=== PATIENT | male | born 1980 | race Two or more races ===

== ENCOUNTER 2024-09-15 16:24 | Emergency (ER) | payer MEDICAID, SELFPAY ==
--- NOTE | 2024-09-15 16:30 | EKG_ITS ---
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
--- NOTE | 2024-09-15 16:31 | XR_ITS ---
Examination: PA lateral chest 2 views Technique: Upright PA lateral chest 2 views Exam date and time: September 15, 2024 1738 hrs. Comparison August 25, 2024 Indications: Chest pain today Findings: Normal heart size No pneumonia or pulmonary edema Old right-sided rib fractures, old right clavicle fracture Impression: No pneumonia or pulmonary edema
--- NOTE | 2024-09-15 16:31 | PD.EDRME ---
Rapid Medical Screening Exam RME Arrival date/time: 09/15/24 16:24 43-year-old male presents the emergency department complaint of chest pain
[2024-09-15 16:36] VITALS: BP 108/77; PULSE 95; RESP 18; TEMP 36.9; O2SAT 100; BMI 26.9
[2024-09-15 16:38] VITALS: PULSE 88; RESP 16; O2SAT 98
[2024-09-15 17:36] LABS: Basophils # (Auto) 0.1 Thou/mm3 (0.0-0.2); Basophils % (Auto) 2 % (0-2.5); Eosinophils # (Auto) 0.2 Thou/mm3 (0.0-0.5); Eosinophils % (Auto) 4 % (0-10); Hematocrit 27.3 % (41.0-53.0); Hemoglobin 8.9 g/dL (13.5-16.0); Immature Granulocytes % (Auto) 0 % (0-0); Immature Granulocytes Auto 0.01 Thou/mm3 (0.00-0.00); Lymphocytes # (Auto) 1.2 Thou/mm3 (1.0-4.8); Lymphocytes % (Auto) 21 % (10-50); Mean Corpuscular HGB Conc 32.6 g/dl (31.0-37.0); Mean Corpuscular Hemoglobin 26.1 pg (25.0-35.0); Mean Corpuscular Volume 80 fL (80-100); Monocytes # (Auto) 0.4 Thou/mm3 (0.0-0.8); Monocytes % (Auto) 8 % (0-12); Neutrophils # (Auto) 3.6 Thou/mm3 (1.8-7.7); Neutrophils % (Auto) 65 % (37-80); Nucleated Red Blood Cell % 0 /100 WBC (0); RDW Standard Deviation 66.5 fL (35.1-43.9); Red Blood Count 3.41 Miln/mm3 (4.50-5.90); White Blood Count 5.5 Thou/mm3 (3.8-10.6)
[2024-09-15 17:50] LABS: INR 1.2 (0.9-1.3); Partial Thromboplastin Time 30.8 Seconds (22.0-36.0); Prothrombin Time 13.3 Seconds (9.0-12.2)
[2024-09-15 18:03] LABS: B-Type Natriuretic Peptide 71 pg/mL (0-100)
[2024-09-15 18:08] LABS: Platelet Count 31 Thou/mm3 (140-440)
[2024-09-15 18:11] LABS: Slide Review Platelets confirmed
[2024-09-15 18:18] LABS: Alanine Aminotransferase 22 U/L (10-49); Albumin, Serum 4.2 gm/dL (3.5-5.0); Albumin/Globulin Ratio 1.2 (1.2-2.2); Alkaline Phosphatase 222 U/L (46-116); Anion Gap 7 (7-16); Aspartate Amino Transferase 89 U/L (0-34); BUN/Creatinine Ratio 8 Ratio (12-20); Bilirubin,Total 1.1 mg/dL (0.3-1.2); Blood Urea Nitrogen < 5 mg/dL (9-23); Calcium 8.4 mg/dL (8.3-10.6); Calcium (Corrected) 8.4 mg/dL (8.5-10.1); Carbon Dioxide 28.8 mMol/L (20.0-31.0); Chloride 104 mMol/L (98-107); Creatinine (Component) 0.6 mg/dL (0.6-1.3); Estimated Creatinine Clearance 145.2 mL/min (>60); Globulin 3.6 gm/dL (2.3-3.5); Glucose 110 mg/dL (74-106); Lipase 43 U/L (12-53); Magnesium 1.8 mg/dL (1.6-2.6); Osmolality,Calculated 277 (275-295); Potassium 3.6 mMol/L (3.4-5.1); Sodium 140 mMol/L (136-145); Total Protein 7.8 gm/dL (5.7-8.2); Troponin I < 0.020 ng/mL (0.0-0.045); eGFR > 60 See Note
[2024-09-15 18:23] LABS: Alcohol, Blood Medical 455.4 mg/dL (0-10.0)
[2024-09-15 22:31] VITALS: BP 120/77; PULSE 81; RESP 16; O2SAT 94
--- NOTE | 2024-09-15 22:43 | EDNOTE_ITS ---
ED Chest Pain RME/HPI General Chief Complaint: Chest Pain Stated Complaint: CHEST PAIN Time Seen by Provider: 09/15/24 22:32 Source: patient and EMS Arrival date/time: 09/15/24 16:24 Mode of arrival: EMS Limitations: no limitations RME / HPI RME / HPI narrative: 09/15/24 16:24 43-year-old male presents the emergency department complaint of chest pain Dr. Van?s Main ED Evaluation: 43-year-old male well known to this facility for recurrent alcohol and continued alcohol use, cirrhosis, esophageal varices (grade 3), GI bleeding, portal hypertension, cirrhosis, hypertensive portal gastropathy, chronic alcohol use disorder, multiple hospital admissions for alcohol intoxication who presents to the emergency department via ambulance with left sided chest pain of which he had for approximately two years. He does admit to heavy alcohol consumption today. Denies nausea or vomiting. He denies melena or blood in stool. Related Data Home Medications ?Medication ?Instructions ?Recorded ?Confirmed cyclobenzaprine 5 mg tablet 5 mg PO 3XD 05/25/24 05/25/24 Previous Rx's ?Medication ?Instructions ?Recorded midodrine 5 mg tablet 5 mg PO TID #90 tabs 05/26/24 ferrous sulfate 325 mg (65 mg 325 mg PO QOD #60 tabs 08/11/24 iron) tablet,delayed release folic acid 1 mg tablet 5 mg (5 x 1 mg) PO QDAY 90 days 08/11/24 #450 tabs pantoprazole 40 mg tablet,delayed 40 mg PO QDAY #60 tabs 08/11/24 release thiamine mononitrate (vit B1) 100 100 mg PO QDAY 90 days #90 tabs 08/11/24 mg tablet chlordiazepoxide HCl 25 mg capsule 25 mg PO TID PRN alcohol 08/26/24 withdrawal #30 caps Allergies Allergy/AdvReac Type Severity Reaction Status Date / Time No Known Allergies Allergy Verified 08/25/24 18:01 Review of Systems Review of Systems Systems Reviewed: All systems reviewed, normal except as documented Past Medical History Past Medical History NEUROLOGIC: Negative Neurological Disorders or Seizures CARDIAC: Positive Cardiac Disorders, Myocardial Infarction, Angina and Hypertension; Negative Cardiac Arrhythmia, Atrial Fibrillation, Heart Murmur, Coronary Artery Disease, Atherosclerotic Heart Disease, Peripheral Vascular Disease, Hypercholesterolemia, Aneurysm, Congestive Heart Failure, Congenital Heart Disease, Rheumatic Fever, Cardiomyopathy, Edema, Pericarditis, Cellulitis, Deep Vein Thrombosis, Hypotension or Varicose Veins RESPIRATORY: Negative Chronic Obstructive Pulmonary Disease (COPD) or Asthma GASTROINTESTINAL: Positive Hepatitis, Gastrointestinal Bleed, Esophageal Varices and Gastroesophageal Reflux Disease; Negative Gastrointestinal Disorders, Cirrhosis, Pancreatitis, Celiac Disease, Gall Bladder Disease, Bettencourt's Esophagus, Colitis, Ulcerative Colitis, Diverticulitis, Diverticulosis, Ulcer, Irritable Bowel, Crohn's Disease, Obstructive Bowel, Hiatal Hernia, Hemorrhoids or Obesity GENITOURINARY: Negative Genitourinary Disorders or Renal Disease MUSCULOSKELETAL: Negative Musculoskeletal Disorders ENT: Negative Cataracts, Glaucoma, Blind, Retinal Detachment, Macular Degeneration, Ear Infection, Deafness or Eye Prosthesis ENDOCRINE: Negative Endocrine Disorders, Diabetes Mellitus Type 1, Diabetes Mellitus Type 2, Hypoglycemia, [place]'s Syndrome, Ada's Disease, Hyperthyroidism, Hypothyroidism, Parathyroid Disease, Pituitary Disease, Systemic Lupus Erythematosus, Syndrome of Inappropriate Antidiuretic Hormone (SIADH), Adrenal Disease or Graves' Disease HEMATOLOGIC: Positive Anemia; Negative Blood Disorders or Sickle Cell Disease PSYCHO/SOCIAL: Positive Recreational Drug Use, Depression and Anxiety OTHER HISTORY: Positive Hospitalization, Falls and Chicken Pox; Negative Autoimmune Disease, Down Syndrome, Developmental Delay, Blood Transfusions, Blood Transfusion Reaction, Anesthesia Reactions, Organ Transplant, MRSA, VRSA, Clostridium Difficile or Cancer Family History FAMILY HISTORY: Negative Family Psychiatric Problems, Family Respiratory Disorders, Family Cardiac Disorders, Family Gastrointestinal Problems, Family Cancer, Family Surgery or Family Anesthesia Reaction Surgical History SURGICAL: Negative Cardiac Surgery, Pacemaker, Endocrine Surgery, Ear Surgery, Abdominal Surgery, Nephrectomy, Joint Replacement, Neurologic Surgery, Vasectomy or Organ Transplant Social History SMOKING STATUS: Never smoker SECOND HAND EXPOSURE: No SUBSTANCE USE: methamphetamine ED Exam Narrative Physical exam: GENERAL APPEARANCE: AxOx4, generally well-appearing, no acute distress. Patient has a strong alcohol smell in breath with slurred speech. HEENT: NC, AT. MMM. EOMI, clear conjunctiva, oropharynx clear. NECK: Supple without lymphadenopathy. No stiffness or restricted ROM. HEART: Normal rate and regular rhythm, normal S1/S1, no m/r/g LUNGS: CTAB, moving air well. No crackles or wheezes are heard. ABDOMEN: Soft, nontender, nondistended with good bowel sounds heard. BACK: No midline C/T/L spine pain or deformity, No CVAT, no obvious deformity. EXTREMITIES: Without cyanosis, clubbing or edema. MUSCULOSKELETAL: FROM of all major joints, no chest tenderness NEUROLOGICAL: Grossly nonfocal. Alert and oriented, moving all 4 extremities. CN not formally tested but appear grossly intact. Observed to ambulate with normal gait. Skin: Warm and dry without any rash. General Limitations: Present no limitations Course Quality Measures none Orders Category Date Time Status EKG (ED ONLY) *Do not use* NOW Care 09/15/24 16:30 Completed EKG (ED Only) Stat Exams 09/15/24 16:30 Draft XR chest 2V Stat Exams 09/15/24 16:31 Completed Alcohol, Blood Medical Stat Lab 09/15/24 17:20 Completed B-Type Natriuretic Peptide Stat Lab 09/15/24 17:20 Completed CBC Stat Lab 09/15/24 17:20 Completed Comprehensive Metabolic Panel Stat Lab 09/15/24 17:20 Completed Hemoglobin and Hematocrit Stat Lab 09/15/24 23:08 Completed Lipase Stat Lab 09/15/24 17:20 Completed Magnesium Stat Lab 09/15/24 17:20 Completed Partial Thromboplastin Time Stat Lab 09/15/24 17:20 Completed Prothrombin Time with INR Stat Lab 09/15/24 17:20 Completed Troponin I Stat Lab 09/15/24 17:20 Completed Vital Signs Vital signs: Vital Signs Temperature 98.5 F 09/15/24 16:36 Pulse Rate 95 09/15/24 16:36 Respiratory Rate 18 09/15/24 16:36 Blood Pressure 108/77 09/15/24 16:36 Pulse Oximetry (%) 100 09/15/24 16:36 Oxygen Delivery Method Room Air 09/15/24 16:36 Procedures -ED Procedure Comment Manual EKG Reading, 09/15/24 1630 hours: Interpreted by me, NSR at a rate of 97, normal intervals, borderline left axis deviation, no acute ST or T wave changes. Chest Pain MDM Narrative MDM Narrative:: Mr. Wells is well-known to me in the emergency department several visits for alcohol intoxication. He he has severe alcohol dependence, quite advanced cirrhosis with portal hypertension and esophageal varices. He he has chronic chest pain of which he has frequent visits for in the emergency department while he is also intoxicated. He is actively intoxicated here in the emergency department. Labs otherwise are consistent with his chronic cirrhosis, with pancytopenia without acute changes. He has anemia with a hemoglobin of 8.9 which is chronic and repeat hemoglobin is 8.1 which is stable. He denies recent bloody emesis, melena or blood in stool. I have counseled him at length of the dangers of continued alcohol consumption and the benefits of cessation. He expresses no interest in stopping alcohol and plans to have another drink upon discharge. Scribe Attestation: I, Catracho Tanner, am scribing for and in the presence of Dr. Van. Provider Notation: Although this document has been carefully reviewed, there may still be some phonetic and other typographical errors. These errors are purely grammatical due to imperfections in the software program and should not be construed in any way to compromise the substance of the patient's medical care during this visit. Patient data External records reviewed:: [facility] previous records (multiple hospital admissions for alcohol intoxication 08/11/24) and EMS form Clinical information provided by:: patient and EMS Social determinants that could affect healthcare access:: alcohol use Patient has the following chronic illnesses:: esophageal varices (grade 3), portal hypertension, cirrhosis, hypertensive port al gastropathy, chronic alcohol use disorder, multiple hospital admissions for alcohol intoxication How is presenting disease/condition affected by chronic disease/condition?: exacerbated by Evaluation data The following diagnostics were reviewed and interpreted by me:: lab results, radiology exam(s) and EKG tracing(s) Lab and/or radiology exams considered but not ordered:: None Interpretation Summary: I personally reviewed the radiology data and agree with the radiologist's interpretation. Examination: PA lateral chest 2 views Technique: Upright PA lateral chest 2 views Exam date and time: September 15, 2024 1738 hrs. Comparison August 25, 2024 Indications: Chest pain today Findings: Normal heart size No pneumonia or pulmonary edema Old right-sided rib fractures, old right clavicle fracture Impression: No pneumonia or pulmonary edema Dictated By: Zach Masters MD Medications / Prescriptions Medications or Prescriptions considered but not ordered:: None Medication administrations:: As above, if any Consultations Consultation(s) initiated? (list below): No Diagnosis Most likely diagnosis given after review of the tests above:: Chest pain, Alcohol abuse, Alcoholism, chronic, Alcohol intoxication Admission Indicated Admission indicated?: not indicated Admission Request Was there a request for admission?: No Disposition Plan Disposition Plan: Discharge Discharge Attestation Discharge Attestation: The patient and all family members were given an opportunity to ask questions and understood the discharge instructions. Discharge instructions specifically effects, indications for sooner follow up or return to the emergency department, and the expected course of current diagnosis. Patient condition: Stable Discharge Plan Plan Patient Disposition: HOME (Self Care) Prescriptions/Referrals Prescriptions/Med Rec: No Action cyclobenzaprine 5 mg tablet 5 mg PO 3XD Patient Comments: TAKE 1 TABLET BY MOUTH NEEDED FOR MUSCLE PAIN 3 TIMES DAILY 10 DAYS midodrine 5 mg tablet 5 mg PO TID Qty: 90 0RF Rx Instructions: do not give last dose of day after 6PM or within 4 hrs of bedtime thiamine mononitrate (vit B1) 100 mg Tablet 100 mg PO QDAY 90 Days Qty: 90 0RF folic acid 1 mg Tablet 5 mg PO QDAY 90 Days Qty: 450 0RF ferrous sulfate 325 mg (65 mg iron) Tablet,Delayed Release (Dr/Ec) 325 mg PO QOD Qty: 60 0RF pantoprazole 40 mg tablet,delayed release (DR/EC) 40 mg PO QDAY Qty: 60 0RF chlordiazepoxide HCl 25 mg capsule 25 mg PO TID PRN (Reason: alcohol withdrawal) Qty: 30 0RF Referrals: No Primary/Family,Physician [Primary Care Provider] - In 1 week Problem List Clinical Impression: Chest pain, Alcohol abuse, Alcoholism, chronic, Alcohol intoxication Patient/Caregiver Discharge Instructions Education Materials: ED Alcohol Intoxication, ED Alcohol Abuse Additional Instructions: Wandy de beber alcohol. Puede realizar un seguimiento con wyatt m?dico de atenci?n primaria y/o con el departamento de lizette mental del condado si se siente pre parado para la rehabilitaci?n de alcohol o drogas. Puede regresar al departamento de emergencias de santiago pronto fausto los s?ntomas empeoren o si nota alg?n problema nuevo que le preocupe. Print Language: Bangladeshi Stand Alone Forms: Kallie Award Info., Patient Portal Info Letter
[2024-09-15 23:37] LABS: Hematocrit 24.5 % (41.0-53.0); Hemoglobin 8.1 g/dL (13.5-16.0)
[2024-09-16 00:26] VITALS: BP 120/77; PULSE 84; RESP 19; O2SAT 96
== END 2024-09-16 00:29 | disposition home or self-care (01) ==
PROVIDERS: Nurse Practitioner Primary Care; Emergency Provider Emergency Medicine
DX: F10.229 Alcohol dependence with intoxication, unspecified (principal); Y90.8 Blood alcohol level of 240 mg/100 ml or more; R07.89 Other chest pain; I25.2 Old myocardial infarction; I10 Essential (primary) hypertension
CPT/HCPCS: 36415; 71046; 80053; 80307; 80320; 81001; 83690; 83735; 83880; 84484; 85014; 85018; 85025; 85610; 85730; 93005; 99283; G0480

== ENCOUNTER 2024-09-19 16:13 | Emergency (ER) | payer MEDICAID, SELFPAY ==
[2024-09-19] VITALS (9 sets, daily range): BP systolic 90–101; BP diastolic 56–69; PULSE 60–74; RESP 15–19; TEMP 36.8; O2SAT 92–98; BMI 24.2
--- NOTE | 2024-09-19 16:57 | EKG_ITS ---
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
--- NOTE | 2024-09-19 17:51 | XR_ITS ---
Examination: AP chest single view Technique: AP portable upright chest single view Exam date and time: September 19, 2024 at 1816 hrs. Indications: Onset chest pain today Findings: Minimal prominence left ventricle No pneumonia or pulmonary edema Again noted old right-sided rib fractures and old right clavicle fracture Impression: No active disease
--- NOTE | 2024-09-19 17:56 | PD.EDCHEST ---
ED Chest Pain RME/HPI General Chief Complaint: Chest Pain Stated Complaint: CHEST PAIN Time Seen by Provider: 09/19/24 17:22 Arrival date/time: 09/19/24 16:13 This is a 43-year-old male who is well known to this facility for recurrent alcohol and continued alcohol use, cirrhosis, esophageal varices (grade 3), GI bleeding, portal hypertension, cirrhosis, hypertensive portal gastropathy, chronic alcohol use disorder, multiple hospital admissions for alcohol intoxication who presents to the emergency department via ambulance with left sided chest pain of which he had for approximately two years. He does admit to heavy alcohol consumption today, he reports his last drink was about 230 today in the afternoon. Denies nausea or vomiting. He denies melena or blood in stool. Patient complains of chest pain that started prior to arrival. Related Data Home Medications ?Medication ?Instructions ?Recorded ?Confirmed cyclobenzaprine 5 mg tablet 5 mg PO 3XD 05/25/24 05/25/24 Previous Rx's ?Medication ?Instructions ?Recorded midodrine 5 mg tablet 5 mg PO TID #90 tabs 05/26/24 ferrous sulfate 325 mg (65 mg 325 mg PO QOD #60 tabs 08/11/24 iron) tablet,delayed release folic acid 1 mg tablet 5 mg (5 x 1 mg) PO QDAY 90 days 08/11/24 #450 tabs pantoprazole 40 mg tablet,delayed 40 mg PO QDAY #60 tabs 08/11/24 release thiamine mononitrate (vit B1) 100 100 mg PO QDAY 90 days #90 tabs 08/11/24 mg tablet chlordiazepoxide HCl 25 mg capsule 25 mg PO TID PRN alcohol 08/26/24 withdrawal #30 caps Allergies Allergy/AdvReac Type Severity Reaction Status Date / Time No Known Allergies Allergy Verified 08/25/24 18:01 Review of Systems Review of Systems Systems Reviewed: All systems reviewed, normal except as documented Past Medical History Past Medical History NEUROLOGIC: Negative Neurological Disorders or Seizures CARDIAC: Positive Cardiac Disorders, Myocardial Infarction, Angina and Hypertension; Negative Cardiac Arrhythmia, Atrial Fibrillation, Heart Murmur, Coronary Artery Disease, Atherosclerotic Heart Disease, Peripheral Vascular Disease, Hypercholesterolemia, Aneurysm, Congestive Heart Failure, Congenital Heart Disease, Rheumatic Fever, Cardiomyopathy, Edema, Pericarditis, Cellulitis, Deep Vein Thrombosis, Hypotension or Varicose Veins RESPIRATORY: Negative Chronic Obstructive Pulmonary Disease (COPD) or Asthma GASTROINTESTINAL: Positive Hepatitis, Gastrointestinal Bleed, Esophageal Varices and Gastroesophageal Reflux Disease; Negative Gastrointestinal Disorders, Cirrhosis, Pancreatitis, Celiac Disease, Gall Bladder Disease, Bettencourt's Esophagus, Colitis, Ulcerative Colitis, Diverticulitis, Diverticulosis, Ulcer, Irritable Bowel, Crohn's Disease, Obstructive Bowel, Hiatal Hernia, Hemorrhoids or Obesity GENITOURINARY: Negative Genitourinary Disorders or Renal Disease MUSCULOSKELETAL: Negative Musculoskeletal Disorders ENT: Negative Cataracts, Glaucoma, Blind, Retinal Detachment, Macular Degeneration, Ear Infection, Deafness or Eye Prosthesis ENDOCRINE: Negative Endocrine Disorders, Diabetes Mellitus Type 1, Diabetes Mellitus Type 2, Hypoglycemia, [place]'s Syndrome, [place]'s Disease, Hyperthyroidism, Hypothyroidism, Parathyroid Disease, Pituitary Disease, Systemic Lupus Erythematosus, Syndrome of Inappropriate Antidiuretic Hormone (SIADH), Adrenal Disease or Graves' Disease HEMATOLOGIC: Positive Anemia; Negative Blood Disorders or Sickle Cell Disease PSYCHO/SOCIAL: Positive Recreational Drug Use, Depression and Anxiety OTHER HISTORY: Positive Hospitalization, Falls and Chicken Pox; Negative Autoimmune Disease, Down Syndrome, Developmental Delay, Blood Transfusions, Blood Transfusion Reaction, Anesthesia Reactions, Organ Transplant, MRSA, VRSA, Clostridium Difficile or Cancer Family History FAMILY HISTORY: Negative Family Psychiatric Problems, Family Respiratory Disorders, Family Cardiac Disorders, Family Gastrointestinal Problems, Family Cancer, Family Surgery or Family Anesthesia Reaction Surgical History SURGICAL: Negative Cardiac Surgery, Pacemaker, Endocrine Surgery, Ear Surgery, Abdominal Surgery, Nephrectomy, Joint Replacement, Neurologic Surgery, Vasectomy or Organ Transplant Social History SMOKING STATUS: Never smoker SECOND HAND EXPOSURE: No SUBSTANCE USE: methamphetamine ED Exam General General appearance: Present alert and in no apparent distress Head Head exam: Present atraumatic Eye Eye exam: Present normal appearance, PERRL and EOMI ENT ENT exam: Present normal exam, normal oropharynx and mucous membranes moist Neck Neck exam: Present normal inspection, full ROM and trachea midline Chest Chest inspection: Present normal inspection and symmetric chest wall rise Respiratory Respiratory exam: Present normal lung sounds bilaterally Cardiovascular Cardiovascular exam: Present regular rate, normal rhythm and normal heart sounds Abdominal Exam Abdominal exam: Present soft Extremities Exam Extremities exam: Present normal inspection and full ROM Back Exam Back exam: Present normal inspection and full ROM Neurological Exam Neurological exam: Present alert and oriented X3 Psychiatric Psychiatric exam: Present normal affect and normal mood Skin Skin exam: Present warm, dry, intact and normal color Course Quality Measures none Orders Category Date Time Status EKG (ED ONLY) *Do not use* NOW Care 09/19/24 16:57 Completed EKG (ED Only) Stat Exams 09/19/24 16:57 Draft XR chest 1V Stat Exams 09/19/24 17:51 Completed BNP [B-Type Natriuretic Peptide] Stat Lab 09/19/24 18:02 Completed CBC Stat Lab 09/19/24 18:02 Completed Comprehensive Metabolic Panel Stat Lab 09/19/24 18:02 Completed Drug Screen,Urine Stat Lab 09/19/24 18:32 Completed Lipase Stat Lab 09/19/24 18:02 Completed Troponin I Stat Lab 09/19/24 18:02 Completed Urinalysis, C/S if Indicated Stat Lab 09/19/24 18:48 Completed Vital Signs Vital signs: Vital Signs Temperature 98.2 F 09/19/24 16:15 Pulse Rate 61 09/19/24 16:15 Respiratory Rate 17 09/19/24 16:15 Blood Pressure 90/56 L 09/19/24 16:15 Pulse Oximetry (%) 95 09/19/24 16:15 Oxygen Delivery Method Room Air 09/19/24 16:15 Procedures -ED EKG Interpretation #1: Date of EK09/19/24 Time of EK:10 Rate: 58 Interpretation: Interpreted by me (sinus bradycardia ) EKG Impression: No ectopy, Normal QRS and Normal intervals Chest Pain MDM Narrative MDM Narrative:: Labs Show hgb hct of 8.5 and 26, 40 plt count, Pt lfts show ast 109, alt 23, and alk phos pf 233. Pt bnp 187, urine unremarkable. Pt hgb appears to be somehat unchanged from previous lab draw. Pt chronic alcoholic. Patient reports feeling better. Patient eating a sandwich and drinking orange juice. Patient told to follow-up with primary provider in 1 to 2 days. Come back to the emergency room if symptoms change or worsen. Patient comfortable plan of care. Patient able top ambulate out of emergency room with no issues, unassited, steady gait. Chest x ray: Findings: Minimal prominence left ventricle No pneumonia or pulmonary edema Again noted old right-sided rib fractures and old right clavicle fracture Impression: No active disease Patient data External records reviewed:: [facility] previous records Clinical information provided by:: patient Social determinants that could affect healthcare access:: alcohol use Patient has the following chronic illnesses:: see hpi How is presenting disease/condition affected by chronic disease/condition?: exacerbated by Evaluation data The following diagnostics were reviewed and interpreted by me:: lab results, radiology exam(s) and EKG tracing(s) Lab and/or radiology exams considered but not ordered:: none Interpretation Summary: see note Medications / Prescriptions Medications or Prescriptions considered but not ordered:: none Medication administrations:: see note Consultations Consultation(s) initiated? (list below): No Diagnosis Most likely diagnosis given after review of the tests above:: chropnic alcoholism Admission Indicated Admission indicated?: not indicated Admission Request Was there a request for admission?: No Disposition Plan Disposition Plan: Discharge Discharge Attestation Discharge Attestation: The patient and all family members were given an opportunity to ask questions and understood the discharge instructions. Discharge instructions specifically effects, indications for sooner follow up or return to the emergency department, and the expected course of current diagnosis. Patient condition: Stable Discharge Plan Plan Patient Disposition: HOME (Self Care) Patient condition on transfer: Stable Prescriptions/Referrals Prescriptions/Med Rec: No Action cyclobenzaprine 5 mg tablet 5 mg PO 3XD Patient Comments: TAKE 1 TABLET BY MOUTH NEEDED FOR MUSCLE PAIN 3 TIMES DAILY 10 DAYS midodrine 5 mg tablet 5 mg PO TID Qty: 90 0RF Rx Instructions: do not give last dose of day after 6PM or within 4 hrs of bedtime thiamine mononitrate (vit B1) 100 mg Tablet 100 mg PO QDAY 90 Days Qty: 90 0RF folic acid 1 mg Tablet 5 mg PO QDAY 90 Days Qty: 450 0RF ferrous sulfate 325 mg (65 mg iron) Tablet,Delayed Release (Dr/Ec) 325 mg PO QOD Qty: 60 0RF pantoprazole 40 mg tablet,delayed release (DR/EC) 40 mg PO QDAY Qty: 60 0RF chlordiazepoxide HCl 25 mg capsule 25 mg PO TID PRN (Reason: alcohol withdrawal) Qty: 30 0RF Referrals: No Primary/Family,Physician [Primary Care Provider] - In 1 week Problem List Clinical Impression: Chest pain, Alcoholism, Alkaline phosphatase elevation Patient/Caregiver Discharge Instructions Discharge Activity: activity as tolerated Education Materials: Alcoholism Resources Additional Instructions: Follow up with primary provider in 1-2 days. Come back to ED if symptoms change or worsen Print Language: Serbian Stand Alone Forms: Kallie Award Info., Patient Portal Info Letter PA/KINDERGARTEN TEACHER ASSISTANT Supervising Physician PA/KINDERGARTEN TEACHER ASSISTANT Supervising Physician: osmar
[2024-09-19 18:41] LABS: Basophils # (Auto) 0.1 Thou/mm3 (0.0-0.2); Basophils % (Auto) 2 % (0-2.5); Eosinophils # (Auto) 0.4 Thou/mm3 (0.0-0.5); Eosinophils % (Auto) 7 % (0-10); Immature Granulocytes % (Auto) 0 % (0-0); Immature Granulocytes Auto 0.01 Thou/mm3 (0.00-0.00); Lymphocytes # (Auto) 1.6 Thou/mm3 (1.0-4.8); Lymphocytes % (Auto) 24 % (10-50); Mean Corpuscular HGB Conc 32.7 g/dl (31.0-37.0); Mean Corpuscular Hemoglobin 26.2 pg (25.0-35.0); Mean Corpuscular Volume 80 fL (80-100); Monocytes # (Auto) 0.6 Thou/mm3 (0.0-0.8); Monocytes % (Auto) 9 % (0-12); Neutrophils # (Auto) 3.9 Thou/mm3 (1.8-7.7); Neutrophils % (Auto) 59 % (37-80); Nucleated Red Blood Cell % 0 /100 WBC (0); RDW Standard Deviation 66.4 fL (35.1-43.9); Red Blood Count 3.24 Miln/mm3 (4.50-5.90); White Blood Count 6.6 Thou/mm3 (3.8-10.6)
[2024-09-19 18:42] LABS: Hemoglobin 8.5 g/dL (13.5-16.0); Platelet Count 40 Thou/mm3 (140-440); Slide Review Platelets confirmed
[2024-09-19 18:45] LABS: B-Type Natriuretic Peptide 187 pg/mL (0-100)
[2024-09-19 18:47] LABS: Alanine Aminotransferase 23 U/L (10-49); Albumin/Globulin Ratio 1.2 (1.2-2.2); Alkaline Phosphatase 233 U/L (46-116); Anion Gap 10 (7-16); Aspartate Amino Transferase 109 U/L (0-34); BUN/Creatinine Ratio 12 Ratio (12-20); Bilirubin,Total 1.1 mg/dL (0.3-1.2); Blood Urea Nitrogen 7 mg/dL (9-23); Calcium 8.4 mg/dL (8.3-10.6); Calcium (Corrected) 8.4 mg/dL (8.5-10.1); Carbon Dioxide 22.4 mMol/L (20.0-31.0); Chloride 105 mMol/L (98-107); Creatinine (Component) 0.6 mg/dL (0.6-1.3); Estimated Creatinine Clearance 144.7 mL/min (>60); Globulin 3.3 gm/dL (2.3-3.5); Glucose 104 mg/dL (74-106); Lipase 42 U/L (12-53); Osmolality,Calculated 271 (275-295); Potassium 3.5 mMol/L (3.4-5.1); Sodium 137 mMol/L (136-145); Total Protein 7.3 gm/dL (5.7-8.2); Troponin I < 0.020 ng/mL (0.0-0.045); eGFR > 60 See Note
[2024-09-19 19:02] LABS: Collection Type, Urine Voided; Squamous Epithelial Cell,Urine 0 /hpf (0-5)
[2024-09-19 19:06] LABS: Bilirubin,Urine Negative (Negative); Blood,Urine Negative (Negative); Clarity,Urine Clear (Clear/Hazy); Color,Urine Colorless (Lt Yel-Yel); Culture Indicated,Urine Not Indicated; Glucose, Urine Negative (Negative); Ketones,Urine Negative (Negative); Leukocyte Esterase,Urine Negative (Negative); Nitrite,Urine Negative (Negative); PH,Urine 6.5 (5.0-7.0); Protein,Urine Negative (Neg - Trace); RBC,Urine 1 /hpf (0-3); Specific Gravity,Urine 1.004 (1.001-1.035); Urobilinogen,Urine Negative mg/dL (0.0-1.0); WBC,Urine < 1 /hpf (0-5)
[2024-09-19 19:37] LABS: Amphetamine/Methamp Scrn,U Negative (Negative); Barbiturate Screen,Urine Negative (Negative); Benzodiazepines Screen,Urine Positive (Negative); Benzoylecgonine Screen, Ur Negative (Negative); Fentanyl Screen,Urine Negative (Negative); Opiate Screen,Urine Negative (Negative); THC Screen,Urine Negative (Negative)
== END 2024-09-19 21:06 | disposition home or self-care (01) ==
PROVIDERS: Nurse Practitioner Family; Emergency Provider Emergency Medicine
DX: R07.9 Chest pain, unspecified (principal); F10.20 Alcohol dependence, uncomplicated; R00.1 Bradycardia, unspecified; K70.30 Alcoholic cirrhosis of liver without ascites; I85.10 Secondary esophageal varices without bleeding
CPT/HCPCS: 36415; 71045; 80053; 80307; 81001; 83690; 83880; 84484; 85025; 93005; 99283

== ENCOUNTER 2024-11-21 14:24 | Emergency (ER) | payer MEDICAID, SELFPAY ==
[2024-11-21 14:26] VITALS: BMI 25.8
[2024-11-21 14:38] VITALS: BP 128/76; PULSE 113; RESP 20; TEMP 36.7; O2SAT 95
--- NOTE | 2024-11-21 15:04 | XR_ITS ---
Examination: CT brain head without contrast. 2-D sagittal coronal reconstructions Date and time of exam:November 21, 2024 1510 hrs. Comparison: March 24, 2024 Indications: General denies head pain beginning 3 days ago, worse today CTDI: vol (mGy):46.5 DLP: (mGycm):961 Technique: Multiple CT axial sections of the brain have been obtained, 5 mm slice thickness. Contrast has not been administered. 2-D sagittal, coronal reconstructions have been obtained Low dose protocols were performed. One or more of the following dose reduction techniques were used; automated exposure control, adjustment of the mA and/or KV according to patient size, use of iterative reconstruction technique. Findings: No significant ventricular enlargement. Intra-axial or extra-axial hemorrhage density is not seen. No mass effect or midline shift Basal cisterns are not remarkable. Fourth ventricle is midline. Cranial vault intact. Impression: Negative for acute hemorrhage, mass effect or midline shift Significant chronic left frontal left ethmoid sinusitis
--- NOTE | 2024-11-21 15:06 | PD.EDRME ---
Rapid Medical Screening Exam RME Arrival date/time: 11/21/24 14:24 44-year-old male alcoholic presents to the emergency department today with complaint of headaches and bodyaches Chief Complaint: Headache Time Seen by Provider: 11/21/24 14:37 Vital signs: Vital Signs Temperature 98.1 F 11/21/24 14:38 Pulse Rate 113 H 11/21/24 14:38 Respiratory Rate 20 11/21/24 14:38 Blood Pressure 128/76 11/21/24 14:38 Pulse Oximetry (%) 95 11/21/24 14:38 Oxygen Delivery Method Room Air 11/21/24 14:38
[2024-11-21 15:20] LABS: Collection Type, Urine Clean Catch; Squamous Epithelial Cell,Urine 0 /hpf (0-5)
[2024-11-21 15:32] LABS: Amorphous Crystals,Urine Present (Absent); Bacteria,Urine Rare; Bilirubin,Urine Negative (Negative); Blood,Urine Negative (Negative); Clarity,Urine Clear (Clear/Hazy); Color,Urine Yellow (Lt Yel-Yel); Culture Indicated,Urine Not Indicated; Glucose, Urine Negative (Negative); Ketones,Urine Negative (Negative); Leukocyte Esterase,Urine Positive (Negative); Nitrite,Urine Negative (Negative); PH,Urine 6.5 (5.0-7.0); Protein,Urine Negative (Neg - Trace); RBC,Urine 4 /hpf (0-3); Specific Gravity,Urine 1.009 (1.001-1.035); WBC,Urine 3 /hpf (0-5)
[2024-11-21 15:43] LABS: Basophils # (Auto) 0.1 Thou/mm3 (0.0-0.2); Basophils % (Auto) 1 % (0-2.5); Eosinophils # (Auto) 0.3 Thou/mm3 (0.0-0.5); Eosinophils % (Auto) 5 % (0-10); Hematocrit 26.8 % (41.0-53.0); Immature Granulocytes % (Auto) 0 % (0-0); Immature Granulocytes Auto 0.02 Thou/mm3 (0.00-0.00); Lymphocytes # (Auto) 0.9 Thou/mm3 (1.0-4.8); Lymphocytes % (Auto) 16 % (10-50); Mean Corpuscular HGB Conc 32.8 g/dl (31.0-37.0); Mean Corpuscular Hemoglobin 27.6 pg (25.0-35.0); Mean Corpuscular Volume 84 fL (80-100); Monocytes # (Auto) 0.5 Thou/mm3 (0.0-0.8); Monocytes % (Auto) 9 % (0-12); Neutrophils # (Auto) 3.9 Thou/mm3 (1.8-7.7); Neutrophils % (Auto) 69 % (37-80); Nucleated Red Blood Cell % 0 /100 WBC (0); Red Blood Count 3.19 Miln/mm3 (4.50-5.90); White Blood Count 5.7 Thou/mm3 (3.8-10.6)
[2024-11-21 15:47] LABS: Hemoglobin 8.8 g/dL (13.5-16.0); Platelet Count 35 Thou/mm3 (140-440)
[2024-11-21 15:48] LABS: Slide Review Platelets confirmed
[2024-11-21 15:59] LABS: INR 1.3 (0.9-1.3); Partial Thromboplastin Time 32.7 Seconds (22.0-36.0); Prothrombin Time 13.5 Seconds (9.0-12.2)
[2024-11-21 16:21] LABS: Alanine Aminotransferase 13 U/L (10-49); Albumin, Serum 4.2 gm/dL (3.5-5.0); Alkaline Phosphatase 289 U/L (46-116); Anion Gap 10 (7-16); Aspartate Amino Transferase 80 U/L (0-34); BUN/Creatinine Ratio 8 Ratio (12-20); Bilirubin,Total 1.5 mg/dL (0.3-1.2); Blood Urea Nitrogen < 5 mg/dL (9-23); Calcium 8.5 mg/dL (8.3-10.6); Calcium (Corrected) 8.5 mg/dL (8.5-10.1); Chloride 98 mMol/L (98-107); Creatinine (Component) 0.6 mg/dL (0.6-1.3); Estimated Creatinine Clearance 143.3 mL/min (>60); Globulin 4.3 gm/dL (2.3-3.5); Glucose 111 mg/dL (74-106); Lipase 36 U/L (12-53); Magnesium 1.5 mg/dL (1.6-2.6); Osmolality,Calculated 270 (275-295); Potassium 3.6 mMol/L (3.4-5.1); Sodium 136 mMol/L (136-145); Total Protein 8.5 gm/dL (5.7-8.2); eGFR > 60 See Note
[2024-11-21 18:27] LABS: Amphetamine/Methamp Scrn,U Negative (Negative); Barbiturate Screen,Urine Negative (Negative); Benzodiazepines Screen,Urine Positive (Negative); Benzoylecgonine Screen, Ur Negative (Negative); Fentanyl Screen,Urine Negative (Negative); Opiate Screen,Urine Negative (Negative); THC Screen,Urine Negative (Negative)
--- NOTE | 2024-11-21 22:57 | PC.NURSE ---
PT CALLED FROM LOBBY AND I RECEIVED NO ANSWER X1
--- NOTE | 2024-11-21 23:22 | PC.NURSE ---
PT CALLED FROM THE LOBBY X2 WITH NO ANSWER
--- NOTE | 2024-11-21 23:35 | PC.NURSE ---
PT CALLED FROM LOBBY X3 WITH NO ANSWER
== END 2024-11-21 23:49 | disposition left against medical advice (07) ==
LOC: SERX 15:30
PROVIDERS: Nurse Practitioner Primary Care; Emergency Provider Emergency Medicine; PCP Family Medicine
DX: R51.9 Headache, unspecified (principal); Z53.29 Procedure and treatment not carried out because of patient's decision for other reasons
CPT/HCPCS: 36415; 70450; 80053; 80307; 80320; 81001; 83690; 83735; 85025; 85610; 85730; 87400; 87811; 99284; G0480

== ENCOUNTER 2024-11-24 16:22 | Emergency (ER) | payer MEDICAID, SELFPAY ==
[2024-11-24 16:49] VITALS: PULSE 80; O2SAT 98
[2024-11-24 17:30] VITALS: BP 108/73; PULSE 79; RESP 19; TEMP 37.1; O2SAT 95; BMI 30.7
--- NOTE | 2024-11-24 17:30 | PD.EDHA ---
ED Headache RME/HPI General Chief Complaint: Headache Stated Complaint: HEADACHES Time Seen by Provider: 11/24/24 16:54 Arrival date/time: 11/24/24 16:22 44-year-old male reports with complaints of persistent headache. Patient was evaluated and found to had ethmoid sinusitis. Patient states that he has not taken any medications for symptoms he denies shortness of breath dizziness blurred vision ringing in ears chest pain nausea vomiting weakness or fatigue. Limitations: no limitations Related Data Home Medications ?Medication ?Instructions ?Recorded ?Confirmed cyclobenzaprine 5 mg tablet 5 mg PO 3XD 05/25/24 05/25/24 Previous Rx's ?Medication ?Instructions ?Recorded midodrine 5 mg tablet 5 mg PO TID #90 tabs 05/26/24 ferrous sulfate 325 mg (65 mg 325 mg PO QOD #60 tabs 08/11/24 iron) tablet,delayed release pantoprazole 40 mg tablet,delayed 40 mg PO QDAY #60 tabs 08/11/24 release chlordiazepoxide HCl 25 mg capsule 25 mg PO TID PRN alcohol 08/26/24 withdrawal #30 caps azithromycin 250 mg tablet 250 mg PO QDAY 4 days #4 tabs 11/24/24 (Zithromax) ibuprofen 800 mg tablet 800 mg PO TID PRN pain #30 tabs 11/24/24 Allergies Allergy/AdvReac Type Severity Reaction Status Date / Time No Known Allergies Allergy Verified 11/24/24 16:53 Review of Systems Constitutional Constitutional: Denies chills, Denies fever(s) and Reports headache(s) ENT Ears, Nose, Mouth, and Throat: Denies dizziness, Reports headache(s), Denies nasal congestion and Denies sore throat Cardiovascular Cardiovascular: Denies chest pain and Denies dyspnea Respiratory Respiratory: Denies cough and Denies dyspnea Gastrointestinal Gastrointestinal: Denies nausea and Denies vomiting Integumentary/Breasts Skin/Breast: Denies rash and Denies skin pain Neurologic Neurologic: Denies dizziness and Reports headache(s) Psychiatric Psychiatric: Denies anxiety and Denies depression Past Medical History Past Medical History NEUROLOGIC: Negative Neurological Disorders or Seizures CARDIAC: Positive Cardiac Disorders, Myocardial Infarction, Angina and Hypertension; Negative Cardiac Arrhythmia, Atrial Fibrillation, Heart Murmur, Coronary Artery Disease, Atherosclerotic Heart Disease, Peripheral Vascular Disease, Hypercholesterolemia, Aneurysm, Congestive Heart Failure, Congenital Heart Disease, Rheumatic Fever, Cardiomyopathy, Edema, Pericarditis, Cellulitis, Deep Vein Thrombosis, Hypotension or Varicose Veins RESPIRATORY: Negative Chronic Obstructive Pulmonary Disease (COPD) or Asthma GASTROINTESTINAL: Positive Hepatitis, Gastrointestinal Bleed, Esophageal Varices and Gastroesophageal Reflux Disease; Negative Gastrointestinal Disorders, Cirrhosis, Pancreatitis, Celiac Disease, Gall Bladder Disease, Bettencourt's Esophagus, Colitis, Ulcerative Colitis, Diverticulitis, Diverticulosis, Ulcer, Irritable Bowel, Crohn's Disease, Obstructive Bowel, Hiatal Hernia, Hemorrhoids or Obesity GENITOURINARY: Negative Genitourinary Disorders or Renal Disease MUSCULOSKELETAL: Negative Musculoskeletal Disorders ENT: Negative Cataracts, Glaucoma, Blind, Retinal Detachment, Macular Degeneration, Ear Infection, Deafness or Eye Prosthesis ENDOCRINE: Negative Endocrine Disorders, Diabetes Mellitus Type 1, Diabetes Mellitus Type 2, Hypoglycemia, Awais's Syndrome, [place]'s Disease, Hyperthyroidism, Hypothyroidism, Parathyroid Disease, Pituitary Disease, Systemic Lupus Erythematosus, Syndrome of Inappropriate Antidiuretic Hormone (SIADH), Adrenal Disease or Graves' Disease HEMATOLOGIC: Positive Anemia; Negative Blood Disorders or Sickle Cell Disease PSYCHO/SOCIAL: Positive Recreational Drug Use, Depression and Anxiety OTHER HISTORY: Positive Hospitalization, Falls and Chicken Pox; Negative Autoimmune Disease, Down Syndrome, Developmental Delay, Blood Transfusions, Blood Transfusion Reaction, Anesthesia Reactions, Organ Transplant, MRSA, VRSA, Clostridium Difficile or Cancer Family History FAMILY HISTORY: Negative Family Psychiatric Problems, Family Respiratory Disorders, Family Cardiac Disorders, Family Gastrointestinal Problems, Family Cancer, Family Surgery or Family Anesthesia Reaction Surgical History SURGICAL: Negative Cardiac Surgery, Pacemaker, Endocrine Surgery, Ear Surgery, Abdominal Surgery, Nephrectomy, Joint Replacement, Neurologic Surgery, Vasectomy or Organ Transplant Social History SMOKING STATUS: Never smoker SECOND HAND EXPOSURE: No SUBSTANCE USE: methamphetamine ED Exam General Limitations: Present no limitations General appearance: Present alert and in no apparent distress Head Head exam: Present atraumatic Eye Eye exam: Present normal appearance, PERRL and EOMI ENT ENT exam: Present normal exam, normal oropharynx and mucous membranes moist Neck Neck exam: Present normal inspection, full ROM and trachea midline Chest Chest inspection: Present normal inspection and symmetric chest wall rise Respiratory Respiratory exam: Present normal lung sounds bilaterally Cardiovascular Cardiovascular exam: Present regular rate, normal rhythm and normal heart sounds Abdominal Exam Abdominal exam: Present soft and normal bowel sounds Extremities Exam Extremities exam: Present normal inspection and full ROM Back Exam Back exam: Present normal inspection and full ROM Neurological Exam Neurological exam: Present alert, oriented X3 and CN II-XII intact Psychiatric Psychiatric exam: Present normal affect and normal mood Skin Skin exam: Present warm, dry, intact and normal color Course Course Course Narrative: 44-year-old male reports with complaints of persistent headache. Patient CT indicated ethmoid sinusitis patient will be treated with antibiotics and pain medication he is advised to hydrate well from his prescriptions at the pharmacy and follow-up with his primary care provider. He is stable nontoxic-appearing with stable vital signs will be discharged Quality Measures none Headache Patient data External records reviewed:: None Clinical information provided by:: patient Social determinants that could affect healthcare access:: none Patient has the following chronic illnesses:: none How is presenting disease/condition affected by chronic disease/condition?: no chronic disease Evaluation data The following diagnostics were reviewed and interpreted by me:: other (specify) Lab and/or radiology exams considered but not ordered:: none Interpretation Summary: n/a Medications / Prescriptions Medications or Prescriptions considered but not ordered:: n/a Medication administrations:: Toradol azithromycin Consultations Consultation(s) initiated? (list below): No Diagnosis Differential diagnosis headache: migraine and tension headache Most likely diagnosis given after review of the tests above:: Acute sinusitis Admission Indicated Admission indicated?: not indicated Admission Request Was there a request for admission?: No Disposition Plan Disposition Plan: Discharge Discharge Attestation Discharge Attestation: The patient and all family members were given an opportunity to ask questions and understood the discharge instructions. Discharge instructions specifically effects, indications for sooner follow up or return to the emergency department, and the expected course of current diagnosis. Patient condition: Stable Discharge Plan Plan Patient Disposition: HOME (Self Care) Prescriptions/Referrals Prescriptions/Med Rec: New azithromycin [Zithromax] 250 mg tablet 250 mg PO QDAY 4 Days Qty: 4 0RF Rx Instructions: start on day 2 of therapy ibuprofen 800 mg tablet 800 mg PO TID PRN (Reason: pain) Qty: 30 0RF No Action cyclobenzaprine 5 mg tablet 5 mg PO 3XD Patient Comments: TAKE 1 TABLET BY MOUTH NEEDED FOR MUSCLE PAIN 3 TIMES DAILY 10 DAYS midodrine 5 mg tablet 5 mg PO TID Qty: 90 0RF Rx Instructions: do not give last dose of day after 6PM or within 4 hrs of bedtime ferrous sulfate 325 mg (65 mg iron) Tablet,Delayed Release (Dr/Ec) 325 mg PO QOD Qty: 60 0RF pantoprazole 40 mg tablet,delayed release (DR/EC) 40 mg PO QDAY Qty: 60 0RF chlordiazepoxide HCl 25 mg capsule 25 mg PO TID PRN (Reason: alcohol withdrawal) Qty: 30 0RF Problem List Clinical Impression: Sinusitis Patient/Caregiver Discharge Instructions Discharge Activity: activity as tolerated Education Materials: ED Sinusitis (Antibiotic Treatment) Additional Instructions: Take medication as directed hydrate well follow with your primary care provider if no improvement after antibiotic course. Return to emergency department if symptoms should worsen Print Language: Estonian Stand Alone Forms: Kallie Award Info., Patient Portal Info Letter
[2024-11-24] MEDS: KETOROLAC INJ 60 MG/2 ML VIAL 30 MG IM (17:43)
[2024-11-24] MEDS: AZITHROMYCIN SUSP 200 MG/5 ML 500 MG PO (17:43)
== END 2024-11-24 17:59 | disposition home or self-care (01) ==
PROVIDERS: Emergency Provider Emergency Medicine; PCP Family Medicine
DX: J01.90 Acute sinusitis, unspecified (principal)
CPT/HCPCS: 96372; 99283; J1885; A9270

== ENCOUNTER 2024-11-28 08:28 | Emergency (ER) | payer MEDICAID, SELFPAY ==
[2024-11-28 08:40] VITALS: BMI 27.4
[2024-11-28 08:55] VITALS: BP 114/82; PULSE 99; RESP 18; TEMP 37.2; O2SAT 97
--- NOTE | 2024-11-28 08:58 | EKG_ITS ---
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
--- NOTE | 2024-11-28 09:17 | XR_ITS ---
Examination: CT brain head without contrast. 2-D sagittal coronal reconstructions Date and time of exam:November 28, 2024 0931 hours Comparison November 21, 2024 INDICATIONS: Patient fell today with injury to the head, head pain frontal scalp abrasions CTDI: vol (mGy):48.2 DLP: (mGycm):1012 Technique: Multiple CT axial sections of the brain have been obtained, 5 mm slice thickness. Contrast has not been administered. 2-D sagittal, coronal reconstructions have been obtained Low dose protocols were performed. One or more of the following dose reduction techniques were used; automated exposure control, adjustment of the mA and/or KV according to patient size, use of iterative reconstruction technique. Findings: No significant ventricular enlargement. Intra-axial or extra-axial hemorrhage density is not seen. No mass effect or midline shift Basal cisterns are not remarkable. Fourth ventricle is midline. Cranial vault intact. Frontal ethmoid sinusitis Impression: Negative for acute hemorrhage, mass effect or midline shift
[2024-11-28 09:40] LABS: Basophils % (Auto) 1 % (0-2.5); Eosinophils % (Auto) 0 % (0-10); Hematocrit 24.9 % (41.0-53.0); Immature Granulocytes % (Auto) 1 % (0-0); Immature Granulocytes Auto 0.03 Thou/mm3 (0.00-0.00); Lymphocytes # (Auto) 0.2 Thou/mm3 (1.0-4.8); Lymphocytes % (Auto) 3 % (10-50); Mean Corpuscular HGB Conc 32.5 g/dl (31.0-37.0); Mean Corpuscular Hemoglobin 27.3 pg (25.0-35.0); Mean Corpuscular Volume 84 fL (80-100); Monocytes # (Auto) 0.4 Thou/mm3 (0.0-0.8); Monocytes % (Auto) 6 % (0-12); Neutrophils # (Auto) 5.1 Thou/mm3 (1.8-7.7); Neutrophils % (Auto) 90 % (37-80); Nucleated Red Blood Cell % 0 /100 WBC (0); RDW Standard Deviation 55.2 fL (35.1-43.9); Red Blood Count 2.97 Miln/mm3 (4.50-5.90); White Blood Count 5.7 Thou/mm3 (3.8-10.6)
[2024-11-28 09:43] LABS: Hemoglobin 8.1 g/dL (13.5-16.0)
[2024-11-28] MEDS: DIAZEPAM 5 MG TABLET 20 MG PO (09:43)
[2024-11-28] MEDS: LORazepam 2 MG/ML VIAL 4 MG IVP (09:43)
[2024-11-28 09:44] LABS: Platelet Count 24 Thou/mm3 (140-440)
[2024-11-28] MEDS: ONDANSETRON INJ 2 MG/ML INJ 2 ML 4 MG IV (09:44)
[2024-11-28 09:53] LABS: INR 1.4 (0.9-1.3); Partial Thromboplastin Time 29.2 Seconds (22.0-36.0); Prothrombin Time 14.7 Seconds (9.0-12.2)
[2024-11-28 09:59] LABS: Alanine Aminotransferase 14 U/L (10-49); Albumin, Serum 4.1 gm/dL (3.5-5.0); Alcohol, Blood Medical 42.2 mg/dL (0-10.0); Alkaline Phosphatase 247 U/L (46-116); Anion Gap 15 (7-16); Aspartate Amino Transferase 71 U/L (0-34); BUN/Creatinine Ratio 9 Ratio (12-20); Bilirubin,Total 2.3 mg/dL (0.3-1.2); Blood Urea Nitrogen 6 mg/dL (9-23); Calcium 8.7 mg/dL (8.3-10.6); Calcium (Corrected) 8.7 mg/dL (8.5-10.1); Carbon Dioxide 19.5 mMol/L (20.0-31.0); Chloride 103 mMol/L (98-107); Creatinine (Component) 0.7 mg/dL (0.6-1.3); Glucose 104 mg/dL (74-106); Osmolality,Calculated 271 (275-295); Potassium 3.1 mMol/L (3.4-5.1); Sodium 137 mMol/L (136-145); Total Protein 8.1 gm/dL (5.7-8.2); eGFR > 60 See Note
[2024-11-28 10:05] LABS: Slide Review Platelets confirmed
[2024-11-28 10:27] VITALS: BP 100/68; PULSE 120; RESP 17; TEMP 37.2; O2SAT 95
--- NOTE | 2024-11-28 11:02 | PD.EDALCOH ---
ED Alcohol RME/HPI General Chief Complaint: Alcohol Stated Complaint: ETOH, shaking, vomiting, fall yesterday Time Seen by Provider: 11/28/24 09:17 Arrival date/time: 11/28/24 08:28 RME / HPI RME / HPI narrative: 44 year old male with history of recurrent alcohol and continued alcohol use, cirrhosis, esophageal varices, GI bleeding, hypertensive portal gastropathy, multiple hospital admissions for alcohol intoxication presents to the ED for evaluation of shaking and vomiting beginning today. Reports he last had half of a 25oz bottle of beer at 09:00 am today. Patient additionally reports he fell yesterday and struck the right side of his head on the floor. No other complaints reported while in the ED. Related Data Home Medications ?Medication ?Instructions ?Recorded ?Confirmed cyclobenzaprine 5 mg tablet 5 mg PO 3XD 05/25/24 05/25/24 Previous Rx's ?Medication ?Instructions ?Recorded midodrine 5 mg tablet 5 mg PO TID #90 tabs 05/26/24 ferrous sulfate 325 mg (65 mg 325 mg PO QOD #60 tabs 08/11/24 iron) tablet,delayed release pantoprazole 40 mg tablet,delayed 40 mg PO QDAY #60 tabs 08/11/24 release chlordiazepoxide HCl 25 mg capsule 25 mg PO TID PRN alcohol 08/26/24 withdrawal #30 caps ibuprofen 800 mg tablet 800 mg PO TID PRN pain #30 tabs 11/24/24 Allergies Allergy/AdvReac Type Severity Reaction Status Date / Time No Known Allergies Allergy Verified 11/24/24 16:53 Review of Systems Review of Systems Narrative Review of Systems: Gen: No fever, no chills, no weight loss, +shaking EYES: No discharge, no visual changes, no pain HEENT: +head injury. No ear pain, no congestion, no sore throat PULM: no shortness of breath, no cough, no congestion CV: No chest pain, no dyspnea on exertion, no palpitations, no chest tightness GI:+nausea, +vomiting, no diarrhea, no pain, no constipation : No frequency, no urgency,? no dysuria Musc/skel: No joint pain, no back pain Skin: No rash, no ecchymosis, no lesions Psyc: +chronic alcohol use Neuro: No weakness, no headache Past Medical History Past Medical History CARDIAC: Positive Cardiac Disorders, Myocardial Infarction, Angina and Hypertension GASTROINTESTINAL: Positive Hepatitis, Gastrointestinal Bleed, Esophageal Varices and Gastroesophageal Reflux Disease HEMATOLOGIC: Positive Anemia PSYCHO/SOCIAL: Positive Recreational Drug Use, Depression and Anxiety OTHER HISTORY: Positive Hospitalization, Falls and Chicken Pox Family History FAMILY HISTORY: Negative Family Psychiatric Problems, Family Respiratory Disorders, Family Cardiac Disorders, Family Gastrointestinal Problems, Family Cancer, Family Surgery or Family Anesthesia Reaction Surgical History SURGICAL: Negative Cardiac Surgery, Pacemaker, Endocrine Surgery, Ear Surgery, Abdominal Surgery, Nephrectomy, Joint Replacement, Neurologic Surgery or Vasectomy Social History SMOKING STATUS: Never smoker SECOND HAND EXPOSURE: No SUBSTANCE USE: methamphetamine ED Exam Narrative Physical exam: GENERAL APPEARANCE: Awake, mild to moderate full body tremors. HEENT: NC, 3x3cm right frontal forehead contusion and abrasion, no laceration. MMM. EOMI, clear conjunctiva, oropharynx clear. NECK: Supple without lymphadenopathy. No stiffness or restricted ROM. HEART: Normal rate and regular rhythm, normal S1/S1, no m/r/g LUNGS: CTAB, moving air well. No crackles or wheezes are heard. ABDOMEN: Soft, nontender, nondistended with good bowel sounds heard. BACK: No midline C/T/L spine pain or deformity, No CVAT, no obvious deformity. EXTREMITIES: Without cyanosis, clubbing or edema. MUSCULOSKELETAL: FROM of all major joints, no chest tenderness NEUROLOGICAL: Grossly nonfocal. Alert, awake, moving all 4 extremities. CN not formally tested but appear grossly intact. mild to moderate full body tremors Skin: Warm and dry without any rash. Course Quality Measures none Orders Category Date Time Status EKG (ED ONLY) *Do not use* NOW Care 11/28/24 08:58 Completed Insert IV STAT Care 11/28/24 09:[address] head/brain wo con Stat Exams 11/28/24 09:17 Completed EKG (ED Only) Stat Exams 11/28/24 08:58 Draft Alcohol, Blood Medical Stat Lab 11/28/24 09:25 Completed CBC Stat Lab 11/28/24 09:25 Completed Comprehensive Metabolic Panel Stat Lab 11/28/24 09:25 Completed PTT [Partial Thromboplastin Time] Stat Lab 11/28/24 09:25 Completed Prothrombin Time with INR Stat Lab 11/28/24 09:25 Completed Diazepam [Valium] Med 11/28/24 09:20 Discontinued 20 mg PO X1 ONE LORazepam [Ativan Inj] Med 11/28/24 09:18 Discontinued 4 mg IVP X1 ONE Ondansetron Inj [Zofran Inj] Med 11/28/24 09:18 Discontinued 4 mg IV X1 ONE Reevaluation(s) Reevaluation #1: Patient is in no distress, sleeping comfortably and is arousable. We reviewed all the results, analysis, and treatment plans. Patient is amenable to discharge. Strict return precautions were outlined. Patient was discharged in stable condition. Time: 11:15 Vital Signs Vital signs: Vital Signs Temperature 98.9 F 11/28/24 08:55 Pulse Rate 99 11/28/24 08:55 Respiratory Rate 18 11/28/24 08:55 Blood Pressure 114/82 11/28/24 08:55 Pulse Oximetry (%) 97 11/28/24 08:55 Oxygen Delivery Method Room Air 11/28/24 08:55 Pulse ox is 97% on room air which is adequate. Discharge Plan Plan Patient Disposition: HOME (Self Care) Prescriptions/Referrals Prescriptions/Med Rec: No Action cyclobenzaprine 5 mg tablet 5 mg PO 3XD Patient Comments: TAKE 1 TABLET BY MOUTH NEEDED FOR MUSCLE PAIN 3 TIMES DAILY 10 DAYS midodrine 5 mg tablet 5 mg PO TID Qty: 90 0RF Rx Instructions: do not give last dose of day after 6PM or within 4 hrs of bedtime ferrous sulfate 325 mg (65 mg iron) Tablet,Delayed Release (Dr/Ec) 325 mg PO QOD Qty: 60 0RF pantoprazole 40 mg tablet,delayed release (DR/EC) 40 mg PO QDAY Qty: 60 0RF chlordiazepoxide HCl 25 mg capsule 25 mg PO TID PRN (Reason: alcohol withdrawal) Qty: 30 0RF ibuprofen 800 mg tablet 800 mg PO TID PRN (Reason: pain) Qty: 30 0RF Referrals: No Primary/Family,Physician [Primary Care Provider] - In 1 week Problem List Clinical Impression: Alcohol intoxication, Closed head injury Patient/Caregiver Discharge Instructions Education Materials: ED Alcohol Intoxication, ED Head Injury (Adult) Additional Instructions: No flory alcohol en exceso, considere suspender el consumo de alcohol por completo para mejorar. Puede realizar un seguimiento con wyatt m?dico de atenci?n primaria o con el departamento de lizette mental del condado si se siente preparado para la rehabilitaci?n de alcohol y drogas. Puede regresar al departamento de emergencias de santiago pronto fausto los s?ntomas empeoren o si nota alg?n problema nuevo que le preocupe. Print Language: Polish Stand Alone Forms: Kallie Award Info., Patient Portal Info Letter Alcohol MDM Narrative MDM Narrative: Shakila Landers am scribing for and in the presence of Dr. Van. Patient data External records reviewed:: [facility] previous records (I reviewed ED visit on 11/24/2024) Clinical information provided by:: patient Social determinants that could affect healthcare access:: alcohol use Patient has the following chronic illnesses:: recurrent alcohol and continued alcohol use, cirrhosis, esophageal varices, GI bleeding, hypertensive portal gastropathy, multiple hospital admissions for alcohol intoxication How is presenting disease/condition affected by chronic disease/condition?: exacerbated by Evaluation data The following diagnostics were reviewed and interpreted by me:: lab results, radiology exam(s) and EKG tracing(s) (Sinus tachycardia, HR 107, normal axis, normal interval, no acute ST or T-wave changes, no STEMI. ) Lab and/or radiology exams considered but not ordered:: None Interpretation Summary: Ordering Physician: Gen Van MD Date of Service: 11/28/24 Procedure(s): CT head/brain wo con Accession Number(s): [id number] cc: Gen Van MD; Zach Masters MD; NO PRIMARY/FAMILY,PHYSICIAN~ Examination: CT brain head without contrast. 2-D sagittal coronal reconstructions Date and time of exam:November 28, 2024 0931 hours Comparison November 21, 2024 INDICATIONS: Patient fell today with injury to the head, head pain frontal scalp abrasions CTDI: vol (mGy):48.2 DLP: (mGycm):1012 Technique: Multiple CT axial sections of the brain have been obtained, 5 mm slice thickness. Contrast has not been administered. 2-D sagittal, coronal reconstructions have been obtained Low dose protocols were performed. One or more of the following dose reduction techniques were used; automated exposure control, adjustment of the mA and/or KV according to patient size, use of iterative reconstruction technique. Findings: No significant ventricular enlargement. Intra-axial or extra-axial hemorrhage density is not seen. No mass effect or midline shift Basal cisterns are not remarkable. Fourth ventricle is midline. Cranial vault intact. Frontal ethmoid sinusitis Impression: Negative for acute hemorrhage, mass effect or midline shift Dictated By: Zach Masters MD Signed By: <Electronically signed by Zach Masters MD in OV> 11/28/24 1105 Medications / Prescriptions Medications or Prescriptions considered but not ordered:: None Medication administrations:: Medication Administration History Discontinued Medications Diazepam (Diazepam 5 Mg Tablet) 20 mg PO X1 ONE Stop: 11/28/24 09:21 Last Admin: 11/28/24 09:43 Dose: 20 mg Documented By: STEPHANIE Lorazepam (Lorazepam 2 Mg/Ml Vial) 4 mg IVP X1 ONE Stop: 11/28/24 09:19 Last Admin: 11/28/24 09:43 Dose: 4 mg Documented By: STEPHANIE Ondansetron HCl (Ondansetron Inj 2 Mg/Ml Inj 2 Ml) 4 mg IV X1 ONE; Protocol Stop: 11/28/24 09:19 Last Admin: 11/28/24 09:44 Dose: 4 mg Documented By: STEPHANIE See above Consultations Consultation(s) initiated? (list below): No Diagnosis Differential diagnosis alcohol: alcohol withdrawal delirium, hypomagnesemia, alcohol intoxication, alcohol ketoacidosis, alcohol withdrawal syndrome and alcohol withdrawal seizure Most likely diagnosis given after review of the tests above:: Alcohol intoxication Closed head injury Admission Indicated Admission indicated?: not indicated Admission Request Was there a request for admission?: No Disposition Plan Disposition Plan: Discharge Discharge Attestation Discharge Attestation: The patient and all family members were given an opportunity to ask questions and understood the discharge instructions. Discharge instructions specifically effects, indications for sooner follow up or return to the emergency department, and the expected course of current diagnosis. Patient condition: Stable
[2024-11-28 12:47] VITALS: BP 109/76; PULSE 123; RESP 19; TEMP 36.9; O2SAT 98
== END 2024-11-28 13:02 | disposition home or self-care (01) ==
PROVIDERS: Emergency Provider Emergency Medicine
DX: F10.129 Alcohol abuse with intoxication, unspecified (principal); K74.60 Unspecified cirrhosis of liver; K76.6 Portal hypertension; I10 Essential (primary) hypertension; S09.90XA Unspecified injury of head, initial encounter; W19.XXXA Unspecified fall, initial encounter
CPT/HCPCS: 36415; 70450; 80053; 80320; 85025; 85610; 85730; 93005; 96374; 96375; 99284; J2060; J2405; A9270; G0480

== ENCOUNTER 2024-12-06 14:57 | Emergency (ER) | payer MEDICAID, SELFPAY ==
[2024-12-06 15:02] VITALS: BP 123/74; PULSE 95; RESP 16; TEMP 36.9; O2SAT 98
[2024-12-06 15:06] VITALS: PULSE 116; RESP 18; O2SAT 98
[2024-12-06 15:11] VITALS: BMI 26.8
--- NOTE | 2024-12-06 16:26 | EDNOTE_ITS ---
ED Abdominal Pain RME/HPI General Chief Complaint: Abdominal Pain Stated complaint: POSS SEIZURE Time seen by provider: 12/06/24 15:44 Arrival date/time: 12/06/24 14:57 This is a 44-year-old male with history of recurrent alcohol and continued alcohol use, cirrhosis, esophageal varices, GI bleeding, hypertensive portal gastropathy, multiple hospital admissions for alcohol intoxication presents to the ED for evaluation of shaking and vomiting beginning today. Patient thinks he might of had a seizure today. Reports he last had a 25oz bottle of beer last night. Patient reports that he wants to stop drinking. Related Data Home Medications ?Medication ?Instructions ?Recorded ?Confirmed cyclobenzaprine 5 mg tablet 5 mg PO 3XD 05/25/2405/25 Previous Rx's ?Medication ?Instructions ?Recorded midodrine 5 mg tablet 5 mg PO TID #90 tabs 4 ferrous sulfate 325 mg (65 mg 325 mg PO QOD #60 tabs 1 iron) tablet,delayed release pantoprazole 40 mg tablet,delayed 40 mg PO QDAY #60 ta bs 08/11/24 release chlordiazepoxide HCl 25 mg capsule 25 mg PO TID PRN al cohol 08/26/24 withdrawal #30 caps ibuprofen 800 mg tablet 800 mg PO TID PRN pain #30 t abs 11/24/24 Allergies Allergy/AdvReac Type Severity Reaction Status Date / Time No Known Allergies Allergy Verified 12/13/24 18:55 Review of Systems Review of Systems Systems Reviewed: All systems reviewed, normal except as documented Past Medical History Past Medical History CARDIAC: Positive Cardiac Disorders, Myocardial Infarction, Angina and Hypertension GASTROINTESTINAL: Positive Hepatitis, Gastrointestinal Bleed, Esophageal Varices and Gastroesophageal Reflux Disease HEMATOLOGIC: Positive Anemia PSYCHO/SOCIAL: Positive Recreational Drug Use, Depression and Anxiety OTHER HISTORY: Positive Hospitalization, Falls and Chicken Pox Family History FAMILY HISTORY: Negative Family Psychiatric Problems, Family Respiratory Disorders, Family Cardiac Disorders, Family Gastrointestinal Problems, Family Cancer, Family Surgery or Family Anesthesia Reaction Surgical History SURGICAL: Negative Cardiac Surgery, Pacemaker, Endocrine Surgery, Ear Surgery, Abdominal Surgery, Nephrectomy, Joint Replacement, Neurologic Surgery or Vasectomy Social History SMOKING STATUS: Never smoker SECOND HAND EXPOSURE: No SUBSTANCE USE: methamphetamine ED Exam General General appearance: Present alert and in no apparent distress Head Head exam: Present atraumatic Eye Eye exam: Present normal appearance, PERRL and EOMI ENT ENT exam: Present normal exam, normal oropharynx and mucous membranes moist Neck Neck exam: Present normal inspection, full ROM and trachea midline Chest Chest inspection: Present normal inspection and symmetric chest wall rise Respiratory Respiratory exam: Present normal lung sounds bilaterally Cardiovascular Cardiovascular exam: Present regular rate, normal rhythm and normal heart sounds Abdominal Exam Abdominal exam: Present soft Extremities Exam Extremities exam: Present normal inspection and full ROM Back Exam Back exam: Present normal inspection and full ROM Neurological Exam Neurological exam: Present alert, oriented X3 and other (+tremor) Psychiatric Psychiatric exam: Present normal affect and normal mood Skin Skin exam: Present warm, dry, intact and normal color Course Quality Measures none Orders Category Date Time Status Ambulate Patient ONCE Care 12/06/24 21:27 Completed IV [Insert IV] STAT Care 12/06/24 16:27 Completed CBC Stat Lab 12/06/24 16:35 Completed Comprehensive Metabolic Panel Stat Lab 12/06/24 16:35 Completed Lipase Stat Lab 12/06/24 16:35 Completed Urinalysis, C/S if Indicated Stat Lab 12/06/24 16:00 Completed Acetaminophen Tab [Tylenol ES Tab] Med 12/06/24 20:40 Discontinued 1,000 mg PO X1 ONE Ketorolac Inj [Toradol Inj] Med 12/06/24 20:40 Discontinued 30 mg IVP X1 ONE LORazepam [Ativan Inj] Med 12/06/24 20:40 Discontinued 1 mg IVP X1 ONE LORazepam [Ativan Inj] Med 12/06/24 16:26 Discontinued 2 mg IVP X1 ONE LORazepam [Ativan] Med 12/06/24 21:56 Discontinued 1 mg PO X1 ONE Sodium Chloride 0.9% 1000 ml [Ns] 1,000 ml Med 12/06/24 16:27 Discontinued IV 999 mls/hr Vital Signs Vital signs: Vital Signs Temperature 98.4 F 12/06/24 15:02 Pulse Rate 95 12/06/24 15:02 Respiratory Rate 16 12/06/24 15:02 Blood Pressure 123/74 12/06/24 15:02 Pulse Oximetry (%) 98 12/06/24 15:02 Oxygen Delivery Method Room Air 12/06/24 15:02 Abdominal Pain MDM MDM Narrative MDM Narrative:: Labs show white count of 5.3, hemoglobin and hematocrit of 8.3 and 25.1. Platelet count is 47. BMP shows elevated LFTs. Patient has been seen recently and labs look very similar from previously. Patient was having tremors upon arrival. Patient was given 2 mg initially of Ativan IV. Then was given additional dose of 1 mg IV. Patient was complaining of body pain. Patient was given a dose of Tylenol and Toradol. Patient was also given a liter of IV fluids. Patient felt better. Patient reports that he would like to stop drinking. Will send patient home with Librium. Patient told to come back to the emergency room if symptoms change or worsen. Patient data External records reviewed:: [facility] previous records Clinical information provided by:: patient Social determinants that could affect healthcare access:: none Patient has the following chronic illnesses:: alcoholism How is presenting disease/condition affected by chronic disease/condition?: exacerbated by Evaluation data The following diagnostics were reviewed and interpreted by me:: lab results and radiology exam(s) Lab and/or radiology exams considered but not ordered:: none Interpretation Summary: see note Medications / Prescriptions Medications or Prescriptions considered but not ordered:: none Medication administrations:: Medication Administration History Discontinued Medications Acetaminophen (Acetaminophen 500 Mg Tablet) 1,000 mg PO X1 ONE Stop: 12/06/24 20:41 Last Admin: 12/06/24 21:01 Dose: 1,000 mg Documented By: EF Sodium Chloride (Ns) 1,000 mls @ 999 mls/hr IV .Q1H1M ONE Stop: 12/06/24 17:27 Last Infusion: 12/06/24 17:45 Dose: Infused Documented By: Admin: 12/06/24 16:41 Dose: 999 mls/hr Documented By: BRENDA Ketorolac Tromethamine (Ketorolac Inj 30 Mg/Ml Vial) 30 mg IVP X1 ONE Stop: 12/06/24 20:41 Last Admin: 12/06/24 21:01 Dose: 30 mg Documented By: EF Lorazepam (Lorazepam 2 Mg/Ml Vial) 2 mg IVP X1 ONE Stop: 12/06/24 16:27 Last Admin: 12/06/24 16:40 Dose: 2 mg Documented By: SM Lorazepam (Lorazepam 2 Mg/Ml Vial) 1 mg IVP X1 ONE Stop: 12/06/24 20:41 Last Admin: 12/06/24 21:07 Dose: 1 mg Documented By: EF Lorazepam (Lorazepam 0.5 Mg Tablet) 1 mg PO X1 ONE Stop: 12/06/24 21:57 Last Admin: 12/06/24 22:18 Dose: 1 mg Documented By: EF see note Consultations Consultation(s) initiated? (list below): No Diagnosis Differential diagnosis abdominal pain: abdominal pain, acute appendicitis and other (alcohol withdrawal) Most likely diagnosis given after review of the tests above:: possible alcohol withdrawal Admission Indicated Admission indicated?: not indicated Admission Request Was there a request for admission?: No Disposition Plan Disposition Plan: Discharge Discharge Attestation Discharge Attestation: The patient and all family members were given an opportunity to ask questions and understood the discharge instructions. Discharge instructions specifically effects, indications for sooner follow up or return to the emergency department, and the expected course of current diagnosis. Patient condition: Stable Discharge Plan Plan Patient Disposition: HOME (Self Care) Patient condition on transfer: Stable Prescriptions/Referrals Prescriptions/Med Rec: No Action cyclobenzaprine 5 mg tablet 5 mg PO 3XD Patient Comments: TAKE 1 TABLET BY MOUTH NEEDED FOR MUSCLE PAIN 3 TIMES DAILY 10 DAYS midodrine 5 mg tablet 5 mg PO TID Qty: 90 0RF Rx Instructions: do not give last dose of day after 6PM or within 4 hrs of bedtime ferrous sulfate 325 mg (65 mg iron) Tablet,Delayed Release (Dr/Ec) 325 mg PO QOD Qty: 60 0RF pantoprazole 40 mg tablet,delayed release (DR/EC) 40 mg PO QDAY Qty: 60 0RF chlordiazepoxide HCl 25 mg capsule 25 mg PO TID PRN (Reason: alcohol withdrawal) Qty: 30 0RF ibuprofen 800 mg tablet 800 mg PO TID PRN (Reason: pain) Qty: 30 0RF Referrals: No Primary/Family,Physician [Primary Care Provider] - In 1 week Problem List Clinical Impression: Alcoholism, Elevated liver enzymes Patient/Caregiver Discharge Instructions Discharge Activity: activity as tolerated Education Materials: Alcohol Addiction, Recovering from Addiction ... Additional Instructions: Follow-up with primary provider in 1 to 2 days. Come back to the emergency room if symptoms change or worsen. Take medication as prescribed. Print Language: Norwegian Stand Alone Forms: Kallie Award Info., Patient Portal Info Letter PA/HARVESTER OPERATOR Supervising Physician PA/HARVESTER OPERATOR Supervising Physician: osmar
[2024-12-06 16:27] VITALS: BP 130/80; PULSE 104; RESP 20; O2SAT 99
[2024-12-06] MEDS: LORazepam 2 MG/ML VIAL IVP (16:40)
[2024-12-06] MEDS: SODIUM CHLORIDE 0.9% 1000 ML 1,000 ML 999 ML IV (16:41)
[2024-12-06 16:48] LABS: Basophils % (Auto) 1 % (0-2.5); Eosinophils % (Auto) 1 % (0-10); Hematocrit 25.1 % (41.0-53.0); Immature Granulocytes % (Auto) 0 % (0-0); Immature Granulocytes Auto 0.02 Thou/mm3 (0.00-0.00); Lymphocytes # (Auto) 0.3 Thou/mm3 (1.0-4.8); Lymphocytes % (Auto) 5 % (10-50); Mean Corpuscular HGB Conc 33.1 g/dl (31.0-37.0); Mean Corpuscular Hemoglobin 27.3 pg (25.0-35.0); Mean Corpuscular Volume 83 fL (80-100); Monocytes # (Auto) 0.5 Thou/mm3 (0.0-0.8); Monocytes % (Auto) 9 % (0-12); Neutrophils # (Auto) 4.5 Thou/mm3 (1.8-7.7); Neutrophils % (Auto) 84 % (37-80); Nucleated Red Blood Cell % 0 /100 WBC (0); RDW Standard Deviation 54.6 fL (35.1-43.9); Red Blood Count 3.04 Miln/mm3 (4.50-5.90); White Blood Count 5.3 Thou/mm3 (3.8-10.6)
[2024-12-06 16:56] LABS: Collection Type, Urine Voided; Squamous Epithelial Cell,Urine 0 /hpf (0-5)
[2024-12-06 17:02] LABS: Bilirubin,Urine Negative (Negative); Blood,Urine Trace (Negative); Clarity,Urine Clear (Clear/Hazy); Color,Urine Yellow (Lt Yel-Yel); Culture Indicated,Urine Not Indicated; Glucose, Urine Negative (Negative); Ketones,Urine Trace (Negative); Leukocyte Esterase,Urine Negative (Negative); Nitrite,Urine Negative (Negative); PH,Urine 7.5 (5.0-7.0); Protein,Urine 2+ (Neg - Trace); RBC,Urine 2 /hpf (0-3); Specific Gravity,Urine 1.015 (1.001-1.035); WBC,Urine 1 /hpf (0-5)
[2024-12-06 17:03] LABS: Alanine Aminotransferase 15 U/L (10-49); Albumin, Serum 3.9 gm/dL (3.5-5.0); Albumin/Globulin Ratio 0.9 (1.2-2.2); Alkaline Phosphatase 245 U/L (46-116); Anion Gap 10 (7-16); Aspartate Amino Transferase 74 U/L (0-34); BUN/Creatinine Ratio 10 Ratio (12-20); Bilirubin,Total 2.6 mg/dL (0.3-1.2); Blood Urea Nitrogen 6 mg/dL (9-23); Calcium 8.7 mg/dL (8.3-10.6); Calcium (Corrected) 8.8 mg/dL (8.5-10.1); Carbon Dioxide 23.8 mMol/L (20.0-31.0); Chloride 102 mMol/L (98-107); Creatinine (Component) 0.6 mg/dL (0.6-1.3); Estimated Creatinine Clearance 143.3 mL/min (>60); Globulin 4.3 gm/dL (2.3-3.5); Glucose 96 mg/dL (74-106); Lipase 27 U/L (12-53); Osmolality,Calculated 269 (275-295); Potassium 3.4 mMol/L (3.4-5.1); Sodium 136 mMol/L (136-145); Total Protein 8.2 gm/dL (5.7-8.2); eGFR > 60 See Note
[2024-12-06 17:07] LABS: Hemoglobin 8.3 g/dL (13.5-16.0); Platelet Count 47 Thou/mm3 (140-440)
[2024-12-06 17:25] LABS: Slide Review Platelets confirmed
[2024-12-06 17:52] VITALS: BP 110/86; PULSE 108; RESP 16; TEMP 37.7; O2SAT 100
[2024-12-06] MEDS: ACETAMINOPHEN 500 MG TABLET 1000 MG PO (21:01)
[2024-12-06] MEDS: KETOROLAC INJ 30 MG/ML VIAL IVP (21:01)
[2024-12-06] MEDS: LORazepam 2 MG/ML VIAL 1 MG IVP (21:07)
[2024-12-06] MEDS: LORazepam 0.5 MG TABLET 1 MG PO (22:18)
[2024-12-06 22:28] VITALS: BP 121/79; PULSE 99; RESP 16; TEMP 37.2; O2SAT 100
== END 2024-12-06 22:28 | disposition home or self-care (01) ==
PROVIDERS: Nurse Practitioner Family; Emergency Provider Emergency Medicine
DX: F10.20 Alcohol dependence, uncomplicated (principal); K74.60 Unspecified cirrhosis of liver; K76.6 Portal hypertension
CPT/HCPCS: 36415; 80053; 80307; 81001; 83690; 85025; 96361; 96374; 96375; 96376; 99284; J1885; J2060; J7030; A9270

== ENCOUNTER 2024-12-13 18:52 | Emergency (ER) | payer MEDICAID, SELFPAY ==
[2024-12-13 18:52] VITALS: PULSE 100; RESP 18; O2SAT 97
[2024-12-13 19:34] VITALS: BP 123/80; PULSE 96; RESP 18; TEMP 37; O2SAT 99
--- NOTE | 2024-12-13 19:56 | EKG_ITS ---
[facility] Test Date: 2024-12-13 Pat Name: KOLBY RON Department: Room: - Gender: Male [employer]: : 1980 Requested By: Gavin Stuart Order Number: [id number] Reading MD: Gavin Stuart Measurements Intervals [place] Rate: 76 P: 80 ID: [id number] QRS: -10 QRSD: 103 T: 64 QT: 412 QTc: 465 Interpretive Statements SINUS RHYTHM Compared to ECG 11/28/2024 11:03:38 Sinus tachycardia no longer present /store/S0/[id number].pdf
--- NOTE | 2024-12-13 19:57 | PD.EDRME ---
Rapid Medical Screening Exam E Arrival date/time: 12/13/24 18:52 44M with history of alcoholism presents to ED with YAÑEZ and CP. Patient has been drinking today. Chief Complaint: Alcohol Vital signs: Vital Signs Temperature 98.6 F 12/13/24 19:34 Pulse Rate 96 12/13/24 19:34 Respiratory Rate 18 12/13/24 19:34 Blood Pressure 123/80 12/13/24 19:34 Pulse Oximetry (%) 99 12/13/24 19:34 Oxygen Delivery Method Room Air 12/13/24 19:34
[2024-12-13 20:12] VITALS: BP 120/101; PULSE 91; RESP 20; O2SAT 94
[2024-12-14 05:13] VITALS: BP 127/77; PULSE 103; RESP 18; TEMP 37.2; O2SAT 99
--- NOTE | 2024-12-14 05:15 | PD.EDALCOH ---
ED Alcohol RME/HPI General Chief Complaint: Alcohol Stated Complaint: ALCOHOL INTOXICATION Source: patient Arrival date/time: 12/13/24 18:52 Mode of arrival: ambulatory Limitations: no limitations RME / HPI RME / HPI narrative: 12/13/24 18:52 44M with history of alcoholism presents to ED with YAÑEZ and CP. Patient has been drinking today. Dr. Steel?s Main ED Evaluation: 44-year-old male with a history of chronic alcoholism who presents to the emergency department with complaints of headache. He reports that he has been drinking alcohol today but does not provide details on the quantity or duration of his alcohol intake. The patient does not endorse other symptoms such as fever, chills, cough, abdominal pain, or recent illness. Patient is well known to this facility for alcohol intoxication and when he shantal up, he wants to discharge. Related Data Home Medications ?Medication ?Instructions ?Recorded ?Confirmed cyclobenzaprine 5 mg tablet 5 mg PO 3XD 05/25/24 05/25/24 Previous Rx's ?Medication ?Instructions ?Recorded midodrine 5 mg tablet 5 mg PO TID #90 tabs 05/26/24 ferrous sulfate 325 mg (65 mg 325 mg PO QOD #60 tabs 08/11/24 iron) tablet,delayed release pantoprazole 40 mg tablet,delayed 40 mg PO QDAY #60 tabs 08/11/24 release chlordiazepoxide HCl 25 mg capsule 25 mg PO TID PRN alcohol 08/26/24 withdrawal #30 caps ibuprofen 800 mg tablet 800 mg PO TID PRN pain #30 tabs 11/24/24 Allergies Allergy/AdvReac Type Severity Reaction Status Date / Time No Known Allergies Allergy Verified 12/13/24 18:55 Review of Systems Review of Systems Systems Reviewed: All systems reviewed, normal except as documented Past Medical History Past Medical History NEUROLOGIC: Negative Neurological Disorders or Seizures CARDIAC: Positive Cardiac Disorders, Myocardial Infarction, Angina and Hypertension; Negative Cardiac Arrhythmia, Atrial Fibrillation, Heart Murmur, Coronary Artery Disease, Atherosclerotic Heart Disease, Peripheral Vascular Disease, Hypercholesterolemia, Aneurysm, Congestive Heart Failure, Congenital Heart Disease, Rheumatic Fever, Cardiomyopathy, Edema, Pericarditis, Cellulitis, Deep Vein Thrombosis, Hypotension or Varicose Veins RESPIRATORY: Negative Chronic Obstructive Pulmonary Disease (COPD) or Asthma GASTROINTESTINAL: Positive Hepatitis, Gastrointestinal Bleed, Esophageal Varices and Gastroesophageal Reflux Disease; Negative Gastrointestinal Disorders, Cirrhosis, Pancreatitis, Celiac Disease, Gall Bladder Disease, Bettencourt's Esophagus, Colitis, Ulcerative Colitis, Diverticulitis, Diverticulosis, Ulcer, Irritable Bowel, Crohn's Disease, Obstructive Bowel, Hiatal Hernia, Hemorrhoids or Obesity GENITOURINARY: Negative Genitourinary Disorders or Renal Disease MUSCULOSKELETAL: Negative Musculoskeletal Disorders ENT: Negative Cataracts, Glaucoma, Blind, Retinal Detachment, Macular Degeneration, Ear Infection, Deafness or Eye Prosthesis ENDOCRINE: Negative Endocrine Disorders, Diabetes Mellitus Type 1, Diabetes Mellitus Type 2, Hypoglycemia, Awais's Syndrome, [place]'s Disease, Hyperthyroidism, Hypothyroidism, Parathyroid Disease, Pituitary Disease, Systemic Lupus Erythematosus, Syndrome of Inappropriate Antidiuretic Hormone (SIADH), Adrenal Disease or Graves' Disease HEMATOLOGIC: Positive Anemia; Negative Blood Disorders or Sickle Cell Disease PSYCHO/SOCIAL: Positive Recreational Drug Use, Depression and Anxiety OTHER HISTORY: Positive Hospitalization, Falls and Chicken Pox; Negative Autoimmune Disease, Down Syndrome, Developmental Delay, Blood Transfusions, Blood Transfusion Reaction, Anesthesia Reactions, Organ Transplant, MRSA, VRSA, Clostridium Difficile or Cancer Family History FAMILY HISTORY: Negative Family Psychiatric Problems, Family Respiratory Disorders, Family Cardiac Disorders, Family Gastrointestinal Problems, Family Cancer, Family Surgery or Family Anesthesia Reaction Surgical History SURGICAL: Negative Cardiac Surgery, Pacemaker, Endocrine Surgery, Ear Surgery, Abdominal Surgery, Nephrectomy, Joint Replacement, Neurologic Surgery, Vasectomy or Organ Transplant Social History SMOKING STATUS: Never smoker SECOND HAND EXPOSURE: No SUBSTANCE USE: methamphetamine ED Exam Narrative Physical exam: GENERAL APPEARANCE: alert and oriented x 4, well-developed, well-nourished, no acute distress VITALS: All vitals were reviewed and the pulse ox is 99% on room air, which is normal according to my interpretation. HEENT: normocephalic, atraumatic NECK: supple LUNGS: no respiratory distress, normal effort HEART: good peripheral perfusion ABDOMEN: non distended EXTREMITIES: atraumatic NEUROLOGIC: awake; alert and oriented x4; cranial nerves II-XII grossly intact PSYCHIATRIC: appropriate mood and affect SKIN: warm, dry, normal color; no rashes General Limitations: Present no limitations Course Quality Measures none Orders Category Date Time Status EKG (ED ONLY) *Do not use* NOW Care 12/13/24 19:56 Completed EKG (ED Only) Stat Exams 12/13/24 19:56 Draft mg Hyd/Al Hyd/Sherwin Susp [Maalox Susp] Med 12/14/24 05:14 Once 30 ml PO X1 ONE Vital Signs Vital signs: Vital Signs Temperature 98.6 F 12/13/24 19:34 Pulse Rate 96 12/13/24 19:34 Respiratory Rate 18 12/13/24 19:34 Blood Pressure 123/80 12/13/24 19:34 Pulse Oximetry (%) 99 12/13/24 19:34 Oxygen Delivery Method Room Air 12/13/24 19:34 Discharge Plan Plan Patient Disposition: HOME (Self Care) Disposition Comment: Stable for discharge Patient condition on transfer: Stable Prescriptions/Referrals Prescriptions/Med Rec: No Action cyclobenzaprine 5 mg tablet 5 mg PO 3XD Patient Comments: TAKE 1 TABLET BY MOUTH NEEDED FOR MUSCLE PAIN 3 TIMES DAILY 10 DAYS midodrine 5 mg tablet 5 mg PO TID Qty: 90 0RF Rx Instructions: do not give last dose of day after 6PM or within 4 hrs of bedtime ferrous sulfate 325 mg (65 mg iron) Tablet,Delayed Release (Dr/Ec) 325 mg PO QOD Qty: 60 0RF pantoprazole 40 mg tablet,delayed release (DR/EC) 40 mg PO QDAY Qty: 60 0RF chlordiazepoxide HCl 25 mg capsule 25 mg PO TID PRN (Reason: alcohol withdrawal) Qty: 30 0RF ibuprofen 800 mg tablet 800 mg PO TID PRN (Reason: pain) Qty: 30 0RF Referrals: Cezar Adams MD [Primary Care Provider] - In 1 week Problem List Clinical Impression: Alcoholism, chronic, Alcohol intoxication, Acute epigastric pain Patient/Caregiver Discharge Instructions Discharge Activity: activity as tolerated Education Materials: Alcoholism Resources, Alcoholism: Getting Help, Addiction: Getting Help, ED Epigastric Pain (Uncertain Cause) Additional Instructions: Please return to the emergency department for any worsening or any further medical problems. Otherwise you should follow-up with your primary care doctor within the next several days. Print Language: Upper Sorbian Stand Alone Forms: Kallie Award Info., Patient Portal Info Letter Alcohol MDM Narrative MDM Narrative: Scribe Attestation: I, Catracho Tanner, am scribing for and in the presence of Dr. Steel. Provider Notation: Although this document has been carefully reviewed, there may still be some phonetic and other typographical errors. These errors are purely grammatical due to imperfections in the software program and should not be construed in any way to compromise the substance of the patient's medical care during this visit. Patient data External records reviewed:: [facility] previous records Clinical information provided by:: patient Social determinants that could affect healthcare access:: alcohol use Patient has the following chronic illnesses:: see PMH How is presenting disease/condition affected by chronic disease/condition?: uneffected by Evaluation data The following diagnostics were reviewed and interpreted by me:: EKG tracing(s) Lab and/or radiology exams considered but not ordered:: n/a Interpretation Summary: Patient's EKG at 20:11 showed NSR at 76 with normal axis, no ectopy. No signs of acute ischemia. Medications / Prescriptions Medications or Prescriptions considered but not ordered:: n/a Medication administrations:: Medication Administration History Al Hydrox/Mg Hydrox/Simethicone (Mg Hyd/Al Hyd/Sherwin (Maalox Reg) Susp 30 Ml Udc) 30 ml PO X1 ONE Stop: 12/14/24 05:15 as above Consultations Consultation(s) initiated? (list below): No Diagnosis Differential diagnosis alcohol: other (alcoholic gastritis, pancreatitis, GERD) Most likely diagnosis given after review of the tests above:: Alcohol intoxication, Epigastric pain Admission Indicated Admission indicated?: not indicated Admission Request Was there a request for admission?: No Disposition Plan Disposition Plan: Discharge Discharge Attestation Discharge Attestation: The patient and all family members were given an opportunity to ask questions and understood the discharge instructions. Discharge instructions specifically effects, indications for sooner follow up or return to the emergency department, and the expected course of current diagnosis. Patient condition: Stable
[2024-12-14] MEDS: MG HYD/AL HYD/SIME (Maalox Reg) SUSP 30 ML UDC PO (05:28)
[2024-12-14 05:31] VITALS: RESP 18
== END 2024-12-14 05:34 | disposition home or self-care (01) ==
PROVIDERS: Emergency Provider Emergency Medicine; PCP Family Medicine
DX: F10.229 Alcohol dependence with intoxication, unspecified (principal)
CPT/HCPCS: 93005; 99283; A9270

== ENCOUNTER 2024-12-30 17:39 | Emergency (ER) | payer MEDICAID, SELFPAY ==
[2024-12-30 17:40] VITALS: PULSE 99; RESP 20; O2SAT 95; BMI 24.4
[2024-12-30 17:44] VITALS: BP 107/70; PULSE 103; RESP 18; TEMP 37.1; O2SAT 98; BMI 27.9
--- NOTE | 2024-12-30 17:57 | PD.EDEXREM ---
ED Extremity Problem RME/HPI General Chief complaint: Extremity Problem,Nontraumatic Stated complaint: Left leg pain Time Seen by Provider: 12/30/24 17:46 Arrival date/time: 12/30/24 17:39 RME / HPI RME / HPI Narrative: 44-year-old male presents with complaint of bilateral leg pain that started yesterday. This pain is chronic for the patient and he has had multiple prior visits for similar pain. No trauma or falls. No leg swelling. Related Data Home Medications ?Medication ?Instructions ?Recorded ?Confirmed cyclobenzaprine 5 mg tablet 5 mg PO 3XD 05/25/24 05/25/24 Previous Rx's ?Medication ?Instructions ?Recorded midodrine 5 mg tablet 5 mg PO TID #90 tabs 05/26/24 ferrous sulfate 325 mg (65 mg 325 mg PO QOD #60 tabs 08/11/24 iron) tablet,delayed release pantoprazole 40 mg tablet,delayed 40 mg PO QDAY #60 tabs 08/11/24 release chlordiazepoxide HCl 25 mg capsule 25 mg PO TID PRN alcohol 08/26/24 withdrawal #30 caps ibuprofen 800 mg tablet 800 mg PO TID PRN pain #30 tabs 11/24/24 Allergies Allergy/AdvReac Type Severity Reaction Status Date / Time No Known Allergies Allergy Verified 12/13/24 18:55 Review of Systems Review of Systems Systems Reviewed: All systems reviewed, normal except as documented Past Medical History Past Medical History NEUROLOGIC: Negative Neurological Disorders or Seizures CARDIAC: Positive Cardiac Disorders, Myocardial Infarction, Angina and Hypertension; Negative Cardiac Arrhythmia, Atrial Fibrillation, Heart Murmur, Coronary Artery Disease, Atherosclerotic Heart Disease, Peripheral Vascular Disease, Hypercholesterolemia, Aneurysm, Congestive Heart Failure, Congenital Heart Disease, Rheumatic Fever, Cardiomyopathy, Edema, Pericarditis, Cellulitis, Deep Vein Thrombosis, Hypotension or Varicose Veins RESPIRATORY: Negative Chronic Obstructive Pulmonary Disease (COPD) or Asthma GASTROINTESTINAL: Positive Hepatitis, Gastrointestinal Bleed, Esophageal Varices and Gastroesophageal Reflux Disease; Negative Gastrointestinal Disorders, Cirrhosis, Pancreatitis, Celiac Disease, Gall Bladder Disease, Bettencourt's Esophagus, Colitis, Ulcerative Colitis, Diverticulitis, Diverticulosis, Ulcer, Irritable Bowel, Crohn's Disease, Obstructive Bowel, Hiatal Hernia, Hemorrhoids or Obesity GENITOURINARY: Negative Genitourinary Disorders or Renal Disease MUSCULOSKELETAL: Negative Musculoskeletal Disorders ENT: Negative Cataracts, Glaucoma, Blind, Retinal Detachment, Macular Degeneration, Ear Infection, Deafness or Eye Prosthesis ENDOCRINE: Negative Endocrine Disorders, Diabetes Mellitus Type 1, Diabetes Mellitus Type 2, Hypoglycemia, Awais's Syndrome, [place]'s Disease, Hyperthyroidism, Hypothyroidism, Parathyroid Disease, Pituitary Disease, Systemic Lupus Erythematosus, Syndrome of Inappropriate Antidiuretic Hormone (SIADH), Adrenal Disease or Graves' Disease HEMATOLOGIC: Positive Anemia; Negative Blood Disorders or Sickle Cell Disease PSYCHO/SOCIAL: Positive Recreational Drug Use, Depression and Anxiety OTHER HISTORY: Positive Hospitalization, Falls and Chicken Pox; Negative Autoimmune Disease, Down Syndrome, Developmental Delay, Blood Transfusions, Blood Transfusion Reaction, Anesthesia Reactions, Organ Transplant, MRSA, VRSA, Clostridium Difficile or Cancer Family History FAMILY HISTORY: Negative Family Psychiatric Problems, Family Respiratory Disorders, Family Cardiac Disorders, Family Gastrointestinal Problems, Family Cancer, Family Surgery or Family Anesthesia Reaction Surgical History SURGICAL: Negative Cardiac Surgery, Pacemaker, Endocrine Surgery, Ear Surgery, Abdominal Surgery, Nephrectomy, Joint Replacement, Neurologic Surgery, Vasectomy or Organ Transplant Social History SMOKING STATUS: Never smoker SECOND HAND EXPOSURE: No SUBSTANCE USE: methamphetamine ED Exam Narrative Physical exam: Constitutional: no acute distress, age appropriate, non-toxic Eyes: conjunctivae w/o pallor, EOMI HENT: normocephalic, atraumatic. Respiratory Effort: no stridor, effort normal, no tachypnea Skin: warm, dry; No rash. Scabs noted to both lower extremities but no erythema or discharge. MSK: Bilateral lower extremities nontender. Negative Homans' sign bilaterally and no calf tenderness. DP pulse 2+ bilateral lower extremities. Neurology: alert, oriented X 4. Normal gait Psychology: cooperative, normal mood Course Quality Measures none Orders Category Date Time Status Acetaminophen Tab [Tylenol ES Tab] Med 12/30/24 17:55 Discontinued 1,000 mg PO X1 ONE Vital Signs Vital signs: Vital Signs Temperature 98.7 F 12/30/24 17:44 Pulse Rate 103 H 12/30/24 17:44 Respiratory Rate 18 12/30/24 17:44 Blood Pressure 107/70 12/30/24 17:44 Pulse Oximetry (%) 98 12/30/24 17:44 Oxygen Delivery Method Room Air 12/30/24 17:44 Extremity Problem MDM Narrative MDM Narrative:: Patient presents with bilateral leg pain. Considered chronic pain, DVT, cellulitis Likely exacerbation of patient's chronic leg pain. Low suspicion for DVT as there is no unilateral leg swelling, negative Homans' sign, no calf tenderness. No evidence on exam of cellulitis or abscess. P.o. Tylenol given here. Counseled to follow-up with primary care. Return to ED precautions given. Patient data External records reviewed:: [facility] previous records Clinical information provided by:: patient Social determinants that could affect healthcare access:: none Patient has the following chronic illnesses:: Alcohol abuse How is presenting disease/condition affected by chronic disease/condition?: exacerbated by Evaluation data The following diagnostics were reviewed and interpreted by me:: other (specify) (N/A) Lab and/or radiology exams considered but not ordered:: Considered imaging but not indicated Interpretation Summary: N/A Medications / Prescriptions Medications or Prescriptions considered but not ordered:: N/A Medication administrations:: Medication Administration History Discontinued Medications Acetaminophen (Acetaminophen 500 Mg Tablet) 1,000 mg PO X1 ONE Stop: 12/30/24 17:56 See above Consultations Consultation(s) initiated? (list below): No Diagnosis Extremity Problem Differential Diagnosis: other (See MDM section) Most likely diagnosis given after review of the tests above:: Leg pain Admission Indicated Admission indicated?: not indicated Admission Request Was there a request for admission?: No Disposition Plan Disposition Plan: Discharge Discharge Attestation Discharge Attestation: The patient and all family members were given an opportunity to ask questions and understood the discharge instructions. Discharge instructions specifically effects, indications for sooner follow up or return to the emergency department, and the expected course of current diagnosis. Patient condition: Stable Discharge Plan Plan Patient Disposition: HOME (Self Care) Prescriptions/Referrals Prescriptions/Med Rec: No Action cyclobenzaprine 5 mg tablet 5 mg PO 3XD Patient Comments: TAKE 1 TABLET BY MOUTH NEEDED FOR MUSCLE PAIN 3 TIMES DAILY 10 DAYS midodrine 5 mg tablet 5 mg PO TID Qty: 90 0RF Rx Instructions: do not give last dose of day after 6PM or within 4 hrs of bedtime ferrous sulfate 325 mg (65 mg iron) Tablet,Delayed Release (Dr/Ec) 325 mg PO QOD Qty: 60 0RF pantoprazole 40 mg tablet,delayed release (DR/EC) 40 mg PO QDAY Qty: 60 0RF chlordiazepoxide HCl 25 mg capsule 25 mg PO TID PRN (Reason: alcohol withdrawal) Qty: 30 0RF ibuprofen 800 mg tablet 800 mg PO TID PRN (Reason: pain) Qty: 30 0RF Problem List Clinical Impression: Leg pain Patient/Caregiver Discharge Instructions Education Materials: ED Myalgias Additional Instructions: Follow-up with primary care. Return to the ED for new or worsening symptoms Print Language: Citizen Of [place] Stand Alone Forms: [employer] Award Info., Patient Portal Info Letter
[2024-12-30] MEDS: ACETAMINOPHEN 500 MG TABLET 1000 MG PO (17:59)
== END 2024-12-30 18:10 | disposition home or self-care (01) ==
LOC: SERX 18:24
PROVIDERS: Emergency Provider Emergency Medicine
DX: M79.605 Pain in left leg (principal); M79.604 Pain in right leg
CPT/HCPCS: 99281; A9270

== ENCOUNTER 2025-02-16 20:46 | Emergency (ER) | payer MEDICAID, SELFPAY ==
[2025-02-16 20:47] VITALS: BMI 28.8
[2025-02-16 20:53] VITALS: BP 126/76; PULSE 103; RESP 18; TEMP 37.2; O2SAT 95
--- NOTE | 2025-02-16 21:12 | PD.EDRME ---
Rapid Medical Screening Exam RME Arrival date/time: 02/16/25 20:46 Chief Complaint: Alcohol Time Seen by Provider: 02/16/25 20:57 Vital signs: Vital Signs Temperature 99.0 F 02/16/25 20:53 Pulse Rate 103 H 02/16/25 20:53 Respiratory Rate 18 02/16/25 20:53 Blood Pressure 126/76 02/16/25 20:53 Pulse Oximetry (%) 95 02/16/25 20:53 Oxygen Delivery Method Room Air 02/16/25 20:53
[2025-02-16 22:03] LABS: Basophils # (Auto) 0.2 Thou/mm3 (0.0-0.2); Basophils % (Auto) 2 % (0-2.5); Eosinophils # (Auto) 0.7 Thou/mm3 (0.0-0.5); Eosinophils % (Auto) 7 % (0-10); Hematocrit 24.6 % (41.0-53.0); Immature Granulocytes % (Auto) 1 % (0-0); Immature Granulocytes Auto 0.12 Thou/mm3 (0.00-0.00); Lymphocytes # (Auto) 1.3 Thou/mm3 (1.0-4.8); Lymphocytes % (Auto) 14 % (10-50); Mean Corpuscular HGB Conc 32.1 g/dl (31.0-37.0); Mean Corpuscular Hemoglobin 27.1 pg (25.0-35.0); Mean Corpuscular Volume 84 fL (80-100); Monocytes # (Auto) 0.8 Thou/mm3 (0.0-0.8); Monocytes % (Auto) 9 % (0-12); Neutrophils # (Auto) 6.3 Thou/mm3 (1.8-7.7); Neutrophils % (Auto) 68 % (37-80); Nucleated Red Blood Cell % 0 /100 WBC (0); Platelet Count 126 Thou/mm3 (140-440); RDW Standard Deviation 61.3 fL (35.1-43.9); Red Blood Count 2.92 Miln/mm3 (4.50-5.90); White Blood Count 9.3 Thou/mm3 (3.8-10.6)
[2025-02-16 22:15] LABS: Hemoglobin 7.9 g/dL (13.5-16.0)
[2025-02-16 22:28] LABS: Ammonia 29 uMol/L (11-32)
[2025-02-16 22:54] LABS: Amphetamine/Methamp Scrn,U Negative (Negative); Barbiturate Screen,Urine Negative (Negative); Benzodiazepines Screen,Urine Positive (Negative); Benzoylecgonine Screen, Ur Negative (Negative); Fentanyl Screen,Urine Negative (Negative); Opiate Screen,Urine Negative (Negative); THC Screen,Urine Negative (Negative)
[2025-02-16 22:56] LABS: Alanine Aminotransferase 22 U/L (10-49); Albumin, Serum 3.4 gm/dL (3.5-5.0); Albumin/Globulin Ratio 0.9 (1.2-2.2); Alkaline Phosphatase 277 U/L (46-116); Anion Gap 10 (7-16); Aspartate Amino Transferase 97 U/L (0-34); BUN/Creatinine Ratio 8 Ratio (12-20); Bilirubin,Total 1.6 mg/dL (0.3-1.2); Blood Urea Nitrogen < 5 mg/dL (9-23); Calcium 7.5 mg/dL (8.3-10.6); Chloride 109 mMol/L (98-107); Creatinine (Component) 0.6 mg/dL (0.6-1.3); Estimated Creatinine Clearance 158.9 mL/min (>60); Globulin 3.9 gm/dL (2.3-3.5); Glucose 117 mg/dL (74-106); Osmolality,Calculated 283 (275-295); Potassium 3.8 mMol/L (3.4-5.1); Sodium 143 mMol/L (136-145); Total Protein 7.3 gm/dL (5.7-8.2); eGFR > 60 See Note
[2025-02-16 23:11] LABS: Alcohol, Blood Medical 403.3 mg/dL (0-10.0)
--- NOTE | 2025-02-16 23:13 | PD.EDALCOH ---
ED Alcohol RME/HPI General Chief Complaint: Alcohol Stated Complaint: ALCOHOL INTOXICATION Time Seen by Provider: 02/16/25 20:57 Arrival date/time: 02/16/25 20:46 Limitations: no limitations RME / HPI RME / HPI narrative: Dr. Melgar's Main ED Evaluation: 44yo male with a history of alcohol abuse presents to the ED for a chief complaint of difficulty ambulating. Patient states he started having difficulty ambulating today. He states he fell, but does not know when or why he fell. He denies any dizziness, vision changes or any other associated symptoms. He states he did drink alcohol tonight. Related Data Home Medications ?Medication ?Instructions ?Recorded ?Confirmed cyclobenzaprine 5 mg tablet 5 mg PO 3XD 05/25/24 05/25/24 Previous Rx's ?Medication ?Instructions ?Recorded midodrine 5 mg tablet 5 mg PO TID #90 tabs 05/26/24 ferrous sulfate 325 mg (65 mg 325 mg PO QOD #60 tabs 08/11/24 iron) tablet,delayed release pantoprazole 40 mg tablet,delayed 40 mg PO QDAY #60 tabs 08/11/24 release chlordiazepoxide HCl 25 mg capsule 25 mg PO TID PRN alcohol 08/26/24 withdrawal #30 caps ibuprofen 800 mg tablet 800 mg PO TID PRN pain #30 tabs 11/24/24 Allergies Allergy/AdvReac Type Severity Reaction Status Date / Time No Known Allergies Allergy Verified 12/13/24 18:55 Review of Systems Review of Systems Systems Reviewed: All systems reviewed, normal except as documented Past Medical History Past Medical History NEUROLOGIC: Negative Neurological Disorders or Seizures CARDIAC: Positive Cardiac Disorders, Myocardial Infarction, Angina and Hypertension; Negative Cardiac Arrhythmia, Atrial Fibrillation, Heart Murmur, Coronary Artery Disease, Atherosclerotic Heart Disease, Peripheral Vascular Disease, Hypercholesterolemia, Aneurysm, Congestive Heart Failure, Congenital Heart Disease, Rheumatic Fever, Cardiomyopathy, Edema, Pericarditis, Cellulitis, Deep Vein Thrombosis, Hypotension or Varicose Veins RESPIRATORY: Negative Chronic Obstructive Pulmonary Disease (COPD) or Asthma GASTROINTESTINAL: Positive Hepatitis, Gastrointestinal Bleed, Esophageal Varices and Gastroesophageal Reflux Disease; Negative Gastrointestinal Disorders, Cirrhosis, Pancreatitis, Celiac Disease, Gall Bladder Disease, Bettencourt's Esophagus, Colitis, Ulcerative Colitis, Diverticulitis, Diverticulosis, Ulcer, Irritable Bowel, Crohn's Disease, Obstructive Bowel, Hiatal Hernia, Hemorrhoids or Obesity GENITOURINARY: Negative Genitourinary Disorders or Renal Disease MUSCULOSKELETAL: Negative Musculoskeletal Disorders ENT: Negative Cataracts, Glaucoma, Blind, Retinal Detachment, Macular Degeneration, Ear Infection, Deafness or Eye Prosthesis ENDOCRINE: Negative Endocrine Disorders, Diabetes Mellitus Type 1, Diabetes Mellitus Type 2, Hypoglycemia, Gibbs's Syndrome, [place]'s Disease, Hyperthyroidism, Hypothyroidism, Parathyroid Disease, Pituitary Disease, Systemic Lupus Erythematosus, Syndrome of Inappropriate Antidiuretic Hormone (SIADH), Adrenal Disease or Graves' Disease HEMATOLOGIC: Positive Anemia; Negative Blood Disorders or Sickle Cell Disease PSYCHO/SOCIAL: Positive Recreational Drug Use, Depression and Anxiety OTHER HISTORY: Positive Hospitalization, Falls and Chicken Pox; Negative Autoimmune Disease, Down Syndrome, Developmental Delay, Blood Transfusions, Blood Transfusion Reaction, Anesthesia Reactions, Organ Transplant, MRSA, VRSA, Clostridium Difficile or Cancer Family History FAMILY HISTORY: Negative Family Psychiatric Problems, Family Respiratory Disorders, Family Cardiac Disorders, Family Gastrointestinal Problems, Family Cancer, Family Surgery or Family Anesthesia Reaction Surgical History SURGICAL: Negative Cardiac Surgery, Pacemaker, Endocrine Surgery, Ear Surgery, Abdominal Surgery, Nephrectomy, Joint Replacement, Neurologic Surgery, Vasectomy or Organ Transplant Social History SMOKING STATUS: Never smoker SECOND HAND EXPOSURE: No SUBSTANCE USE: methamphetamine ED Exam General Limitations: Present no limitations General appearance: Present alert and in no apparent distress; Absent other (altered) Head Head exam: Present atraumatic Eye Eye exam: Present normal appearance, PERRL and EOMI; Absent other (ocular motor dysfunction) ENT ENT exam: Present normal exam, normal oropharynx and mucous membranes moist Neck Neck exam: Present normal inspection, full ROM and trachea midline Chest Chest inspection: Present normal inspection and symmetric chest wall rise Respiratory Respiratory exam: Present normal lung sounds bilaterally Cardiovascular Cardiovascular exam: Present regular rate, normal rhythm and normal heart sounds Abdominal Exam Abdominal exam: Present soft and normal bowel sounds Extremities Exam Extremities exam: Present normal inspection and full ROM Back Exam Back exam: Present normal inspection and full ROM Neurological Exam Neurological exam: Present alert, oriented X3, CN II-XII intact and other (able to stand without assistance, but cannot take a step) Psychiatric Psychiatric exam: Present normal affect and normal mood Skin Skin exam: Present warm, dry, intact and normal color Course Quality Measures none Orders Category Date Time Status CT head/brain wo con Stat Exams 02/17/25 00:01 Taken Alcohol, Blood Medical Stat Lab 02/16/25 21:37 Completed Ammonia Stat Lab 02/16/25 21:37 Completed CBC Stat Lab 02/16/25 21:37 Completed CMP [Comprehensive Metabolic Panel] Stat Lab 02/16/25 21:37 Completed Drug Screen,Urine Stat Lab 02/16/25 22:19 Completed Folic Acid Inj Med 02/16/25 21:16 Discontinued 1 mg IVP X1 ONE Magnesium Sulfate 2 GM Ivpb [Magnesium Sulfate Ivpb] Med 02/16/25 21:16 Discontinued 2 gm in 50 ml IV X1 Multivitamin Inj [Infuvite Inj] Med 02/16/25 22:55 Discontinued 10 ml IV X1 ONE Sodium Chloride 0.9% 1000 ml [Ns] 1,000 ml Med 02/16/25 21:23 Discontinued IV 999 mls/hr Thiamine Inj [Vitamin B-1 Inj] Med 02/16/25 21:16 Discontinued 100 mg IVP X1 ONE Vital Signs Vital signs: Vital Signs Temperature 99.0 F 02/16/25 20:53 Pulse Rate 103 H 02/16/25 20:53 Respiratory Rate 18 02/16/25 20:53 Blood Pressure 126/76 02/16/25 20:53 Pulse Oximetry (%) 95 02/16/25 20:53 Oxygen Delivery Method Room Air 02/16/25 20:53 Discharge Plan Prescriptions/Referrals Prescriptions/Med Rec: No Action cyclobenzaprine 5 mg tablet 5 mg PO 3XD Patient Comments: TAKE 1 TABLET BY MOUTH NEEDED FOR MUSCLE PAIN 3 TIMES DAILY 10 DAYS midodrine 5 mg tablet 5 mg PO TID Qty: 90 0RF Rx Instructions: do not give last dose of day after 6PM or within 4 hrs of bedtime ferrous sulfate 325 mg (65 mg iron) Tablet,Delayed Release (Dr/Ec) 325 mg PO QOD Qty: 60 0RF pantoprazole 40 mg tablet,delayed release (DR/EC) 40 mg PO QDAY Qty: 60 0RF chlordiazepoxide HCl 25 mg capsule 25 mg PO TID PRN (Reason: alcohol withdrawal) Qty: 30 0RF ibuprofen 800 mg tablet 800 mg PO TID PRN (Reason: pain) Qty: 30 0RF Referrals: No Primary/Family,Physician [Primary Care Provider] - In 1 week Problem List Clinical Impression: Alcohol intoxication Patient/Caregiver Discharge Instructions Print Language: Urdu Alcohol MDM Narrative MDM Narrative: Scribe Attestation: 02/16/25 - yN Landers am scribing for and in the presence of Dr. Melgar. Patient data External records reviewed:: [facility] previous records (Per chart review, patient was seen here on 12/30/24 for leg pain.) Clinical information provided by:: patient and other (specify) Social determinants that could affect healthcare access:: alcohol use Patient has the following chronic illnesses:: HTN How is presenting disease/condition affected by chronic disease/condition?: uneffected by Evaluation data The following diagnostics were reviewed and interpreted by me:: lab results and radiology exam(s) Lab and/or radiology exams considered but not ordered:: none Interpretation Summary: WBC count is normal, HnH is 7.9/243.6, UDS is positive for benzodiazepines, Blood Alcohol is elevated at 403.3, according to my interpretation. [employer] Preliminary Report Draft Patient: KOLBY RON. Record#: [id number] Birthdate: 1980 Age/Sex: 44 / M Location: [facility] Attending Dr: Ordering Physician: Date of Service: Procedure(s): Accession Number(s): cc: ~ CT scan of the head without intravenous contrast (axial sections with sagittal and coronal reformats). February 17, 2025 at 0041 hours Clinical History: Abnormal gait. Comparison: No prior study is available for comparison. Findings: No evidence of intracranial hemorrhage, mass effect or midline shift. The ventricles and CSF spaces are unremarkable. The calvarium is unremarkable. Moderate brain atrophy, more than expected for age. The mastoid air cells are clear. The right maxillary sinus is filled with mucus. Bilateral basal ganglia calcifications. Impression: 1. No evidence of intracranial hemorrhage, mass effect or midline shift. 2. Severe right maxillary sinusitis. 3. Moderate brain atrophy, more than expected for age. Further evaluation and neurology consult are recommended. Report Electronically Signed By: Laci Ha 02/17/2025 1:30:11 AM Medications / Prescriptions Medications or Prescriptions considered but not ordered:: none Medication administrations:: Medication Administration History Discontinued Medications Folic Acid (Folic Acid Inj 1 Mg/0.2 Ml) 1 mg IVP X1 ONE Stop: 02/16/25 21:17 Last Admin: 02/16/25 23:24 Dose: 1 mg Documented By: EE Magnesium Sulfate (Magnesium Sulfate Ivpb) 2 gm in 50 mls @ 25 mls/hr IV X1 ONE Stop: 02/16/25 23:15 Last Infusion: 02/17/25 01:40 Dose: Infused Documented By: Admin: 02/16/25 23:38 Dose: 25 mls/hr Documented By: EE Sodium Chloride (Ns) 1,000 mls @ 999 mls/hr IV .Q1H1M ONE Stop: 02/16/25 22:23 Last Infusion: 02/17/25 00:25 Dose: Infused Documented By: Admin: 02/16/25 23:26 Dose: 999 mls/hr Documented By: EE Multivitamins/Minerals (Multivitamin Inj 10 Ml Vial) 10 ml IV X1 ONE Stop: 02/16/25 22:56 Last Admin: 02/16/25 23:26 Dose: 10 ml Documented By: EE Thiamine HCl (Thiamine Inj 100 Mg/Ml Vial 2 Ml) 100 mg IVP X1 ONE Stop: 02/16/25 21:17 Last Admin: 02/16/25 23:25 Dose: 100 mg Documented By: EE see above Consultations Consultation(s) initiated? (list below): No Diagnosis Differential diagnosis alcohol: alcohol intoxication and other (Wernicke's syndrome, dehydration, electrolyte abnormality) Most likely diagnosis given after review of the tests above:: see clinical impression below Admission Indicated Admission indicated?: not indicated Admission Request Was there a request for admission?: No Disposition Plan Disposition Plan: other (specify) (Signed out to Dr. Gonzalez at 0600 pending MTF.)
[2025-02-16] MEDS: FOLIC ACID INJ 1 MG/0.2 ML IVP (23:24)
[2025-02-16] MEDS: THIAMINE INJ 100 MG/ML VIAL 2 ML IVP (23:25)
[2025-02-16] MEDS: SODIUM CHLORIDE 0.9% 1000 ML 1,000 ML 999 ML IV (23:26)
[2025-02-16 23:33] VITALS: BP 105/80; PULSE 100; RESP 18; TEMP 36.7; O2SAT 97
[2025-02-16] MEDS: Magnesium Sulfate 2 GM Ivpb 2 GM/50 ML BAG IV (23:38)
--- NOTE | 2025-02-17 00:01 | XR_ITS ---
Examination: CT brain head without contrast. 2-D sagittal coronal reconstructions Date and time of exam:February 17, 2025 0041 hrs. Comparison November 28, 2024 Indications: Altered mental status abnormal gait today, alcohol intoxication CTDI: vol (mGy):49.2 DLP: (mGycm):949 Technique: Multiple CT axial sections of the brain have been obtained, 5 mm slice thickness. Contrast has not been administered. 2-D sagittal, coronal reconstructions have been obtained Low dose protocols were performed. One or more of the following dose reduction techniques were used; automated exposure control, adjustment of the mA and/or KV according to patient size, use of iterative reconstruction technique. Findings: No significant ventricular enlargement. Intra-axial or extra-axial hemorrhage density is not seen. No mass effect or midline shift Basal cisterns are not remarkable. Fourth ventricle is midline. Cranial vault intact. Prominent right maxillary sinusitis Moderate ethmoid chronic sinusitis Impression: Negative for acute hemorrhage, mass effect or midline shift Advise clinical correlation and follow-up accordingly
--- NOTE | 2025-02-17 01:30 | PRELIM_ITS ---
CT scan of the head without intravenous contrast (axial sections with sagittal and coronal reformats). February 17, 2025 at 0041 hours Clinical History: Abnormal gait. Comparison: No prior study is available for comparison. Findings: No evidence of intracranial hemorrhage, mass effect or midline shift. The ventricles and CSF spaces are unremarkable. The calvarium is unremarkable. Moderate brain atrophy, more than expected for age. The mastoid air cells are clear. The right maxillary sinus is filled with mucus. Bilateral basal ganglia calcifications. Impression: 1. No evidence of intracranial hemorrhage, mass effect or midline shift. 2. Severe right maxillary sinusitis. 3. Moderate brain atrophy, more than expected for age. Further evaluation and neurology consult are recommended. Report Electronically Signed By: Laci Ha 02/17/2025 1:30:11 AM [EST]
[2025-02-17 02:00] VITALS: BP 105/62; PULSE 96; RESP 18; TEMP 36.6; O2SAT 96
[2025-02-17 05:00] VITALS: BP 108/67; PULSE 93; RESP 19; O2SAT 93
--- NOTE | 2025-02-17 05:00 | PC.NURSE ---
Pt resting with eyes closed. Respirations are even and unlabored. No s/s of acute distress noted. Call light within reach, plan of care ongoing.
--- NOTE | 2025-02-17 06:18 | EDNOTE_ITS ---
Emergency Room Addendum <Claudine Villegas - Last Filed: 02/17/25 08:29> Addendum Narrative: 0600: Care assumed from Dr. Caro, the previous shift emergency physician. Past medical, surgical, social and family history reviewed. Vitals and home medications reviewed. I will assume the care of the patient at this time, pending pending MTF. Please refer to the emergency department record for history and examination from initial visit.? Physical exam by me shows patient under no acute distress at this time. RADIOLOGY Procedure(s): CT head/brain wo con Accession Number(s): [id number] cc: Zach Masters MD; NO PRIMARY/FAMILY,PHYSICIAN; Raisa Caro MD~ Examination: CT brain head without contrast. 2-D sagittal coronal reconstructions Date and time of exam:February 17, 2025 0041 hrs. Comparison November 28, 2024 Indications: Altered mental status abnormal gait today, alcohol intoxication CTDI: vol (mGy):49.2 DLP: (mGycm):949 Technique: Multiple CT axial sections of the brain have been obtained, 5 mm slice thickness. Contrast has not been administered. 2-D sagittal, coronal reconstructions have been obtained Low dose protocols were performed. One or more of the following dose reduction techniques were used; automated exposure control, adjustment of the mA and/or KV according to patient size, use of iterative reconstruction technique. Findings: No significant ventricular enlargement. Intra-axial or extra-axial hemorrhage density is not seen. No mass effect or midline shift Basal cisterns are not remarkable. Fourth ventricle is midline. Cranial vault intact. Prominent right maxillary sinusitis Moderate ethmoid chronic sinusitis Impression: Negative for acute hemorrhage, mass effect or midline shift Advise clinical correlation and follow-up accordingly Dictated By: Zach Masters MD <Cody Gonzalez MD - Last Filed: 02/17/25 11:08> Addendum Narrative: 0600: Care assumed from Dr. Caro, the previous shift emergency physician. Past medical, surgical, social and family history reviewed. Vitals and home medications reviewed. I will assume the care of the patient at this time, pending pending MTF. Please refer to the emergency department record for history and examination from initial visit.? He is aware and is walking safely and waiting for a ride to discharge him home. Been advised not to drive or operate any equipment Patient was reevaluated by myself this morning he was comfortable and around 10: 00 he feels better he has been up walking to the bathroom. He got up and ambulated the halls without any difficulty. His vital signs are normal and his heart rates around 98-100. He states he can go home and drink a beer to control his tremulousness. He was advised that he should stop drinking and come back if he is having withdrawal. He does not appear to have too much interest in doing that. But he is aware he is Physical exam by me shows patient under no acute distress at this time. RADIOLOGY Procedure(s): CT head/brain wo con Accession Number(s): [id number] cc: Zach Masters MD; NO PRIMARY/FAMILY,PHYSICIAN; Raisa Caro MD~ Examination: CT brain head without contrast. 2-D sagittal coronal reconstructions Date and time of exam:February 17, 2025 0041 hrs. Comparison November 28, 2024 Indications: Altered mental status abnormal gait today, alcohol intoxication CTDI: vol (mGy):49.2 DLP: (mGycm):949 Technique: Multiple CT axial sections of the brain have been obtained, 5 mm slice thickness. Contrast has not been administered. 2-D sagittal, coronal reconstructions have been obtained Low dose protocols were performed. One or more of the following dose reduction techniques were used; automated exposure control, adjustment of the mA and/or KV according to patient size, use of iterative reconstruction technique. Findings: No significant ventricular enlargement. Intra-axial or extra-axial hemorrhage density is not seen. No mass effect or midline shift Basal cisterns are not remarkable. Fourth ventricle is midline. Cranial vault intact. Prominent right maxillary sinusitis Moderate ethmoid chronic sinusitis Impression: Negative for acute hemorrhage, mass effect or midline shift Advise clinical correlation and follow-up accordingly Dictated By: Zach Masters MD
[2025-02-17 06:40] VITALS: BP 110/76; PULSE 93; RESP 16; TEMP 36.7; O2SAT 94
[2025-02-17 07:36] VITALS: BP 111/74; PULSE 94; RESP 12; TEMP 36.9; O2SAT 98
--- NOTE | 2025-02-17 07:39 | PC.NURSE ---
Patient awoke with states feels better and feels able to ambulate, requesting to get up to use bathroom, patient ambulate w/o assistance to bathroom.
[2025-02-17 10:17] VITALS: BP 141/90; PULSE 99; RESP 18; TEMP 36.7; O2SAT 100
--- NOTE | 2025-02-17 10:20 | PC.NURSE ---
Patient ambulated in ED around nurses station x1, patient denies dizziness, tremors, and states feels good and wants to discharge home.
--- NOTE | 2025-02-17 10:22 | PC.NURSE ---
Provided patient with sandwich, chips and drink.
[2025-02-17 11:31] VITALS: BP 114/84; PULSE 116; RESP 19; TEMP 36.7; O2SAT 99
== END 2025-02-17 11:34 | disposition home or self-care (01) ==
PROVIDERS: Physician Assistant; Emergency Provider Emergency Medicine
DX: F10.129 Alcohol abuse with intoxication, unspecified (principal)
CPT/HCPCS: 36415; 70450; 80053; 80307; 80320; 82140; 85025; 96365; 96375; 99284; J3411; J3475; J3490; J7030; G0480

== ENCOUNTER 2025-03-01 18:42 | Emergency (ER) | payer MEDICAID, SELFPAY ==
[2025-03-01 18:48] VITALS: PULSE 102; O2SAT 98
[2025-03-01 19:02] VITALS: BP 123/62; PULSE 105; RESP 20; TEMP 37.1; O2SAT 100
--- NOTE | 2025-03-01 19:12 | PD.EDALCOH ---
ED Alcohol RME/HPI General Chief Complaint: General Adult/Misc Complain Stated Complaint: PAIN AND WEAKNESS Time Seen by Provider: 03/01/25 19:03 Source: patient, EMS and RN notes reviewed Arrival date/time: 03/01/25 18:42 Mode of arrival: EMS Limitations: no limitations RME / HPI RME / HPI narrative: 44-year-old male presents to ED with complaint of not being able to ambulate, shaking hands, consuming alcohol earlier this morning. Related Data Home Medications ?Medication ?Instructions ?Recorded ?Confirmed cyclobenzaprine 5 mg tablet 5 mg PO 3XD 05/25/24 05/25/24 Previous Rx's ?Medication ?Instructions ?Recorded midodrine 5 mg tablet 5 mg PO TID #90 tabs 05/26/24 ferrous sulfate 325 mg (65 mg 325 mg PO QOD #60 tabs 08/11/24 iron) tablet,delayed release pantoprazole 40 mg tablet,delayed 40 mg PO QDAY #60 tabs 08/11/24 release chlordiazepoxide HCl 25 mg capsule 25 mg PO TID PRN alcohol 08/26/24 withdrawal #30 caps ibuprofen 800 mg tablet 800 mg PO TID PRN pain #30 tabs 11/24/24 Allergies Allergy/AdvReac Type Severity Reaction Status Date / Time No Known Allergies Allergy Verified 03/01/25 18:47 ED Exam General Limitations: Present no limitations Course Orders Category Date Time Status Insert IV STAT Care 03/01/25 19:08 Active Alcohol, Urine Stat Lab 03/01/25 20:11 Received CBC Stat Lab 03/01/25 19:17 Completed Comprehensive Metabolic Panel Stat Lab 03/01/25 19:17 Completed Lipase Stat Lab 03/01/25 19:17 Completed Urinalysis Stat Lab 03/01/25 20:11 Received Vital Signs Vital signs: Vital Signs Temperature 98.7 F 03/01/25 19:02 Pulse Rate 105 H 03/01/25 19:02 Respiratory Rate 20 03/01/25 19:02 Blood Pressure 123/62 03/01/25 19:02 Pulse Oximetry (%) 100 03/01/25 19:02 Oxygen Delivery Method Room Air 03/01/25 19:02 Discharge Plan Prescriptions/Referrals Prescriptions/Med Rec: No Action cyclobenzaprine 5 mg tablet 5 mg PO 3XD Patient Comments: TAKE 1 TABLET BY MOUTH NEEDED FOR MUSCLE PAIN 3 TIMES DAILY 10 DAYS midodrine 5 mg tablet 5 mg PO TID Qty: 90 0RF Rx Instructions: do not give last dose of day after 6PM or within 4 hrs of bedtime ferrous sulfate 325 mg (65 mg iron) Tablet,Delayed Release (Dr/Ec) 325 mg PO QOD Qty: 60 0RF pantoprazole 40 mg tablet,delayed release (DR/EC) 40 mg PO QDAY Qty: 60 0RF chlordiazepoxide HCl 25 mg capsule 25 mg PO TID PRN (Reason: alcohol withdrawal) Qty: 30 0RF ibuprofen 800 mg tablet 800 mg PO TID PRN (Reason: pain) Qty: 30 0RF Referrals: Cezar Adams MD [Primary Care Provider] - In 1 week Patient/Caregiver Discharge Instructions Print Language: Persian
[2025-03-01 19:27] LABS: Basophils % (Auto) 1 % (0-2.5); Eosinophils # (Auto) 0.3 Thou/mm3 (0.0-0.5); Eosinophils % (Auto) 5 % (0-10); Hematocrit 22.6 % (41.0-53.0); Hemoglobin 7.2 g/dL (13.5-16.0); Immature Granulocytes % (Auto) 1 % (0-0); Immature Granulocytes Auto 0.03 Thou/mm3 (0.00-0.00); Lymphocytes # (Auto) 1.2 Thou/mm3 (1.0-4.8); Lymphocytes % (Auto) 19 % (10-50); Mean Corpuscular HGB Conc 31.9 g/dl (31.0-37.0); Mean Corpuscular Hemoglobin 26.9 pg (25.0-35.0); Mean Corpuscular Volume 84 fL (80-100); Monocytes # (Auto) 0.5 Thou/mm3 (0.0-0.8); Monocytes % (Auto) 8 % (0-12); Neutrophils # (Auto) 4.2 Thou/mm3 (1.8-7.7); Neutrophils % (Auto) 66 % (37-80); Nucleated Red Blood Cell % 0 /100 WBC (0); Platelet Count 42 Thou/mm3 (140-440); RDW Standard Deviation 63.7 fL (35.1-43.9); Red Blood Count 2.68 Miln/mm3 (4.50-5.90); White Blood Count 6.3 Thou/mm3 (3.8-10.6)
[2025-03-01 19:30] LABS: Slide Review Platelets confirmed
[2025-03-01 19:59] LABS: Alanine Aminotransferase 16 U/L (10-49); Albumin, Serum 3.5 gm/dL (3.5-5.0); Albumin/Globulin Ratio 0.9 (1.2-2.2); Alkaline Phosphatase 265 U/L (46-116); Anion Gap 9 (7-16); Aspartate Amino Transferase 78 U/L (0-34); BUN/Creatinine Ratio 6 Ratio (12-20); Bilirubin,Total 1.4 mg/dL (0.3-1.2); Blood Urea Nitrogen < 5 mg/dL (9-23); Calcium 7.8 mg/dL (8.3-10.6); Calcium (Corrected) 8.2 mg/dL (8.5-10.1); Carbon Dioxide 24.8 mMol/L (20.0-31.0); Chloride 107 mMol/L (98-107); Creatinine (Component) 0.8 mg/dL (0.6-1.3); Glucose 126 mg/dL (74-106); Lipase 46 U/L (12-53); Osmolality,Calculated 280 (275-295); Potassium 3.4 mMol/L (3.4-5.1); Sodium 141 mMol/L (136-145); Total Protein 7.5 gm/dL (5.7-8.2); eGFR > 60 See Note
[2025-03-01 20:16] LABS: Collection Type, Urine Clean Catch; Squamous Epithelial Cell,Urine 0 /hpf (0-5)
[2025-03-01 20:21] LABS: Bilirubin,Urine Negative (Negative); Blood,Urine Negative (Negative); Clarity,Urine Clear (Clear/Hazy); Color,Urine Lt-Yellow (Lt Yel-Yel); Glucose, Urine Negative (Negative); Ketones,Urine Negative (Negative); Leukocyte Esterase,Urine Negative (Negative); Nitrite,Urine Negative (Negative); PH,Urine 6.5 (5.0-7.0); Protein,Urine Negative (Neg - Trace); RBC,Urine 1 /hpf (0-3); Specific Gravity,Urine 1.008 (1.001-1.035); WBC,Urine 1 /hpf (0-5)
--- NOTE | 2025-03-01 20:28 | PD.EDALCOH ---
ED Alcohol RME/HPI General Chief Complaint: General Adult/Misc Complain Stated Complaint: PAIN AND WEAKNESS Time Seen by Provider: 03/01/25 19:03 Source: patient, EMS and RN notes reviewed Arrival date/time: 03/01/25 18:42 Mode of arrival: EMS Limitations: no limitations RME / HPI RME / HPI narrative: DR. CARO MAIN ED EVALUATION: 44 year old male with past medical history significant for alcohol abuse presents to the Emergency Department BIB with complaint of baseline tremors, shaky hands. He states he has trouble ambulating from shakiness and alcohol consumption earlier this morning. Associated symptoms include nausea. Here in the emergency department the patient otherwise has slight tachycardia to 105 but on repeat his heart rate is 98. Patient denies any other associated symptoms. Patient also complained of left leg pain. Pain is describes as aching and mild to moderate in severity. PMH: Alcoholism PSH: None Social history: Alcohol abuse Related Data Home Medications ?Medication ?Instructions ?Recorded ?Confirmed cyclobenzaprine 5 mg tablet 5 mg PO 3XD 05/25/24 05/25/24 Previous Rx's ?Medication ?Instructions ?Recorded midodrine 5 mg tablet 5 mg PO TID #90 tabs 05/26/24 ferrous sulfate 325 mg (65 mg 325 mg PO QOD #60 tabs 08/11/24 iron) tablet,delayed release pantoprazole 40 mg tablet,delayed 40 mg PO QDAY #60 tabs 08/11/24 release chlordiazepoxide HCl 25 mg capsule 25 mg PO TID PRN alcohol 08/26/24 withdrawal #30 caps ibuprofen 800 mg tablet 800 mg PO TID PRN pain #30 tabs 11/24/24 Allergies Allergy/AdvReac Type Severity Reaction Status Date / Time No Known Allergies Allergy Verified 03/01/25 18:47 Review of Systems Review of Systems Systems Reviewed: All systems reviewed, normal except as documented Narrative Review of Systems: GEN: No fever, no chills, no weight loss EYES: No discharge, no visual changes, no pain HEENT: No ear pain, no congestion, no sore throat PULM: No shortness of breath, no cough, no congestion CV: No chest pain, no dyspnea on exertion, no palpitations GI: + nausea, no vomiting, no diarrhea, no pain, no constipation : No frequency, no urgency and no dysuria MUSC/SKEL: + left leg pain, no back pain SKIN: No rash PSYCH: No hallucinations, no depression HEME/LYMPH: No easy bleeding or bruising tendencies NEURO: No weakness, no headache, + baseline tremors (see HPI) Past Medical History Past Medical History CARDIAC: Positive Cardiac Disorders, Myocardial Infarction, Angina and Hypertension GASTROINTESTINAL: Positive Hepatitis, Gastrointestinal Bleed, Esophageal Varices and Gastroesophageal Reflux Disease HEMATOLOGIC: Positive Anemia PSYCHO/SOCIAL: Positive Recreational Drug Use, Depression and Anxiety OTHER HISTORY: Positive Hospitalization, Falls and Chicken Pox Family History FAMILY HISTORY: Negative Family Psychiatric Problems, Family Respiratory Disorders, Family Cardiac Disorders, Family Gastrointestinal Problems, Family Cancer, Family Surgery or Family Anesthesia Reaction Surgical History SURGICAL: Negative Cardiac Surgery, Pacemaker, Endocrine Surgery, Ear Surgery, Abdominal Surgery, Nephrectomy, Joint Replacement, Neurologic Surgery or Vasectomy Social History SMOKING STATUS: Never smoker SECOND HAND EXPOSURE: No SUBSTANCE USE: methamphetamine ALCOHOL: Current ED Exam General Limitations: Present no limitations General appearance: Present alert, in no apparent distress and other (tremulous) Head Head exam: Present atraumatic, normocephalic and normal inspection Eye Eye exam: Present normal appearance, PERRL and EOMI ENT ENT exam: Present normal exam, normal oropharynx and mucous membranes moist Neck Neck exam: Present normal inspection, full ROM and trachea midline Chest Chest inspection: Present normal inspection and symmetric chest wall rise Respiratory Respiratory exam: Present normal lung sounds bilaterally Cardiovascular Cardiovascular exam: Present regular rate, normal rhythm and normal heart sounds Abdominal Exam Abdominal exam: Present soft and normal bowel sounds Extremities Exam Extremities exam: Present normal inspection and full ROM Back Exam Back exam: Present normal inspection and full ROM Neurological Exam Neurological exam: Present alert, oriented X3 and CN II-XII intact Psychiatric Psychiatric exam: Present normal affect and normal mood Skin Skin exam: Present warm, dry, intact and normal color Course Quality Measures none Orders Category Date Time Status Insert IV STAT Care 03/01/25 19:08 Completed US venous doppler LE BI Stat Exams 03/01/25 20:31 Completed Alcohol, Urine Stat Lab 03/01/25 20:11 Completed CBC Stat Lab 03/01/25 19:17 Completed Comprehensive Metabolic Panel Stat Lab 03/01/25 19:17 Completed Lipase Stat Lab 03/01/25 19:17 [address] Review Blood Smear Stat Lab 03/01/25 19:17 Completed Urinalysis Stat Lab 03/01/25 20:11 Completed LORazepam [Ativan] Med 03/01/25 20:31 Discontinued 2 mg PO X1 ONE Vital Signs Vital signs: Vital Signs Temperature 98.7 F 03/01/25 19:02 Pulse Rate 105 H 03/01/25 19:02 Respiratory Rate 20 03/01/25 19:02 Blood Pressure 123/62 03/01/25 19:02 Pulse Oximetry (%) 100 03/01/25 19:02 Oxygen Delivery Method Room Air 03/01/25 19:02 Discharge Plan Plan Patient Disposition: HOME (Self Care) Patient condition on transfer: Stable Prescriptions/Referrals Prescriptions/Med Rec: No Action cyclobenzaprine 5 mg tablet 5 mg PO 3XD Patient Comments: TAKE 1 TABLET BY MOUTH NEEDED FOR MUSCLE PAIN 3 TIMES DAILY 10 DAYS midodrine 5 mg tablet 5 mg PO TID Qty: 90 0RF Rx Instructions: do not give last dose of day after 6PM or within 4 hrs of bedtime ferrous sulfate 325 mg (65 mg iron) Tablet,Delayed Release (Dr/Ec) 325 mg PO QOD Qty: 60 0RF pantoprazole 40 mg tablet,delayed release (DR/EC) 40 mg PO QDAY Qty: 60 0RF chlordiazepoxide HCl 25 mg capsule 25 mg PO TID PRN (Reason: alcohol withdrawal) Qty: 30 0RF ibuprofen 800 mg tablet 800 mg PO TID PRN (Reason: pain) Qty: 30 0RF Referrals: Cezar Adams MD [Primary Care Provider] - In 1 week Problem List Clinical Impression: Alcohol use disorder Patient/Caregiver Discharge Instructions Education Materials: Social Drinking vs Problem Drinking Additional Instructions: DISCHARGE INSTRUCTIONS Even though you have been discharged from the Emergency Department, there are several things that you should do to ensure that you receive proper care: 1. DO READ your discharge instructions as these contain important information concerning your medical care. 2. If medication has been prescribed for your condition, fill the prescription as soon as possible and follow the directions on the medication. 3. RETURN AT ONCE TO THE EMERGENCY DEPARTMENT if you have any problems or concerns. These include but are not limited to fever, worsening pain(belly, chest, head, etc?), worsening shortness of breath, uncontrollable bleeding, inability to tolerate food and water, or any condition that makes you question your well-being. Also, if your symptoms do not improve in the next 12-24 hours, return to the ER or seek medical care immediately. 4. Be sure to follow up with your regular physician or specialist as instructed at discharge as this is the best way to ensure that you receive the very best of care. If you do not have a primary care physician, please contact a physician group and make an appointment. 5. Please visit [employer] for coupons regarding your prescriptions. It is a free service for you to use and can help reduce the cost of your medication. We would like to thank you for coming today and our hope is that we served you and your family well during your stay Print Language: Urdu Stand Alone Forms: [employer] Info., Patient Portal Info Letter Alcohol MDM Narrative MDM Narrative: 44-year-old male well-known to our system coming in with daily alcohol use and baseline tremors. Here in the emergency department the patient otherwise has slight tachycardia to 105 but on repeat his heart rate is 98. Patient had a venous Doppler as well because he was complaining of left leg swelling. There is no evidence of DVT. The patient was treated with 1 dose of Ativan and at this time feels comfortable going home. The patient is not in alcohol withdrawal and not having active seizures,. His blood pressure is stable. Patient data External records reviewed:: EMS form Clinical information provided by:: patient and EMS Social determinants that could affect healthcare access:: alcohol use Patient has the following chronic illnesses:: PMH: Alcoholism PSH: None Social history: Alcohol abuse How is presenting disease/condition affected by chronic disease/condition?: exacerbated by Evaluation data The following diagnostics were reviewed and interpreted by me:: lab results and radiology exam(s) Lab and/or radiology exams considered but not ordered:: none Interpretation Summary: Procedure(s): US venous doppler LE Accession Number(s): [id number] cc: Cezar Adams MD; Zach Masters MD; Raisa Caro MD~ Examination: Venous duplex lower extremity sonogram, bilateral. Date and time of exam: March 01, 2025 1015 hours INDICATIONS: Bilateral leg swelling and pain beginning one week ago Technique: Multiple sonographic images of the deep venous system have been obtained. B-mode/2-D grayscale imaging of vascular structures and Doppler spectral analysis (waveforms) and color performed Both legs are examined. Findings: Deep venous systems do not demonstrate abnormal echogenicity. All visualized deep veins exhibit compressibility. All visualized deep veins exhibit augmentation. Impression: Negative for deep vein thrombosis Dictated By: Zach Masters MD Medications / Prescriptions Medications or Prescriptions considered but not ordered:: none Medication administrations:: Medication Administration History Discontinued Medications Lorazepam (Lorazepam 0.5 Mg Tablet) 2 mg PO X1 ONE Stop: 03/01/25 20:32 Last Admin: 03/01/25 20:49 Dose: 2 mg Documented By: CVL see above Consultations Consultation(s) initiated? (list below): No Diagnosis Differential diagnosis alcohol: hypomagnesemia, alcohol intoxication, alcohol withdrawal syndrome and alcohol withdrawal seizure Most likely diagnosis given after review of the tests above:: Alcohol abuse Admission Indicated Admission indicated?: not indicated Admission Request Was there a request for admission?: No Disposition Plan Disposition Plan: Discharge Discharge Attestation Discharge Attestation: The patient and all family members were given an opportunity to ask questions and understood the discharge instructions. Discharge instructions specifically effects, indications for sooner follow up or return to the emergency department, and the expected course of current diagnosis. Patient condition: Stable
--- NOTE | 2025-03-01 20:31 | XR_ITS ---
Examination: Venous duplex lower extremity sonogram, bilateral. Date and time of exam: March 01, 2025 1015 hours INDICATIONS: Bilateral leg swelling and pain beginning one week ago Technique: Multiple sonographic images of the deep venous system have been obtained. B-mode/2-D grayscale imaging of vascular structures and Doppler spectral analysis (waveforms) and color performed Both legs are examined. Findings: Deep venous systems do not demonstrate abnormal echogenicity. All visualized deep veins exhibit compressibility. All visualized deep veins exhibit augmentation. Impression: Negative for deep vein thrombosis
[2025-03-01 20:38] LABS: Alcohol, Urine Positive (Negative)
[2025-03-01] MEDS: LORazepam 0.5 MG TABLET 2 MG PO (20:49)
[2025-03-02 00:10] VITALS: BP 145/77; PULSE 98; RESP 18; TEMP 36.7; O2SAT 99
[2025-03-02 06:08] LABS: Path Review Blood Smear Sent to Pathologist
== END 2025-03-02 00:23 | disposition home or self-care (01) ==
PROVIDERS: Physician Assistant; Emergency Provider Emergency Medicine; PCP Family Medicine
DX: F10.10 Alcohol abuse, uncomplicated (principal); M79.605 Pain in left leg; R00.0 Tachycardia, unspecified
CPT/HCPCS: 36415; 80053; 80320; 81001; 83690; 85025; 93970; 99284; A9270; G0480

== ENCOUNTER 2025-03-03 19:33 | Emergency (ER) | payer MEDICAID, SELFPAY ==
[2025-03-03 19:33] VITALS: PULSE 93; RESP 18; O2SAT 97
[2025-03-03 20:19] VITALS: BP 114/71; PULSE 85; RESP 18; TEMP 36.7; O2SAT 98
[2025-03-03 20:22] VITALS: BMI 27.4
--- NOTE | 2025-03-03 20:35 | PD.EDRME ---
Rapid Medical Screening Exam RME Arrival date/time: 03/03/25 19:33 This is a 44-year-old male that comes in with complaints of alcohol intoxication. Patient also complains of abdominal pain and blood in his stool. Patient was recently seen for 27 hemoglobin at that time was 7.2. Patient states he had 3 tall cans of beer prior to coming to the emergency room. Patient has a history of alcoholism. I have greeted and performed a focused initial assessment of this patient. Initial appropriate labs ordered at this time. A comprehensive ED assessment and evaluation of the patient and analysis of all test and completion of medical decision making process will be conducted by additional ED provider. Chief Complaint: General Adult/Misc Complain Time Seen by Provider: 03/03/25 20:03 Vital signs: Vital Signs Temperature 98.0 F 03/03/25 20:19 Pulse Rate 85 03/03/25 20:19 Respiratory Rate 18 03/03/25 20:19 Blood Pressure 114/71 03/03/25 20:19 Pulse Oximetry (%) 98 03/03/25 20:19 Oxygen Delivery Method Room Air 03/03/25 20:19
[2025-03-03 21:05] LABS: Basophils # (Auto) 0.1 Thou/mm3 (0.0-0.2); Basophils % (Auto) 1 % (0-2.5); Eosinophils # (Auto) 0.4 Thou/mm3 (0.0-0.5); Eosinophils % (Auto) 7 % (0-10); Hematocrit 23.4 % (41.0-53.0); Immature Granulocytes % (Auto) 0 % (0-0); Immature Granulocytes Auto 0.02 Thou/mm3 (0.00-0.00); Lymphocytes # (Auto) 1.3 Thou/mm3 (1.0-4.8); Lymphocytes % (Auto) 22 % (10-50); Mean Corpuscular HGB Conc 32.9 g/dl (31.0-37.0); Mean Corpuscular Hemoglobin 27.3 pg (25.0-35.0); Mean Corpuscular Volume 83 fL (80-100); Monocytes # (Auto) 0.4 Thou/mm3 (0.0-0.8); Monocytes % (Auto) 7 % (0-12); Neutrophils % (Auto) 64 % (37-80); Nucleated Red Blood Cell % 0 /100 WBC (0); RDW Standard Deviation 65.4 fL (35.1-43.9); Red Blood Count 2.82 Miln/mm3 (4.50-5.90); White Blood Count 6.2 Thou/mm3 (3.8-10.6)
[2025-03-03 21:07] LABS: Hemoglobin 7.7 g/dL (13.5-16.0); Platelet Count 39 Thou/mm3 (140-440)
[2025-03-03 21:10] LABS: INR 1.3 (0.9-1.3); Prothrombin Time 14.1 Seconds (9.0-12.2)
[2025-03-03 21:15] LABS: Alanine Aminotransferase 14 U/L (10-49); Albumin, Serum 3.6 gm/dL (3.5-5.0); Albumin/Globulin Ratio 0.9 (1.2-2.2); Alkaline Phosphatase 237 U/L (46-116); Anion Gap 9 (7-16); Aspartate Amino Transferase 76 U/L (0-34); BUN/Creatinine Ratio 8 Ratio (12-20); Bilirubin,Total 1.5 mg/dL (0.3-1.2); Blood Urea Nitrogen 5 mg/dL (9-23); Calcium (Corrected) 8.3 mg/dL (8.5-10.1); Carbon Dioxide 25.5 mMol/L (20.0-31.0); Chloride 107 mMol/L (98-107); Creatinine (Component) 0.6 mg/dL (0.6-1.3); Estimated Creatinine Clearance 155.2 mL/min (>60); Globulin 4.2 gm/dL (2.3-3.5); Glucose 106 mg/dL (74-106); Lipase 35 U/L (12-53); Osmolality,Calculated 278 (275-295); Potassium 3.4 mMol/L (3.4-5.1); Sodium 141 mMol/L (136-145); Total Protein 7.8 gm/dL (5.7-8.2); eGFR > 60 See Note
[2025-03-03 22:49] LABS: Slide Review Platelets confirmed
[2025-03-04 02:13] VITALS: BP 122/70; PULSE 76; RESP 16; TEMP 36.8; O2SAT 98
--- NOTE | 2025-03-28 00:43 | PD.EDADDENDU ---
Emergency Room Addendum Addendum Narrative: My notes have been written for this patient.
== END 2025-03-04 02:14 | disposition home or self-care (01) ==
PROVIDERS: Nurse Practitioner Family; Emergency Provider Emergency Medicine
DX: F10.129 Alcohol abuse with intoxication, unspecified (principal)
CPT/HCPCS: 36415; 80053; 83690; 85025; 85610; 86850; 86900; 86901; 99283

== ENCOUNTER 2025-03-12 21:35 | Emergency (ER) | payer MEDICAID, SELFPAY ==
[2025-03-12 21:45] VITALS: BP 131/77; PULSE 100; RESP 18; TEMP 36.8; O2SAT 73
[2025-03-12 21:49] VITALS: PULSE 106; RESP 20; O2SAT 100; BMI 36.1
--- NOTE | 2025-03-12 21:50 | PC.NURSE ---
[place] [facility] HERE ON ARRIVAL WITH PATIENT.
--- NOTE | 2025-03-12 22:26 | XR_ITS ---
Examination: CT brain head without contrast. 2-D sagittal coronal reconstructions Date and time of exam:March 12, 2025 at 1045 hours INDICATIONS: Patient fell today with injury to the head, head pain CTDI: vol (mGy):8.69 DLP: (mGycm):205 Technique: Multiple CT axial sections of the brain have been obtained, 5 mm slice thickness. Contrast has not been administered. 2-D sagittal, coronal reconstructions have been obtained Low dose protocols were performed. One or more of the following dose reduction techniques were used; automated exposure control, adjustment of the mA and/or KV according to patient size, use of iterative reconstruction technique. Findings: No significant ventricular enlargement. Intra-axial or extra-axial hemorrhage density is not seen. No mass effect or midline shift Basal cisterns are not remarkable. Fourth ventricle is midline. Cranial vault intact. Impression: Negative for acute hemorrhage, mass effect or midline shift
--- NOTE | 2025-03-12 22:26 | XR_ITS ---
Examination: CT cervical spine without contrast 2-D sagittal reconstructions 2-D coronal reconstructions 3-D reconstructions. Exam date and time:March 12, 2025 and 40 5:00 PM INDICATION: Patient fell today with intraventricular, neck pain CTDI:vol (mGy) 8.61 DLP: (mGycm) 1192 Technique: Multiple 2 mm axial sections of the cervical spine have been obtained. The coronal and sagittal reconstructions have been obtained. 3-D reconstructions have been obtained. Low dose protocols were performed. One or more of the following dose reduction techniques were used; automated exposure control, adjustment of the mA and/or KV according to patient size, use of iterative reconstruction technique. Findings: Axial sections demonstrate intact base of the skull. C1 exhibit satisfactory relationship to the odontoid. No acute cervical vertebral body fracture seen. Alignment posterior spinous processes satisfactory. Impression: No acute cervical fracture.
[2025-03-12 23:09] VITALS: BP 120/72; O2SAT 96
[2025-03-12 23:31] VITALS: BP 120/72; PULSE 106; RESP 17; O2SAT 95
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
[2025-03-12] MEDS: ACETAMINOPHEN 325 MG TABLET 650 MG PO (23:42)
[2025-03-13] VITALS (17 sets, daily range): BP systolic 100–146; BP diastolic 46–98; PULSE 82–103; RESP 18–19; TEMP 36.4–36.9; O2SAT 85–100
--- NOTE | 2025-03-13 10:00 | PD.EDADDENDU ---
Emergency Room Addendum Addendum Narrative: 0930: Patient was queued for discharge by previous ED physician Dr. Van. At this time patient is awake alert, answering questions. The dressings on his hands were asked to be changed by RN prior to DC. No further/new complaints. Patient discharged in stable condition.
== END 2025-03-13 10:44 | disposition home or self-care (01) ==
PROVIDERS: Emergency Provider Emergency Medicine
DX: S91.111A Laceration without foreign body of right great toe without damage to nail, initial encounter (principal); S61.213A Laceration without foreign body of left middle finger without damage to nail, initial encounter; S61.215A Laceration without foreign body of left ring finger without damage to nail, initial encounter; S09.90XA Unspecified injury of head, initial encounter; M54.2 Cervicalgia; F10.929 Alcohol use, unspecified with intoxication, unspecified; Y09 Assault by unspecified means; Y90.9 Presence of alcohol in blood, level not specified
CPT/HCPCS: 70450; 72125; 99284; A9270

== ENCOUNTER 2025-03-19 16:41 | Emergency (ER) | payer MEDICAID, SELFPAY ==
[2025-03-19] VITALS (7 sets, daily range): BP systolic 100–116; BP diastolic 65–76; PULSE 84–95; RESP 16–18; TEMP 36.4–36.6; O2SAT 96–98; BMI 25.0
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
[2025-03-19 17:41] LABS: Basophils % (Auto) 1 % (0-2.5); Eosinophils # (Auto) 0.2 Thou/mm3 (0.0-0.5); Eosinophils % (Auto) 5 % (0-10); Hematocrit 21.3 % (41.0-53.0); Immature Granulocytes % (Auto) 0 % (0-0); Immature Granulocytes Auto 0.02 Thou/mm3 (0.00-0.00); Lymphocytes % (Auto) 22 % (10-50); Mean Corpuscular HGB Conc 33.3 g/dl (31.0-37.0); Mean Corpuscular Hemoglobin 27.2 pg (25.0-35.0); Mean Corpuscular Volume 82 fL (80-100); Monocytes # (Auto) 0.5 Thou/mm3 (0.0-0.8); Monocytes % (Auto) 11 % (0-12); Neutrophils # (Auto) 2.9 Thou/mm3 (1.8-7.7); Neutrophils % (Auto) 61 % (37-80); Nucleated Red Blood Cell % 0 /100 WBC (0); RDW Standard Deviation 59.3 fL (35.1-43.9); Red Blood Count 2.61 Miln/mm3 (4.50-5.90); White Blood Count 4.8 Thou/mm3 (3.8-10.6)
[2025-03-19 17:48] LABS: Alanine Aminotransferase 10 U/L (10-49); Albumin, Serum 3.5 gm/dL (3.5-5.0); Albumin/Globulin Ratio 0.9 (1.2-2.2); Alkaline Phosphatase 184 U/L (46-116); Anion Gap 12 (7-16); Aspartate Amino Transferase 57 U/L (0-34); BUN/Creatinine Ratio 7 Ratio (12-20); Bilirubin,Total 1.3 mg/dL (0.3-1.2); Blood Urea Nitrogen < 5 mg/dL (9-23); Calcium 7.3 mg/dL (8.3-10.6); Calcium (Corrected) 7.7 mg/dL (8.5-10.1); Carbon Dioxide 23.3 mMol/L (20.0-31.0); Chloride 102 mMol/L (98-107); Creatinine (Component) 0.7 mg/dL (0.6-1.3); Estimated Creatinine Clearance 118.4 mL/min (>60); Globulin 3.8 gm/dL (2.3-3.5); Glucose 121 mg/dL (74-106); Osmolality,Calculated 272 (275-295); Potassium 3.4 mMol/L (3.4-5.1); Sodium 137 mMol/L (136-145); Total Protein 7.3 gm/dL (5.7-8.2); eGFR > 60 See Note
[2025-03-19 17:50] LABS: Hemoglobin 7.1 g/dL (13.5-16.0)
[2025-03-19 17:51] LABS: Platelet Count 26 Thou/mm3 (140-440)
[2025-03-19 17:56] LABS: Slide Review Platelets confirmed
--- NOTE | 2025-03-19 18:07 | EDNOTE_ITS ---
Emergency Room Addendum <Ny Adams - Last Filed: 03/20/25 04:45> Addendum Narrative: I took over the care from Dr. Aquino at 6 PM on 03/19/2025, see her notes for complete H&P and ED course. I reviewed all diagnostic test results. My interpretation of the left hand x-ray is acute fracture proximal phalanx fourth digit. My review of the CT chest/abdomen/pelvis report is no acute findings. Blood tests and urine tests At this point, diagnoses include Treatment here included Significant improvement Based on my best medical judgment, made decision no further evaluation or treatment indicated at this time. Patient understands and agrees to the discharge instructions customized and printed, see below. Discharge Instructions from Dr. Patel printed for you: 1. You have severe liver disease and low platelet count leading to severe anemia due to alcohol abuse. You will not live long if you don't stop alcohol. 2. Eat regular nutritious meals. For good hydration, increase oral fluid and maintain clear urine. If dark or yellow, increase oral fluid. To improve potassium level, eat a banana daily. And eat more magnesium rich food. Such as almonds and cashews including the vegetables. 3. See a private doctor on 03/23/2025 for recheck and further care. Ask to review all test results and official radiology reports, to make sure you receive all necessary follow-ups and monitoring, including repeating potassium and magnesium and red blood cell count levels. To make sure there is no serious intra-abdominal condition, ask for help with more investigation not available here in the ER. Such as EGD or scoping the stomach, colonoscopy or scoping the colon, and referral to see fiber optic central office installer. Ask for help keeping you healthy. Helping you to quit alcohol and manage your liver disease and with regular physical exam and health maintenance. 4. Seek immediate medical care with worsening or with any concerns. Roman Patel MD <Roman Patel MD - Last Filed: 03/20/25 05:06> Addendum Narrative: I took over the care from Dr. Aquino at 6 PM on 03/19/2025, see her notes for complete H&P and ED course. I reviewed all diagnostic test results. My interpretation of the left hand x-ray is acute fracture proximal phalanx fourth digit. My review of the CT chest/abdomen/pelvis report is cirrhosis. Blood tests and urine tests remarkable for Hgb 7.1, Plt 26, K 3.4, Mg 1.5, and serum alcohol 424.7. Positive influenza At this point, diagnoses include: Cirrhosis Alcohol abuse Alcohol intoxication Severe anemia Low platelet count Hypomagnesemia Hypokalemia Left hand fracture Influenza Treatment here included IV fluid, blood transfusion, Tamiflu, left hand splint, oral KCl, MgSO4 2 gram IV. Significant improvement noted. Based on my best medical judgment, made decision no further evaluation or treatment indicated at this time. Patient understands and agrees to the discharge instructions customized and printed, see below. Discharge Instructions from Dr. Patel printed for you: 1. You have severe liver disease and low platelet count leading to severe anemia due to alcohol abuse. You will not live long if you don't stop alcohol. 2. Eat regular nutritious meals. For good hydration, increase oral fluid and maintain clear urine. If dark or yellow, increase oral fluid. To improve potassium level, eat a banana daily. And eat more magnesium rich food. Such as almonds and cashews including the vegetables. 3. For your left hand fracture, keep the splint clean and dry and intact until cleared by a doctor taking care of you. Elevate above the heart level is much as possible. Placing your hand on your head is a good method. 4. Take Tamiflu for your influenza. 5. See a private doctor on 03/23/2025 for recheck and further care. Ask to review all test results and official radiology reports, to make sure you receive all necessary follow-ups and monitoring, including repeating potassium and magnesium and red blood cell count levels. To make sure there is no serious intra-abdominal condition, ask for help with more investigation not available here in the ER. Such as EGD or scoping the stomach, colonoscopy or scoping the colon, and referral to see fiber optic central office installer. Ask for help keeping you healthy. Helping you to quit alcohol and manage your liver disease and with regular physical exam and health maintenance. 6. Seek immediate medical care with worsening or with any concerns. Roman Patel MD
[2025-03-19 18:46] LABS: INR 1.4 (0.9-1.3); Partial Thromboplastin Time 31.8 Seconds (22.0-36.0)
[2025-03-19 18:48] LABS: Collection Type, Urine Clean Catch; Squamous Epithelial Cell,Urine 0 /hpf (0-5)
[2025-03-19 18:49] LABS: Amylase 131 U/L (30-118); Free T4 (Free Thyroxine) 1.35 ng/dL (0.89-1.76); Lipase 37 U/L (12-53); Magnesium 1.5 mg/dL (1.6-2.6)
[2025-03-19 19:00] LABS: Alcohol, Blood Medical 424.7 mg/dL (0-10.0)
[2025-03-19 19:08] LABS: OBS Developer Expiration Date 2026-09; OBS Developer Lot # 23003; OBS Performed By Millm5; OBS QC OK? Yes; Occult Blood, Stool Negative (Negative)
[2025-03-19 19:16] LABS: Bilirubin,Urine Negative (Negative); Blood,Urine Negative (Negative); Clarity,Urine Clear (Clear/Hazy); Color,Urine Colorless (Lt Yel-Yel); Culture Indicated,Urine Not Indicated; Glucose, Urine Negative (Negative); Ketones,Urine Negative (Negative); Leukocyte Esterase,Urine Negative (Negative); Nitrite,Urine Negative (Negative); PH,Urine 6.5 (5.0-7.0); Protein,Urine Negative (Neg - Trace); RBC,Urine 1 /hpf (0-3); Specific Gravity,Urine 1.005 (1.001-1.035); Urobilinogen,Urine Negative mg/dL (0.0-1.0); WBC,Urine 1 /hpf (0-5)
[2025-03-19] MEDS: SODIUM CHLORIDE 0.9% 1000 ML 1,000 ML 999 ML IV ×2 (20:00→22:12)
[2025-03-19] MEDS: Magnesium Sulfate 2 GM Ivpb 2 GM/50 ML BAG IV (20:01)
[2025-03-19] MEDS: ONDANSETRON INJ 2 MG/ML INJ 2 ML 4 MG IV (20:02)
[2025-03-19] MEDS: THIAMINE INJ 100 MG/ML VIAL 2 ML IV (20:03)
[2025-03-19] MEDS: FAMOTIDINE INJ 10 MG/ML VIAL 2 ML 20 MG IVP (20:04)
[2025-03-19] MEDS: PANTOPRAZOLE INJ 40 MG VIAL IVP (20:05)
[2025-03-19 20:09] LABS: Amphetamine/Methamp Scrn,U Negative (Negative); Barbiturate Screen,Urine Negative (Negative); Benzodiazepines Screen,Urine Negative (Negative); Benzoylecgonine Screen, Ur Negative (Negative); Fentanyl Screen,Urine Negative (Negative); Opiate Screen,Urine Negative (Negative); THC Screen,Urine Negative (Negative)
--- NOTE | 2025-03-19 20:44 | XR_ITS ---
Examination: CT chest, without intravenous contrast. CT abdomen, without intravenous contrast. CT pelvis, without intravenous contrast. 2-D sagittal and coronal reconstructions. 3-D reconstructions. Date and time of exam:March 19, 2025, 2119 hours Comparison January 09, 2023 INDICATIONS: Shortness of breath abdominal pain generalized abdominal pain today CTDI vol (mgy) 9 DLP (MGycm)640 Technique: Multiple CT images, 3.0 mm slice thickness, obtained chest, abdomen, pelvis, with the high-resolution 64 slice scanner.. Sagittal and coronal 2-D reconstructions are obtained. 3-D reconstructions Low dose protocols were performed. One or more of the following dose reduction techniques were used; automated exposure control, adjustment of the mA and/or KV according to patient size, use of iterative reconstruction technique. Findings: No thoracic aortic aneurysm dilatation Mild enlargement main pulmonary artery segment No paratracheal tracheobronchial or bronchopulmonary adenopathy No pneumonia, pulmonary edema or pleural disease Cirrhosis, liver nodular in contour No gallstones Mild splenomegaly Portosystemic collateral vessels medial to the spleen No pancreatic mass No renal or ureteral calculi Trace ascites No bowel obstruction Normal appendix Thickening of the colonic wall especially rectosigmoid, hepatic colopathy pattern No prostatomegaly Urinary bladder wall thickening up to 12 mm IMPRESSION: No mediastinal lymphadenopathy No pneumonia, pulmonary edema or pleural disease Stable 12 mm pulmonary nodule left lower lobe compared with January 09, 2023 Cirrhosis Splenomegaly Trace ascites Hepatic colopathy No bowel obstruction Normal appendix
[2025-03-19] MEDS: POTASSIUM CHLORIDE 10% 20 MEQ/15 ML UDC 40 MEQ PO (21:35)
[2025-03-19] MEDS: OSELTAMIVIR 75 MG CAPSULE PO (21:35)
[2025-03-20] VITALS (7 sets, daily range): BP systolic 105–149; BP diastolic 68–94; PULSE 72–112; RESP 12–18; TEMP 36.7–37.1; O2SAT 94–98
[2025-03-20 03:43] LABS: Basophils # (Auto) 0.1 Thou/mm3 (0.0-0.2); Basophils % (Auto) 2 % (0-2.5); Eosinophils # (Auto) 0.2 Thou/mm3 (0.0-0.5); Eosinophils % (Auto) 6 % (0-10); Hematocrit 25.8 % (41.0-53.0); Immature Granulocytes % (Auto) 1 % (0-0); Immature Granulocytes Auto 0.02 Thou/mm3 (0.00-0.00); Lymphocytes # (Auto) 0.6 Thou/mm3 (1.0-4.8); Lymphocytes % (Auto) 19 % (10-50); Mean Corpuscular HGB Conc 33.3 g/dl (31.0-37.0); Mean Corpuscular Volume 81 fL (80-100); Monocytes # (Auto) 0.4 Thou/mm3 (0.0-0.8); Monocytes % (Auto) 13 % (0-12); Neutrophils % (Auto) 61 % (37-80); Nucleated Red Blood Cell % 0 /100 WBC (0); RDW Standard Deviation 59.5 fL (35.1-43.9); Red Blood Count 3.18 Miln/mm3 (4.50-5.90); White Blood Count 3.3 Thou/mm3 (3.8-10.6)
[2025-03-20 03:48] LABS: Hemoglobin 8.6 g/dL (13.5-16.0)
[2025-03-20 03:54] LABS: Alcohol, Blood Medical 267.5 mg/dL (0-10.0); Platelet Count 25 Thou/mm3 (140-440)
[2025-03-20 04:04] LABS: Slide Review Platelets confirmed
== END 2025-03-20 07:19 | disposition home or self-care (01) ==
PROVIDERS: Emergency Medicine; Emergency Provider Emergency Medicine
DX: S62.614A Displaced fracture of proximal phalanx of right ring finger, initial encounter for closed fracture (principal); Y09 Assault by unspecified means; K74.60 Unspecified cirrhosis of liver; E83.42 Hypomagnesemia; E87.6 Hypokalemia; F10.20 Alcohol dependence, uncomplicated; D64.9 Anemia, unspecified
CPT/HCPCS: 29126; 36415; 36430; 71250; 73130; 74176; 80053; 80307; 80320; 81001; 82150; 82270; 83690; 83735; 84439; 84443; 85025; 85610; 85730; 86850; 86900; 86901; 86921; 86922; 87400; 87811; 96361; 96365; 96366; 96375; 99284; J2405; J2470; J3411; J3475; J3490; J7030; P9016; A9270; G0480

== ENCOUNTER 2025-03-22 08:49 | Emergency (ER) | payer MEDICAID, SELFPAY ==
[2025-03-22 08:50] VITALS: PULSE 94; RESP 18; O2SAT 97; BMI 29.1
--- NOTE | 2025-03-22 09:45 | XR_ITS ---
Examination: CT brain head without contrast. 2-D sagittal coronal reconstructions Date and time of exam:March 22, 2025 0952 hours INDICATIONS: Seizures today, patient fell CTDI: vol (mGy):48.1 DLP: (mGycm):907 Technique: Multiple CT axial sections of the brain have been obtained, 5 mm slice thickness. Contrast has not been administered. 2-D sagittal, coronal reconstructions have been obtained Low dose protocols were performed. One or more of the following dose reduction techniques were used; automated exposure control, adjustment of the mA and/or KV according to patient size, use of iterative reconstruction technique. Findings: No significant ventricular enlargement. Intra-axial or extra-axial hemorrhage density is not seen. No mass effect or midline shift Basal cisterns are not remarkable. Fourth ventricle is midline. Cranial vault intact. Impression: Negative for acute hemorrhage, mass effect or midline shift Advise clinical correlation and follow up accordingly
== END 2025-03-22 13:00 | disposition left against medical advice (07) ==
LOC: SERX 16:56
PROVIDERS: Emergency Provider Emergency Medicine; Referring Provider Emergency Medicine
DX: S01.01XA Laceration without foreign body of scalp, initial encounter (principal); R56.9 Unspecified convulsions; F10.129 Alcohol abuse with intoxication, unspecified; W18.30XA Fall on same level, unspecified, initial encounter; Z53.29 Procedure and treatment not carried out because of patient's decision for other reasons
CPT/HCPCS: 12001; 70450; 99284

== ENCOUNTER 2025-03-28 04:47 | Inpatient (IN) | payer MEDICAID, SELFPAY ==
[2025-03-28] VITALS (28 sets, daily range): BP systolic 65–129; BP diastolic 41–88; PULSE 75–132; RESP 12–98; TEMP 36.4–37.3; O2SAT 83–100; BMI 27.9
--- NOTE | 2025-03-28 05:03 | PC.NURSE ---
PT [facility] BY [facility], HAS 700CC BLOOD TINGED EMESIS.
--- NOTE | 2025-03-28 05:10 | EDRME_ITS ---
Rapid Medical Screening Exam [facility] Arrival date/time: 03/28/25 04:47 44M with history of alcoholic cirrhosis presents to ED with vomiting blood. Chief Complaint: Nausea/Vomiting/Diarrhea Vital signs: Vital Signs Temperature 98.7 F 03/28/25 05:03 Pulse Rate 83 03/28/25 05:03 Respiratory Rate 15 03/28/25 05:03 Blood Pressure 65/42 L 03/28/25 05:03 Pulse Oximetry (%) 98 03/28/25 05:03
[2025-03-28] MEDS: ONDANSETRON INJ 2 MG/ML INJ 2 ML 4 MG IV (05:22)
[2025-03-28] MEDS: RINGERS LACTATED 1000 ML 1,000 ML 999 ML IV ×2 (05:23→05:53)
[2025-03-28] MEDS: OCTREOTIDE ACET INJ 50 mCg/ML VIAL IV (05:25)
[2025-03-28 05:26] LABS: Lactate (Lactic Acid) 3.3 mMol/L (0.4-2.0)
[2025-03-28] MEDS: PANTOPRAZOLE INJ 40 MG VIAL 80 MG IVP (05:27)
[2025-03-28 05:30] LABS: Basophils # (Auto) 0.2 Thou/mm3 (0.0-0.2); Basophils % (Auto) 1 % (0-2.5); Eosinophils # (Auto) 0.4 Thou/mm3 (0.0-0.5); Eosinophils % (Auto) 4 % (0-10); Hematocrit 24.6 % (41.0-53.0); Immature Granulocytes % (Auto) 0 % (0-0); Immature Granulocytes Auto 0.03 Thou/mm3 (0.00-0.00); Lymphocytes # (Auto) 2.1 Thou/mm3 (1.0-4.8); Lymphocytes % (Auto) 18 % (10-50); Mean Corpuscular HGB Conc 32.5 g/dl (31.0-37.0); Mean Corpuscular Hemoglobin 26.6 pg (25.0-35.0); Mean Corpuscular Volume 82 fL (80-100); Monocytes # (Auto) 0.7 Thou/mm3 (0.0-0.8); Monocytes % (Auto) 6 % (0-12); Neutrophils # (Auto) 8.2 Thou/mm3 (1.8-7.7); Neutrophils % (Auto) 71 % (37-80); Nucleated Red Blood Cell % 0 /100 WBC (0); RDW Standard Deviation 58.3 fL (35.1-43.9); Red Blood Count 3.01 Miln/mm3 (4.50-5.90); White Blood Count 11.6 Thou/mm3 (3.8-10.6)
[2025-03-28 05:32] LABS: Platelet Count 42 Thou/mm3 (140-440)
[2025-03-28 05:43] LABS: INR 1.5 (0.9-1.3); Partial Thromboplastin Time 25.9 Seconds (22.0-36.0); Prothrombin Time 15.7 Seconds (9.0-12.2)
[2025-03-28] MEDS: LORazepam 2 MG/ML VIAL IVP (05:48)
[2025-03-28 05:51] LABS: Slide Review Platelets confirmed
[2025-03-28 05:53] LABS: Alanine Aminotransferase 11 U/L (10-49); Albumin, Serum 3.6 gm/dL (3.5-5.0); Albumin/Globulin Ratio 1.1 (1.2-2.2); Alcohol, Blood Medical 221.6 mg/dL (0-10.0); Alkaline Phosphatase 191 U/L (46-116); Anion Gap 13 (7-16); Aspartate Amino Transferase 58 U/L (0-34); BUN/Creatinine Ratio 15 Ratio (12-20); Bilirubin,Total 1.6 mg/dL (0.3-1.2); Blood Urea Nitrogen 15 mg/dL (9-23); Calcium 7.8 mg/dL (8.3-10.6); Calcium (Corrected) 8.1 mg/dL (8.5-10.1); Carbon Dioxide 24.1 mMol/L (20.0-31.0); Chloride 106 mMol/L (98-107); Estimated Creatinine Clearance 90.8 mL/min (>60); Globulin 3.4 gm/dL (2.3-3.5); Glucose 140 mg/dL (74-106); Osmolality,Calculated 287 (275-295); Potassium 3.7 mMol/L (3.4-5.1); Procalcitonin 0.15 ng/ml (0.0-0.49); Sodium 143 mMol/L (136-145); eGFR > 60 See Note
[2025-03-28 05:54] LABS: Ammonia 100 uMol/L (11-32)
[2025-03-28 06:28] LABS: Magnesium 1.5 mg/dL (1.6-2.6); Phosphorous 4.2 mg/dL (2.4-5.1)
--- NOTE | 2025-03-28 07:23 | PD.EDGIBLD ---
ED GI Bleed RME/HPI General Chief complaint: Nausea/Vomiting/Diarrhea Stated complaint: VOMITING BLOOD Arrival date/time: 03/28/25 04:47 Limitations: no limitations RME / HPI RME / HPI Narrative: 03/28/25 04:47 44M with history of alcoholic cirrhosis presents to ED with vomiting blood. DR. TAPIA MAIN ED EVALUATION: 44 year old male with history of chronic alcoholism, esophageal varices requiring band ligation, alcoholic cirrhosis, multiple hospital admissions for alcohol intoxication presents to the ED BIBA for evaluation of vomiting blood. Patient reports two episodes of vomiting blood, the first occurring at 02:00 AM today. He describes associated abdominal distention and pain. Additionally, he complains of generalized weakness and a headache. Patient admits to drinking two of the big beers daily and last drank last night. He denies fevers, chills, night sweats, chest pain, cough, shortness of breath, diarrhea, constipation, or urinary issues. No other symptoms reported. Related Data Home Medications ?Medication ?Instructions ?Recorded ?Confirmed cyclobenzaprine 5 mg tablet 5 mg PO 3XD 05/25/24 05/25/24 Previous Rx's ?Medication ?Instructions ?Recorded midodrine 5 mg tablet 5 mg PO TID #90 tabs 05/26/24 ferrous sulfate 325 mg (65 mg 325 mg PO QOD #60 tabs 08/11/24 iron) tablet,delayed release pantoprazole 40 mg tablet,delayed 40 mg PO QDAY #60 tabs 08/11/24 release chlordiazepoxide HCl 25 mg capsule 25 mg PO TID PRN alcohol 08/26/24 withdrawal #30 caps ibuprofen 800 mg tablet 800 mg PO TID PRN pain #30 tabs 11/24/24 Allergies Allergy/AdvReac Type Severity Reaction Status Date / Time No Known Allergies Allergy Verified 03/28/25 04:59 Review of Systems Review of Systems Narrative Review of Systems: GEN: No fever, no chills, no weight loss EYES: No discharge, no visual changes, no pain HEENT: No ear pain, no congestion, no sore throat PULM: No shortness of breath, no cough, no congestion CV: No chest pain, no dyspnea on exertion, no palpitations GI: + nausea, + vomiting blood, no diarrhea, +pain, no constipation : No frequency, no urgency and no dysuria MUSC/SKEL No joint pain, no back pain SKIN: No rash NEURO: +headache Past Medical History Past Medical History CARDIAC: Positive Cardiac Disorders, Myocardial Infarction, Angina and Hypertension GASTROINTESTINAL: Positive Hepatitis, Gastrointestinal Bleed, Esophageal Varices and Gastroesophageal Reflux Disease HEMATOLOGIC: Positive Anemia PSYCHO/SOCIAL: Positive Recreational Drug Use, Depression and Anxiety OTHER HISTORY: Positive Falls and Chicken Pox Family History FAMILY HISTORY: Negative Family Psychiatric Problems, Family Respiratory Disorders, Family Cardiac Disorders, Family Gastrointestinal Problems, Family Cancer, Family Surgery or Family Anesthesia Reaction Surgical History SURGICAL: Negative Cardiac Surgery, Pacemaker, Endocrine Surgery, Ear Surgery, Abdominal Surgery, Nephrectomy, Joint Replacement, Neurologic Surgery or Vasectomy Social History SMOKING STATUS: Never smoker SECOND HAND EXPOSURE: No SUBSTANCE USE: methamphetamine ED Exam General Limitations: Present no limitations General appearance: Present alert, in no apparent distress and appears intoxicated (smells of alcohol, speech slurred 2/2 alcohol, no blood noted on lips) Head Head exam: Present atraumatic, normocephalic and normal inspection Eye Eye exam: Present normal appearance, PERRL and EOMI; Absent scleral icterus ENT ENT exam: Present normal exam, normal oropharynx and mucous membranes moist Neck Neck exam: Present normal inspection, full ROM and trachea midline Chest Chest inspection: Present normal inspection and symmetric chest wall rise Respiratory Respiratory exam: Present normal lung sounds bilaterally Cardiovascular Cardiovascular exam: Present regular rate, normal rhythm and normal heart sounds Abdominal Exam Abdominal exam: Present soft, distention (throughout, I could not appreciate a fluid shift), normal bowel sounds and other (No masses ) Extremities Exam Extremities exam: Present normal inspection and full ROM Back Exam Back exam: Present normal inspection and full ROM Neurological Exam Neurological exam: Present alert, oriented X3, CN II-XII intact and other (Patient did not have any tremor or flap ) Psychiatric Psychiatric exam: Present normal affect and normal mood Skin Skin exam: Present warm, dry, intact and normal color Course Quality Measures none Orders Category Date Time Status COVID-19 Screening Questionnaire NOW Care 03/28/25 07:27 Active Decision to Admit X1 Care 03/28/25 07:27 Active Insert IV NOW Care 03/28/25 05:08 Active Occult Blood,Stool (Nursing) NOW Care 03/28/25 05:35 Active Alcohol, Blood Medical Stat Lab 03/28/25 05:15 Completed Ammonia Stat Lab 03/28/25 05:15 Completed CBC Stat Lab 03/28/25 05:15 Completed CMP [Comprehensive Metabolic Panel] Stat Lab 03/28/25 05:15 Completed INR [Prothrombin Time with INR] Stat Lab 03/28/25 05:15 Completed Lactate (Lactic Acid) Stat Lab 03/28/25 05:15 Results Lactic Acid [Lactate (Lactic Acid)] Stat Lab 03/28/25 07:19 Ordered Magnesium Stat Lab 03/28/25 05:15 Completed PTT [Partial Thromboplastin Time] Stat Lab 03/28/25 05:15 Completed Phosphorous Stat Lab 03/28/25 05:15 Completed Procalcitonin Stat Lab 03/28/25 05:15 Completed Type and Screen Stat Lab 03/28/25 05:15 Completed LORazepam [Ativan Inj] Med 03/28/25 05:45 Discontinued 2 mg IVP X1 ONE Lactulose Syrup [Enulose Syrup] Med 03/28/25 07:19 Discontinued 20 gm PO X1 ONE Octreotide Acet Inj [SandoSTATIN Inj] Med 03/28/25 05:08 Discontinued 50 mcg IV X1 ONE Ondansetron Inj [Zofran Inj] Med 03/28/25 05:08 Discontinued 4 mg IV X1 ONE Pantoprazole Inj [Protonix Inj] Med 03/28/25 05:08 Discontinued 80 mg IVP X1 ONE Ringers Lactated 1000 ml [Lactated Ringers] 1,000 ml Med 03/28/25 05:08 Discontinued IV 999 mls/hr Ringers Lactated 1000 ml [Lactated Ringers] 1,000 ml Med 03/28/25 05:10 Discontinued IV 999 mls/hr Sodium Chloride 0.9% [Ns] 100 ml Med 03/28/25 07:17 Active Octreotide Acet Inj [SandoSTATIN Inj] 1,000 mcg IV 50 mcg/hr Vital Signs Vital signs: Vital Signs Temperature 98.7 F 03/28/25 05:03 Pulse Rate 83 03/28/25 05:03 Respiratory Rate 15 03/28/25 05:03 Blood Pressure 65/42 L 03/28/25 05:03 Pulse Oximetry (%) 98 03/28/25 05:03 Pulse ox is 98% on room air which is adequate. GI Bleed MDM Narrative MDM Narrative:: Shakila Landres am scribing for and in the presence of Dr. Tapia. Patient data External records reviewed:: [facility] previous records (I reviewed ED visit on 03/19/2025 ) Clinical information provided by:: patient Social determinants that could affect healthcare access:: alcohol use Patient has the following chronic illnesses:: chronic alcoholism, esophageal varices requiring band ligation, alcoholic cirrhosis, multiple hospital admissions for alcohol intoxication How is presenting disease/condition affected by chronic disease/condition?: exacerbated by Evaluation data The following diagnostics were reviewed and interpreted by me:: lab results Lab and/or radiology exams considered but not ordered:: None Interpretation Summary: Patient is chronically anemic, dating back to 2021. Na and K+ are within normal limits. Lactic acid is elevated. Ammonia 100. Medications / Prescriptions Medications or Prescriptions considered but not ordered:: None Medication administrations:: Medication Administration History Octreotide Acetate 1,000 mcg/ (Sodium Chloride) 102 mls @ 5.1 mls/hr IV .Q20H BRANDI; Protocol Stop: 04/02/25 07:17 Discontinued Medications Lactated Ringer's (Lactated Ringers) 1,000 mls @ 999 mls/hr IV .Q1H1M ONE Stop: 03/28/25 06:08 Last Infusion: 03/28/25 06:20 Dose: Infused Documented By: Admin: 03/28/25 05:23 Dose: 999 mls/hr Documented By: DT Lactated Ringer's (Lactated Ringers) 1,000 mls @ 999 mls/hr IV .Q1H1M ONE Stop: 03/28/25 06:10 Last Infusion: 03/28/25 06:59 Dose: Infused Documented By: Admin: 03/28/25 05:53 Dose: 999 mls/hr Documented By: DT Lactulose (Lactulose Syrup 20 Gm/30 [place] [facility] [place] 20 gm PO X1 ONE; Protocol Stop: 03/28/25 07:20 Lorazepam (Lorazepam 2 Mg/Ml Vial) 2 mg IVP X1 ONE Stop: 03/28/25 05:46 Last Admin: 03/28/25 05:48 Dose: 2 mg Documented By: DT Octreotide Acetate (Octreotide Acet Inj 50 Mcg/Ml Vial) 50 mcg IV X1 ONE Stop: 03/28/25 05:09 Last Admin: 03/28/25 05:25 Dose: 50 mcg Documented By: DT Ondansetron HCl (Ondansetron Inj 2 Mg/Ml Inj 2 Ml) 4 mg IV X1 ONE; Protocol Stop: 03/28/25 05:09 Last Admin: 03/28/25 05:22 Dose: 4 mg Documented By: DT Pantoprazole Sodium (Pantoprazole Inj 40 Mg Vial) 80 mg IVP X1 ONE Stop: 03/28/25 05:09 Last Admin: 03/28/25 05:27 Dose: 80 mg Documented By: DT See above Consultations Consultation(s) initiated? (list below): Yes Consultation #1 (Physician, Specialty, Details): I spoke with resident working with Dr. Hubbard. Discussed patients PMHx, HPI, ED course, exam findings, labs, and radiology results. Will come evaluate patient in the ED. Time: 07:25 Diagnosis GI bleed differential diagnosis: esophageal varices, gastritis, Upper gastrointestinal hemorrhage and other (hematemesis) Most likely diagnosis given after review of the tests above:: Upper GI bleed Alcohol intoxication Elevated lactic Alcoholic cirrhosis Anemia Admission Indicated Admission indicated?: not indicated Admission Request Was there a request for admission?: Yes Admission Attestation Admission request attestation: Discussed case with [] from Hospitalist service regarding admission. Discussed patients ED course, exam findings, labs, and radiology results. The Hospitalist [agrees,declines] to accept the patient for admission. Disposition Plan Disposition Plan: Admit Critical Care Time Critical Care Time Critical Care Time: Yes Total Critical Care Time (min.): 40 Attestation: The high probability of sudden, clinically significant deterioration in the patient's condition required the highest level of my preparedness to intervene urgently. The services I provided to this patient were to treat and/or prevent clinically significant deterioration. Services included the following: chart data review, reviewing nursing notes and/or old charts, documentation time, absence management consultant collaboration regarding findings and treatment options, medication orders and management, direct patient care, vital sign assessments and ordering, interpreting and reviewing diagnostic studies and lab tests. Aggregate critical care time includes only time during which I was engaged in work directly related to the patient's care, as described above, whether at bedside or elsewhere in the Emergency Department. It did not include time spent performing other reported procedures or the services of residents, students, nurses or physician assistants. Discharge Plan Plan Patient Disposition: Admit Acute Care w/in Hospital Prescriptions/Referrals Prescriptions/Med Rec: No Action cyclobenzaprine 5 mg tablet 5 mg PO 3XD Patient Comments: TAKE 1 TABLET BY MOUTH NEEDED FOR MUSCLE PAIN 3 TIMES DAILY 10 DAYS midodrine 5 mg tablet 5 mg PO TID Qty: 90 0RF Rx Instructions: do not give last dose of day after 6PM or within 4 hrs of bedtime ferrous sulfate 325 mg (65 mg iron) Tablet,Delayed Release (Dr/Ec) 325 mg PO QOD Qty: 60 0RF pantoprazole 40 mg tablet,delayed release (DR/EC) 40 mg PO QDAY Qty: 60 0RF chlordiazepoxide HCl 25 mg capsule 25 mg PO TID PRN (Reason: alcohol withdrawal) Qty: 30 0RF ibuprofen 800 mg tablet 800 mg PO TID PRN (Reason: pain) Qty: 30 0RF Referrals: Cezar Adams MD [Primary Care Provider] - In 1 week Problem List Clinical Impression: Acute upper GI bleed, Alcohol intoxication, Elevated lactic acid level, Alcoholic cirrhosis, Anemia Patient/Caregiver Discharge Instructions Print Language: Irish Stand Alone Forms: Kallie Award Info., Patient Portal Info Letter
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
[2025-03-28] MEDS: OCTREOTIDE ACET INJ 1,000 MCG in SODIUM CHLORIDE 0.9% 100 ML 5.1 MCG IV (07:59)
[2025-03-28] MEDS: LACTULOSE SYRUP 20 GM/30 ML UDC PO ×3 (07:59→21:37)
[2025-03-28 08:23] LABS: Reflex Lactate? Y
[2025-03-28 08:23] LABS: Lactate (Lactic Acid) 3.2 mMol/L (0.4-2.0)
[2025-03-28] MEDS: chlordiazePOXIDE HCl 25 MG CAPSULE 50 MG PO ×3 (09:32→21:37)
[2025-03-28] MEDS: FOLIC ACID INJ 1 MG/0.2 ML IVP (09:34)
[2025-03-28] MEDS: THIAMINE INJ 100 MG/ML VIAL 2 ML IVP ×2 (09:35→09:36)
[2025-03-28] MEDS: cefTRIAXone/D5w 1gm IV premix 1 GM/50 ML BAG IV (09:38)
[2025-03-28 11:08] LABS: Reflex Lactate? Y
[2025-03-28 11:32] LABS: Lactic Acid, 3 HR 2.3 mMol/L (0.4-2.0)
[2025-03-28] MEDS: Magnesium Sulfate 4 GM Ivpb 4 GM/50 ML BAG IV (13:32)
[2025-03-28 14:25] LABS: Lactate (Lactic Acid) 2.2 mMol/L (0.4-2.0)
--- NOTE | 2025-03-28 14:41 | PD.IMCONS ---
HPI Data of Consult Requesting Physician: Cathy Hubbard MD Primary Care Provider: Cezar Adams MD Consult Narrative Reason for consult: Hematemesis History of present illness: 43 years old male who presented to the hospital with multiple bouts of hematemesis He does have a history of alcohol abuse and on 08/10/2024 underwent upper endoscopy at that time the clinical presentation was coffee-ground emesis He had esophageal varices requiring band ligation of the esophageal varices at that point He is not taking any NSAIDs or blood thinners cc:: cc: Cathy Hubbard MD Review of Systems Review of Systems Systems Reviewed: All systems reviewed, normal except as documented Past Medical History Surgical History OTHER SURGICAL HX: As in the history of present illness Meds Home Medications and Allergies Home Medications ?Medication ?Instructions ?Recorded ?Confirmed ?Type cyclobenzaprine 5 mg tablet 5 mg PO 3XD 05/25/24 05/25/24 History Allergies Allergy/AdvReac Type Severity Reaction Status Date / Time No Known Allergies Allergy Verified 03/28/25 04:59 Exam Vital Signs Temp Pulse Resp BP Pulse Ox O2 Del Method O2 Flow Rate 97.6 F 105 H 18 115/78 97 Room Air 2 03/28/25 12:00 03/28/25 12:00 03/28/25 12:00 03/28/25 12:00 03/28/25 12:00 03/28/25 12:00 03/28/25 06:13 Constitutional Comments: Alert oriented Routine Respiratory Exam Comments: Normal to auscultation Routine Abdominal Exam Comments: Soft nontender Results Labs 03/28/25 05:15 03/28/25 05:15 Labs: Short CBC 03/28/25 Range/Units 05:15 WBC 11.6 H (3.8-10.6) Thou/mm3 Hgb 8.0 L (13.5-16.0) g/dL Hct 24.6 L (41.0-53.0) % Plt Count 42 L D (140-440) Thou/mm3 BMP 03/28/25 05:15 Sodium 143 Potassium 3.7 Chloride 106 Carbon Dioxide 24.1 BUN 15 Creatinine 1.0 Glucose 140 H Calcium 7.8 L Liver Function 03/28/25 Range/Units 05:15 Total Bilirubin 1.6 H (0.3-1.2) mg/dL AST 58 H (0-34) U/L ALT 11 (10-49) U/L Alkaline Phosphatase 191 H (46-116) U/L Albumin 3.6 (3.5-5.0) gm/dL Assessment and Plan Additional Assessment & Plan Additional Plan: # GI bleed in the form of hematemesis patient now having a lot of melanotic stools Plan Continue octreotide infusion Continue IV Protonix Serial CBC Consent obtained for fiberoptic esophagogastroduodenoscopy with possible therapeutic intervention under intravenous moderate sedation scheduled for today Will follow the patient Counseled the patient on complete abstinence of alcohol Thank you very much for the opportunity to participate in the care of this patient
[2025-03-28] MEDS: LORazepam 2 MG/ML VIAL 0.5 MG IV (17:02)
[2025-03-28 17:23] LABS: Reflex Lactate? Y
--- NOTE | 2025-03-28 17:51 | SUR.PHASEI ---
pt received from OR in recovery bay 1. pt asleep but responds to voice, breathing unlabored on room air. pt tachycardic all other v/s stable. report received from Tenisha ABDUL.
--- NOTE | 2025-03-28 18:25 | SUR.PHASEI ---
pt asleep but responds to voice, breathing unlabored on room air. pt tachycardic all other v/s stable. report called to Will ABDUL. pt will be transferred to room at this time.
[2025-03-28 19:11] LABS: Lactic Acid, 3 HR 1.5 mMol/L (0.4-2.0)
[2025-03-28] MEDS: PANTOPRAZOLE INJ 40 MG VIAL IVP (21:37)
[2025-03-29] VITALS (16 sets, daily range): BP systolic 111–124; BP diastolic 76–88; PULSE 72–132; RESP 15–99; TEMP 36.3–36.8; O2SAT 94–100; BMI 28.3
[2025-03-29] MEDS: OCTREOTIDE ACET INJ 1,000 MCG in SODIUM CHLORIDE 0.9% 100 ML 5.1 MCG IV ×2 (02:23→23:49)
[2025-03-29 05:59] LABS: Basophils % (Auto) 1 % (0-2.5); Eosinophils # (Auto) 0.2 Thou/mm3 (0.0-0.5); Eosinophils % (Auto) 5 % (0-10); Immature Granulocytes % (Auto) 0 % (0-0); Immature Granulocytes Auto 0.01 Thou/mm3 (0.00-0.00); Lymphocytes # (Auto) 0.5 Thou/mm3 (1.0-4.8); Lymphocytes % (Auto) 13 % (10-50); Mean Corpuscular Hemoglobin 27.2 pg (25.0-35.0); Mean Corpuscular Volume 82 fL (80-100); Monocytes # (Auto) 0.4 Thou/mm3 (0.0-0.8); Monocytes % (Auto) 10 % (0-12); Neutrophils # (Auto) 2.7 Thou/mm3 (1.8-7.7); Neutrophils % (Auto) 72 % (37-80); Nucleated Red Blood Cell % 0 /100 WBC (0); RDW Standard Deviation 57.1 fL (35.1-43.9); Red Blood Count 2.32 Miln/mm3 (4.50-5.90); White Blood Count 3.8 Thou/mm3 (3.8-10.6)
[2025-03-29 06:07] LABS: Hematocrit 19.1 % (41.0-53.0); Hemoglobin 6.3 g/dL (13.5-16.0); Platelet Count 24 Thou/mm3 (140-440)
[2025-03-29] MEDS: chlordiazePOXIDE HCl 25 MG CAPSULE 50 MG PO ×3 (06:24→21:17)
[2025-03-29] MEDS: LACTULOSE SYRUP 20 GM/30 ML UDC PO ×2 (06:25→21:17)
[2025-03-29 06:28] LABS: Slide Review Platelets confirmed
[2025-03-29 06:29] LABS: Path Review Blood Smear Sent to Pathologist
[2025-03-29 06:40] LABS: Alanine Aminotransferase 10 U/L (10-49); Albumin, Serum 3.3 gm/dL (3.5-5.0); Alkaline Phosphatase 127 U/L (46-116); Anion Gap 10 (7-16); Aspartate Amino Transferase 55 U/L (0-34); BUN/Creatinine Ratio 15 Ratio (12-20); Bilirubin,Total 2.3 mg/dL (0.3-1.2); Blood Urea Nitrogen 12 mg/dL (9-23); Calcium (Corrected) 8.6 mg/dL (8.5-10.1); Carbon Dioxide 25.7 mMol/L (20.0-31.0); Chloride 106 mMol/L (98-107); Creatinine (Component) 0.8 mg/dL (0.6-1.3); Estimated Creatinine Clearance 113.5 mL/min (>60); Globulin 3.3 gm/dL (2.3-3.5); Glucose 107 mg/dL (74-106); Magnesium 1.4 mg/dL (1.6-2.6); Osmolality,Calculated 282 (275-295); Potassium 3.7 mMol/L (3.4-5.1); Sodium 142 mMol/L (136-145); Total Protein 6.6 gm/dL (5.7-8.2); eGFR > 60 See Note
[2025-03-29] MEDS: cefTRIAXone/D5w 1gm IV premix 1 GM/50 ML BAG IV (08:05)
[2025-03-29] MEDS: POTASSIUM CHL 10 mEq IVPB 10 MEQ/100 ML BAG 100 MEQ IV ×2 (08:05→09:28)
[2025-03-29] MEDS: PANTOPRAZOLE INJ 40 MG VIAL IVP ×2 (08:05→21:17)
[2025-03-29] MEDS: LORazepam 2 MG/ML VIAL 1 MG IV (08:05)
[2025-03-29] MEDS: Magnesium Sulfate 4 GM Ivpb 4 GM/50 ML BAG IV (08:06)
[2025-03-29] MEDS: ONDANSETRON INJ 2 MG/ML INJ 2 ML 4 MG IVP (08:06)
[2025-03-29] MEDS: THIAMINE INJ 100 MG/ML VIAL 2 ML IVP (08:22)
--- NOTE | 2025-03-29 09:46 | PD.IMPROG ---
Documentation for date of: 03/29/25 Subjective Subjective Interval history: Status post band ligation of the esophageal varices doing well Exam Vital Signs Temp Pulse Resp BP Pulse Ox O2 Del Method O2 Flow Rate 97.9 F 124 H 24 H 114/86 H 95 Room Air 3 03/29/25 08:00 03/29/25 08:18 03/29/25 08:18 03/29/25 08:00 03/29/25 08:00 03/29/25 08:00 03/28/25 17:45 Objective Labs 03/30/25 05:38 03/30/25 05:38 Labs: Laboratory Results - last 24 hr 03/28/25 03/28/25 03/28/25 05:15 11:18 14:00 WBC RBC Hgb Hct MCV MCH MCHC RDW Std Deviation Plt Count Neut % (Auto) Lymph % (Auto) Davidson % (Auto) Eos % (Auto) Baso % (Auto) Neut # (Auto) Lymph # (Auto) Davidson # (Auto) Eos # (Auto) Baso # (Auto) Immature Gran # (Auto) Absolute Nucleated RBC Immature Gran % Nucleated RBC % Smear Path Review Sodium Potassium Chloride Carbon Dioxide Anion Gap BUN Creatinine Estim Creat Clear Calc eGFR BUN/Creatinine Ratio Glucose Calculated Osmolality Lactic Acid 2.3 H 2.2 H Calcium Corrected Calcium Magnesium Total Bilirubin AST ALT Alkaline Phosphatase Total Protein Albumin Globulin Albumin/Globulin Ratio Misc Test Result Blood Type O Positive Antibody Screen NEGATIVE Crossmatch See Detail Blood Bank Wristband ID Yes 03/28/25 03/29/25 18:44 05:34 WBC 3.8 D RBC 2.32 L Hgb 6.3 L* D Hct 19.1 L* MCV 82 MCH 27.2 MCHC 33.0 RDW Std Deviation 57.1 H Plt Count 24 L* D Neut % (Auto) 72 Lymph % (Auto) 13 Davidson % (Auto) 10 Eos % (Auto) 5 Baso % (Auto) 1 Neut # (Auto) 2.7 Lymph # (Auto) 0.5 L Davidson # (Auto) 0.4 Eos # (Auto) 0.2 Baso # (Auto) 0.0 Immature Gran # (Auto) 0.01 H Absolute Nucleated RBC 0.00 Immature Gran % 0 Nucleated RBC % 0 Smear Path Review Sent to Pathologist Sodium 142 Potassium 3.7 Chloride 106 Carbon Dioxide 25.7 Anion Gap 10 BUN 12 Creatinine 0.8 Estim Creat Clear Calc 113.5 eGFR > 60 BUN/Creatinine Ratio 15 Glucose 107 H Calculated Osmolality 282 Lactic Acid 1.5 Calcium 8.0 L Corrected Calcium 8.6 Magnesium 1.4 L Total Bilirubin 2.3 H D AST 55 H ALT 10 Alkaline Phosphatase 127 H D Total Protein 6.6 Albumin 3.3 L Globulin 3.3 Albumin/Globulin Ratio 1.0 L Misc Test Result Platelets confirmed Blood Type Antibody Screen Crossmatch Blood Bank Wristband ID Impressions Impression: Esophageal variceal band ligation Continue to monitor CBC Continue octreotide infusion Assessment & Plan A&P Narrative # GI bleed in the form of hematemesis patient now having a lot of melanotic stools Plan Continue octreotide infusion Continue IV Protonix Serial CBC Consent obtained for fiberoptic esophagogastroduodenoscopy with possible therapeutic intervention under intravenous moderate sedation scheduled for today Will follow the patient Counseled the patient on complete abstinence of alcohol Thank you very much for the opportunity to participate in the care of this patient Time Spent With Patient Time: Total time spent is greater than 50% in coordination of care (as documented) at patient's floor/unit and/or counseling patient:
--- NOTE | 2025-03-29 10:01 | ESPR_ITS ---
Documentation for date of: 03/29/25 Subjective Subjective Interval history: Patient was seen and examined at bedside this morning. No acute overnight events. Patient did have a EGD done yesterday which showed grade 2 esophageal varices which were banded, esophageal ulcers, and gastritis with hemorrhage. Today patient's hemoglobin dropped to 6.3 and magnesium was 1.4. Otherwise no new complaints and CIWA score this morning was around 15, but no visual or auditory hallucinations. Exam Vital Signs Temp Pulse Resp BP Pulse Ox O2 Del Method O2 Flow Rate 97.9 F 124 H 24 H 114/86 H 95 Room Air 3 03/29/25 08:00 03/29/25 08:18 03/29/25 08:18 03/29/25 08:00 03/29/25 08:00 03/29/25 08:00 03/28/25 17:45 Narrative Exam General: A/O x3, no acute distress, disheveled Eyes: PERRL, EOMI. Icteric, vision grossly intact. Ears: No ear pain, no ear discharge, Hearing grossly intact. Nose: No nasal discharge. Mouth/Throat: Moist mucous membranes, no redness, no lesions. Neck: Neck supple, non-tender, no cervical lymphadenopathy. Lungs: Clear DIONNA to auscultation and percussion, No accessory muscle use. Cardio: Normal S1/S2, regular rhythm, no murmurs, no JVD Abdomen: Soft, non-tender, no palpable masses, peristalsis present, no guarding or rebound. Extremities: Symmetrical, R Hand deformity due to trauma, no peripheral edema , non-tender, peripheral pulses presents. Skin: No rashes, multiple plaque like lesions throught out body, warm to touch. Neuro: No focal neurological deficits. motor and sensory intact Psych: Cooperative, appropriate mood and effect. Objective Labs 03/29/25 05:34 03/29/25 05:34 Labs: Laboratory Results - last 24 hr 03/28/25 03/28/25 03/28/25 05:15 11:18 14:00 WBC RBC Hgb Hct MCV MCH MCHC RDW Std Deviation Plt Count Neut % (Auto) Lymph % (Auto) [place] % (Auto) Eos % (Auto) Baso % (Auto) Neut # (Auto) Lymph # (Auto) [place] # (Auto) Eos # (Auto) Baso # (Auto) Immature Gran # (Auto) Absolute Nucleated RBC Immature Gran % Nucleated RBC % Smear Path Review Sodium Potassium Chloride Carbon Dioxide Anion Gap BUN Creatinine Estim Creat Clear Calc eGFR BUN/Creatinine Ratio Glucose Calculated Osmolality Lactic Acid 2.3 H 2.2 H Calcium Corrected Calcium Magnesium Total Bilirubin AST ALT Alkaline Phosphatase Total Protein Albumin Globulin Albumin/Globulin Ratio Misc Test Result Blood Type O Positive Antibody Screen NEGATIVE Crossmatch See Detail Blood Bank Wristband ID Yes 03/28/25 03/29/25 18:44 05:34 WBC 3.8 D RBC 2.32 L Hgb 6.3 L* D Hct 19.1 L* MCV 82 MCH 27.2 MCHC 33.0 RDW Std Deviation 57.1 H Plt Count 24 L* D Neut % (Auto) 72 Lymph % (Auto) 13 [place] % (Auto) 10 Eos % (Auto) 5 Baso % (Auto) 1 Neut # (Auto) 2.7 Lymph # (Auto) 0.5 L [place] # (Auto) 0.4 Eos # (Auto) 0.2 Baso # (Auto) 0.0 Immature Gran # (Auto) 0.01 H Absolute Nucleated RBC 0.00 Immature Gran % 0 Nucleated RBC % 0 Smear Path Review Sent to Pathologist Sodium 142 Potassium 3.7 Chloride 106 Carbon Dioxide 25.7 Anion Gap 10 BUN 12 Creatinine 0.8 Estim Creat Clear Calc 113.5 eGFR > 60 BUN/Creatinine Ratio 15 Glucose 107 H Calculated Osmolality 282 Lactic Acid 1.5 Calcium 8.0 L Corrected Calcium 8.6 Magnesium 1.4 L Total Bilirubin 2.3 H D AST 55 H ALT 10 Alkaline Phosphatase 127 H D Total Protein 6.6 Albumin 3.3 L Globulin 3.3 Albumin/Globulin Ratio 1.0 L Misc Test Result Platelets confirmed Blood Type Antibody Screen Crossmatch Blood Bank Wristband ID Quality Measures Quality Measures none Assessment & Plan Assessment Current Active Medications: Generic Name Dose Route Start Last Admin Trade Name Freq PRN Reason Stop Dose Admin Acetaminophen 650 mg 03/28/25 07:44 Acetaminophen 325 Mg Tablet PO 04/27/25 07:43 Q6H PRN pain 1-3 OR Fever >100.4 Hydrocodone Bitart/Acetaminophen 1 tab 03/28/25 07:44 Hydrocodone/Apap 5/325 Tablet PO 04/02/25 07:43 Q4HR PRN PAIN SCALE 4-10(Mod-Sev Chlordiazepoxide HCl 50 mg 03/28/25 08:00 03/29/25 06:24 Chlordiazepoxide Hcl 25 Mg Capsule PO 04/02/25 07:59 50 mg TID BRANDI Administration Folic Acid 1 mg 03/28/25 09:00 03/28/25 09:34 Folic Acid Inj 1 Mg/0.2 Ml IVP 04/27/25 08:59 1 mg QDAY BRANDI Administration Octreotide Acetate 1,000 mcg/ 102 mls @ 5.1 mls/hr 03/28/25 07:17 03/29/25 02:23 Sodium Chloride IV 04/02/25 07:17 50 mcg/hr .Q20H BRANDI 5.1 mls/hr Administration Protocol 50 MCG/HR Ceftriaxone Sodium/Dextrose 1 gm in 50 mls @ 100 mls/hr 03/28/25 08:30 03/29/25 08:05 Rocephin/D5w 1gm Iv Premix IV 04/04/25 08:29 100 mls/hr QDAY BRANDI Administration Magnesium Sulfate 4 gm in 50 mls @ 12.5 mls/hr 03/29/25 07:17 03/29/25 08:06 Magnesium Sulfate Ivpb IV 03/29/25 11:16 12.5 mls/hr X1 ONE Administration Lactulose 20 gm 03/28/25 14:00 03/29/25 06:25 Lactulose Syrup 20 Gm/30 Ml Udc PO 04/27/25 13:59 20 gm TID BRANDI Administration Protocol Lorazepam 0.5 mg 03/28/25 07:44 03/28/25 17:02 Lorazepam 2 Mg/Ml Vial IV 04/02/25 07:43 0.5 mg Q2HR PRN Administration CIWA SCORE 8-13 Lorazepam 1 mg 03/28/25 07:44 03/29/25 08:05 Lorazepam 2 Mg/Ml Vial IV 04/02/25 07:43 1 mg Q2HR PRN Administration CIWA SCORE 14-19 Lorazepam 2 mg 03/28/25 07:44 Lorazepam 2 Mg/Ml Vial IV 04/02/25 07:43 Q2HR PRN CIWA SCORE 20-25 Lorazepam 2 mg 03/28/25 07:44 Lorazepam 2 Mg/Ml Vial IVP X1 PRN Breakthrough Agitation Ondansetron HCl 4 mg 03/28/25 07:44 03/29/25 08:06 Ondansetron Inj 2 Mg/Ml Inj 2 Ml IVP 04/27/25 07:43 4 mg Q6H PRN Administration NAUSEA OR VOMITING Protocol Pantoprazole Sodium 40 mg 03/28/25 21:00 03/29/25 08:05 Pantoprazole Inj 40 Mg Vial IVP 04/27/25 20:59 40 mg BID BRANDI Administration Thiamine HCl 100 mg 03/29/25 09:00 03/29/25 08:22 Thiamine Inj 100 Mg/Ml Vial 2 Ml IVP 04/28/25 08:59 100 mg QDAY BRANDI Administration Plan 44-year-old male with past medical history of esophageal varices s/p banding, portal hypertension, alcohol associated cirrhosis, hypertensive portal gastropathy, chronic alcohol use, and frequent hospital admissions or ER visits due to alcohol withdrawal or intoxication was admitted to the hospital on 03/28/2025 due to GI bleed likely secondary to esophageal varices and alcohol withdrawal. #Grade 2 esophageal varices s/p banding #Esophageal ulcers #Gastritis with hemorrhage #GI bleeding #Hematemesis #Acute blood loss anemia #Lactic acidosis, resolved #Hx of esophageal varices s/p banding #Hx of alcohol associated cirrhosis #Hx of alcohol abuse Patient came in with complaints of blood in his vomiting that started yesterday at 2 AM Patient drinks around 3 cans of 36 ounces of beer every day Last drink was yesterday at 8 PM CIWA score on my assessment was 13 Alcohol level 221.6 on admission Hemoglobin was 8 this morning and seems to be around patient's baseline Lactic acid downtrended Hemoglobin dropped to 6.3 Plan: Will transfuse 2 units of PRBC, will need to be warmed as patient did have cold antibodies as per lab Rocephin 1 g Librium 50 mg 3 times daily Octreotide drip Protonix 40 mg twice daily CIWA protocol GI consulted, appreciate commendations Underwent EGD yesterday with gastroenterology, was found to have grade 2 esophageal varices, banded x 3, esophageal ulcers, gastritis with hemorrhage Gastroenterology following closely, recommended to have colonoscopy before discharge Started on D5 NS at 150 cc/h #Decompensated liver cirrhosis #Coagulopathy #Hyperbilirubinemia #Hyperammonemia #Hx of cirrhosis Patient came in with INR of 1.5, T. bili of 1.6, and ammonia levels of 100 This is most likely secondary to cirrhosis secondary to alcohol use disorder Child-Ham score 6 points indicating child class C MELD-Na score 13 points indicating less than 2% mortality in the next 90 days. Plan: Will start lactulose 20 mg 3 times daily Will continue to monitor #Leukocytosis WBC 3.8 Most likely reactive Plan: Will continue to monitor for now #Hypomagnesemia Magnesium 1.4 Plan: 4 g magnesium x 1 Continue to replete as necessary Disposition: Patient admitted to [facility] for alcohol withdrawal and GI bleed. Diet: CLD GI prophylaxis: protonix DVT prophylaxis: SCDs Code: Full Case disclosed with Attending Dr. Stevie Cummings PGY1 Attending Provider Attestation/Addendum I attest that I was physically present for the evaluation, physical examination, lab and imaging review of the patient with the residents. I discussed the case with the residents and agree with the findings and plans of care as documented above. At bedside today, patient appears sleepy but wakes up easily on calling and is able to answer questions and follow commands appropriately. He is oriented x 3. CIWA score this morning was 15, continues to be on Librium 50 mg 3 times daily along with CIWA protocol. Currently on clear liquid diet. Started on D5 NS at 150 cc/h. Continues to be on thiamine and folate. Vital signs are stable this morning, lactate level has come back to normal level. Noted to have magnesium of 1.4, repleted accordingly. Bilirubin is still high 2.3 today, but AST and ALP down trended slightly. Cathy Hubbard MD
[2025-03-29] MEDS: DEXTROSE 5%-NS 1,000 ML 150 ML IV ×2 (11:52→18:43)
[2025-03-29 12:06] LABS: HIV (1&2) Antibody Rapid Non-Reactive
[2025-03-29 15:59] LABS: Hematocrit 21.5 % (41.0-53.0)
[2025-03-29 16:12] LABS: Hemoglobin 7.2 g/dL (13.5-16.0)
[2025-03-30] VITALS (8 sets, daily range): BP systolic 105–123; BP diastolic 76–82; PULSE 74–93; RESP 15–99; TEMP 36.4–37; O2SAT 98–115; BMI 28.3
[2025-03-30] MEDS: DEXTROSE 5%-NS 1,000 ML 150 ML IV (01:49)
[2025-03-30] MEDS: chlordiazePOXIDE HCl 25 MG CAPSULE 50 MG PO ×2 (05:01→20:03)
[2025-03-30] MEDS: LACTULOSE SYRUP 20 GM/30 ML UDC PO (05:01)
[2025-03-30 06:56] LABS: Alanine Aminotransferase 11 U/L (10-49); Albumin, Serum 3.2 gm/dL (3.5-5.0); Albumin/Globulin Ratio 1.1 (1.2-2.2); Alkaline Phosphatase 114 U/L (46-116); Anion Gap 10 (7-16); Aspartate Amino Transferase 67 U/L (0-34); BUN/Creatinine Ratio 7 Ratio (12-20); Bilirubin,Total 2.2 mg/dL (0.3-1.2); Blood Urea Nitrogen < 5 mg/dL (9-23); Calcium 7.5 mg/dL (8.3-10.6); Calcium (Corrected) 8.1 mg/dL (8.5-10.1); Carbon Dioxide 24.3 mMol/L (20.0-31.0); Chloride 105 mMol/L (98-107); Creatinine (Component) 0.7 mg/dL (0.6-1.3); Estimated Creatinine Clearance 130.4 mL/min (>60); Globulin 2.8 gm/dL (2.3-3.5); Glucose 141 mg/dL (74-106); Magnesium 1.3 mg/dL (1.6-2.6); Osmolality,Calculated 276 (275-295); Potassium 3.4 mMol/L (3.4-5.1); Sodium 139 mMol/L (136-145); eGFR > 60 See Note
[2025-03-30 06:57] LABS: Basophils # (Auto) 0.1 Thou/mm3 (0.0-0.2); Basophils % (Auto) 1 % (0-2.5); Eosinophils # (Auto) 0.2 Thou/mm3 (0.0-0.5); Eosinophils % (Auto) 6 % (0-10); Hematocrit 23.3 % (41.0-53.0); Immature Granulocytes % (Auto) 0 % (0-0); Immature Granulocytes Auto 0.01 Thou/mm3 (0.00-0.00); Lymphocytes # (Auto) 0.5 Thou/mm3 (1.0-4.8); Lymphocytes % (Auto) 14 % (10-50); Mean Corpuscular Hemoglobin 27.8 pg (25.0-35.0); Mean Corpuscular Volume 84 fL (80-100); Monocytes # (Auto) 0.3 Thou/mm3 (0.0-0.8); Monocytes % (Auto) 10 % (0-12); Neutrophils # (Auto) 2.4 Thou/mm3 (1.8-7.7); Neutrophils % (Auto) 69 % (37-80); Nucleated Red Blood Cell % 0 /100 WBC (0); RDW Standard Deviation 53.7 fL (35.1-43.9); Red Blood Count 2.77 Miln/mm3 (4.50-5.90); White Blood Count 3.5 Thou/mm3 (3.8-10.6)
[2025-03-30 07:09] LABS: Hemoglobin 7.7 g/dL (13.5-16.0)
[2025-03-30 07:10] LABS: Platelet Count 30 Thou/mm3 (140-440)
[2025-03-30 07:32] LABS: Slide Review Platelets confirmed
[2025-03-30] MEDS: FOLIC ACID 1 MG TABLET PO (08:00)
[2025-03-30] MEDS: CALCIUM CARBONATE 600 MG TABLET PO (08:00)
[2025-03-30] MEDS: POTASSIUM CHLORIDE 20 mEq TABCR 40 MEQ PO (08:00)
[2025-03-30] MEDS: THIAMINE 100 MG TABLET PO (08:00)
[2025-03-30] MEDS: Magnesium Sulfate 4 GM Ivpb 4 GM/50 ML BAG IV (08:01)
[2025-03-30] MEDS: cefTRIAXone/D5w 1gm IV premix 1 GM/50 ML BAG IV (08:01)
[2025-03-30] MEDS: PANTOPRAZOLE INJ 40 MG VIAL IVP ×2 (08:01→20:02)
--- NOTE | 2025-03-30 10:13 | PD.RESPRO ---
Documentation for date of: 03/30/25 Subjective Subjective Interval history: Patient seen and examined at bedside this morning. No acute overnight events. Patient's hemoglobin did go up to 7.7 today after 2 units of PRBC was transfused yesterday. Patient has not been having any more bloody vomiting since she came in. Patient's tremors are also improving and his CIWA score was also improving with the latest 1 being CIWA score of 2. Having multiple episodes of diarrhea likely due to lactulose. Otherwise we will continue current management and pending possible colonoscopy prior to discharge. Exam Vital Signs Temp Pulse Resp BP Pulse Ox O2 Del Method O2 Flow Rate 97.5 F 93 17 116/76 100 Nasal Cannula 1 03/30/25 08:00 03/30/25 08:02 03/30/25 08:02 03/30/25 08:00 03/30/25 08:00 03/30/25 08:00 03/30/25 08:02 Narrative Exam General: A/O x3, no acute distress, disheveled Eyes: PERRL, EOMI. Icteric, vision grossly intact. Ears: No ear pain, no ear discharge, Hearing grossly intact. Nose: No nasal discharge. Mouth/Throat: Moist mucous membranes, no redness, no lesions. Neck: Neck supple, non-tender, no cervical lymphadenopathy. Lungs: Clear DIONNA to auscultation and percussion, No accessory muscle use. Cardio: Normal S1/S2, regular rhythm, no murmurs, no JVD Abdomen: Soft, non-tender, no palpable masses, peristalsis present, no guarding or rebound. Extremities: Symmetrical, R Hand deformity due to trauma, UE tremors improving, no peripheral edema , non-tender, peripheral pulses presents. Skin: No rashes, multiple plaque like lesions throught out body, warm to touch. Neuro: No focal neurological deficits. motor and sensory intact Psych: Cooperative, appropriate mood and effect. Objective Labs 03/30/25 05:38 03/30/25 05:38 Labs: Laboratory Results - last 24 hr 03/28/25 03/29/25 03/29/25 05:15 05:30 15:47 WBC RBC Hgb 7.2 L Hct 21.5 L* MCV MCH MCHC RDW Std Deviation Plt Count Neut % (Auto) Lymph % (Auto) [place] % (Auto) Eos % (Auto) Baso % (Auto) Neut # (Auto) Lymph # (Auto) [place] # (Auto) Eos # (Auto) Baso # (Auto) Immature Gran # (Auto) Absolute Nucleated RBC Immature Gran % Nucleated RBC % Sodium Potassium Chloride Carbon Dioxide Anion Gap BUN Creatinine Estim Creat Clear Calc eGFR BUN/Creatinine Ratio Glucose Calculated Osmolality Calcium Corrected Calcium Magnesium Total Bilirubin AST ALT Alkaline Phosphatase Total Protein Albumin Globulin Albumin/Globulin Ratio HIV 1&2 Antibody Rapid Non-Reactive Misc Test Result Blood Type O Positive Antibody Screen NEGATIVE Crossmatch See Detail Blood Bank Wristband ID Yes 03/30/25 05:38 WBC 3.5 L RBC 2.77 L Hgb 7.7 L Hct 23.3 L MCV 84 MCH 27.8 MCHC 33.0 RDW Std Deviation 53.7 H Plt Count 30 L D Neut % (Auto) 69 Lymph % (Auto) 14 [place] % (Auto) 10 Eos % (Auto) 6 Baso % (Auto) 1 Neut # (Auto) 2.4 Lymph # (Auto) 0.5 L [place] # (Auto) 0.3 Eos # (Auto) 0.2 Baso # (Auto) 0.1 Immature Gran # (Auto) 0.01 H Absolute Nucleated RBC 0.00 Immature Gran % 0 Nucleated RBC % 0 Sodium 139 Potassium 3.4 Chloride 105 Carbon Dioxide 24.3 Anion Gap 10 BUN < 5 L Creatinine 0.7 Estim Creat Clear Calc 130.4 eGFR > 60 BUN/Creatinine Ratio 7 L Glucose 141 H Calculated Osmolality 276 Calcium 7.5 L Corrected Calcium 8.1 L Magnesium 1.3 L Total Bilirubin 2.2 H AST 67 H ALT 11 Alkaline Phosphatase 114 Total Protein 6.0 Albumin 3.2 L Globulin 2.8 Albumin/Globulin Ratio 1.1 L HIV 1&2 Antibody Rapid Misc Test Result Platelets confirmed Blood Type Antibody Screen Crossmatch Blood Bank Wristband ID Quality Measures Quality Measures none Assessment & Plan Assessment Current Active Medications: Generic Name Dose Route Start Last Admin Trade Name Freq PRN Reason Stop Dose Admin Acetaminophen 650 mg 03/28/25 07:44 Acetaminophen 325 Mg Tablet PO 04/27/25 07:43 Q6H PRN pain 1-3 OR Fever >100.4 Hydrocodone Bitart/Acetaminophen 1 tab 03/28/25 07:44 Hydrocodone/Apap 5/325 Tablet PO 04/02/25 07:43 Q4HR PRN PAIN SCALE 4-10(Mod-Sev Chlordiazepoxide HCl 50 mg 03/30/25 09:00 03/30/25 09:13 Chlordiazepoxide Hcl 25 Mg Capsule PO 04/04/25 08:59 Not Given BID BRANDI Folic Acid 1 mg 03/30/25 09:00 03/30/25 08:00 Folic Acid 1 Mg Tablet PO 04/29/25 08:59 1 mg QDAY BRANDI Administration Protocol Octreotide Acetate 1,000 mcg/ 102 mls @ 5.1 mls/hr 03/28/25 07:17 03/29/25 23:49 Sodium Chloride IV 04/02/25 07:17 50 mcg/hr .Q20H BRANDI 5.1 mls/hr Administration Protocol 50 MCG/HR Ceftriaxone Sodium/Dextrose 1 gm in 50 mls @ 100 mls/hr 03/28/25 08:30 03/30/25 08:01 Rocephin/D5w 1gm Iv Premix IV 04/04/25 08:29 100 mls/hr QDAY BRANDI Administration Magnesium Sulfate 4 gm in 50 mls @ 12.5 mls/hr 03/30/25 07:36 03/30/25 08:01 Magnesium Sulfate Ivpb IV 03/30/25 11:35 12.5 mls/hr X1 ONE Administration Lactulose 20 gm 03/30/25 09:00 03/30/25 09:13 Lactulose Syrup 20 Gm/30 Ml Udc PO 04/29/25 08:59 Not Given QDAY BRANDI Protocol Lorazepam 0.5 mg 03/28/25 07:44 03/28/25 17:02 Lorazepam 2 Mg/Ml Vial IV 04/02/25 07:43 0.5 mg Q2HR PRN Administration CIWA SCORE 8-13 Lorazepam 1 mg 03/28/25 07:44 03/29/25 08:05 Lorazepam 2 Mg/Ml Vial IV 04/02/25 07:43 1 mg Q2HR PRN Administration CIWA SCORE 14-19 Lorazepam 2 mg 03/28/25 07:44 Lorazepam 2 Mg/Ml Vial IV 04/02/25 07:43 Q2HR PRN CIWA SCORE 20-25 Lorazepam 2 mg 03/28/25 07:44 Lorazepam 2 Mg/Ml Vial IVP X1 PRN Breakthrough Agitation Ondansetron HCl 4 mg 03/28/25 07:44 03/29/25 08:06 Ondansetron Inj 2 Mg/Ml Inj 2 Ml IVP 04/27/25 07:43 4 mg Q6H PRN Administration NAUSEA OR VOMITING Protocol Pantoprazole Sodium 40 mg 03/28/25 21:00 03/30/25 08:01 Pantoprazole Inj 40 Mg Vial IVP 04/27/25 20:59 40 mg BID BRANDI Administration Thiamine HCl 100 mg 03/30/25 09:00 03/30/25 08:00 Thiamine 100 Mg Tablet PO 04/29/25 08:59 100 mg QDAY BRANDI Administration Protocol Plan 44-year-old male with past medical history of esophageal varices s/p banding, portal hypertension, alcohol associated cirrhosis, hypertensive portal gastropathy, chronic alcohol use, and frequent hospital admissions or ER visits due to alcohol withdrawal or intoxication was admitted to the hospital on 03/28/2025 due to GI bleed likely secondary to esophageal varices and alcohol withdrawal. #Grade 2 esophageal varices s/p banding #Esophageal ulcers #Gastritis with hemorrhage #GI bleeding #Hematemesis #Acute blood loss anemia #Lactic acidosis, resolved #Hx of esophageal varices s/p banding #Hx of alcohol associated cirrhosis #Hx of alcohol abuse Patient came in with complaints of blood in his vomiting that started on night of admission at 2 AM Patient drinks around 3 cans of 36 ounces of beer every day Last drink was night prior to admission at 8 PM CIWA score 2 today AM Alcohol level 221.6 on admission Hemoglobin of 8 is around patient's baseline Lactic acid downtrended Hemoglobin today 7.7 Plan: Rocephin 1 g Titrating down to Librium 50 mg twice daily Octreotide drip Protonix 40 mg twice daily CIWA protocol GI consulted, appreciate commendations Underwent EGD yesterday with gastroenterology, was found to have grade 2 esophageal varices, banded x 3, esophageal ulcers, gastritis with hemorrhage Gastroenterology following closely, recommended to have colonoscopy before discharge #Decompensated liver cirrhosis #Coagulopathy #Hyperbilirubinemia #Hyperammonemia #Hx of cirrhosis Patient came in with INR of 1.5, T. bili of 1.6, and ammonia levels of 100 This is most likely secondary to cirrhosis secondary to alcohol use disorder Child-Ham score 6 points indicating child class C MELD-Na score 13 points indicating less than 2% mortality in the next 90 days. Plan: Will decrease lactulose 20 mg daily due to diarrhea Will continue to monitor #Leukocytopenia WBC 3.8 intially, 3.5 today Most likely reactive Plan: Will continue to monitor for now #Hypomagnesemia Magnesium 1.3 Plan: 4 g magnesium x 1 Continue to replete as necessary Disposition: Pending colonoscopy prior to DC and Octeotride drip for 5 days. Diet: CLD GI prophylaxis: protonix DVT prophylaxis: SCDs Code: Full Case disclosed with Attending Dr. Stevie Cummings PGY1 Attending Provider Attestation/Addendum I attest that I was physically present for the evaluation, physical examination, lab and imaging review of the patient with the residents. I discussed the case with the residents and agree with the findings and plans of care as documented above. At bedside today, patient is more alert and awake, appears comfortable and denies any complaints. Vital signs are stable. This morning was 1. We will decrease the dose of Librium from 3 times daily to twice daily. Repleted magnesium and potassium. Hemoglobin is stable at 7.7. Liver panel is slowly improving. Continues to be on octreotide drip, Protonix and CIWA protocol. Cathy Hubbard MD
--- NOTE | 2025-03-30 14:46 | PC.SS ---
Rounding: on Octreotide Drip until , will DC home when ready
--- NOTE | 2025-03-30 15:27 | PD.IMPROG ---
Documentation for date of: 03/30/25 Subjective Subjective Interval history: Hemoglobin hematocrit 27.7 and 23.7 Exam Vital Signs Temp Pulse Resp BP Pulse Ox O2 Del Method O2 Flow Rate 98.1 F 85 15 116/76 115 H Room Air 1 03/30/25 12:00 03/30/25 12:00 03/30/25 12:00 03/30/25 08:00 03/30/25 12:00 03/30/25 12:00 03/30/25 08:02 Objective Labs 03/30/25 05:38 03/30/25 05:38 Labs: Laboratory Results - last 24 hr 03/28/25 03/29/25 03/30/25 05:15 15:47 05:38 WBC 3.5 L RBC 2.77 L Hgb 7.2 L 7.7 L Hct 21.5 L* 23.3 L MCV 84 MCH 27.8 MCHC 33.0 RDW Std Deviation 53.7 H Plt Count 30 L D Neut % (Auto) 69 Lymph % (Auto) 14 [place] % (Auto) 10 Eos % (Auto) 6 Baso % (Auto) 1 Neut # (Auto) 2.4 Lymph # (Auto) 0.5 L [place] # (Auto) 0.3 Eos # (Auto) 0.2 Baso # (Auto) 0.1 Immature Gran # (Auto) 0.01 H Absolute Nucleated RBC 0.00 Immature Gran % 0 Nucleated RBC % 0 Sodium 139 Potassium 3.4 Chloride 105 Carbon Dioxide 24.3 Anion Gap 10 BUN < 5 L Creatinine 0.7 Estim Creat Clear Calc 130.4 eGFR > 60 BUN/Creatinine Ratio 7 L Glucose 141 H Calculated Osmolality 276 Calcium 7.5 L Corrected Calcium 8.1 L Magnesium 1.3 L Total Bilirubin 2.2 H AST 67 H ALT 11 Alkaline Phosphatase 114 Total Protein 6.0 Albumin 3.2 L Globulin 2.8 Albumin/Globulin Ratio 1.1 L Misc Test Result Platelets confirmed Blood Type O Positive Antibody Screen NEGATIVE Crossmatch See Detail Blood Bank Wristband ID Yes Impressions Impression: Variceal band ligation Continue to monitor CBC Continue octreotide infusion Assessment & Plan A&P Narrative # GI bleed in the form of hematemesis patient now having a lot of melanotic stools Plan Continue octreotide infusion Continue IV Protonix Serial CBC Consent obtained for fiberoptic esophagogastroduodenoscopy with possible therapeutic intervention under intravenous moderate sedation scheduled for today Will follow the patient Counseled the patient on complete abstinence of alcohol Thank you very much for the opportunity to participate in the care of this patient Time Spent With Patient Time: Total time spent is greater than 50% in coordination of care (as documented) at patient's floor/unit and/or counseling patient:
[2025-03-30] MEDS: OCTREOTIDE ACET INJ 1,000 MCG in SODIUM CHLORIDE 0.9% 100 ML 5.1 MCG IV (19:59)
[2025-03-31] VITALS (10 sets, daily range): BP systolic 103–119; BP diastolic 60–84; PULSE 68–108; RESP 17–98; TEMP 36.3–37.1; O2SAT 96–99; BMI 28.3
[2025-03-31 00:24] LABS: Hepatitis A Antibody IgM Non Reactive (Non React); Hepatitis B Core Antibody IgM Non Reactive (Non React); Hepatitis B Surface Antigen Non Reactive (Non React); Hepatitis C Antibody Non Reactive (Non React)
[2025-03-31 05:40] LABS: Basophils % (Auto) 1 % (0-2.5); Eosinophils # (Auto) 0.3 Thou/mm3 (0.0-0.5); Eosinophils % (Auto) 6 % (0-10); Immature Granulocytes % (Auto) 0 % (0-0); Immature Granulocytes Auto 0.01 Thou/mm3 (0.00-0.00); Lymphocytes # (Auto) 0.6 Thou/mm3 (1.0-4.8); Lymphocytes % (Auto) 14 % (10-50); Mean Corpuscular HGB Conc 32.8 g/dl (31.0-37.0); Mean Corpuscular Hemoglobin 28.2 pg (25.0-35.0); Mean Corpuscular Volume 86 fL (80-100); Monocytes # (Auto) 0.4 Thou/mm3 (0.0-0.8); Monocytes % (Auto) 10 % (0-12); Neutrophils # (Auto) 2.9 Thou/mm3 (1.8-7.7); Neutrophils % (Auto) 69 % (37-80); Nucleated Red Blood Cell % 0 /100 WBC (0); RDW Standard Deviation 56.4 fL (35.1-43.9); Red Blood Count 2.91 Miln/mm3 (4.50-5.90); White Blood Count 4.1 Thou/mm3 (3.8-10.6)
[2025-03-31 06:08] LABS: Alanine Aminotransferase 14 U/L (10-49); Albumin, Serum 3.4 gm/dL (3.5-5.0); Alkaline Phosphatase 122 U/L (46-116); Anion Gap 10 (7-16); Aspartate Amino Transferase 66 U/L (0-34); BUN/Creatinine Ratio 7 Ratio (12-20); Bilirubin,Total 2.3 mg/dL (0.3-1.2); Blood Urea Nitrogen < 5 mg/dL (9-23); Calcium (Corrected) 9.5 mg/dL (8.5-10.1); Carbon Dioxide 24.2 mMol/L (20.0-31.0); Chloride 100 mMol/L (98-107); Creatinine (Component) 0.7 mg/dL (0.6-1.3); Estimated Creatinine Clearance 130.4 mL/min (>60); Globulin 3.4 gm/dL (2.3-3.5); Glucose 112 mg/dL (74-106); Magnesium 1.5 mg/dL (1.6-2.6); Osmolality,Calculated 266 (275-295); Potassium 3.5 mMol/L (3.4-5.1); Sodium 134 mMol/L (136-145); Total Protein 6.8 gm/dL (5.7-8.2); eGFR > 60 See Note
[2025-03-31 06:13] LABS: Hemoglobin 8.2 g/dL (13.5-16.0); Platelet Count 35 Thou/mm3 (140-440)
[2025-03-31] MEDS: THIAMINE 100 MG TABLET PO (08:22)
[2025-03-31] MEDS: chlordiazePOXIDE HCl 25 MG CAPSULE 50 MG PO (08:22)
[2025-03-31] MEDS: Magnesium Sulfate 4 GM Ivpb 4 GM/50 ML BAG IV (08:23)
[2025-03-31] MEDS: POTASSIUM CHLORIDE 20 mEq TABCR 40 MEQ PO (08:23)
[2025-03-31] MEDS: LACTULOSE SYRUP 20 GM/30 ML UDC PO (08:23)
[2025-03-31] MEDS: PANTOPRAZOLE INJ 40 MG VIAL IVP ×2 (08:23→20:08)
[2025-03-31] MEDS: FOLIC ACID 1 MG TABLET PO (08:23)
[2025-03-31] MEDS: cefTRIAXone/D5w 1gm IV premix 1 GM/50 ML BAG IV (08:23)
--- NOTE | 2025-03-31 08:46 | ESPR_ITS ---
<Statement entered by Elmira Lay MD - 04/01/25 07:56> 44-year-old with history of alcohol use disorder with subsequent end-stage liver disease multiple sequelae's including esophageal varices, hypertensive portal gastropathy who presented with during course of hospitalization, patient underwent EGD multiple esophageal varices status post banding X3 and currently on octreotide therapy. Furthermore, patient also has decompensated liver disease and alcohol withdrawal for which patient is currently on CIWA. Per gastroenterology, continue octreotide for a total of 5 days for which today is day 3. I reviewed above note and agree with findings and plans. I have also personally examined the patient with medicine team and went over assessment and plan with medical team including internet marketing consultant and resident physician. Documentation for date of: 03/31/25 Subjective Subjective Interval history: Patient was seen examined at bedside this morning. No acute overnight events. Hemoglobin today has been stable at 8.2 and no active signs of bleeding. Patient states he feels well and has not had any visual or auditory hallucinations. CIWA score overnight was 0 and patient has not gotten any extra doses of lorazepam. He has no other complaints this time other than that he would like to be more solid diet, but is still pending possible colonoscopy prior to discharge. Exam Vital Signs Temp Pulse Resp BP Pulse Ox O2 Del Method O2 Flow Rate 98.7 F 68 18 103/60 96 Room Air 1 03/31/25 04:00 03/31/25 04:00 03/31/25 04:00 03/31/25 04:00 03/31/25 04:00 03/31/25 04:00 03/30/25 08:02 Narrative Exam General: A/O x3, no acute distress, disheveled Eyes: PERRL, EOMI. Icteric, vision grossly intact. Ears: No ear pain, no ear discharge, Hearing grossly intact. Nose: No nasal discharge. Mouth/Throat: Moist mucous membranes, no redness, no lesions. Neck: Neck supple, non-tender, no cervical lymphadenopathy. Lungs: Clear DIONNA to auscultation and percussion, No accessory muscle use. Cardio: Normal S1/S2, regular rhythm, no murmurs, no JVD Abdomen: Soft, non-tender, no palpable masses, peristalsis present, no guarding or rebound. Extremities: Symmetrical, R Hand deformity due to trauma, UE tremors not visualized today, no peripheral edema , non-tender, peripheral pulses presents. Skin: No rashes, multiple plaque like lesions throught out body, warm to touch. Neuro: No focal neurological deficits. motor and sensory intact Psych: Cooperative, appropriate mood and effect. Objective Labs 03/31/25 04:58 03/31/25 04:58 Labs: Laboratory Results - last 24 hr 03/29/25 03/31/25 05:30 04:58 WBC 4.1 RBC 2.91 L Hgb 8.2 L Hct 25.0 L MCV 86 MCH 28.2 MCHC 32.8 RDW Std Deviation 56.4 H Plt Count 35 L Neut % (Auto) 69 Lymph % (Auto) 14 [place] % (Auto) 10 Eos % (Auto) 6 Baso % (Auto) 1 Neut # (Auto) 2.9 Lymph # (Auto) 0.6 L [place] # (Auto) 0.4 Eos # (Auto) 0.3 Baso # (Auto) 0.0 Immature Gran # (Auto) 0.01 H Absolute Nucleated RBC 0.00 Immature Gran % 0 Nucleated RBC % 0 Sodium 134 L Potassium 3.5 Chloride 100 Carbon Dioxide 24.2 Anion Gap 10 BUN < 5 L Creatinine 0.7 Estim Creat Clear Calc 130.4 eGFR > 60 BUN/Creatinine Ratio 7 L Glucose 112 H Calculated Osmolality 266 L Calcium 9.0 D Corrected Calcium 9.5 Magnesium 1.5 L Total Bilirubin 2.3 H AST 66 H ALT 14 Alkaline Phosphatase 122 H Total Protein 6.8 Albumin 3.4 L Globulin 3.4 Albumin/Globulin Ratio 1.0 L Hepatitis A IgM Ab Non Reactive Hep Bs Antigen Non Reactive Hep B Core IgM Ab Non Reactive Hepatitis C Antibody Non Reactive Quality Measures Quality Measures none Assessment & Plan Assessment Current Active Medications: Generic Name Dose Route Start Last Admin Trade Name Freq PRN Reason Stop Dose Admin Acetaminophen 650 mg 03/28/25 07:44 Acetaminophen 325 Mg Tablet PO 04/27/25 07:43 Q6H PRN pain 1-3 OR Fever >100.4 Hydrocodone Bitart/Acetaminophen 1 tab 03/28/25 07:44 Hydrocodone/Apap 5/325 Tablet PO 04/02/25 07:43 Q4HR PRN PAIN SCALE 4-10(Mod-Sev Chlordiazepoxide HCl 50 mg 03/30/25 09:00 03/31/25 08:22 Chlordiazepoxide Hcl 25 Mg Capsule PO 04/04/25 08:59 50 mg BID BRANDI Administration Folic Acid 1 mg 03/30/25 09:00 03/31/25 08:23 Folic Acid 1 Mg Tablet PO 04/29/25 08:59 1 mg QDAY BRANDI Administration Protocol Octreotide Acetate 1,000 mcg/ 102 mls @ 5.1 mls/hr 03/28/25 07:17 03/30/25 19:59 Sodium Chloride IV 04/02/25 07:17 50 mcg/hr .Q20H BRANDI 5.1 mls/hr Administration Protocol 50 MCG/HR Ceftriaxone Sodium/Dextrose 1 gm in 50 mls @ 100 mls/hr 03/28/25 08:30 03/31/25 08:23 Rocephin/D5w 1gm Iv Premix IV 04/04/25 08:29 100 mls/hr QDAY BRANDI Administration Magnesium Sulfate 4 gm in 50 mls @ 12.5 mls/hr 03/31/25 07:38 03/31/25 08:23 Magnesium Sulfate Ivpb IV 03/31/25 11:37 12.5 mls/hr X1 ONE Administration Lactulose 20 gm 03/30/25 09:00 03/31/25 08:23 Lactulose Syrup 20 Gm/30 Ml Udc PO 04/29/25 08:59 20 gm QDAY BRANDI Administration Protocol Lorazepam 0.5 mg 03/28/25 07:44 03/28/25 17:02 Lorazepam 2 Mg/Ml Vial IV 04/02/25 07:43 0.5 mg Q2HR PRN Administration CIWA SCORE 8-13 Lorazepam 1 mg 03/28/25 07:44 03/29/25 08:05 Lorazepam 2 Mg/Ml Vial IV 04/02/25 07:43 1 mg Q2HR PRN Administration CIWA SCORE 14-19 Lorazepam 2 mg 03/28/25 07:44 Lorazepam 2 Mg/Ml Vial IV 04/02/25 07:43 Q2HR PRN CIWA SCORE 20-25 Lorazepam 2 mg 03/28/25 07:44 Lorazepam 2 Mg/Ml Vial IVP X1 PRN Breakthrough Agitation Ondansetron HCl 4 mg 03/28/25 07:44 03/29/25 08:06 Ondansetron Inj 2 Mg/Ml Inj 2 Ml IVP 06/23/25 07:43 4 mg Q6H PRN Administration NAUSEA OR VOMITING Protocol Pantoprazole Sodium 40 mg 03/28/25 21:00 03/31/25 08:23 Pantoprazole Inj 40 Mg Vial IVP 04/27/25 20:59 40 mg BID BRANDI Administration Thiamine HCl 100 mg 03/30/25 09:00 03/31/25 08:22 Thiamine 100 Mg Tablet PO 04/29/25 08:59 100 mg QDAY BRANDI Administration Protocol Plan 44-year-old male with past medical history of esophageal varices s/p banding, portal hypertension, alcohol associated cirrhosis, hypertensive portal gastropathy, chronic alcohol use, and frequent hospital admissions or ER visits due to alcohol withdrawal or intoxication was admitted to the hospital on 03/28/2025 due to GI bleed likely secondary to esophageal varices and alcohol withdrawal. #Grade 2 esophageal varices s/p banding #Esophageal ulcers #Gastritis with hemorrhage #GI bleeding #Hematemesis #Acute blood loss anemia #Lactic acidosis, resolved #Hx of esophageal varices s/p banding #Hx of alcohol associated cirrhosis #Hx of alcohol abuse Patient came in with complaints of blood in his vomiting that started on night of admission at 2 AM Patient drinks around 3 cans of 36 ounces of beer every day Last drink was night prior to admission at 8 PM CIWA score 0 today AM Alcohol level 221.6 on admission Hemoglobin of 8 is around patient's baseline Lactic acid downtrended Hemoglobin today 8.2 Plan: Discontinued Rocephin 1 g Titrating down to Librium 50 mg qday Octreotide drip Protonix 40 mg twice daily CIWA protocol GI consulted, appreciate commendations Underwent EGD yesterday with gastroenterology, was found to have grade 2 esophageal varices, banded x 3, esophageal ulcers, gastritis with hemorrhage Gastroenterology following closely, recommended to have colonoscopy before discharge #Decompensated liver cirrhosis #Coagulopathy #Hyperbilirubinemia #Hyperammonemia #Hx of cirrhosis Patient came in with INR of 1.5, T. bili of 1.6, and ammonia levels of 100 This is most likely secondary to cirrhosis secondary to alcohol use disorder Child-Ham score 6 points indicating child class C MELD-Na score 13 points indicating less than 2% mortality in the next 90 days. Plan: Will continue lactulose 20 mg daily due to diarrhea Will continue to monitor #Leukocytopenia WBC 3.8 intially, 4.1 today Most likely reactive Plan: Will continue to monitor for now #Hypomagnesemia Magnesium 1.5 Plan: 4 g magnesium x 1 Continue to replete as necessary Disposition: Pending colonoscopy prior to DC and Octeotride drip for 5 days. Diet: CLD GI prophylaxis: protonix DVT prophylaxis: SCDs Code: Full Case disclosed with Attending Dr. Rosanne Cummings PGY1
[2025-03-31 09:08] LABS: Slide Review Platelets confirmed
--- NOTE | 2025-03-31 10:12 | PC.SS ---
Patient Jose Wells is a 44 Year old male admitted for GI Bleed and Alcohol Withdrawal. SS met with patient at bedside to discuss discharge plan and verify demographic information. Patient reports he stays at the [facility] in [place]. prior to admission patient did not utilize any source of DME to assist with ambulation. Patient is able to complete all ADL's independently. Surrogate decision maker is his friend, Amparo Louelos, [phone]. Choice of pharmacy is [facility]. PCP is Cezar Adams. SS inquired about ETOH resources, patient refused resources, he reported he drinks two tall cans a day, 160z. At time of discharge patient will return back to the [facility]. SS will need to provide transportation. Discharge plan: [facility] in [place] Next of kin, Friend, Amparo Pennington PCP:Cezar Adams
--- NOTE | 2025-03-31 11:31 | PC.SS ---
SS follow up note; Octreotide drip until 04-02. Patient will discharge back to [facility] when medically cleared.
[2025-03-31] MEDS: OCTREOTIDE ACET INJ 1,000 MCG in SODIUM CHLORIDE 0.9% 100 ML 5.1 MCG IV (16:47)
--- NOTE | 2025-03-31 19:40 | PD.IMPROG ---
Documentation for date of: 03/31/25 Subjective Subjective Interval history: Patient evaluated Hemoglobin hematocrit 8.2 and 25.0 Exam Vital Signs Temp Pulse Resp BP Pulse Ox O2 Del Method O2 Flow Rate 97.4 F 78 18 109/75 99 Room Air 1 03/31/25 16:00 03/31/25 16:00 03/31/25 16:00 03/31/25 16:00 03/31/25 16:00 03/31/25 16:00 03/30/25 08:02 Objective Labs 03/31/25 04:58 03/31/25 04:58 Labs: Laboratory Results - last 24 hr 03/29/25 03/31/25 05:30 04:58 WBC 4.1 RBC 2.91 L Hgb 8.2 L Hct 25.0 L MCV 86 MCH 28.2 MCHC 32.8 RDW Std Deviation 56.4 H Plt Count 35 L Neut % (Auto) 69 Lymph % (Auto) 14 [place] % (Auto) 10 Eos % (Auto) 6 Baso % (Auto) 1 Neut # (Auto) 2.9 Lymph # (Auto) 0.6 L [place] # (Auto) 0.4 Eos # (Auto) 0.3 Baso # (Auto) 0.0 Immature Gran # (Auto) 0.01 H Absolute Nucleated RBC 0.00 Immature Gran % 0 Nucleated RBC % 0 Sodium 134 L Potassium 3.5 Chloride 100 Carbon Dioxide 24.2 Anion Gap 10 BUN < 5 L Creatinine 0.7 Estim Creat Clear Calc 130.4 eGFR > 60 BUN/Creatinine Ratio 7 L Glucose 112 H Calculated Osmolality 266 L Calcium 9.0 D Corrected Calcium 9.5 Magnesium 1.5 L Total Bilirubin 2.3 H AST 66 H ALT 14 Alkaline Phosphatase 122 H Total Protein 6.8 Albumin 3.4 L Globulin 3.4 Albumin/Globulin Ratio 1.0 L Hepatitis A IgM Ab Non Reactive Hep Bs Antigen Non Reactive Hep B Core IgM Ab Non Reactive Hepatitis C Antibody Non Reactive Misc Test Result Platelets confirmed Impressions Impression: Status post band ligation of the esophageal varices Continue octreotide infusion Assessment & Plan A&P Narrative # GI bleed in the form of hematemesis patient now having a lot of melanotic stools Plan Continue octreotide infusion Continue IV Protonix Serial CBC Consent obtained for fiberoptic esophagogastroduodenoscopy with possible therapeutic intervention under intravenous moderate sedation scheduled for today Will follow the patient Counseled the patient on complete abstinence of alcohol Thank you very much for the opportunity to participate in the care of this patient Time Spent With Patient Time: Total time spent is greater than 50% in coordination of care (as documented) at patient's floor/unit and/or counseling patient:
[2025-04-01] VITALS (9 sets, daily range): BP systolic 94–121; BP diastolic 60–75; PULSE 82–107; RESP 17–96; TEMP 36.4–36.9; O2SAT 92–96; BMI 28.3
[2025-04-01 05:37] LABS: Basophils # (Auto) 0.1 Thou/mm3 (0.0-0.2); Basophils % (Auto) 1 % (0-2.5); Eosinophils # (Auto) 0.3 Thou/mm3 (0.0-0.5); Eosinophils % (Auto) 5 % (0-10); Hematocrit 25.3 % (41.0-53.0); Immature Granulocytes % (Auto) 1 % (0-0); Immature Granulocytes Auto 0.03 Thou/mm3 (0.00-0.00); Lymphocytes # (Auto) 0.5 Thou/mm3 (1.0-4.8); Lymphocytes % (Auto) 10 % (10-50); Mean Corpuscular HGB Conc 32.4 g/dl (31.0-37.0); Mean Corpuscular Hemoglobin 28.1 pg (25.0-35.0); Mean Corpuscular Volume 87 fL (80-100); Monocytes # (Auto) 0.5 Thou/mm3 (0.0-0.8); Monocytes % (Auto) 11 % (0-12); Neutrophils # (Auto) 3.5 Thou/mm3 (1.8-7.7); Neutrophils % (Auto) 72 % (37-80); Nucleated Red Blood Cell % 0 /100 WBC (0); RDW Standard Deviation 58.6 fL (35.1-43.9); Red Blood Count 2.92 Miln/mm3 (4.50-5.90); White Blood Count 4.8 Thou/mm3 (3.8-10.6)
[2025-04-01 05:59] LABS: Alanine Aminotransferase 14 U/L (10-49); Albumin, Serum 3.3 gm/dL (3.5-5.0); Alkaline Phosphatase 123 U/L (46-116); Anion Gap 10 (7-16); Aspartate Amino Transferase 63 U/L (0-34); BUN/Creatinine Ratio 7 Ratio (12-20); Bilirubin,Total 2.2 mg/dL (0.3-1.2); Blood Urea Nitrogen < 5 mg/dL (9-23); Calcium 8.4 mg/dL (8.3-10.6); Carbon Dioxide 23.8 mMol/L (20.0-31.0); Chloride 101 mMol/L (98-107); Creatinine (Component) 0.7 mg/dL (0.6-1.3); Estimated Creatinine Clearance 127.8 mL/min (>60); Globulin 3.2 gm/dL (2.3-3.5); Glucose 115 mg/dL (74-106); Magnesium 1.3 mg/dL (1.6-2.6); Osmolality,Calculated 268 (275-295); Potassium 3.7 mMol/L (3.4-5.1); Sodium 135 mMol/L (136-145); Total Protein 6.5 gm/dL (5.7-8.2); eGFR > 60 See Note
[2025-04-01 06:16] LABS: Hemoglobin 8.2 g/dL (13.5-16.0); Platelet Count 64 Thou/mm3 (140-440)
[2025-04-01 09:10] LABS: Slide Review Platelets confirmed
[2025-04-01] MEDS: PANTOPRAZOLE INJ 40 MG VIAL IVP ×2 (09:29→20:06)
[2025-04-01] MEDS: THIAMINE 100 MG TABLET PO (09:30)
[2025-04-01] MEDS: LACTULOSE SYRUP 20 GM/30 ML UDC PO (09:30)
[2025-04-01] MEDS: FOLIC ACID 1 MG TABLET PO (09:30)
[2025-04-01] MEDS: chlordiazePOXIDE HCl 25 MG CAPSULE 50 MG PO (09:30)
[2025-04-01] MEDS: OCTREOTIDE ACET INJ 1,000 MCG in SODIUM CHLORIDE 0.9% 100 ML 5.1 MCG IV (11:38)
--- NOTE | 2025-04-01 11:41 | ESPR_ITS ---
<Statement entered by Elmira Lay MD - 04/06/25 14:41> I reviewed above note and agree with findings and plans. I have also personally examined the patient with medicine team and went over assessment and plan with medical team including internet marketing assistant and resident physician. Documentation for date of: 04/01/25 Subjective Subjective Interval history: Overnight, no acute events reported. Patient has been on octreotide drip since 03/24/2025 and will end tomorrow. Patient seen and examined at bedside. Patient denies any abdominal pain but does have dizziness on and off. GI recommended a colonoscopy to rule out any other bleeds. Patient is on GoLytely, and is mostly clear, however got report from nurse that there are some streaks of blood when he uses the restroom. Hemoglobin today was 8.2, and repeat H&H was 9.2. Otherwise no other bleeding noted elsewhere. Patient will slightly await colonoscopy tomorrow, anticipate discharge within 48 hours. Patient advised on alcohol cessation. Patient agrees with current course of plan and all questions asked and answered. Exam Vital Signs Temp Pulse Resp BP Pulse Ox O2 Del Method O2 Flow Rate 98.4 F 104 H 18 95/60 96 Room Air 1 04/01/25 07:56 04/01/25 07:56 04/01/25 07:56 04/01/25 07:56 04/01/25 07:56 04/01/25 07:56 03/30/25 08:02 Narrative Exam General Appearance: Patient in no apparent distress, laying comfortably in bed. Disheveled HEENT: NC/AT, no scleral icterus, no conjunctival pallor, MMM Lungs: CTAB, no wheezes or crackles appreciated CVS: RRR, S1/S2 heard, no murmurs or rubs appreciated ABD: Soft, non-tender, non-distended, BS + in all 4 quadrants EXT: Right hand deformity due to trauma, no tremors noted visually in upper extremities, peripheral pulses felt bilaterally SKIN: Skin exam normal without any rashes except for multiple plaque-like lesions throughout body. Neuro: A&O x 3. No gross neurological deficits. Motor and sensory grossly intact in B/L UL and LL. Psych: Appropriate mood and affect Objective Labs 04/01/25 15:16 04/01/25 05:16 Labs: Laboratory Results - last 24 hr 04/01/25 05:16 WBC 4.8 RBC 2.92 L Hgb 8.2 L Hct 25.3 L MCV 87 MCH 28.1 MCHC 32.4 RDW Std Deviation 58.6 H Plt Count 64 L D Neut % (Auto) 72 Lymph % (Auto) 10 [place] % (Auto) 11 Eos % (Auto) 5 Baso % (Auto) 1 Neut # (Auto) 3.5 Lymph # (Auto) 0.5 L [place] # (Auto) 0.5 Eos # (Auto) 0.3 Baso # (Auto) 0.1 Immature Gran # (Auto) 0.03 H Absolute Nucleated RBC 0.00 Immature Gran % 1 H Nucleated RBC % 0 Sodium 135 L Potassium 3.7 Chloride 101 Carbon Dioxide 23.8 Anion Gap 10 BUN < 5 L Creatinine 0.7 Estim Creat Clear Calc 127.8 eGFR > 60 BUN/Creatinine Ratio 7 L Glucose 115 H Calculated Osmolality 268 L Calcium 8.4 Corrected Calcium 9.0 Magnesium 1.3 L Total Bilirubin 2.2 H AST 63 H ALT 14 Alkaline Phosphatase 123 H Total Protein 6.5 Albumin 3.3 L Globulin 3.2 Albumin/Globulin Ratio 1.0 L Misc Test Result Platelets confirmed Quality Measures Quality Measures none Assessment & Plan Assessment Current Active Medications: Generic Name Dose Route Start Last Admin Trade Name Freq PRN Reason Stop Dose Admin Acetaminophen 650 mg 03/28/25 07:44 Acetaminophen 325 Mg Tablet PO 04/27/25 07:43 Q6H PRN pain 1-3 OR Fever >100.4 Hydrocodone Bitart/Acetaminophen 1 tab 03/28/25 07:44 Hydrocodone/Apap 5/325 Tablet PO 04/02/25 07:43 Q4HR PRN PAIN SCALE 4-10(Mod-Sev Chlordiazepoxide HCl 50 mg 04/01/25 09:00 04/01/25 09:30 Chlordiazepoxide Hcl 25 Mg Capsule PO 04/06/25 08:59 50 mg QDAY BRANDI Administration Folic Acid 1 mg 03/30/25 09:00 04/01/25 09:30 Folic Acid 1 Mg Tablet PO 04/29/25 08:59 1 mg QDAY BRANDI Administration Protocol Octreotide Acetate 1,000 mcg/ 102 mls @ 5.1 mls/hr 03/28/25 07:17 04/01/25 11:38 Sodium Chloride IV 04/02/25 07:17 50 mcg/hr .Q20H BRANDI 5.1 mls/hr Administration Protocol 50 MCG/HR Lactulose 20 gm 03/30/25 09:00 04/01/25 09:30 Lactulose Syrup 20 Gm/30 Ml Udc PO 04/29/25 08:59 20 gm QDAY BRANDI Administration Protocol Lorazepam 0.5 mg 03/28/25 07:44 03/28/25 17:02 Lorazepam 2 Mg/Ml Vial IV 04/02/25 07:43 0.5 mg Q2HR PRN Administration CIWA SCORE 8-13 Lorazepam 1 mg 03/28/25 07:44 03/29/25 08:05 Lorazepam 2 Mg/Ml Vial IV 04/02/25 07:43 1 mg Q2HR PRN Administration CIWA SCORE 14-19 Lorazepam 2 mg 03/28/25 07:44 Lorazepam 2 Mg/Ml Vial IV 04/02/25 07:43 Q2HR PRN CIWA SCORE 20-25 Lorazepam 2 mg 03/28/25 07:44 Lorazepam 2 Mg/Ml Vial IVP X1 PRN Breakthrough Agitation Ondansetron HCl 4 mg 03/28/25 07:44 03/29/25 08:06 Ondansetron Inj 2 Mg/Ml Inj 2 Ml IVP 04/27/25 07:43 4 mg Q6H PRN Administration NAUSEA OR VOMITING Protocol Pantoprazole Sodium 40 mg 03/28/25 21:00 04/01/25 09:29 Pantoprazole Inj 40 Mg Vial IVP 04/27/25 20:59 40 mg BID BRANDI Administration Thiamine HCl 100 mg 03/30/25 09:00 04/01/25 09:30 Thiamine 100 Mg Tablet PO 04/29/25 08:59 100 mg QDAY BRANDI Administration Protocol Plan 44-year-old male with past medical history of esophageal varices s/p banding, portal hypertension, alcohol associated cirrhosis, hypertensive portal gastropathy, chronic alcohol use, and frequent hospital admissions or ER visits due to alcohol withdrawal or intoxication was admitted to the hospital on 03/28/2025 due to GI bleed likely secondary to esophageal varices and alcohol withdrawal. #Grade 2 esophageal varices s/p banding #Esophageal ulcers #Gastritis with hemorrhage #GI bleeding #Hematemesis #Acute blood loss anemia #Lactic acidosis, resolved #Hx of esophageal varices s/p banding #Hx of alcohol associated cirrhosis #Hx of alcohol abuse Patient came in with complaints of blood in his vomiting that started on night of admission at 2 AM Patient drinks around 3 cans of 36 ounces of beer every day Last drink was night prior to admission at 8 PM CIWA score 0 today AM Alcohol level 221.6 on admission Hemoglobin of 8 is around patient's baseline Lactic acid downtrended Hemoglobin today 8.2 CIWA score remains 0 Underwent EGD yesterday with gastroenterology, was found to have grade 2 esophageal varices, banded x 3, esophageal ulcers, gastritis with hemorrhage Plan: Discontinued Rocephin 1 g Titrating down to Librium 50 mg qday Octreotide drip Protonix 40 mg twice daily CIWA protocol GI consulted, appreciate commendations Gastroenterology following closely, recommended to have colonoscopy before discharge Currently on GoLytely prep Transfuse if hemoglobin less than 7 CLD #Decompensated liver cirrhosis #Coagulopathy #Hyperbilirubinemia #Hyperammonemia #Hx of cirrhosis Patient came in with INR of 1.5, T. bili of 1.6, and ammonia levels of 100 This is most likely secondary to cirrhosis secondary to alcohol use disorder Child-Ham score 6 points indicating child class C MELD-Na score 13 points indicating less than 2% mortality in the next 90 days. Plan: Will continue lactulose 20 mg daily due to diarrhea Will continue to monitor #Leukocytopenia WBC 3.8 intially, 4.1 today Most likely reactive Plan: Will continue to monitor for now #Hypomagnesemia Magnesium 1.4 Plan: Continue to replete as necessary Disposition: Anticipate discharge in 48 hours status post last day of octreotide drip and colonoscopy Diet: CLD GI prophylaxis: protonix DVT prophylaxis: SCDs Code: Full Patient's plan and care discussed with my attending, Dr. Rosanne No MD PGY-2
[2025-04-01] MEDS: NA SU/NAHCO3/KC/PEG (Golytely) 4,000 ML BTL 4000 ML PO ×2 (11:49→14:09)
--- NOTE | 2025-04-01 13:05 | PD.IMPROG ---
Documentation for date of: 04/01/25 Subjective Subjective Interval history: Patient evaluated Case discussed with internal medicine team GoLytely prep Colonoscopy a.m. Exam Vital Signs Temp Pulse Resp BP Pulse Ox O2 Del Method O2 Flow Rate 97.6 F 89 18 94/63 96 Room Air 1 04/01/25 11:58 04/01/25 11:58 04/01/25 11:58 04/01/25 11:58 04/01/25 11:58 04/01/25 11:58 03/30/25 08:02 Objective Labs 04/01/25 15:16 04/01/25 05:16 Labs: Laboratory Results - last 24 hr 04/01/25 05:16 WBC 4.8 RBC 2.92 L Hgb 8.2 L Hct 25.3 L MCV 87 MCH 28.1 MCHC 32.4 RDW Std Deviation 58.6 H Plt Count 64 L D Neut % (Auto) 72 Lymph % (Auto) 10 [place] % (Auto) 11 Eos % (Auto) 5 Baso % (Auto) 1 Neut # (Auto) 3.5 Lymph # (Auto) 0.5 L [place] # (Auto) 0.5 Eos # (Auto) 0.3 Baso # (Auto) 0.1 Immature Gran # (Auto) 0.03 H Absolute Nucleated RBC 0.00 Immature Gran % 1 H Nucleated RBC % 0 Sodium 135 L Potassium 3.7 Chloride 101 Carbon Dioxide 23.8 Anion Gap 10 BUN < 5 L Creatinine 0.7 Estim Creat Clear Calc 127.8 eGFR > 60 BUN/Creatinine Ratio 7 L Glucose 115 H Calculated Osmolality 268 L Calcium 8.4 Corrected Calcium 9.0 Magnesium 1.3 L Total Bilirubin 2.2 H AST 63 H ALT 14 Alkaline Phosphatase 123 H Total Protein 6.5 Albumin 3.3 L Globulin 3.2 Albumin/Globulin Ratio 1.0 L Misc Test Result Platelets confirmed Impressions Impression: Melena Schedule colonoscopy after GoLytely prep for tomorrow Assessment & Plan A&P Narrative # GI bleed in the form of hematemesis patient now having a lot of melanotic stools Plan Continue octreotide infusion Continue IV Protonix Serial CBC Consent obtained for fiberoptic esophagogastroduodenoscopy with possible therapeutic intervention under intravenous moderate sedation scheduled for today Will follow the patient Counseled the patient on complete abstinence of alcohol Thank you very much for the opportunity to participate in the care of this patient Time Spent With Patient Time: Total time spent is greater than 50% in coordination of care (as documented) at patient's floor/unit and/or counseling patient:
--- NOTE | 2025-04-01 14:52 | PC.SS ---
Rounding note: patient on octiotide drip until 04/02, pending colonoscopy as well.
[2025-04-01 15:29] LABS: Hematocrit 27.6 % (41.0-53.0); Hemoglobin 9.2 g/dL (13.5-16.0)
[2025-04-01] MEDS: Magnesium Sulfate 4 GM Ivpb 4 GM/50 ML BAG IV (18:25)
[2025-04-02] VITALS (16 sets, daily range): BP systolic 98–115; BP diastolic 61–82; PULSE 70–102; RESP 12–97; TEMP 36.5–37.3; O2SAT 92–100; BMI 28.3
[2025-04-02 06:04] LABS: Alanine Aminotransferase 14 U/L (10-49); Albumin, Serum 3.3 gm/dL (3.5-5.0); Albumin/Globulin Ratio 1.1 (1.2-2.2); Alkaline Phosphatase 118 U/L (46-116); Anion Gap 10 (7-16); Aspartate Amino Transferase 60 U/L (0-34); BUN/Creatinine Ratio 7 Ratio (12-20); Bilirubin,Total 2.1 mg/dL (0.3-1.2); Blood Urea Nitrogen < 5 mg/dL (9-23); Calcium 8.1 mg/dL (8.3-10.6); Calcium (Corrected) 8.7 mg/dL (8.5-10.1); Chloride 102 mMol/L (98-107); Creatinine (Component) 0.7 mg/dL (0.6-1.3); Estimated Creatinine Clearance 127.8 mL/min (>60); Globulin 3.1 gm/dL (2.3-3.5); Glucose 114 mg/dL (74-106); Magnesium 1.5 mg/dL (1.6-2.6); Osmolality,Calculated 272 (275-295); Potassium 3.7 mMol/L (3.4-5.1); Sodium 137 mMol/L (136-145); Total Protein 6.4 gm/dL (5.7-8.2); eGFR > 60 See Note
[2025-04-02 06:06] LABS: Basophils # (Auto) 0.1 Thou/mm3 (0.0-0.2); Basophils % (Auto) 1 % (0-2.5); Eosinophils # (Auto) 0.2 Thou/mm3 (0.0-0.5); Eosinophils % (Auto) 5 % (0-10); Hematocrit 25.4 % (41.0-53.0); Immature Granulocytes % (Auto) 1 % (0-0); Immature Granulocytes Auto 0.02 Thou/mm3 (0.00-0.00); Lymphocytes # (Auto) 0.7 Thou/mm3 (1.0-4.8); Lymphocytes % (Auto) 16 % (10-50); Mean Corpuscular HGB Conc 33.5 g/dl (31.0-37.0); Mean Corpuscular Hemoglobin 28.3 pg (25.0-35.0); Mean Corpuscular Volume 85 fL (80-100); Monocytes # (Auto) 0.5 Thou/mm3 (0.0-0.8); Monocytes % (Auto) 11 % (0-12); Neutrophils # (Auto) 2.7 Thou/mm3 (1.8-7.7); Neutrophils % (Auto) 66 % (37-80); Nucleated Red Blood Cell % 0 /100 WBC (0); RDW Standard Deviation 59.7 fL (35.1-43.9); White Blood Count 4.1 Thou/mm3 (3.8-10.6)
[2025-04-02 06:10] LABS: Hemoglobin 8.5 g/dL (13.5-16.0); Platelet Count 52 Thou/mm3 (140-440); Slide Review Platelets confirmed
--- NOTE | 2025-04-02 09:10 | SUR.PHASEI ---
0910: Pt. AAOx4, vitals stable, breathing unlabored, no complaint of pain or nausea, no dressing in place, no active bleed noted, report received from Angela ABDUL
--- NOTE | 2025-04-02 09:35 | SUR.PHASEI ---
0935: Pt. AAOx4, vitals stable, breathing unlabored, no complaint of pain or nausea, no dressing, no active bleed, gave report to floor nurse prior to transfer to room 363.
[2025-04-02] MEDS: Magnesium Sulfate 4 GM Ivpb 4 GM/50 ML BAG IV (09:50)
[2025-04-02] MEDS: LACTULOSE SYRUP 20 GM/30 ML UDC PO (09:51)
[2025-04-02] MEDS: OCTREOTIDE ACET INJ 1,000 MCG in SODIUM CHLORIDE 0.9% 100 ML 5.1 MCG IV (09:51)
[2025-04-02] MEDS: PANTOPRAZOLE INJ 40 MG VIAL IVP (09:51)
[2025-04-02] MEDS: FOLIC ACID 1 MG TABLET PO (09:51)
[2025-04-02] MEDS: THIAMINE 100 MG TABLET PO (09:52)
--- NOTE | 2025-04-02 14:17 | ESDS_ITS ---
<Statement entered by Elmira Lay MD - 04/08/25 15:44> I reviewed above note and agree with findings and plans. I have also personally examined the patient with medicine team and went over assessment and plan with medical team including validation intern and resident physician. Planned Discharge Date 04/02/25 DS: Providers Provider Date of admission: 03/28/25 07:44 Primary care physician: Cezar Adams MD Admitting Provider: Cathy Hubbard MD Attending Provider on Admission: Elmira Lay MD Consults: 03/28/25 07:49 Consult to Gastroenterology Routine Comment: Consulting Provider: Supriya Perla 03/28/25 11:46 Health Equity Referral - Knowledge Deficit Routine Comment: Positive screening for knowledge deficit needs. Health Equity Referral - Nutrition Routine Comment: Positive screening for nutrition needs. Health Equity Referral - Safety Routine Comment: Positive screening for safety needs. Attending Provider on DC: Cyn No MD Discharging Provider: Cyn No MD DS: Diagnosis Problem List Completed Was Problem List Reviewed/Reconciled?: Yes Hospital Course Hospital Course Hospital course: Mr. Wells is a 44-year-old male with past medical history significant for esophageal varices s/p banding, portal hypertension, alcohol associated cirrhosis, hypertensive portal gastropathy, chronic alcohol use, and frequent hospital admissions for due to alcohol withdrawal/intoxication presented to the ED with hematemesis and admitted to the hospital on 03/28/2025 due to GI bleed workup. Patient states that he drinks around 3 cans of 36 ounces of beer every day. Patient was placed on CIWA protocol and Octretotide gtt for 5 days, Protonix BID and given a Librium taper. GI was consulted and underwent EGD which showed grade 2 esophageal varices which were banded, esophageal ulcers, and gastritis with hemorrhage. Colonscopy was later performed, and showed hemorrhoids but otherwise normal colon and no specimens were collected. Pt seen and examined at bedside. Pt denies any complaints. Pt is medically cleared to be discharged today with the following instructions: Start taking these new medications: Sucralfate 1g twice daily and Folic acid 1mg daily, and Thiamine daily Continue other home medications as prescribed. Follow up with PCP within 1-2 weeks. Follow up with [facility] in 1-2 weeks. Please avoid any spicy foods, caffeine, Alcohol and NSAIDs due to your history of GI ulcers Please maintain a low salt diet, 2g daily. Return to the ED if you develop new or worsening symptoms. Comience a thai estos nuevos medicamentos: Sucralfato 1 g dos veces al d?a, ?cido f?isabela 1 mg al d?a y tiamina al d?a. Contin?e con los dem?s medicamentos que dilip en casa seg?n lo prescrito. Consulte con wyatt m?dico de atenci?n primaria en 1 o [address]te con el [address] Perla, gastroenter?logo, en 1 o 2 semanas. Evite las comidas picantes, la cafe?na, el alcohol y los MINDY debido a wyatt historial de ?lceras gastrointestinales. Mantenga monica dieta baja en doris, 2 g al d?a. Regrese a urgencias si presenta s?ntomas nuevos o si empeoran. Hospital discharge diagnoses treated during hospital stay: #Grade 2 esophageal varices s/p banding #Esophageal ulcers #Gastritis with hemorrhage #GI bleeding #Hematemesis #Acute blood loss anemia #Lactic acidosis, resolved #Hx of esophageal varices s/p banding #Hx of alcohol associated cirrhosis #Hx of alcohol abuse #Decompensated liver cirrhosis #Coagulopathy #Hyperbilirubinemia #Hyperammonemia #Hx of cirrhosis #Hypomagnesemia #Leukopenia-resolved Patient's plan and care discussed with my attending, Dr. Rosanne No MD PGY-2 Status at Discharge Cognitive/behavioral status at discharge: stable Time Spent with Patient Time attestation: Total time spent providing and/or coordinating discharge services: 35 Time spent: Greater than 30 minutes Quality: Stroke Pt Provided Written Stroke Discharge Instructions: No Exam Vital Signs Temp Pulse Resp BP Pulse Ox O2 Del Method O2 Flow Rate 97.8 F 88 16 101/67 94 L Room Air 3 04/02/25 11:35 04/02/25 11:59 04/02/25 11:35 04/02/25 11:35 04/02/25 11:35 04/02/25 11:35 04/02/25 09:02 Narrative Exam General Appearance: Patient in no apparent distress, laying comfortably in bed. Well-developed and nourished. HEENT: NC/AT, no scleral icterus, no conjunctival pallor, MMM Lungs: CTAB, no wheezes or crackles appreciated CVS: RRR, S1/S2 heard, no murmurs or rubs appreciated ABD: Soft, non-tender, non-distended, BS + in all 4 quadrants EXT: Right hand deformity due to trauma, no tremors noted visually in upper extremities, peripheral pulses felt bilaterally SKIN: Skin exam normal without any rashes except for multiple plaque-like lesions throughout body. Neuro: A&O x 3. No gross neurological deficits. Motor and sensory grossly intact in B/L UL and LL. Psych: Appropriate mood and affect Discharge Plan Plan Patient Disposition: HOME (Self Care) Care Plan Goals: Start taking these new medications: Sucralfate 1g twice daily and Folic acid 1mg daily, and Thiamine daily Continue other home medications as prescribed. Follow up with PCP within 1-2 weeks. Follow up with Dr. Perla, GI in 1-2 weeks. Please avoid any spicy foods, caffeine, Alcohol and NSAIDs due to your history of GI ulcers Please maintain a low salt diet, 2g daily. Return to the ED if you develop new or worsening symptoms. Comience a thai estos nuevos medicamentos: Sucralfato 1 g dos veces al d?a, ?cido f?isabela 1 mg al d?a y tiamina al d?a. Contin?e con los dem?s medicamentos que dilip en casa seg?n lo prescrito. Consulte con wyatt m?dico de atenci?n primaria en 1 o [address] con el [address] Perla, gastroenter?logo, en 1 o 2 semanas. Evite las comidas picantes, la cafe?na, el alcohol y los MINDY debido a wyatt historial de ?lceras gastrointestinales. Mantenga monica dieta baja en doris, 2 g al d?a. Regrese a urgencias si presenta s?ntomas nuevos o si empeoran. Prescriptions/Referrals Prescriptions/Med Rec: New folic acid 1 mg Tablet 1 mg PO QDAY 30 Days Qty: 30 0RF thiamine mononitrate (vit B1) 100 mg Tablet 100 mg PO QDAY Qty: 30 0RF sucralfate 1 gram tablet 1 g PO BID Qty: 60 0RF Continued midodrine 5 mg tablet 5 mg PO TID Qty: 90 0RF Rx Instructions: do not give last dose of day after 6PM or within 4 hrs of bedtime pantoprazole 40 mg tablet,delayed release (DR/EC) 40 mg PO QDAY Qty: 60 0RF Discontinued ferrous sulfate 325 mg (65 mg iron) Tablet,Delayed Release (Dr/Ec) 325 mg PO QOD Qty: 60 0RF chlordiazepoxide HCl 25 mg capsule 25 mg PO TID PRN (Reason: alcohol withdrawal) Qty: 30 0RF ibuprofen 800 mg tablet 800 mg PO TID PRN (Reason: pain) Qty: 30 0RF oseltamivir 75 mg capsule 75 mg PO Q12H Patient Comments: TOME 1 C PSULA POR V A ORAL DOS VECES AL D A POR NOLAN D ibuprofen 600 mg tablet 600 mg PO Q8H PRN (Reason: pain) Patient Comments: TOME 1 TABLETA POR V A ORAL UNRULY VECES AL D A CON COMIDA O LECHE CUANDO SEA NECESARIO FOR 14 DAYS Referrals: Cezar Adams MD [Primary Care Provider] - Patient/Caregiver Discharge Instructions Education Materials: Bleeding Gastrointestinal Print Language: Pakistani Stand Alone Forms: Kallie Award Info., Patient Portal Info Letter Discharge Order Discharge Orders: Discharge (Routine); Ordered 04/02/25 Ordered By: Cyn No Quality Discharge Quality Measures VTE prophylaxis
== END 2025-04-02 15:43 | disposition home or self-care (01) | DRG 280 ==
LOC: SERX 07:31 → SERHOLD 08:45 → S3NX 11:37
PROVIDERS: Physician Assistant; Specialist; Student in an Organized Health Care Education/Training Program; Admitting Provider Student in an Organized Health Care Education/Training Program; Emergency Provider Family Medicine; PCP Family Medicine; Visit Provider Internal Medicine
PROC: (CPT 43239; principal; 2025-03-28 17:45)
PROC: 0DJD8ZZ Inspection of Lower Intestinal Tract, Via Natural or Artificial Opening Endoscopic (ICD-10-PCS; CPT 45378; principal; 2025-04-02 07:30)
DX: K70.30 Alcoholic cirrhosis of liver without ascites (principal); I85.11 Secondary esophageal varices with bleeding; K29.71 Gastritis, unspecified, with bleeding; D69.6 Thrombocytopenia, unspecified; E87.20 Acidosis, unspecified; E83.42 Hypomagnesemia; D68.9 Coagulation defect, unspecified; D72.829 Elevated white blood cell count, unspecified; D62 Acute posthemorrhagic anemia; F10.239 Alcohol dependence with withdrawal, unspecified; F10.229 Alcohol dependence with intoxication, unspecified; Y90.7 Blood alcohol level of 200-239 mg/100 ml; K22.11 Ulcer of esophagus with bleeding; K22.10 Ulcer of esophagus without bleeding; K76.6 Portal hypertension; Z56.0 Unemployment, unspecified; Z87.11 Personal history of peptic ulcer disease; K72.10 Chronic hepatic failure without coma; K64.9 Unspecified hemorrhoids; Z91.199 Patient's noncompliance with other medical treatment and regimen due to unspecified reason
CPT/HCPCS: 36415; 80053; 80074; 80320; 82140; 83605; 83735; 84100; 84145; 85014; 85018; 85025; 85610; 85730; 86703; 86850; 86900; 86901; 86921; 86922; 96361; 96365; 96374; 96375; 99291; A4649; J0696; J1200; J2060; J2250; J2354; J2405; J2470; J3010; J3411; J3475; J3480; J3490; J7042; J7050; J7120; P9016; A9270; G0480

== ENCOUNTER 2025-04-06 14:31 | Emergency (ER) | payer MEDICAID, SELFPAY ==
[2025-04-06 14:35] VITALS: BP 118/72; PULSE 97; RESP 16; TEMP 37.4; O2SAT 97; BMI 27.4
[2025-04-06 14:54] VITALS: PULSE 97; RESP 18; O2SAT 98
--- NOTE | 2025-04-06 15:06 | XR_ITS ---
Examination: CT brain head without contrast. 2-D sagittal coronal reconstructions Date and time of exam: April 06, 2025 1545 hours INDICATIONS: Onset altered mental status and slurred speech today, injury to the head CTDI: vol (mGy):47.7 DLP: (mGycm):926 Technique: Multiple CT axial sections of the brain have been obtained, 5 mm slice thickness. Contrast has not been administered. 2-D sagittal, coronal reconstructions have been obtained Low dose protocols were performed. One or more of the following dose reduction techniques were used; automated exposure control, adjustment of the mA and/or KV according to patient size, use of iterative reconstruction technique. Findings: No significant ventricular enlargement. Intra-axial or extra-axial hemorrhage density is not seen. No mass effect or midline shift Basal cisterns are not remarkable. Fourth ventricle is midline. Cranial vault intact. Posterior right scalp soft tissue swelling Impression: Negative for acute hemorrhage, mass effect or midline shift
--- NOTE | 2025-04-06 15:09 | PD.EDAMS ---
Altered Mental Status RME/HPI General Chief Complaint: Altered Mental Status Stated Complaint: ALTERED Time Seen by Provider: 04/06/25 15:06 Source: patient Arrival date/time: 04/06/25 14:31 44-year-old male with a history of liver cirrhosis, alcoholism, presents to the emergency room with a chief complaint of altered mental status. Per EMS patient had a fall. Mode of arrival: ambulatory Limitations: no limitations Related Data Previous Rx's ?Medication ?Instructions ?Recorded midodrine 5 mg tablet 5 mg PO TID #90 tabs 05/26/24 pantoprazole 40 mg tablet,delayed 40 mg PO QDAY #60 tabs 08/11/24 release folic acid 1 mg tablet 1 mg PO QDAY 30 days #30 tabs 04/02/25 sucralfate 1 gram tablet 1 g PO BID #60 tabs 04/02/25 thiamine mononitrate (vit B1) 100 100 mg PO QDAY #30 tabs 04/02/25 mg tablet Allergies Allergy/AdvReac Type Severity Reaction Status Date / Time No Known Allergies Allergy Verified 03/28/25 04:59 Review of Systems Review of Systems Systems Reviewed: All systems reviewed, normal except as documented Constitutional Constitutional: Reports system reviewed and no additional complaints, except as documented, Denies fatigue, Denies fever(s), Denies headache(s), Reports poor appetite, Reports lethargy and Reports weakness Eyes Eyes: Reports system reviewed and no additional complaints, except as documented, Denies blurry vision and Denies change in vision ENT Ears, Nose, Mouth, and Throat: Reports system reviewed and no additional complaints, except as documented, Denies otalgia, Denies headache(s), Denies nasal congestion, Denies throat swelling and Denies vertigo Cardiovascular Cardiovascular: Reports system reviewed and no additional complaints, except as documented, Denies chest pain, Denies dyspnea and Denies dyspnea on exertion Respiratory Respiratory: Reports system reviewed and no additional complaints, except as documented, Denies chest congestion, Denies cough, Denies dyspnea, Denies dyspnea on exertion and Denies wheezing Gastrointestinal Gastrointestinal: Reports system reviewed and no additional complaints, except as documented, Denies abdominal pain, Denies cramping, Denies nausea and Denies vomiting Genitourinary Genitourinary: Reports system reviewed and no additional complaints, except as documented, Denies dysuria and Denies hematuria Musculoskeletal Musculoskeletal: Reports system reviewed and no additional complaints, except as documented and Denies back pain Integumentary/Breasts Skin/Breast: Reports system reviewed and no additional complaints, except as documented and Denies wounds Neurologic Neurologic: Reports system reviewed and no additional complaints, except as documented, Reports confusion, Denies headache(s), Denies lack of coordination, Denies vertigo and Reports weakness Psychiatric Psychiatric: Reports system reviewed and no additional complaints, except as documented, Denies anxiety, Reports confusion, Denies depression, Denies paranoia, Denies suicidal ideation and Denies tactile hallucinations Endocrine Endocrine: Reports system reviewed and no additional complaints, except as documented and Denies fatigue Hematologic/Lymphatic Hematologic/Lymphatic: Reports system reviewed and no additional complaints, except as documented and Denies lymphadenopathy Allergic/Immunologic Allergic/Immunologic: Reports system reviewed and no additional complaints, except as documented, Denies throat swelling, Denies urticaria and Denies wheezing ED Exam General Limitations: Present no limitations General appearance: Present alert and in no apparent distress Head Head exam: Present atraumatic, normocephalic and normal inspection Expanded Head Exam Head exam physical: Absent laceration, abrasion, contusion, hematoma, raccoon eyes, Adams's sign, tenderness of temporal artery, CSF rhinorrhea or CSF otorrhea Eye Eye exam: Present normal appearance, PERRL and EOMI ENT ENT exam: Present normal exam, normal oropharynx and mucous membranes moist Neck Neck exam: Present normal inspection, full ROM and trachea midline Chest Chest inspection: Present normal inspection and symmetric chest wall rise Respiratory Respiratory exam: Present normal lung sounds bilaterally Cardiovascular Cardiovascular exam: Present regular rate, normal rhythm and normal heart sounds Abdominal Exam Abdominal exam: Present soft and normal bowel sounds Extremities Exam Extremities exam: Present normal inspection and full ROM Back Exam Back exam: Present normal inspection and full ROM Neurological Exam Neurological exam: Present alert, oriented X3 and CN II-XII intact; Absent normal gait or reflexes normal Expanded Neurological Exam Patient oriented to: Present person and place Cerebellar function: Present wide-based gait Motor strength - LUE: 5/5 Motor strength - RUE: 5/5 Motor strength - LLE: 5/5 Motor strength - RLE: 5/5 Coma scale eye opening: spontaneous Coma scale motor response: obeys commands Coma scale verbal response: oriented Coma scale total: 15 Psychiatric Psychiatric exam: Present normal affect and normal mood Skin Skin exam: Present warm, dry, intact and normal color Course Quality Measures none Orders Category Date Time Status CT head/brain wo con Stat Exams 04/06/25 15:06 Completed Alcohol, Blood Medical Stat Lab 04/06/25 15:18 Completed Ammonia Stat Lab 04/06/25 15:18 Completed CBC Stat Lab 04/06/25 15:18 Completed CMP [Comprehensive Metabolic Panel] Stat Lab 04/06/25 15:18 Completed Drug Screen,Urine Stat Lab 04/06/25 18:42 Completed Lipase Stat Lab 04/06/25 15:18 Completed PT [Prothrombin Time with INR] Stat Lab 04/06/25 15:18 Completed PTT [Partial Thromboplastin Time] Stat Lab 04/06/25 15:18 Completed UA, C/S IF [Urinalysis, C/S if Indicated] Stat Lab 04/06/25 18:42 Completed Vital Signs Vital signs: Vital Signs Temperature 99.3 F 04/06/25 14:35 Pulse Rate 97 04/06/25 14:35 Respiratory Rate 16 04/06/25 14:35 Blood Pressure 118/72 04/06/25 14:35 Pulse Oximetry (%) 97 04/06/25 14:35 Oxygen Delivery Method Room Air 04/06/25 14:35 O2 saturation 97% within normal limits Altered Mental Status MDM Narrative MDM Narrative:: 44-year-old male with a history of liver cirrhosis, alcoholism, presents to the emergency room with a chief complaint of altered mental status. Per EMS patient had a fall. Patient is hemodynamically stable and in no apparent distress Physical examination shows an intoxicated patient. The patient is able to tell me his name and where he is at the recommendation and states he been drinking since this morning. Per EMS the patient had a fall with a possible head injury. There is no obvious signs of any lacerations or abrasions. CT of the head and brain was completed and was negative for any acute findings CBC CMP were negative for any acute findings Patient's alcohol level was elevated. Patient was discharged to the patient sobered up. Patient was discharged and educated to follow-up with primary care provider in the next 24 to 48 hours and return to the emergency room for any evidence of worsening signs or symptoms Patient data External records reviewed:: [facility] previous records Clinical information provided by:: patient Social determinants that could affect healthcare access:: none Patient has the following chronic illnesses:: Alcoholism, alcoholic cirrhosis How is presenting disease/condition affected by chronic disease/condition?: exacerbated by Evaluation data The following diagnostics were reviewed and interpreted by me:: lab results and radiology exam(s) Lab and/or radiology exams considered but not ordered:: Labs and radiology exams considered in order Interpretation Summary: CT of the head and brain-Findings: No significant ventricular enlargement. Intra-axial or extra-axial hemorrhage density is not seen. No mass effect or midline shift Basal cisterns are not remarkable. Fourth ventricle is midline. Cranial vault intact. Posterior right scalp soft tissue swelling Impression: Negative for acute hemorrhage, mass effect or midline shift Medications / Prescriptions Medications or Prescriptions considered but not ordered:: No medication given Medication administrations:: No medication given Consultations Consultation(s) initiated? (list below): No Diagnosis Differential diagnosis altered mental status: alcoholic intoxication, altered mental status, hypoglycemia, hyponatremia and subarachnoid hemorrhage Most likely diagnosis given after review of the tests above:: Alcohol intoxication Admission Indicated Admission indicated?: not indicated Admission Request Was there a request for admission?: No Disposition Plan Disposition Plan: Discharge Discharge Attestation Discharge Attestation: The patient and all family members were given an opportunity to ask questions and understood the discharge instructions. Discharge instructions specifically effects, indications for sooner follow up or return to the emergency department, and the expected course of current diagnosis. Patient condition: Stable Discharge Plan Plan Patient Disposition: HOME (Self Care) Discharge Disposition comment: stable Prescriptions/Referrals Prescriptions/Med Rec: No Action midodrine 5 mg tablet 5 mg PO TID Qty: 90 0RF Rx Instructions: do not give last dose of day after 6PM or within 4 hrs of bedtime pantoprazole 40 mg tablet,delayed release (DR/EC) 40 mg PO QDAY Qty: 60 0RF folic acid 1 mg Tablet 1 mg PO QDAY 30 Days Qty: 30 0RF thiamine mononitrate (vit B1) 100 mg Tablet 100 mg PO QDAY Qty: 30 0RF sucralfate 1 gram tablet 1 g PO BID Qty: 60 0RF Referrals: Cezar Adams MD [Primary Care Provider] - In 1 week Problem List Clinical Impression: Alcohol intoxication Patient/Caregiver Discharge Instructions Education Materials: ED Alcohol Intoxication Additional Instructions: Por favor, consulte con wyatt m?dico de cabecera en las pr?ximas 24 a 48 horas. Por favor, deje de beber alcohol, ya que esta es la causa de fuentes s?ntomas. Si hay alguna evidencia de empeoramiento de los signos o s?ntomas, regrese a la kati de emergencias inmediatamente. Print Language: Persian Stand Alone Forms: Kallie Award Info., Patient Portal Info Letter PA/HOME CARE ATTENDANT Supervising Physician PA/HOME CARE ATTENDANT Supervising Physician: Dr Van
[2025-04-06 15:31] LABS: Basophils # (Auto) 0.1 Thou/mm3 (0.0-0.2); Basophils % (Auto) 2 % (0-2.5); Eosinophils # (Auto) 0.5 Thou/mm3 (0.0-0.5); Eosinophils % (Auto) 7 % (0-10); Hematocrit 23.3 % (41.0-53.0); Immature Granulocytes % (Auto) 0 % (0-0); Immature Granulocytes Auto 0.02 Thou/mm3 (0.00-0.00); Lymphocytes # (Auto) 1.2 Thou/mm3 (1.0-4.8); Lymphocytes % (Auto) 18 % (10-50); Mean Corpuscular HGB Conc 33.9 g/dl (31.0-37.0); Mean Corpuscular Hemoglobin 27.9 pg (25.0-35.0); Mean Corpuscular Volume 82 fL (80-100); Monocytes # (Auto) 0.9 Thou/mm3 (0.0-0.8); Monocytes % (Auto) 13 % (0-12); Neutrophils % (Auto) 60 % (37-80); Nucleated Red Blood Cell % 0 /100 WBC (0); RDW Standard Deviation 57.6 fL (35.1-43.9); Red Blood Count 2.83 Miln/mm3 (4.50-5.90); White Blood Count 6.6 Thou/mm3 (3.8-10.6)
[2025-04-06 15:42] LABS: Ammonia 35 uMol/L (11-32)
[2025-04-06 15:49] LABS: Hemoglobin 7.9 g/dL (13.5-16.0)
[2025-04-06 15:50] LABS: Platelet Count 73 Thou/mm3 (140-440)
[2025-04-06 15:59] LABS: INR 1.4 (0.9-1.3); Partial Thromboplastin Time 33.7 Seconds (22.0-36.0); Prothrombin Time 14.9 Seconds (9.0-12.2)
[2025-04-06 16:03] LABS: Alanine Aminotransferase 20 U/L (10-49); Albumin, Serum 3.4 gm/dL (3.5-5.0); Albumin/Globulin Ratio 1.1 (1.2-2.2); Alkaline Phosphatase 197 U/L (46-116); Anion Gap 12 (7-16); Aspartate Amino Transferase 70 U/L (0-34); BUN/Creatinine Ratio 8 Ratio (12-20); Bilirubin,Total 1.6 mg/dL (0.3-1.2); Blood Urea Nitrogen < 5 mg/dL (9-23); Calcium 7.1 mg/dL (8.3-10.6); Calcium (Corrected) 7.6 mg/dL (8.5-10.1); Carbon Dioxide 21.7 mMol/L (20.0-31.0); Chloride 105 mMol/L (98-107); Creatinine (Component) 0.6 mg/dL (0.6-1.3); Estimated Creatinine Clearance 150.1 mL/min (>60); Globulin 3.1 gm/dL (2.3-3.5); Glucose 120 mg/dL (74-106); Lipase 31 U/L (12-53); Osmolality,Calculated 275 (275-295); Potassium 3.5 mMol/L (3.4-5.1); Sodium 139 mMol/L (136-145); Total Protein 6.5 gm/dL (5.7-8.2); eGFR > 60 See Note
[2025-04-06 16:05] LABS: Alcohol, Blood Medical 415.6 mg/dL (0-10.0)
[2025-04-06 16:28] VITALS: BP 111/78; PULSE 90; RESP 14; TEMP 37.3; O2SAT 95
[2025-04-06 17:25] LABS: Slide Review Platelets confirmed
[2025-04-06 18:44] VITALS: BP 119/90; PULSE 91; RESP 16; TEMP 36.9; O2SAT 98
[2025-04-06 18:49] LABS: Collection Type, Urine Clean Catch; Squamous Epithelial Cell,Urine 0 /hpf (0-5); WBC,Urine 0 /hpf (0-5)
[2025-04-06 19:01] LABS: Bilirubin,Urine Negative (Negative); Blood,Urine Negative (Negative); Clarity,Urine Clear (Clear/Hazy); Color,Urine Colorless (Lt Yel-Yel); Culture Indicated,Urine Not Indicated; Glucose, Urine Negative (Negative); Ketones,Urine Negative (Negative); Leukocyte Esterase,Urine Negative (Negative); Nitrite,Urine Negative (Negative); PH,Urine 6.5 (5.0-7.0); Protein,Urine Negative (Neg - Trace); RBC,Urine < 1 /hpf (0-3); Specific Gravity,Urine 1.004 (1.001-1.035); Urobilinogen,Urine Negative mg/dL (0.0-1.0)
[2025-04-06 19:40] LABS: Amphetamine/Methamp Scrn,U Negative (Negative); Barbiturate Screen,Urine Negative (Negative); Benzodiazepines Screen,Urine Positive (Negative); Benzoylecgonine Screen, Ur Negative (Negative); Fentanyl Screen,Urine Negative (Negative); Opiate Screen,Urine Negative (Negative); THC Screen,Urine Negative (Negative)
== END 2025-04-06 20:04 | disposition home or self-care (01) ==
PROVIDERS: Nurse Practitioner Family; Emergency Provider Emergency Medicine; PCP Family Medicine
DX: F10.129 Alcohol abuse with intoxication, unspecified (principal); Y90.9 Presence of alcohol in blood, level not specified; K74.60 Unspecified cirrhosis of liver
CPT/HCPCS: 36415; 70450; 80053; 80307; 80320; 81001; 82140; 83690; 85025; 85610; 85730; 99284; G0480

== ENCOUNTER 2025-04-09 17:17 | Emergency (ER) | payer MEDICAID, SELFPAY ==
[2025-04-09 17:20] VITALS: BP 102/67; PULSE 83; RESP 18; TEMP 37.1; O2SAT 95; BMI 28.3
[2025-04-09 17:31] VITALS: BMI 22.6
--- NOTE | 2025-04-09 18:12 | EDNOTE_ITS ---
ED Medical Clearance MANSOOR/VIC General Chief complaint: Medical Clearance Stated complaint: MEDICAL CLEARANCE Time Seen by Provider: 04/09/25 18:07 Arrival date/time: 04/09/25 17:17 MANSOOR / VIC RMGrace / VIC Narrative: 44-year-old male presents to the ED via law enforcement for residential clearance. They were concerned because of blood pressure initially was 86/55 with a pulse of 83. He is supposed to be taking midodrine 5 mg p.o. 3 times daily. It is unknown if he has been taking this medication as he is a heavy alcohol abuser. Is been brought in numerous times recently for medical clearances. His history includes a recent GI bleed with hospitalization here in our facility in which she received banding for his esophageal varices. He received octreotide and was prescribed folic acid, pantoprazole, sulcal fate, as well as thiamine. It is unknown if he has been taking his medications. He states, through a sports equipment racker, that his last bleeding was 5 days ago when he had bright red blood per rectum as well a bright red blood while vomiting. He has had none since his discharge from the hospital. MD complaint: medical clearance requested Related Information Previous Rx's ?Medication ?Instructions ?Recorded midodrine 5 mg tablet 5 mg PO TID #90 tabs 4 pantoprazole 40 mg tablet,delayed 40 mg PO QDAY #60 ta bs 08/11/24 release folic acid 1 mg tablet 1 mg PO QDAY 30 days #30 tab s 04/02/25 sucralfate 1 gram tablet 1 g PO BID #60 tabs 04/02/25 thiamine mononitrate (vit B1) 100 100 mg PO QDAY #30 t abs 04/02/25 mg tablet Allergies Allergy/AdvReac Type Severity Reaction Status Date / Time No Known Allergies Allergy Verified 04/09/25 17:33 Review of Systems Review of Systems Systems Reviewed: All systems reviewed, normal except as documented Past Medical History Past Medical History NEUROLOGIC: Negative Neurological Disorders or Seizures CARDIAC: Positive Cardiac Disorders, Myocardial Infarction, Angina and Hypertension; Negative Cardiac Arrhythmia, Atrial Fibrillation, Heart Murmur, Coronary Artery Disease, Atherosclerotic Heart Disease, Peripheral Vascular Disease, Hypercholesterolemia, Aneurysm, Congestive Heart Failure, Congenital Heart Disease, Rheumatic Fever, Cardiomyopathy, Edema, Pericarditis, Cellulitis, Deep Vein Thrombosis, Hypotension or Varicose Veins RESPIRATORY: Negative Chronic Obstructive Pulmonary Disease (COPD) or Asthma GASTROINTESTINAL: Positive Hepatitis, Gastrointestinal Bleed, Esophageal Varices and Gastroesophageal Reflux Disease; Negative Gastrointestinal Disorders, Cirrhosis, Pancreatitis, Celiac Disease, Gall Bladder Disease, Bettencourt's Esophagus, Colitis, Ulcerative Colitis, Diverticulitis, Diverticulosis, Ulcer, Irritable Bowel, Crohn's Disease, Obstructive Bowel, Hiatal Hernia, Hemorrhoids or Obesity GENITOURINARY: Negative Genitourinary Disorders or Renal Disease MUSCULOSKELETAL: Negative Musculoskeletal Disorders ENT: Negative Cataracts, Glaucoma, Blind, Retinal Detachment, Macular Deg eneration, Ear Infection, Deafness or Eye Prosthesis ENDOCRINE: Negative Endocrine Disorders, Diabetes Mellitus Type 1, Diabetes Mellitus Type 2, Hypoglycemia, Awais's Syndrome, Packwood's Disease, H yperthyroidism, Hypothyroidism, Parathyroid Disease, Pituitary Disease, Systemic Lupus Erythematosus, Syndrome of Inappropriate Antidiuretic Hormone (SIADH), Adrenal Disease or Graves' Disease HEMATOLOGIC: Positive Anemia; Negative Blood Disorders or Sickle Cell Disease PSYCHO/SOCIAL: Positive Recreational Drug Use, Depression and Anxiety OTHER HISTORY: Positive Hospitalization, Falls and Chicken Pox; Negative Autoimmune Disease, Down Syndrome, Developmental Delay, Blood Transfusions, Anesthesia Reactions, Organ Transplant, MRSA, VRSA, Clostridium Difficile or Cancer Family History FAMILY HISTORY: Negative Family Psychiatric Problems, Family Respiratory Disorders, Family Cardiac Disorders, Family Gastrointestinal Problems, Family Cancer, Family Surgery or Family Anesthesia Reaction Surgical History SURGICAL: Negative Cardiac Surgery, Pacemaker, Endocrine Surgery, Ear Surgery, Abdominal Surgery, Nephrectomy, Joint Replacement, Neurologic Surgery, Vasectomy or Organ Transplant Social History SMOKING STATUS: Former smoker SECOND HAND EXPOSURE: No SUBSTANCE USE: methamphetamine ED Exam Narrative Physical exam: Alert 44-year-old male, no acute distress, obvious signs of intoxication. Lungs are clear, regular rate and rhythm without murmurs, current vital signs blood pressure 102/67, pulse 83, respirations 18 and nonlabored, temperature 98.8, O2 sat 95% on room air. Abdomen is soft and nontender, moves all extremities well. Course Course Course Narrative: 44-year-old male presents to the ED via law enforcement for residential clearance. They were concerned because of blood pressure initially was 86/55 with a pulse of 83. He is supposed to be taking midodrine 5 mg p.o. 3 times daily. It is unknown if he has been taking this medication as he is a heavy alcohol abuser. Is been brought in numerous times recently for medical clearances. His history includes a recent GI bleed with hospitalization here in our facility in which she received banding for his esophageal varices. He received octreotide and was prescribed folic acid, pantoprazole, sulcal fate, as well as thiamine. It is unknown if he has been taking his medications. He states, through a sports equipment racker, that his last bleeding was 5 days ago when he had bright red blood per rectum as well a bright red blood while vomiting. He has had none since his discharge from the hospital. Alert 44-year-old male, no acute distress, obvious signs of intoxication. Lungs are clear, regular rate and rhythm without murmurs, current vital signs blood pressure 102/67, pulse 83, respirations 18 and nonlabored, temperature 98.8, O2 sat 95% on room air. Abdomen is soft and nontender, moves all extremities well. Current labs reveal a normal white count with improved H&H of 8.3/24.1 from his previous reading of 7.9/23.3. Platelets are low at 83, improved from 73. Patient with history of thrombocytopenia likely secondary to alcohol abuse. Orders Category Date Time Status CBC Stat Lab 04/09/25 18:50 Completed CMP [Comprehensive Metabolic Panel] Stat Lab 04/09/25 18:50 Completed Vital Signs Vital signs: Vital Signs Temperature 98.8 F 04/09/25 17:20 Pulse Rate 83 04/09/25 17:20 Respiratory Rate 18 04/09/25 17:20 Blood Pressure 102/67 04/09/25 17:20 Pulse Oximetry (%) 95 04/09/25 17:20 Oxygen Delivery Method Room Air 04/09/25 17:20 Discharge Plan Plan Patient Disposition: Elopement Discharge Disposition comment: Stable Prescriptions/Referrals Prescriptions/Med Rec: No Action midodrine 5 mg tablet 5 mg PO TID Qty: 90 0RF Rx Instructions: do not give last dose of day after 6PM or within 4 hrs of bedtime pantoprazole 40 mg tablet,delayed release (DR/EC) 40 mg PO QDAY Qty: 60 0RF folic acid 1 mg Tablet 1 mg PO QDAY 30 Days Qty: 30 0RF thiamine mononitrate (vit B1) 100 mg Tablet 100 mg PO QDAY Qty: 30 0RF sucralfate 1 gram tablet 1 g PO BID Qty: 60 0RF Referrals: No Primary/Family,Physician [Primary Care Provider] - In 1 week Problem List Clinical Impression: Alcoholism, chronic Patient/Caregiver Discharge Instructions Print Language: Togolese PA/PROCUREMENT INSPECTOR Supervising Physician PA/PROCUREMENT INSPECTOR Supervising Physician: Dr. Patel
[2025-04-09 19:25] LABS: Basophils # (Auto) 0.1 Thou/mm3 (0.0-0.2); Basophils % (Auto) 1 % (0-2.5); Eosinophils # (Auto) 0.6 Thou/mm3 (0.0-0.5); Eosinophils % (Auto) 8 % (0-10); Hematocrit 24.1 % (41.0-53.0); Immature Granulocytes % (Auto) 1 % (0-0); Immature Granulocytes Auto 0.03 Thou/mm3 (0.00-0.00); Lymphocytes # (Auto) 1.3 Thou/mm3 (1.0-4.8); Lymphocytes % (Auto) 20 % (10-50); Mean Corpuscular HGB Conc 34.4 g/dl (31.0-37.0); Mean Corpuscular Hemoglobin 27.6 pg (25.0-35.0); Mean Corpuscular Volume 80 fL (80-100); Monocytes # (Auto) 0.4 Thou/mm3 (0.0-0.8); Monocytes % (Auto) 6 % (0-12); Neutrophils # (Auto) 4.2 Thou/mm3 (1.8-7.7); Neutrophils % (Auto) 64 % (37-80); Nucleated Red Blood Cell % 0 /100 WBC (0); Platelet Count 83 Thou/mm3 (140-440); Red Blood Count 3.01 Miln/mm3 (4.50-5.90); White Blood Count 6.5 Thou/mm3 (3.8-10.6)
[2025-04-09 19:26] LABS: Hemoglobin 8.3 g/dL (13.5-16.0)
[2025-04-09 19:46] LABS: Alanine Aminotransferase 17 U/L (10-49); Albumin, Serum 3.4 gm/dL (3.5-5.0); Alkaline Phosphatase 193 U/L (46-116); Anion Gap 13 (7-16); Aspartate Amino Transferase 73 U/L (0-34); BUN/Creatinine Ratio 7 Ratio (12-20); Bilirubin,Total 1.4 mg/dL (0.3-1.2); Blood Urea Nitrogen < 5 mg/dL (9-23); Calcium 7.3 mg/dL (8.3-10.6); Calcium (Corrected) 7.8 mg/dL (8.5-10.1); Carbon Dioxide 24.8 mMol/L (20.0-31.0); Chloride 108 mMol/L (98-107); Creatinine (Component) 0.7 mg/dL (0.6-1.3); Estimated Creatinine Clearance 122.2 mL/min (>60); Globulin 3.4 gm/dL (2.3-3.5); Glucose 96 mg/dL (74-106); Osmolality,Calculated 287 (275-295); Potassium 3.5 mMol/L (3.4-5.1); Sodium 146 mMol/L (136-145); Total Protein 6.8 gm/dL (5.7-8.2); eGFR > 60 See Note
[2025-04-09 19:47] VITALS: BP 99/65; PULSE 74; RESP 17; TEMP 36.6; O2SAT 96
== END 2025-04-09 20:35 | disposition left against medical advice (07) ==
PROVIDERS: Physician Assistant; Emergency Provider Emergency Medicine
DX: Z02.89 Encounter for other administrative examinations (principal); F10.20 Alcohol dependence, uncomplicated
CPT/HCPCS: 36415; 80053; 85025; 99281

== ENCOUNTER 2025-04-14 18:33 | Emergency (ER) | payer MEDICAID, SELFPAY ==
[2025-04-14 18:34] VITALS: BMI 26.6
[2025-04-14 18:43] VITALS: BP 107/68; PULSE 83; RESP 20; TEMP 37.9; O2SAT 96
--- NOTE | 2025-04-14 19:07 | XR_ITS ---
Examination: PA chest single view TECHNIQUE: Upright PA chest single view Date and time: April 14, 2025 1921 hours Comparison September 19, 2024 INDICATION: Chest pain beginning this morning FINDINGS: Minimal prominence left ventricle No pneumonia or pulmonary edema Multiple right-sided rib fractures IMPRESSION: No active disease
--- NOTE | 2025-04-14 19:07 | EKG_ITS ---
[facility] Test Date: 2025-04-14 Pat Name: KOLBY RON Department: Room: - Gender: Male Art Manager: : 1980 Requested By: Gavin Stuart Order Number: [id number] Reading MD: Gavin Stuart Measurements Intervals [place] Rate: 80 P: 14 WV: 168 QRS: -10 QRSD: 100 T: 17 QT: 392 QTc: 455 Interpretive Statements SINUS RHYTHM Compared to ECG 12/13/2024 20:11:14 No significant changes /store/S0/[id number].pdf
--- NOTE | 2025-04-14 19:08 | PD.EDRME ---
Rapid Medical Screening Exam E Arrival date/time: 04/14/25 18:33 44M with history of alcoholic disorder presents to ED with 1 day of CP and cough. Chief Complaint: Chest Pain Vital signs: Vital Signs Temperature 100.2 F 04/14/25 18:43 Pulse Rate 83 04/14/25 18:43 Respiratory Rate 20 04/14/25 18:43 Blood Pressure 107/68 04/14/25 18:43 Pulse Oximetry (%) 96 04/14/25 18:43 Oxygen Delivery Method Room Air 04/14/25 18:43
[2025-04-14 19:26] LABS: Lactate (Lactic Acid) 1.1 mMol/L (0.4-2.0)
[2025-04-14 19:34] LABS: Basophils # (Auto) 0.1 Thou/mm3 (0.0-0.2); Basophils % (Auto) 1 % (0-2.5); Eosinophils # (Auto) 0.7 Thou/mm3 (0.0-0.5); Eosinophils % (Auto) 8 % (0-10); Immature Granulocytes % (Auto) 0 % (0-0); Immature Granulocytes Auto 0.03 Thou/mm3 (0.00-0.00); Lymphocytes % (Auto) 23 % (10-50); Mean Corpuscular HGB Conc 32.7 g/dl (31.0-37.0); Mean Corpuscular Hemoglobin 27.6 pg (25.0-35.0); Mean Corpuscular Volume 84 fL (80-100); Monocytes # (Auto) 0.5 Thou/mm3 (0.0-0.8); Monocytes % (Auto) 5 % (0-12); Neutrophils # (Auto) 5.5 Thou/mm3 (1.8-7.7); Neutrophils % (Auto) 63 % (37-80); Nucleated Red Blood Cell % 0 /100 WBC (0); Platelet Count 95 Thou/mm3 (140-440); RDW Standard Deviation 63.2 fL (35.1-43.9); Red Blood Count 3.08 Miln/mm3 (4.50-5.90); White Blood Count 8.7 Thou/mm3 (3.8-10.6)
[2025-04-14 19:35] LABS: Hemoglobin 8.5 g/dL (13.5-16.0)
[2025-04-14 20:05] LABS: Alanine Aminotransferase 15 U/L (10-49); Albumin, Serum 3.7 gm/dL (3.5-5.0); Alkaline Phosphatase 221 U/L (46-116); Anion Gap 11 (7-16); BUN/Creatinine Ratio 8 Ratio (12-20); Bilirubin,Total 1.4 mg/dL (0.3-1.2); Blood Urea Nitrogen 5 mg/dL (9-23); Calcium 8.2 mg/dL (8.3-10.6); Calcium (Corrected) 8.4 mg/dL (8.5-10.1); Carbon Dioxide 23.9 mMol/L (20.0-31.0); Chloride 108 mMol/L (98-107); Creatinine (Component) 0.6 mg/dL (0.6-1.3); Estimated Creatinine Clearance 138.1 mL/min (>60); Globulin 3.6 gm/dL (2.3-3.5); Glucose 109 mg/dL (74-106); Osmolality,Calculated 283 (275-295); Potassium 3.6 mMol/L (3.4-5.1); Procalcitonin 0.08 ng/ml (0.0-0.49); Sodium 143 mMol/L (136-145); Total Protein 7.3 gm/dL (5.7-8.2); Troponin I < 0.020 ng/mL (0.0-0.045); eGFR > 60 See Note
[2025-04-14 20:18] LABS: Alcohol, Blood Medical 408.6 mg/dL (0-10.0)
[2025-04-15] VITALS (8 sets, daily range): BP systolic 105–115; BP diastolic 72–86; PULSE 68–88; RESP 11–18; TEMP 36.6–37.7; O2SAT 93–97
--- NOTE | 2025-04-15 04:18 | PD.EDCHEST ---
ED Chest Pain RME/HPI General Chief Complaint: Chest Pain Stated Complaint: ABD/CXP PAIN SINCE 0800 Arrival date/time: 04/14/25 18:33 RME / HPI RME / HPI narrative: 04/14/25 18:33 44M with history of alcoholic disorder presents to ED with 1 day of CP and cough. ------ Dr. Aquino?s Main ED Evaluation: 44yo male with a history of alcohol abuse presents to the ED for a chief complaint of chest pain x 1 day. No radiation or migration. Patient reports associated dry cough. Patient notes he has been drinking a lot today, but does not quantify how much he drank. Patient denies any fever, chills, N/V or any other associated symptoms. NKA. Related Data Previous Rx's ?Medication ?Instructions ?Recorded midodrine 5 mg tablet 5 mg PO TID #90 tabs 05/26/24 pantoprazole 40 mg tablet,delayed 40 mg PO QDAY #60 tabs 08/11/24 release folic acid 1 mg tablet 1 mg PO QDAY 30 days #30 tabs 04/02/25 sucralfate 1 gram tablet 1 g PO BID #60 tabs 04/02/25 thiamine mononitrate (vit B1) 100 100 mg PO QDAY #30 tabs 04/02/25 mg tablet Allergies Allergy/AdvReac Type Severity Reaction Status Date / Time No Known Allergies Allergy Verified 04/14/25 18:36 Review of Systems Review of Systems Systems Reviewed: All systems reviewed, normal except as documented ED Exam Narrative Physical exam: GENERAL APPEARANCE: alert and oriented x 4, well-developed, well-nourished, no acute distress VITALS: All vitals were reviewed and the pulse ox is 95% on room air, which is normal according to my interpretation. HEENT: Normocephalic, atraumatic; pupils equal, round, reactive to light; EOMI; mucous membranes pink, moist; oropharynx clear NECK: Supple LUNGS: CTABL; no wheezes, no rales, no rhonchi HEART: Regular rate, regular rhythm; normal S1, S2; no murmurs ABDOMEN: non distended; normal BS; soft, no tenderness, no guarding, no rebound; no masses, no organomegaly, no hernia BACK: no CVA tenderness EXTREMITIES: atraumatic; no edema NEUROLOGIC: awake; alert and oriented x4; cranial nerves II-XII grossly intact; no focal sensory or motor deficits PSYCHIATRIC: appropriate mood and affect SKIN: warm, dry, normal color; no rashes Course Quality Measures none Orders Category Date Time Status Bedside COVID-19 Antigen Test NOW Care 04/14/25 19:07 Active Bedside Influenza A&B Antigen Test NOW Care 04/14/25 19:07 Completed EKG (ED ONLY) *Do not use* NOW Care 04/14/25 19:07 Completed EKG (ED Only) Stat Exams 04/14/25 19:07 Draft XR chest 1V portable Stat Exams 04/14/25 19:07 Completed Alcohol, Blood Medical Stat Lab 04/14/25 19:17 Completed CBC Stat Lab 04/14/25 19:17 Completed Comprehensive Metabolic Panel Stat Lab 04/14/25 19:17 Completed Lactate (Lactic Acid) Stat Lab 04/14/25 19:17 Completed Procalcitonin Stat Lab 04/14/25 19:17 Completed Troponin I Stat Lab 04/14/25 19:17 Completed Vital Signs Vital signs: Vital Signs Temperature 100.2 F 04/14/25 18:43 Pulse Rate 83 04/14/25 18:43 Respiratory Rate 20 04/14/25 18:43 Blood Pressure 107/68 04/14/25 18:43 Pulse Oximetry (%) 96 04/14/25 18:43 Oxygen Delivery Method Room Air 04/14/25 18:43 Chest Pain MDM Narrative MDM Narrative:: Scribe Attestation: 04/15/25 - Ny Landers am scribing for and in the presence of Dr. Aquino. Patient data External records reviewed:: [facility] previous records (Per chart review, patient was seen here on 04/09/25 for chronic alcoholism.) Clinical information provided by:: patient Social determinants that could affect healthcare access:: alcohol use Patient has the following chronic illnesses:: esophageal varices s/p banding, portal hypertension, alcohol associated cirrhosis, hypertensive portal gastropathy How is presenting disease/condition affected by chronic disease/condition?: uneffected by Evaluation data The following diagnostics were reviewed and interpreted by me:: lab results Lab and/or radiology exams considered but not ordered:: none Interpretation Summary: WBC normal, HnH 8.5/26.0 (chronic), Lactic Acid normal, Troponin normal, Procalcitonin normal, Blood Alcohol 408.6, COVID/Influenza negative. EKG done at 1907, NSR, rate of 80, normal axis, normal intervals, no acute ST or T wave changes, according to my interpretation. [facility] Report Signed Patient: KOLBY RON. Record#: [id number] Birthdate: 1980 Age/Sex: 44 / M Location: [facility] Attending Dr: Ordering Physician: Gavin Stuart PA-C Date of Service: 04/14/25 Procedure(s): XR chest 1V portable Accession Number(s): [id number] cc: Zach Masters MD; NO PRIMARY/FAMILY,PHYSICIAN; Gavin Stuart PA-C~ Examination: PA chest single view TECHNIQUE: Upright PA chest single view Date and time: April 14, 2025 1921 hours Comparison September 19, 2024 INDICATION: Chest pain beginning this morning FINDINGS: Minimal prominence left ventricle No pneumonia or pulmonary edema Multiple right-sided rib fractures IMPRESSION: No active disease Dictated By: Zach Masters MD Signed By: <Electronically signed by Zach Masters MD in OV> 04/14/252043 Medications / Prescriptions Medications or Prescriptions considered but not ordered:: none Medication administrations:: none Consultations Consultation(s) initiated? (list below): No Diagnosis Chest Pain Differential Diagnosis: other (alcohol intoxication, ACS, pneumonia) Most likely diagnosis given after review of the tests above:: see clinical impression below Admission Indicated Admission indicated?: not indicated Admission Request Was there a request for admission?: No Disposition Plan Disposition Plan: Discharge Discharge Attestation Discharge Attestation: The patient and all family members were given an opportunity to ask questions and understood the discharge instructions. Discharge instructions specifically effects, indications for sooner follow up or return to the emergency department, and the expected course of current diagnosis. Patient condition: Stable Discharge Plan Plan Patient Disposition: HOME (Self Care) Prescriptions/Referrals Prescriptions/Med Rec: No Action midodrine 5 mg tablet 5 mg PO TID Qty: 90 0RF Rx Instructions: do not give last dose of day after 6PM or within 4 hrs of bedtime pantoprazole 40 mg tablet,delayed release (/EC) 40 mg PO QDAY Qty: 60 0RF folic acid 1 mg Tablet 1 mg PO QDAY 30 Days Qty: 30 0RF thiamine mononitrate (vit B1) 100 mg Tablet 100 mg PO QDAY Qty: 30 0RF sucralfate 1 gram tablet 1 g PO BID Qty: 60 0RF Referrals: No Primary/Family,Physician [Primary Care Provider] - In 1 week Problem List Clinical Impression: Alcohol intoxication Patient/Caregiver Discharge Instructions Education Materials: ED Alcohol Intoxication Print Language: Kiswahili Stand Alone Forms: Kallie Award Info., Patient Portal Info Letter
== END 2025-04-15 06:08 | disposition home or self-care (01) ==
PROVIDERS: Physician Assistant; Emergency Provider Emergency Medicine
DX: F10.129 Alcohol abuse with intoxication, unspecified (principal); R07.9 Chest pain, unspecified; R05.9 Cough, unspecified; Y90.8 Blood alcohol level of 240 mg/100 ml or more
CPT/HCPCS: 36415; 71045; 80053; 80320; 83605; 84145; 84484; 85025; 87400; 87811; 93005; 99283; G0480

== ENCOUNTER 2025-05-09 22:41 | Inpatient (IN) | payer MEDICAID, SELFPAY ==
[2025-05-09 22:57] VITALS: PULSE 90; RESP 18; O2SAT 96
[2025-05-09 23:07] VITALS: BP 121/78; PULSE 111; RESP 20; TEMP 36.9; O2SAT 96
--- NOTE | 2025-05-09 23:49 | PD.EDADULT ---
ED General RME/HPI General Chief complaint: Abdominal Pain Stated complaint: NOSEBLEED Time Seen by Provider: 05/09/25 22:48 Source: patient Arrival date/time: 05/09/25 22:41 RME / HPI RME / HPI narrative: See MDM Related Data Previous Rx's ?Medication ?Instructions ?Recorded midodrine 5 mg tablet 5 mg PO TID #90 tabs 05/26/24 pantoprazole 40 mg tablet,delayed 40 mg PO QDAY #60 tabs 08/11/24 release sucralfate 1 gram tablet 1 g PO BID #60 tabs 04/02/25 thiamine mononitrate (vit B1) 100 100 mg PO QDAY #30 tabs 04/02/25 mg tablet Allergies Allergy/AdvReac Type Severity Reaction Status Date / Time No Known Allergies Allergy Verified 05/09/25 22:56 Review of Systems Review of Systems Systems Reviewed: All systems reviewed, normal except as documented ED Exam Narrative Physical exam: GENERAL: NAD, AAOx3, blood around clothing and around mouth area HEENT: Moist mucosa. Eyes open, symmetrical, & clear, CARDIO: Heart RRR, no obvious murmurs PULM: No noted coughing/dyspnea CTA B/L, no R/W/R GI: Abdomen soft, nondistended, no pain on palpation. BSx4 SKIN/MSK/EXT: Left upper extremity deformity on the left fourth finger, no pain on palpation. Pedal pulses present B/L NEURO: AAOx3, no focal neuro deficits, able to move all 4 extremities Course Quality Measures none Orders Category Date Time Status Blood Sugar Check-Sandostatin Q1HR Care 05/10/25 01:25 Active Runner Man Q4H START 00 Care 05/09/25 23:55 Active Continuous Pulse Oximetry NOW Care 05/09/25 23:55 Completed Insert IV NOW Care 05/09/25 23:46 Active Intake and Output Routine Care 05/09/25 23:55 Ordered NPO NOW Care 05/09/25 23:55 Active Occult Blood,Stool (Nursing) NOW Care 05/09/25 23:56 Active Consult to Gastroenterology Stat Cons 05/10/25 02:18 Ordered Alcohol, Urine Stat Lab 05/09/25 23:48 Ordered Ammonia Stat Lab 05/09/25 23:56 Completed Amylase Stat Lab 05/09/25 23:46 Completed CBC Stat Lab 05/09/25 23:46 Completed CMP [Comprehensive Metabolic Panel] Stat Lab 05/09/25 23:46 Completed Drug Screen,Urine Stat Lab 05/09/25 23:48 Ordered Lipase Stat Lab 05/09/25 23:46 Completed Magnesium Stat Lab 05/09/25 23:46 Completed Troponin I Stat Lab 05/09/25 23:46 Completed UA [Urinalysis] Stat Lab 05/09/25 23:48 Ordered Octreotide Acet Inj [SandoSTATIN Inj] Med 05/10/25 01:07 Discontinued 50 mcg IV X1 ONE Ondansetron Inj [Zofran Inj] Med 05/09/25 23:56 Active 4 mg IVP Q1H PRN Pantoprazole Inj [Protonix Inj] Med 05/09/25 23:55 Discontinued 40 mg IVP X1 ONE Pantoprazole Inj [Protonix Inj] Med 05/09/25 23:46 Discontinued 80 mg IVP X1 ONE Sodium Chloride 0.9% 1000 ml [Ns] 1,000 ml Med 05/09/25 23:55 Discontinued IV 999 mls/hr Sodium Chloride 0.9% [Ns] 100 ml Med 05/09/25 23:48 Active Octreotide Acet Inj [SandoSTATIN Inj] 1,000 mcg IV 50 mcg/hr Vital Signs Vital signs: Vital Signs Temperature 98.4 F 05/09/25 23:07 Pulse Rate 111 H 05/09/25 23:07 Respiratory Rate 20 05/09/25 23:07 Blood Pressure 121/78 05/09/25 23:07 Pulse Oximetry (%) 96 05/09/25 23:07 Oxygen Delivery Method Room Air 05/09/25 23:07 Discharge Plan Plan Patient Disposition: Admit Acute Care w/in Hospital Prescriptions/Referrals Prescriptions/Med Rec: No Action midodrine 5 mg tablet 5 mg PO TID Qty: 90 0RF Rx Instructions: do not give last dose of day after 6PM or within 4 hrs of bedtime pantoprazole 40 mg tablet,delayed release (DR/EC) 40 mg PO QDAY Qty: 60 0RF thiamine mononitrate (vit B1) 100 mg Tablet 100 mg PO QDAY Qty: 30 0RF sucralfate 1 gram tablet 1 g PO BID Qty: 60 0RF Referrals: No Primary/Family,Physician [Primary Care Provider] - In 1 week Problem List Clinical Impression: Hematemesis Patient/Caregiver Discharge Instructions Print Language: [place] Islander Stand Alone Forms: Kallie Love Info., Patient Portal Info Letter MDM Narrative MDM hospital course: 44-year-old male with history of alcohol abuse who presented to the ED due to bloody vomiting. Patient states that he has had at least 2-3 episodes of bloody vomiting today. He also endorses some black tarry stools has been going on for a week. He states he usually drinks 3x25 ounce tall cans of beer every day. He drank 2 tall cans today last drink was this morning. He also endorses some headache anxiety and some tremors in the bilateral upper extremities. He states he has only felt like this when he was in retirement and was unable to get alcohol but the symptoms come down when they gave him a pill that he does not know which 1. He denies fever, chills, smoking, illicit substance use, denies abdominal pain. 2353: Labs ordered, octreotide, PPI ordered 0210: Labs reviewed, spoke to GI specialist recommended admission for octreotide drip, PPI and possible EGD 0219: Spoke to IM team who will accept the patient for admission. Clinical Information Provided by patient Medical Records Reviewed [facility] Chronic Illness/Social Conditions which may negatively complicate care or outcome(s)-explain: ETOH/drugs/substance abuse EKG EKG not done Lab Interpretation Labs: interpreted by me Lab(s) interpretation(s): Normocytic anemia, thrombocytopenia, hypomagnesemia, elevated T. bili, AST 121, elevated ammonia levels Imaging Imaging interpretation: none Medication Administration(s) Medication Administration History Octreotide Acetate 1,000 mcg/ (Sodium Chloride) 102 mls @ 5.1 mls/hr IV .Q20H ONE; Protocol Stop: 05/10/25 19:47 Last Admin: 05/10/25 01:22 Dose: 50 mcg/hr, 5.1 mls/hr Documented By: LISA Ondansetron HCl (Ondansetron Inj 2 Mg/Ml Inj 2 Ml) 4 mg IVP Q1H PRN PRN Reason: PERSISTENT NAUSEA OR VOMITING Discontinued Medications Sodium Chloride (Ns) 1,000 mls @ 999 mls/hr IV .Q1H1M ONE Stop: 05/10/25 00:55 Last Infusion: 05/10/25 02:03 Dose: Infused Documented By: Admin: 05/10/25 00:51 Dose: 999 mls/hr Documented By: LISA Octreotide Acetate (Octreotide Acet Inj 50 Mcg/Ml Vial) 50 mcg IV X1 ONE Stop: 05/10/25 01:08 Last Admin: 05/10/25 01:21 Dose: 50 mcg Documented By: LISA Pantoprazole Sodium (Pantoprazole Inj 40 Mg Vial) 80 mg IVP X1 ONE Stop: 05/09/25 23:47 Last Admin: 05/10/25 00:45 Dose: Not Given Documented By: LISA Non-Admin Reason: Discontinued Pantoprazole Sodium (Pantoprazole Inj 40 Mg Vial) 40 mg IVP X1 ONE Stop: 05/09/25 23:56 Last Admin: 05/10/25 01:09 Dose: 40 mg Documented By: LISA See above Diagnosis Differential diagnosis: Alcohol withdrawal, hematemesis, hematochezia Dispositon Disposition: Admit
[2025-05-10] VITALS (20 sets, daily range): BP systolic 106–137; BP diastolic 69–96; PULSE 81–123; RESP 14–20; TEMP 36.7–37.6; O2SAT 93–100; BMI 26.2
[2025-05-10 00:25] LABS: Basophils # (Auto) 0.1 Thou/mm3 (0.0-0.2); Basophils % (Auto) 1 % (0-2.5); Eosinophils # (Auto) 0.1 Thou/mm3 (0.0-0.5); Eosinophils % (Auto) 3 % (0-10); Hematocrit 27.7 % (41.0-53.0); Hemoglobin 8.9 g/dL (13.5-16.0); Immature Granulocytes Auto 0.01 Thou/mm3 (0.00-0.00); Lymphocytes # (Auto) 0.7 Thou/mm3 (1.0-4.8); Lymphocytes % (Auto) 19 % (10-50); Mean Corpuscular HGB Conc 32.1 g/dl (31.0-37.0); Mean Corpuscular Hemoglobin 28.3 pg (25.0-35.0); Mean Corpuscular Volume 88 fL (80-100); Monocytes # (Auto) 0.3 Thou/mm3 (0.0-0.8); Monocytes % (Auto) 8 % (0-12); Neutrophils # (Auto) 2.6 Thou/mm3 (1.8-7.7); Neutrophils % (Auto) 69 % (37-80); Nucleated Red Blood Cell # 0.00 Thou/mm3 (0.00-0.00); Nucleated Red Blood Cell % 0 /100 WBC (0); RDW Standard Deviation 73.9 fL (35.1-43.9); Red Blood Count 3.14 Miln/mm3 (4.50-5.90); White Blood Count 3.8 Thou/mm3 (3.8-10.6)
[2025-05-10 00:35] LABS: Platelet Count 20 Thou/mm3 (140-440)
[2025-05-10 00:41] LABS: Ammonia 39 uMol/L (11-32); Slide Review Platelets confirmed
[2025-05-10] MEDS: SODIUM CHLORIDE 0.9% 1000 ML 1,000 ML 999 ML IV (00:51)
[2025-05-10] MEDS: OCTREOTIDE ACET INJ 50 mCg/ML VIAL IV (01:21)
[2025-05-10] MEDS: OCTREOTIDE ACET INJ 1,000 MCG in SODIUM CHLORIDE 0.9% 100 ML 5.1 MCG IV ×2 (01:22→19:38)
[2025-05-10 01:40] LABS: Alanine Aminotransferase 20 U/L (10-49); Albumin, Serum 4.1 gm/dL (3.5-5.0); Albumin/Globulin Ratio 1.0 (1.2-2.2); Alkaline Phosphatase 195 U/L (46-116); Anion Gap 12 (7-16); Aspartate Amino Transferase 121 U/L (0-34); BUN/Creatinine Ratio 8 Ratio (12-20); Bilirubin,Total 2.3 mg/dL (0.3-1.2); Blood Urea Nitrogen < 5 mg/dL (9-23); Calcium 8.5 mg/dL (8.3-10.6); Calcium (Corrected) 8.5 mg/dL (8.5-10.1); Carbon Dioxide 26.8 mMol/L (20.0-31.0); Chloride 102 mMol/L (98-107); Creatinine (Component) 0.6 mg/dL (0.6-1.3); Estimated Creatinine Clearance 143.3 mL/min (>60); Globulin 4.1 gm/dL (2.3-3.5); Glucose 114 mg/dL (74-106); Lipase 37 U/L (12-53); Magnesium 1.5 mg/dL (1.6-2.6); Osmolality,Calculated 279 (275-295); Potassium 3.6 mMol/L (3.4-5.1); Sodium 141 mMol/L (136-145); Total Protein 8.2 gm/dL (5.7-8.2); Troponin I 0.028 ng/mL (0.0-0.045); eGFR > 60 See Note
[2025-05-10 01:53] LABS: Amylase 113 U/L (30-118)
[2025-05-10] MEDS: Magnesium Sulfate 4 GM Ivpb 4 GM/50 ML BAG IV (03:07)
--- NOTE | 2025-05-10 03:14 | ESHP_ITS ---
Documentation for date of: 05/09/25 [facility] History of Present Illness History of present illness: Jose Wells is a 44-year-old male with a PMH of alcohol abuse, upper GI bleeding, varices s/p banding, portal hypertension, alcohol-associated cirrhosis, and hypertensive portal gastropathy who presented to the ED due to bloody vomiting. He has previously been seen in the hospital for alcohol intoxication with the most recent visit being on 04/15/2025 as well as a prior episode of upper GI bleeding for which he was seen most recently on 03/28/2025. Patient states that he began vomiting this morning and that he has vomited blood twice so far today. When asked if he thought anything triggered this current episode of hematemesis he replied that he liked beer too much . Patient also complained about stomach pain which began at a similar time as well as pain in the kidneys . When asked about his drinking habits, patient stated that he usually drank 3x25 ounce tall cans of beer everyday and that his last drink was this morning. In the ED, patient's stated complaint was abdominal pain and nosebleed and on physical exam there was noted blood on his clothing and around the mouth area. Patient also complained of black tarry stools that have been ongoing for a week. He also endorsed some headache, anxiety, and tremors in the bilateral upper extremities. CBC was ordered and showed low RBCs at 3.14, Hgb at 8.9, Hct at 27.7, and platelet count at 20. Labs showed elevated AST at 121 consistent with alcohol-induced hepatocellular pattern of liver injury. Other values that were elevated include bilirubin at 2.3, alkaline phosphatase at 195, and ammonia at 39 (normal value 11-32). Patient was admitted for workup and management of his upper GI bleeding as well as management of alcohol withdrawal symptoms via [facility] protocol. Review of Systems Review of Systems Narrative Review of Systems: General: Denies fevers or chills HEENT: Denies congestion or sore throat Heart: Denies chest pain or palpitations Lungs: Endorses cough producing white sputum. Denies shortness of breath Abdomen: Endorses nausea and vomiting. Endorses abdominal tenderness to palpation in RUQ and RLQ. Endorses melena. Denies constipation, diarrhea, or blood in stool Genitourinary: Denies frequency, urgency, dysuria, or hematuria Neurology: Denies any changes in vision, weakness or difficulty speaking Review of systems otherwise negative except what is mentioned above. Past Medical History Past Medical History Comments PMH COMMENT: PMH: none PSH: none Medications: yes but he does not know the names Allergies: none Family Hx: diabetes in dad, grandma also has diabetes Social Hx: 3 x 25 ounces drinks per day, no smoking or drugs, homeless Exam Vital Signs Temp Pulse Resp BP Pulse Ox O2 Del Method 98.5 F 107 H 16 112/83 95 Room Air 05/10/25 03:10 05/10/25 03:10 05/10/25 03:10 05/10/25 03:10 05/10/25 03:10 05/10/25 03:10 Narrative Exam Physical Exam: General: Alert, no acute distress. Skin: Warm, dry, intact, no obvious rash. Head: Normocephalic, atraumatic. Eye: Normal conjunctiva, PERRL. Throat: Two scabbed lesions noted on bottom lip. Oral mucosa moist. No obvious lesions in oropharynx. Cardiovascular: Slightly tachycardic. No murmur, +S1/S2. Respiratory: Prolonged expiratory wheezing heard on auscultation. Gastrointestinal: Abdominal tenderness to palpation in RUQ and RLQ. Soft, non- distended. No guarding or rebound tenderness. Extremities: No edema, no cyanosis, no clubbing. 2+ radial pulse bilaterally, 2+ posterior tibial pulse bilaterally. Neuro: No focal deficits observed. Conversant, moving all extremities. No overt cerebellar signs/incoordination. Psychiatric: Cooperative, appropriate affect Results: Labs 05/10/25 04:50 05/10/25 00:00 Labs: Short CBC 05/10/25 Range/Units 00:00 WBC 3.8 (3.8-10.6) Thou/mm3 Hgb 8.9 L (13.5-16.0) g/dL Hct 27.7 L (41.0-53.0) % Plt Count 20 L* D (140-440) Thou/mm3 BMP 05/10/25 00:00 Sodium 141 Potassium 3.6 Chloride 102 Carbon Dioxide 26.8 BUN < 5 L Creatinine 0.6 Glucose 114 H Calcium 8.5 Cardiac Enzymes 05/10/25 Range/Units 00:00 Troponin I 0.028 (0.0-0.045) ng/mL Liver Function 05/10/25 Range/Units 00:00 Total Bilirubin 2.3 H (0.3-1.2) mg/dL AST 121 H (0-34) U/L ALT 20 (10-49) U/L Alkaline Phosphatase 195 H (46-116) U/L Albumin 4.1 (3.5-5.0) gm/dL Quality Measures Quality Measures none Medications Home Medications and Allergies Allergies Allergy/AdvReac Type Severity Reaction Status Date / Time No Known Allergies Allergy Verified 05/09/25 22:56 Visit Medications Chlordiazepoxide HCl (Chlordiazepoxide Hcl 25 Mg Capsule) 25 mg PO Q8HR BRANDI Stop: 05/11/25 05:59 Folic Acid (Folic Acid 1 Mg Tablet) 1 mg PO BID BRANDI Stop: 05/15/25 08:59 Octreotide Acetate 1,000 mcg/ (Sodium Chloride) 102 mls @ 5.1 mls/hr IV .Q20H ONE; Protocol Stop: 05/10/25 19:47 Last Admin: 05/10/25 01:22 Dose: 50 mcg/hr, 5.1 mls/hr Magnesium Sulfate (Magnesium Sulfate Ivpb) 4 gm in 50 mls @ 12.5 mls/hr IV X1 ONE Stop: 05/10/25 06:22 Last Admin: 05/10/25 03:07 Dose: 12.5 mls/hr Lactated Ringer's (Lactated Ringers) 1,000 mls @ 75 mls/hr IV .[id number] BRANDI Stop: 06/09/25 02:59 Ceftriaxone Sodium/Dextrose (Rocephin/D5w 1gm Iv Premix) 1 gm in 50 mls @ 100 mls/hr [facility] Stop: 05/17/25 03:04 Lorazepam (Lorazepam 2 Mg/Ml Vial) 0.5 mg IV Q2HR PRN PRN Reason: CIWA SCORE 8-13 Stop: 05/15/25 03:06 Lorazepam (Lorazepam 2 Mg/Ml Vial) 1 mg IV Q2HR PRN PRN Reason: CIWA SCORE 14-19 Stop: 05/15/25 03:06 Lorazepam (Lorazepam 2 Mg/Ml Vial) 2 mg IV Q2HR PRN PRN Reason: CIWA SCORE 20-25 Stop: 05/15/25 03:06 Lorazepam (Lorazepam 2 Mg/Ml Vial) 2 mg IVP X1 PRN PRN Reason: Breakthrough Agitation Ondansetron HCl (Ondansetron Inj 2 Mg/Ml Inj 2 Ml) 4 mg IVP Q1H PRN PRN Reason: PERSISTENT NAUSEA OR VOMITING Pantoprazole Sodium (Pantoprazole Inj 40 Mg Vial) 40 mg IVP Q12HR BRANDI Stop: 06/09/25 08:59 Thiamine HCl (Thiamine 100 Mg Tablet) 100 mg PO BID BRANDI Stop: 05/15/25 08:59 Discontinued Medications Sodium Chloride (Ns) 1,000 mls @ 999 mls/hr IV .Q1H1M ONE Stop: 05/10/25 00:55 Last Infusion: 05/10/25 02:03 Dose: Infused Magnesium Oxide (Magnesium Oxide 400 Mg Tablet) 400 mg PO X1 ONE Stop: 05/10/25 02:23 Octreotide Acetate (Octreotide Acet Inj 50 Mcg/Ml Vial) 50 mcg IV X1 ONE Stop: 05/10/25 01:08 Last Admin: 05/10/25 01:21 Dose: 50 mcg Pantoprazole Sodium (Pantoprazole Inj 40 Mg Vial) 80 mg IVP X1 ONE Stop: 05/09/25 23:47 Last Admin: 05/10/25 00:45 Dose: Not Given Pantoprazole Sodium (Pantoprazole Inj 40 Mg Vial) 40 mg IVP X1 ONE Stop: 05/09/25 23:56 Last Admin: 05/10/25 01:09 Dose: 40 mg Assessment & Plan Assessment #Upper GI bleed #Thrombocytopenia #Anemia Working Dx: bleeding esophageal varices 2/2 alcohol-associated cirrhosis Differential Dx: Stacie-Alicia tear 2/2 forceful vomiting, peptic ulcer disease, esophagitis/gastritis, angiodysplasia Patient's current hematemesis and melena is most likely 2/2 bleeding esophageal varices in the setting of chronic alcohol abuse with liver cirrhosis and past history of varices requiring endoscopic band ligation The current presentation could also be attributed to the conditions in the list of differentials but are less likely the main etiology CBC showed low RBCs at 3.14, Hgb at 8.9, Hct at 27.7, and platelet count at 20. -Per GI recommendations, patient has been started on octreotide drip as well as PPI BID -Per GI recommendations, patient has been made NPO -Plan to have GI perform EGD for diagnostic and therapeutic purposes (possible endoscopic band ligation for bleeding varices) -Patient's low platelet count of 20 with active bleeding are an indication for platelet transfusion -Will transfuse patient with pRBC's should Hgb fall below 7 #Alcohol withdrawal symptoms #Acute alcohol intoxication Patient endorses heavy drinking in recent history and that he has drank today On physical exam, patient showed symptoms of possible alcohol withdrawal in the form of resting hand tremors Labs showed elevated AST at 121 consistent with alcohol-induced hepatocellular pattern of liver injury. Other values that were elevated include bilirubin at 2.3, alkaline phosphatase at 195, and ammonia at 39 (normal value 11-32). Utox was ordered but has not resulted at this moment in time -Patient has been placed on CIWA protocol for management of alcohol withdrawal symptoms should they arise -Follow up on Utox to gauge patient's most recent alcohol intake and to rule out the contribution of other substances to patient's current presentation Hospital Management: Disposition: management of upper GI bleeding and alcohol withdrawal symptoms Fluids: LR 75 mL/hr Diet: NPO DVT Prophylaxis: SCDs CODE STATUS: Full Code I have examined the patient and conferred with my attending, Dr. Miller, and my senior resident, Dr. Ricardo Brothers, regarding them. -Manuel Jimenes, PGY-1 Attending Provider Attestation/Addendum Face to face evaluation was performed by me. I have personally seen and examined the patient. I discussed the assessment and plan with the entire medicine team. I reviewed available medical records, imaging studies, laboratory results. I agree with the above subjective data, objective findings, assessment and plan except as corrected by me or noted below Upper GI bleed History of esophageal varices, possible variceal bleed Hematemesis Hx of liver cirrhosis due to alcohol Alcohol dependance syndrome Thrombocytopenia - Octreotide gtt, PPI IV BID , npo, GI consult, possible EGD - CIWA -Monitor Hb and transfuse to keep Hb >7 - PLTS transfusion More than > 30 minutes spent on the encounter
[2025-05-10] MEDS: cefTRIAXone/D5w 1gm IV premix 1 GM/50 ML BAG IV (04:05)
[2025-05-10 04:57] LABS: Basophils # (Auto) 0.0 Thou/mm3 (0.0-0.2); Basophils % (Auto) 1 % (0-2.5); Eosinophils # (Auto) 0.1 Thou/mm3 (0.0-0.5); Eosinophils % (Auto) 4 % (0-10); Hematocrit 25.5 % (41.0-53.0); Immature Granulocytes Auto 0.01 Thou/mm3 (0.00-0.00); Lymphocytes # (Auto) 0.6 Thou/mm3 (1.0-4.8); Lymphocytes % (Auto) 19 % (10-50); Mean Corpuscular HGB Conc 33.3 g/dl (31.0-37.0); Mean Corpuscular Hemoglobin 28.7 pg (25.0-35.0); Mean Corpuscular Volume 86 fL (80-100); Monocytes # (Auto) 0.2 Thou/mm3 (0.0-0.8); Monocytes % (Auto) 7 % (0-12); Neutrophils # (Auto) 2.2 Thou/mm3 (1.8-7.7); Neutrophils % (Auto) 70 % (37-80); Nucleated Red Blood Cell # 0.00 Thou/mm3 (0.00-0.00); Nucleated Red Blood Cell % 0 /100 WBC (0); RDW Standard Deviation 72.2 fL (35.1-43.9); Red Blood Count 2.96 Miln/mm3 (4.50-5.90); White Blood Count 3.1 Thou/mm3 (3.8-10.6)
[2025-05-10 04:58] LABS: Hemoglobin 8.5 g/dL (13.5-16.0); Platelet Count 16 Thou/mm3 (140-440)
[2025-05-10] MEDS: RINGERS LACTATED 1000 ML 1,000 ML 75 ML IV (05:00)
[2025-05-10 05:31] LABS: Alanine Aminotransferase 18 U/L (10-49); Albumin, Serum 3.5 gm/dL (3.5-5.0); Albumin/Globulin Ratio 1.0 (1.2-2.2); Alkaline Phosphatase 166 U/L (46-116); Anion Gap 14 (7-16); Aspartate Amino Transferase 110 U/L (0-34); BUN/Creatinine Ratio 10 Ratio (12-20); Bilirubin,Total 2.3 mg/dL (0.3-1.2); Blood Urea Nitrogen < 5 mg/dL (9-23); Calcium 7.5 mg/dL (8.3-10.6); Calcium (Corrected) 7.9 mg/dL (8.5-10.1); Carbon Dioxide 24.6 mMol/L (20.0-31.0); Chloride 105 mMol/L (98-107); Creatinine (Component) 0.5 mg/dL (0.6-1.3); Estimated Creatinine Clearance 171.9 mL/min (>60); Globulin 3.6 gm/dL (2.3-3.5); Glucose 110 mg/dL (74-106); Magnesium 2.0 mg/dL (1.6-2.6); Osmolality,Calculated 285 (275-295); Phosphorous 4.8 mg/dL (2.4-5.1); Potassium 3.7 mMol/L (3.4-5.1); Sodium 144 mMol/L (136-145); Total Protein 7.1 gm/dL (5.7-8.2); eGFR > 60 See Note
[2025-05-10 05:34] LABS: Slide Review Platelets confirmed
--- NOTE | 2025-05-10 07:50 | PC.NURSE ---
Report recieved from pm nurse, patient to er with c/o vomiting blood, abdominal pain and dark stools. Currently patient awaiting bed on floor, admitted to [facility] on the seconds handler. Patient denies pain, skin is warm dry and pink, patient c/p mild nausea. Patient has sandostatin gtt running at 50mcg/hr via 20g ivl to right fa, and LR via 20g right hand at 75mls/hr, patient has sz. precautions in place, call light within reach. Patient has no other needs at this time,
[2025-05-10 07:54] LABS: Collection Type, Urine Clean Catch; Squamous Epithelial Cell,Urine 0 /hpf (0-5)
[2025-05-10 08:07] LABS: Bacteria,Urine Rare; Bilirubin,Urine Negative (Negative); Blood,Urine Negative (Negative); Clarity,Urine Turbid (Clear/Hazy); Color,Urine Lt-Yellow (Lt Yel-Yel); Glucose, Urine Negative (Negative); Ketones,Urine Negative (Negative); Leukocyte Esterase,Urine Negative (Negative); Nitrite,Urine Negative (Negative); PH,Urine 6.5 (5.0-7.0); Protein,Urine Negative (Neg - Trace); RBC,Urine 1 /hpf (0-3); Specific Gravity,Urine 1.010 (1.001-1.035); Urobilinogen,Urine Negative mg/dL (0.0-1.0); WBC,Urine 1 /hpf (0-5)
[2025-05-10 08:22] LABS: Amphetamine/Methamp Scrn,U Negative (Negative); Barbiturate Screen,Urine Negative (Negative); Benzodiazepines Screen,Urine Negative (Negative); Benzoylecgonine Screen, Ur Negative (Negative); Fentanyl Screen,Urine Negative (Negative); Opiate Screen,Urine Negative (Negative); THC Screen,Urine Negative (Negative)
[2025-05-10] MEDS: THIAMINE INJ 100 MG/ML VIAL 2 ML IVP (09:55)
[2025-05-10] MEDS: FOLIC ACID INJ 1 MG/0.2 ML IVP (09:55)
[2025-05-10 10:05] LABS: Alcohol, Urine Positive (Negative)
[2025-05-10 10:08] LABS: INR 1.4 (0.9-1.3); Prothrombin Time 15.0 Seconds (9.0-12.2)
[2025-05-10] MEDS: ONDANSETRON INJ 2 MG/ML INJ 2 ML 4 MG IVP (14:51)
--- NOTE | 2025-05-10 15:28 | PC.NURSE ---
Spoke with Ivana in Endoscopy states she will send Dr. Perla to ER for Consult.
--- NOTE | 2025-05-10 16:14 | PC.NURSE ---
Pre operative check list completed with educational interpreter services, Shira ID#[id number]
--- NOTE | 2025-05-10 17:31 | ESPR_ITS ---
<Statement entered by Elmira Lya MD - 05/16/25 11:44> I reviewed above note and agree with findings and plans. I have also personally examined the patient with medicine team and went over assessment and plan with medical team including manager international and resident physician. Documentation for date of: 05/10/25 Subjective Subjective Interval history: The patient evaluated the bedside, visibly anxious and shaky, on CIWA protocol, received Librium and lorazepam per CIWA protocol. Currently on octreotide drip. Received 1 platelet transfusion. No more hematemesis episodes reported since coming to the emergency room. Did report black tarry stools. Patient does not meet criteria for IV steroids for treatment of alcoholic cirrhosis. Technical Spec Dr. Perla is consulted, pending recommendations. Exam Vital Signs Temp Pulse Resp BP Pulse Ox O2 Del Method O2 Flow Rate 99.0 F 96 16 117/78 99 Room Air 2 05/10/25 16:02 05/10/25 16:02 05/10/25 16:02 05/10/25 16:02 05/10/25 16:02 05/10/25 16:02 05/10/25 14:45 Narrative Exam General: AOx3, cooperative but anxious, noted shakiness on extension of upper extremities. Skin: Intact, no cyanosis or edema noted. HEENT: Atraumatic/normocephalic, TAMIR, neck supple Heart: RRR, S1 and S2 without clicks or murmurs, tachycardic Lungs: Clear on auscultation bilaterally, no difficulty breathing Abdomen: Soft, nontender. Bowel sounds present . Vascular: Peripheral pulses palpable Neuro: No focal neurological deficits noted. Objective Labs 05/10/25 04:50 05/10/25 04:50 Labs: Laboratory Results - last 24 hr 05/10/25 05/10/25 05/10/25 00:00 04:50 07:40 WBC 3.8 3.1 L RBC 3.14 L 2.96 L Hgb 8.9 L 8.5 L Hct 27.7 L 25.5 L MCV 88 86 MCH 28.3 28.7 MCHC 32.1 33.3 RDW Std Deviation 73.9 H 72.2 H Plt Count 20 L* D 16 L* Neut % (Auto) 69 70 Lymph % (Auto) 19 19 [place] % (Auto) 8 7 Eos % (Auto) 3 4 Baso % (Auto) 1 1 Neut # (Auto) 2.6 2.2 Lymph # (Auto) 0.7 L 0.6 L [place] # (Auto) 0.3 0.2 Eos # (Auto) 0.1 0.1 Baso # (Auto) 0.1 0.0 Immature Gran # (Auto) 0.01 H 0.01 H Absolute Nucleated RBC 0.00 0.00 Immature Gran % 0 0 Nucleated RBC % 0 0 PT 15.0 H INR 1.4 H Sodium 141 144 Potassium 3.6 3.7 Chloride 102 105 Carbon Dioxide 26.8 24.6 Anion Gap 12 14 BUN < 5 L < 5 L Creatinine 0.6 0.5 L Estim Creat Clear Calc 143.3 171.9 eGFR > 60 > 60 BUN/Creatinine Ratio 8 L 10 L Glucose 114 H 110 H Calculated Osmolality 279 285 Calcium 8.5 7.5 L Corrected Calcium 8.5 7.9 L Phosphorus 4.8 Magnesium 1.5 L 2.0 Total Bilirubin 2.3 H 2.3 H AST 121 H 110 H ALT 20 18 Alkaline Phosphatase 195 H 166 H D Ammonia 39 H Troponin I 0.028 Total Protein 8.2 7.1 Albumin 4.1 3.5 D Globulin 4.1 H 3.6 H Albumin/Globulin Ratio 1.0 L 1.0 L Amylase 113 Lipase 37 Ur Collection Type Clean Catch Urine Color Lt-Yellow Urine Clarity Turbid A Urine pH 6.5 Ur Specific [place] 1.010 Urine Protein Negative Urine Glucose (UA) Negative Urine Ketones Negative Urine Blood Negative Urine Nitrite Negative Urine Bilirubin Negative Urine Urobilinogen (Auto) Negative Ur Leukocyte Esterase Negative Urine RBC 1 Urine WBC 1 Ur Squamous Epith Cells 0 Urine Bacteria Rare Urine Opiates Screen Negative Urine Fentanyl Screen Negative Ur Barbiturates Screen Negative U Amphetamin/Meth Scrn Negative U Benzodiazepines Scrn Negative U Cocaine Metab Screen Negative U Marijuana (THC) Screen Negative Urine Alcohol Positive A Misc Test Result Platelets confirmed Platelets confirmed Blood Type O Positive Antibody Screen POSITIVE Antibody Identification Cold Antibody Blood Bank Wristband ID Yes Blood Bank Comment PLATP Ready Quality Measures Quality Measures none Assessment & Plan Assessment Current Active Medications: Generic Name Dose Route Start Last Admin Trade Name Freq PRN Reason Stop Dose Admin Chlordiazepoxide HCl 25 mg 05/10/25 06:00 05/10/25 14:51 Chlordiazepoxide Hcl 25 Mg Capsule PO 05/11/25 05:59 25 mg Q8HR BRANDI Administration Folic Acid 1 mg 05/10/25 09:00 05/10/25 09:46 Folic Acid 1 Mg Tablet PO 05/15/25 08:59 Not Given BID BRANDI Octreotide Acetate 1,000 mcg/ 102 mls @ 5.1 mls/hr 05/09/25 23:48 05/10/25 01:22 Sodium Chloride IV 05/10/25 19:47 50 mcg/hr .Q20H ONE 5.1 mls/hr Administration Protocol 50 MCG/HR Ceftriaxone Sodium/Dextrose 1 gm in 50 mls @ 100 mls/hr 05/10/25 03:05 05/10/25 09:04 Rocephin/D5w 1gm Iv Premix IV 05/17/25 03:04 Not Given QDAY BRANDI Lorazepam 0.5 mg 05/10/25 03:07 Lorazepam 2 Mg/Ml Vial IV 05/15/25 03:06 Q2HR PRN CIWA SCORE 8-13 Lorazepam 1 mg 05/10/25 03:07 Lorazepam 2 Mg/Ml Vial IV 05/15/25 03:06 Q2HR PRN CIWA SCORE 14-19 Lorazepam 2 mg 05/10/25 03:07 Lorazepam 2 Mg/Ml Vial IV 05/15/25 03:06 Q2HR PRN CIWA SCORE 20-25 Lorazepam 2 mg 05/10/25 03:07 Lorazepam 2 Mg/Ml Vial IVP X1 PRN Breakthrough Agitation Ondansetron HCl 4 mg 05/09/25 23:56 05/10/25 14:51 Ondansetron Inj 2 Mg/Ml Inj 2 Ml IVP 4 mg Q1H PRN Administration PERSISTENT NAUSEA OR VOMITING Pantoprazole Sodium 40 mg 05/10/25 09:00 05/10/25 09:53 Pantoprazole Inj 40 Mg Vial IVP 06/09/25 08:59 40 mg Q12HR BRANDI Administration Thiamine HCl 100 mg 05/10/25 09:00 05/10/25 09:47 Thiamine 100 Mg Tablet PO 05/15/25 08:59 Not Given BID BRANDI Plan The patient is a 44-year-old male with a past medical history of alcoholic cirrhosis, history of varices status post banding, alcohol abuse disorder, who presented to the emergency room after 2 episodes of hematemesis, also reported black tarry stools. Patient will be admitted for further treatment management of upper GI bleed likely secondary to variceal bleed. #Decompensated cirrhosis secondary to alcohol abuse # Upper GI bleed, likely variceal bleed #Thrombocytopenia #Anemia Working Dx: bleeding esophageal varices 2/2 alcohol-associated cirrhosis Differential Dx: Stacie-Alicia tear 2/2 forceful vomiting, peptic ulcer disease, esophagitis/gastritis, angiodysplasia Patient's current hematemesis and melena is most likely 2/2 bleeding esophageal varices in the setting of chronic alcohol abuse with liver cirrhosis and past history of varices requiring endoscopic band ligation The current presentation could also be attributed to the conditions in the list of differentials but are less likely the main etiology CBC showed low RBCs at 3.14, Hgb at 8.9, Hct at 27.7, and platelet count at 20. -Per GI recommendations, patient has been started on octreotide drip as well as PPI BID -Per GI recommendations, patient has been made NPO -Plan to have GI perform EGD for diagnostic and therapeutic purposes (possible endoscopic band ligation for bleeding varices) -Patient's low platelet count of 20 with active bleeding are an indication for platelet transfusion, 1 bag platelets transfused, coagulation profile shows INR 1.4. -Will transfuse patient with pRBC's should Hgb fall below 7 #Alcohol withdrawal symptoms #Acute alcohol intoxication Patient endorses heavy drinking in recent history and that he has drank today On physical exam, patient showed symptoms of possible alcohol withdrawal in the form of resting hand tremors Labs showed elevated AST at 121 consistent with alcohol-induced hepatocellular pattern of liver injury. Other values that were elevated include bilirubin at 2.3, alkaline phosphatase at 195, and ammonia at 39 (normal value 11-32). Patient does not meet criteria for IV steroids based on Maddrey's discriminant function score. Utox was ordered but has not resulted at this moment in time -Symptom triggered CIWA protocol, lorazepam as needed -Librium scheduled 25 mg every 8 hourly -Counseled regarding alcohol abstinence, risks of continued alcohol use were discussed. #History of pulmonary nodules Reported pulmonary nodules on prior imaging, currently reported 12 mm stable pulmonary nodule compared to previous imaging from 2022. Will recommend follow-up with primary care physician on outpatient basis for pulmonary nodule. Hospital Management: Disposition: management of upper GI bleeding and alcohol withdrawal symptoms Diet: NPO DVT Prophylaxis: SCDs CODE STATUS: Full Code Plan of care discussed with attending Dr. Rosanne Ferrell PGY3
--- NOTE | 2025-05-10 18:34 | PD.IMCONS ---
HPI Data of Consult Requesting Physician: Valentin Miller MD Primary Care Provider: Physician No Primary/Family Consult Narrative Reason for consult: Hematemesis History of present illness: 44 years old male came into the emergency room with bouts of hematemesis presenting hemoglobin hematocrit 8.9 and 27.7 with a platelet count of 16,000 and pro time INR 1.4 Patient does have a history of alcohol abuse and on 03/28/2025 underwent upper endoscopy requiring band ligation of the esophageal varices in total 3 bands were put in Patient also had hemorrhagic cystitis and was kept on octreotide for 5 days Colonoscopy on 04/02/2025 underwent a colonoscopy which showed internal hemorrhoids Patient continues to drink cc:: cc: Valentin Miller MD Review of Systems Review of Systems Systems Reviewed: All systems reviewed, normal except as documented Meds Home Medications and Allergies Allergies Allergy/AdvReac Type Severity Reaction Status Date / Time No Known Allergies Allergy Verified 05/09/25 22:56 Exam Vital Signs Temp Pulse Resp BP Pulse Ox O2 Del Method O2 Flow Rate 99.0 F 96 16 117/78 99 Room Air 2 05/10/25 16:02 05/10/25 16:02 05/10/25 16:02 05/10/25 16:02 05/10/25 16:02 05/10/25 16:02 05/10/25 14:45 Constitutional Comments: Chronically ill-appearing Routine Respiratory Exam Comments: Normal to auscultation Routine Abdominal Exam Comments: Soft nontender Results Labs 05/10/25 04:50 05/10/25 04:50 Labs: Short CBC 05/10/25 05/10/25 Range/Units 00:00 04:50 WBC 3.8 3.1 L (3.8-10.6) Thou/mm3 Hgb 8.9 L 8.5 L (13.5-16.0) g/dL Hct 27.7 L 25.5 L (41.0-53.0) % Plt Count 20 L* D 16 L* (140-440) Thou/mm3 BMP 05/10/25 05/10/25 00:00 04:50 Sodium 141 144 Potassium 3.6 3.7 Chloride 102 105 Carbon Dioxide 26.8 24.6 BUN < 5 L < 5 L Creatinine 0.6 0.5 L Glucose 114 H 110 H Calcium 8.5 7.5 L Cardiac Enzymes 05/10/25 Range/Units 00:00 Troponin I 0.028 (0.0-0.045) ng/mL Liver Function 05/10/25 05/10/25 Range/Units 00:00 04:50 Total Bilirubin 2.3 H 2.3 H (0.3-1.2) mg/dL AST 121 H 110 H (0-34) U/L ALT 20 18 (10-49) U/L Alkaline Phosphatase 195 H 166 H D (46-116) U/L Albumin 4.1 3.5 D (3.5-5.0) gm/dL Urine 05/10/25 Range/Units 07:40 Urine Color Lt-Yellow (Lt Yel-Yel) Urine Clarity Turbid A (Clear/Hazy) Urine pH 6.5 (5.0-7.0) Ur Specific [place] 1.010 (1.001-1.035) Urine Protein Negative (Neg - Trace) Urine Glucose (UA) Negative (Negative) Assessment and Plan Additional Assessment & Plan Additional Plan: # Hematemesis in the setting of alcoholic liver disease with thrombocytopenia and coagulopathy Plan Octreotide 50 mcg loading dose IV and then 50 mcg/h continuous infusion IV Protonix Have 1 bag of platelets ready they will be infused just prior to the endoscopy scheduled for tomorrow Consent obtained for fiberoptic esophagogastroduodenoscopy with possible biopsy possible therapeutic intervention under intravenous moderate sedation scheduled for tomorrow Serial CBC If the hemoglobin drops below 7 g transfuse the patient Prognosis guarded and poor unless until patient stops drinking alcohol Thank you very much for the opportunity to participate in care of this patient
--- NOTE | 2025-05-10 19:22 | PC.NURSE ---
Dr. Perla in to room explained plan of care to patient, plan for EGD tomorrow, continue sandostatin for 5 days, educated on alcohol cessation, pt verbalized understanding.
[2025-05-10] MEDS: DEXTROSE 5%-NS 1,000 ML 50 ML IV (19:38)
[2025-05-10] MEDS: LORazepam 2 MG/ML VIAL 1 MG IV (20:21)
[2025-05-10] MEDS: FOLIC ACID 1 MG TABLET PO (21:35)
[2025-05-10] MEDS: THIAMINE 100 MG TABLET PO (21:36)
[2025-05-11] VITALS (22 sets, daily range): BP systolic 110–141; BP diastolic 77–101; PULSE 80–127; RESP 12–20; TEMP 36.7–38.6; O2SAT 94–100
[2025-05-11] MEDS: ONDANSETRON INJ 2 MG/ML INJ 2 ML 4 MG IVP ×3 (04:50→22:04)
[2025-05-11] MEDS: LORazepam 2 MG/ML VIAL 1 MG IV (04:56)
[2025-05-11] MEDS: ACETAMINOPHEN 325 MG TABLET PO (05:24)
[2025-05-11 06:20] LABS: Basophils # (Auto) 0.0 Thou/mm3 (0.0-0.2); Basophils % (Auto) 1 % (0-2.5); Eosinophils # (Auto) 0.1 Thou/mm3 (0.0-0.5); Eosinophils % (Auto) 3 % (0-10); Hematocrit 24.8 % (41.0-53.0); Immature Granulocytes Auto 0.01 Thou/mm3 (0.00-0.00); Lymphocytes # (Auto) 0.4 Thou/mm3 (1.0-4.8); Lymphocytes % (Auto) 15 % (10-50); Mean Corpuscular HGB Conc 33.1 g/dl (31.0-37.0); Mean Corpuscular Hemoglobin 28.4 pg (25.0-35.0); Mean Corpuscular Volume 86 fL (80-100); Monocytes # (Auto) 0.3 Thou/mm3 (0.0-0.8); Monocytes % (Auto) 10 % (0-12); Neutrophils # (Auto) 2.0 Thou/mm3 (1.8-7.7); Neutrophils % (Auto) 72 % (37-80); Nucleated Red Blood Cell # 0.00 Thou/mm3 (0.00-0.00); Nucleated Red Blood Cell % 0 /100 WBC (0); RDW Standard Deviation 69.7 fL (35.1-43.9); Red Blood Count 2.89 Miln/mm3 (4.50-5.90)
[2025-05-11 06:29] LABS: Hemoglobin 8.2 g/dL (13.5-16.0); White Blood Count 2.7 Thou/mm3 (3.8-10.6)
[2025-05-11 06:30] LABS: Platelet Count 19 Thou/mm3 (140-440)
[2025-05-11 06:32] LABS: INR 1.5 (0.9-1.3); Partial Thromboplastin Time 34.6 Seconds (22.0-36.0); Prothrombin Time 15.6 Seconds (9.0-12.2)
[2025-05-11 07:06] LABS: Alanine Aminotransferase 17 U/L (10-49); Albumin, Serum 3.6 gm/dL (3.5-5.0); Albumin/Globulin Ratio 1.0 (1.2-2.2); Alkaline Phosphatase 155 U/L (46-116); Anion Gap 12 (7-16); Aspartate Amino Transferase 104 U/L (0-34); BUN/Creatinine Ratio 7 Ratio (12-20); Bilirubin,Total 3.2 mg/dL (0.3-1.2); Blood Urea Nitrogen < 5 mg/dL (9-23); Calcium 7.9 mg/dL (8.3-10.6); Calcium (Corrected) 8.2 mg/dL (8.5-10.1); Carbon Dioxide 28.2 mMol/L (20.0-31.0); Chloride 100 mMol/L (98-107); Creatinine (Component) 0.7 mg/dL (0.6-1.3); Estimated Creatinine Clearance 122.8 mL/min (>60); Globulin 3.7 gm/dL (2.3-3.5); Glucose 126 mg/dL (74-106); Magnesium 1.3 mg/dL (1.6-2.6); Osmolality,Calculated 278 (275-295); Phosphorous 2.5 mg/dL (2.4-5.1); Potassium 3.4 mMol/L (3.4-5.1); Sodium 140 mMol/L (136-145); Total Protein 7.3 gm/dL (5.7-8.2); eGFR > 60 See Note
[2025-05-11 07:44] LABS: Slide Review Platelets confirmed
--- NOTE | 2025-05-11 07:50 | PC.NURSE ---
POC DISCUSSED WITH DR. ANDRE.
[2025-05-11] MEDS: THIAMINE 100 MG TABLET PO ×2 (08:15→21:51)
[2025-05-11] MEDS: FOLIC ACID 1 MG TABLET PO ×2 (08:15→21:51)
[2025-05-11] MEDS: CALCIUM CARBONATE 600 MG TABLET PO (08:15)
[2025-05-11] MEDS: cefTRIAXone/D5w 1gm IV premix 1 GM/50 ML BAG IV (08:16)
--- NOTE | 2025-05-11 08:35 | ESPR_ITS ---
<Statement entered by Elmira Lay MD - 05/16/25 11:45> I reviewed above note and agree with findings and plans. I have also personally examined the patient with medicine team and went over assessment and plan with medical team including international organizer and resident physician. Documentation for date of: 05/11/25 Subjective Subjective Interval history: No acute events overnight. Patient seen and examined at bedside this AM. Complains of epigastric pain, same as since admission. Had small bowel movement this morning, unclear if stool was still dark. Labs and vitals were reviewed. WBC continuing to drop, now 2.7. Hemoglobin stable at 8.2. Platelets 19, stable since admission. BUN less than 5, creatinine 0.7, magnesium 1.3. Total bilirubin 3.2 from 2.3 yesterday. Liver enzymes unchanged. No further complaints at this time. Pending EGD today, patient NPO after noon. Review of systems otherwise negative except what is mentioned above. Exam Vital Signs Temp Pulse Resp BP Pulse Ox O2 Del Method O2 Flow Rate 98.3 F 102 H 20 129/90 H 99 Room Air 2 05/11/25 07:52 05/11/25 08:00 05/11/25 07:52 05/11/25 07:52 05/11/25 07:52 05/11/25 07:52 05/10/25 14:45 Narrative Exam Physical Exam General: Awake and in no acute distress. Cooperative. Sinhala speaking. Non- toxic appearing. HEENT: Normocephalic, atraumatic, mucous membranes moist. Slight scleral icterus. Heart: Tachycardic. Regular rate and rhythm, normal S1 and S2, no murmurs appreciated. Lungs: Clear to auscultation with no wheezing or crackles. Abdomen: Soft, nondistended. Epigastric and mild right upper quadrant tenderness, positive bowel sounds. No guarding or rebound tenderness. Neurologic: Alert and oriented x3, no gross neurological deficit, and patient able to move all 4 extremities. Slight tremor of upper extremities bilaterally. Extremities: No edema. Skin: No rash or ecchymoses. Objective Labs 05/12/25 05:45 05/12/25 05:45 Labs: Laboratory Results - last 24 hr 05/10/25 05/10/25 05/10/25 00:00 04:50 07:40 WBC RBC Hgb Hct MCV MCH MCHC RDW Std Deviation Plt Count Neut % (Auto) Lymph % (Auto) [place] % (Auto) Eos % (Auto) Baso % (Auto) Neut # (Auto) Lymph # (Auto) [place] # (Auto) Eos # (Auto) Baso # (Auto) Immature Gran # (Auto) Absolute Nucleated RBC Immature Gran % Nucleated RBC % PT 15.0 H INR 1.4 H APTT Sodium Potassium Chloride Carbon Dioxide Anion Gap BUN Creatinine Estim Creat Clear Calc eGFR BUN/Creatinine Ratio Glucose Calculated Osmolality Calcium Corrected Calcium Phosphorus Magnesium Total Bilirubin AST ALT Alkaline Phosphatase Total Protein Albumin Globulin Albumin/Globulin Ratio Urine Opiates Screen Negative Urine Fentanyl Screen Negative Ur Barbiturates Screen Negative U Amphetamin/Meth Scrn Negative U Benzodiazepines Scrn Negative U Cocaine Metab Screen Negative U Marijuana (THC) Screen Negative Urine Alcohol Positive A Misc Test Result Blood Type O Positive Antibody Screen POSITIVE Antibody Identification Cold Antibody Blood Bank Wristband ID Yes Blood Bank Comment PLATP Ready 05/11/25 05:42 WBC 2.7 L RBC 2.89 L Hgb 8.2 L Hct 24.8 L MCV 86 MCH 28.4 MCHC 33.1 RDW Std Deviation 69.7 H Plt Count 19 L* Neut % (Auto) 72 Lymph % (Auto) 15 [place] % (Auto) 10 Eos % (Auto) 3 Baso % (Auto) 1 Neut # (Auto) 2.0 Lymph # (Auto) 0.4 L [place] # (Auto) 0.3 Eos # (Auto) 0.1 Baso # (Auto) 0.0 Immature Gran # (Auto) 0.01 H Absolute Nucleated RBC 0.00 Immature Gran % 0 Nucleated RBC % 0 PT 15.6 H INR 1.5 H APTT 34.6 Sodium 140 Potassium 3.4 Chloride 100 Carbon Dioxide 28.2 Anion Gap 12 BUN < 5 L Creatinine 0.7 Estim Creat Clear Calc 122.8 eGFR > 60 BUN/Creatinine Ratio 7 L Glucose 126 H Calculated Osmolality 278 Calcium 7.9 L Corrected Calcium 8.2 L Phosphorus 2.5 Magnesium 1.3 L Total Bilirubin 3.2 H D AST 104 H ALT 17 Alkaline Phosphatase 155 H Total Protein 7.3 Albumin 3.6 Globulin 3.7 H Albumin/Globulin Ratio 1.0 L Urine Opiates Screen Urine Fentanyl Screen Ur Barbiturates Screen U Amphetamin/Meth Scrn U Benzodiazepines Scrn U Cocaine Metab Screen U Marijuana (THC) Screen Urine Alcohol Misc Test Result Platelets confirmed Blood Type Antibody Screen Antibody Identification Blood Bank Wristband ID Blood Bank Comment Quality Measures Quality Measures none Assessment & Plan Assessment Current Active Medications: Generic Name Dose Route Start Last Admin Trade Name Freq PRN Reason Stop Dose Admin Acetaminophen 325 mg 05/11/25 05:09 05/11/25 05:24 Acetaminophen 325 Mg Tablet PO 06/10/25 05:08 325 mg Q4HR PRN Administration PAIN OR FEVER > 101 Calcium Carbonate 600 mg 05/11/25 09:00 05/11/25 08:15 Calcium Carbonate 600 Mg Tablet PO 06/10/25 08:59 600 mg QDAY BRANDI Administration Folic Acid 1 mg 05/10/25 09:00 05/11/25 08:15 Folic Acid 1 Mg Tablet PO 05/15/25 08:59 1 mg BID BRANDI Administration Ceftriaxone Sodium/Dextrose 1 gm in 50 mls @ 100 mls/hr 05/10/25 03:05 05/11/25 08:16 Rocephin/D5w 1gm Iv Premix IV 05/17/25 03:04 100 mls/hr QDAY BRANDI Administration Dextrose/Sodium Chloride 1,000 mls @ 50 mls/hr 05/10/25 19:30 05/10/25 19:38 D5-Ns IV 06/09/25 19:29 50 mls/hr .Q20H BRANDI Administration Octreotide Acetate 1,000 mcg/ 102 mls @ 5.1 mls/hr 05/10/25 19:57 05/10/25 21:04 Sodium Chloride IV 05/15/25 19:57 Not Given .Q20H BRANDI Protocol 50 MCG/HR Lactulose 10 gm 05/11/25 06:00 05/11/25 05:25 Lactulose Syrup 20 Gm/30 Ml Udc PO 06/10/25 05:59 Not Given TID BRANDI Protocol Lorazepam 0.5 mg 05/10/25 03:07 Lorazepam 2 Mg/Ml Vial IV 05/15/25 03:06 Q2HR PRN CIWA SCORE 8-13 Lorazepam 1 mg 05/10/25 03:07 05/11/25 04:56 Lorazepam 2 Mg/Ml Vial IV 05/15/25 03:06 1 mg Q2HR PRN Administration CIWA SCORE 14-19 Lorazepam 2 mg 05/10/25 03:07 Lorazepam 2 Mg/Ml Vial IV 05/15/25 03:06 Q2HR PRN CIWA SCORE 20-25 Lorazepam 2 mg 05/10/25 03:07 Lorazepam 2 Mg/Ml Vial IVP X1 PRN Breakthrough Agitation Ondansetron HCl 4 mg 05/09/25 23:56 05/11/25 04:50 Ondansetron Inj 2 Mg/Ml Inj 2 Ml IVP 4 mg Q1H PRN Administration PERSISTENT NAUSEA OR VOMITING Pantoprazole Sodium 40 mg 05/10/25 09:00 05/11/25 08:15 Pantoprazole Inj 40 Mg Vial IVP 06/09/25 08:59 40 mg Q12HR BRANDI Administration Thiamine HCl 100 mg 05/10/25 09:00 05/11/25 08:15 Thiamine 100 Mg Tablet PO 05/15/25 08:59 100 mg BID BRANDI Administration Plan Patient is a 44-year-old male with a past medical history of alcoholic cirrhosis, history of varices status post banding, alcohol abuse disorder, who presented to the emergency room after 2 episodes of hematemesis, also reported black tarry stools. Patient will be admitted for further treatment management of upper GI bleed likely secondary to variceal bleed. #Decompensated cirrhosis secondary to alcohol abuse # Upper GI bleed, likely variceal bleed #Thrombocytopenia #Anemia Working Dx: bleeding esophageal varices 2/2 alcohol-associated cirrhosis Differential Dx: Stacie-Alicia tear 2/2 forceful vomiting, peptic ulcer disease, esophagitis/gastritis, angiodysplasia Patient's current hematemesis and melena is most likely 2/2 bleeding esophageal varices in the setting of chronic alcohol abuse with liver cirrhosis and past history of varices requiring endoscopic band ligation The current presentation could also be attributed to the conditions in the list of differentials but are less likely the main etiology Patient's low platelet count of 20 with active bleeding which prompted platelet transfusion x1 CBC shows WBC 2.7, hemoglobin stable at 8.2, platelets stable at 19. -Per GI recommendations, patient has been started on octreotide drip as well as PPI BID -Per GI recommendations, clear liquid diet for breakfast, NPO after noon -Pending EGD for diagnostic and therapeutic purposes today (possible endoscopic band ligation for bleeding varices) -Will transfuse patient with pRBC's should Hgb fall below 7 -Hgb appears to be stable around 8.5. Transfuse platelets if <10,000. #Alcohol withdrawal symptoms #Acute alcohol intoxication #Hyperbilirubinemia, likely 2/2 alcoholic liver cirrhosis Patient endorses heavy drinking in recent history and that he has drank today On physical exam, patient showed symptoms of possible alcohol withdrawal in the form of resting hand tremors Labs showed elevated AST at 121 consistent with alcohol-induced hepatocellular pattern of liver injury (elevated bilirubin, alkaline phosphatase, and ammonia). However patient does not meet criteria for IV steroids based on Maddrey's discriminant function score. Utox only positive for alcohol. -Continue CIWA protocol -Lorazepam as needed -Counseled regarding alcohol abstinence, risks of continued alcohol use discussed -Consider imaging when hemodynamically stable to rule out cholecystitis #History of pulmonary nodules Reported pulmonary nodules on prior imaging, currently reported 12 mm stable pulmonary nodule compared to previous imaging from 2022. Will recommend follow-up with primary care physician on outpatient basis for pulmonary nodule. Hospital Management: Disposition: management of upper GI bleeding and alcohol withdrawal symptoms Diet: NPO GI prophylaxis: Protonix DVT Prophylaxis: SCDs CODE STATUS: Full Code Patient plan of care was discussed with the senior resident, Dr. Ferrell, and attending physician, Dr. Lay . Ashley Silva, PGY-1 Senior resident attestation: Patient evaluated and examined at the bedside, plan of care discussed with rest of the team including my attending physician, except as noted. Pt has hx of decompensated cirrhosis with hx of variceal bleed, recent band ligation, alchohol abuse disorder, who presented with GI bleed and alchohol withdrawal symptoms. Stable vitals, started on octerotide, Pending EGD and GI recommendations. CIWA protocol initiated for withdrawal symptoms. Counselled regarding strict alcohol abstinence was provided. Ghassan PGY3
--- NOTE | 2025-05-11 08:52 | PC.SS ---
Follow up note: On Octreotide drip for 5 days. Will complete Octreotide Drip on Sunday.
[2025-05-11] MEDS: Magnesium Sulfate 2 GM Ivpb 2 GM/50 ML BAG IV (10:02)
[2025-05-11] MEDS: LORazepam 2 MG/ML VIAL 0.5 MG IV ×2 (13:57→23:09)
--- NOTE | 2025-05-11 14:10 | PC.NURSE ---
DR. RICHTER MADE AWARE PTS NEEDS NEW ORDER FOR DANA AND MD MARIE TO REVIEW CHART AND PUT IN ORDERS.
--- NOTE | 2025-05-11 15:37 | PC.NURSE ---
REPORT GIVEN TO REED ABDUL, ETA FOR PROCEDURE [id number].PATIENT UPDATED.
[2025-05-11] MEDS: DEXTROSE 5%-NS 1,000 ML 50 ML IV (17:55)
[2025-05-11] MEDS: OCTREOTIDE ACET INJ 1,000 MCG in SODIUM CHLORIDE 0.9% 100 ML 5.1 MCG IV (18:04)
--- NOTE | 2025-05-11 19:56 | PC.NURSE ---
Pt taken to ENDO
[2025-05-11] MEDS: LACTULOSE SYRUP 20 GM/30 ML UDC 10 GM PO (21:50)
[2025-05-12] VITALS (8 sets, daily range): BP systolic 102–128; BP diastolic 71–88; PULSE 76–107; RESP 14–18; TEMP 36.6–37.2; O2SAT 96–99
[2025-05-12] MEDS: LACTULOSE SYRUP 20 GM/30 ML UDC 10 GM PO ×3 (05:41→21:02)
[2025-05-12 06:22] LABS: Basophils # (Auto) 0.0 Thou/mm3 (0.0-0.2); Basophils % (Auto) 1 % (0-2.5); Eosinophils # (Auto) 0.1 Thou/mm3 (0.0-0.5); Eosinophils % (Auto) 4 % (0-10); Hematocrit 28.0 % (41.0-53.0); Hemoglobin 9.1 g/dL (13.5-16.0); Immature Granulocytes Auto 0.02 Thou/mm3 (0.00-0.00); Lymphocytes # (Auto) 0.5 Thou/mm3 (1.0-4.8); Lymphocytes % (Auto) 16 % (10-50); Mean Corpuscular HGB Conc 32.5 g/dl (31.0-37.0); Mean Corpuscular Hemoglobin 29.0 pg (25.0-35.0); Mean Corpuscular Volume 89 fL (80-100); Monocytes # (Auto) 0.3 Thou/mm3 (0.0-0.8); Monocytes % (Auto) 8 % (0-12); Neutrophils # (Auto) 2.4 Thou/mm3 (1.8-7.7); Neutrophils % (Auto) 71 % (37-80); Nucleated Red Blood Cell # 0.00 Thou/mm3 (0.00-0.00); Nucleated Red Blood Cell % 0 /100 WBC (0); RDW Standard Deviation 70.3 fL (35.1-43.9); Red Blood Count 3.14 Miln/mm3 (4.50-5.90); White Blood Count 3.3 Thou/mm3 (3.8-10.6)
[2025-05-12 06:25] LABS: Platelet Count 21 Thou/mm3 (140-440)
[2025-05-12 06:31] LABS: INR 1.6 (0.9-1.3); Partial Thromboplastin Time 35.1 Seconds (22.0-36.0); Prothrombin Time 17.0 Seconds (9.0-12.2)
[2025-05-12 06:45] LABS: Alanine Aminotransferase 14 U/L (10-49); Albumin, Serum 3.7 gm/dL (3.5-5.0); Albumin/Globulin Ratio 0.9 (1.2-2.2); Alkaline Phosphatase 151 U/L (46-116); Anion Gap 9 (7-16); Aspartate Amino Transferase 83 U/L (0-34); BUN/Creatinine Ratio 7 Ratio (12-20); Bilirubin,Total 3.5 mg/dL (0.3-1.2); Blood Urea Nitrogen < 5 mg/dL (9-23); Calcium 8.5 mg/dL (8.3-10.6); Calcium (Corrected) 8.7 mg/dL (8.5-10.1); Carbon Dioxide 26.9 mMol/L (20.0-31.0); Chloride 100 mMol/L (98-107); Creatinine (Component) 0.7 mg/dL (0.6-1.3); Estimated Creatinine Clearance 122.8 mL/min (>60); Globulin 3.9 gm/dL (2.3-3.5); Glucose 110 mg/dL (74-106); Magnesium 1.2 mg/dL (1.6-2.6); Osmolality,Calculated 270 (275-295); Phosphorous 2.1 mg/dL (2.4-5.1); Potassium 3.7 mMol/L (3.4-5.1); Sodium 136 mMol/L (136-145); Total Protein 7.6 gm/dL (5.7-8.2); eGFR > 60 See Note
[2025-05-12 07:10] LABS: Slide Review Platelets confirmed
[2025-05-12] MEDS: FOLIC ACID 1 MG TABLET PO ×2 (08:46→20:51)
[2025-05-12] MEDS: CALCIUM CARBONATE 600 MG TABLET PO (08:46)
[2025-05-12] MEDS: THIAMINE 100 MG TABLET PO ×2 (08:46→20:51)
[2025-05-12] MEDS: cefTRIAXone/D5w 1gm IV premix 1 GM/50 ML BAG IV (08:46)
[2025-05-12] MEDS: Magnesium Sulfate 2 GM Ivpb 2 GM/50 ML BAG IV (09:38)
[2025-05-12] MEDS: NAPH,KPH MBDB 1 PACKET (1.5 GM) PO (09:38)
--- NOTE | 2025-05-12 13:41 | ESPR_ITS ---
<Statement entered by Elmira Lay MD - 05/16/25 11:47> I reviewed above note and agree with findings and plans. I have also personally examined the patient with medicine team and went over assessment and plan with medical team including planner intern and resident physician. Documentation for date of: 05/12/25 Senior resident attestation: Patient evaluated and examined at the bedside, plan of care discussed with rest of the team including my attending physician, except as noted. Pt has hx of decompensated cirrhosis with hx of variceal bleed, recent band ligation, alchohol abuse disorder, who presented with GI bleed and alchohol withdrawal symptoms. #GI bleed- variceal bleed- Stable vitals, started on octerotide, EBG showed grade 2 varices which were banded , recommended to continue octerotide for 5 days , to be completed on 05/15/25. #decompensated Cirrhosis, due to alcohol abuse, Child ham class B , not met criteria for iv steroids, CIWA protocol initiated for withdrawal symptoms. Pt might be a transplant candidate if able to abstain from alcohol, recommend outpt followup with gastroentrerology. Added lactulose to titrate 2-3 soft bowel movements per day. #Alcohol abuse- Counselled regarding strict alcohol abstinence was provided. Quresh PGY3 Subjective Subjective Interval history: No acute events overnight. Patient seen and examined at bedside this AM. He continues to report epigastric pain, same as yesterday. No bowel movement this morning. Labs and vitals were reviewed. Hemoglobin stable at 9.1 previously 8.2 yesterday. Platelets low but improved at 21,000. Patient had EGD procedure last night. Per report patient had medium sized grade 2 varicies in the lower third of the esophagus, 2 bands placed. Noted recent variceal bleed. Patient has severe hypertensive portal gastropathy. Per GI recommendations, continue octreotide for 5 days. Advance diet as tolerated. Review of systems otherwise negative except what is mentioned above. Exam Vital Signs Temp Pulse Resp BP Pulse Ox O2 Del Method O2 Flow Rate 97.9 F 92 18 113/75 98 Room Air 3 05/12/25 12:00 05/12/25 12:00 05/12/25 12:05/12/25 12:00 05/12/25 12:00 05/12/25 12:00 05/11/25 20:45 Narrative Exam Physical Exam General: Awake and in no acute distress. Cooperative. Serbian speaking. Non- toxic appearing. HEENT: Normocephalic, atraumatic, mucous membranes moist. Slight scleral icterus. Heart: Tachycardic. Regular rate and rhythm, normal S1 and S2, no murmurs appreciated. Lungs: Clear to auscultation with no wheezing or crackles. Abdomen: Soft, nondistended. Epigastric and mild right upper quadrant tenderness, positive bowel sounds. No guarding or rebound tenderness. Neurologic: Alert and oriented x3, no gross neurological deficit, and patient able to move all 4 extremities. Slight tremor of upper extremities bilaterally. Extremities: No edema. Skin: No rash or ecchymoses. Objective Labs 05/12/25 05:45 05/12/25 05:45 Labs: Laboratory Results - last 24 hr 05/12/25 05:45 WBC 3.3 L RBC 3.14 L Hgb 9.1 L Hct 28.0 L MCV 89 MCH 29.0 MCHC 32.5 RDW Std Deviation 70.3 H Plt Count 21 L* Neut % (Auto) 71 Lymph % (Auto) 16 [place] % (Auto) 8 Eos % (Auto) 4 Baso % (Auto) 1 Neut # (Auto) 2.4 Lymph # (Auto) 0.5 L [place] # (Auto) 0.3 Eos # (Auto) 0.1 Baso # (Auto) 0.0 Immature Gran # (Auto) 0.02 H Absolute Nucleated RBC 0.00 Immature Gran % 1 H Nucleated RBC % 0 PT 17.0 H INR 1.6 H APTT 35.1 Sodium 136 Potassium 3.7 Chloride 100 Carbon Dioxide 26.9 Anion Gap 9 BUN < 5 L Creatinine 0.7 Estim Creat Clear Calc 122.8 eGFR > 60 BUN/Creatinine Ratio 7 L Glucose 110 H Calculated Osmolality 270 L Calcium 8.5 Corrected Calcium 8.7 Phosphorus 2.1 L Magnesium 1.2 L Total Bilirubin 3.5 H AST 83 H ALT 14 Alkaline Phosphatase 151 H Total Protein 7.6 Albumin 3.7 Globulin 3.9 H Albumin/Globulin Ratio 0.9 L Misc Test Result Platelets confirmed Quality Measures Quality Measures none Assessment & Plan Assessment Current Active Medications: Generic Name Dose Route Start Last Admin Trade Name Freq PRN Reason Stop Dose Admin Acetaminophen 325 mg 05/11/25 05:09 05/11/25 05:24 Acetaminophen 325 Mg Tablet PO 06/10/25 05:08 325 mg Q4HR PRN Administration PAIN OR FEVER > 101 Calcium Carbonate 600 mg 05/11/25 09:00 05/12/25 08:46 Calcium Carbonate 600 Mg Tablet PO 06/10/25 08:59 600 mg QDAY BRANDI Administration Folic Acid 1 mg 05/10/25 09:00 05/12/25 08:46 Folic Acid 1 Mg Tablet PO 05/15/25 08:59 1 mg BID BRANDI Administration Ceftriaxone Sodium/Dextrose 1 gm in 50 mls @ 100 mls/hr 05/10/25 03:05 05/12/25 08:46 Rocephin/D5w 1gm Iv Premix IV 05/17/25 03:04 100 mls/hr QDAY BRANDI Administration Dextrose/Sodium Chloride 1,000 mls @ 50 mls/hr 05/10/25 19:30 05/11/25 17:55 D5-Ns IV 06/09/25 19:29 50 mls/hr .Q20H BRANDI Administration Octreotide Acetate 1,000 mcg/ 102 mls @ 5.1 mls/hr 05/10/25 19:57 05/11/25 18:04 Sodium Chloride IV 05/15/25 19:56 50 mcg/hr .Q20H BRANDI 5.1 mls/hr Administration Protocol 50 MCG/HR Lactulose 10 gm 05/11/25 06:00 05/12/25 13:33 Lactulose Syrup 20 Gm/30 Ml Udc PO 06/10/25 05:59 10 gm TID BRANDI Administration Protocol Lorazepam 0.5 mg 05/10/25 03:07 05/11/25 23:09 Lorazepam 2 Mg/Ml Vial IV 05/15/25 03:06 0.5 mg Q2HR PRN Administration CIWA SCORE 8-13 Lorazepam 1 mg 05/10/25 03:07 05/11/25 04:56 Lorazepam 2 Mg/Ml Vial IV 05/15/25 03:06 1 mg Q2HR PRN Administration CIWA SCORE 14-19 Lorazepam 2 mg 05/10/25 03:07 Lorazepam 2 Mg/Ml Vial IV 05/15/25 03:06 Q2HR PRN CIWA SCORE 20-25 Lorazepam 2 mg 05/10/25 03:07 Lorazepam 2 Mg/Ml Vial IVP X1 PRN Breakthrough Agitation Ondansetron HCl 4 mg 05/11/25 14:10 05/11/25 22:04 Ondansetron Inj 2 Mg/Ml Inj 2 Ml IVP 06/10/25 14:09 4 mg Q6HR PRN Administration NAUSEA OR VOMITING Protocol Pantoprazole Sodium 40 mg 05/10/25 09:00 05/12/25 08:46 Pantoprazole Inj 40 Mg Vial IVP 06/09/25 08:59 40 mg Q12HR BRANDI Administration Thiamine HCl 100 mg 05/10/25 09:00 05/12/25 08:46 Thiamine 100 Mg Tablet PO 05/15/25 08:59 100 mg BID BRANDI Administration Plan Patient is a 44-year-old male with a past medical history of alcoholic cirrhosis, history of varices status post banding, alcohol abuse disorder, who presented to the emergency room after 2 episodes of hematemesis, also reported black tarry stools. Patient will be admitted for GI bleed secondary to severe hypertensive portal gastropathy, s/p EGD and variceal banding. Also being treated for alcohol withdrawal symptoms. #Decompensated cirrhosis secondary to alcohol abuse #Severe hypertensive portal gastropathy #Variceal bleed s/p banding #Thrombocytopenia #Anemia Likely 2/2 bleeding esophageal varices in the setting of chronic alcohol abuse with end stage liver disease, of note he has past history of varices requiring endoscopic band ligation Patient's low platelet count of 20 with active bleeding which prompted platelet transfusion x1 Hemoglobin improved to 9.9, 8.2 yesterday. Platelets also improved. Status post EGD and banding last night 05/11. -GI Dr. Perla consulted, appreciate recommendations -Continue octreotide drip for 5 days since admission (05/10/25- -Advance diet as tolerated -Will transfuse patient with pRBC's should Hgb fall below 7 -Hgb appears to be stable around 8.5. Transfuse platelets if <10,000. #Alcohol withdrawal symptoms #Acute alcohol intoxication #Hyperbilirubinemia, likely 2/2 alcoholic liver cirrhosis #Concern for end stage liver disease Patient endorses heavy drinking in recent history and that he has drank on day of admission. On physical exam, patient showed symptoms of possible alcohol withdrawal in the form of resting hand tremors Labs showed elevated AST consistent with alcohol-induced hepatocellular pattern of liver injury (elevated bilirubin, alkaline phosphatase, and ammonia). However patient does not meet criteria for IV steroids based on Maddrey's discriminant function score. Utox only positive for alcohol. 05/12 Child-Ham Score: 8, class B; there is indication for transplant evaluation. Abdominal surgery per-operative morality is 30%. 05/12 MELD Na score: 17, 6% estimated 3 month mortality. Given score and symptoms (mild ascites, variceal bleeding, and thrombocytopenia), concern that patient has end stage liver disease. Per guidelines, for scores greater than 10, patient should be referred to hepatology or liver transplant center. Will plan for hepatology outpatient follow up via PCP referral. -Continue CINC protocol -Lorazepam as needed -Counseled regarding alcohol abstinence, risks of continued alcohol use discussed -Bilirubin slowly uptrending, alkaline phosphatase elevated but slowly improving. Consider imaging to rule out cholecystitis and determine liver status. #History of pulmonary nodules Reported pulmonary nodules on prior imaging, currently reported 12 mm stable pulmonary nodule compared to previous imaging from 2022. Will recommend follow-up with primary care physician on outpatient basis for pulmonary nodule. Hospital Management: Disposition: management of upper GI bleeding and alcohol withdrawal symptoms Diet: NPO GI prophylaxis: Protonix DVT Prophylaxis: SCDs CODE STATUS: Full Code Patient plan of care was discussed with the senior resident, Dr. Ferrell, and attending physician, Dr. Lay . Ashley Silva, PGY-1
--- NOTE | 2025-05-12 13:46 | PC.SS ---
SS met with patient regarding his d/c plan.? Pt is alert/oriented.? Pt was admitted for Vomiting Blood and Alcohol withdrawal Symptoms.? Pt confirmed demographic and contact information is correct on facesheet.? Pt is from [facility].? Pt ambulates independently without assistance or DME.? Pt is ok with all ADLs.? Patient?s pharmacy of choice is [facility] [address] Pt has shoes, socks, shirt, and pants at bedside.? Pt named his ex , Amparo Maier medical decision maker if he is unable.? Patient?s choice is to return to the [facility] upon dc.? Pt will require transportation at dc.? Pt states he followed up with PCP in April. D/C plan:? Return to [facility] Next of Kin:? Amparo Maier, friend, phone# [phone] PCP:? [facility] Address:? Correct on facesheet
[2025-05-12] MEDS: LORazepam 2 MG/ML VIAL 0.5 MG IV ×2 (14:27→20:51)
[2025-05-12] MEDS: DEXTROSE 5%-NS 1,000 ML 50 ML IV (17:02)
[2025-05-12] MEDS: OCTREOTIDE ACET INJ 1,000 MCG in SODIUM CHLORIDE 0.9% 100 ML 5.1 MCG IV (17:02)
--- NOTE | 2025-05-12 21:46 | ESPR_ITS ---
Documentation for date of: 05/12/25 Subjective Subjective Interval history: Hemoglobin hematocrit 9.1 and 28.0 Patient's status post band ligation of esophageal varices 2 bands were put in Exam Vital Signs Temp Pulse Resp BP Pulse Ox O2 Del Method O2 Flow Rate 99.0 F 85 16 102/71 96 Room Air 3 05/12/25 20:00 05/12/25 20:00 05/12/25 20:00 05/12/25 20:00 05/12/25 20:00 05/12/25 20:00 05/11/25 20:45 Objective Labs 05/12/25 05:45 05/12/25 05:45 Labs: Laboratory Results - last 24 hr 05/12/25 05:45 WBC 3.3 L RBC 3.14 L Hgb 9.1 L Hct 28.0 L MCV 89 MCH 29.0 MCHC 32.5 RDW Std Deviation 70.3 H Plt Count 21 L* Neut % (Auto) 71 Lymph % (Auto) 16 [place] % (Auto) 8 Eos % (Auto) 4 Baso % (Auto) 1 Neut # (Auto) 2.4 Lymph # (Auto) 0.5 L [place] # (Auto) 0.3 Eos # (Auto) 0.1 Baso # (Auto) 0.0 Immature Gran # (Auto) 0.02 H Absolute Nucleated RBC 0.00 Immature Gran % 1 H Nucleated RBC % 0 PT 17.0 H INR 1.6 H APTT 35.1 Sodium 136 Potassium 3.7 Chloride 100 Carbon Dioxide 26.9 Anion Gap 9 BUN < 5 L Creatinine 0.7 Estim Creat Clear Calc 122.8 eGFR > 60 BUN/Creatinine Ratio 7 L Glucose 110 H Calculated Osmolality 270 L Calcium 8.5 Corrected Calcium 8.7 Phosphorus 2.1 L Magnesium 1.2 L Total Bilirubin 3.5 H AST 83 H ALT 14 Alkaline Phosphatase 151 H Total Protein 7.6 Albumin 3.7 Globulin 3.9 H Albumin/Globulin Ratio 0.9 L Misc Test Result Platelets confirmed Impressions Impression: Status post band ligation of esophageal varices on octreotide which to continue Hemoglobin hematocrit 9.1 and 28.0 Assessment & Plan A&P Narrative # Hematemesis in the setting of alcoholic liver disease with thrombocytopenia and coagulopathy Plan Octreotide 50 mcg loading dose IV and then 50 mcg/h continuous infusion IV Protonix Have 1 bag of platelets ready they will be infused just prior to the endoscopy scheduled for tomorrow Consent obtained for fiberoptic esophagogastroduodenoscopy with possible biopsy possible therapeutic intervention under intravenous moderate sedation scheduled for tomorrow Serial CBC If the hemoglobin drops below 7 g transfuse the patient Prognosis guarded and poor unless until patient stops drinking alcohol Thank you very much for the opportunity to participate in care of this patient Time Spent With Patient Time: Total time spent is greater than 50% in coordination of care (as documented) at patient's floor/unit and/or counseling patient:
[2025-05-13] VITALS: BP 108/86; PULSE 112; PULSE 92; RESP 14; TEMP 36.9; O2SAT 98
[2025-05-13] MEDS: LORazepam 2 MG/ML VIAL 1 MG IV ×3 (03:32→13:14)
[2025-05-13 04:00] VITALS: BP 110/81; PULSE 86; PULSE 95; RESP 19; TEMP 36.5; O2SAT 97
--- NOTE | 2025-05-13 05:04 | PC.NURSE ---
Dr. Jimenes notified regarding the possibility of getting Librium on board to help manage the patient's withdrawl symptoms. He said he would let the day team know.
[2025-05-13] MEDS: LACTULOSE SYRUP 20 GM/30 ML UDC 10 GM PO ×2 (05:37→13:14)
[2025-05-13 06:27] LABS: Basophils # (Auto) 0.0 Thou/mm3 (0.0-0.2); Basophils % (Auto) 1 % (0-2.5); Eosinophils # (Auto) 0.2 Thou/mm3 (0.0-0.5); Eosinophils % (Auto) 5 % (0-10); Hematocrit 27.9 % (41.0-53.0); Hemoglobin 9.1 g/dL (13.5-16.0); Immature Granulocytes Auto 0.01 Thou/mm3 (0.00-0.00); Lymphocytes # (Auto) 0.5 Thou/mm3 (1.0-4.8); Lymphocytes % (Auto) 13 % (10-50); Mean Corpuscular HGB Conc 32.6 g/dl (31.0-37.0); Mean Corpuscular Hemoglobin 28.8 pg (25.0-35.0); Mean Corpuscular Volume 88 fL (80-100); Monocytes # (Auto) 0.4 Thou/mm3 (0.0-0.8); Monocytes % (Auto) 9 % (0-12); Neutrophils # (Auto) 3.2 Thou/mm3 (1.8-7.7); Neutrophils % (Auto) 73 % (37-80); Nucleated Red Blood Cell # 0.00 Thou/mm3 (0.00-0.00); Nucleated Red Blood Cell % 0 /100 WBC (0); RDW Standard Deviation 69.1 fL (35.1-43.9); Red Blood Count 3.16 Miln/mm3 (4.50-5.90); White Blood Count 4.3 Thou/mm3 (3.8-10.6)
[2025-05-13 06:39] LABS: INR 1.7 (0.9-1.3); Partial Thromboplastin Time 35.5 Seconds (22.0-36.0); Prothrombin Time 18.2 Seconds (9.0-12.2)
[2025-05-13 06:48] LABS: Alanine Aminotransferase 13 U/L (10-49); Albumin, Serum 3.6 gm/dL (3.5-5.0); Albumin/Globulin Ratio 1.0 (1.2-2.2); Alkaline Phosphatase 146 U/L (46-116); Anion Gap 11 (7-16); Aspartate Amino Transferase 68 U/L (0-34); BUN/Creatinine Ratio 7 Ratio (12-20); Bilirubin,Total 3.4 mg/dL (0.3-1.2); Blood Urea Nitrogen < 5 mg/dL (9-23); Calcium 8.6 mg/dL (8.3-10.6); Calcium (Corrected) 8.9 mg/dL (8.5-10.1); Carbon Dioxide 24.7 mMol/L (20.0-31.0); Chloride 100 mMol/L (98-107); Creatinine (Component) 0.7 mg/dL (0.6-1.3); Estimated Creatinine Clearance 122.8 mL/min (>60); Globulin 3.5 gm/dL (2.3-3.5); Glucose 123 mg/dL (74-106); Magnesium 1.1 mg/dL (1.6-2.6); Osmolality,Calculated 270 (275-295); Phosphorous 2.5 mg/dL (2.4-5.1); Potassium 3.4 mMol/L (3.4-5.1); Sodium 136 mMol/L (136-145); Total Protein 7.1 gm/dL (5.7-8.2); eGFR > 60 See Note
[2025-05-13 06:52] LABS: Platelet Count 25 Thou/mm3 (140-440)
[2025-05-13 06:55] LABS: Slide Review Platelets confirmed
[2025-05-13 08:00] VITALS: BP 109/84; PULSE 96; PULSE 97; RESP 15; TEMP 36.5; O2SAT 97
--- NOTE | 2025-05-13 08:33 | ESPR_ITS ---
<Statement entered by Elmira Lay MD - 05/25/25 14:14> I reviewed above note and agree with findings and plans. I have also personally examined the patient with medicine team and went over assessment and plan with medical team including fashion intern and resident physician. Documentation for date of: 05/13/25 Senior resident attestation: Patient evaluated and examined at the bedside, plan of care discussed with rest of the team including my attending physician, except as noted. The patient was admitted for upper GI bleed, alcohol withdrawal, decompensated cirrhosis, received EGD status post banding, was started on octreotide to be continued until 05/15/2025, was on CIWA protocol receiving IV lorazepam and chlordiazepoxide, but this afternoon, patient refused to stay in the hospital and refused further treatment, patient reported that he wants to go out and buy beer , patient was found to be A and O x 3, assessed for mental capacity, Patient communicated his understanding of disease, benefit of his medical treatment, risks of discontinuing medical treatment including fall, seizure, life-threatening GI bleed and arrhythmia, risk of was explained, patient reiterated all those concerns and stated that he would still prefer to leave the hospital . As patient was fully alert and had the mental capacity to understand the risk, he chose to leave AGAINST MEDICAL ADVICE, patient was advised to return to the emergency room if needed. Quresh PGY3 Subjective Subjective Interval history: Patient's CIWA score overnight was 18, CIWA protocol initiated. Patient seen and examined at bedside this AM. Reported auditory and visual hallucinations at night, did not endorse any this morning. Patient had mild headache and mild tremors in upper extremities. CIWA score 13. Restarted on Librium and increased Ativan dose. Labs and vitals were reviewed. Hgb remains stable at 9.1. Platelets improving. AST improving. Bilirubin and alk phos still elevated, likely secondary to liver cirrhosis. Magnesium 1.1, repleted. Review of systems otherwise negative except what is mentioned above. Patient continued to be agitated throughout the day despite restarting Librium and updating CIWA protocol. Later today, the patient has decided to sign out against medical advice (AMA) after being explained the risks of leaving before medical clearance/discharge, including bleeding, seizures, syncope, and . He reported that he wanted to leave to grab a beer. Patient was alert and oriented x3 and was able to answer capacity questions with ability to demonstrate understanding of the above and signed the AMA form. The patient had the opportunity to ask questions about their condition which were answered to their satisfaction; the patient is aware that they may return for further care at any time as needed. Exam Vital Signs Temp Pulse Resp BP Pulse Ox O2 Del Method O2 Flow Rate 97.7 F 86 19 110/81 97 Room Air 3 05/13/25 04:00 05/13/25 04:00 05/13/25 04:00 05/13/25 04:00 05/13/25 04:00 05/13/25 04:00 05/11/25 20:45 Narrative Exam Physical Exam General: Awake and in no acute distress. Cooperative. [place] speaking. Non- toxic appearing. HEENT: Normocephalic, atraumatic, mucous membranes moist. Mild scleral icterus. Heart: Tachycardic. Regular rate and rhythm, normal S1 and S2, no murmurs appreciated. Lungs: Clear to auscultation with no wheezing or crackles. Abdomen: Soft, nondistended. Epigastric and mild right upper quadrant tenderness, positive bowel sounds. No guarding or rebound tenderness. Neurologic: Alert and oriented x3, no gross neurological deficit, and patient able to move all 4 extremities. Tremor of upper extremities bilaterally. Extremities: No edema. Skin: No rash or ecchymoses. Objective Labs 05/13/25 05:41 05/13/25 05:41 Labs: Laboratory Results - last 24 hr 05/13/25 05:41 WBC 4.3 RBC 3.16 L Hgb 9.1 L Hct 27.9 L MCV 88 MCH 28.8 MCHC 32.6 RDW Std Deviation 69.1 H Plt Count 25 L* Neut % (Auto) 73 Lymph % (Auto) 13 Storey % (Auto) 9 Eos % (Auto) 5 Baso % (Auto) 1 Neut # (Auto) 3.2 Lymph # (Auto) 0.5 L [place]y # (Auto) 0.4 Eos # (Auto) 0.2 Baso # (Auto) 0.0 Immature Gran # (Auto) 0.01 H Absolute Nucleated RBC 0.00 Immature Gran % 0 Nucleated RBC % 0 PT 18.2 H INR 1.7 H APTT 35.5 Sodium 136 Potassium 3.4 Chloride 100 Carbon Dioxide 24.7 Anion Gap 11 BUN < 5 L Creatinine 0.7 Estim Creat Clear Calc 122.8 eGFR > 60 BUN/Creatinine Ratio 7 L Glucose 123 H Calculated Osmolality 270 L Calcium 8.6 Corrected Calcium 8.9 Phosphorus 2.5 Magnesium 1.1 L Total Bilirubin 3.4 H AST 68 H ALT 13 Alkaline Phosphatase 146 H Total Protein 7.1 Albumin 3.6 Globulin 3.5 Albumin/Globulin Ratio 1.0 L Misc Test Result Platelets confirmed Quality Measures Quality Measures none Assessment & Plan Assessment Current Active Medications: Generic Name Dose Route Start Last Admin Trade Name Freq PRN Reason Stop Dose Admin Acetaminophen 325 mg 05/11/25 05:09 05/11/25 05:24 Acetaminophen 325 Mg Tablet PO 06/10/25 05:08 325 mg Q4HR PRN Administration PAIN OR FEVER > 101 Calcium Carbonate 600 mg 05/11/25 09:00 05/12/25 08:46 Calcium Carbonate 600 Mg Tablet PO 06/10/25 08:59 600 mg QDAY BRANDI Administration Folic Acid 1 mg 05/10/25 09:00 05/12/25 20:51 Folic Acid 1 Mg Tablet PO 05/15/25 08:59 1 mg BID BRANDI Administration Ceftriaxone Sodium/Dextrose 1 gm in 50 mls @ 100 mls/hr 05/10/25 03:05 05/12/25 08:46 Rocephin/D5w 1gm Iv Premix IV 05/17/25 03:04 100 mls/hr QDAY BRANDI Administration Dextrose/Sodium Chloride 1,000 mls @ 50 mls/hr 05/10/25 19:30 05/12/25 17:02 D5-Ns IV 06/09/25 19:29 50 mls/hr .Q20H BRANDI Administration Octreotide Acetate 1,000 mcg/ 102 mls @ 5.1 mls/hr 05/10/25 19:57 05/12/25 17:02 Sodium Chloride IV 05/15/25 19:56 50 mcg/hr .Q20H BRANDI 5.1 mls/hr Administration Protocol 50 MCG/HR Lactulose 10 gm 05/11/25 06:00 05/13/25 05:37 Lactulose Syrup 20 Gm/30 Ml Udc PO 06/10/25 05:59 10 gm TID BRANDI Administration Protocol Lorazepam 0.5 mg 05/10/25 03:07 05/13/25 00:00 Lorazepam 2 Mg/Ml Vial IV 05/15/25 03:06 0.5 mg Q2HR PRN Administration CIWA SCORE 8-13 Lorazepam 1 mg 05/10/25 03:07 05/13/25 05:39 Lorazepam 2 Mg/Ml Vial IV 05/15/25 03:06 1 mg Q2HR PRN Administration CIWA SCORE 14-19 Lorazepam 2 mg 05/10/25 03:07 Lorazepam 2 Mg/Ml Vial IV 05/15/25 03:06 Q2HR PRN CIWA SCORE 20-25 Lorazepam 2 mg 05/10/25 03:07 Lorazepam 2 Mg/Ml Vial IVP X1 PRN Breakthrough Agitation Lorazepam 0.5 mg 05/13/25 04:44 Lorazepam 0.5 Mg Tablet PO 05/18/25 04:43 Q4HR PRN CIWA Score 2-7 Ondansetron HCl 4 mg 05/11/25 14:10 05/11/25 22:04 Ondansetron Inj 2 Mg/Ml Inj 2 Ml IVP 06/10/25 14:09 4 mg Q6HR PRN Administration NAUSEA OR VOMITING Protocol Pantoprazole Sodium 40 mg 05/10/25 09:00 05/12/25 20:52 Pantoprazole Inj 40 Mg Vial IVP 06/09/25 08:59 40 mg Q12HR BRANDI Administration Thiamine HCl 100 mg 05/10/25 09:00 05/12/25 20:51 Thiamine 100 Mg Tablet PO 05/15/25 08:59 100 mg BID BRANDI Administration Plan Patient is a 44-year-old male with a past medical history of alcoholic cirrhosis, history of varices status post banding, alcohol abuse disorder, who presented to the emergency room after 2 episodes of hematemesis, also reported black tarry stools. Patient will be admitted for GI bleed secondary to severe hypertensive portal gastropathy, s/p EGD and variceal banding. Also treating alcohol withdrawal symptoms. Patient left against medical advice. #AMA Patient continued to be agitated throughout the day despite restarting Librium and updating CIWA protocol. Later today, the patient has decided to sign out against medical advice (AMA) after being explained the risks of leaving before medical clearance/discharge, including bleeding, seizures, syncope, and . He reported that he wanted to leave to grab a beer. Patient was alert and oriented x3 and was able to answer capacity questions with ability to demonstrate understanding of the above and signed the AMA form. The patient had the opportunity to ask questions about their condition which were answered to their satisfaction; the patient is aware that they may return for further care at any time as needed. #Alcohol withdrawal symptoms #Acute alcohol intoxication #Hyperbilirubinemia, likely 2/2 alcoholic liver cirrhosis #Concern for end stage liver disease Patient endorses heavy drinking in recent history and that he has drank on day of admission. On physical exam, patient showed symptoms of possible alcohol withdrawal in the form of resting hand tremors Labs showed elevated AST consistent with alcohol-induced hepatocellular pattern of liver injury (elevated bilirubin, alkaline phosphatase, and ammonia). However patient does not meet criteria for IV steroids based on Maddrey's discriminant function score. Utox only positive for alcohol. 05/12 Child-Ham Score: 8, class B; there is indication for transplant evaluation. Abdominal surgery per-operative morality is 30%. 05/12 MELD Na score: 17, 6% estimated 3 month mortality. Given score and symptoms (mild ascites, variceal bleeding, and thrombocytopenia), concern that patient has end stage liver disease. Per guidelines, for scores greater than 10, patient should be referred to hepatology or liver transplant center. Will plan for hepatology outpatient follow up via PCP referral. 05/13: CIWA 18 last night, 13 this morning. Updated CIWA protocol and restarted on Librium. -Update CIWA protocol accordingly -Restart Librium -Lorazepam as needed -Counseled regarding alcohol abstinence, risks of continued alcohol use discussed -Bilirubin slowly uptrending, alkaline phosphatase elevated but slowly improving. Consider imaging to rule out cholecystitis and determine liver status. #Decompensated cirrhosis secondary to alcohol abuse #Severe hypertensive portal gastropathy #Variceal bleed s/p banding #Thrombocytopenia #Anemia Likely 2/2 bleeding esophageal varices in the setting of chronic alcohol abuse with end stage liver disease, of note he has past history of varices requiring endoscopic band ligation Patient's low platelet count of 20 with active bleeding which prompted platelet transfusion x1 Hemoglobin improved to 9.9, 8.2 yesterday. Platelets also improved. Status post EGD and banding 05/11. -GI Dr. Perla consulted, appreciate recommendations -Continue octreotide drip for 5 days since admission (05/10/25- -Advance diet as tolerated -Will transfuse patient with pRBC's should Hgb fall below 7 -Hgb appears to be stable around 8.5. Transfuse platelets if <10,000. -Continue CFX IV empirically (05/10/25- #History of pulmonary nodules Reported pulmonary nodules on prior imaging, currently reported 12 mm stable pulmonary nodule compared to previous imaging from 2022. Will recommend follow-up with primary care physician on outpatient basis for pulmonary nodule. Hospital Management: Disposition: management of upper GI bleeding and alcohol withdrawal symptoms Diet: NPO GI prophylaxis: Protonix DVT Prophylaxis: SCDs CODE STATUS: Full Code Patient plan of care was discussed with the senior resident, Dr. Ferrell, and attending physician, Dr. Lay . Ashley Silva, PGY-1
[2025-05-13] MEDS: FOLIC ACID 1 MG TABLET PO (08:55)
[2025-05-13] MEDS: cefTRIAXone/D5w 1gm IV premix 1 GM/50 ML BAG IV (08:55)
[2025-05-13] MEDS: CALCIUM CARBONATE 600 MG TABLET PO (08:55)
[2025-05-13] MEDS: THIAMINE 100 MG TABLET PO (08:55)
[2025-05-13] MEDS: LORazepam 2 MG/ML VIAL 0.5 MG IV ×2 (08:56)
[2025-05-13] MEDS: OCTREOTIDE ACET INJ 1,000 MCG in SODIUM CHLORIDE 0.9% 100 ML 5.1 MCG IV (08:57)
[2025-05-13] MEDS: Magnesium Sulfate 4 GM Ivpb 4 GM/50 ML BAG IV (09:48)
--- NOTE | 2025-05-13 10:36 | PC.SS ---
Follow up note: On IV meds. On Octerotide for 5 days, until 05-15-25. Pt will return to [facility].
[2025-05-13 12:00] VITALS: BP 118/78; PULSE 84; PULSE 87; RESP 12; TEMP 36.7; O2SAT 96
[2025-05-13 12:15] VITALS: PULSE 104
[2025-05-13] MEDS: POTASSIUM CHLORIDE 10% 20 MEQ/15 ML UDC 40 MEQ PO (14:06)
[2025-05-13] MEDS: LORazepam 2 MG/ML VIAL IVP (15:03)
--- NOTE | 2025-05-13 15:55 | PD.RESEVENT ---
Documentation for date of: 05/13/25 Event Note Event Note: Event note: Patient left AGAINST MEDICAL ADVICE, 3:52 PM Code scott Patient is alert and oriented with full capacity. Patient is refusing further medical treatment for decompensated cirrhosis with variceal bleeding status post band ligation. Patient wishes to no longer continue Octerotride drip. Patient is refusing oral Librium or Ativan for CIWA. Patient wishes to continue to drink outside the hospital. Risks of leaving AGAINST MEDICAL ADVICE explained to patient at length. Including risk of seizure and . Increased risk of bleeding given history of variceal veins. Patient has full capacity and understands risks. Patient insistent on leaving AGAINST MEDICAL ADVICE. If condition worsens advised to return to the hospital. - The patient's plan was discussed with attending Dr. Rosanne Greene MD PGY2 Internal Medicine
--- NOTE | 2025-05-13 16:15 | PC.NURSE ---
Dr. Rodriguez called because pt wants to go AMA, dr. Rodriguez and Dr. Ferrell at bedside to assess pt competency, both MD states pt is alert and orient and competent to leave, inform both MD's that this RN, does not think it is safe for pt to leave
--- NOTE | 2025-05-13 16:45 | PC.NURSE ---
Around 1545 Patient expressed the desire to leave against medical advise, DR Greene and DR Ferrell came to patient room, attempted to convince patient to complete treatment, patient does not agree. Patient is alert and orient X4, answered all orientation capacity questions correct. Both doctors explained in detail the risks of discontinuing treatment and leaving hospital, including risk of having seizure, fall injury, . Patient stated, it will be God's will Multiple RN and [employer]ITY [employer] staff tried to convince patient but was unsuccessful. IV removed by bed side RN, patient signed the AMA form and left the facility with all belongings.
== END 2025-05-13 16:12 | disposition left against medical advice (07) | DRG 280 ==
LOC: SERX 05-10 02:25 → SERHOLD 05-10 03:18 → S3NX 05-10 16:43
PROVIDERS: Specialist; Student in an Organized Health Care Education/Training Program; Admitting Provider Internal Medicine; Emergency Provider Student in an Organized Health Care Education/Training Program; Visit Provider Internal Medicine
PROC: 06L38CZ Occlusion of Esophageal Vein with Extraluminal Device, Via Natural or Artificial Opening Endoscopic (ICD-10-PCS; CPT 43239; principal; 2025-05-11 19:30)
DX: K70.31 Alcoholic cirrhosis of liver with ascites (principal); D64.9 Anemia, unspecified; F10.129 Alcohol abuse with intoxication, unspecified; F10.139 Alcohol abuse with withdrawal, unspecified; E83.42 Hypomagnesemia; F41.9 Anxiety disorder, unspecified; I85.11 Secondary esophageal varices with bleeding; K31.89 Other diseases of stomach and duodenum; K64.8 Other hemorrhoids; K72.10 Chronic hepatic failure without coma; K76.6 Portal hypertension; Z53.29 Procedure and treatment not carried out because of patient's decision for other reasons; D68.9 Coagulation defect, unspecified; D69.59 Other secondary thrombocytopenia; R04.0 Epistaxis
CPT/HCPCS: 36415; 36430; 80053; 80307; 80320; 81001; 82140; 82150; 83690; 83735; 84100; 84484; 85025; 85610; 85730; 86850; 86870; 86900; 86901; 86965; 93225; 96365; 96366; 96375; 99285; A4649; J0696; J1200; J2060; J2250; J2354; J2405; J2470; J3010; J3411; J3475; J3490; J7030; J7042; J7050; J7120; P9035; A9270; G0480

== ENCOUNTER 2025-05-16 18:13 | Emergency (ER) | payer MEDICAID, SELFPAY ==
[2025-05-16 19:16] VITALS: BP 115/74; PULSE 94; RESP 18; TEMP 37.3; O2SAT 95; BMI 27.3
--- NOTE | 2025-05-16 19:33 | EDNOTE_ITS ---
<Statement entered by Gunjan Aquino MD - 05/17/25 21:40> As co-signing physician, I was present and available for consult prn. I concur with the plan and care as documented by the midlevel provider. ED Alcohol RME/HPI General Chief Complaint: Alcohol Stated Complaint: INTOXICATED, SEEING THINGS, HEARING VOICES Time Seen by Provider: 05/16/25 19:20 Arrival date/time: 05/16/25 18:13 RME / HPI RME / HPI narrative: 44-year-old male patient with significant history of chronic alcoholism, homelessness, came in for evaluation regarding intoxication with alcohol. Apparently patient also complained of hearing voices and seeing things, out of nowhere, it comes and goes, severity mild. Patient denies any homicidal ideation denies any suicidal ideation. Patient is ambulatory. Patient is calm and cooperative. Patient is not taking any psych medication. Admits of drinking alcohol every day. Related Data Previous Rx's ?Medication ?Instructions ?Recorded pantoprazole 40 mg tablet,delayed 40 mg PO QDAY #60 ta bs 08/11/24 release thiamine mononitrate (vit B1) 100 100 mg PO QDAY #30 t abs 04/02/25 mg tablet Allergies Allergy/AdvReac Type Severity Reaction Status Date / Time No Known Allergies Allergy Verified 05/16/25 18:18 Review of Systems Review of Systems Narrative Review of Systems: Review of system reviewed and within normal limits except mentioned in HPI ED Exam Narrative Physical exam: VITAL SIGNS: Reviewed. GENERAL APPEARANCE: Alert and interactive, follows commands, no acute distress, HEAD AND FACE: Non-traumatic. ENT: PERRL, pink conjunctivitis, eyelid no trauma, Mucous membrane moist. NECK: Supple, nontender, no nuchal rigidity. CHEST: No tenderness, no crepitus, no paradoxical movement, no retractions. LUNGS: Clear, well ventilated, symmetric, no rales, no wheezing, no ronchi, no stridor, good breath sounds bilaterally. HEART: Regular rate, regular rhythm, no murmur, no gallops. ABDOMEN: Soft, positive bowel sounds, nondistended, no guarding, nontender, no rebound, no masses, RECTAL: Deferred. GENITAL: Deferred. NEUROLOGICAL: Gross motor function intact sensory function intact, Appropriate for age. MUSCULOSKELETAL: low back nontender, full range of motion. EXTREMITIES: Nontender, full range of motion. SKIN: Color pink, dry, no rash, no lacerations, no abrasions, no contusions. LYMPHATICS: Deferred. Course Quality Measures none Orders Category Date Time Status Acetaminophen Tab [Tylenol ES Tab] Med 05/16/25 19:32 Discontinued 500 mg PO X1 ONE Vital Signs Vital signs: Vital Signs Temperature 99.1 F 05/16/25 19:16 Pulse Rate 94 05/16/25 19:16 Respiratory Rate 18 05/16/25 19:16 Blood Pressure 115/74 05/16/25 19:16 Pulse Oximetry (%) 95 05/16/25 19:16 Oxygen Delivery Method Room Air 05/16/25 19:16 Discharge Plan Plan Patient Disposition: HOME (Self Care) Discharge Disposition comment: Stable Prescriptions/Referrals Prescriptions/Med Rec: No Action pantoprazole 40 mg tablet,delayed release (DR/EC) 40 mg PO QDAY Qty: 60 0RF thiamine mononitrate (vit B1) 100 mg Tablet 100 mg PO QDAY Qty: 30 0RF Referrals: No Primary/Family,Physician [Primary Care Provider] - In 1 week Problem List Clinical Impression: Alcohol abuse, Hallucinations due to alcohol Patient/Caregiver Discharge Instructions Discharge Activity: activity as tolerated Education Materials: Addiction: Getting Help Additional Instructions: Thank you for the opportunity for serving you today. You are stable for discharged . You are advised to: Follow-up with your PCP in 1 to 2 days as per referral to mental health specialist regarding your hallucinations which could be related to your alcohol abuse Return to ED for worsening of symptoms Increase oral fluids Please stop abusing alcohol Print Language: Peruvian Stand Alone Forms: Kallie Award Info., Patient Portal Info Letter PA/JABIER Supervising Physician BRIANNE/JABIER Supervising Physician: MD Elena Alcohol MDM Narrative MDM Narrative: 44-year-old male patient with significant history of chronic alcoholism, homelessness, came in for evaluation regarding intoxication with alcohol. Apparently patient also complained of hearing voices and seeing things, out of nowhere, it comes and goes, severity mild. Patient denies any homicidal ideation denies any suicidal ideation. Patient is ambulatory. Patient is calm and cooperative. Patient is not taking any psych medication. Admits of drinking alcohol every day. On multiple evaluation patient told me that there was no recurrence of hallucination. Patient was noted to be ambulatory answers question appropriately. Was advised to stop abusing alcohol. Patient data External records reviewed:: None Clinical information provided by:: patient Social determinants that could affect healthcare access:: alcohol use Patient has the following chronic illnesses:: Chronic alcoholism How is presenting disease/condition affected by chronic disease/condition?: exacerbated by Evaluation data The following diagnostics were reviewed and interpreted by me:: other (specify) Lab and/or radiology exams considered but not ordered:: None Interpretation Summary: None Medications / Prescriptions Medications or Prescriptions considered but not ordered:: None Medication administrations:: Medication Administration History Discontinued Medications Acetaminophen (Acetaminophen 500 Mg Tablet) 500 mg PO X1 ONE Stop: 05/16/25 19:33 Last Admin: 05/16/25 20:04 Dose: 500 mg Documented By: Tylenol Consultations Consultation(s) initiated? (list below): No Diagnosis Differential diagnosis alcohol: alcohol intoxication and alcohol withdrawal sy ndrome Most likely diagnosis given after review of the tests above:: Alcohol abuse, hallucination Admission Indicated Admission indicated?: not indicated Explain why admission is indicated or not indicated:: Stable Admission Request Was there a request for admission?: No Disposition Plan Disposition Plan: Discharge Discharge Attestation Discharge Attestation: The patient was given an opportunity to ask questions and understood the discharge instructions. Discharge instructions specifically effects, indications for sooner follow up or return to the emergency department, and the expected course of current diagnosis. Patient condition: Stable
[2025-05-16] MEDS: ACETAMINOPHEN 500 MG TABLET PO (20:04)
[2025-05-16 23:01] VITALS: RESP 18
== END 2025-05-16 23:02 | disposition home or self-care (01) ==
PROVIDERS: Emergency Provider Emergency Medicine
DX: F10.20 Alcohol dependence, uncomplicated (principal); R44.3 Hallucinations, unspecified
CPT/HCPCS: 99283; A9270

== ENCOUNTER 2025-05-22 17:46 | Emergency (ER) | payer MEDICAID, SELFPAY ==
[2025-05-22 17:49] VITALS: BMI 26.6
[2025-05-22 17:50] VITALS: BP 104/69; PULSE 99; RESP 19; TEMP 36.6; O2SAT 99
--- NOTE | 2025-05-22 18:02 | EKG_ITS ---
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
--- NOTE | 2025-05-22 18:07 | EDNOTE_ITS ---
ED Medical Clearance RME/HPI General Stated complaint: MEDICAL CLEARANCE Time Seen by Provider: 05/22/25 17:59 Arrival date/time: 05/22/25 17:46 RME / HPI RME / HPI Narrative: 44-year-old male patient came in for evaluation regarding medical clearance. Patient got incarcerated today for warrants., Patient is known to this emergency room, always complaining of chest pain. I saw this patient for several years already the same complaints alcoholic intoxication and chest pain while in the retirement patient complained of chest pain. According to him it is worse with palpation. Denies any cough denies any shortness of breath denies any other complaints. They are also concerned about low blood pressure. No vomiting no diarrhea no fever. Related Information Previous Rx's ?Medication ?Instructions ?Recorded pantoprazole 40 mg tablet,delayed 40 mg PO QDAY #60 ta bs 08/11/24 release thiamine mononitrate (vit B1) 100 100 mg PO QDAY #30 t abs 04/02/25 mg tablet Allergies Allergy/AdvReac Type Severity Reaction Status Date / Time No Known Allergies Allergy Verified 05/16/25 18:18 Review of Systems Review of Systems Narrative Review of Systems: Review of system reviewed and within normal limits except mentioned in HPI ED Exam Narrative Physical exam: VITAL SIGNS: Reviewed. GENERAL APPEARANCE: Alert and interactive, follows commands, no acute distress, HEAD AND FACE: Non-traumatic. ENT: PERRL, pink conjunctivitis, eyelid no trauma, Mucous membrane moist. NECK: Supple, nontender, no nuchal rigidity. CHEST: Anterior chest wall tenderness bilateral, no crepitus, no paradoxical movement, no retractions. LUNGS: Clear, well ventilated, symmetric, no rales, no wheezing, no ronchi, no stridor, good breath sounds bilaterally. HEART: Regular rate, regular rhythm, no murmur, no gallops. ABDOMEN: Soft, positive bowel sounds, nondistended, no guarding, nontender, no rebound, no masses, RECTAL: Deferred. GENITAL: Deferred. NEUROLOGICAL: Gross motor function intact sensory function intact, Appropriate for age. MUSCULOSKELETAL: low back nontender, full range of motion. EXTREMITIES: Nontender, full range of motion. SKIN: Color pink, dry, no rash, no lacerations, no abrasions, no contusions. LYMPHATICS: Deferred. Course Quality Measures none Orders Category Date Time Status EKG (ED ONLY) *Do not use* NOW Care 05/22/25 18:02 Active EKG (ED Only) Stat Exams 05/22/25 18:02 Ordered Vital Signs Vital signs: Vital Signs Temperature 97.9 F 05/22/25 17:50 Pulse Rate 99 05/22/25 17:50 Respiratory Rate 19 05/22/25 17:50 Blood Pressure 104/69 05/22/25 17:50 Pulse Oximetry (%) 99 05/22/25 17:50 Oxygen Delivery Method Room Air 05/22/25 17:50 Medical Clearance MDM Narrative MDM Narrative:: 44-year-old male patient came in for evaluation regarding medical clearance. P atient got incarcerated today for warrants., Patient is known to this emergency room, always complaining of chest pain. I saw this patient for several years already the same complaints alcoholic intoxication and chest pain while in the retirement patient complained of chest pain. According to him it is worse with palpation. Denies any cough denies any shortness of breath denies any other complaints. They are also concerned about low blood pressure. No vomiting no diarrhea no fever. Patient EKG showed Patient is medically cleared for incarceration. Patient blood pressure was noted to be 104/69, heart rate of 99, O2 sat of 99% on room air. Patient data External records reviewed:: None Clinical information provided by:: patient Social determinants that could affect healthcare access:: alcohol use Patient has the following chronic illnesses:: Homelessness, chronic alcohol abuse How is presenting disease/condition affected by chronic disease/condition?: exacerbated by Evaluation data The following diagnostics were reviewed and interpreted by me:: EKG tracing(s) Lab and/or radiology exams considered but not ordered:: None Interpretation Summary: EKG shows sinus rhythm, ventricular rate of 89 bpm, no ST segment elevation depression noted. Medications / Prescriptions Medications or Prescriptions considered but not ordered:: None Medication administrations:: None Consultations Consultation(s) initiated? (list below): No Diagnosis Medical Clearance Differential Diagnosis: other Most likely diagnosis given after review of the tests above:: Stable Admission Indicated Admission indicated?: not indicated Admission Request Was there a request for admission?: No Disposition Plan Disposition Plan: Discharge Discharge Attestation Discharge Attestation: Patient condition: Stable Discharge Plan Plan Patient Disposition: HOME (Self Care) Discharge Disposition comment: Stable Prescriptions/Referrals Prescriptions/Med Rec: No Action pantoprazole 40 mg tablet,delayed release (DR/EC) 40 mg PO QDAY Qty: 60 0RF thiamine mononitrate (vit B1) 100 mg Tablet 100 mg PO QDAY Qty: 30 0RF Problem List Clinical Impression: Costochondritis, Medical clearance for incarceration Patient/Caregiver Discharge Instructions Discharge Activity: activity as tolerated Education Materials: ED Chest Wall Pain, Costochondritis Additional Instructions: Thank you for the opportunity for serving you today. You are stable for discharged . Print Language: Wolof Stand Alone Forms: Kallie Award Info., Patient Portal Info Letter PA/[employer] Supervising Physician PA/[employer] Supervising Physician: MD Amanda
== END 2025-05-22 18:25 | disposition home or self-care (01) ==
PROVIDERS: Emergency Provider Family Medicine
DX: Z02.89 Encounter for other administrative examinations (principal); M94.0 Chondrocostal junction syndrome [Tietze]
CPT/HCPCS: 93005; 99283

== ENCOUNTER 2025-05-26 18:29 | Emergency (ER) | payer MEDICAID, SELFPAY ==
[2025-05-26] VITALS (7 sets, daily range): BP systolic 99–130; BP diastolic 68–93; PULSE 99–114; RESP 15–20; TEMP 36.8–38; O2SAT 94–99; BMI 26.2; BMI 27.4
--- NOTE | 2025-05-26 19:14 | EKG_ITS ---
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
--- NOTE | 2025-05-26 19:25 | XR_ITS ---
Examination: AP chest single view TECHNIQUE: AP portable upright chest single view INDICATIONS: Chest pain shortness of breath today. FINDINGS: Mild prominence left ventricle Moderate vascular congestion No lobar pneumonia or gilberto pulmonary edema IMPRESSION: Moderate vascular congestion
--- NOTE | 2025-05-26 19:32 | PD.EDCHEST ---
ED Chest Pain RME/HPI General Chief Complaint: Chest Pain Stated Complaint: CHEST PAIN Arrival date/time: 05/26/25 18:29 RME / HPI RME / HPI narrative: DR. AQUINO MAIN ED EVALUATION: 44 y/o male with Hx of Alcohol Abuse, Methamphetamine use, [place], HTN, and Angina BIB [facility] presents to ED c/o left upper chest pain and night sweats x 6 days. Patient states he feels pain with inhalation and movement. He avoids coughing as it also causes him pain. Patient has tried Tylenol with mild relief. Denies any fever. Josemanuel denies any recent injury. Related Data Previous Rx's ?Medication ?Instructions ?Recorded pantoprazole 40 mg tablet,delayed 40 mg PO QDAY #60 tabs 08/11/24 release thiamine mononitrate (vit B1) 100 100 mg PO QDAY #30 tabs 04/02/25 mg tablet Allergies Allergy/AdvReac Type Severity Reaction Status Date / Time No Known Allergies Allergy Verified 05/16/25 18:18 Review of Systems Review of Systems Systems Reviewed: All systems reviewed, normal except as documented Past Medical History Past Medical History NEUROLOGIC: Positive Seizures (from etoh withdrawal, no medications regularly) CARDIAC: Positive Cardiac Disorders, Myocardial Infarction, Angina and Hypertension GASTROINTESTINAL: Positive Hepatitis, Gastrointestinal Bleed, Esophageal Varices and Gastroesophageal Reflux Disease HEMATOLOGIC: Positive Anemia PSYCHO/SOCIAL: Positive Recreational Drug Use, Depression and Anxiety OTHER HISTORY: Positive Hospitalization, Falls, Blood Transfusions and Chicken Pox Social History SUBSTANCE USE: methamphetamine ED Exam Narrative Physical exam: GENERAL APPEARANCE: alert and oriented x 4, well-developed, well-nourished, no acute distress VITALS: All vitals were reviewed and the pulse ox is 96% on room air, which is normal according to my interpretation. HEENT: Normocephalic, atraumatic; pupils equal, round, reactive to light; EOMI; mucous membranes pink, moist; oropharynx clear NECK: Supple LUNGS: CTABL; no wheezes, no rales, no rhonchi HEART: Regular rate, regular rhythm; normal S1, S2; no murmurs CHEST: Left anterior chest wall tenderness ABDOMEN: non distended; normal BS; soft, no tenderness, no guarding, no rebound; no masses, no organomegaly, no hernia BACK: no CVA tenderness EXTREMITIES: atraumatic; no edema NEUROLOGIC: awake; alert and oriented x4; cranial nerves II-XII grossly intact; no focal sensory or motor deficits PSYCHIATRIC: appropriate mood and affect SKIN: warm, dry, normal color; no rashes Course Course Course Narrative: CXR is ordered for determining the etiology of shortness of breath. 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 Care 05/26/25 19:25 Active EKG (ED ONLY) *Do not use* NOW Care 05/26/25 19:14 Active EKG (ED Only) Stat Exams 05/26/25 19:14 Draft XR chest 1V portable Stat Exams 05/26/25 19:25 Completed B-Type Natriuretic Peptide Stat Lab 05/26/25 19:30 Completed Blood Culture (Lab) Stat Lab 05/26/25 19:30 Received CBC Stat Lab 05/26/25 19:30 Completed Comprehensive Metabolic Panel Stat Lab 05/26/25 19:30 Completed Lactate (Lactic Acid) Stat Lab 05/26/25 19:30 Completed Lipase Stat Lab 05/26/25 19:30 Completed Magnesium Stat Lab 05/26/25 19:30 Completed Partial Thromboplastin Time Stat Lab 05/26/25 19:30 Completed Procalcitonin Stat Lab 05/26/25 19:30 Completed Prothrombin Time with INR Stat Lab 05/26/25 19:30 Completed Troponin I Stat Lab 05/26/25 19:30 Completed Lidocaine 5% Patch Med 05/26/25 19:32 Discontinued 1 patch TOP X1 ONE Magnesium Oxide [Mag-Ox 400] Med 05/26/25 21:43 Discontinued 800 mg PO X1 ONE Magnesium Sulfate 2 GM Ivpb [Magnesium Sulfate Ivpb] Med 05/26/25 21:33 Discontinued 2 gm in 50 ml IV X1 Vital Signs Vital signs: Vital Signs Temperature 100.4 F 05/26/25 18:33 Pulse Rate 114 H 05/26/25 18:33 Respiratory Rate 20 05/26/25 18:33 Blood Pressure 106/68 05/26/25 18:33 Pulse Oximetry (%) 98 05/26/25 18:33 Oxygen Delivery Method Nasal Cannula 05/26/25 18:33 Oxygen Flow Rate 2 05/26/25 18:33 Chest Pain MDM Narrative MDM Narrative:: Scribe Attestation: I, Kelly Negron, am scribing for and in the presence of Dr. Aquino. Provider Notation: Although this document has been carefully reviewed, there may still be some phonetic and other typographical errors.? These errors are purely grammatical due to imperfections in the software program and should not be construed in any way to? compromise the substance of the patient's medical care during this visit. Patient data External records reviewed:: [facility] previous records (Reviewed prior ED records from 05/22/25. Patient was seen for Costochondritis.) Clinical information provided by:: patient and law enforcement Social determinants that could affect healthcare access:: housing (Incarcerated) Patient has the following chronic illnesses:: Alcohol Withdrawal Seizures, Myocardial Infarction, Angina and Hypertension, Hepatitis, Gastrointestinal Bleed, Esophageal Varices, Gastroesophageal Reflux Disease, Anemia, Recreational Drug Use, Depression and Anxiety How is presenting disease/condition affected by chronic disease/condition?: exacerbated by Evaluation data The following diagnostics were reviewed and interpreted by me:: lab results, radiology exam(s) and EKG tracing(s) (EKG manual reading, my interpretation: sinus tachycardia, rate: 100 bpm, low voltage in , poor R wave progression, no acute ischemic changes.) Lab and/or radiology exams considered but not ordered:: None Interpretation Summary: RADIOLOGY Chest X-Ray: FINDINGS: Mild prominence left ventricle Moderate vascular congestion No lobar pneumonia or gilberto pulmonary edema IMPRESSION: Moderate vascular congestion Medications / Prescriptions Medications or Prescriptions considered but not ordered:: None Medication administrations:: Medication Administration History Discontinued Medications Magnesium Sulfate (Magnesium Sulfate Ivpb) 2 gm in 50 mls @ 25 mls/hr IV X1 ONE Stop: 05/26/25 23:32 Lidocaine (Lidocaine 5% 1 Patch) 1 patch TOP X1 ONE Stop: 05/26/25 19:33 Last Admin: 05/26/25 19:46 Dose: 1 patch Documented By: JAZMIN Magnesium Oxide (Magnesium Oxide 400 Mg Tablet) 800 mg PO X1 ONE Stop: 05/26/25 21:44 Last Admin: 05/26/25 21:47 Dose: 800 mg Documented By: CB See above Consultations Consultation(s) initiated? (list below): No Diagnosis Chest Pain Differential Diagnosis: pneumothorax, stable angina, unstable angina pectoris, atypical chest pain, st elevation myocardial infarction, costochondritis, chest pain and biliary colic Most likely diagnosis given after review of the tests above:: Anterior chest wall pain, Hypomagnesemia Admission Indicated Admission indicated?: not indicated Explain why admission is indicated or not indicated:: Patient does not meet admission criteria. Admission Request Was there a request for admission?: No Disposition Plan Disposition Plan: Discharge Discharge Attestation Discharge Attestation: The patient and all family members were given an opportunity to ask questions and understood the discharge instructions. Discharge instructions specifically effects, indications for sooner follow up or return to the emergency department, and the expected course of current diagnosis. Patient condition: Stable Discharge Plan Plan Patient Disposition: Custodial/Court/Law Prescriptions/Referrals Prescriptions/Med Rec: No Action pantoprazole 40 mg tablet,delayed release (DR/EC) 40 mg PO QDAY Qty: 60 0RF thiamine mononitrate (vit B1) 100 mg Tablet 100 mg PO QDAY Qty: 30 0RF Referrals: No Primary/Family,Physician [Primary Care Provider] - In 1 week Problem List Clinical Impression: Anterior chest wall pain, Hypomagnesemia Patient/Caregiver Discharge Instructions Education Materials: ED Chest Pain, Noncardiac Print Language: Latvian
[2025-05-26 19:43] LABS: Lactate (Lactic Acid) 1.1 mMol/L (0.4-2.0)
[2025-05-26 19:46] LABS: Basophils # (Auto) 0.1 Thou/mm3 (0.0-0.2); Basophils % (Auto) 1 % (0-2.5); Eosinophils # (Auto) 0.3 Thou/mm3 (0.0-0.5); Eosinophils % (Auto) 6 % (0-10); Hematocrit 24.7 % (41.0-53.0); Immature Granulocytes Auto 0.03 Thou/mm3 (0.00-0.00); Lymphocytes # (Auto) 0.7 Thou/mm3 (1.0-4.8); Lymphocytes % (Auto) 12 % (10-50); Mean Corpuscular HGB Conc 33.6 g/dl (31.0-37.0); Mean Corpuscular Hemoglobin 28.5 pg (25.0-35.0); Mean Corpuscular Volume 85 fL (80-100); Monocytes # (Auto) 0.7 Thou/mm3 (0.0-0.8); Monocytes % (Auto) 12 % (0-12); Neutrophils # (Auto) 4.2 Thou/mm3 (1.8-7.7); Neutrophils % (Auto) 69 % (37-80); Nucleated Red Blood Cell # 0.00 Thou/mm3 (0.00-0.00); Nucleated Red Blood Cell % 0 /100 WBC (0); RDW Standard Deviation 68.0 fL (35.1-43.9); Red Blood Count 2.91 Miln/mm3 (4.50-5.90); White Blood Count 6.0 Thou/mm3 (3.8-10.6)
[2025-05-26] MEDS: LIDOCAINE 5% 1 PATCH TOP (19:46)
[2025-05-26 19:50] LABS: Hemoglobin 8.3 g/dL (13.5-16.0)
[2025-05-26 19:51] LABS: Platelet Count 70 Thou/mm3 (140-440)
[2025-05-26 20:00] LABS: INR 1.5 (0.9-1.3); Partial Thromboplastin Time 32.8 Seconds (22.0-36.0); Prothrombin Time 16.4 Seconds (9.0-12.2)
[2025-05-26 20:18] LABS: B-Type Natriuretic Peptide 100 pg/mL (0-100)
[2025-05-26 20:33] LABS: Alanine Aminotransferase 18 U/L (10-49); Albumin, Serum 3.2 gm/dL (3.5-5.0); Albumin/Globulin Ratio 0.9 (1.2-2.2); Alkaline Phosphatase 222 U/L (46-116); Anion Gap 9 (7-16); Aspartate Amino Transferase 71 U/L (0-34); BUN/Creatinine Ratio 10 Ratio (12-20); Bilirubin,Total 2.4 mg/dL (0.3-1.2); Blood Urea Nitrogen 6 mg/dL (9-23); Calcium 8.6 mg/dL (8.3-10.6); Calcium (Corrected) 9.2 mg/dL (8.5-10.1); Carbon Dioxide 24.2 mMol/L (20.0-31.0); Chloride 104 mMol/L (98-107); Creatinine (Component) 0.6 mg/dL (0.6-1.3); Estimated Creatinine Clearance 150.1 mL/min (>60); Globulin 3.7 gm/dL (2.3-3.5); Glucose 105 mg/dL (74-106); Lipase 30 U/L (12-53); Magnesium 1.1 mg/dL (1.6-2.6); Osmolality,Calculated 271 (275-295); Potassium 3.9 mMol/L (3.4-5.1); Procalcitonin 0.13 ng/ml (0.0-0.49); Sodium 137 mMol/L (136-145); Total Protein 6.9 gm/dL (5.7-8.2); Troponin I < 0.020 ng/mL (0.0-0.045); eGFR > 60 See Note
[2025-05-26 20:49] LABS: Slide Review Platelets confirmed
[2025-05-26] MEDS: MAGNESIUM OXIDE 400 MG TABLET 800 MG PO (21:47)
== END 2025-05-26 21:53 ==
PROVIDERS: Emergency Provider Emergency Medicine
DX: R07.89 Other chest pain (principal); E83.42 Hypomagnesemia; R09.89 Other specified symptoms and signs involving the circulatory and respiratory systems; R94.31 Abnormal electrocardiogram [ECG] [EKG]; R00.0 Tachycardia, unspecified
CPT/HCPCS: 36415; 71045; 80053; 83605; 83690; 83735; 83880; 84145; 84484; 85025; 85610; 85730; 87040; 87400; 87811; 93005; 99284; J3490; A9270

== ENCOUNTER 2025-06-19 22:59 | Emergency (ER) | payer MEDICAID, SELFPAY ==
[2025-06-19 23:00] VITALS: BP 111/78; PULSE 93; RESP 18; TEMP 36.7; O2SAT 97
[2025-06-19 23:45] VITALS: PULSE 92; RESP 18; O2SAT 98
[2025-06-19 23:52] VITALS: BMI 27.8
[2025-06-20] VITALS (34 sets, daily range): BP systolic 87–113; BP diastolic 56–86; PULSE 62–94; RESP 8–21; TEMP 36.6–37.1; O2SAT 87–100
--- NOTE | 2025-06-20 00:32 | PD.EDRME ---
Rapid Medical Screening Exam RME Arrival date/time: 06/19/25 22:59 Chief Complaint: Chest Pain Vital signs: Vital Signs Temperature 98.0 F 06/19/25 23:00 Pulse Rate 93 06/19/25 23:00 Respiratory Rate 18 06/19/25 23:00 Blood Pressure 111/78 06/19/25 23:00 Pulse Oximetry (%) 97 06/19/25 23:00 Oxygen Delivery Method Room Air 06/19/25 23:00 RME Narrative: chest pain x3 weeks
--- NOTE | 2025-06-20 00:33 | XR_ITS ---
Examination: PA chest single view TECHNIQUE: Upright PA chest single view. Date and time: June 20, 2025, 0039 hours, comparison May 26, 2025. INDICATIONS: Chest pain and shortness of breath beginning 3 weeks ago FINDINGS: Minor prominence left ventricle No pneumonia or pulmonary edema. Old right-sided rib fractures IMPRESSION: No active disease.
[2025-06-20 01:02] LABS: Basophils # (Auto) 0.0 Thou/mm3 (0.0-0.2); Basophils % (Auto) 0 % (0-2.5); Eosinophils # (Auto) 0.4 Thou/mm3 (0.0-0.5); Eosinophils % (Auto) 7 % (0-10); Hematocrit 21.3 % (41.0-53.0); Immature Granulocytes Auto 0.01 Thou/mm3 (0.00-0.00); Lymphocytes # (Auto) 1.0 Thou/mm3 (1.0-4.8); Lymphocytes % (Auto) 18 % (10-50); Mean Corpuscular HGB Conc 30.5 g/dl (31.0-37.0); Mean Corpuscular Hemoglobin 27.3 pg (25.0-35.0); Mean Corpuscular Volume 90 fL (80-100); Monocytes # (Auto) 0.3 Thou/mm3 (0.0-0.8); Monocytes % (Auto) 5 % (0-12); Neutrophils # (Auto) 3.9 Thou/mm3 (1.8-7.7); Neutrophils % (Auto) 69 % (37-80); Nucleated Red Blood Cell # 0.00 Thou/mm3 (0.00-0.00); Nucleated Red Blood Cell % 0 /100 WBC (0); RDW Standard Deviation 67.9 fL (35.1-43.9); Red Blood Count 2.38 Miln/mm3 (4.50-5.90); White Blood Count 5.6 Thou/mm3 (3.8-10.6)
[2025-06-20 01:04] LABS: Hemoglobin 6.5 g/dL (13.5-16.0)
[2025-06-20 01:05] LABS: Platelet Count 31 Thou/mm3 (140-440)
[2025-06-20 01:14] LABS: B-Type Natriuretic Peptide 128 pg/mL (0-100)
[2025-06-20 01:15] LABS: Alanine Aminotransferase < 7 U/L (10-49); Albumin, Serum 3.3 gm/dL (3.5-5.0); Albumin/Globulin Ratio 0.9 (1.2-2.2); Alkaline Phosphatase 276 U/L (46-116); Anion Gap 12 (7-16); Aspartate Amino Transferase 83 U/L (0-34); BUN/Creatinine Ratio 8 Ratio (12-20); Bilirubin,Total 2.5 mg/dL (0.3-1.2); Blood Urea Nitrogen < 5 mg/dL (9-23); Calcium 7.8 mg/dL (8.3-10.6); Calcium (Corrected) 8.4 mg/dL (8.5-10.1); Carbon Dioxide 22.0 mMol/L (20.0-31.0); Chloride 108 mMol/L (98-107); Creatinine (Component) 0.6 mg/dL (0.6-1.3); Estimated Creatinine Clearance 150.9 mL/min (>60); Globulin 3.8 gm/dL (2.3-3.5); Glucose 99 mg/dL (74-106); Osmolality,Calculated 280 (275-295); Potassium 3.1 mMol/L (3.4-5.1); Sodium 142 mMol/L (136-145); Total Protein 7.1 gm/dL (5.7-8.2); Troponin I < 0.020 ng/mL (0.0-0.045); eGFR > 60 See Note
[2025-06-20 01:20] LABS: Slide Review Platelets confirmed
--- NOTE | 2025-06-20 03:01 | EDNOTE_ITS ---
ED Chest Pain RME/HPI General Chief Complaint: Chest Pain Stated Complaint: ETOH Time Seen by Provider: 06/20/25 02:49 Arrival date/time: 06/19/25 22:59 RME / HPI RME / HPI narrative: chest pain x3 weeks DR. SINHA MAIN ED EVALUATION: 44 y/o male with Hx of Alcohol Abuse, Methamphetamine use, Esophageal Varices, and GI Bleed presents to ED c/o chest pain x 3 weeks. Patient also reports black colored stools. No other concerns or complaints expressed at this time. Related Data Previous Rx's ?Medication ?Instructions ?Recorded pantoprazole 40 mg tablet,delayed 40 mg PO QDAY #60 ta bs 08/11/24 release thiamine mononitrate (vit B1) 100 100 mg PO QDAY #30 t abs 04/02/25 mg tablet Allergies Allergy/AdvReac Type Severity Reaction Status Date / Time No Known Allergies Allergy Verified 06/19/25 23:45 Review of Systems Review of Systems Systems Reviewed: All systems reviewed, normal except as documented Past Medical History Past Medical History NEUROLOGIC: Positive Seizures CARDIAC: Positive Cardiac Disorders, Myocardial Infarction, Angina and Hypertension GASTROINTESTINAL: Positive Hepatitis, Gastrointestinal Bleed, Esophageal Varices and Gastroesophageal Reflux Disease HEMATOLOGIC: Positive Anemia PSYCHO/SOCIAL: Positive Recreational Drug Use, Depression and Anxiety OTHER HISTORY: Positive Hospitalization, Falls, Blood Transfusions and Chicken Pox Social History SMOKING STATUS: Current every day smoker SUBSTANCE USE: methamphetamine ED Exam Narrative Physical exam: Generally patient has a strong smell of alcohol on his breath. He is in no obvious distress. Heart regular rate and rhythm lungs clear to auscultation equal bilaterally abdomen soft nondistended nontender rectal exam showed minimal brown-colored stool in the vault no gross blood and guaiac negative. Skin is cool pale and dry. Neurologic exam shows the patient answers questions appropriately. No focal motor deficits. Course Quality Measures none Orders Category Date Time Status EKG (ED ONLY) *Do not use* NOW Care 06/19/25 23:55 Completed CXR [XR chest 1V] Stat Exams 06/20/25 00:33 Taken EKG (ED Only) Stat Exams 06/19/25 23:55 Ordered BNP [B-Type Natriuretic Peptide] Stat Lab 06/20/25 00:48 Completed CBC Stat Lab 06/20/25 00:48 Completed CMP [Comprehensive Metabolic Panel] Stat Lab 06/20/25 00:48 Completed Troponin I Stat Lab 06/20/25 00:48 Completed Type and Screen Stat Lab 06/20/25 03:02 Ordered prbc [Red Blood Cells] Stat Lab 06/20/25 03:02 Ordered Vital Signs Vital signs: Vital Signs Temperature 98.0 F 06/19/25 23:00 Pulse Rate 93 06/19/25 23:00 Respiratory Rate 18 06/19/25 23:00 Blood Pressure 111/78 06/19/25 23:00 Pulse Oximetry (%) 97 06/19/25 23:00 Oxygen Delivery Method Room Air 06/19/25 23:00 Chest Pain MDM Narrative MDM Narrative:: Scribe Attestation: Kelly Landers, am scribing for and in the presence of Dr. Sinha. Provider Notation: Although this document has been carefully reviewed, there may still be some phonetic and other typographical errors.? These errors are purely grammatical due to imperfections in the software program and should not be construed in any way to? compromise the substance of the patient's medical care during this visit. Guaiac exam was negative. Patient is anemic with a hemoglobin of 6.5. Patient has been anemic in the past with hemoglobins in the 7. He will be typed and crossed and transfused with 2 units of packed RBCs. Cardiac workup is unremarkable. He has a longstanding history of alcohol abuse. Patient is to refrain from drinking alcohol. He is stable for discharge after transfusion. I interpreted all labs. Patient data External records reviewed:: [facility] previous records (Reviewed prior ED records from 05/26/25. Patient was seen for Anterior chest wall pain.) Clinical information provided by:: patient Social determinants that could affect healthcare access:: alcohol use (Methamphetamine) Patient has the following chronic illnesses:: Seizures, Myocardial Infarction, Angina, Hypertension, Hepatitis, Gastrointestinal Bleed, Esophageal Varices, Gastroesophageal Reflux Disease, Anemia, Depression and Anxiety How is presenting disease/condition affected by chronic disease/condition?: exacerbated by Evaluation data The following diagnostics were reviewed and interpreted by me:: lab results, radiology exam(s) and EKG tracing(s) Lab and/or radiology exams considered but not ordered:: None Interpretation Summary: RADIOLOGY Chest X-Ray: Pending official radiology report. Medications / Prescriptions Medications or Prescriptions considered but not ordered:: None Medication administrations:: See above. Consultations Consultation(s) initiated? (list below): No Diagnosis Chest Pain Differential Diagnosis: fracture of rib, stable angina, unstable angina pectoris, atypical chest pain, st elevation myocardial infarction, costochondritis, chest pain and other (Esophageal varices, GI bleed) Most likely diagnosis given after review of the tests above:: None Admission Indicated Admission indicated?: not indicated Explain why admission is indicated or not indicated:: Patient does not meet admission criteria. Admission Request Was there a request for admission?: No Disposition Plan Disposition Plan: Discharge Discharge Attestation Discharge Attestation: The patient and all family members were given an opportunity to ask questions and understood the discharge instructions. Discharge instructions specifically effects, indications for sooner follow up or return to the emergency department, and the expected course of current diagnosis. Patient condition: Stable Discharge Plan Plan Patient Disposition: HOME (Self Care) Prescriptions/Referrals Prescriptions/Med Rec: No Action pantoprazole 40 mg tablet,delayed release (DR/EC) 40 mg PO QDAY Qty: 60 0RF thiamine mononitrate (vit B1) 100 mg Tablet 100 mg PO QDAY Qty: 30 0RF Problem List Clinical Impression: Anemia, Alcohol abuse Patient/Caregiver Discharge Instructions Education Materials: Anemia, Alcohol Addiction Additional Instructions: Refrain from drinking alcohol. Follow-up with your doctor. Return to ER as needed or if condition worsens. Print Language: Bhutanese Stand Alone Forms: Kallie Award Info., Patient Portal Info Letter
== END 2025-06-20 12:14 | disposition home or self-care (01) ==
LOC: SERX 06-20 05:49
PROVIDERS: Physician Assistant; Emergency Provider Emergency Medicine
DX: D64.9 Anemia, unspecified (principal); F10.10 Alcohol abuse, uncomplicated; R07.9 Chest pain, unspecified; R00.1 Bradycardia, unspecified; I10 Essential (primary) hypertension; I25.2 Old myocardial infarction; K21.9 Gastro-esophageal reflux disease without esophagitis; F17.200 Nicotine dependence, unspecified, uncomplicated; Z79.899 Other long term (current) drug therapy
CPT/HCPCS: 36415; 36430; 71045; 80053; 83880; 84484; 85025; 86850; 86900; 86901; 86921; 86922; 93005; 99283; P9016

== ENCOUNTER 2025-06-23 18:45 | Inpatient (IN) | payer MEDICAID, SELFPAY ==
[2025-06-23] VITALS (8 sets, daily range): BP systolic 93–124; BP diastolic 58–87; PULSE 79–101; RESP 12–20; TEMP 36.5–37.1; O2SAT 90–100; BMI 27.6
--- NOTE | 2025-06-23 19:05 | XR_ITS ---
Examination: AP chest single view TECHNIQUE: AP portable upright chest single view. Date and time: June 23, 2025, 1939 hours. INDICATIONS: Chest pain today. FINDINGS: Atelectasis versus early pneumonia left base. Right lung clear. Mild vascular congestion. Minor prominence left ventricle. Old right-sided rib fractures. IMPRESSION: Atelectasis versus early pneumonia left base
--- NOTE | 2025-06-23 19:05 | XR_ITS ---
Examination: CT abdomen with intravenous contrast CT pelvis with intravenous contrast 2-D coronal reconstructions 2-D sagittal reconstructions Date and time of exam:June 23, 2052 hours, comparison CT chest abdomen pelvis March 19, 2025 INDICATIONS: Abdominal pain today, anemia and laboratory examination. CTDI: vol (mGy) 7.59 DLP: (mGycm) 459 Technique: Multiple axial sections of the abdomen and pelvis have been obtained. 64 slice high-resolution scanner used. 3 mm axial sections have been obtained, post intravenous injection 60 cc Isovue 370 2-D sagittal, coronal reconstructions obtained. Low dose protocols were performed. One or more of the following dose reduction techniques were used; automated exposure control, adjustment of the mA and/or KV according to patient size, use of iterative reconstruction technique. Findings: Mild enlargement cardiac contour 12 mm pulmonary nodule left lower lobe Cirrhosis, liver is irregular in contour with prominent splenomegaly No definite gallstones Esophageal varices Gastric varices Portosystemic collateral vessels medial to the spleen No pancreatic mass No hydronephrosis Hepatic colopathy with wall thickening and hyperemia involving the colon No bowel obstruction Normal appendix Normal seminal vesicles No prostatomegaly Irregular urinary bladder wall thickening on the right side up to 12 mm Diffuse thickening of the rectal wall Moderate osteopenia IMPRESSION: Again noted 2 mm pulmonary nodule left lower lobe Cirrhosis Prominent splenomegaly Esophageal varices. Gastric varices Hepatic colopathy Abnormal urinary bladder wall thickening more prominent on the right side up to 12 mm, differential would include cystitis, early bladder cancer, follow up recommended and consider urology consultation
--- NOTE | 2025-06-23 19:05 | EKG_ITS ---
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
--- NOTE | 2025-06-23 19:19 | PD.EDALCOH ---
ED Alcohol RME/HPI General Chief Complaint: Chest Pain Stated Complaint: CHEST PAIN Time Seen by Provider: 06/23/25 19:04 Arrival date/time: 06/23/25 18:45 Limitations: no limitations RME / HPI RME / HPI narrative: 44-year-old male who is here today for alcohol intoxication and anemia. He was seen by his primary care provider for this today, was found to have a hemoglobin of 6.7. He has fatigue and weakness. His stool guaiac was positive as an outpatient. Patient was seen in our ER recently with similar symptoms and received 2 units of PRBCs last week. He has no reported falls or syncope. No hematemesis. MD complaint: alcohol intoxication Related Data Previous Rx's ?Medication ?Instructions ?Recorded pantoprazole 40 mg tablet,delayed 40 mg PO QDAY #60 tabs 08/11/24 release thiamine mononitrate (vit B1) 100 100 mg PO QDAY #30 tabs 04/02/25 mg tablet Allergies Allergy/AdvReac Type Severity Reaction Status Date / Time No Known Allergies Allergy Verified 06/19/25 23:45 Review of Systems Review of Systems Systems Reviewed: All systems reviewed, normal except as documented ED Exam General Limitations: Present no limitations General appearance: Present alert, appears intoxicated and other (He is unkempt) Head Head exam: Present atraumatic Eye Eye exam: Present normal appearance, PERRL and EOMI ENT ENT exam: Present normal exam, normal oropharynx and mucous membranes moist Neck Neck exam: Present normal inspection, full ROM and trachea midline Chest Chest inspection: Present normal inspection and symmetric chest wall rise Respiratory Respiratory exam: Present normal lung sounds bilaterally Cardiovascular Cardiovascular exam: Present regular rate, normal rhythm and normal heart sounds Abdominal Exam Abdominal exam: Present soft and normal bowel sounds Rectal Exam Rectal exam: Present normal rectal tone and heme (+) stool (Rectal exam performed with Bailee ABDUL present.) Extremities Exam Extremities exam: Present normal inspection and full ROM Back Exam Back exam: Present normal inspection and full ROM Neurological Exam Neurological exam: Present alert Psychiatric Psychiatric exam: Present normal affect and normal mood Skin Skin exam: Present warm, dry, intact and normal color Course Quality Measures none Orders Category Date Time Status CT Screening NOW Care 06/23/25 19:05 Active EKG (ED ONLY) *Do not use* NOW Care 06/23/25 19:05 Completed Occult Blood,Stool (Nursing) ONCE Care 06/23/25 21:28 Active Consult to Gastroenterology Stat Cons 06/23/25 21:[address] abdomen pelvis w con Stat Exams 06/23/25 19:05 Completed EKG (ED Only) Stat Exams 06/23/25 19:05 Draft XR chest 1V Stat Exams 06/23/25 19:05 Completed Alcohol, Blood Medical Stat Lab 06/23/25 19:40 Completed CBC Stat Lab 06/23/25 19:40 Completed CMP [Comprehensive Metabolic Panel] Stat Lab 06/23/25 19:40 Completed Lipase Stat Lab 06/23/25 19:40 Completed Troponin I Stat Lab 06/23/25 19:40 Completed Type and Screen Stat Lab 06/23/25 19:40 Results UA, C/S IF [Urinalysis, C/S if Indicated] Stat Lab 06/23/25 21:24 Completed prbc [Red Blood Cells] Stat Lab 06/23/25 19:40 Results Octreotide Acet Inj [SandoSTATIN Inj] Med 06/23/25 19:07 Discontinued 50 mcg IV X1 ONE Pantoprazole Inj [Protonix Inj] Med 06/23/25 19:05 Discontinued 80 mg IVP X1 ONE Sodium Chloride 0.9% [Ns] 100 ml Med 06/23/25 19:15 Active Octreotide Acet Inj [SandoSTATIN Inj] 1,000 mcg IV 50 mcg/hr Sodium Chloride 0.9% [Ns] 100 ml Med 06/24/25 15:15 Pending Octreotide Acet Inj [SandoSTATIN Inj] 1,000 mcg IV 50 mcg/hr Vital Signs Vital signs: Vital Signs Temperature 98.7 F 06/23/25 18:50 Pulse Rate 101 H 06/23/25 18:50 Respiratory Rate 20 06/23/25 18:50 Blood Pressure 96/58 L 06/23/25 18:50 Pulse Oximetry (%) 90 L 06/23/25 18:50 Oxygen Delivery Method Room Air 06/23/25 18:50 Critical Care Time Critical Care Time Critical Care Time: Yes Total Critical Care Time (min.): 45 Attestation: The high probability of sudden, clinically significant deterioration in the patient's condition required the highest level of my preparedness to intervene urgently. The services I provided to this patient were to treat and/or prevent clinically significant deterioration. Services included the following: chart data review, reviewing nursing notes and/or old charts, documentation time, solar energy consultant and designer collaboration regarding findings and treatment options, medication orders and management, direct patient care, vital sign assessments and ordering, interpreting and reviewing diagnostic studies and lab tests. Aggregate critical care time includes only time during which I was engaged in work directly related to the patient's care, as described above, whether at bedside or elsewhere in the Emergency Department. It did not include time spent performing other reported procedures or the services of residents, students, nurses or physician assistants. Discharge Plan Plan Patient Disposition: Admit Acute Care w/in Hospital Prescriptions/Referrals Prescriptions/Med Rec: No Action pantoprazole 40 mg tablet,delayed release (DR/EC) 40 mg PO QDAY Qty: 60 0RF thiamine mononitrate (vit B1) 100 mg Tablet 100 mg PO QDAY Qty: 30 0RF Referrals: Cezar Adams MD [Primary Care Provider] - In 1 week Problem List Clinical Impression: Alcohol abuse, GI bleed Patient/Caregiver Discharge Instructions Print Language: Polish Stand Alone Forms: Kallie Award Info., Patient Portal Info Letter Alcohol MDM Narrative MDM Narrative: 44-year-old male who is here today for alcohol intoxication and anemia. He was seen by his primary care provider for this today, was found to have a hemoglobin of 6.7. He has fatigue and weakness. His stool guaiac was positive as an outpatient. Patient was seen in our ER recently with similar symptoms and received 2 units of PRBCs last week. He has no reported falls or syncope. No hematemesis. On exam, patient is unkempt and appears to be intoxicated. He does answer questions appropriately. He has stool with redness in his undergarment. Bedside Hemoccult is positive. Dr. Perla with gastroenterology was contacted at approximately 21:25 PM, he does advise admission for repeat scoping and banding. We will admit to medicine. Patient data External records reviewed:: [facility] previous records and EMS form Clinical information provided by:: patient and EMS Social determinants that could affect healthcare access:: alcohol use Patient has the following chronic illnesses:: Cirrhosis, esophageal varices, alcohol abuse How is presenting disease/condition affected by chronic disease/condition?: exacerbated by Evaluation data The following diagnostics were reviewed and interpreted by me:: lab results (Patient's hemoglobin is 7.4, hematocrit is 23.9. He has no leukocytosis. Metabolic panel reveals mildly elevated bilirubin at 2.0. AST is 83, ALT of 9, alk phos 252. Troponin is unremarkable. Urinalysis unremarkable. Alcohol level is 342.), radiology exam(s) (CT of the abdomen pelvis was obtained reveals gastric varices, esophageal varices, cirrhosis. There are some thickening of the colon) and EKG tracing(s) (Normal sinus rhythm at [address] changes or dynamic T waves.) Lab and/or radiology exams considered but not ordered:: n/a Interpretation Summary: Anemia with a hemoglobin 7.4 Medications / Prescriptions Medications or Prescriptions considered but not ordered:: n/a Medication administrations:: Medication Administration History Octreotide Acetate 1,000 mcg/ (Sodium Chloride) 102 mls @ 5.1 mls/hr IV .Q20H BRANDI; Protocol Stop: 06/28/25 19:14 Octreotide Acetate 1,000 mcg/ (Sodium Chloride) 102 mls @ 5.1 mls/hr IV .Q20H BRANDI; Protocol Stop: 06/24/25 15:14 Last Admin: 06/23/25 19:57 Dose: 50 mcg/hr, 5.1 mls/hr Documented By: SRIKANTH Discontinued Medications Octreotide Acetate (Octreotide Acet Inj 50 Mcg/Ml Vial) 50 mcg IV X1 ONE Stop: 06/23/25 19:08 Last Admin: 06/23/25 19:59 Dose: 50 mcg Documented By: SRIKANTH Pantoprazole Sodium (Pantoprazole Inj 40 Mg Vial) 80 mg IVP X1 ONE Stop: 06/23/25 19:06 Last Admin: 06/23/25 20:00 Dose: 80 mg Documented By: SRIKANTH See above Consultations Consultation(s) initiated? (list below): Yes Diagnosis Differential diagnosis alcohol: hypomagnesemia and alcohol intoxication Most likely diagnosis given after review of the tests above:: Alcohol abuse, anemia Admission Indicated Admission indicated?: indicated Admission Request Was there a request for admission?: No Disposition Plan Disposition Plan: Admit
[2025-06-23] MEDS: OCTREOTIDE ACET INJ 1,000 MCG in SODIUM CHLORIDE 0.9% 100 ML 5.1 MCG IV (19:57)
[2025-06-23] MEDS: OCTREOTIDE ACET INJ 50 mCg/ML VIAL IV (19:59)
[2025-06-23 20:01] LABS: Basophils # (Auto) 0.1 Thou/mm3 (0.0-0.2); Basophils % (Auto) 1 % (0-2.5); Eosinophils # (Auto) 0.3 Thou/mm3 (0.0-0.5); Eosinophils % (Auto) 7 % (0-10); Hematocrit 23.9 % (41.0-53.0); Immature Granulocytes Auto 0.01 Thou/mm3 (0.00-0.00); Lymphocytes # (Auto) 1.0 Thou/mm3 (1.0-4.8); Lymphocytes % (Auto) 21 % (10-50); Mean Corpuscular HGB Conc 31.0 g/dl (31.0-37.0); Mean Corpuscular Hemoglobin 27.0 pg (25.0-35.0); Mean Corpuscular Volume 87 fL (80-100); Monocytes # (Auto) 0.4 Thou/mm3 (0.0-0.8); Monocytes % (Auto) 8 % (0-12); Neutrophils # (Auto) 3.0 Thou/mm3 (1.8-7.7); Neutrophils % (Auto) 63 % (37-80); Nucleated Red Blood Cell # 0.00 Thou/mm3 (0.00-0.00); Nucleated Red Blood Cell % 0 /100 WBC (0); RDW Standard Deviation 59.4 fL (35.1-43.9); Red Blood Count 2.74 Miln/mm3 (4.50-5.90); White Blood Count 4.7 Thou/mm3 (3.8-10.6)
[2025-06-23 20:20] LABS: Hemoglobin 7.4 g/dL (13.5-16.0); Platelet Count 32 Thou/mm3 (140-440)
[2025-06-23 20:35] LABS: Alanine Aminotransferase 9 U/L (10-49); Albumin, Serum 3.2 gm/dL (3.5-5.0); Albumin/Globulin Ratio 0.9 (1.2-2.2); Alkaline Phosphatase 252 U/L (46-116); Anion Gap 12 (7-16); Aspartate Amino Transferase 83 U/L (0-34); BUN/Creatinine Ratio 8 Ratio (12-20); Bilirubin,Total 2.0 mg/dL (0.3-1.2); Blood Urea Nitrogen < 5 mg/dL (9-23); Calcium 8.0 mg/dL (8.3-10.6); Calcium (Corrected) 8.6 mg/dL (8.5-10.1); Carbon Dioxide 24.3 mMol/L (20.0-31.0); Chloride 107 mMol/L (98-107); Creatinine (Component) 0.6 mg/dL (0.6-1.3); Estimated Creatinine Clearance 150.5 mL/min (>60); Globulin 3.6 gm/dL (2.3-3.5); Glucose 103 mg/dL (74-106); Lipase 31 U/L (12-53); Osmolality,Calculated 282 (275-295); Potassium 3.5 mMol/L (3.4-5.1); Sodium 143 mMol/L (136-145); Total Protein 6.8 gm/dL (5.7-8.2); Troponin I 0.020 ng/mL (0.0-0.045); eGFR > 60 See Note
[2025-06-23 20:55] LABS: Alcohol, Blood Medical 342.0 mg/dL (0-10.0)
[2025-06-23 21:07] LABS: Slide Review Platelets confirmed
[2025-06-23 21:35] LABS: Collection Type, Urine Voided; Squamous Epithelial Cell,Urine 0 /hpf (0-5)
[2025-06-23 21:41] LABS: Amorphous Crystals,Urine Present (Absent); Bacteria,Urine Rare; Bilirubin,Urine Negative (Negative); Blood,Urine Negative (Negative); Clarity,Urine Clear (Clear/Hazy); Color,Urine Yellow (Lt Yel-Yel); Culture Indicated,Urine Not Indicated; Glucose, Urine Negative (Negative); Ketones,Urine Negative (Negative); Leukocyte Esterase,Urine Negative (Negative); Nitrite,Urine Negative (Negative); PH,Urine 6.5 (5.0-7.0); Protein,Urine Negative (Neg - Trace); RBC,Urine 1 /hpf (0-3); Specific Gravity,Urine 1.009 (1.001-1.035); Urobilinogen,Urine 3.0 mg/dL (0.0-1.0); WBC,Urine < 1 /hpf (0-5)
[2025-06-23 22:38] LABS: OBS Card Lot # 0124; OBS Developer Expiration Date 09/1/2026; OBS Developer Lot # 23003; OBS Performed By flors3; OBS QC OK? Yes; Occult Blood, Stool Positive (Negative)
--- NOTE | 2025-06-23 22:46 | ESHP_ITS ---
Documentation for date of: 06/23/25 HPI History of Present Illness Chief complaint: Anemia, melana History of present illness: 44 y/o M with PMHx significant for alcohol abuse, cirrhosis with splenomegaly and varices, frequent anemic episodes presents to the ED with complaint of anemia per outpatient PCP and melena x 2 days. Patient reports that he drinks daily, has had multiple episodes of anemia requiring blood transfusions in the past. Most recently patient received 2 units PRBC transfusion at [facility] on 06/20/2025. Outpatient PCP test found hemoglobin 6.7, patient told to present to ED. Patient also notes melena x 2 days, denies hematemesis. Reports mild left-sided chest pain, pleuritic in nature, ongoing for some time. Troponin and EKG benign. Patient denies fevers, chills, shortness of breath, nausea, vomiting. ED COURSE: Labs significant for: Hemoglobin 10.4, T. bili 2.0, AST 83, ALT 9, AP 5 2. Albumin 32. Alcohol level 342. Troponin negative. Urinalysis unremarkable. Imaging significant for: EKG showing sinus rhythm. CT A/P showed 12 mm left lower lung nodule, irregular thickening of bladder wall seen on previous imaging, cirrhosis with splenomegaly and varices. Patient received 1 unit PRBCs, octreotide drip, Protonix in the ED. PMH: Alcohol abuse, cirrhosis PSH: None SH: Reports quitting smoking over 10 years ago. 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 Reports drinking 3 beers (25 ounces) daily. Allergies:?NKDA Medications: None Review of Systems Review of Systems Systems Reviewed: All systems reviewed, normal except as documented Past Medical History Past Medical History Comments PMH COMMENT: PMH: Alcohol abuse, cirrhosis PSH: None SH: Reports quitting smoking over 10 years ago. 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 Reports drinking 3 beers (25 ounces) daily. Allergies:?NKDA Medications: None Exam Vital Signs Temp Pulse Resp BP Pulse Ox O2 Del Method O2 Flow Rate 98.0 F 90 15 107/69 100 Nasal Cannula 3 06/23/25 22:41 06/23/25 22:41 06/23/25 22:41 06/23/25 22:41 06/23/25 22:41 06/23/25 21:51 06/23/25 21:51 Narrative Exam PE: Gen: Well-developed and well-nourished. Intoxicated. HEENT: NCAT, PERRLA, EOMI, MMM, anicteric conjunctivae. CVS: normal S1 and S2. RRR. No M/R/G. Resp: CTA B/L. No rhonchi, rales, crackles or wheezing. Abd: soft, non-distended. BS+ in all 4 quadrants. Diffuse abdominal tenderness. MSK: Good ROM in BUE & BLE. No edema or rash. Left sided chest pain to palpitation. Neuro: CN II-XII grossly intact. Strength 5/5 in BUE & BLE. Alert and oriented x3. Psych: appropriate mood and affect. Results: Labs 06/23/25 19:40 06/23/25 19:40 Labs: Short CBC 06/23/25 Range/Units 19:40 WBC 4.7 (3.8-10.6) Thou/mm3 Hgb 7.4 L (13.5-16.0) g/dL Hct 23.9 L (41.0-53.0) % Plt Count 32 L (140-440) Thou/mm3 BMP 06/23/25 19:40 Sodium 143 Potassium 3.5 Chloride 107 Carbon Dioxide 24.3 BUN < 5 L Creatinine 0.6 Glucose 103 Calcium 8.0 L Cardiac Enzymes 06/23/25 Range/Units 19:40 Troponin I 0.020 (0.0-0.045) ng/mL Liver Function 06/23/25 Range/Units 19:40 Total Bilirubin 2.0 H (0.3-1.2) mg/dL AST 83 H (0-34) U/L ALT 9 L (10-49) U/L Alkaline Phosphatase 252 H (46-116) U/L Albumin 3.2 L (3.5-5.0) gm/dL Urine 06/23/25 Range/Units 21:24 Urine Color Yellow (Lt Yel-Yel) Urine Clarity Clear (Clear/Hazy) Urine pH 6.5 (5.0-7.0) Ur Specific [place] 1.009 (1.001-1.035) Urine Protein Negative (Neg - Trace) Urine Glucose (UA) Negative (Negative) Quality Measures Quality Measures VTE prophylaxis Medications Home Medications and Allergies Allergies Allergy/AdvReac Type Severity Reaction Status Date / Time No Known Allergies Allergy Verified 06/19/25 23:45 Visit Medications Acetaminophen (Acetaminophen 325 Mg Tablet) 650 mg PO Q6H PRN PRN Reason: Fever >100.4 or pain Stop: 07/23/25 22:32 Hydrocodone Bitart/Acetaminophen (Hydrocodone/Apap 5/325 Tablet) 1 tab PO Q4HR PRN PRN Reason: PAIN SCALE 4-10(Mod-Sev Stop: 06/28/25 22:32 Diazepam (Diazepam Inj 5 Mg/Ml Vial 2 Ml) 2.5 mg IVP Q2HR PRN PRN Reason: CIWA SCORE 8-13 Stop: 06/28/25 22:37 Diazepam (Diazepam Inj 5 Mg/Ml Vial 2 Ml) 5 mg IVP Q2HR PRN PRN Reason: CIWA SCORE 14-19 Stop: 06/28/25 22:37 Diazepam (Diazepam Inj 5 Mg/Ml Vial 2 Ml) 10 mg IVP Q2HR PRN PRN Reason: CIWA SCORE 20-25 Stop: 06/28/25 22:37 Octreotide Acetate 1,000 mcg/ (Sodium Chloride) 102 mls @ 5.1 mls/hr IV .Q20H BRANDI; Protocol Stop: 06/28/25 19:14 Octreotide Acetate 1,000 mcg/ (Sodium Chloride) 102 mls @ 5.1 mls/hr IV .Q20H BRANDI; Protocol Stop: 06/24/25 15:14 Last Admin: 06/23/25 19:57 Dose: 50 mcg/hr, 5.1 mls/hr Sodium Chloride (Ns) 1,000 mls @ 75 mls/hr IV .[id number] BRANDI Stop: 06/25/25 01:24 Octreotide Acetate 1,000 mcg/ (Sodium Chloride) 102 mls @ 5.1 mls/hr IV .Q20H BRANDI; Protocol Stop: 06/28/25 22:39 Ceftriaxone Sodium 2 gm/ (Sodium Chloride) 50 mls @ 100 mls/hr IV QDAY BRANDI Stop: 06/30/25 22:39 Ondansetron HCl (Ondansetron Inj 2 Mg/Ml Inj 2 Ml) 4 mg IVP Q6H PRN; Protocol PRN Reason: NAUSEA OR VOMITING Stop: 07/23/25 22:32 Pantoprazole Sodium (Pantoprazole Inj 40 Mg Vial) 40 mg IVP Q12HR BRANDI Stop: 07/24/25 08:59 Discontinued Medications Octreotide Acetate (Octreotide Acet Inj 50 Mcg/Ml Vial) 50 mcg IV X1 ONE Stop: 06/23/25 19:08 Last Admin: 06/23/25 19:59 Dose: 50 mcg Pantoprazole Sodium (Pantoprazole Inj 40 Mg Vial) 80 mg IVP X1 ONE Stop: 06/23/25 19:06 Last Admin: 06/23/25 20:00 Dose: 80 mg Assessment & Plan Plan 44 y/o M with PMHx significant for alcohol abuse, cirrhosis with splenomegaly and varices, frequent anemic episodes presents to the ED with complaint of anemia per outpatient PCP and melena x 2 days, admitted for GI bleed and anemia. #Upper GI bleed #Acute anemia #Cirrhosis with bleeding varices Patient presents with anemia 6.7 on outpatient labs, reports melena but no hematemesis. Patient has history of bleeding varices secondary to esophagitis in the past. Patient recently transfused 2 units in the ED on 06/20/2025. Hemoglobin at presentation 7.4, receiving 1 unit of blood in the ED. Dr. Perla consulted by ED, recommended admission for EGD potential banding of bleeding varices. Patient has signs of end-stage liver disease including low albumin, pancytopenia, elevated INR. Alcohol level on admission 342. - Ceftriaxone 2 g IV daily (started 06/23) - Posttransfusion H&H, follow-up - Morning coag panel ordered, follow-up - N.p.o. pending EGD - Octreotide drip - Protonix 40 mg IV twice daily - Monitor daily hemoglobin, transfuse as needed - GI consulted, appreciate recommendations #Alcohol abuse Patient reports frequent alcohol use, approximately 75 ounces of beer daily. Last drink was just prior to admission. Alcohol level on admission 342. Patient appears intoxicated at time of admission. 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 #12 mm left lower lung nodule, incidental finding #Irregular bladder wall thickening, incidental finding CT A/P showed and small findings as above. Bladder wall thickening seen on previous imaging, appears unchanged. No hematuria on urinalysis. - Outpatient follow-up DVT prophylaxis: SCDs GI prophylaxis: Protonix IV Diet: N.p.o. pending EGD Lines: Peripheral IV Code status: Full code Plan of care discussed with attending Dr. Kacie Pleitez MD PGY?2 Attending Provider Attestation/Addendum I have examined the patient, reviewed labs and imaging findings, discussed the case with the resident(s), and reviewed entered orders. I agree with the plan of care as outlined in this note, with these additional summaries/recommendations: After examination of the patient and review of the clinical data, I feel that this patient needs admission to the hospital for further treatment and evaluation. Patient is a 44-year-old male with a medical history of alcohol use disorder, cirrhosis, portal hypertension, esophageal varices, and recurrent GI bleeds presents to [facility] emergency department on 06/23/2025 with chief complaint of dark stools and anemia. Patient seen at bedside. He appears acutely intoxicated. He is slurring his words although he is alert and oriented x 4. Ethyl alcohol level 342 on admission and patient reports his last drink was this afternoon. Patient endorses dark stools and was seen by his PCP today and found to have a hemoglobin of 6.5 and was sent to the ER. Patient diagnosed with acute blood loss anemia, GI bleed, and decompensated cirrhosis. Patient most likely has upper GI bleed secondary to history of melena. Unclear how many units of blood loss at this time. Currently hemodynamically stable. Most likely secondary to esophageal/gastric varices. GI consulted with plans for endoscopic intervention. N.p.o., 2 large-bore IVs (18-gauge or larger), IVF resuscitation, type and screen, pantoprazole 80 mg IV x 1 then 40 mg IV twice daily. Continue octreotide gtt. and Rocephin 1 g daily x 7 days. 1 unit PRBCs ordered and follow-up posttransfusion H&H. Hold NSAIDs, steroids, aspirin, and all anticoagulation. Transfuse for hemoglobin less than 7. Patient does have thrombocytopenia and coagulopathy and we will monitor closely for the need of platelets or FFP. Patient has underlying cirrhosis and continues to consume alcohol although is motivated to quit drinking per patient. creative services intern referral for resources once mentation more improved. For patient's decompensated cirrhosis we will continue to monitor daily LFTs, platelet, INR and sodium. He does not appear overtly fluid overloaded at this time and we will defer diuresis in the setting of GI bleed and soft blood pressure. No more than 2 g Tylenol per day. Low-sodium diet. Outpatient follow-up with hepatology. Avoid hepatotoxic agents. Patient noted to have soft blood pressure which appears chronic and likely secondary to underlying cirrhosis. If worsens patient may be a candidate for midodrine therapy. 12 mm pulmonary nodule left lower lobe noted in follow-up outpatient for continued surveillance/management. Patient was also noted to have significantly thickened urinary bladder up to 12 mm and should follow-up with urology outpatient. No evidence of alcohol withdrawal at this time although patient is high risk and low threshold to start CIWA if needed. Patient updated on the plan and agreement. All questions answered to satisfaction. Please see residents note for additional details of management. Dr. Kacie MD
[2025-06-23] MEDS: cefTRIAXone 2 GM in SODIUM CHLORIDE 0.9% (Popper) 50 ML IV (23:04)
[2025-06-23] MEDS: SODIUM CHLORIDE 0.9% 1000 ML 1,000 ML 75 ML IV (23:05)
[2025-06-24] VITALS (9 sets, daily range): BP systolic 99–137; BP diastolic 71–86; PULSE 66–101; RESP 12–20; TEMP 36.1–36.7; O2SAT 95–100; BMI 27.3
[2025-06-24 05:01] LABS: Basophils # (Auto) 0.0 Thou/mm3 (0.0-0.2); Basophils % (Auto) 1 % (0-2.5); Eosinophils # (Auto) 0.2 Thou/mm3 (0.0-0.5); Eosinophils % (Auto) 7 % (0-10); Hematocrit 28.6 % (41.0-53.0); Hemoglobin 9.0 g/dL (13.5-16.0); Immature Granulocytes Auto 0.01 Thou/mm3 (0.00-0.00); Lymphocytes # (Auto) 0.7 Thou/mm3 (1.0-4.8); Lymphocytes % (Auto) 20 % (10-50); Mean Corpuscular HGB Conc 31.5 g/dl (31.0-37.0); Mean Corpuscular Hemoglobin 27.7 pg (25.0-35.0); Mean Corpuscular Volume 88 fL (80-100); Monocytes # (Auto) 0.3 Thou/mm3 (0.0-0.8); Monocytes % (Auto) 9 % (0-12); Neutrophils # (Auto) 2.1 Thou/mm3 (1.8-7.7); Neutrophils % (Auto) 63 % (37-80); Nucleated Red Blood Cell # 0.00 Thou/mm3 (0.00-0.00); Nucleated Red Blood Cell % 0 /100 WBC (0); RDW Standard Deviation 58.8 fL (35.1-43.9); Red Blood Count 3.25 Miln/mm3 (4.50-5.90); White Blood Count 3.3 Thou/mm3 (3.8-10.6)
[2025-06-24] MEDS: ONDANSETRON INJ 2 MG/ML INJ 2 ML 4 MG IVP ×2 (05:05→20:14)
[2025-06-24 05:08] LABS: Platelet Count 22 Thou/mm3 (140-440)
[2025-06-24] MEDS: DIAZEPAM INJ 5 MG/ML VIAL 2 ML 2.5 MG IVP ×2 (05:09→09:46)
[2025-06-24 05:14] LABS: INR 1.5 (0.9-1.3); Partial Thromboplastin Time 34.5 Seconds (22.0-36.0); Prothrombin Time 15.6 Seconds (9.0-12.2)
[2025-06-24 05:38] LABS: Slide Review Platelets confirmed
[2025-06-24 05:39] LABS: Alanine Aminotransferase 10 U/L (10-49); Albumin, Serum 2.9 gm/dL (3.5-5.0); Albumin/Globulin Ratio 0.8 (1.2-2.2); Alkaline Phosphatase 229 U/L (46-116); Anion Gap 13 (7-16); Aspartate Amino Transferase 89 U/L (0-34); BUN/Creatinine Ratio 10 Ratio (12-20); Bilirubin,Total 2.1 mg/dL (0.3-1.2); Blood Urea Nitrogen < 5 mg/dL (9-23); Calcium 7.9 mg/dL (8.3-10.6); Calcium (Corrected) 8.8 mg/dL (8.5-10.1); Carbon Dioxide 24.6 mMol/L (20.0-31.0); Cardiac Risk Estimate 4.3 RATIO (4.0-6.7); Chloride 107 mMol/L (98-107); Cholesterol 146 mg/dL (132-200); Creatinine (Component) 0.5 mg/dL (0.6-1.3); Estimated Creatinine Clearance 180.6 mL/min (>60); Globulin 3.6 gm/dL (2.3-3.5); Glucose 86 mg/dL (74-106); HDL Cholesterol 34 mg/dL (40-60); LDL Cholesterol,Calculated 90 mg/dL (0-130); Magnesium 1.3 mg/dL (1.6-2.6); Osmolality,Calculated 284 (275-295); Phosphorous 4.9 mg/dL (2.4-5.1); Potassium 3.8 mMol/L (3.4-5.1); Sodium 145 mMol/L (136-145); Total Protein 6.5 gm/dL (5.7-8.2); Triglycerides 111 mg/dL (30-150); eGFR > 60 See Note
--- NOTE | 2025-06-24 08:21 | ESPR_ITS ---
<Statement entered by Cyn No MD - 06/24/25 18:02> is a 44-year-old male with past medical history significant for alcohol use/withdrawal seizures, cirrhosis, gastric and esophageal varices who presented to the ED yesterday with both melena and hematochezia admitted for further management of GI bleed and acute blood loss anemia. Patient is currently on IV ceftriaxone, octreotide drip, Protonix IV twice daily. Patient is pending GI evaluation for possible EGD. Will continue to monitor with daily CBC, and transfuse if hemoglobin is below 7. Patient is also on CIWA protocol with thiamine and folate supplementation. Patient seen and examined at bedside. No acute overnight events reported. I discussed with and supervised the improvement intern physician who took care of this patient. I personally saw and examined the patient and discussed the assessment and plan with the entire medicine team, including my attending Dr. Child, I agree with most of the assessment and plan as documented below Cyn No M.D. PGY-3 Disclaimer: Despite multiple revisions, due to the dictation software being used, the document bellow may not be free of grammatical errors including phonetic/typographic errors. However, this does not deter from our commitment to providing health care in the patient's best interest in mind. Documentation for date of: 06/24/25 Subjective Subjective Interval history: Patient evaluated at bedside. Reports epigastric pain, no further episodes of melena since hospitalization. Last drink yesterday before coming to the hospital. Several episodes of melena over the past 2 days, unsure how many times. Denies recent hematochezia or hematemesis. Pt has a history of EtoH- withdrawal seizures. On CIWA protocol. Pending EGD with Dr. Perla today. Patient is homeless and stays at a snf at night. During the day nurse reported that patient had an episode of small-volume hemoptysis. CXR and CT cest w/o contrast negative for lesions concerning for TB or cocci. This episode most likely secondary to hematemesis secondary to upper GI bleed. Exam Vital Signs Temp Pulse Resp BP Pulse Ox O2 Del Method O2 Flow Rate 97.1 F 87 20 123/83 99 Nasal Cannula 3 06/24/25 05:14 06/24/25 05:14 06/24/25 05:14 06/24/25 05:14 06/24/25 05:14 06/24/25 05:14 06/24/25 05:14 Narrative Exam General: No acute distress, well nourished Eye: PERRL, EOMI, normal conjunctiva, no scleral icterus HENT: Normocephalic, atraumatic, normal hearing, moist oral mucosa Neck: Supple, non-tender, no JVD, no lymphadenopathy Lungs: Clear to auscultation bilaterally, non-labored respirations, symmetric chest rise, no use of accessory muscles Heart: Normal S1 and S2, no S3 or S4 appreciated. Normal rate and regular rhythm, no murmurs, rubs gallops, or edema. Peripheral pulses intact bilaterally, capillary refill brisk distally Abdomen: Soft, non-distended, TTP of epigastric region Musculoskeletal: Normal range of motion and strength, no tenderness or swelling Skin: Skin is warm, dry, no rashes or lesions. Neurologic: Alert, awake and oriented x3. CN II-XII grossly intact. No focal neuro deficits. No signs of meningeal irritation noted. Psychiatric: Cooperative, appropriate mood and affect Objective Labs 06/25/25 05:28 06/25/25 05:28 Labs: Laboratory Results - last 24 hr 06/23/25 06/23/25 06/23/25 19:40 21:24 21:30 WBC 4.7 RBC 2.74 L Hgb 7.4 L Hct 23.9 L MCV 87 MCH 27.0 MCHC 31.0 RDW Std Deviation 59.4 H Plt Count 32 L Neut % (Auto) 63 Lymph % (Auto) 21 [place] % (Auto) 8 Eos % (Auto) 7 Baso % (Auto) 1 Neut # (Auto) 3.0 Lymph # (Auto) 1.0 [place] # (Auto) 0.4 Eos # (Auto) 0.3 Baso # (Auto) 0.1 Immature Gran # (Auto) 0.01 H Absolute Nucleated RBC 0.00 Immature Gran % 0 Nucleated RBC % 0 PT INR APTT Sodium 143 Potassium 3.5 Chloride 107 Carbon Dioxide 24.3 Anion Gap 12 BUN < 5 L Creatinine 0.6 Estim Creat Clear Calc 150.5 eGFR > 60 BUN/Creatinine Ratio 8 L Glucose 103 Calculated Osmolality 282 Calcium 8.0 L Corrected Calcium 8.6 Phosphorus Magnesium Total Bilirubin 2.0 H AST 83 H ALT 9 L Alkaline Phosphatase 252 H Troponin I 0.020 Total Protein 6.8 Albumin 3.2 L Globulin 3.6 H Albumin/Globulin Ratio 0.9 L Triglycerides Cholesterol LDL Cholesterol, Calc HDL Cholesterol Cholesterol/HDL Ratio Lipase 31 Ur Collection Type Voided Urine Color Yellow Urine Clarity Clear Urine pH 6.5 Ur Specific [place] 1.009 Urine Protein Negative Urine Glucose (UA) Negative Urine Ketones Negative Urine Blood Negative Urine Nitrite Negative Urine Bilirubin Negative Urine Urobilinogen (Auto) 3.0 Ur Leukocyte Esterase Negative Urine RBC 1 Urine WBC < 1 Ur Squamous Epith Cells 0 Amorphous Crystals Present A Urine Bacteria Rare Ur Culture Indicated? Not Indicated Stool Occult Blood Positive A Ethyl Alcohol 342.0 H Misc Test Result Platelets confirmed Blood Type O Positive Antibody Screen NEGATIVE Crossmatch See Detail Blood Bank Wristband ID Yes 06/24/25 04:15 WBC 3.3 L RBC 3.25 L Hgb 9.0 L D Hct 28.6 L MCV 88 MCH 27.7 MCHC 31.5 RDW Std Deviation 58.8 H Plt Count 22 L* D Neut % (Auto) 63 Lymph % (Auto) 20 [place] % (Auto) 9 Eos % (Auto) 7 Baso % (Auto) 1 Neut # (Auto) 2.1 Lymph # (Auto) 0.7 L [place] # (Auto) 0.3 Eos # (Auto) 0.2 Baso # (Auto) 0.0 Immature Gran # (Auto) 0.01 H Absolute Nucleated RBC 0.00 Immature Gran % 0 Nucleated RBC % 0 PT 15.6 H INR 1.5 H APTT 34.5 Sodium 145 Potassium 3.8 Chloride 107 Carbon Dioxide 24.6 Anion Gap 13 BUN < 5 L Creatinine 0.5 L Estim Creat Clear Calc 180.6 eGFR > 60 BUN/Creatinine Ratio 10 L Glucose 86 Calculated Osmolality 284 Calcium 7.9 L Corrected Calcium 8.8 Phosphorus 4.9 Magnesium 1.3 L Total Bilirubin 2.1 H AST 89 H ALT 10 Alkaline Phosphatase 229 H D Troponin I Total Protein 6.5 Albumin 2.9 L Globulin 3.6 H Albumin/Globulin Ratio 0.8 L Triglycerides 111 Cholesterol 146 LDL Cholesterol, Calc 90 HDL Cholesterol 34 L Cholesterol/HDL Ratio 4.3 Lipase Ur Collection Type Urine Color Urine Clarity Urine pH Ur Specific [place] Urine Protein Urine Glucose (UA) Urine Ketones Urine Blood Urine Nitrite Urine Bilirubin Urine Urobilinogen (Auto) Ur Leukocyte Esterase Urine RBC Urine WBC Ur Squamous Epith Cells Amorphous Crystals Urine Bacteria Ur Culture Indicated? Stool Occult Blood Ethyl Alcohol Misc Test Result Platelets confirmed Blood Type Antibody Screen Crossmatch Blood Bank Wristband ID Quality Measures Quality Measures VTE prophylaxis Assessment & Plan Assessment Current Active Medications: Generic Name Dose Route Start Last Admin Trade Name Freq PRN Reason Stop Dose Admin Acetaminophen 650 mg 06/23/25 22:33 Acetaminophen 325 Mg Tablet PO 07/23/25 22:32 Q6H PRN Fever >100.4 or pain 1-3 Hydrocodone Bitart/Acetaminophen 1 tab 06/23/25 22:33 Hydrocodone/Apap 5/325 Tablet PO 06/28/25 22:32 Q4HR PRN PAIN SCALE 4-10(Mod-Sev Diazepam 2.5 mg 06/23/25 22:38 06/24/25 05:09 Diazepam Inj 5 Mg/Ml Vial 2 Ml IVP 06/28/25 22:37 2.5 mg Q2HR PRN Administration CIWA SCORE 8-13 Diazepam 5 mg 06/23/25 22:38 Diazepam Inj 5 Mg/Ml Vial 2 Ml IVP 06/28/25 22:37 Q2HR PRN CIWA SCORE 14-19 Diazepam 10 mg 06/23/25 22:38 Diazepam Inj 5 Mg/Ml Vial 2 Ml IVP 06/28/25 22:37 Q2HR PRN CIWA SCORE 20-25 Folic Acid 1 mg 06/24/25 09:00 Folic Acid 1 Mg Tablet PO 07/24/25 08:59 QDAY BRANDI Octreotide Acetate 1,000 mcg/ 102 mls @ 5.1 mls/hr 06/23/25 19:15 06/23/25 19:57 Sodium Chloride IV 06/24/25 15:14 50 mcg/hr .Q20H BRANDI 5.1 mls/hr Administration Protocol 50 MCG/HR Sodium Chloride 1,000 mls @ 75 mls/hr 06/23/25 22:45 06/23/25 23:05 Ns IV 06/25/25 01:24 75 mls/hr .[id number] BRANDI Administration Octreotide Acetate 1,000 mcg/ 102 mls @ 5.1 mls/hr 06/24/25 15:15 Sodium Chloride IV 07/24/25 15:14 .Q20H BRANDI Protocol 50 MCG/HR Ceftriaxone Sodium/Dextrose 2 gm in 50 mls @ 100 mls/hr 06/24/25 21:00 Rocephin/D5w 2gm IV 07/01/25 20:59 QDAY@2100 BRANDI Ondansetron HCl 4 mg 06/23/25 22:33 06/24/25 05:05 Ondansetron Inj 2 Mg/Ml Inj 2 Ml IVP 07/23/25 22:32 4 mg Q6H PRN Administration NAUSEA OR VOMITING Protocol Pantoprazole Sodium 40 mg 06/24/25 09:00 Pantoprazole Inj 40 Mg Vial IVP 07/24/25 08:59 Q12HR BRANDI Thiamine HCl 100 mg 06/24/25 09:00 Thiamine 100 Mg Tablet PO 07/24/25 08:59 QDAY BRANDI Plan Mr. Wells is a 44 y/o male with PMH of EtOH misuse, EtOH withdrawal seizures,, cirrhosis, gastric and esophageal varices, splenomegaly, and frequent anemic episodes who presented to the ED 06/23 with anemia hgb 6.7 per outpatient PCP and melena x 2 days, admitted for upper GI bleed and anemia. #Upper GI bleed #Acute normocytic normochromic anemia #Pancytopenia #EtOH induced cirrhosis #Hx bleeding esophageal varices Hx of bleeding esophageal varices, frequent anemia last transfused 2U pRBC 06/20/25 Initially presented with Hgb 6.7 per outpatient PCP, melena x2 days. FOBT positive Hgb on admission 7.4 --> 1U pRBC --> hgb 9 Has signs of end-stage liver disease including low albumin, pancytopenia, elevated INR. EtOH on admission 342. Plan: - Consulted GI (Dr. Perla), appreciate recs - N.p.o. after midnight pending EGD with Dr. Perla 06/25 - Ceftriaxone 1 g IV daily (started 06/23) - Octreotide drip - Protonix 40 mg IV BID - CTM with daily CBC, transfuse as needed to maintain hgb > 7 - GI consulted, appreciate recommendations #EtOH misuse disorder Patient reports frequent alcohol use, approximately 75 ounces of beer daily. Last drink was just prior to admission on 06/23. Alcohol level on admission 342. Patient appears intoxicated at time of admission, now resolved. Plan: - [facility] protocol - Daily thiamine and folate supplementation - Spine Surgeon patient regarding alcohol abuse. 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 Bladder wall thickening seen on previous imaging, appears unchanged. C/F cystitis vs bladder cancer. No hematuria on urinalysis. Plan: - Outpatient follow-up #Unstable housing Patient is homeless and stays at snf at night Plan: - F/U with social work coordinator Checklist Dispo: Pending EGD 06/25 Diet: Clear liquids today, NPO after midnight Bowel Reg: none VTE ppx: SCDs GI ppx: Protonix 40 mg IV BID Pain mgmt: [place] 5 mg q4h PO Code status: Full Plan discussed with Dr. Rosa No and Dr. Mateusz Cruz MD PGY1 Attending Provider Attestation/Addendum Anai Landers DO, attest that I was physically present for the pond portions of the service and evaluated the patient with the resident and I reviewed and discussed the case with the resident and agree with the resident's findings and plans of care as documented above Patient seen and evaluated this AM. Patient states he drinks 1-3 large bottles of beer daily. His last drink was yesterday. Patient states he noted to have both black and BRBPR. He also endorses some epigastric pain that began yesterday. Patient has had multiple admissions in the past for alcohol withdrawal and GI bleed. He is tremulous and endorses headache at this time, but denies any auditory, visual or tactile hallucinations. he denies any anxiety or agitation. He remains on octreotide and protonix drip. Will f/u with GI and egd results. Will monitor H/H closely
[2025-06-24] MEDS: FOLIC ACID 1 MG TABLET PO (08:25)
[2025-06-24] MEDS: THIAMINE 100 MG TABLET PO (08:26)
--- NOTE | 2025-06-24 08:59 | PC.SS ---
Patient Jose Wells is a 44 Year old male admitted for Anemia Melena. SS met with patient at bedside to discuss discharge plan and verify demographic information. Patient reports he stays at the [facility] in [place]. prior to admission patient did not utilize any source of DME to assist with ambulation. Patient is able to complete all ADL's independently. Surrogate decision maker is his friend, Amparo Pennington, [phone]. Choice of pharmacy is [facility]. PCP is Cezar Adams. SS inquired about ETOH resources, patient refused resources, he reports he drinks everyday. At time of discharge patient will return back to the [facility]. SS will need to provide transportation. Discharge plan: [facility] in [place] Next of kin, Friend, Amparo Pennington PCP:Cezar Adams
[2025-06-24] MEDS: Magnesium Sulfate 2 GM Ivpb 2 GM/50 ML BAG IV (09:37)
[2025-06-24] MEDS: OCTREOTIDE ACET INJ 1,000 MCG in SODIUM CHLORIDE 0.9% 100 ML 5.1 MCG IV (13:14)
--- NOTE | 2025-06-24 14:05 | XR_ITS ---
Examination: CT chest, without intravenous contrast. Sagittal and coronal 2-D reconstructions. Exam date and time: June 24, 2025 1431 hours Comparison March 19, 2025 INDICATIONS: Onset chest pain today CTDI:vol (mGy) 11.2 DLP: (mGycm) 452 Technique: Multiple 3.0 mm axial sections of the chest to been obtained. Bone and lung density settings are obtained. Sagittal and coronal 2-D reconstructions have been obtained. Low dose protocols were performed. One or more of the following dose reduction techniques were used; automated exposure control, adjustment of the mA and/or KV according to patient size, use of iterative reconstruction technique. Findings: No thoracic aortic aneurysm dilatation Pulmonary artery segments do not show significant enlargement No paratracheal tracheobronchial or bronchopulmonary adenopathy Again noted pulmonary nodule left lower lobe, currently measuring 10 mm compared to 12 mm on the prior study No pneumonia or pulmonary edema Cirrhosis, liver irregular contour with prominent splenomegaly Gallstones No hydronephrosis IMPRESSION: No mediastinal lymphadenopathy No pneumonia identified No radiographic findings of tuberculosis
--- NOTE | 2025-06-24 14:09 | PC.SS ---
SS follow up note; GI Work up pending, patient will [facility] when medically cleared.
--- NOTE | 2025-06-24 15:42 | PD.IMCONS ---
HPI Data of Consult Requesting Physician: Robin Hester MD Primary Care Provider: Cezar Adams MD Consult Narrative Reason for consult: FOBT positive posthemorrhagic anemia requiring blood transfusion History of present illness: 43 years old male evaluated at the request of the ER physician litigation legal assistant Patient was in the ER couple days ago requiring 2 units of PRBC with a hemoglobin of 6.5 g He went to see his private primary care physician and was found to be low hemoglobin hematocrit grossly Hemoccult positive sent to the ER and subsequently got admitted Admitted hemoglobin hematocrit 7.4 and 23.9 and patient has been given 2 units of blood current hemoglobin hematocrit 9.6 and 28.6 with a platelet count of 22,000 and pro time INR at 1.5 Patient did have a presentation of hematemesis on 05/11/2025 underwent upper endoscopy showing esophageal varices requiring band ligation in total 2 bands were put in Patient continues to drink Also has some hemoptysis as well as low-grade fever and has been put in isolation and worked up at the moment cc:: cc: Robin Hester MD Review of Systems Review of Systems Systems Reviewed: All systems reviewed, normal except as documented Past Medical History Surgical History OTHER SURGICAL HX: As in the history of present illness Meds Home Medications and Allergies Allergies Allergy/AdvReac Type Severity Reaction Status Date / Time No Known Allergies Allergy Verified 06/19/25 23:45 Exam Vital Signs Temp Pulse Resp BP Pulse Ox O2 Del Method O2 Flow Rate 97.8 F 86 18 123/81 95 Room Air 2 06/24/25 12:00 06/24/25 12:00 06/24/25 12:00 06/24/25 12:00 06/24/25 12:00 06/24/25 12:00 06/24/25 08:00 Constitutional Comments: Chronically ill-appearing Routine Respiratory Exam Comments: Normal to auscultation Routine Abdominal Exam Comments: Soft nontender Results Labs 06/24/25 04:15 06/24/25 04:15 Labs: Short CBC 06/23/25 06/24/25 Range/Units 19:40 04:15 WBC 4.7 3.3 L (3.8-10.6) Thou/mm3 Hgb 7.4 L 9.0 L D (13.5-16.0) g/dL Hct 23.9 L 28.6 L (41.0-53.0) % Plt Count 32 L 22 L* D (140-440) Thou/mm3 BMP 06/23/25 06/24/25 19:40 04:15 Sodium 143 145 Potassium 3.5 3.8 Chloride 107 107 Carbon Dioxide 24.3 24.6 BUN < 5 L < 5 L Creatinine 0.6 0.5 L Glucose 103 86 Calcium 8.0 L 7.9 L Cardiac Enzymes 06/23/25 Range/Units 19:40 Troponin I 0.020 (0.0-0.045) ng/mL Liver Function 06/23/25 06/24/25 Range/Units 19:40 04:15 Total Bilirubin 2.0 H 2.1 H (0.3-1.2) mg/dL AST 83 H 89 H (0-34) U/L ALT 9 L 10 (10-49) U/L Alkaline Phosphatase 252 H 229 H D (46-116) U/L Albumin 3.2 L 2.9 L (3.5-5.0) gm/dL Urine 06/23/25 Range/Units 21:24 Urine Color Yellow (Lt Yel-Yel) Urine Clarity Clear (Clear/Hazy) Urine pH 6.5 (5.0-7.0) Ur Specific [place] 1.009 (1.001-1.035) Urine Protein Negative (Neg - Trace) Urine Glucose (UA) Negative (Negative) Assessment and Plan Additional Assessment & Plan Additional Plan: # Posthemorrhagic anemia grossly Hemoccult positive stool with hematemesis questionable hemoptysis Plan Clear liquid diet today N.p.o. midnight tonight Consent obtained for fiberoptic esophagogastroduodenoscopy with possible biopsy possible therapeutic intervention under intravenous moderate sedation scheduled for tomorrow morning Serial CBC IV Protonix Octreotide infusion at 50 mcg/h Will follow the patient Thank you very much for the opportunity to participate in the care of this patient
[2025-06-24] MEDS: SODIUM CHLORIDE 0.9% 1000 ML 1,000 ML 75 ML IV (17:30)
[2025-06-24] MEDS: ACETAMINOPHEN 325 MG TABLET 650 MG PO (20:15)
[2025-06-24] MEDS: cefTRIAXone/D5w 1gm IV premix 1 GM/50 ML BAG IV (20:15)
[2025-06-24] MEDS: DIAZEPAM INJ 5 MG/ML VIAL 2 ML IVP (20:15)
[2025-06-25] VITALS (18 sets, daily range): BP systolic 113–128; BP diastolic 64–92; PULSE 72–130; RESP 12–20; TEMP 36.1–37.7; O2SAT 94–100
[2025-06-25 06:31] LABS: Basophils # (Auto) 0.0 Thou/mm3 (0.0-0.2); Basophils % (Auto) 1 % (0-2.5); Eosinophils # (Auto) 0.2 Thou/mm3 (0.0-0.5); Eosinophils % (Auto) 7 % (0-10); Hematocrit 26.7 % (41.0-53.0); Immature Granulocytes Auto 0.01 Thou/mm3 (0.00-0.00); Lymphocytes # (Auto) 0.4 Thou/mm3 (1.0-4.8); Lymphocytes % (Auto) 12 % (10-50); Mean Corpuscular HGB Conc 32.6 g/dl (31.0-37.0); Mean Corpuscular Hemoglobin 28.4 pg (25.0-35.0); Mean Corpuscular Volume 87 fL (80-100); Monocytes # (Auto) 0.3 Thou/mm3 (0.0-0.8); Monocytes % (Auto) 10 % (0-12); Neutrophils # (Auto) 2.1 Thou/mm3 (1.8-7.7); Neutrophils % (Auto) 70 % (37-80); Nucleated Red Blood Cell # 0.00 Thou/mm3 (0.00-0.00); Nucleated Red Blood Cell % 0 /100 WBC (0); RDW Standard Deviation 56.8 fL (35.1-43.9); Red Blood Count 3.06 Miln/mm3 (4.50-5.90); White Blood Count 3.1 Thou/mm3 (3.8-10.6)
[2025-06-25 06:35] LABS: Hemoglobin 8.7 g/dL (13.5-16.0); Platelet Count 22 Thou/mm3 (140-440)
[2025-06-25 06:36] LABS: Slide Review Platelets confirmed
[2025-06-25 06:58] LABS: Alanine Aminotransferase 8 U/L (10-49); Albumin, Serum 2.9 gm/dL (3.5-5.0); Albumin/Globulin Ratio 0.9 (1.2-2.2); Alkaline Phosphatase 201 U/L (46-116); Anion Gap 10 (7-16); Aspartate Amino Transferase 67 U/L (0-34); BUN/Creatinine Ratio 8 Ratio (12-20); Bilirubin,Total 3.5 mg/dL (0.3-1.2); Blood Urea Nitrogen < 5 mg/dL (9-23); Calcium 8.2 mg/dL (8.3-10.6); Calcium (Corrected) 9.1 mg/dL (8.5-10.1); Carbon Dioxide 26.5 mMol/L (20.0-31.0); Chloride 102 mMol/L (98-107); Creatinine (Component) 0.6 mg/dL (0.6-1.3); Estimated Creatinine Clearance 149.7 mL/min (>60); Globulin 3.4 gm/dL (2.3-3.5); Glucose 111 mg/dL (74-106); Osmolality,Calculated 273 (275-295); Phosphorous 2.6 mg/dL (2.4-5.1); Potassium 3.4 mMol/L (3.4-5.1); Sodium 138 mMol/L (136-145); Total Protein 6.3 gm/dL (5.7-8.2); eGFR > 60 See Note
[2025-06-25 07:01] LABS: Magnesium 0.9 mg/dL (1.6-2.6)
--- NOTE | 2025-06-25 07:32 | PC.NURSE ---
Team A, Dr. Lima aware of magnesium level of 0.9. MD to place orders.
--- NOTE | 2025-06-25 08:18 | ESPR_ITS ---
<Statement entered by Clarence Hidalgo MD - 06/25/25 16:44> Senior Resident Attestation: I supervised/discussed management plan with chief of internal medicine physician Dr. Cruz, and was involved in the care of this patient. I personally saw and examined the patient and discussed the assessment and plan with the entire medicine team, including my attending. I agree with the assessment and plan as documented. Patient reported no new episodes of melena or hematemesis. Pending EGD with Dr. Perla gastroenterology. Hemoglobin is stable. Electrolytes were repleted. Patient's care was discussed with attending physician, Dr. Child. Clarence Hidalgo MD PGY-3. Documentation for date of: 06/25/25 Subjective Subjective Interval history: NAEO. VSS. Pending EGD with Dr. Perla today. Patient denies new symptoms. Reports that he was having melena and hematochezia 2 days prior to hospitalization. Denies more episodes of melena or hematochezia while in hospital. Denies hematemesis. Repleted magnesium with Mg IV 4 mg x2 today. Hgb 8.7 (9 yesterday). Exam Vital Signs Temp Pulse Resp BP Pulse Ox O2 Del Method O2 Flow Rate 97.5 F 84 16 113/77 98 Room Air 2 06/25/25 04:00 06/25/25 04:17 06/25/25 04:00 06/25/25 04:00 06/25/25 04:00 06/25/25 04:00 06/24/25 08:00 Narrative Exam General: No acute distress, well nourished Eye: PERRL, EOMI, normal conjunctiva, no scleral icterus HENT: Normocephalic, atraumatic, normal hearing, moist oral mucosa Neck: Supple, non-tender, no JVD, no lymphadenopathy Lungs: Clear to auscultation bilaterally, non-labored respirations, symmetric chest rise, no use of accessory muscles Heart: Normal S1 and S2, no S3 or S4 appreciated. Normal rate and regular rhythm, no murmurs, rubs gallops, or edema. Peripheral pulses intact bilaterally, capillary refill brisk distally Abdomen: Soft, distended, TTP of epigastric region Musculoskeletal: Normal range of motion and strength, no tenderness or swelling Skin: Skin is warm, dry, no rashes or lesions. Neurologic: Alert, awake and oriented x3. CN II-XII grossly intact. No focal neuro deficits. No signs of meningeal irritation noted. Psychiatric: Cooperative, appropriate mood and affect Objective Labs 06/25/25 05:28 06/25/25 05:28 Labs: Laboratory Results - last 24 hr 06/25/25 05:28 WBC 3.1 L RBC 3.06 L Hgb 8.7 L Hct 26.7 L MCV 87 MCH 28.4 MCHC 32.6 RDW Std Deviation 56.8 H Plt Count 22 L* Neut % (Auto) 70 Lymph % (Auto) 12 [place] % (Auto) 10 Eos % (Auto) 7 Baso % (Auto) 1 Neut # (Auto) 2.1 Lymph # (Auto) 0.4 L [place] # (Auto) 0.3 Eos # (Auto) 0.2 Baso # (Auto) 0.0 Immature Gran # (Auto) 0.01 H Absolute Nucleated RBC 0.00 Immature Gran % 0 Nucleated RBC % 0 Sodium 138 Potassium 3.4 Chloride 102 Carbon Dioxide 26.5 Anion Gap 10 BUN < 5 L Creatinine 0.6 Estim Creat Clear Calc 149.7 eGFR > 60 BUN/Creatinine Ratio 8 L Glucose 111 H Calculated Osmolality 273 L Calcium 8.2 L Corrected Calcium 9.1 Phosphorus 2.6 Magnesium 0.9 L* Total Bilirubin 3.5 H D AST 67 H ALT 8 L Alkaline Phosphatase 201 H D Total Protein 6.3 Albumin 2.9 L Globulin 3.4 Albumin/Globulin Ratio 0.9 L Misc Test Result Platelets confirmed Quality Measures Quality Measures VTE prophylaxis Assessment & Plan Assessment Current Active Medications: Generic Name Dose Route Start Last Admin Trade Name Emy PRN Reason Stop Dose Admin Acetaminophen 650 mg 06/23/25 22:33 06/24/25 20:15 Acetaminophen 325 Mg Tablet PO 07/23/25 22:32 650 mg Q6H PRN Administration Fever >100.4 or pain 1-3 Hydrocodone Bitart/Acetaminophen 1 tab 06/23/25 22:33 Hydrocodone/Apap 5/325 Tablet PO 06/28/25 22:32 Q4HR PRN PAIN SCALE 4-10(Mod-Sev Diazepam 2.5 mg 06/23/25 22:38 06/24/25 09:46 Diazepam Inj 5 Mg/Ml Vial 2 Ml IVP 06/28/25 22:37 2.5 mg Q2HR PRN Administration CIWA SCORE 8-13 Diazepam 5 mg 06/23/25 22:38 06/24/25 20:15 Diazepam Inj 5 Mg/Ml Vial 2 Ml IVP 06/28/25 22:37 5 mg Q2HR PRN Administration CIWA SCORE 14-19 Diazepam 10 mg 06/23/25 22:38 Diazepam Inj 5 Mg/Ml Vial 2 Ml IVP 06/28/25 22:37 Q2HR PRN CIWA SCORE 20-25 Folic Acid 1 mg 06/24/25 09:00 06/24/25 08:25 Folic Acid 1 Mg Tablet PO 07/24/25 08:59 1 mg QDAY BRANDI Administration Octreotide Acetate 1,000 mcg/ 102 mls @ 5.1 mls/hr 06/24/25 15:15 06/24/25 13:14 Sodium Chloride IV 07/24/25 15:14 50 mcg/hr .Q20H BRANDI 5.1 mls/hr Administration Protocol 50 MCG/HR Ceftriaxone Sodium/Dextrose 1 gm in 50 mls @ 100 mls/hr 06/24/25 21:00 06/24/25 20:15 Rocephin/D5w 1gm Iv Premix IV 07/01/25 20:59 100 mls/hr HS BRANDI Administration Potassium Chloride 10 meq in 100 mls @ 100 mls/hr 06/25/25 08:17 Kcl Ivpb IV 06/25/25 09:16 X1 ONE Magnesium Sulfate 4 gm in 50 mls @ 12.5 mls/hr 06/25/25 08:17 Magnesium Sulfate Ivpb IV 06/25/25 12:16 X1 ONE Ondansetron HCl 4 mg 06/23/25 22:33 06/24/25 20:14 Ondansetron Inj 2 Mg/Ml Inj 2 Ml IVP 07/23/25 22:32 4 mg Q6H PRN Administration NAUSEA OR VOMITING Protocol Pantoprazole Sodium 40 mg 06/24/25 09:00 06/24/25 20:14 Pantoprazole Inj 40 Mg Vial IVP 07/24/25 08:59 40 mg Q12HR BRANDI Administration Thiamine HCl 100 mg 06/24/25 09:00 06/24/25 08:26 Thiamine 100 Mg Tablet PO 07/24/25 08:59 100 mg QDAY BRANDI Administration Plan Mr. Wells is a 44 y/o male with PMH of EtOH misuse, EtOH withdrawal seizures,, cirrhosis, gastric and esophageal varices, splenomegaly, and frequent anemic episodes who presented to the ED 06/23 with anemia hgb 6.7 per outpatient PCP and melena x 2 days, admitted for upper GI bleed and anemia. #Upper GI bleed #Acute normocytic normochromic anemia #Pancytopenia #EtOH induced cirrhosis #Hx bleeding esophageal varices Hx of bleeding esophageal varices, frequent anemia last transfused 2U pRBC 06/20/25 Initially presented with Hgb 6.7 per outpatient PCP, melena x2 days. FOBT positive Hgb on admission 7.4 --> 1U pRBC --> hgb 9 Has signs of end-stage liver disease including low albumin, pancytopenia, elevated INR. EtOH on admission 342. Plan: - Consulted GI (Dr. Perla), appreciate recs - EGD with Dr. Perla 06/25 - Ceftriaxone 1 g IV daily (started 06/23) - Octreotide drip - Protonix 40 mg IV BID - CTM with daily CBC, transfuse as needed to maintain hgb > 7 - GI consulted, appreciate recommendations #EtOH misuse disorder Patient reports frequent alcohol use, approximately 75 ounces of beer daily. Last drink was just prior to admission on 06/23. Alcohol level on admission 342. Patient appears intoxicated at time of admission, now resolved. 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 Bladder wall thickening seen on previous imaging, appears unchanged. C/F cystitis vs bladder cancer. No hematuria on urinalysis. Plan: - Outpatient follow-up #Unstable housing Patient is homeless and stays at alf at night Plan: - F/U with social media marketing manager Checklist Dispo: Pending EGD 06/25 Diet: NPO Bowel Reg: none VTE ppx: SCDs GI ppx: Protonix 40 mg IV BID Pain mgmt: [place] 5 mg q4h PO Code status: Full Plan discussed with Dr. Hidalgo and Dr. Mateusz Cruz MD PGY1 Attending Provider Attestation/Addendum I, Anai Child DO, attest that I was physically present for the pond portions of the service and evaluated the patient with the resident and I reviewed and discussed the case with the resident and agree with the resident's findings and plans of care as documented above Lenny seen and evaluated this AM. He continues to have mild epigastric pain. CIWA score of 3 at this time. He denies any auditory, tactile or visual hallucinations. He also denies headache. Pending EGD today. He is otherwise hemodynamically stable. Continue with current management. F/u with EGD results. Monitor for alcohol withdrawal
[2025-06-25] MEDS: Magnesium Sulfate 4 GM Ivpb 4 GM/50 ML BAG IV ×2 (08:38→14:48)
[2025-06-25] MEDS: POTASSIUM CHL 10 mEq IVPB 10 MEQ/100 ML BAG 100 MEQ IV (08:38)
[2025-06-25] MEDS: OCTREOTIDE ACET INJ 1,000 MCG in SODIUM CHLORIDE 0.9% 100 ML 5.1 MCG IV (12:21)
[2025-06-25 12:48] LABS: Magnesium 1.4 mg/dL (1.6-2.6)
--- NOTE | 2025-06-25 13:29 | PC.SS ---
Addendum entered by Rea Torres 06/25/25 14:20: SS follow up note: Patient is pending EGD with Dr. Perla. [facility]. Original Note: follow up note; [facility] protocol, EGD pending. Patient will [facility] to [facility] when medically cleared.
--- NOTE | 2025-06-25 13:38 | CHAP ---
Patient was visited by the Spiritual Care Volunteer who prayed for them. (Volunteer was in the hospital from 11:30-12:38).
--- NOTE | 2025-06-25 19:59 | PC.NURSE ---
pt left the room for endoscopy. Pt A&O x4, VS normal for pt, respiration even and unlabored. Telebox left in pt's room.
--- NOTE | 2025-06-25 20:43 | SUR.PHASEI ---
received pt and report from CHANTELL Miller. HR melba, Dr Perla made aware. no orders received at this time. all other vss. pt denies any chest pain or dizziness. IV x2 intact -no s/s of infiltration or redness noted to site.
--- NOTE | 2025-06-25 21:23 | SUR.PHASEI ---
pt's hr 103, other vss. pt awake, A&ox4. no distress noted. report given to CHANTELL Victor
[2025-06-25] MEDS: cefTRIAXone/D5w 1gm IV premix 1 GM/50 ML BAG IV (22:31)
[2025-06-25] MEDS: ONDANSETRON INJ 2 MG/ML INJ 2 ML 4 MG IVP (22:42)
[2025-06-26] VITALS (8 sets, daily range): BP systolic 93–111; BP diastolic 63–79; PULSE 79–102; RESP 16–19; TEMP 36.3–37.1; O2SAT 95–98; BMI 27.5; BMI 27.6
[2025-06-26 06:32] LABS: Basophils # (Auto) 0.0 Thou/mm3 (0.0-0.2); Basophils % (Auto) 1 % (0-2.5); Eosinophils # (Auto) 0.2 Thou/mm3 (0.0-0.5); Eosinophils % (Auto) 5 % (0-10); Hematocrit 25.7 % (41.0-53.0); Immature Granulocytes Auto 0.01 Thou/mm3 (0.00-0.00); Lymphocytes # (Auto) 0.6 Thou/mm3 (1.0-4.8); Lymphocytes % (Auto) 14 % (10-50); Mean Corpuscular HGB Conc 32.7 g/dl (31.0-37.0); Mean Corpuscular Hemoglobin 28.5 pg (25.0-35.0); Mean Corpuscular Volume 87 fL (80-100); Monocytes # (Auto) 0.4 Thou/mm3 (0.0-0.8); Monocytes % (Auto) 9 % (0-12); Neutrophils # (Auto) 2.9 Thou/mm3 (1.8-7.7); Neutrophils % (Auto) 71 % (37-80); Nucleated Red Blood Cell # 0.00 Thou/mm3 (0.00-0.00); Nucleated Red Blood Cell % 0 /100 WBC (0); RDW Standard Deviation 55.4 fL (35.1-43.9); Red Blood Count 2.95 Miln/mm3 (4.50-5.90); White Blood Count 4.1 Thou/mm3 (3.8-10.6)
[2025-06-26 06:37] LABS: Hemoglobin 8.4 g/dL (13.5-16.0); Platelet Count 23 Thou/mm3 (140-440)
[2025-06-26 07:06] LABS: Alanine Aminotransferase 7 U/L (10-49); Albumin, Serum 2.9 gm/dL (3.5-5.0); Albumin/Globulin Ratio 0.8 (1.2-2.2); Alkaline Phosphatase 182 U/L (46-116); Anion Gap 11 (7-16); Aspartate Amino Transferase 46 U/L (0-34); BUN/Creatinine Ratio 8 Ratio (12-20); Bilirubin,Total 3.0 mg/dL (0.3-1.2); Blood Urea Nitrogen < 5 mg/dL (9-23); Calcium 7.8 mg/dL (8.3-10.6); Calcium (Corrected) 8.7 mg/dL (8.5-10.1); Carbon Dioxide 23.6 mMol/L (20.0-31.0); Chloride 101 mMol/L (98-107); Creatinine (Component) 0.6 mg/dL (0.6-1.3); Estimated Creatinine Clearance 150.3 mL/min (>60); Globulin 3.8 gm/dL (2.3-3.5); Glucose 80 mg/dL (74-106); Magnesium 1.6 mg/dL (1.6-2.6); Osmolality,Calculated 268 (275-295); Phosphorous 1.9 mg/dL (2.4-5.1); Potassium 3.2 mMol/L (3.4-5.1); Sodium 136 mMol/L (136-145); Total Protein 6.7 gm/dL (5.7-8.2); eGFR > 60 See Note
[2025-06-26] MEDS: OCTREOTIDE ACET INJ 1,000 MCG in SODIUM CHLORIDE 0.9% 100 ML 5.1 MCG IV (09:05)
[2025-06-26] MEDS: Magnesium Sulfate 4 GM Ivpb 4 GM/50 ML BAG IV (09:05)
[2025-06-26] MEDS: FOLIC ACID 1 MG TABLET PO (09:06)
[2025-06-26] MEDS: THIAMINE 100 MG TABLET PO (09:06)
[2025-06-26] MEDS: NAPH,KPH MBDB 1 PACKET (1.5 GM) PO (09:07)
--- NOTE | 2025-06-26 09:48 | ESPR_ITS ---
<Statement entered by Dominguez Adams MD - 06/27/25 08:36> Patient was examined and case was reviewed with team including attending physician. Note reviewed, I agree with most of its contents and agree with the patient's care as documented by Dr. Warner Patient seen today at the bedside found awake, alert, orientedx3. No overnight events reported. Vital signs stable at this time. No active complaints at this time. Per gi reccs patient will continue 2 more days of octreotide drip due to finding on upper EGD which showed hypertensive portal gastropathy with mucosal oozing which is most likely the source of bleeding and anemia, however no varices bleeding varices found. Dominguez Adams MD PGY-2 Documentation for date of: 06/26/25 Subjective Subjective Interval history: 06/26/25: [place]. VSS. CIWA of zero overnight. Patient reports mild epigastric pain but denies any nausea or emesis. Patient states that he experienced tactile and visual hallucinations yesterday but is asymptomatic today. Exam Vital Signs Temp Pulse Resp BP Pulse Ox O2 Del Method O2 Flow Rate 97.6 F 80 18 107/79 95 Room Air 2 06/26/25 08:00 06/26/25 08:00 06/26/25 08:00 06/26/25 08:00 06/26/25 08:00 06/26/25 08:00 06/25/25 21:15 Narrative Exam General: No acute distress, well nourished Eye: PERRL, EOMI, normal conjunctiva, no scleral icterus HENT: Normocephalic, atraumatic, normal hearing, moist oral mucosa Neck: Supple, non-tender, no JVD, no lymphadenopathy Lungs: Clear to auscultation bilaterally, non-labored respirations, symmetric chest rise, no use of accessory muscles Heart: Normal S1 and S2, no S3 or S4 appreciated. Normal rate and regular rhythm, no murmurs, rubs gallops, or edema. Peripheral pulses intact bilaterally, capillary refill brisk distally Abdomen: Soft, distended, TTP of epigastric region Musculoskeletal: Normal range of motion and strength, no tenderness or swelling Skin: Skin is warm, dry, no rashes or lesions. Neurologic: Alert, awake and oriented x3. CN II-XII grossly intact. No focal neuro deficits. No signs of meningeal irritation noted. Psychiatric: Cooperative, appropriate mood and affect Objective Labs 06/27/25 05:43 06/27/25 05:43 Labs: Laboratory Results - last 24 hr 06/25/25 06/26/25 11:40 04:22 WBC 4.1 RBC 2.95 L Hgb 8.4 L Hct 25.7 L MCV 87 MCH 28.5 MCHC 32.7 RDW Std Deviation 55.4 H Plt Count 23 L* Neut % (Auto) 71 Lymph % (Auto) 14 [place] % (Auto) 9 Eos % (Auto) 5 Baso % (Auto) 1 Neut # (Auto) 2.9 Lymph # (Auto) 0.6 L [place] # (Auto) 0.4 Eos # (Auto) 0.2 Baso # (Auto) 0.0 Immature Gran # (Auto) 0.01 H Absolute Nucleated RBC 0.00 Immature Gran % 0 Nucleated RBC % 0 Sodium 136 Potassium 3.2 L Chloride 101 Carbon Dioxide 23.6 Anion Gap 11 BUN < 5 L Creatinine 0.6 Estim Creat Clear Calc 150.3 eGFR > 60 BUN/Creatinine Ratio 8 L Glucose 80 Calculated Osmolality 268 L Calcium 7.8 L Corrected Calcium 8.7 Phosphorus 1.9 L Magnesium 1.4 L 1.6 Total Bilirubin 3.0 H D AST 46 H ALT 7 L Alkaline Phosphatase 182 H Total Protein 6.7 Albumin 2.9 L Globulin 3.8 H Albumin/Globulin Ratio 0.8 L Quality Measures Quality Measures VTE prophylaxis Assessment & Plan Assessment Current Active Medications: Generic Name Dose Route Start Last Admin Trade Name Freq PRN Reason Stop Dose Admin Acetaminophen 650 mg 06/23/25 22:33 06/24/25 20:15 Acetaminophen 325 Mg Tablet PO 07/23/25 22:32 650 mg Q6H PRN Administration Fever >100.4 or pain 1-3 Hydrocodone Bitart/Acetaminophen 1 tab 06/23/25 22:33 Hydrocodone/Apap 5/325 Tablet PO 06/28/25 22:32 Q4HR PRN PAIN SCALE 4-10(Mod-Sev Diazepam 2.5 mg 06/23/25 22:38 06/24/25 09:46 Diazepam Inj 5 Mg/Ml Vial 2 Ml IVP 06/28/25 22:37 2.5 mg Q2HR PRN Administration CIWA SCORE 8-13 Diazepam 5 mg 06/23/25 22:38 06/24/25 20:15 Diazepam Inj 5 Mg/Ml Vial 2 Ml IVP 06/28/25 22:37 5 mg Q2HR PRN Administration CIWA SCORE 14-19 Diazepam 10 mg 06/23/25 22:38 Diazepam Inj 5 Mg/Ml Vial 2 Ml IVP 06/28/25 22:37 Q2HR PRN CIWA SCORE 20-25 Folic Acid 1 mg 06/24/25 09:00 06/26/25 09:06 Folic Acid 1 Mg Tablet PO 07/24/25 08:59 1 mg QDAY BRANDI Administration Octreotide Acetate 1,000 mcg/ 102 mls @ 5.1 mls/hr 06/24/25 15:15 06/26/25 09:05 Sodium Chloride IV 07/24/25 15:14 50 mcg/hr .Q20H BRANDI 5.1 mls/hr Administration Protocol 50 MCG/HR Ceftriaxone Sodium/Dextrose 1 gm in 50 mls @ 100 mls/hr 06/24/25 21:00 06/25/25 23:01 Rocephin/D5w 1gm Iv Premix IV 07/01/25 20:59 Infused HS BRANDI Infusion Magnesium Sulfate 4 gm in 50 mls @ 12.5 mls/hr 06/26/25 08:07 06/26/25 09:05 Magnesium Sulfate Ivpb IV 06/26/25 12:06 12.5 mls/hr X1 ONE Administration Ondansetron HCl 4 mg 06/23/25 22:33 06/25/25 22:42 Ondansetron Inj 2 Mg/Ml Inj 2 Ml IVP 07/23/25 22:32 4 mg Q6H PRN Administration NAUSEA OR VOMITING Protocol Pantoprazole Sodium 40 mg 06/24/25 09:00 06/26/25 09:05 Pantoprazole Inj 40 Mg Vial IVP 07/24/25 08:59 40 mg Q12HR BRANID Administration Thiamine HCl 100 mg 06/24/25 09:00 06/26/25 09:06 Thiamine 100 Mg Tablet PO 07/24/25 08:59 100 mg QDAY BRANDI Administration Plan Mr. Wells is a 44 y/o male with PMH of EtOH misuse, EtOH withdrawal seizures,, cirrhosis, gastric and esophageal varices, splenomegaly, and frequent anemic episodes who presented to the ED 06/23 with anemia hgb 6.7 per outpatient PCP and melena x 2 days, admitted for upper GI bleed and anemia. #Upper GI bleed #Acute normocytic normochromic anemia #Pancytopenia #EtOH induced cirrhosis #Hx bleeding esophageal varices Hx of bleeding esophageal varices, frequent anemia last transfused 2U pRBC 06/20/25 Initially presented with Hgb 6.7 per outpatient PCP, melena x2 days. FOBT positive Hgb on admission 7.4 --> 1U pRBC --> hgb 9 --> 06/26, 8.4 Has signs of end-stage liver disease including low albumin, pancytopenia, elevated INR. EtOH on admission 342. GI DrPan was consulted who performed EGD (06/25) which showed no varices but evidence of hypertensive portal gastropathy with mucosal oozing which is most likely the source of bleeding and anemia. Plt: Plan: - Continue Ceftriaxone 1 g IV daily (started 06/23) for SBP prophylaxis - Start carvedilol 3.125 with parameters (hold of SBP<100) - Octreotide drip for total of 5 days (Last day 06/28) - Protonix 40 mg IV BID - CTM with daily CBC, transfuse as needed to maintain hgb > 7 - Consider transfusing platelets if <20 #EtOH misuse disorder Patient reports frequent alcohol use, approximately 75 ounces of beer daily. Last drink was just prior to admission on 06/23. Alcohol level on admission 342. Patient appears intoxicated at time of admission, now resolved. 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 Bladder wall thickening seen on previous imaging, appears unchanged. C/F cystitis vs bladder cancer. No hematuria on urinalysis. Plan: - Outpatient follow-up #Unstable housing Patient is homeless and stays at halfway at night Plan: - F/U with healthcare social worker Checklist Dispo: Pending EGD 06/25 Diet: 2g sodium diet Bowel Reg: none VTE ppx: SCDs GI ppx: Protonix 40 mg IV BID Pain mgmt: [place] 5 mg q4h PO Code status: Full Plan discussed with Dr. Rivera and Dr. Mateusz Warner DO PGY1 Attending Provider Attestation/Addendum Anai Landers DO, attest that I was physically present for the pond portions of the service and evaluated the patient with the resident and I reviewed and discussed the case with the resident and agree with the resident's findings and plans of care as documented above Patient seen and eval this a.m. He states that he is feeling well. CIWA score of 1 as he is noted to have mild tremors. He denies any headache, visual, tactile or auditory hallucinations. Patient states that he did see some things last night, but that has resolved. Patient found to have Oozing of blood from the body of the stomach likely secondary to portal hypertension and portal gastropathy. Recommended for patient to maintain 2 g sodium diet and continue with octreotide drip until 12/29. H&H is otherwise stable.
[2025-06-26 10:58] LABS: Slide Review Platelets confirmed
--- NOTE | 2025-06-26 11:27 | CHAP ---
Patient was visited by the Spiritual Care Volunteer who prayed for them silently due to their sleeping. (Volunteer was in the hospital from 09:00-11:27)
--- NOTE | 2025-06-26 15:37 | PC.SS ---
Rounding: Octriotide drip will complete on 06/28, DC plan [facility]
--- NOTE | 2025-06-26 20:18 | PD.IMPROG ---
Documentation for date of: 06/26/25 Subjective Subjective Interval history: Patient evaluated hemoglobin hematocrit 8.4 and 25.7 On octreotide infusion because of the mucosal oozing of blood due to advanced portal hypertension Exam Vital Signs Temp Pulse Resp BP Pulse Ox O2 Del Method O2 Flow Rate 97.4 F 82 19 97/74 98 Room Air 2 06/26/25 16:00 06/26/25 17:59 06/26/25 16:00 06/26/25 17:59 06/26/25 16:00 06/26/25 08:00 06/25/25 21:15 Objective Labs 06/26/25 04:22 06/26/25 04:22 Labs: Laboratory Results - last 24 hr 06/26/25 04:22 WBC 4.1 RBC 2.95 L Hgb 8.4 L Hct 25.7 L MCV 87 MCH 28.5 MCHC 32.7 RDW Std Deviation 55.4 H Plt Count 23 L* Neut % (Auto) 71 Lymph % (Auto) 14 [place] % (Auto) 9 Eos % (Auto) 5 Baso % (Auto) 1 Neut # (Auto) 2.9 Lymph # (Auto) 0.6 L [place] # (Auto) 0.4 Eos # (Auto) 0.2 Baso # (Auto) 0.0 Immature Gran # (Auto) 0.01 H Absolute Nucleated RBC 0.00 Immature Gran % 0 Nucleated RBC % 0 Sodium 136 Potassium 3.2 L Chloride 101 Carbon Dioxide 23.6 Anion Gap 11 BUN < 5 L Creatinine 0.6 Estim Creat Clear Calc 150.3 eGFR > 60 BUN/Creatinine Ratio 8 L Glucose 80 Calculated Osmolality 268 L Calcium 7.8 L Corrected Calcium 8.7 Phosphorus 1.9 L Magnesium 1.6 Total Bilirubin 3.0 H D AST 46 H ALT 7 L Alkaline Phosphatase 182 H Total Protein 6.7 Albumin 2.9 L Globulin 3.8 H Albumin/Globulin Ratio 0.8 L Misc Test Result Platelets confirmed Impressions Impression: Mucosal oozing of blood due to advanced portal hypertension Plan Continue octreotide infusion Assessment & Plan A&P Narrative # Posthemorrhagic anemia grossly Hemoccult positive stool with hematemesis questionable hemoptysis Plan Clear liquid diet today N.p.o. midnight tonight Consent obtained for fiberoptic esophagogastroduodenoscopy with possible biopsy possible therapeutic intervention under intravenous moderate sedation scheduled for tomorrow morning Serial CBC IV Protonix Octreotide infusion at 50 mcg/h Will follow the patient Thank you very much for the opportunity to participate in the care of this patient Time Spent With Patient Time: Total time spent is greater than 50% in coordination of care (as documented) at patient's floor/unit and/or counseling patient:
[2025-06-26] MEDS: cefTRIAXone/D5w 1gm IV premix 1 GM/50 ML BAG IV (20:19)
[2025-06-27] VITALS (8 sets, daily range): BP systolic 95–116; BP diastolic 67–78; PULSE 69–90; RESP 18–20; TEMP 36.1–36.7; O2SAT 95–100; BMI 27.6
[2025-06-27 06:28] LABS: Basophils # (Auto) 0.0 Thou/mm3 (0.0-0.2); Basophils % (Auto) 1 % (0-2.5); Eosinophils # (Auto) 0.3 Thou/mm3 (0.0-0.5); Eosinophils % (Auto) 6 % (0-10); Hematocrit 28.5 % (41.0-53.0); Hemoglobin 9.0 g/dL (13.5-16.0); Immature Granulocytes Auto 0.02 Thou/mm3 (0.00-0.00); Lymphocytes # (Auto) 0.7 Thou/mm3 (1.0-4.8); Lymphocytes % (Auto) 16 % (10-50); Mean Corpuscular HGB Conc 31.6 g/dl (31.0-37.0); Mean Corpuscular Hemoglobin 27.9 pg (25.0-35.0); Mean Corpuscular Volume 88 fL (80-100); Monocytes # (Auto) 0.5 Thou/mm3 (0.0-0.8); Monocytes % (Auto) 10 % (0-12); Neutrophils # (Auto) 3.2 Thou/mm3 (1.8-7.7); Neutrophils % (Auto) 68 % (37-80); Nucleated Red Blood Cell # 0.00 Thou/mm3 (0.00-0.00); Nucleated Red Blood Cell % 0 /100 WBC (0); RDW Standard Deviation 56.6 fL (35.1-43.9); Red Blood Count 3.23 Miln/mm3 (4.50-5.90); White Blood Count 4.7 Thou/mm3 (3.8-10.6)
[2025-06-27 06:30] LABS: Platelet Count 26 Thou/mm3 (140-440)
[2025-06-27 06:49] LABS: Alanine Aminotransferase < 7 U/L (10-49); Albumin, Serum 3.0 gm/dL (3.5-5.0); Albumin/Globulin Ratio 0.8 (1.2-2.2); Alkaline Phosphatase 187 U/L (46-116); Anion Gap 10 (7-16); Aspartate Amino Transferase 47 U/L (0-34); BUN/Creatinine Ratio 8 Ratio (12-20); Bilirubin,Total 2.8 mg/dL (0.3-1.2); Blood Urea Nitrogen 5 mg/dL (9-23); Calcium 8.3 mg/dL (8.3-10.6); Calcium (Corrected) 9.1 mg/dL (8.5-10.1); Carbon Dioxide 24.5 mMol/L (20.0-31.0); Chloride 103 mMol/L (98-107); Creatinine (Component) 0.6 mg/dL (0.6-1.3); Estimated Creatinine Clearance 147.2 mL/min (>60); Globulin 4.0 gm/dL (2.3-3.5); Glucose 92 mg/dL (74-106); Magnesium 1.5 mg/dL (1.6-2.6); Osmolality,Calculated 271 (275-295); Phosphorous 3.1 mg/dL (2.4-5.1); Potassium 3.9 mMol/L (3.4-5.1); Sodium 137 mMol/L (136-145); Total Protein 7.0 gm/dL (5.7-8.2); eGFR > 60 See Note
[2025-06-27 07:48] LABS: Slide Review Platelets confirmed
--- NOTE | 2025-06-27 08:23 | ESPR_ITS ---
<Statement entered by Clarence Hidalgo MD - 06/27/25 16:08> Senior Resident Attestation: I supervised/discussed management plan with tax intern physician Dr. Cruz, and was involved in the care of this patient. I personally saw and examined the patient and discussed the assessment and plan with the entire medicine team, including my attending. I agree with the assessment and plan as documented. Patient's hemoglobin remained stable. Patient continue on octreotide drip as recommended per GI for 5 days. Anticipate discharge tomorrow. Patient's care was discussed with attending physician, Dr. Zepeda. Clarence Hidalgo MD PGY-3. Documentation for date of: 06/27/25 Subjective Subjective Interval history: NAEO. VSS. Hgb stable 9. Patient evaluated at bedside. Reports continued but stable epigastric pain. Denies new symptoms. Denies hematemesis, melena, or hematochezia while in hospital. Exam Vital Signs Temp Pulse Resp BP Pulse Ox O2 Del Method O2 Flow Rate 97.2 F 75 18 116/76 100 Room Air 2 06/27/25 04:00 06/27/25 04:00 06/27/25 04:00 06/27/25 04:00 06/27/25 04:00 06/27/25 04:00 06/25/25 21:15 Narrative Exam General: No acute distress, well nourished Eye: PERRL, EOMI, normal conjunctiva, no scleral icterus HENT: Normocephalic, atraumatic, normal hearing, moist oral mucosa Neck: Supple, non-tender, no JVD, no lymphadenopathy Lungs: Clear to auscultation bilaterally, non-labored respirations, symmetric chest rise, no use of accessory muscles Heart: Normal S1 and S2, no S3 or S4 appreciated. Normal rate and regular rhythm, no murmurs, rubs gallops, or edema. Peripheral pulses intact bilaterally, capillary refill brisk distally Abdomen: Soft, distended, TTP of epigastric region Musculoskeletal: Normal range of motion and strength, no tenderness or swelling Skin: Skin is warm, dry, no rashes or lesions. Neurologic: Alert, awake and oriented x3. CN II-XII grossly intact. No focal neuro deficits. No signs of meningeal irritation noted. Psychiatric: Cooperative, appropriate mood and affect Objective Labs 06/28/25 04:43 06/28/25 04:43 Labs: Laboratory Results - last 24 hr 06/26/25 06/27/25 04:22 05:43 WBC 4.7 RBC 3.23 L Hgb 9.0 L Hct 28.5 L MCV 88 MCH 27.9 MCHC 31.6 RDW Std Deviation 56.6 H Plt Count 26 L* Neut % (Auto) 68 Lymph % (Auto) 16 [place] % (Auto) 10 Eos % (Auto) 6 Baso % (Auto) 1 Neut # (Auto) 3.2 Lymph # (Auto) 0.7 L [place] # (Auto) 0.5 Eos # (Auto) 0.3 Baso # (Auto) 0.0 Immature Gran # (Auto) 0.02 H Absolute Nucleated RBC 0.00 Immature Gran % 0 Nucleated RBC % 0 Sodium 137 Potassium 3.9 D Chloride 103 Carbon Dioxide 24.5 Anion Gap 10 BUN 5 L Creatinine 0.6 Estim Creat Clear Calc 147.2 eGFR > 60 BUN/Creatinine Ratio 8 L Glucose 92 Calculated Osmolality 271 L Calcium 8.3 Corrected Calcium 9.1 Phosphorus 3.1 Magnesium 1.5 L Total Bilirubin 2.8 H AST 47 H ALT < 7 L Alkaline Phosphatase 187 H Total Protein 7.0 Albumin 3.0 L Globulin 4.0 H Albumin/Globulin Ratio 0.8 L Misc Test Result Platelets confirmed Platelets confirmed Quality Measures Quality Measures VTE prophylaxis Assessment & Plan Assessment Current Active Medications: Generic Name Dose Route Start Last Admin Trade Name Rivasq PRN Reason Stop Dose Admin Acetaminophen 650 mg 06/23/25 22:33 06/24/25 20:15 Acetaminophen 325 Mg Tablet PO 07/23/25 22:32 650 mg Q6H PRN Administration Fever >100.4 or pain 1-3 Hydrocodone Bitart/Acetaminophen 1 tab 06/23/25 22:33 Hydrocodone/Apap 5/325 Tablet PO 06/28/25 22:32 Q4HR PRN PAIN SCALE 4-10(Mod-Sev Carvedilol 3.125 mg 06/26/25 17:30 06/26/25 17:59 Carvedilol 3.125 Mg Tablet PO 07/26/25 17:29 Not Given BIDWM BRANDI Diazepam 2.5 mg 06/23/25 22:38 06/24/25 09:46 Diazepam Inj 5 Mg/Ml Vial 2 Ml IVP 06/28/25 22:37 2.5 mg Q2HR PRN Administration CIWA SCORE 8-13 Diazepam 5 mg 06/23/25 22:38 06/24/25 20:15 Diazepam Inj 5 Mg/Ml Vial 2 Ml IVP 06/28/25 22:37 5 mg Q2HR PRN Administration CIWA SCORE 14-19 Diazepam 10 mg 06/23/25 22:38 Diazepam Inj 5 Mg/Ml Vial 2 Ml IVP 06/28/25 22:37 Q2HR PRN CIWA SCORE 20-25 Folic Acid 1 mg 06/24/25 09:00 06/26/25 09:06 Folic Acid 1 Mg Tablet PO 07/24/25 08:59 1 mg QDAY BRANDI Administration Octreotide Acetate 1,000 mcg/ 102 mls @ 5.1 mls/hr 06/24/25 15:15 06/26/25 09:05 Sodium Chloride IV 07/24/25 15:14 50 mcg/hr .Q20H BRANDI 5.1 mls/hr Administration Protocol 50 MCG/HR Ceftriaxone Sodium/Dextrose 1 gm in 50 mls @ 100 mls/hr 06/24/25 21:00 06/26/25 20:19 Rocephin/D5w 1gm Iv Premix IV 07/01/25 20:59 100 mls/hr HS BRANDI Administration Magnesium Sulfate 4 gm in 50 mls @ 12.5 mls/hr 06/27/25 08:22 Magnesium Sulfate Ivpb IV 06/27/25 12:21 X1 ONE Potassium Phosphate 15 mmol/ 250 mls @ 62.5 mls/hr 06/27/25 08:22 Sodium Chloride IV 06/27/25 12:21 X1 ONE Ondansetron HCl 4 mg 06/23/25 22:33 06/25/25 22:42 Ondansetron Inj 2 Mg/Ml Inj 2 Ml IVP 07/23/25 22:32 4 mg Q6H PRN Administration NAUSEA OR VOMITING Protocol Pantoprazole Sodium 40 mg 06/24/25 09:00 06/26/25 20:19 Pantoprazole Inj 40 Mg Vial IVP 07/24/25 08:59 40 mg Q12HR BRANDI Administration Thiamine HCl 100 mg 06/24/25 09:00 06/26/25 09:06 Thiamine 100 Mg Tablet PO 07/24/25 08:59 100 mg QDAY BRANDI Administration Plan Mr. Wells is a 44 y/o male with PMH of EtOH misuse, EtOH withdrawal seizures,, cirrhosis, gastric and esophageal varices, splenomegaly, and frequent anemic episodes who presented to the ED 06/23 with anemia hgb 6.7 per outpatient PCP and melena x 2 days, admitted for upper GI bleed and anemia. #Upper GI bleed #Acute normocytic normochromic anemia #Pancytopenia #EtOH induced cirrhosis #Portal hypertension #Hx bleeding esophageal varices Hx of bleeding esophageal varices, frequent anemia last transfused 2U pRBC 06/20/25 Initially presented with Hgb 6.7 per outpatient PCP, melena x2 days. FOBT positive Hgb on admission 7.4 --> 1U pRBC --> hgb 9 --> 06/26, 8.4 Has signs of end-stage liver disease including low albumin, pancytopenia, elevated INR. EtOH on admission 342. EGD (06/25) which showed no varices but evidence of hypertensive portal gastropathy with mucosal oozing which is most likely the source of bleeding and anemia. Plan: - Continue Ceftriaxone 1 g IV daily (started 06/23) for SBP prophylaxis - Start carvedilol 3.125 with parameters (hold of SBP<100) - Octreotide drip for total of 5 days (Last day 06/28) - continued for mucosal oozing 2/2 advanced portal hypertension - Protonix 40 mg IV BID - CTM with daily CBC, transfuse as needed to maintain hgb > 7 - Consider transfusing platelets if <20 #EtOH misuse disorder Patient reports frequent alcohol use, approximately 75 ounces of beer daily. Last drink was just prior to admission on 06/23. Alcohol level on admission 342. Patient appears intoxicated at time of admission, now resolved. 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 C/F cystitis vs bladder cancer. No hematuria on urinalysis. Plan: - Outpatient follow up. Will require cystoscopy for assessment of bladder cancer. #Unstable housing Patient is homeless and stays at assisted at night Plan: - F/U with social media content manager Checklist Dispo: Continued octreotide gtt Diet: 2g sodium diet Bowel Reg: none VTE ppx: SCDs GI ppx: Protonix 40 mg IV BID Pain mgmt: [place] 5 mg q4h PO Code status: Full Plan discussed with Dr. Hidalgo and Dr. Duane Cruz MD PGY1 Attending Provider Attestation/Addendum I Charlotte Zepeda MD reviewed the note and agree with the resident's assessment & plan with modifications/additions/exceptions as below. I have personally reviewed labs, imaging, home meds/prior records, examined the patient, formulated and discussed management plan with the IM team. A 44-year-old male with history of cirrhosis, admitted with acute blood loss anemia due to upper GI bleed. Had EGD revealing mucosal oozing secondary to portal gastropathy, following transfusion hemoglobin stable. Continue Rocephin 1 g daily for SBP prophylaxis, continue octreotide and PPI IV x 5 days as per GI recommendations. Patient also noted to have a lung nodule and bladder wall thickening concerning for potential malignancy. Follow-up with oncology in outpatient settings within 1 week for further evaluation and management
[2025-06-27] MEDS: OCTREOTIDE ACET INJ 1,000 MCG in SODIUM CHLORIDE 0.9% 100 ML 5.1 MCG IV (09:03)
[2025-06-27] MEDS: POT PHOS 15 mMol in NS 250 ML 15 MMOL/250 ML BAG 62.5 MMOL IV (09:04)
[2025-06-27] MEDS: Magnesium Sulfate 4 GM Ivpb 4 GM/50 ML BAG IV (09:04)
[2025-06-27] MEDS: FOLIC ACID 1 MG TABLET PO (09:05)
[2025-06-27] MEDS: THIAMINE 100 MG TABLET PO (09:05)
--- NOTE | 2025-06-27 16:10 | ESPR_ITS ---
Documentation for date of: 06/27/25 Subjective Subjective Interval history: Hemoglobin hematocrit 9.0 and 28.5 Exam Vital Signs Temp Pulse Resp BP Pulse Ox O2 Del Method O2 Flow Rate 97 F 90 20 100/73 100 Room Air 2 06/27/25 12:00 06/27/25 12:00 06/27/25 12:00 06/27/25 12:00 06/27/25 12:00 06/27/25 12:00 06/25/25 21:15 Objective Labs 06/27/25 05:43 06/27/25 05:43 Labs: Laboratory Results - last 24 hr 06/27/25 05:43 WBC 4.7 RBC 3.23 L Hgb 9.0 L Hct 28.5 L MCV 88 MCH 27.9 MCHC 31.6 RDW Std Deviation 56.6 H Plt Count 26 L* Neut % (Auto) 68 Lymph % (Auto) 16 [place] % (Auto) 10 Eos % (Auto) 6 Baso % (Auto) 1 Neut # (Auto) 3.2 Lymph # (Auto) 0.7 L [place] # (Auto) 0.5 Eos # (Auto) 0.3 Baso # (Auto) 0.0 Immature Gran # (Auto) 0.02 H Absolute Nucleated RBC 0.00 Immature Gran % 0 Nucleated RBC % 0 Sodium 137 Potassium 3.9 D Chloride 103 Carbon Dioxide 24.5 Anion Gap 10 BUN 5 L Creatinine 0.6 Estim Creat Clear Calc 147.2 eGFR > 60 BUN/Creatinine Ratio 8 L Glucose 92 Calculated Osmolality 271 L Calcium 8.3 Corrected Calcium 9.1 Phosphorus 3.1 Magnesium 1.5 L Total Bilirubin 2.8 H AST 47 H ALT < 7 L Alkaline Phosphatase 187 H Total Protein 7.0 Albumin 3.0 L Globulin 4.0 H Albumin/Globulin Ratio 0.8 L Misc Test Result Platelets confirmed Impressions Impression: Hypertensive portal gastropathy with mucosal oozing of blood Continue octreotide infusion for total of 5 days Assessment & Plan A&P Narrative # Posthemorrhagic anemia grossly Hemoccult positive stool with hematemesis questionable hemoptysis Plan Clear liquid diet today N.p.o. midnight tonight Consent obtained for fiberoptic esophagogastroduodenoscopy with possible biopsy possible therapeutic intervention under intravenous moderate sedation scheduled for tomorrow morning Serial CBC IV Protonix Octreotide infusion at 50 mcg/h Will follow the patient Thank you very much for the opportunity to participate in the care of this patient Time Spent With Patient Time: Total time spent is greater than 50% in coordination of care (as documented) at patient's floor/unit and/or counseling patient:
[2025-06-27] MEDS: cefTRIAXone/D5w 1gm IV premix 1 GM/50 ML BAG IV (20:44)
[2025-06-28] VITALS: BP 97/69; PULSE 68; RESP 18; TEMP 36.6; O2SAT 95
[2025-06-28 04:00] VITALS: BP 98/76; PULSE 76; PULSE 78; RESP 16; TEMP 36.3; O2SAT 96
[2025-06-28 06:00] VITALS: BMI 43.6
[2025-06-28 06:28] LABS: Basophils # (Auto) 0.0 Thou/mm3 (0.0-0.2); Basophils % (Auto) 1 % (0-2.5); Eosinophils # (Auto) 0.3 Thou/mm3 (0.0-0.5); Eosinophils % (Auto) 6 % (0-10); Hematocrit 28.3 % (41.0-53.0); Hemoglobin 9.1 g/dL (13.5-16.0); Immature Granulocytes Auto 0.01 Thou/mm3 (0.00-0.00); Lymphocytes # (Auto) 0.8 Thou/mm3 (1.0-4.8); Lymphocytes % (Auto) 16 % (10-50); Mean Corpuscular HGB Conc 32.2 g/dl (31.0-37.0); Mean Corpuscular Hemoglobin 28.3 pg (25.0-35.0); Mean Corpuscular Volume 88 fL (80-100); Monocytes # (Auto) 0.5 Thou/mm3 (0.0-0.8); Monocytes % (Auto) 11 % (0-12); Neutrophils # (Auto) 3.1 Thou/mm3 (1.8-7.7); Neutrophils % (Auto) 66 % (37-80); Nucleated Red Blood Cell # 0.00 Thou/mm3 (0.00-0.00); Nucleated Red Blood Cell % 0 /100 WBC (0); RDW Standard Deviation 57.0 fL (35.1-43.9); Red Blood Count 3.22 Miln/mm3 (4.50-5.90); White Blood Count 4.7 Thou/mm3 (3.8-10.6)
[2025-06-28 06:30] LABS: Platelet Count 32 Thou/mm3 (140-440)
[2025-06-28 06:38] LABS: Slide Review Platelets confirmed
[2025-06-28] MEDS: OCTREOTIDE ACET INJ 1,000 MCG in SODIUM CHLORIDE 0.9% 100 ML 5.1 MCG IV (06:53)
[2025-06-28 07:11] LABS: Alanine Aminotransferase 7 U/L (10-49); Albumin, Serum 3.1 gm/dL (3.5-5.0); Albumin/Globulin Ratio 0.9 (1.2-2.2); Alkaline Phosphatase 189 U/L (46-116); Anion Gap 12 (7-16); Aspartate Amino Transferase 46 U/L (0-34); BUN/Creatinine Ratio 10 Ratio (12-20); Bilirubin,Total 2.5 mg/dL (0.3-1.2); Blood Urea Nitrogen 6 mg/dL (9-23); Calcium 8.6 mg/dL (8.3-10.6); Calcium (Corrected) 9.3 mg/dL (8.5-10.1); Carbon Dioxide 21.2 mMol/L (20.0-31.0); Chloride 102 mMol/L (98-107); Creatinine (Component) 0.6 mg/dL (0.6-1.3); Estimated Creatinine Clearance 186.5 mL/min (>60); Globulin 3.5 gm/dL (2.3-3.5); Glucose 93 mg/dL (74-106); Magnesium 1.4 mg/dL (1.6-2.6); Osmolality,Calculated 267 (275-295); Phosphorous 4.1 mg/dL (2.4-5.1); Potassium 3.8 mMol/L (3.4-5.1); Sodium 135 mMol/L (136-145); Total Protein 6.6 gm/dL (5.7-8.2); eGFR > 60 See Note
[2025-06-28 07:32] VITALS: BP 111/78; PULSE 76; RESP 16; TEMP 36.3; O2SAT 96
[2025-06-28 08:00] VITALS: PULSE 78
[2025-06-28 08:34] VITALS: BP 111/78; PULSE 89
[2025-06-28] MEDS: THIAMINE 100 MG TABLET PO (08:35)
[2025-06-28] MEDS: FOLIC ACID 1 MG TABLET PO (08:35)
[2025-06-28] MEDS: Magnesium Sulfate 2 GM Ivpb 2 GM/50 ML BAG IV (09:33)
[2025-06-28] MEDS: POTASSIUM CHL 10 mEq IVPB 10 MEQ/100 ML BAG 100 MEQ IV (09:34)
[2025-06-28 12:00] VITALS: BP 93/68; PULSE 73; PULSE 93; RESP 18; TEMP 36.6; O2SAT 96
--- NOTE | 2025-06-28 15:40 | PD.RESDS ---
Planned Discharge Date 06/28/25 DS: Providers Provider Date of admission: 06/23/25 22:33 Primary care physician: Cezar Adams MD Admitting Provider: Robin Hester MD Attending Provider on Admission: Anai Child DO Consults: 06/23/25 21:28 Consult to Gastroenterology Stat Comment: Consulting Provider: Supriya Perla 06/24/25 04:52 Health Equity Referral - Knowledge Deficit Routine Comment: Positive screening for knowledge deficit needs. Health Equity Referral - Nutrition Routine Comment: Positive screening for nutrition needs. Health Equity Referral - Safety Routine Comment: Positive screening for safety needs. Health Equity Referral - Transportation Routine Comment: Positive screening for transportation needs. Attending Provider on DC: Dr. Zepeda Discharging Provider: Keiry Cruz, DS: Diagnosis Problem List Completed Was Problem List Reviewed/Reconciled?: Yes Hospital Course Hospital Course Hospital course: Hospital Course Mr. Wells is a 44 y/o male with PMH of EtOH induced cirrhosis with esophageal varices, splenomegaly, frequent anemic episodes who presented to the ED on 06/23 with anemia per outpatient PCP and melena and hematochezia x 2 days. Denied hematemesis outpatient hemoglobin reported 6.7. Patient reported mild left-sided chest pain, pleuritic in nature. Patient reported epigastric pain. Patient reports that he drinks 3 tall beers per day. ED labs significant for EtOH level 342. Hemoglobin 7.4. s/p 1U pRBC hgb 9. Troponin negative, EKG sinus rhythm. Labs consistent with synthetic liver dysfunction. FOBT positive. Patient was admitted for upper GI bleed workup i/s/o alcohol induced cirrhosis with history of bleeding esophageal varices. Started on ceftriaxone 1g IV daily, octreotide gtt, Protonix 40 mg IV BID, daily thiamine and folate. Started on CIWA protocol. EGD showed distal cervical esophagus scarring from band ligation previously, no varices. Oozing of blood from stomach mucosa secondary to advanced portal hypertension portal gastropathy. No ulceration of pyloric channel duodenal bulb. Patient continued on octreotide for total of 5 days. Throughout hospitalization hemoglobin remained stable, patient did not have any more episodes of melena or hematochezia. Patient was started on carvedilol 3.125 mg BID for BP control. Incidental findings on CT A/P included left lower lobe lung nodule and irregular thickening of the bladder wall, seen on previous imaging. Patient denied cough, shortness of breath, wheezing, unintentional weight loss, night sweats. He does have a history of smoking tobacco. Denied dysuria, increased urinary urgency or frequency. UA positive for hematuria, otherwise unremarkable. Patient to follow-up outpatient for further management of alcohol induced cirrhosis and incidental CT findings, including cystoscopy and follow-up lung imaging. Patient stable and medically cleared for discharge. Diagnoses #Upper GI bleed #Acute normocytic normochromic anemia #Pancytopenia #EtOH induced cirrhosis #Portal hypertension #Hx bleeding esophageal varices #EtOH misuse disorder #Left lower lung nodule, incidental finding #Irregular bladder wall thickening, incidental finding #Unstable housing Discharge Instructions Abstain from alcohol. Start taking carvedilol 3.125 mg twice daily. Take folic acid and thiamine 1 tab daily. Continue taking Protonix 40 mg daily. Follow up with PCP within 2 weeks. Obtain referral to oncology to follow up lung mass. If you don't have a PCP, you can make an appointment at the [facility]: [address] [place] [address] Should your symptoms recur or worsen patient is instructed to return to the ED. Keiry Cruz MD PGY1 Time Spent with Patient Time attestation: Total time spent providing and/or coordinating discharge services: Time spent: Greater than 30 minutes Exam Vital Signs Temp Pulse Resp BP Pulse Ox O2 Del Method O2 Flow Rate 97.9 F 93 18 93/68 96 Room Air 2 06/28/25 12:06/28/25 12:06/28/25 12:06/28/25 12:06/28/25 12:06/28/25 12:06/25/25 21:15 Narrative Exam General: No acute distress, well nourished Eye: PERRL, EOMI, normal conjunctiva, no scleral icterus HENT: Normocephalic, atraumatic, normal hearing, moist oral mucosa Neck: Supple, non-tender, no JVD, no lymphadenopathy Lungs: Clear to auscultation bilaterally, non-labored respirations, symmetric chest rise, no use of accessory muscles Heart: Normal S1 and S2, no S3 or S4 appreciated. Normal rate and regular rhythm, no murmurs, rubs gallops, or edema. Peripheral pulses intact bilaterally, capillary refill brisk distally Abdomen: Soft, distended, TTP of epigastric region Musculoskeletal: Normal range of motion and strength, no tenderness or swelling Skin: Skin is warm, dry, no rashes or lesions. Neurologic: Alert, awake and oriented x3. CN II-XII grossly intact. No focal neuro deficits. No signs of meningeal irritation noted. Psychiatric: Cooperative, appropriate mood and affect Discharge Plan Plan Patient Disposition: HOME (Self Care) Patient condition on transfer: Stable Care Plan Goals: Abstain from alcohol. Start taking carvedilol 3.125 mg twice daily. Take folic acid and thiamine 1 tab daily. Continue taking Protonix 40 mg daily. Follow up with PCP within 2 weeks. Obtain referral to oncology to follow up lung mass. If you don't have a PCP, you can make an appointment at the [facility]: [address] [place] [address] Should your symptoms recur or worsen patient is instructed to return to the ED. Prescriptions/Referrals Prescriptions/Med Rec: New carvedilol 3.125 mg Tablet 3.125 mg PO BIDWM Qty: 60 1RF folic acid 1 mg Tablet 1 mg PO QDAY Qty: 60 0RF Continued pantoprazole 40 mg tablet,delayed release (DR/EC) 40 mg PO QDAY Qty: 90 0RF thiamine mononitrate (vit B1) 100 mg Tablet 100 mg PO QDAY Qty: 30 0RF Referrals: Cezar Adams MD [Primary Care Provider] - Patient/Caregiver Discharge Instructions Print Language: Slovak Stand Alone Forms: K[employer]ie Award Info., Patient Portal Info Letter Discharge Order Discharge Orders: Discharge (Routine); Ordered 06/28/25 Ordered By: Clarence Hidalgo Quality Discharge Quality Measures VTE prophylaxis Attestestation Attestation I Charlotte Zepeda MD reviewed the note and agree with the resident's assessment & plan with modifications/additions/exceptions as below. I have personally reviewed labs, imaging, home meds/prior records, examined the patient, formulated and discussed management plan with the IM team. A 44-year-old male with history of cirrhosis, admitted with acute blood loss anemia due to upper GI bleed. Had EGD revealing mucosal oozing secondary to portal gastropathy, following transfusion hemoglobin stable. Continue Rocephin 1 g daily for SBP prophylaxis, patient completing, will discharge on octreotide and PPI IV x 5 days as per GI recommendations, will discharge on Protonix 40 mg twice daily. Patient also noted to have a lung nodule and bladder wall thickening concerning for potential malignancy. Follow-up with oncology in outpatient settings within 1 week for further evaluation and management.
== END 2025-06-28 14:33 | disposition home or self-care (01) | DRG 280 ==
LOC: SERX 21:37 → SERHOLD 23:06 → S3SX 06-24 06:16 → S3NX 06-24 14:27
PROVIDERS: Physician Assistant Medical; Specialist; Admitting Provider Student in an Organized Health Care Education/Training Program; Emergency Provider Emergency Medicine; PCP Family Medicine; Visit Provider Internal Medicine
PROC: (CPT 43239; principal; 2025-06-25 22:00)
DX: K70.30 Alcoholic cirrhosis of liver without ascites (principal); R16.1 Splenomegaly, not elsewhere classified; Y90.8 Blood alcohol level of 240 mg/100 ml or more; R91.1 Solitary pulmonary nodule; F10.129 Alcohol abuse with intoxication, unspecified; D62 Acute posthemorrhagic anemia; D69.6 Thrombocytopenia, unspecified; D68.9 Coagulation defect, unspecified; D61.818 Other pancytopenia; I85.11 Secondary esophageal varices with bleeding; K31.89 Other diseases of stomach and duodenum; K76.6 Portal hypertension; I86.4 Gastric varices; Z59.01 Sheltered homelessness; Z78.9 Other specified health status; Z87.891 Personal history of nicotine dependence; Z79.899 Other long term (current) drug therapy
CPT/HCPCS: 36415; 71045; 71250; 74177; 80053; 80061; 80320; 81001; 82270; 83690; 83735; 84100; 84484; 85025; 85610; 85730; 86850; 86900; 86901; 86921; 86922; 87811; 93005; 93225; 96361; 96365; 96375; 96376; 99284; A4649; J0696; J1200; J2250; J2354; J2405; J2470; J3010; J3360; J3475; J3480; J7030; J7050; J7999; P9016; Q9967; A9270; G0480

== ENCOUNTER 2025-07-12 19:19 | Emergency (ER) | payer MEDICAID, SELFPAY ==
[2025-07-12 19:23] VITALS: BP 96/63; PULSE 75; RESP 18; TEMP 37.7; O2SAT 94
--- NOTE | 2025-07-12 20:01 | PD.EDALCOH ---
ED Alcohol RME/HPI General Chief Complaint: Alcohol Stated Complaint: ETOH Arrival date/time: 07/12/25 19:19 Mode of arrival: ambulatory RME / HPI RME / HPI narrative: DR. SINHA MAIN ED EVALUATION: 44 y/o male with Hx of Alcohol Abuse, Methamphetamine use, Esophageal Varices, and HTN presents to ED c/o waking up with BLE and facial swelling x approximately 12 hours ago. In addition, patient also reports generalized abdominlal and left-sided chest pain. Patient admits to consuming 3 beers throughout the day. Chronic alcohol use: Yes Previous visits for alcohol intoxication: Yes Recent trauma: No Associated symptoms: abdominal pain and depression Treatments prior to arrival: none Related Data Previous Rx's ?Medication ?Instructions ?Recorded thiamine mononitrate (vit B1) 100 100 mg PO QDAY #30 tabs 04/02/25 mg tablet carvedilol 3.125 mg tablet 3.125 mg PO BIDWM #60 tabs 06/28/25 folic acid 1 mg tablet 1 mg PO QDAY #60 tabs 06/28/25 pantoprazole 40 mg tablet,delayed 40 mg PO QDAY #90 tabs 06/28/25 release Allergies Allergy/AdvReac Type Severity Reaction Status Date / Time No Known Allergies Allergy Verified 06/19/25 23:45 Review of Systems Review of Systems Systems Reviewed: All systems reviewed, normal except as documented Past Medical History Past Medical History CARDIAC: Positive Cardiac Disorders, Myocardial Infarction, Angina and Hypertension GASTROINTESTINAL: Positive Hepatitis, Gastrointestinal Bleed, Esophageal Varices and Gastroesophageal Reflux Disease HEMATOLOGIC: Positive Anemia PSYCHO/SOCIAL: Positive Recreational Drug Use, Depression and Anxiety OTHER HISTORY: Positive Hospitalization, Falls, Blood Transfusions and Chicken Pox Social History SUBSTANCE USE: methamphetamine ALCOHOL: Current ALCOHOL FREQUENCY: 3 or More Drinks per Day HOUSING: Homeless LIVES WITH: Alone ED Exam Narrative Physical exam: Generally patient is alert follows commands without focal deficits, head is normocephalic atraumatic, pupils equal round reactive to light, oropharynx is moist and clear with normal-sized tongue, neck showed no stridor, heart regular rate and rhythm, lungs clear to auscultation equal bilaterally abdomen soft bowel sounds present slight fluid wave but nontender, extremities show 3+ pitting pedal edema extending up tibias bilaterally to the knees, neurologic exam patient is alert follows commands without focal motor deficits. Course Quality Measures none Orders Category Date Time Status CBC Stat Lab 07/12/25 20:24 Results CMP [Comprehensive Metabolic Panel] Stat Lab 07/12/25 20:24 Completed Vital Signs Vital signs: Vital Signs Temperature 99.8 F 07/12/25 19:23 Pulse Rate 75 07/12/25 19:23 Respiratory Rate 18 07/12/25 19:23 Blood Pressure 96/63 07/12/25 19:23 Pulse Oximetry (%) 94 L 07/12/25 19:23 Oxygen Delivery Method Room Air 07/12/25 19:23 Discharge Plan Plan Patient Disposition: HOME (Self Care) Prescriptions/Referrals Prescriptions/Med Rec: No Action carvedilol 3.125 mg Tablet 3.125 mg PO BIDWM Qty: 60 1RF folic acid 1 mg Tablet 1 mg PO QDAY Qty: 60 0RF pantoprazole 40 mg tablet,delayed release (DR/EC) 40 mg PO QDAY Qty: 90 0RF thiamine mononitrate (vit B1) 100 mg Tablet 100 mg PO QDAY Qty: 30 0RF Referrals: No Primary/Family,Physician [Primary Care Provider] - In 1 week Problem List Clinical Impression: Alcohol abuse Patient/Caregiver Discharge Instructions Education Materials: Alcohol Addiction Additional Instructions: Patient may be discharged when he is ambulatory. Print Language: Uzbek Stand Alone Forms: [employer]ie Award Info., Patient Portal Info Letter Alcohol MDM Narrative MDM Narrative: Scribe Attestation: Kelly Landers, am scribing for and in the presence of Dr. Sinha. Provider Notation: Although this document has been carefully reviewed, there may still be some phonetic and other typographical errors. These errors are purely grammatical due to imperfections in the software program and should not be construed in any way to compromise the substance of the patient's medical care during this visit. Patient last drink alcohol today. Comprehensive metabolic panel shows the patient not to be an alcoholic ketoacidosis. When the patient is ambulatory he will be stable for discharge Patient data External records reviewed:: [facility] previous records (Reviewed prior ED records from 06/23/25. Patient was seen for Alcohol abuse.) Clinical information provided by:: patient Social determinants that could affect healthcare access:: alcohol use (and Homeless) Patient has the following chronic illnesses:: Angina, Hypertension, Hepatitis, Gastrointestinal Bleed, Esophageal Varices, Gastroesophageal Reflux Disease, Anemia, Alcohol Abuse, Recreational Drug Use, Depression and Anxiety How is presenting disease/condition affected by chronic disease/condition?: exacerbated by Evaluation data The following diagnostics were reviewed and interpreted by me:: lab results Lab and/or radiology exams considered but not ordered:: None Interpretation Summary: See MDM above. Medications / Prescriptions Medications or Prescriptions considered but not ordered:: None Medication administrations:: See above if any. Consultations Consultation(s) initiated? (list below): No Diagnosis Differential diagnosis alcohol: alcohol withdrawal delirium, hypomagnesemia, alcohol intoxication, alcohol ketoacidosis, alcohol withdrawal syndrome and other (Angioedema, Peripheral edema, DVT) Most likely diagnosis given after review of the tests above:: None Admission Indicated Admission indicated?: not indicated Admission Request Was there a request for admission?: No Disposition Plan Disposition Plan: Discharge Discharge Attestation Discharge Attestation: The patient and all family members were given an opportunity to ask questions and understood the discharge instructions. Discharge instructions specifically effects, indications for sooner follow up or return to the emergency department, and the expected course of current diagnosis. Patient condition: Stable
[2025-07-12 20:56] LABS: Basophils # (Auto) 0.1 Thou/mm3 (0.0-0.2); Basophils % (Auto) 1 % (0-2.5); Eosinophils # (Auto) 0.8 Thou/mm3 (0.0-0.5); Eosinophils % (Auto) 10 % (0-10); Hematocrit 23.6 % (41.0-53.0); Immature Granulocytes Auto 0.02 Thou/mm3 (0.00-0.00); Lymphocytes # (Auto) 1.5 Thou/mm3 (1.0-4.8); Lymphocytes % (Auto) 19 % (10-50); Mean Corpuscular HGB Conc 33.1 g/dl (31.0-37.0); Mean Corpuscular Hemoglobin 28.1 pg (25.0-35.0); Mean Corpuscular Volume 85 fL (80-100); Monocytes # (Auto) 0.7 Thou/mm3 (0.0-0.8); Monocytes % (Auto) 9 % (0-12); Neutrophils # (Auto) 4.8 Thou/mm3 (1.8-7.7); Neutrophils % (Auto) 61 % (37-80); Nucleated Red Blood Cell # 0.00 Thou/mm3 (0.00-0.00); Nucleated Red Blood Cell % 0 /100 WBC (0); RDW Standard Deviation 56.5 fL (35.1-43.9); Red Blood Count 2.78 Miln/mm3 (4.50-5.90); White Blood Count 8.0 Thou/mm3 (3.8-10.6)
[2025-07-12 21:22] LABS: Alanine Aminotransferase 12 U/L (10-49); Albumin, Serum 3.1 gm/dL (3.5-5.0); Albumin/Globulin Ratio 1.0 (1.2-2.2); Alkaline Phosphatase 196 U/L (46-116); Anion Gap 13 (7-16); Aspartate Amino Transferase 65 U/L (0-34); BUN/Creatinine Ratio 9 Ratio (12-20); Bilirubin,Total 2.0 mg/dL (0.3-1.2); Blood Urea Nitrogen 7 mg/dL (9-23); Calcium 7.5 mg/dL (8.3-10.6); Calcium (Corrected) 8.2 mg/dL (8.5-10.1); Carbon Dioxide 22.5 mMol/L (20.0-31.0); Chloride 105 mMol/L (98-107); Creatinine (Component) 0.8 mg/dL (0.6-1.3); Globulin 3.2 gm/dL (2.3-3.5); Glucose 103 mg/dL (74-106); Osmolality,Calculated 277 (275-295); Potassium 3.5 mMol/L (3.4-5.1); Sodium 140 mMol/L (136-145); Total Protein 6.3 gm/dL (5.7-8.2); eGFR > 60 See Note
[2025-07-12 21:27] LABS: Hemoglobin 7.8 g/dL (13.5-16.0); Platelet Count 51 Thou/mm3 (140-440)
[2025-07-12 22:08] LABS: Slide Review Platelets confirmed
--- NOTE | 2025-07-12 23:57 | PC.LAC ---
PT HAS BEEN D/C BUT STILL UNABLE TO AMBULATE AT THIS TIME
[2025-07-13 00:03] VITALS: BP 105/70; PULSE 70; RESP 19; TEMP 36.7; O2SAT 94
== END 2025-07-13 00:11 | disposition home or self-care (01) ==
PROVIDERS: Emergency Provider Emergency Medicine
DX: F10.20 Alcohol dependence, uncomplicated (principal); Z59.00 Homelessness unspecified
CPT/HCPCS: 36415; 80053; 85025; 99282

== ENCOUNTER 2025-07-19 18:21 | Emergency (ER) | payer MEDICAID, SELFPAY ==
[2025-07-19 18:27] VITALS: PULSE 89; O2SAT 95
[2025-07-19 18:28] VITALS: BP 97/60; PULSE 74; RESP 19; TEMP 36.9; O2SAT 94
--- NOTE | 2025-07-19 19:10 | PD.EDADULT ---
ED General RME/HPI General Chief complaint: Abdominal Pain Stated complaint: abdominal pain Time Seen by Provider: 07/19/25 19:09 Arrival date/time: 07/19/25 18:21 CC: Nausea vomiting chest pain abdominal pain no diarrhea EMS reports stable vital signs patient has long history of alcohol intoxication admit to drinking today. No active vomiting at the time of exam Related Data Previous Rx's ?Medication ?Instructions ?Recorded thiamine mononitrate (vit B1) 100 100 mg PO QDAY #30 tabs 04/02/25 mg tablet carvedilol 3.125 mg tablet 3.125 mg PO BIDWM #60 tabs 06/28/25 folic acid 1 mg tablet 1 mg PO QDAY #60 tabs 06/28/25 pantoprazole 40 mg tablet,delayed 40 mg PO QDAY #90 tabs 06/28/25 release Allergies Allergy/AdvReac Type Severity Reaction Status Date / Time No Known Allergies Allergy Verified 06/19/25 23:45 Review of Systems Review of Systems Narrative Review of Systems: GEN: No fever, no chills, no weight loss EYES: No discharge, no visual changes, no pain HEENT: No ear pain, no congestion, no sore throat PULM: No shortness of breath, no cough, no congestion CV: + chest pain, no dyspnea on exertion, no palpitations GI: No nausea, + vomiting, no diarrhea, + pain, no constipation : No frequency, no urgency, no dysuria MUSC/SKEL: No joint pain, no back pain SKIN: No rash PSYCH: No hallucinations, no depression HEME/LYMPH: No easy bleeding or bruising tendencies NEURO: No weakness, no headache ED Exam Narrative Physical exam: [General: Obese, slurred speech, appears not in any acute distress Head normocephalic HEENT: Within acceptable limits Neck is supple nontender Chest equal chest rise nontender to palpation Respiratory: Clear to auscultation no wheezes crackles or rubs CV: Rate rhythm is regular no murmurs rubs or clicks Abdomen is distended secondary to body habitus soft nontender no masses positive bowel sounds all 4 quadrants Back: No CVA tenderness no spinous process tenderness from cervical spine thoracic and lumbar spine Skin: Intact no petechiae rash induration ulceration or crepitus Extremities: Moving all extremity against resistance cap refill less than 2 seconds neurosensory intact bilateral nonpitting lower extremity edema Neuro: Awake alert oriented x3 Glascow coma 15 no focal deficits] Course Quality Measures none Orders Category Date Time Status EKG (ED ONLY) *Do not use* NOW Care 07/19/25 19:12 Completed IV [Insert IV] NOW Care 07/19/25 21:43 Completed EKG (ED Only) Stat Exams 07/19/25 19:12 Draft Alcohol, Blood Medical Stat Lab 07/19/25 19:38 Completed Amylase Stat Lab 07/19/25 19:38 Completed CBC Stat Lab 07/19/25 19:38 Completed CMP [Comprehensive Metabolic Panel] Stat Lab 07/19/25 19:38 Completed PT [Prothrombin Time with INR] Stat Lab 07/19/25 19:38 Completed PTT [Partial Thromboplastin Time] Stat Lab 07/19/25 19:38 Completed Troponin I Stat Lab 07/19/25 19:38 Completed Folic Acid Inj Med 07/19/25 21:34 Discontinued 1 mg IM X1 ONE Folic Acid Inj Med 07/19/25 21:49 Discontinued 1 mg IVP X1 ONE Insulin Regular Med 07/19/25 22:28 Discontinued 5 unit SC X1 ONE Ringers Lactated 1000 ml [Lactated Ringers] 1,000 ml Med 07/19/25 21:34 Discontinued IV 999 mls/hr Ringers Lactated 1000 ml [Lactated Ringers] 1,000 ml Med 07/19/25 21:34 Discontinued IV 999 mls/hr Thiamine Inj [Vitamin B-1 Inj] 100 mg Med 07/19/25 21:50 Discontinued Sodium Chloride 0.9% [Ns] 100 ml IV X1 Thiamine Inj [Vitamin B-1 Inj] 250 mg Med 07/19/25 21:34 Discontinued Sodium Chloride 0.9% [Ns] 100 ml IV X1 Vital Signs Vital signs: Vital Signs Temperature 98.4 F 07/19/25 18:28 Pulse Rate 74 07/19/25 18:28 Respiratory Rate 19 07/19/25 18:28 Blood Pressure 97/60 07/19/25 18:28 Pulse Oximetry (%) 94 L 07/19/25 18:28 Oxygen Delivery Method Room Air 07/19/25 18:28 Discharge Plan Plan Patient Disposition: HOME (Self Care) Patient condition on transfer: Stable Prescriptions/Referrals Prescriptions/Med Rec: No Action carvedilol 3.125 mg Tablet 3.125 mg PO BIDWM Qty: 60 1RF folic acid 1 mg Tablet 1 mg PO QDAY Qty: 60 0RF pantoprazole 40 mg tablet,delayed release (DR/EC) 40 mg PO QDAY Qty: 90 0RF thiamine mononitrate (vit B1) 100 mg Tablet 100 mg PO QDAY Qty: 30 0RF Referrals: Cezar Adams MD [Physician, Family Practice] - In 1 week No Primary/Family,Physician [Primary Care Provider] - In 1 week Problem List Clinical Impression: Alcohol intoxication, Alcoholic cirrhosis, Hyperglycemia due to diabetes mellitus Patient/Caregiver Discharge Instructions Education Materials: ED Cirrhosis, ED Alcohol Intoxication Print Language: Amharic Stand Alone Forms: Kallie Award Info., Patient Portal Info Letter PA/DIRECTOR INTERNAL CONTROL Supervising Physician PA/DIRECTOR INTERNAL CONTROL Supervising Physician: Surendra Oliveira ENP [facility] Clinical Information Provided by patient and EMS Medical [facility] Meds/Rx Considered, not Ordered None Labs/Rad/Tests considered, not Ordered None Chronic Illness/Social Conditions which may negatively complicate care or outcome(s)-explain: ETOH/drugs/substance abuse EKG EKG Interpretation narrative: EKG performed at 1935 shows a ventricular rate of 6 6. Normal 150 QRS of 97 QTc of 436 is normal sinus rhythm. Lab Interpretation Labs: interpreted by de Lab(s) interpretation(s): Okay coags show a PT of 14.9 INR 1.4 APTT of 34.2 CMP shows no other acute electrolyte imbalances renal impairment calcium at 8.1 T. bili at 2.3 alk phos at 212 AST 81 ALT of 12. Alcohol level of 414. Troponin is negative. Imaging Imaging interpretation: none Radiology reports / interpretation(s): Patient is awake and alert this is a chronic state for him with multiple visits to the ER for the same complaint Medication Administration(s) Medication Administration History Discontinued Medications Folic Acid (Folic Acid Inj 1 Mg/0.2 Ml) 1 mg IM X1 ONE Stop: 07/19/25 21:35 Last Admin: 07/19/25 21:51 Dose: Not Given Documented By: LISA Non-Admin Reason: Discontinued Folic Acid (Folic Acid Inj 1 Mg/0.2 Ml) 1 mg IVP X1 ONE Stop: 07/19/25 21:50 Last Admin: 07/19/25 22:10 Dose: 1 mg Documented By: LISA Lactated Ringer's (Lactated Ringers) 1,000 mls @ 999 mls/hr IV .Q1H1M ONE Stop: 07/19/25 22:34 Last Infusion: 07/19/25 22:38 Dose: Infused Documented By: Admin: 07/19/25 21:48 Dose: 999 mls/hr Documented By: LISA Lactated Ringer's (Lactated Ringers) 1,000 mls @ 999 mls/hr IV .Q1H1M ONE Stop: 07/19/25 22:34 Last Infusion: 07/20/25 00:15 Dose: Infused Documented By: Admin: 07/19/25 23:14 Dose: 999 mls/hr Documented By: LISA Thiamine HCl 250 mg/ Sodium (Chloride) 102.5 mls @ 205 mls/hr IV X1 ONE Stop: 07/19/25 22:03 Last Admin: 07/19/25 21:51 Dose: Not Given Documented By: LISA Non-Admin Reason: Discontinued Thiamine HCl 100 mg/ Sodium (Chloride) 101 mls @ 202 mls/hr IV X1 ONE Stop: 07/19/25 22:19 Last Infusion: 07/19/25 23:10 Dose: Infused Documented By: Admin: 07/19/25 22:38 Dose: 202 mls/hr Documented By: LISA Insulin Human Regular (Insulin Hum Regular 1 Unit/0.01 Ml (Per Unit)) 5 unit SC X1 ONE Stop: 07/19/25 22:29 Last Admin: 07/19/25 22:50 Dose: Not Given Documented By: LISA Non-Admin Reason: Discontinued Diagnosis Differential diagnosis: ACS NH pneumonia Most likely dx, and/or detailed dx discussion: Acute on chronic alcohol intoxication Dispositon Disposition: Discharge Home
--- NOTE | 2025-07-19 19:12 | EKG_ITS ---
[facility] Test Date: 2025-07-19 Pat Name: KOLBY RON Department: Room: - Gender: Male Adult Crossing Guard: : 1980 Requested By: Surendra Peck Order Number: [id number] Reading MD: Surendra Peck Measurements Intervals Varina Rate: 66 P: 29 NM: 150 QRS: 1 QRSD: 97 T: 29 QT: 422 QTc: 444 Interpretive Statements SINUS RHYTHM Compared to ECG 06/23/2025 19:13:16 No significant changes /store/S0/[id number].pdf
[2025-07-19 19:24] VITALS: BMI 29.2
[2025-07-19 20:13] LABS: Basophils # (Auto) 0.1 Thou/mm3 (0.0-0.2); Basophils % (Auto) 1 % (0-2.5); Eosinophils # (Auto) 0.5 Thou/mm3 (0.0-0.5); Eosinophils % (Auto) 8 % (0-10); Hematocrit 25.6 % (41.0-53.0); Immature Granulocytes Auto 0.02 Thou/mm3 (0.00-0.00); Lymphocytes # (Auto) 1.3 Thou/mm3 (1.0-4.8); Lymphocytes % (Auto) 22 % (10-50); Mean Corpuscular HGB Conc 32.0 g/dl (31.0-37.0); Mean Corpuscular Hemoglobin 27.7 pg (25.0-35.0); Mean Corpuscular Volume 87 fL (80-100); Monocytes # (Auto) 0.4 Thou/mm3 (0.0-0.8); Monocytes % (Auto) 7 % (0-12); Neutrophils # (Auto) 3.4 Thou/mm3 (1.8-7.7); Neutrophils % (Auto) 61 % (37-80); Nucleated Red Blood Cell # 0.00 Thou/mm3 (0.00-0.00); Nucleated Red Blood Cell % 0 /100 WBC (0); RDW Standard Deviation 65.7 fL (35.1-43.9); Red Blood Count 2.96 Miln/mm3 (4.50-5.90); White Blood Count 5.6 Thou/mm3 (3.8-10.6)
[2025-07-19 20:25] LABS: INR 1.4 (0.9-1.3); Partial Thromboplastin Time 34.2 Seconds (22.0-36.0); Prothrombin Time 14.9 Seconds (9.0-12.2)
[2025-07-19 20:40] LABS: Alanine Aminotransferase 12 U/L (10-49); Albumin, Serum 3.4 gm/dL (3.5-5.0); Albumin/Globulin Ratio 0.9 (1.2-2.2); Alkaline Phosphatase 212 U/L (46-116); Amylase 113 U/L (30-118); Anion Gap 12 (7-16); Aspartate Amino Transferase 81 U/L (0-34); BUN/Creatinine Ratio 8 Ratio (12-20); Bilirubin,Total 2.3 mg/dL (0.3-1.2); Blood Urea Nitrogen < 5 mg/dL (9-23); Calcium 8.1 mg/dL (8.3-10.6); Calcium (Corrected) 8.6 mg/dL (8.5-10.1); Carbon Dioxide 25.2 mMol/L (20.0-31.0); Chloride 106 mMol/L (98-107); Creatinine (Component) 0.6 mg/dL (0.6-1.3); Estimated Creatinine Clearance 154.6 mL/min (>60); Globulin 3.6 gm/dL (2.3-3.5); Glucose 94 mg/dL (74-106); Osmolality,Calculated 282 (275-295); Potassium 3.6 mMol/L (3.4-5.1); Sodium 143 mMol/L (136-145); Total Protein 7.0 gm/dL (5.7-8.2); Troponin I 0.024 ng/mL (0.0-0.045); eGFR > 60 See Note
[2025-07-19 20:50] LABS: Alcohol, Blood Medical 414.0 mg/dL (0-10.0)
[2025-07-19 20:54] LABS: Hemoglobin 8.2 g/dL (13.5-16.0)
[2025-07-19 20:55] LABS: Platelet Count 27 Thou/mm3 (140-440)
[2025-07-19] MEDS: RINGERS LACTATED 1000 ML 1,000 ML 999 ML IV ×2 (21:48→23:14)
[2025-07-19] MEDS: FOLIC ACID INJ 1 MG/0.2 ML IVP (22:10)
[2025-07-19 22:15] VITALS: BP 111/76; PULSE 75; RESP 16; TEMP 36.8; O2SAT 97
[2025-07-19] MEDS: THIAMINE INJ 100 MG in SODIUM CHLORIDE 0.9% 100 ML 202 MG IV (22:38)
[2025-07-19 23:46] LABS: Slide Review Platelets confirmed
[2025-07-20 02:21] VITALS: BP 130/80; PULSE 65; RESP 16; TEMP 36.6
== END 2025-07-20 02:30 | disposition home or self-care (01) ==
PROVIDERS: Registered Nurse General Practice; Emergency Provider Emergency Medicine
DX: K70.30 Alcoholic cirrhosis of liver without ascites (principal); F10.129 Alcohol abuse with intoxication, unspecified; E66.9 Obesity, unspecified; Z68.29 Body mass index [BMI] 29.0-29.9, adult; E11.65 Type 2 diabetes mellitus with hyperglycemia; Y90.8 Blood alcohol level of 240 mg/100 ml or more
CPT/HCPCS: 36415; 80053; 80320; 82150; 84484; 85025; 85610; 85730; 93005; 96361; 96365; 96375; 99283; J3411; J3490; J7050; J7120; G0480

== ENCOUNTER 2025-08-03 09:18 | Emergency (ER) | payer MEDICAID, SELFPAY ==
[2025-08-03 09:27] VITALS: PULSE 71; RESP 19; O2SAT 96; BMI 29.2
[2025-08-03 09:39] VITALS: BP 117/79; PULSE 90; RESP 16; TEMP 36.7; O2SAT 95
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
--- NOTE | 2025-08-03 10:11 | XR_ITS ---
Examination: CT brain head without contrast. 2-D sagittal coronal reconstructions Date and time of exam:August 03, 2025, 1147 hours, comparison April 06, 2025 INDICATIONS: Onset headaches today CTDI: vol (mGy):48.7 DLP: (mGycm):926 Technique: Multiple CT axial sections of the brain have been obtained, 5 mm slice thickness. Contrast has not been administered. 2-D sagittal, coronal reconstructions have been obtained Low dose protocols were performed. One or more of the following dose reduction techniques were used; automated exposure control, adjustment of the mA and/or KV according to patient size, use of iterative reconstruction technique. Findings: No significant ventricular enlargement. Intra-axial or extra-axial hemorrhage density is not seen. No mass effect or midline shift Basal cisterns are not remarkable. Fourth ventricle is midline. Cranial vault intact. Impression: Negative for acute hemorrhage, mass effect or midline shift Mild chronic maxillary sinusitis
--- NOTE | 2025-08-03 10:11 | XR_ITS ---
Examination: CT abdomen with intravenous contrast CT pelvis with intravenous contrast 2-D coronal reconstructions 2-D sagittal reconstructions Date and time of exam:August 03, 2025, 1129 hours, comparison June 23, 2025 INDICATIONS: Black stools beginning 3 days ago. CTDI: vol (mGy) 13.5 DLP: (mGycm) 832 Technique: Multiple axial sections of the abdomen and pelvis have been obtained. 64 slice high-resolution scanner used. 3 mm axial sections have been obtained, post intravenous injection 60 cc [id number] 2-D sagittal, coronal reconstructions obtained. Low dose protocols were performed. One or more of the following dose reduction techniques were used; automated exposure control, adjustment of the mA and/or KV according to patient size, use of iterative reconstruction technique. Findings: Mild to moderate enlargement cardiac contour Cirrhosis, liver irregular in contour No gallstones Prominent splenomegaly Esophageal varices Gastric varices Spleen not enlarged No hydronephrosis Aorta normal size 20 mm fat-containing a umbilical hernia Normal appendix Distended urinary bladder No prostatomegaly IMPRESSION: Cirrhosis. Prominent splenomegaly. Esophageal and gastric varices Small fat-containing umbilical hernia. Normal appendix No bowel obstruction No nonspecific colitis pattern, negative for diverticulitis
[2025-08-03 10:38] LABS: Basophils # (Auto) 0.1 Thou/mm3 (0.0-0.2); Basophils % (Auto) 2 % (0-2.5); Eosinophils # (Auto) 0.1 Thou/mm3 (0.0-0.5); Eosinophils % (Auto) 2 % (0-10); Immature Granulocytes Auto 0.01 Thou/mm3 (0.00-0.00); Monocytes # (Auto) 0.3 Thou/mm3 (0.0-0.8); Monocytes % (Auto) 10 % (0-12); Neutrophils # (Auto) 2.2 Thou/mm3 (1.8-7.7); Nucleated Red Blood Cell # 0.00 Thou/mm3 (0.00-0.00); Nucleated Red Blood Cell % 0 /100 WBC (0)
[2025-08-03 10:40] LABS: Hematocrit 28.5 % (41.0-53.0); Hemoglobin 9.3 g/dL (13.5-16.0); Lymphocytes # (Auto) 0.8 Thou/mm3 (1.0-4.8); Lymphocytes % (Auto) 22 % (10-50); Mean Corpuscular HGB Conc 32.6 g/dl (31.0-37.0); Mean Corpuscular Hemoglobin 28.4 pg (25.0-35.0); Mean Corpuscular Volume 87 fL (80-100); Neutrophils % (Auto) 64 % (37-80); RDW Standard Deviation 69.5 fL (35.1-43.9); Red Blood Count 3.27 Miln/mm3 (4.50-5.90); White Blood Count 3.4 Thou/mm3 (3.8-10.6)
[2025-08-03 10:42] LABS: Platelet Count 12 Thou/mm3 (140-440)
[2025-08-03 10:43] LABS: Slide Review Platelets confirmed
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
[2025-08-03 10:57] LABS: Alanine Aminotransferase 15 U/L (10-49); Albumin, Serum 3.9 gm/dL (3.5-5.0); Albumin/Globulin Ratio 0.9 (1.2-2.2); Alkaline Phosphatase 184 U/L (46-116); Anion Gap 14 (7-16); Aspartate Amino Transferase 99 U/L (0-34); BUN/Creatinine Ratio 7 Ratio (12-20); Bilirubin,Total 3.1 mg/dL (0.3-1.2); Blood Urea Nitrogen < 5 mg/dL (9-23); Calcium 8.8 mg/dL (8.3-10.6); Calcium (Corrected) 8.9 mg/dL (8.5-10.1); Carbon Dioxide 24.8 mMol/L (20.0-31.0); Chloride 99 mMol/L (98-107); Creatinine (Component) 0.7 mg/dL (0.6-1.3); Estimated Creatinine Clearance 127.7 mL/min (>60); Globulin 4.2 gm/dL (2.3-3.5); Glucose 98 mg/dL (74-106); Lipase 33 U/L (12-53); Magnesium 1.6 mg/dL (1.6-2.6); Osmolality,Calculated 272 (275-295); Potassium 3.7 mMol/L (3.4-5.1); Sodium 138 mMol/L (136-145); Total Protein 8.1 gm/dL (5.7-8.2); eGFR > 60 See Note
[2025-08-03 11:14] VITALS: BP 118/79; PULSE 97; RESP 19; TEMP 36.8; O2SAT 97
[2025-08-03] MEDS: METOCLOPRAMIDE INJ 5 MG/ML VIAL 2 ML 10 MG IVP (11:30)
[2025-08-03] MEDS: ACETAMINOPHEN 500 MG TABLET PO (11:34)
[2025-08-03 13:00] VITALS: BP 114/85; PULSE 100; RESP 15; TEMP 36.8; O2SAT 97
--- NOTE | 2025-08-03 14:06 | PC.NURSE ---
PT WAS ABLE TO GET UP AND WALK TO THE BATHROOM AND BACK TO ROOM 8 WITH A STEADY GATE, PT WAS ALSO GIVEN FOOD AND MILK WITHOUT ANY COMPLICATIONS. DR. CERVANTES MADE AWARE.
[2025-08-03 15:17] VITALS: BP 107/73; PULSE 96; RESP 16; TEMP 36.7; O2SAT 99
== END 2025-08-03 15:20 | disposition home or self-care (01) ==
PROVIDERS: Emergency Provider Family Medicine
DX: F10.20 Alcohol dependence, uncomplicated (principal); R51.9 Headache, unspecified
CPT/HCPCS: 36415; 70450; 74177; 80053; 83690; 83735; 85025; 86850; 86900; 86901; 96374; 96375; 99284; A4649; J1200; J2470; J2765; Q9967; A9270

== ENCOUNTER 2025-08-04 21:05 | Emergency (ER) | payer MEDICAID, SELFPAY ==
[2025-08-04 21:10] VITALS: BMI 27.7
[2025-08-04 21:15] VITALS: PULSE 99; O2SAT 95
[2025-08-04 21:19] VITALS: BP 114/78; PULSE 100; RESP 12; TEMP 36.7; O2SAT 96
--- NOTE | 2025-08-04 21:43 | XR_ITS ---
Examination: CT maxillofacial, without intravenous contrast. 2-D sagittal reconstructions. 3-D reconstructions. Date and time of exam:August 04, 2025, 10:31 PM Indications: Ground-level fall today with injury to the face, facial pain CTDI: vol (mGy):22.7 DLP: (mGycm):468 Technique: Multiple axial images of maxillofacial region, 3.0 mm slice thickness. 2-D sagittal and coronal reconstructions. 3-D reconstructions. Low dose protocols were performed. One or more of the following dose reduction techniques were used; automated exposure control, adjustment of the mA and/or KV according to patient size, use of iterative reconstruction technique. Findings: Frontal bone frontal sinuses intact Orbital rims intact No nasal bone fracture No depression zygomatic arches. Pterygoid plates maxilla and the mandible intact. Impression: No acute facial fracture
--- NOTE | 2025-08-04 21:43 | XR_ITS ---
Examination: CT brain head without contrast. 2-D sagittal coronal reconstructions Date and time of exam:August 03, 2025, 1147 hrs. Indications: Ground-level fall today with injury to the head, head pain altered mental status CTDI: vol (mGy):49.5 DLP: (mGycm):1001 Technique: Multiple CT axial sections of the brain have been obtained, 5 mm slice thickness. Contrast has not been administered. 2-D sagittal, coronal reconstructions have been obtained Low dose protocols were performed. One or more of the following dose reduction techniques were used; automated exposure control, adjustment of the mA and/or KV according to patient size, use of iterative reconstruction technique. Findings: No significant ventricular enlargement. Intra-axial or extra-axial hemorrhage density is not seen. No mass effect or midline shift Basal cisterns are not remarkable. Fourth ventricle is midline. Cranial vault intact. Impression: Negative for acute hemorrhage, mass effect or midline shift
--- NOTE | 2025-08-04 21:45 | PD.EDADULT ---
ED General RME/HPI General Chief complaint: Alcohol Stated complaint: ALCOHOL Time Seen by Provider: 08/04/25 21:41 Arrival date/time: 08/04/25 21:05 CC: Facial pain HPI patient is highly intoxicated is presents to the ER via EMS who report a witnessed fall. Patient has been seen here multiple times including yesterday for alcohol abuse. The patient is highly intoxicated with slurred speech Citizen [place]-speaking only. Related Data Home Medications ?Medication ?Instructions ?Recorded ?Confirmed acamprosate 333 mg tablet,delayed 333 mg PO QDAY 08/07/25 08/07/25 release ascorbic acid (vitamin C) 250 mg 250 mg PO QDAY 08/07/25 08/07/25 tablet ferrous sulfate 325 mg (65 mg 325 mg PO QDAY 08/07/25 08/07/25 iron) tablet gabapentin 400 mg capsule 400 mg PO Q8HR PRN shakes 08/07/25 08/07/25 Previous Rx's ?Medication ?Instructions ?Recorded thiamine mononitrate (vit B1) 100 100 mg PO QDAY #30 tabs 04/02/25 mg tablet carvedilol 3.125 mg tablet 3.125 mg PO BIDWM #60 tabs 06/28/25 folic acid 1 mg tablet 1 mg PO QDAY #60 tabs 06/28/25 pantoprazole 40 mg tablet,delayed 40 mg PO QDAY #90 tabs 06/28/25 release Allergies Allergy/AdvReac Type Severity Reaction Status Date / Time No Known Allergies Allergy Verified 08/06/25 11:27 Review of Systems Review of Systems ROS Unobtainable: unobtainable due to mental status Past Medical History Past Medical History NEUROLOGIC: Negative Neurological Disorders or Seizures CARDIAC: Positive Myocardial Infarction, Angina and Hypertension; Negative Cardiac Disorders, Cardiac Arrhythmia, Atrial Fibrillation, Heart Murmur, Coronary Artery Disease, Atherosclerotic Heart Disease, Peripheral Vascular Disease, Hypercholesterolemia, Aneurysm, Congestive Heart Failure, Congenital Heart Disease, Rheumatic Fever, Cardiomyopathy, Edema, Pericarditis, Cellulitis, Deep Vein Thrombosis, Hypotension or Varicose Veins RESPIRATORY: Negative Chronic Obstructive Pulmonary Disease (COPD) or Asthma GASTROINTESTINAL: Positive Hepatitis, Gastrointestinal Bleed, Esophageal Varices and Gastroesophageal Reflux Disease; Negative Gastrointestinal Disorders, Cirrhosis, Pancreatitis, Celiac Disease, Gall Bladder Disease, Bettencourt's Esophagus, Colitis, Ulcerative Colitis, Diverticulitis, Diverticulosis, Ulcer, Irritable Bowel, Crohn's Disease, Obstructive Bowel, Hiatal Hernia, Hemorrhoids or Obesity GENITOURINARY: Negative Genitourinary Disorders or Renal Disease MUSCULOSKELETAL: Negative Musculoskeletal Disorders ENT: Negative Cataracts, Glaucoma, Blind, Retinal Detachment, Macular Degeneration, Ear Infection, Deafness or Eye Prosthesis ENDOCRINE: Negative Endocrine Disorders, Diabetes Mellitus Type 1, Diabetes Mellitus Type 2, Hypoglycemia, Fairchance's Syndrome, Tadeo's Disease, Hyperthyroidism, Hypothyroidism, Parathyroid Disease, Pituitary Disease, Systemic Lupus Erythematosus, Syndrome of Inappropriate Antidiuretic Hormone (SIADH), Adrenal Disease or Graves' Disease HEMATOLOGIC: Positive Anemia; Negative Blood Disorders or Sickle Cell Disease PSYCHO/SOCIAL: Positive Recreational Drug Use, Depression and Anxiety OTHER HISTORY: Positive Hospitalization, Falls, Blood Transfusions and Chicken Pox; Negative Autoimmune Disease, Down Syndrome, Developmental Delay, Blood Transfusion Reaction, Anesthesia Reactions, Organ Transplant, MRSA, VRSA, Clostridium Difficile or Cancer Family History FAMILY HISTORY: Negative Family Psychiatric Problems, Family Respiratory Disorders, Family Cardiac Disorders, Family Gastrointestinal Problems, Family Cancer, Family Surgery or Family Anesthesia Reaction Surgical History SURGICAL: Negative Cardiac Surgery, Pacemaker, Endocrine Surgery, Ear Surgery, Abdominal Surgery, Nephrectomy, Joint Replacement, Neurologic Surgery, Vasectomy or Organ Transplant Social History SMOKING STATUS: Former smoker SECOND HAND EXPOSURE: No SUBSTANCE USE: methamphetamine ED Exam Narrative Physical exam: [General: Appears not in any acute distress Head normocephalic, no step-offs hematoma induration ulceration depression HEENT: Eyes pupils are PERRLA EOMs are intact mouth bloody saliva, no step-offs in the upper or lower mandible with palpation. No pops or clicks with palpation of the TMJ with mastication. Slurred speech. No obvious lacerations abrasions appreciated. No dislodged teeth. Swallow symmetrical phonation is normal uvula is midline. Nose: No rhinorrhea or epistaxis. All the subsystems of HEENT are within acceptable limits Neck is supple nontender no edema erythema Chest equal chest rise nontender to palpation Respiratory: Clear to auscultation no wheezes crackles or rubs CV: Rate rhythm is regular no murmurs rubs or clicks Abdomen is soft nontender no masses positive bowel sounds all 4 quadrants Back: No CVA tenderness no spinous process tenderness from cervical spine thoracic and lumbar spine Skin: Intact no petechiae rash induration ulceration or crepitus Extremities: Moving all extremity against resistance cap refill less than 2 seconds neurosensory intact Neuro: Awake alert oriented x 1 Glascow coma 15 Course Quality Measures none Orders Category Date Time Status CT cervical spine wo con Stat Exams 08/04/25 21:[address] facial bones wo con Stat Exams 08/04/25 21:[address] head/brain wo con Stat Exams 08/04/25 21:43 Completed Vital Signs Vital signs: Vital Signs Temperature 98.0 F 08/04/25 21:19 Pulse Rate 100 08/04/25 21:19 Respiratory Rate 12 08/04/25 21:19 Blood Pressure 114/78 08/04/25 21:19 Pulse Oximetry (%) 96 08/04/25 21:19 Oxygen Delivery Method Room Air 08/04/25 21:19 Discharge Plan Plan Patient Disposition: HOME (Self Care) Prescriptions/Referrals Prescriptions/Med Rec: No Action carvedilol 3.125 mg Tablet 3.125 mg PO BIDWM Qty: 60 1RF folic acid 1 mg Tablet 1 mg PO QDAY Qty: 60 0RF pantoprazole 40 mg tablet,delayed release (DR/EC) 40 mg PO QDAY Qty: 90 0RF thiamine mononitrate (vit B1) 100 mg Tablet 100 mg PO QDAY Qty: 30 0RF gabapentin 400 mg capsule 400 mg PO Q8HR PRN (Reason: shakes) Patient Comments: TOME 1 C PSULA POR V A ORAL CADA [place] SEA NECESARIO FOR SHAKES FROM ALCOHOL WITHDRAWAL ferrous sulfate 325 mg (65 mg iron) tablet 325 mg PO QDAY Patient Comments: TOME 1 TABLETA POR V A ORAL TODOS LOS D ascorbic acid (vitamin C) 250 mg tablet 250 mg PO QDAY Patient Comments: TOME 1 TABLETA POR V A ORAL TODOS LOS D FOR 30 DAYS acamprosate 333 mg tablet,delayed release (DR/EC) 333 mg PO QDAY Patient Comments: TOME DOS TABLETAS POR V A ORAL DOS VECES AL D A Referrals: Cezar Adams MD [Primary Care Provider, Family Practice] - In 1 week Problem List Clinical Impression: Alcohol intoxication, Fall, Facial trauma Patient/Caregiver Discharge Instructions Additional Instructions: Decrease your consumption of alcohol. Print Language: Citizen [place] Stand Alone Forms: Kallie Award Info., Patient Portal Info Letter MDM Clinical Information Provided by: patient Medical Records reviewed [facility] Meds/Rx considered, not ordered None Labs/Rad/Tests considered, not ordered None Chronic Illness/Social Conditions which may negatively complicate care or outcome(s)-explain: ETOH/drugs/substance abuse EKG EKG not done Labs Labs: none Imaging Imaging interpretation: interpreted by me
--- NOTE | 2025-08-04 21:47 | XR_ITS ---
Examination: CT cervical spine without contrast 2-D sagittal reconstructions 2-D coronal reconstructions 3-D reconstructions. Exam date and time:July, 2024, 1031 hrs. Indications: Ground-level fall today with injury to the neck, neck pain CTDI:vol (mGy) 14.6 DLP: (mGycm) 303 Technique: Multiple 2 mm axial sections of the cervical spine have been obtained. The coronal and sagittal reconstructions have been obtained. 3-D reconstructions have been obtained. Low dose protocols were performed. One or more of the following dose reduction techniques were used; automated exposure control, adjustment of the mA and/or KV according to patient size, use of iterative reconstruction technique. Findings: Axial sections demonstrate intact base of the skull. C1 exhibit satisfactory relationship to the odontoid. No acute cervical vertebral body fracture seen. Alignment posterior spinous processes satisfactory. Impression: No acute cervical fracture.
[2025-08-04 23:00] VITALS: BP 106/77; PULSE 92; RESP 12; O2SAT 100
--- NOTE | 2025-08-04 23:04 | PD.EDADDENDU ---
Emergency Room Addendum <Ny Adams - Last Filed: 08/04/25 23:07> Addendum Narrative: 2300: Care assumed from Surendra Oliveira NP. Past medical, surgical, social and family history reviewed. Vitals and home medications reviewed. Results and treatment plan discussed. I will assume the care of the patient at this time and will follow the patient. Please refer to the emergency department record for history and examination from initial visit. RADIOLOGY RESULTS: [facility] Report Signed Patient: KOLBY RON. Record#: [id number] Birthdate: 1980 Age/Sex: 44 / M Location: [facility] Attending Dr: Ordering Physician: Surendra Oliveira NP Date of Service: 08/04/25 Procedure(s): CT cervical spine wo con Accession Number(s): [id number] cc: Cezar Adams MD; Surendra Oliveira NP; Zach Masters MD~ Examination: CT cervical spine without contrast 2-D sagittal reconstructions 2-D coronal reconstructions 3-D reconstructions. Exam date and time:July, 2024, 1031 hrs. Indications: Ground-level fall today with injury to the neck, neck pain CTDI:vol (mGy) 14.6 DLP: (mGycm) 303 Technique: Multiple 2 mm axial sections of the cervical spine have been obtained. The coronal and sagittal reconstructions have been obtained. 3-D reconstructions have been obtained. Low dose protocols were performed. One or more of the following dose reduction techniques were used; automated exposure control, adjustment of the mA and/or KV according to patient size, use of iterative reconstruction technique. Findings: Axial sections demonstrate intact base of the skull. C1 exhibit satisfactory relationship to the odontoid. No acute cervical vertebral body fracture seen. Alignment posterior spinous processes satisfactory. Impression: No acute cervical fracture. Dictated By: Zach Masters MD Signed By: <Electronically signed by Zach Masters MD in OV> 08/04/25 2257 [facility] Report Signed Patient: KOLBY RON [email or web address]. Record#: [id number] Birthdate: 1980 Age/Sex: 44 / M Location: [facility] Attending Dr: Ordering Physician: Surendra Oliveira NP Date of Service: 08/04/25 Procedure(s): CT head/brain wo con Accession Number(s): [id number] cc: Cezar Adams MD; Surendra Oliveira NP; Zach Masters MD~ Examination: CT brain head without contrast. 2-D sagittal coronal reconstructions Date and time of exam:August 03, 2025, 1147 hrs. Indications: Ground-level fall today with injury to the head, head pain altered mental status CTDI: vol (mGy):49.5 DLP: (mGycm):1001 Technique: Multiple CT axial sections of the brain have been obtained, 5 mm slice thickness. Contrast has not been administered. 2-D sagittal, coronal reconstructions have been obtained Low dose protocols were performed. One or more of the following dose reduction techniques were used; automated exposure control, adjustment of the mA and/or KV according to patient size, use of iterative reconstruction technique. Findings: No significant ventricular enlargement. Intra-axial or extra-axial hemorrhage density is not seen. No mass effect or midline shift Basal cisterns are not remarkable. Fourth ventricle is midline. Cranial vault intact. Impression: Negative for acute hemorrhage, mass effect or midline shift Dictated By: Zach Masters MD Signed By: <Electronically signed by Zach Masters MD in OV> 08/04/25 2301 [facility] Report Signed Patient: KOLBY RON. Record#: [id number] Birthdate: 1980 Age/Sex: 44 / M Location: [facility] Attending Dr: Ordering Physician: Surendra Oliveira NP Date of Service: 08/04/25 Procedure(s): CT facial bones wo con Accession Number(s): [id number] cc: Cezar Adams MD; Surendra Oliveira NP; Zach Masters MD~ Examination: CT maxillofacial, without intravenous contrast. 2-D sagittal reconstructions. 3-D reconstructions. Date and time of exam:August 04, 2025, 10:31 PM Indications: Ground-level fall today with injury to the face, facial pain CTDI: vol (mGy):22.7 DLP: (mGycm):468 Technique: Multiple axial images of maxillofacial region, 3.0 mm slice thickness. 2-D sagittal and coronal reconstructions. 3-D reconstructions. Low dose protocols were performed. One or more of the following dose reduction techniques were used; automated exposure control, adjustment of the mA and/or KV according to patient size, use of iterative reconstruction technique. Findings: Frontal bone frontal sinuses intact Orbital rims intact No nasal bone fracture No depression zygomatic arches. Pterygoid plates maxilla and the mandible intact. Impression: No acute facial fracture Dictated By: Zach Masters MD Signed By: <Electronically signed by Zach Masters MD in OV> 08/04/25 2259 <Jerel Vallejo, DO - Last Filed: 08/04/25 23:15> Addendum Narrative: 2300: Care assumed from Surendra Oliveira NP. Past medical, surgical, social and family history reviewed. Vitals and home medications reviewed. Results and treatment plan discussed. I will assume the care of the patient at this time and will follow the patient. Please refer to the emergency department record for history and examination from initial visit. RADIOLOGY RESULTS: [facility] Report Signed Patient: KOLBY RON. Record#: [id number] Birthdate: 1980 Age/Sex: 44 / M Location: [facility] Attending Dr: Ordering Physician: Surendra Oliveira NP Date of Service: 08/04/25 Procedure(s): CT cervical spine wo con Accession Number(s): [id number] cc: Cezar Adams MD; Surendra Oliveira NP; Zach Masters MD~ Examination: CT cervical spine without contrast 2-D sagittal reconstructions 2-D coronal reconstructions 3-D reconstructions. Exam date and time:July, 1031 hrs. Indications: Ground-level fall today with injury to the neck, neck pain CTDI:vol (mGy) 14.6 DLP: (mGycm) 303 Technique: Multiple 2 mm axial sections of the cervical spine have been obtained. The coronal and sagittal reconstructions have been obtained. 3-D reconstructions have been obtained. Low dose protocols were performed. One or more of the following dose reduction techniques were used; automated exposure control, adjustment of the mA and/or KV according to patient size, use of iterative reconstruction technique. Findings: Axial sections demonstrate intact base of the skull. C1 exhibit satisfactory relationship to the odontoid. No acute cervical vertebral body fracture seen. Alignment posterior spinous processes satisfactory. Impression: No acute cervical fracture. Dictated By: Zach Masters MD Signed By: <Electronically signed by Zach Masters MD in OV> 08/04/25 2257 [facility] Report Signed Patient: KOLBY RON Record#: [id number] Birthdate: 1980 Age/Sex: 44 / M Location: [facility] Attending Dr: Ordering Physician: Surendra Oliveira NP Date of Service: 08/04/25 Procedure(s): CT head/brain wo con Accession Number(s): [id number] cc: Cezar Adams MD; Surendra Oliveira NP; Zach Masters MD~ Examination: CT brain head without contrast. 2-D sagittal coronal reconstructions Date and time of exam:August 03, 2025, 1147 hrs. Indications: Ground-level fall today with injury to the head, head pain altered mental status CTDI: vol (mGy):49.5 DLP: (mGycm):1001 Technique: Multiple CT axial sections of the brain have been obtained, 5 mm slice thickness. Contrast has not been administered. 2-D sagittal, coronal reconstructions have been obtained Low dose protocols were performed. One or more of the following dose reduction techniques were used; automated exposure control, adjustment of the mA and/or KV according to patient size, use of iterative reconstruction technique. Findings: No significant ventricular enlargement. Intra-axial or extra-axial hemorrhage density is not seen. No mass effect or midline shift Basal cisterns are not remarkable. Fourth ventricle is midline. Cranial vault intact. Impression: Negative for acute hemorrhage, mass effect or midline shift Dictated By: Zach Masters MD Signed By: <Electronically signed by Zach Masters MD in OV> 08/04/25 2301 [facility] Report Signed Patient: KOLBY RON Record#: [id number] Birthdate: 1980 Age/Sex: 44 / M Location: [facility] Attending Dr: Ordering Physician: Surendra Oilveira NP Date of Service: 08/04/25 Procedure(s): CT facial bones wo con Accession Number(s): [id number] cc: Cezar Adams MD; Surendra Oliveira NP; Zach Masters MD~ Examination: CT maxillofacial, without intravenous contrast. 2-D sagittal reconstructions. 3-D reconstructions. Date and time of exam:August 04, 2025, 10:31 PM Indications: Ground-level fall today with injury to the face, facial pain CTDI: vol (mGy):22.7 DLP: (mGycm):468 Technique: Multiple axial images of maxillofacial region, 3.0 mm slice thickness. 2-D sagittal and coronal reconstructions. 3-D reconstructions. Low dose protocols were performed. One or more of the following dose reduction techniques were used; automated exposure control, adjustment of the mA and/or KV according to patient size, use of iterative reconstruction technique. Findings: Frontal bone frontal sinuses intact Orbital rims intact No nasal bone fracture No depression zygomatic arches. Pterygoid plates maxilla and the mandible intact. Impression: No acute facial fracture Dictated By: Zach Masters MD Signed By: <Electronically signed by Zach Masters MD in OV> 08/04/25 6092 Case was signed out to me awaiting CT results. CT of the head cervical spine and facial bones show no abnormality. Patient will be discharged once ambulatory.
[2025-08-05 02:00] VITALS: BP 108/82; PULSE 92; O2SAT 100
--- NOTE | 2025-08-05 02:48 | PC.NURSE ---
WE HAD DOWN TIME FROM [id number].
[2025-08-05 04:00] VITALS: BP 116/81; PULSE 95; O2SAT 99
--- NOTE | 2025-08-16 22:19 | PD.EDADULT ---
ED General RME/HPI General Chief complaint: Alcohol Stated complaint: ALCOHOL Time Seen by Provider: 08/04/25 21:41 Arrival date/time: 08/04/25 21:05 Related Data Home Medications ?Medication ?Instructions ?Recorded ?Confirmed acamprosate 333 mg tablet,delayed 333 mg PO QDAY 08/07/25 08/07/25 release ascorbic acid (vitamin C) 250 mg 250 mg PO QDAY 08/07/25 08/07/25 tablet ferrous sulfate 325 mg (65 mg 325 mg PO QDAY 08/07/25 08/07/25 iron) tablet gabapentin 400 mg capsule 400 mg PO Q8HR PRN shakes 08/07/25 08/07/25 Previous Rx's ?Medication ?Instructions ?Recorded thiamine mononitrate (vit B1) 100 100 mg PO QDAY #30 tabs 04/02/25 mg tablet carvedilol 3.125 mg tablet 3.125 mg PO BIDWM #60 tabs 06/28/25 folic acid 1 mg tablet 1 mg PO QDAY #60 tabs 06/28/25 pantoprazole 40 mg tablet,delayed 40 mg PO QDAY #90 tabs 06/28/25 release Allergies Allergy/AdvReac Type Severity Reaction Status Date / Time No Known Allergies Allergy Verified 08/16/25 18:33 Course Quality Measures none Orders Category Date Time Status CT cervical spine wo con Stat Exams 08/04/25 21:[address] facial bones wo con Stat Exams 08/04/25 21:[address] head/brain wo con Stat Exams 08/04/25 21:43 Completed Vital Signs Vital signs: Vital Signs Temperature 98.0 F 08/04/25 21:19 Pulse Rate 100 08/04/25 21:19 Respiratory Rate 12 08/04/25 21:19 Blood Pressure 114/78 08/04/25 21:19 Pulse Oximetry (%) 96 08/04/25 21:19 Oxygen Delivery Method Room Air 08/04/25 21:19 Discharge Plan Plan Patient Disposition: HOME (Self Care) Prescriptions/Referrals Prescriptions/Med Rec: No Action carvedilol 3.125 mg Tablet 3.125 mg PO BIDWM Qty: 60 1RF folic acid 1 mg Tablet 1 mg PO QDAY Qty: 60 0RF pantoprazole 40 mg tablet,delayed release (DR/EC) 40 mg PO QDAY Qty: 90 0RF thiamine mononitrate (vit B1) 100 mg Tablet 100 mg PO QDAY Qty: 30 0RF gabapentin 400 mg capsule 400 mg PO Q8HR PRN (Reason: shakes) Patient Comments: TOME 1 C PSULA POR V A ORAL CADA OCHO HORAS CUANDO SEA NECESARIO FOR SHAKES FROM ALCOHOL WITHDRAWAL ferrous sulfate 325 mg (65 mg iron) tablet 325 mg PO QDAY Patient Comments: TOME 1 TABLETA POR V A ORAL TODOS LOS D ascorbic acid (vitamin C) 250 mg tablet 250 mg PO QDAY Patient Comments: TOME 1 TABLETA POR V A ORAL TODOS LOS D FOR 30 DAYS acamprosate 333 mg tablet,delayed release (DR/EC) 333 mg PO QDAY Patient Comments: TOME DOS TABLETAS POR V A ORAL DOS VECES AL D A Referrals: Cezar Adams MD [Primary Care Provider, Family Practice] - In 1 week Problem List Clinical Impression: Alcohol intoxication, Fall, Facial trauma Patient/Caregiver Discharge Instructions Education Materials: ED Alcohol Intoxication Additional Instructions: Decrease your consumption of alcohol. Print Language: Emirati Stand Alone Forms: Kallie Award Info., Patient Portal Info Letter PA/SAP DIRECTOR Supervising Physician PA/SAP DIRECTOR Supervising Physician: Surendra Oliveira ENP
== END 2025-08-05 05:57 | disposition home or self-care (01) ==
PROVIDERS: Emergency Provider Emergency Medicine; PCP Family Medicine
DX: F10.129 Alcohol abuse with intoxication, unspecified (principal); S09.93XA Unspecified injury of face, initial encounter; W18.30XA Fall on same level, unspecified, initial encounter
CPT/HCPCS: 70450; 70486; 72125; 99284

== ENCOUNTER 2025-08-06 11:24 | Inpatient (IN) | payer MEDICAID, SELFPAY ==
[2025-08-06] VITALS (11 sets, daily range): BP systolic 98–123; BP diastolic 65–91; PULSE 90–113; RESP 14–19; TEMP 36.9–37.4; O2SAT 98–100; BMI 26.6
--- NOTE | 2025-08-06 12:39 | XR_ITS ---
Examination: AP chest single view Technique one AP portable upright chest single view Date and time: August 06, 2025, 1254 hours, comparison June 23, 2025 INDICATIONS: Difficulty breathing today. FINDINGS: Poor inspiratory effort Mild enlargement cardiac contour Mild vascular congestion. Minor atelectasis in the left lower lobe. Old right-sided rib fractures IMPRESSION: Poor inspiratory effort chest x-ray
--- NOTE | 2025-08-06 12:40 | XR_ITS ---
Examination: CT brain head without contrast. 2-D sagittal coronal reconstructions Date and time of exam:August 06, 2025, 1359 hours, comparison 08/04/2025 INDICATIONS: Generalized head pain today CTDI: vol (mGy):8.9 DLP: (mGycm):1018 Technique: Multiple CT axial sections of the brain have been obtained, 5 mm slice thickness. Contrast has not been administered. 2-D sagittal, coronal reconstructions have been obtained Low dose protocols were performed. One or more of the following dose reduction techniques were used; automated exposure control, adjustment of the mA and/or KV according to patient size, use of iterative reconstruction technique. Findings: No significant ventricular enlargement. Intra-axial or extra-axial hemorrhage density is not seen. No mass effect or midline shift Basal cisterns are not remarkable. Fourth ventricle is midline. Cranial vault intact. Impression: Negative for acute hemorrhage, mass effect or midline shift Advise clinical correlation follow-up accordingly
--- NOTE | 2025-08-06 12:40 | EKG_ITS ---
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
--- NOTE | 2025-08-06 12:40 | PD.EDHA ---
ED Headache RME/HPI General Chief Complaint: Headache Stated Complaint: HEADACHE, CHEST WALL PAIN Time Seen by Provider: 08/06/25 12:30 Arrival date/time: 08/06/25 11:24 RME / HPI RME / HPI Narrative: 44-year-old male patient homeless, with significant history of chronic alcoholism, history of upper GI bleed, came in for evaluation regarding headache. Patient came in asking for help regarding headache, and intoxicated with alcohol also. Patient told me that this morning he consumed 2 tall cans of beer. Patient also complained of headache described as dull ache severity moderate. Patient is able to answer simple question however will go back to sleep due to intoxication. Denies any chest pain abdominal pain vomiting blood or blood in the stool. He had multiple medication however patient is not taking his medications. He had a medication for Coreg, folic acid Protonix vitamin B1 vitamin C and gabapentin. Patient is needing assistance for ambulation. Related Data Previous Rx's ?Medication ?Instructions ?Recorded thiamine mononitrate (vit B1) 100 100 mg PO QDAY #30 tabs 04/02/25 mg tablet carvedilol 3.125 mg tablet 3.125 mg PO BIDWM #60 tabs 06/28/25 folic acid 1 mg tablet 1 mg PO QDAY #60 tabs 06/28/25 pantoprazole 40 mg tablet,delayed 40 mg PO QDAY #90 tabs 06/28/25 release Allergies Allergy/AdvReac Type Severity Reaction Status Date / Time No Known Allergies Allergy Verified 08/06/25 11:27 Review of Systems Review of Systems Narrative Review of Systems: Review of system reviewed and within normal limits except mentioned in HPI ED Exam Narrative Physical exam: VITAL SIGNS: Reviewed. GENERAL APPEARANCE: Alert and interactive, however drowsy, follows simple commands, no acute distress, intoxicated, unkept, HEAD AND FACE: Non-traumatic. ENT: PERRL, pale conjunctiva, eyelid no trauma, Mucous membrane moist. NECK: Supple, nontender, no nuchal rigidity. CHEST: No tenderness, no crepitus, no paradoxical movement, no retractions. LUNGS: Clear, well ventilated, symmetric, no rales, no wheezing, no ronchi, no stridor, good breath sounds bilaterally. HEART: Regular rate, regular rhythm, no murmur, no gallops. ABDOMEN: Soft, positive bowel sounds, nondistended, no guarding, nontender, no rebound, no masses, RECTAL: Deferred. GENITAL: Deferred. NEUROLOGICAL: Gross motor function intact sensory function intact, Appropriate for age. MUSCULOSKELETAL: low back nontender, full range of motion. EXTREMITIES: Nontender, full range of motion. SKIN: Color pale, dry, no rash, no lacerations, no abrasions, no contusions. LYMPHATICS: Deferred. Course Quality Measures none Orders Category Date Time Status COVID-19 Screening Questionnaire NOW Care 08/06/25 22:02 Active Decision to Admit X1 Care 08/06/25 22:02 Active EKG (ED ONLY) *Do not use* NOW Care 08/06/25 12:40 Completed Occult Blood,Stool (Nursing) ONCE Care 08/06/25 16:34 Active Transfuse,blood/blood products ONCE Care 08/06/25 16:[address] head/brain wo con Stat Exams 08/06/25 12:40 Completed EKG (ED Only) Stat Exams 08/06/25 12:40 Draft XR chest 1V Stat Exams 08/06/25 12:39 Completed Alcohol, Blood Medical Stat Lab 08/06/25 13:25 Completed B-Type Natriuretic Peptide Stat Lab 08/06/25 13:25 Completed CBC Stat Lab 08/06/25 13:25 Completed Comprehensive Metabolic Panel Stat Lab 08/06/25 13:25 Completed Drug Screen,Urine Stat Lab 08/06/25 15:46 Completed Magnesium Stat Lab 08/06/25 13:25 Completed PLATELETS [Pheresis Platelets] Stat Lab 08/06/25 17:18 Completed Partial Thromboplastin Time Stat Lab 08/06/25 13:25 Completed Prothrombin Time with INR Stat Lab 08/06/25 13:25 Completed Type and Screen Stat Lab 08/06/25 17:18 Completed Urinalysis, C/S if Indicated Stat Lab 08/06/25 15:46 Completed prbc [Red Blood Cells] Stat Lab 08/06/25 17:18 Completed DiphenhydrAMINE INJ [Benadryl Inj] Med 08/06/25 21:57 Discontinued 25 mg IVP X1 ONE Magnesium Sulfate 1 gm Ivpb [Magnesium Sulfate Ivpb] Med 08/06/25 14:29 Discontinued 1 gm in 100 ml IV X1 PHENobarbital Inj 130 mg Med 08/06/25 21:57 Discontinued Sodium Chloride 0.9% Flush [NS Flush] 12 ml IVP X1 Potassium Chloride [K-Dur] Med 08/06/25 14:29 Discontinued 40 meq PO X1 ONE Ringers Lactated 1000 ml [Lactated Ringers] 1,000 ml Med 08/06/25 12:39 Discontinued IV 999 mls/hr Thiamine Inj [Vitamin B-1 Inj] 100 mg Med 08/06/25 21:58 Active Sodium Chloride 0.9% [Ns] 100 ml IV X1 Vital Signs Vital signs: Vital Signs Temperature 99.3 F 08/06/25 11:59 Pulse Rate 113 H 08/06/25 11:59 Respiratory Rate 19 08/06/25 11:59 Blood Pressure 113/69 08/06/25 11:59 Pulse Oximetry (%) 98 08/06/25 11:59 Oxygen Delivery Method Room Air 08/06/25 11:59 Headache MDM Narrative MDM Narrative:: 44-year-old male patient homeless, with significant history of chronic alcoholism, history of upper GI bleed, came in for evaluation regarding headache. Patient came in asking for help regarding headache, and intoxicated with alcohol also. Patient told me that this morning he consumed 2 tall cans of beer. Patient also complained of headache described as dull ache severity moderate. Patient is able to answer simple question however will go back to sleep due to intoxication. Denies any chest pain abdominal pain vomiting blood or blood in the stool. He had multiple medication however patient is not taking his medications. He had a medication for Coreg, folic acid Protonix vitamin B1 vitamin C and gabapentin. Patient is needing assistance for ambulation. Patient's hemoglobin was noted to be 7.67, hematocrit 22.9 platelet of 9. Patient alcohol level today was noted to be 489. Total bili 3.6 AST of 92 alkaline phos of [address] scan of the head is negative for acute pathology. Patient received potassium replacement magnesium sulfate, 1 unit of packed RBC and platelets. Initially was planning to discharge the patient however patient developed alcohol withdrawal symptoms been complaining of anxiety-like symptoms, jittery, tremors, sweaty, and headache. CIWA score was noted to be 19 Patient was started on phenobarbital IV, and Benadryl. Discussed the case with hospitalist, who admitted the patient Patient data External records reviewed:: None Clinical information provided by:: patient Social determinants that could affect healthcare access:: alcohol use Patient has the following chronic illnesses:: Homelessness How is presenting disease/condition affected by chronic disease/condition?: exacerbated by Evaluation data The following diagnostics were reviewed and interpreted by me:: lab results and radiology exam(s) Lab and/or radiology exams considered but not ordered:: None Interpretation Summary: See results [facility] Medications / Prescriptions Medications or Prescriptions considered but not ordered:: None Medication administrations:: Medication Administration History Thiamine HCl 100 mg/ Sodium (Chloride) 101 mls @ 202 mls/hr IV X1 ONE Stop: 08/06/25 22:27 Discontinued Medications Phenobarbital Sodium 130 mg/ (Sodium Chloride 12 ml) 0 mg IVP X1 ONE Stop: 08/06/25 21:58 Diphenhydramine HCl (Diphenhydramine Inj 50 Mg/Ml Vial) 25 mg IVP X1 ONE Stop: 08/06/25 21:58 Lactated Ringer's (Lactated Ringers) 1,000 mls @ 999 mls/hr IV .Q1H1M ONE Stop: 08/06/25 13:39 Last Infusion: 08/06/25 15:17 Dose: Infused Documented By: Admin: 08/06/25 13:37 Dose: 999 mls/hr Documented By: REBECCA Magnesium Sulfate/Dextrose (Magnesium Sulfate Ivpb) 1 gm in 100 mls @ 100 mls/hr IV X1 ONE Stop: 08/06/25 15:28 Last Infusion: 08/06/25 16:19 Dose: Infused Documented By: Admin: 08/06/25 15:19 Dose: 100 mls/hr Documented By: CARLOS Potassium Chloride (Potassium Chloride 20 Meq Tabcr) 40 meq PO X1 ONE Stop: 08/06/25 14:30 Last Admin: 08/06/25 15:21 Dose: 40 meq Documented By: CARLOS See [facility] Consultations Consultation(s) initiated? (list below): No Diagnosis Differential diagnosis headache: migraine, headache and other (Alcohol withdrawal, pancytopenia) Most likely diagnosis given after review of the tests above:: Alcohol withdrawal, pancytopenia Admission Indicated Admission indicated?: indicated Explain why admission is indicated or not indicated:: Patient is to be admitted for alcohol withdrawal symptoms Admission Request Was there a request for admission?: No Disposition Plan Disposition Plan: Admit Discharge Plan Plan Patient Disposition: Admit Acute Care w/in Hospital Discharge Disposition comment: Stable Prescriptions/Referrals Prescriptions/Med Rec: No Action carvedilol 3.125 mg Tablet 3.125 mg PO BIDWM Qty: 60 1RF folic acid 1 mg Tablet 1 mg PO QDAY Qty: 60 0RF pantoprazole 40 mg tablet,delayed release (DR/EC) 40 mg PO QDAY Qty: 90 0RF thiamine mononitrate (vit B1) 100 mg Tablet 100 mg PO QDAY Qty: 30 0RF Referrals: Cezar Adams MD [Primary Care Provider, Family Practice] - In 1 week Problem List Clinical Impression: Alcohol withdrawal, Pancytopenia Patient/Caregiver Discharge Instructions Print Language: Cam[place]onian Stand Alone Forms: [facility]allie Award Info., Patient Portal Info Letter
[2025-08-06] MEDS: RINGERS LACTATED 1000 ML 1,000 ML 999 ML IV (13:37)
[2025-08-06 13:43] LABS: Basophils # (Auto) 0.0 Thou/mm3 (0.0-0.2); Basophils % (Auto) 1 % (0-2.5); Eosinophils # (Auto) 0.1 Thou/mm3 (0.0-0.5); Eosinophils % (Auto) 2 % (0-10); Hematocrit 22.9 % (41.0-53.0); Immature Granulocytes Auto 0.02 Thou/mm3 (0.00-0.00); Lymphocytes # (Auto) 0.8 Thou/mm3 (1.0-4.8); Lymphocytes % (Auto) 25 % (10-50); Mean Corpuscular HGB Conc 33.6 g/dl (31.0-37.0); Mean Corpuscular Hemoglobin 28.9 pg (25.0-35.0); Mean Corpuscular Volume 86 fL (80-100); Monocytes # (Auto) 0.3 Thou/mm3 (0.0-0.8); Monocytes % (Auto) 7 % (0-12); Neutrophils # (Auto) 2.2 Thou/mm3 (1.8-7.7); Neutrophils % (Auto) 65 % (37-80); Nucleated Red Blood Cell # 0.02 Thou/mm3 (0.00-0.00); Nucleated Red Blood Cell % 1 /100 WBC (0); RDW Standard Deviation 68.0 fL (35.1-43.9); Red Blood Count 2.66 Miln/mm3 (4.50-5.90); White Blood Count 3.4 Thou/mm3 (3.8-10.6)
[2025-08-06 13:53] LABS: INR 1.5 (0.9-1.3); Partial Thromboplastin Time 35.5 Seconds (22.0-36.0); Prothrombin Time 15.7 Seconds (9.0-12.2)
[2025-08-06 13:58] LABS: Hemoglobin 7.7 g/dL (13.5-16.0); Platelet Count 9 Thou/mm3 (140-440)
[2025-08-06 14:00] LABS: B-Type Natriuretic Peptide 87 pg/mL (0-100)
[2025-08-06 14:07] LABS: Alanine Aminotransferase 14 U/L (10-49); Albumin, Serum 3.5 gm/dL (3.5-5.0); Albumin/Globulin Ratio 0.9 (1.2-2.2); Alkaline Phosphatase 156 U/L (46-116); Anion Gap 13 (7-16); Aspartate Amino Transferase 92 U/L (0-34); BUN/Creatinine Ratio 8 Ratio (12-20); Bilirubin,Total 3.6 mg/dL (0.3-1.2); Blood Urea Nitrogen < 5 mg/dL (9-23); Calcium 7.8 mg/dL (8.3-10.6); Calcium (Corrected) 8.2 mg/dL (8.5-10.1); Carbon Dioxide 24.8 mMol/L (20.0-31.0); Chloride 101 mMol/L (98-107); Creatinine (Component) 0.6 mg/dL (0.6-1.3); Globulin 3.7 gm/dL (2.3-3.5); Glucose 110 mg/dL (74-106); Magnesium 1.4 mg/dL (1.6-2.6); Osmolality,Calculated 275 (275-295); Potassium 3.3 mMol/L (3.4-5.1); Sodium 139 mMol/L (136-145); Total Protein 7.2 gm/dL (5.7-8.2); eGFR > 60 See Note
[2025-08-06 14:09] LABS: Alcohol, Blood Medical 489.9 mg/dL (0-10.0)
[2025-08-06 14:24] LABS: Slide Review Platelets confirmed
[2025-08-06 15:54] LABS: Collection Type, Urine Clean Catch; Squamous Epithelial Cell,Urine 0 /hpf (0-5)
[2025-08-06 16:07] LABS: Amphetamine/Methamp Scrn,U Negative (Negative); Barbiturate Screen,Urine Negative (Negative); Benzodiazepines Screen,Urine Negative (Negative); Benzoylecgonine Screen, Ur Negative (Negative); Fentanyl Screen,Urine Negative (Negative); Opiate Screen,Urine Negative (Negative); THC Screen,Urine Negative (Negative)
[2025-08-06 16:40] LABS: Bacteria,Urine Rare; Bilirubin,Urine Negative (Negative); Blood,Urine Negative (Negative); Clarity,Urine Clear (Clear/Hazy); Color,Urine Lt-Yellow (Lt Yel-Yel); Culture Indicated,Urine Not Indicated; Glucose, Urine Negative (Negative); Ketones,Urine Negative (Negative); Leukocyte Esterase,Urine Negative (Negative); Nitrite,Urine Negative (Negative); PH,Urine 6.5 (5.0-7.0); Protein,Urine Negative (Neg - Trace); RBC,Urine 1 /hpf (0-3); Specific Gravity,Urine 1.005 (1.001-1.035); Urobilinogen,Urine Negative mg/dL (0.0-1.0); WBC,Urine < 1 /hpf (0-5)
[2025-08-06] MEDS: PHENobarbital Inj 130 MG, SODIUM CHLORIDE 0.9% FLUSH 12 ML IVP (22:13)
[2025-08-06] MEDS: THIAMINE INJ 100 MG in SODIUM CHLORIDE 0.9% 100 ML 202 MG IV (22:19)
--- NOTE | 2025-08-06 22:53 | PD.RESHP ---
Documentation for date of: 08/06/25 HPI History of Present Illness History of present illness: Mr Wells is a 44 y/o [place]ian-speaking male with PMHx of EtOH induced cirrhosis c/b varices, anemia, upper GI bleed, and homelessness who presented to the ED on 08/06 with headache after a mechanical fall while intoxicated. Drank 2 tall beers morning of 08/06, denies recreational drug use. Initially, patient was intoxicated in ED. While in the ED he began scoring on CIWA (19, 20). Reports nausea w/o vomiting, epigastric pain, anxiety, sweating, tactile hallucinations, tremor, agitation, headache. He reports one dark stool yesterday but denies melena, hematochezia, hematemesis, vomiting, chest pain/pressure, difficulty with urination, or auditory/visual hallucinations. Admitted for EtOH withdrawal scoring on CIWA protocol. ED course: VS significant for tachycardia to 104. Labs significant for EtOH 489, leukopenia 3.4, normocytic anemia 7.7, thrombocytopenia 9. Hypokalemia 3.3, hypomagnesemia 1.4. PT and INR elevated. Hypocalcemia 7.8, transaminitis AST 92, alk phos 156, elevated total bili 3.6. UDS negative. EKG showed NSR, HR 90, QTc 478. CT head unremarkable. CXR unremarkable. Initially intoxicated --> started scoring on CIWA (19, 20) Given 1L LR, Mg repletion, K repletion, phenobarbital 130 mg IV x1, benadryl IV 25 mg x1, thiamine 100 mg IV x1. PMHx: EtOH induced cirrhosis, splenomegaly, upper GI bleed 2/2 bleeding esophageal varices Allergies: NKDA Home meds: pending med rec SgHx: none SHx: homeless, staying in intermediate. Drinks 2-3 tall beers per day. Per chart review: Reports quitting smoking over 10 years ago. Hx of crystal meth use, quit 8 years ago. FHx: none reported Review of Systems Review of Systems Narrative Review of Systems: ROS negative other than HPI Exam Vital Signs Temp Pulse Resp BP Pulse Ox O2 Del Method 98.8 F 92 18 117/91 H 100 Room Air 08/06/25 22:01 08/06/25 22:30 08/06/25 22:30 08/06/25 22:30 08/06/25 22:30 08/06/25 22:30 Narrative Exam General: No acute distress Eye: PERRL, EOMI, normal conjunctiva, no scleral icterus HENT: Normocephalic, atraumatic, normal hearing, moist oral mucosa Neck: Supple, non-tender, no JVD, no lymphadenopathy Lungs: Clear to auscultation bilaterally, non-labored respirations, symmetric chest rise, no use of accessory muscles Heart: Normal S1 and S2, no S3 or S4 appreciated. Normal rate and regular rhythm, no murmurs, rubs gallops, or edema. Peripheral pulses intact bilaterally, capillary refill brisk distally Abdomen: Distended, firm and tense, limited shifting dullness Musculoskeletal: Normal range of motion and strength, no tenderness or swelling Skin: Skin is warm, dry, no rashes or lesions. Neurologic: Alert, awake and oriented x2. CN II-XII grossly intact. Asterixis of b/l upper extremities Psychiatric: Cooperative, appropriate mood and affect Results: Labs 08/07/25 05:23 08/07/25 05:23 Labs: Short CBC 08/06/25 Range/Units 13:25 WBC 3.4 L (3.8-10.6) Thou/mm3 Hgb 7.7 L (13.5-16.0) g/dL Hct 22.9 L (41.0-53.0) % Plt Count 9 L* D (140-440) Thou/mm3 BMP 08/06/25 13:25 Sodium 139 Potassium 3.3 L Chloride 101 Carbon Dioxide 24.8 BUN < 5 L Creatinine 0.6 Glucose 110 H Calcium 7.8 L Liver Function 08/06/25 Range/Units 13:25 Total Bilirubin 3.6 H (0.3-1.2) mg/dL AST 92 H (0-34) U/L ALT 14 (10-49) U/L Alkaline Phosphatase 156 H (46-116) U/L Albumin 3.5 (3.5-5.0) gm/dL Urine 08/06/25 Range/Units 15:46 Urine Color Lt-Yellow (Lt Yel-Yel) Urine Clarity Clear (Clear/Hazy) Urine pH 6.5 (5.0-7.0) Ur Specific [place] 1.005 (1.001-1.035) Urine Protein Negative (Neg - Trace) Urine Glucose (UA) Negative (Negative) Quality Measures Quality Measures VTE prophylaxis Medications Home Medications and Allergies Home Medications ?Medication ?Instructions ?Recorded ?Confirmed ?Type acamprosate 333 mg tablet,delayed 333 mg PO QDAY 08/07/25 08/07/25 History release ascorbic acid (vitamin C) 250 mg 250 mg PO QDAY 08/07/25 08/07/25 History tablet ferrous sulfate 325 mg (65 mg 325 mg PO QDAY 08/07/25 08/07/25 History iron) tablet gabapentin 400 mg capsule 400 mg PO Q8HR PRN shakes 08/07/25 08/07/25 History Allergies Allergy/AdvReac Type Severity Reaction Status Date / Time No Known Allergies Allergy Verified 08/06/25 11:27 Visit Medications Folic Acid (Folic Acid 1 Mg Tablet) 1 mg PO QDAY BRANDI Stop: 09/06/25 08:59 Lorazepam (Lorazepam 0.5 Mg Tablet) 1 mg PO Q4HR PRN PRN Reason: CIWA Score 8-15 Stop: 08/11/25 22:43 Lorazepam (Lorazepam 0.5 Mg Tablet) 2 mg PO Q4HR PRN PRN Reason: CIWA SCORE 16-20 Stop: 08/11/25 22:43 Lorazepam (Lorazepam 0.5 Mg Tablet) 4 mg PO Q4HR PRN PRN Reason: CIWA SCORE >20 Stop: 08/11/25 22:43 Lorazepam (Lorazepam 0.5 Mg Tablet) 2 mg PO X1 ONE Stop: 08/06/25 22:51 Ondansetron HCl (Ondansetron Inj 2 Mg/Ml Inj 2 Ml) 4 mg IVP Q6H PRN; Protocol PRN Reason: NAUSEA OR VOMITING Stop: 09/05/25 22:33 Pantoprazole Sodium (Pantoprazole 40 Mg Tablet) 40 mg PO QDAY BRANDI Stop: 09/06/25 08:59 Thiamine HCl (Thiamine 100 Mg Tablet) 100 mg PO DAILY BRANDI Stop: 09/06/25 08:59 Discontinued Medications Phenobarbital Sodium 130 mg/ (Sodium Chloride 12 ml) 0 mg IVP X1 ONE Stop: 08/06/25 21:58 Last Admin: 08/06/25 22:13 Dose: 130 mg Diphenhydramine HCl (Diphenhydramine Inj 50 Mg/Ml Vial) 25 mg IVP X1 ONE Stop: 08/06/25 21:58 Last Admin: 08/06/25 22:10 Dose: 25 mg Lactated Ringer's (Lactated Ringers) 1,000 mls @ 999 mls/hr IV .Q1H1M ONE Stop: 08/06/25 13:39 Last Infusion: 08/06/25 15:17 Dose: Infused Magnesium Sulfate/Dextrose (Magnesium Sulfate Ivpb) 1 gm in 100 mls @ 100 mls/hr IV X1 ONE Stop: 08/06/25 15:28 Last Infusion: 08/06/25 16:19 Dose: Infused Thiamine HCl 100 mg/ Sodium (Chloride) 101 mls @ 202 mls/hr IV X1 ONE Stop: 08/06/25 22:27 Last Admin: 08/06/25 22:19 Dose: 202 mls/hr Ibuprofen (Ibuprofen Tab 400 Mg Tablet) 400 mg PO Q6HR PRN PRN Reason: Fever > 100.3 Stop: 09/05/25 22:33 Ibuprofen (Ibuprofen Tab 600 Mg Tablet) 600 mg PO Q6H PRN PRN Reason: PAIN SCALE 1-3 (mild Stop: 09/05/25 22:33 Potassium Chloride (Potassium Chloride 20 Meq Tabcr) 40 meq PO X1 ONE Stop: 08/06/25 14:30 Last Admin: 08/06/25 15:21 Dose: 40 meq Assessment & Plan Plan Mr Wells is a 44 y/o [place]-speaking male with PMHx of EtOH induced cirrhosis c/b varices, anemia, upper GI bleed, and homelessness who presented to the ED on 08/06 with headache after a mechanical fall while intoxicated. Admitted for EtOH withdrawal scoring on CIWA protocol. #EtOH withdrawal Scoring 19, 20 Given Phenobarbital IV in ED Plan: - CIWA w/ Ativan per protocol #Hepatic encephalopathy #EtOH induced end-stage liver disease #Cirrhosis #Thrombocytopenia Has hx of bleeding variceal hemorrhages, decreased synthetic liver dysfunction, elevated total bili (chronic) No s/sx of active GI bleed Asterixis, abdominal distension present Given 1U RBC and 1U plt in ED MELD-Na: 16 --> <2% estimated 90-day mortality Plan: - Daily CBC, CMP, Mg, Phos - Pantoprazole 40 mg PO daily - Carvedilol 3.125 mg PO BID to reduce portal HTN - Thiamine 100 mg PO daily - Folic acid 1 mg PO daily - Lactulose 20 grams PO TID - Avoid hepatotoxic medications #Pancytopenia i/s/o ESRD Given 1U pRBC and 1U plt in ED Plan: - Daily CBC - Transfuse RBC if hgb <7 - Transfuse platelets if plt <10,000 to prevent spontaneous hemorrhage #Electrolyte disturbances Plan: - Replete PRN Checklist Dispo: Admit tele for CIWA, Pending resolution of withdrawal Diet: hepatic 2gm sodium, 50g protein Bowel Reg: Lactulose 20 g PO TID VTE ppx: SCD (given low plt) GI ppx: Pantoprazole 40 mg PO daily Pain mgmt: Ibuprofen PRN Code status: Full Plan discussed with Dr. Rivera and Dr. Rocio Cruz MD PGY1 Attending Provider Attestation/Addendum After examination of the patient and review of the clinical data I feel that this patient needs admission to the hospital for further treatment/evaluation. Plan of care discussed with patient and is in agreement. I Naz Chan MD, attest that I was physically present for pond portions of evaluation, and examined patient, labs and imagings and plan of care were discussed with IM residents team, and I agree with the findings and plans documented above.
[2025-08-06] MEDS: Magnesium Sulfate 4 GM Ivpb 4 GM/50 ML BAG IV (23:56)
[2025-08-06] MEDS: FOLIC ACID INJ 1 MG/0.2 ML IVP (23:56)
[2025-08-06] MEDS: THIAMINE INJ 250 MG in SODIUM CHLORIDE 0.9% 100 ML 205 MG IV (23:56)
[2025-08-07] VITALS (13 sets, daily range): BP systolic 108–131; BP diastolic 79–94; PULSE 92–122; RESP 11–18; TEMP 36.1–37.2; O2SAT 93–100; BMI 26.5
[2025-08-07 01:50] LABS: Basophils # (Auto) 0.0 Thou/mm3 (0.0-0.2); Basophils % (Auto) 1 % (0-2.5); Eosinophils # (Auto) 0.1 Thou/mm3 (0.0-0.5); Eosinophils % (Auto) 3 % (0-10); Hematocrit 25.1 % (41.0-53.0); Hemoglobin 8.2 g/dL (13.5-16.0); Immature Granulocytes Auto 0.01 Thou/mm3 (0.00-0.00); Lymphocytes # (Auto) 0.7 Thou/mm3 (1.0-4.8); Lymphocytes % (Auto) 23 % (10-50); Mean Corpuscular HGB Conc 32.7 g/dl (31.0-37.0); Mean Corpuscular Hemoglobin 28.7 pg (25.0-35.0); Mean Corpuscular Volume 88 fL (80-100); Monocytes # (Auto) 0.2 Thou/mm3 (0.0-0.8); Monocytes % (Auto) 7 % (0-12); Neutrophils # (Auto) 1.9 Thou/mm3 (1.8-7.7); Neutrophils % (Auto) 65 % (37-80); Nucleated Red Blood Cell # 0.00 Thou/mm3 (0.00-0.00); Nucleated Red Blood Cell % 0 /100 WBC (0); RDW Standard Deviation 66.6 fL (35.1-43.9); Red Blood Count 2.86 Miln/mm3 (4.50-5.90); White Blood Count 3.0 Thou/mm3 (3.8-10.6)
[2025-08-07 01:51] LABS: Platelet Count 14 Thou/mm3 (140-440)
[2025-08-07 01:53] LABS: Slide Review Platelets confirmed
--- NOTE | 2025-08-07 01:58 | PC.NURSE ---
Notified Dr. Rivera regarding patient's results of H/H and plt. Also, notified patient's plt results is still in the critical value from 9 to 14. No new orders received from
--- NOTE | 2025-08-07 04:02 | PC.NURSE ---
Notified Dr. Rivera regarding findings when doing stool blood occult test. Results obtained were positive.
[2025-08-07 04:08] LABS: OBS Card Expiration Date 9-31-2026; OBS Card Lot # 23001; OBS Developer Lot # 124; OBS Performed By dales; OBS QC OK? Yes; Occult Blood, Stool Positive (Negative)
[2025-08-07] MEDS: LACTULOSE SYRUP 20 GM/30 ML UDC PO ×3 (05:05→21:39)
[2025-08-07 05:58] LABS: Basophils # (Auto) 0.0 Thou/mm3 (0.0-0.2); Basophils % (Auto) 1 % (0-2.5); Eosinophils # (Auto) 0.1 Thou/mm3 (0.0-0.5); Eosinophils % (Auto) 3 % (0-10); Hematocrit 26.9 % (41.0-53.0); Immature Granulocytes Auto 0.02 Thou/mm3 (0.00-0.00); Lymphocytes # (Auto) 0.6 Thou/mm3 (1.0-4.8); Lymphocytes % (Auto) 20 % (10-50); Mean Corpuscular HGB Conc 32.7 g/dl (31.0-37.0); Mean Corpuscular Hemoglobin 28.9 pg (25.0-35.0); Mean Corpuscular Volume 89 fL (80-100); Monocytes # (Auto) 0.3 Thou/mm3 (0.0-0.8); Monocytes % (Auto) 10 % (0-12); Neutrophils # (Auto) 1.9 Thou/mm3 (1.8-7.7); Neutrophils % (Auto) 66 % (37-80); Nucleated Red Blood Cell # 0.00 Thou/mm3 (0.00-0.00); Nucleated Red Blood Cell % 0 /100 WBC (0); RDW Standard Deviation 68.3 fL (35.1-43.9); Red Blood Count 3.04 Miln/mm3 (4.50-5.90); White Blood Count 2.9 Thou/mm3 (3.8-10.6)
[2025-08-07 06:08] LABS: Hemoglobin 8.8 g/dL (13.5-16.0)
[2025-08-07 06:09] LABS: Platelet Count 13 Thou/mm3 (140-440)
[2025-08-07 06:30] LABS: Alanine Aminotransferase 14 U/L (10-49); Albumin, Serum 3.5 gm/dL (3.5-5.0); Albumin/Globulin Ratio 0.9 (1.2-2.2); Alkaline Phosphatase 151 U/L (46-116); Anion Gap 13 (7-16); Aspartate Amino Transferase 91 U/L (0-34); BUN/Creatinine Ratio 8 Ratio (12-20); Bilirubin,Total 3.4 mg/dL (0.3-1.2); Blood Urea Nitrogen < 5 mg/dL (9-23); Calcium 8.1 mg/dL (8.3-10.6); Calcium (Corrected) 8.5 mg/dL (8.5-10.1); Carbon Dioxide 26.2 mMol/L (20.0-31.0); Chloride 106 mMol/L (98-107); Creatinine (Component) 0.6 mg/dL (0.6-1.3); Estimated Creatinine Clearance 138.1 mL/min (>60); Globulin 3.7 gm/dL (2.3-3.5); Glucose 92 mg/dL (74-106); Magnesium 2.1 mg/dL (1.6-2.6); Osmolality,Calculated 285 (275-295); Phosphorous 3.2 mg/dL (2.4-5.1); Potassium 3.9 mMol/L (3.4-5.1); Sodium 145 mMol/L (136-145); Total Protein 7.2 gm/dL (5.7-8.2); eGFR > 60 See Note
[2025-08-07] MEDS: PANTOPRAZOLE 40 MG TABLET PO (09:01)
[2025-08-07] MEDS: THIAMINE 100 MG TABLET PO (09:01)
[2025-08-07] MEDS: FOLIC ACID 1 MG TABLET PO (09:01)
[2025-08-07 11:34] LABS: Slide Review Platelets confirmed
--- NOTE | 2025-08-07 13:22 | PD.RESCONSUL ---
HPI Data of Consult Requesting Physician: Robin Hester MD Admitting Provider: Naz Chan MD Attending Provider: Robin Hester MD Primary Care Provider: Cezar Adams MD Consult Narrative Reason for consult: Cirrhosis History of present illness: HPI:A 44-year-old male patient with past medical history of alcohol induced liver cirrhosis esophageal varices, portal hypertension gastropathy, chronic anemia, homelessness, with multiple visits to the ED due to alcohol intoxication or anemia. Patient came to the ED after he had a fall and started to experience severe headache that made him come to the ED. He reported he drank multiple beers before presentation. Patient also reported tactile hallucination, visual hallucination and shakiness. Patient denied any chest pain, epigastric pain, and any diarrhea or constipation. He reported multiple episodes of black tarry stool. However he denied any hematemesis, or fresh blood per rectum. Of note, patient has multiple episodes of hematemesis, patient has had multiple EGDs in the last year patient had 5 EGDs last year, patient was found to have esophageal varices in which they were banded, last EGD was done in June 25, 2025 and showed a scar from previous esophageal varices band ligation, hypertensive gastropathy and no band ligation was performed at that time. Home medications:Acamprosate, vitamin C, carvedilol 3.125, folic acid, gabapentin, pantoprazole ED course:At the ED patient was found to be intoxicated however he was experiencing some withdrawal symptoms at that time he scored CIWA 19 and 20, have tachycardia heart rate of 104, Alco level was 489, hemoglobin 7.7, platelets of 19, potassium 3.3, magnesium 1.4, PT was 15.3, INR 1.5, calcium level of 7.8, Head CT was negative for any hemorrhage or mass effectpatient was given phenobarbital loading dose, 1 Benadryl 25, thiamine, and was given 1 bolus LR. Potassium and magnesium were repleted. PMH: As above Social hx: Alcohol: Chronic alcohol use disorder Tobacco: Remote history of smoking Illicit drugs: Remote history of meth abuse 3 years ago Allergies: No known allergies cc:: cc: Robin Hester MD Exam Vital Signs Temp Pulse Resp BP Pulse Ox O2 Del Method 97.7 F 116 H 16 127/94 H 93 L Room Air 10/03/25 13:20 08/07/25 13:20 08/07/25 13:20 08/07/25 13:20 08/07/25 12:00 08/07/25 12:00 Narrative Exam GEN: AOx3, Kinyarwanda speaker, able to speak full sentences HEENT: NC/AC, PERRLA, oral mucosa moist, neck supple CVS: RRR, S1-S2 present, tachycardic heart rate of 107, no murmurs appreciated RESP: CTAB GI: soft, mildly distended, non tender, NBS MSK: able to move all 4 limbs, no lower extremity edema SKIN: warm and dry [employer] MAN: CN II-XII and Sensation grossly intact. Results Labs 08/07/25 05:23 08/07/25 05:23 Labs: Short CBC 08/06/25 08/07/25 08/07/25 Range/Units 13:25 01:38 05:23 WBC 3.4 L 3.0 L 2.9 L (3.8-10.6) Thou/mm3 Hgb 7.7 L 8.2 L 8.8 L (13.5-16.0) g/dL Hct 22.9 L 25.1 L 26.9 L (41.0-53.0) % Plt Count 9 L* D 14 L* D 13 L* (140-440) Thou/mm3 BMP 08/06/25 08/07/25 13:25 05:23 Sodium 139 145 Potassium 3.3 L 3.9 D Chloride 101 106 Carbon Dioxide 24.8 26.2 BUN < 5 L < 5 L Creatinine 0.6 0.6 Glucose 110 H 92 Calcium 7.8 L 8.1 L Liver Function 08/06/25 08/07/25 Range/Units 13:25 05:23 Total Bilirubin 3.6 H 3.4 H (0.3-1.2) mg/dL AST 92 H 91 H (0-34) U/L ALT 14 14 (10-49) U/L Alkaline Phosphatase 156 H 151 H (46-116) U/L Albumin 3.5 3.5 (3.5-5.0) gm/dL Urine 08/06/25 Range/Units 15:46 Urine Color Lt-Yellow (Lt Yel-Yel) Urine Clarity Clear (Clear/Hazy) Urine pH 6.5 (5.0-7.0) Ur Specific [place] 1.005 (1.001-1.035) Urine Protein Negative (Neg - Trace) Urine Glucose (UA) Negative (Negative) Quality Measures Quality Measures none Medications Home Medications and Allergies Home Medications ?Medication ?Instructions ?Recorded ?Confirmed ?Type acamprosate 333 mg tablet,delayed 333 mg PO QDAY 08/07/25 08/07/25 History release ascorbic acid (vitamin C) 250 mg 250 mg PO QDAY 08/07/25 08/07/25 History tablet ferrous sulfate 325 mg (65 mg 325 mg PO QDAY 08/07/25 08/07/25 History iron) tablet gabapentin 400 mg capsule 400 mg PO Q8HR PRN shakes 08/07/25 08/07/25 History Allergies Allergy/AdvReac Type Severity Reaction Status Date / Time No Known Allergies Allergy Verified 08/06/25 11:27 Visit Medications Carvedilol (Carvedilol 3.125 Mg Tablet) 3.125 mg PO BIDWM [facility] Stop: 09/06/25 07:59 Last Admin: 08/07/25 09:00 Dose: 3.125 mg Chlordiazepoxide HCl (Chlordiazepoxide Hcl 25 Mg Capsule) 50 mg PO Q8HR [facility] Stop: 08/12/25 13:59 Last Admin: 08/07/25 13:08 Dose: 50 mg Folic Acid (Folic Acid 1 Mg Tablet) 1 mg PO QDAY [facility] Stop: 09/06/25 08:59 Last Admin: 08/07/25 09:01 Dose: 1 mg Lactulose (Lactulose Syrup 20 Gm/30 Ml Udc) 20 gm PO TID [facility]; Protocol Stop: 09/06/25 05:59 Last Admin: 08/07/25 13:07 Dose: 20 gm Lorazepam (Lorazepam 0.5 Mg Tablet) 1 mg PO Q4HR PRN PRN Reason: CIWA Score 8-15 Stop: 08/11/25 22:43 Last Admin: 08/07/25 13:08 Dose: 1 mg Lorazepam (Lorazepam 0.5 Mg Tablet) 2 mg PO Q4HR PRN PRN Reason: CIWA SCORE 16-20 Stop: 08/11/25 22:43 Last Admin: 08/07/25 09:02 Dose: 2 mg Lorazepam (Lorazepam 0.5 Mg Tablet) 4 mg PO Q4HR PRN PRN Reason: CIWA SCORE >20 Stop: 08/11/25 22:43 Ondansetron HCl (Ondansetron Inj 2 Mg/Ml Inj 2 Ml) 4 mg IVP Q6H PRN; Protocol PRN Reason: NAUSEA OR VOMITING Stop: 09/05/25 22:33 Pantoprazole Sodium (Pantoprazole 40 Mg Tablet) 40 mg PO QDAY BRANDI Stop: 09/06/25 08:59 Last Admin: 08/07/25 09:01 Dose: 40 mg Thiamine HCl (Thiamine 100 Mg Tablet) 100 mg PO DAILY BRANDI Stop: 09/06/25 08:59 Last Admin: 08/07/25 09:01 Dose: 100 mg Discontinued Medications Hydrocodone Bitart/Acetaminophen (Hydrocodone/Apap 5/325 Tablet) 1 tab PO X1 ONE Stop: 08/06/25 23:05 Phenobarbital Sodium 130 mg/ (Sodium Chloride 12 ml) 0 mg IVP X1 ONE Stop: 08/06/25 21:58 Last Admin: 08/06/25 22:13 Dose: 130 mg Diphenhydramine HCl (Diphenhydramine Inj 50 Mg/Ml Vial) 25 mg IVP X1 ONE Stop: 08/06/25 21:58 Last Admin: 08/06/25 22:10 Dose: 25 mg Folic Acid (Folic Acid Inj 1 Mg/0.2 Ml) 1 mg IVP X1 ONE Stop: 08/06/25 22:53 Last Admin: 08/06/25 23:56 Dose: 1 mg Lactated Ringer's (Lactated Ringers) 1,000 mls @ 999 mls/hr IV .Q1H1M ONE Stop: 08/06/25 13:39 Last Infusion: 08/06/25 15:17 Dose: Infused Magnesium Sulfate/Dextrose (Magnesium Sulfate Ivpb) 1 gm in 100 mls @ 100 mls/hr IV X1 ONE Stop: 08/06/25 15:28 Last Infusion: 08/06/25 16:19 Dose: Infused Thiamine HCl 100 mg/ Sodium (Chloride) 101 mls @ 202 mls/hr IV X1 ONE Stop: 08/06/25 22:27 Last Admin: 08/06/25 22:19 Dose: 202 mls/hr Thiamine HCl 250 mg/ Sodium (Chloride) 102.5 mls @ 205 mls/hr IV X1 ONE Stop: 08/06/25 23:23 Last Admin: 08/06/25 23:56 Dose: 205 mls/hr Magnesium Sulfate (Magnesium Sulfate Ivpb) 4 gm in 50 mls @ 12.5 mls/hr IV X1 ONE Stop: 08/07/25 02:55 Last Admin: 08/06/25 23:56 Dose: 12.5 mls/hr Ibuprofen (Ibuprofen Tab 400 Mg Tablet) 400 mg PO Q6HR PRN PRN Reason: Fever > 100.3 Stop: 09/05/25 22:33 Ibuprofen (Ibuprofen Tab 600 Mg Tablet) 600 mg PO Q6H PRN PRN Reason: PAIN SCALE 1-3 (mild Stop: 09/05/25 22:33 Lorazepam (Lorazepam 0.5 Mg Tablet) 2 mg PO X1 ONE Stop: 08/06/25 22:51 Last Admin: 08/06/25 23:57 Dose: 2 mg Potassium Chloride (Potassium Chloride 20 Meq Tabcr) 40 meq PO X1 ONE Stop: 08/06/25 14:30 Last Admin: 08/06/25 15:21 Dose: 40 meq Assessment & Plan Plan Summary: A 44-year-old male patient with past medical history of alcohol induced liver cirrhosis esophageal varices, portal hypertension gastropathy, chronic anemia, homelessness, with multiple visits to the ED due to alcohol intoxication or anemia. Was admitted for alcohol withdrawal syndrome and pancytopenia workup. #Liver cirrhosis #pancytopenia, Most likely secondary to liver cirrhosis vs B12, Folate defciency #Chronic normocytic hypochromic anemia #Homelessness Patient is known case of alcohol use disorder that resulted in liver cirrhosis, he made all the stigmata of liver failure including low platelets of 15,000's, esophageal varices, liver cirrhosis on imaging, and hypertensive gastropathy and previous EGDs. Presentation patient hemoglobin was 7.7, his baseline usually range between 9.3-8.2. Patient reported black tarry stool this time. Fecal occult blood test was positive. Today patient also had 1 episode black tarry stool. Noticed to have also associated leukopenia 2.9, previously was WBC within normal limits, has chronic thrombocytopenia that range between 23 and 51. Today his platelets level are 13, patient was also noticed to have INR level of 1.5, PTT of 50.7 05/11/2025 EGD was done and it showed grade 2 esophageal varices which they were banded. 06/29/2025, EGD was done and it showed scar from previous esophageal varices band ligation, hypertensive gastropathy and no band ligation was performed at that time. Previous EGDs were done and showed also multiple esophageal varices. Previous blood film in March 28, 2025 showed severe normocytic, hypochromic anemia with target cells most likely secondary to liver cirrhosis, and also most likely secondary to B12/folate deficiencies Given the fact that the patient has pancytopenia that also can be related to vitamin B12 deficient in addition to the cirrhosis Madrey score is 19, additionally, no significant elevation of AST and ALT for the reason no need for starting the patient on steroids Acute viral markers were negative May 28 AFP non screening was within normal limit, Alcohol level persistently above 100 patient is not candidate for liver transplantation Plan ? Start the patient on clear liquid diet food no soda or juice for possible EGD tonight ? Due to the patient multiple variceal bleed patient may benefit from a TIPS procedure prevent recurrent GI bleed ? Iron panel, B12 level, RBC folate ? Consider testing for ammonia level if the patient become confused ? Consider adding vitamin K for the patient, has reviewed the patient with liver cirrhosis tend to have chronic vitamin K deficiency secondary to malnutrition and cholestasis decrease vitamin K absorption. ? Keep hemoglobin level above 7 transfuse as needed, ? Recommend transfusing the patient with platelets as the patient still has active black tarry stool ? Because the patient is homeless, poor medical follow-up, recommend screening the patient for HCC with AFP, and encouraged outpatient every 6 months screening and follow-up. #Alcohol withdrawal syndrome #Alcohol use disorder Patient persistently have alcohol over above 100, this admission his alcohol level above 400. Patient has liver cirrhosis secondary to alcohol. Plan: Patient on CIWA protocol, folic acid, thiamine. . Thank you for the consultation, please do not hesitate to reach out if you have any question or concern - Patient's plan and care discussed with my attending, Dr. Pan Zambrano MD Internal Medicine PGY-3 Attending Provider Attestation/Addendum Patient evaluated along with the internal medicine team no signs of any active bleeding Patient had multiple endoscopies in the past He is homeless and very noncompliant and continues to drink At this time no need for any invasive GI workup He is pancytopenic with thrombocytopenia Will continue to monitor laboratory data IV Protonix Watch for alcohol withdrawal Will follow the patient
[2025-08-07 13:24] LABS: Ferritin 119 ng/mL (10.5-307.3); Iron 279 mcg/dL (65-175); Percent Iron Saturation 84 % (20-55); Total Iron Binding Capacity 332 mcg/dL (250-425); Unsaturated Iron Binding 53 (225-295)
--- NOTE | 2025-08-07 13:24 | ESPR_ITS ---
<Statement entered by Sawyer Cummings MD - 08/07/25 16:49> Patient was seen and evaluated at bedside this morning. No acute overnight events. Patient CIWA score was in the 15-19 in the morning therefore Librium 50 mg 3 times daily were started. Patient denies any visual or auditory hallucinations. Patient was mildly tachycardic, but otherwise nothing else. GI was consulted given low platelets and an FOBT that was positive. 2 more units of platelets were transfused today. No other complaints at this time. Patient was again counseled about abstaining from alcohol use. General: A/O x3, no acute distress, disheveled Eyes: PERRL, EOMI. Anicteric, vision grossly intact. Ears: No ear pain, no ear discharge, Hearing grossly intact. Nose: No nasal discharge. Mouth/Throat: Dry mucous membranes, poor oral hygiene, no redness, no lesions. Some dry blood in the R cheek. Neck: Neck supple, non-tender, no cervical lymphadenopathy. Lungs: Clear DIONNA to auscultation and percussion, No accessory muscle use. Cardio: Normal S1/S2, regular rhythm, no murmurs, no JVD or carotid bruits. Abdomen: Soft, but distended, non-tender, no palpable masses, peristalsis present, no guarding or rebound. Extremities: Symmetrical, no significant deformities, no peripheral edema , non-tender, peripheral pulses presents. Tremor in DIONNA UE even at rest. Skin: No rashes, no lesions, warm to touch. Neuro: No focal neurological deficits. motor and sensory intact. Psych: Cooperative, appropriate mood and effect. Note reviewed and agree with the medical student's care plan as documented except as noted above. Case disclosed with attending Dr. Kacie Cummings PGY2 Disclaimer: Even though this this note was dictated by speech recognition and even though it was carefully revised there may still be minor errors in medicinal plant picker due to voice recognition software. Documentation for date of: 08/07/25 Subjective Subjective Interval history: Overnight no acute events. Pt was seen at bedside with attending physician and residents. Nurse was included in discussion. Telemetry overnight showed sinus tachycardia to highest 150HR. The patient has had one bowel movement this morning that was not tarry. Overall the pt seems agitated, acutely ill. He reports ongoing nausea without vomiting, 9/10 epigastric pain, anxiety, diaphoresis, tremors, headache, bloody sputum. Reports auditory hallucinations on admission but none today. Denies hematemesis, hematochezia, chest pain, palpitations, SOB, diarrhea. Exam Vital Signs Temp Pulse Resp BP Pulse Ox O2 Del Method 97.7 F 116 H 16 127/94 H 93 L Room Air 08/07/25 13:20 08/07/25 13:20 08/07/25 13:20 08/07/25 13:20 08/07/25 12:00 08/07/25 12:00 Narrative Exam Eye: PERRL, EOMI, normal conjunctiva, no scleral icterus HENT: Normocephalic, atraumatic, normal hearing, moist oral mucosa Neck: Supple, non-tender, no JVD, no lymphadenopathy Lungs: Clear to auscultation bilaterally, non-labored respirations, symmetric chest rise, no use of accessory muscles Heart: Normal S1 and S2, no S3 or S4 appreciated. Normal rate and regular rhythm, no murmurs, rubs gallops, or edema. Peripheral pulses intact bilaterally, capillary refill brisk distally Abdomen: Distended, firm and tense, limited shifting dullness Musculoskeletal: Normal range of motion and strength, no tenderness or swelling Skin: Skin is warm, dry, no rashes or lesions. Neurologic: Alert, awake and oriented x2, oriented to name and birthday. A sterixis of b/l upper extremities Psychiatric: Cooperative, appropriate mood and affect Objective Labs 08/08/25 04:29 08/08/25 04:29 Labs: Laboratory Results - last 24 hr 08/06/25 08/06/25 08/06/25 13:25 15:46 17:18 WBC 3.4 L RBC 2.66 L Hgb 7.7 L Hct 22.9 L MCV 86 MCH 28.9 MCHC 33.6 RDW Std Deviation 68.0 H Plt Count 9 L* D Neut % (Auto) 65 Lymph % (Auto) 25 [place] % (Auto) 7 Eos % (Auto) 2 Baso % (Auto) 1 Neut # (Auto) 2.2 Lymph # (Auto) 0.8 L [place] # (Auto) 0.3 Eos # (Auto) 0.1 Baso # (Auto) 0.0 Immature Gran # (Auto) 0.02 H Absolute Nucleated RBC 0.02 H Immature Gran % 1 H Nucleated RBC % 1 H PT 15.7 H INR 1.5 H APTT 35.5 Sodium 139 Potassium 3.3 L Chloride 101 Carbon Dioxide 24.8 Anion Gap 13 BUN < 5 L Creatinine 0.6 Estim Creat Clear Calc Not Performed. eGFR > 60 BUN/Creatinine Ratio 8 L Glucose 110 H Calculated Osmolality 275 Calcium 7.8 L Corrected Calcium 8.2 L Phosphorus Magnesium 1.4 L Total Bilirubin 3.6 H AST 92 H ALT 14 Alkaline Phosphatase 156 H B-Natriuretic Peptide 87 Total Protein 7.2 Albumin 3.5 Globulin 3.7 H Albumin/Globulin Ratio 0.9 L Ur Collection Type Clean Catch Urine Color Lt-Yellow Urine Clarity Clear Urine pH 6.5 Ur Specific [place] 1.005 Urine Protein Negative Urine Glucose (UA) Negative Urine Ketones Negative Urine Blood Negative Urine Nitrite Negative Urine Bilirubin Negative Urine Urobilinogen (Auto) Negative Ur Leukocyte Esterase Negative Urine RBC 1 Urine WBC < 1 Ur Squamous Epith Cells 0 Urine Bacteria Rare Ur Culture Indicated? Not Indicated Stool Occult Blood Urine Opiates Screen Negative Urine Fentanyl Screen Negative Ur Barbiturates Screen Negative U Amphetamin/Meth Scrn Negative U Benzodiazepines Scrn Negative U Cocaine Metab Screen Negative U Marijuana (THC) Screen Negative Ethyl Alcohol 489.9 H* Misc Test Result Platelets confirmed Blood Type O Positive Antibody Screen NEGATIVE Crossmatch See Detail Blood Bank Wristband ID Yes Blood Bank Comment PLATP Ready 08/07/25 08/07/25 08/07/25 01:38 03:35 05:23 WBC 3.0 L 2.9 L RBC 2.86 L 3.04 L Hgb 8.2 L 8.8 L Hct 25.1 L 26.9 L MCV 88 89 MCH 28.7 28.9 MCHC 32.7 32.7 RDW Std Deviation 66.6 H 68.3 H Plt Count 14 L* D 13 L* Neut % (Auto) 65 66 Lymph % (Auto) 23 20 [place] % (Auto) 7 10 Eos % (Auto) 3 3 Baso % (Auto) 1 1 Neut # (Auto) 1.9 1.9 Lymph # (Auto) 0.7 L 0.6 L [place] # (Auto) 0.2 0.3 Eos # (Auto) 0.1 0.1 Baso # (Auto) 0.0 0.0 Immature Gran # (Auto) 0.01 H 0.02 H Absolute Nucleated RBC 0.00 0.00 Immature Gran % 0 1 H Nucleated RBC % 0 0 PT INR APTT Sodium 145 Potassium 3.9 D Chloride 106 Carbon Dioxide 26.2 Anion Gap 13 BUN < 5 L Creatinine 0.6 Estim Creat Clear Calc 138.1 eGFR > 60 BUN/Creatinine Ratio 8 L Glucose 92 Calculated Osmolality 285 Calcium 8.1 L Corrected Calcium 8.5 Phosphorus 3.2 Magnesium 2.1 Total Bilirubin 3.4 H AST 91 H ALT 14 Alkaline Phosphatase 151 H B-Natriuretic Peptide Total Protein 7.2 Albumin 3.5 Globulin 3.7 H Albumin/Globulin Ratio 0.9 L Ur Collection Type Urine Color Urine Clarity Urine pH Ur Specific [place] Urine Protein Urine Glucose (UA) Urine Ketones Urine Blood Urine Nitrite Urine Bilirubin Urine Urobilinogen (Auto) Ur Leukocyte Esterase Urine RBC Urine WBC Ur Squamous Epith Cells Urine Bacteria Ur Culture Indicated? Stool Occult Blood Positive A Urine Opiates Screen Urine Fentanyl Screen Ur Barbiturates Screen U Amphetamin/Meth Scrn U Benzodiazepines Scrn U Cocaine Metab Screen U Marijuana (THC) Screen Ethyl Alcohol Misc Test Result Platelets confirmed Platelets confirmed Blood Type Antibody Screen Crossmatch Blood Bank Wristband ID Blood Bank Comment Quality Measures Quality Measures none Assessment & Plan Assessment Current Active Medications: Generic Name Dose Route Start Last Admin Trade Name Emy PRN Reason Stop Dose Admin Carvedilol 3.125 mg 08/07/25 08:00 08/07/25 09:00 Carvedilol 3.125 Mg Tablet PO 09/06/25 07:59 3.125 mg BIDWM BRANDI Administration Chlordiazepoxide HCl 50 mg 08/07/25 14:00 08/07/25 13:08 Chlordiazepoxide Hcl 25 Mg Capsule PO 08/12/25 13:59 50 mg Q8HR BRANDI Administration Folic Acid 1 mg 08/07/25 09:00 08/07/25 09:01 Folic Acid 1 Mg Tablet PO 09/06/25 08:59 1 mg QDAY BRANDI Administration Lactulose 20 gm 08/07/25 06:00 08/07/25 13:07 Lactulose Syrup 20 Gm/30 Ml Udc PO 09/06/25 05:59 20 gm TID BRANDI Administration Protocol Lorazepam 1 mg 08/06/25 22:44 08/07/25 13:08 Lorazepam 0.5 Mg Tablet PO 08/11/25 22:43 1 mg Q4HR PRN Administration CIWA Score 8-15 Lorazepam 2 mg 08/06/25 22:44 08/07/25 09:02 Lorazepam 0.5 Mg Tablet PO 08/11/25 22:43 2 mg Q4HR PRN Administration CIWA SCORE 16-20 Lorazepam 4 mg 08/06/25 22:44 Lorazepam 0.5 Mg Tablet PO 08/11/25 22:43 Q4HR PRN CIWA SCORE >20 Ondansetron HCl 4 mg 08/06/25 22:34 Ondansetron Inj 2 Mg/Ml Inj 2 Ml IVP 09/05/25 22:33 Q6H PRN NAUSEA OR VOMITING Protocol Pantoprazole Sodium 40 mg 08/07/25 09:00 08/07/25 09:01 Pantoprazole 40 Mg Tablet PO 09/06/25 08:59 40 mg QDAY BRANDI Administration Thiamine HCl 100 mg 08/07/25 09:00 08/07/25 09:01 Thiamine 100 Mg Tablet PO 09/06/25 08:59 100 mg DAILY BRANDI Administration Plan Mr Wells is a 44 yo M w/ PMH EtOH induced cirrhosis c/b varices, anemia, upper GI bleed, and homelessness who presented to the ED on 08/06 with headache after a mechanical fall while intoxicated. Admitted for EtOH withdrawal scoring on CIWA protocol. Notably pt has frequently been hospitalized with current presentations and has in past taken steps to quitting. Discussed with patient at length this admission regarding consequences of continuing to use alcohol. #EtOH withdrawal Scored 19, 20 in ED, 22-23 this morning. S/p IV phenobarbital in ED. Appears tremulous, agitated, anxious this morning with nausea. Possible that current Ativan protocol is insufficient. - CIWA protocol w/ PRN Ativan - Started Librium 50mg PO q8 #Hepatic encephalopathy (improving) #EtOH induced end-stage liver disease A&Ox2 this morning, oriented to name and date, not at baseline. Has hx of bleeding variceal hemorrhages, decreased synthetic liver dysfunction, elevated total bili (chronic). Tachycardic overnight and this morning as well as bloody sputum both reported by pt and present as dried blood on his gown are concerning for s/sx of active GI bleed. Additionally pt is pancytopenic (WBC 2.9, Hgb 8.2, Plt 13). Asterixis, abdominal distension present MELD-Na in ED: 16 --> 6% 3-month mortality. Child-Ham in ED: 10, Class C, Life expectancy 1-3 years. - Daily CBC, CMP, Mg, Phos - Pantoprazole 40 mg PO daily - Carvedilol 3.125 mg PO BID to reduce portal HTN - Thiamine 100 mg PO daily - Folic acid 1 mg PO daily - Lactulose 20 grams PO TID - CIWA + Librium as above - Avoid hepatotoxic medications #Pancytopenia (WBC 2.9, Hgb 8.2, Plt 13 today). #?UGIB Most likely 2/2 EtOH-induced cirrhosis, however tachycardic overnight and this morning as well as bloody sputum both reported by pt and present as dried blood on his gown are concerning for s/sx of active GI bleed. S/p 1U RBC and 1U plt in ED with minimal improvement of Hgb and Plt. +FOBT - Daily CBC - Ordered 2U plt, currently transfusing - Consulted GI, per recs pt is placed on clear liquid diet for possible EGD in the PM. Pt notably has received various EGDs in the past for similar presentations and is s/p variceal banding. - Transfuse RBC if hgb <7 - Transfuse platelets if plt <10,000 to prevent spontaneous hemorrhage #Electrolyte disturbances - Replete PRN Checklist Dispo: Pending GI workup/imaging Diet: clear liquid Bowel Reg: Lactulose 20 g PO TID VTE ppx: SCD (given low plt) GI ppx: Pantoprazole 40 mg PO daily Pain mgmt: Ibuprofen PRN Code status: Full Plan discussed with attending Dr. Kacie Bell, Med Student OMSIV Attending Provider Attestation/Addendum I have examined the patient, reviewed labs and imaging findings, discussed the case with the resident(s), and reviewed entered orders. I agree with the plan of care as outlined in this note, with these additional summaries/recommendations: Patient seen at bedside. He continues to be have alcohol withdrawal. CIWA elevated this morning and scheduled Librium added to regimen. We will curriculum counselor patient on alcohol cessation once mentation is more improved. Patient was also found to have elevated ammonia level and continue lactulose. Continue supplemental support with thiamine and folic acid. Patient was also noted to have severe thrombocytopenia most likely secondary to underlying liver disease. We will order platelet transfusion and follow-up repeat. Leukopenia also present and if worsens we will consult hematology. Gastroenterology consulted for cirrhosis and suspected gastrointestinal bleed. Order iron panel, B12, and folate. We will ultrasound patient's abdomen to evaluate for ascites. Patient updated on the plan and in agreement. All questions answered to satisfaction. Please see residents note for additional details and management. Dr. Kacie MD
[2025-08-07 14:03] LABS: Immature Reticulocyte Fraction 34.1 % (2.3-13.4); Reticulocyte % (Auto) 1.2 % (0.5-1.5); Reticulocyte Absolute Auto 35.5 Biln/L (25.0-75.0); Reticulocyte Hgb Content 40.9 pg (28.0-35.0)
[2025-08-07 14:38] LABS: Vitamin B12 1022 pg/mL (211-911)
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
[2025-08-08] VITALS (8 sets, daily range): BP systolic 102–138; BP diastolic 72–93; PULSE 93–123; RESP 13–17; TEMP 36.6–37.2; O2SAT 92–98; BMI 26.9
[2025-08-08] MEDS: LACTULOSE SYRUP 20 GM/30 ML UDC PO ×3 (05:34→21:08)
[2025-08-08 05:49] LABS: Basophils # (Auto) 0.0 Thou/mm3 (0.0-0.2); Basophils % (Auto) 1 % (0-2.5); Eosinophils # (Auto) 0.1 Thou/mm3 (0.0-0.5); Eosinophils % (Auto) 4 % (0-10); Hematocrit 24.8 % (41.0-53.0); Immature Granulocytes Auto 0.01 Thou/mm3 (0.00-0.00); Lymphocytes # (Auto) 0.6 Thou/mm3 (1.0-4.8); Lymphocytes % (Auto) 21 % (10-50); Mean Corpuscular HGB Conc 33.5 g/dl (31.0-37.0); Mean Corpuscular Hemoglobin 29.3 pg (25.0-35.0); Mean Corpuscular Volume 88 fL (80-100); Monocytes # (Auto) 0.2 Thou/mm3 (0.0-0.8); Monocytes % (Auto) 8 % (0-12); Neutrophils # (Auto) 1.9 Thou/mm3 (1.8-7.7); Neutrophils % (Auto) 66 % (37-80); Nucleated Red Blood Cell # 0.02 Thou/mm3 (0.00-0.00); Nucleated Red Blood Cell % 1 /100 WBC (0); RDW Standard Deviation 65.3 fL (35.1-43.9); Red Blood Count 2.83 Miln/mm3 (4.50-5.90); White Blood Count 2.9 Thou/mm3 (3.8-10.6)
[2025-08-08 05:53] LABS: Hemoglobin 8.3 g/dL (13.5-16.0); Platelet Count 14 Thou/mm3 (140-440)
[2025-08-08 06:05] LABS: Slide Review Platelets confirmed
[2025-08-08 06:31] LABS: Alanine Aminotransferase 13 U/L (10-49); Albumin, Serum 3.4 gm/dL (3.5-5.0); Albumin/Globulin Ratio 0.9 (1.2-2.2); Alkaline Phosphatase 151 U/L (46-116); Anion Gap 7 (7-16); Aspartate Amino Transferase 79 U/L (0-34); BUN/Creatinine Ratio 7 Ratio (12-20); Bilirubin,Total 5.3 mg/dL (0.3-1.2); Blood Urea Nitrogen < 5 mg/dL (9-23); Calcium 8.3 mg/dL (8.3-10.6); Calcium (Corrected) 8.8 mg/dL (8.5-10.1); Carbon Dioxide 24.9 mMol/L (20.0-31.0); Chloride 102 mMol/L (98-107); Creatinine (Component) 0.7 mg/dL (0.6-1.3); Estimated Creatinine Clearance 118.4 mL/min (>60); Globulin 3.7 gm/dL (2.3-3.5); Glucose 90 mg/dL (74-106); Magnesium 1.3 mg/dL (1.6-2.6); Osmolality,Calculated 265 (275-295); Phosphorous 2.4 mg/dL (2.4-5.1); Potassium 3.3 mMol/L (3.4-5.1); Sodium 134 mMol/L (136-145); Total Protein 7.1 gm/dL (5.7-8.2); eGFR > 60 See Note
[2025-08-08] MEDS: Magnesium Sulfate 4 GM Ivpb 4 GM/50 ML BAG IV (09:16)
[2025-08-08] MEDS: FOLIC ACID 1 MG TABLET PO (09:17)
[2025-08-08] MEDS: THIAMINE 100 MG TABLET PO (09:18)
[2025-08-08] MEDS: PHYTONADIONE INJ 10 MG/ML AMP SC (10:36)
[2025-08-08] MEDS: cefTRIAXone/D5w 1gm IV premix 1 GM/50 ML BAG IV (11:31)
[2025-08-08] MEDS: NAPH,KPH MBDB 1 PACKET (1.5 GM) PO (11:31)
--- NOTE | 2025-08-08 12:03 | PC.SS ---
Rounding: Dr. Perla following, on Octreotide drip for now. DC plan home.
[2025-08-08] MEDS: OCTREOTIDE ACET INJ 1,000 MCG in SODIUM CHLORIDE 0.9% 100 ML 5.1 MCG IV (12:09)
--- NOTE | 2025-08-08 13:31 | ESPR_ITS ---
Documentation for date of: 08/08/25 Senior resident attestation: Patient evaluated and examined at the bedside, plan of care discussed with rest of the team including my attending physician, except as noted. Patient admitted for alcohol withdrawal symptoms and GI bleed, continues to have black tarry stools 3-4 episodes of vomiting overnight. Patient is anemic but hemoglobin currently stable started on IV octreotide, IV Protonix, gastroenterology was consulted, no plans for EGD as patient had a recent EGD found to have grade 2 varices not too long ago, patient is noncompliant with alcohol abstinence. Continues to drink, patient has had multiple previous admissions for alcohol withdrawal symptoms and seizures, recurrent GI bleed. Educational resources and counseling offered, educated patient about following up with alcoholics aynonymous upon discharge. Patient demonstrated understanding. Patient wanted to go home, recommended against leaving the hospital as patient has active GI bleed. Quresh PGY3 Subjective Subjective Interval history: Overnight, CIWA 2 and 3 and yesterday afternoon CIWA higher between 8-23. Patient is feeling good and endorses continued black stools, about 2-3 a day. Denies anxiety, diaphoresis, tremors or AVH. Is requesting to leave. BP 120s 130s over high 80s to low 90s. Telemetry reviewed, sinus tachycardia high 90s to low 100s. WBC stable low at 2.9, hemoglobin stable 8.3, platelets stable at 14 despite 1 unit platelets infused yesterday. Sodium 134 potassium 3.3 repleted with 40 mEq, BUN less than 5 creatinine 0.7 magnesium 1.3 repleted with 4 g IV. T. bili uptrending 3.4-5.3 today. AST ALT downtrending at 79/13. Alk phos still elevated 151. Continue Librium 50 mg every 8 hours as well as CIWA protocol, plan to down titrate as CIWA improves. Continue lactulose 20 mg BID, carvedilol, pantoprazole, thiamine and folic acid. Started octreotide GGT and ceftriaxone 1 g for SBP prophylaxis isopossible upper GI bleed. 1 units of platelet ready however will unlikely transfuse as previously transfused 2 units did not significant increase platelets. Per GI, no invasive GI procedures at the moment. Diet restarted. Exam Vital Signs Temp Pulse Resp BP Pulse Ox O2 Del Method 97.9 F 103 H 14 102/73 95 Room Air 08/08/25 12:00 08/08/25 12:00 08/08/25 12:00 08/08/25 12:00 08/08/25 12:00 08/08/25 12:00 Narrative Exam GENERAL: AOx3, no acute distress, fatiuged, malodorous, not diaphoretic or anxious HEENT: NC/AT, mucous membranes dry, bilateral sclera anicteric CARDIOVASCULAR: regular rhythm, tachycardic, S1/S2 present, no murmurs appreciated PULMONARY: clear to auscultation bilaterally, no rales/rhonchi/wheezes ABDOMINAL: soft, non-tender, non-distended, no rebound/guarding, bowel sounds present EXTREMITIES: no peripheral edema, no tremors SKIN: warm and dry, intact, no rashes NEURO: CN II-XII grossly intact, no focal deficits, alert, following commands Objective Labs 08/09/25 04:45 08/09/25 04:45 Labs: Laboratory Results - last 24 hr 08/06/25 08/07/25 08/07/25 17:18 05:25 13:45 WBC RBC Hgb Hct MCV MCH MCHC RDW Std Deviation Plt Count Neut % (Auto) Lymph % (Auto) [place] % (Auto) Eos % (Auto) Baso % (Auto) Neut # (Auto) Lymph # (Auto) [place] # (Auto) Eos # (Auto) Baso # (Auto) Immature Gran # (Auto) Absolute Nucleated RBC Immature Gran % Nucleated RBC % Retic Count (auto) 1.2 Absolute Retic 35.5 Immature Retic Fraction 34.1 H Retic Hgb Content CHr 40.9 H Sodium Potassium Chloride Carbon Dioxide Anion Gap BUN Creatinine Estim Creat Clear Calc eGFR BUN/Creatinine Ratio Glucose Calculated Osmolality Calcium Corrected Calcium Phosphorus Magnesium Total Bilirubin AST ALT Alkaline Phosphatase Total Protein Albumin Globulin Albumin/Globulin Ratio Vitamin B12 1022 H Misc Test Result Blood Type O Positive Antibody Screen NEGATIVE Crossmatch See Detail Blood Bank Wristband ID Yes Blood Bank Comment PLATP Ready 08/08/25 04:29 WBC 2.9 L RBC 2.83 L Hgb 8.3 L Hct 24.8 L MCV 88 MCH 29.3 MCHC 33.5 RDW Std Deviation 65.3 H Plt Count 14 L* Neut % (Auto) 66 Lymph % (Auto) 21 [place] % (Auto) 8 Eos % (Auto) 4 Baso % (Auto) 1 Neut # (Auto) 1.9 Lymph # (Auto) 0.6 L [place] # (Auto) 0.2 Eos # (Auto) 0.1 Baso # (Auto) 0.0 Immature Gran # (Auto) 0.01 H Absolute Nucleated RBC 0.02 H Immature Gran % 0 Nucleated RBC % 1 H Retic Count (auto) Absolute Retic Immature Retic Fraction Retic Hgb Content CHr Sodium 134 L D Potassium 3.3 L D Chloride 102 Carbon Dioxide 24.9 Anion Gap 7 BUN < 5 L Creatinine 0.7 Estim Creat Clear Calc 118.4 eGFR > 60 BUN/Creatinine Ratio 7 L Glucose 90 Calculated Osmolality 265 L Calcium 8.3 Corrected Calcium 8.8 Phosphorus 2.4 Magnesium 1.3 L Total Bilirubin 5.3 H D AST 79 H ALT 13 Alkaline Phosphatase 151 H Total Protein 7.1 Albumin 3.4 L Globulin 3.7 H Albumin/Globulin Ratio 0.9 L Vitamin B12 Misc Test Result Platelets confirmed Blood Type Antibody Screen Crossmatch Blood Bank Wristband ID Blood Bank Comment Quality Measures Quality Measures VTE prophylaxis Assessment & Plan Assessment Current Active Medications: Generic Name Dose Route Start Last Admin Trade Name Freq PRN Reason Stop Dose Admin Carvedilol 3.125 mg 08/08/25 17:30 Carvedilol 3.125 Mg Tablet PO 09/06/25 17:29 BIDWM BRANDI Chlordiazepoxide HCl 50 mg 08/07/25 14:00 08/08/25 05:34 Chlordiazepoxide Hcl 25 Mg Capsule PO 08/12/25 13:59 50 mg Q8HR BRANDI Administration Folic Acid 1 mg 08/07/25 09:00 08/08/25 09:17 Folic Acid 1 Mg Tablet PO 09/06/25 08:59 1 mg QDAY BRANDI Administration Octreotide Acetate 1,000 mcg/ 102 mls @ 5.1 mls/hr 08/08/25 10:49 08/08/25 12:09 Sodium Chloride IV 08/13/25 10:48 50 mcg/hr .Q20H BRANDI 5.1 mls/hr Protocol Administration 50 MCG/HR Ceftriaxone Sodium/Dextrose 1 gm in 50 mls @ 100 mls/hr 08/08/25 10:49 08/08/25 11:31 Rocephin/D5w 1gm Iv Premix IV 08/15/25 10:48 100 mls/hr QDAY BRANDI Administration Lactulose 20 gm 08/07/25 06:00 08/08/25 05:34 Lactulose Syrup 20 Gm/30 Ml Udc PO 09/06/25 05:59 20 gm TID BRANDI Administration Protocol Lorazepam 1 mg 08/08/25 06:41 08/08/25 12:08 Lorazepam 0.5 Mg Tablet PO 08/11/25 22:43 1 mg Q4HR PRN Administration CIWA Score 8-15 Lorazepam 4 mg 08/08/25 06:41 Lorazepam 0.5 Mg Tablet PO 08/11/25 22:43 Q4HR PRN CIWA SCORE >20 Lorazepam 2 mg 08/08/25 06:42 Lorazepam 0.5 Mg Tablet PO 08/11/25 22:43 Q4HR PRN CIWA SCORE 16-20 Ondansetron HCl 4 mg 08/06/25 22:34 Ondansetron Inj 2 Mg/Ml Inj 2 Ml IVP 09/05/25 22:33 Q6H PRN NAUSEA OR VOMITING Protocol Pantoprazole Sodium 40 mg 08/08/25 09:00 08/08/25 09:17 Pantoprazole Inj 40 Mg Vial IVP 09/07/25 08:59 40 mg BID BRANDI Administration Thiamine HCl 100 mg 08/07/25 09:00 08/08/25 09:18 Thiamine 100 Mg Tablet PO 09/06/25 08:59 100 mg DAILY BRANDI Administration Plan Jose Wells 44M pmhx significant for EtOH induced cirrhosis with hx of GIB 2/2 esophageal varices, anemia and homelessness who presented to [facility] ED on 08/06 with headache after a mechanical fall while intoxicated, admitted for EtOH withdrawal on CIWA protocol. Notably pt has frequently been hospitalized with current presentations and has in past taken steps to quitting. Discussed with patient at length this admission regarding consequences of continuing to use alcohol. #Acute EtOH withdrawal Extremely extensive history of frequent admissions for alcohol intoxication. Scored 19, 20 in ED s/p IV phenobarbital in ED. Initially appeared tremulous, agitated, anxious and nausea with ativan CIWA protocol on 08/06. CIWA improving. Plan: - Librium 50mg PO q8h, will downtitrate with improvement in CIWA - CIWA protocol w/ PRN Ativan #Hepatic encephalopathy, improving #EtOH induced end-stage liver disease #Hematochezia #Hx of multiple grade II-III esophageal varicies bleed s/p banding Has hx of alcoholic cirrhosis with extensive drinking history with multiple admissions at [facility] for frequent intoxications as well as encephalopathy. Has hx of bleeding variceal hemorrhages, decreased synthetic liver dysfunction, elevated total bili (chronic). On presentation, withdrawing from EtOH as well as hepatic encephalopathy. Initially A&Ox2, oriented to name and date, with severe asterixis and abdominal distension. On admission also reported bloody sputum and black stools. 08/06 CT head showed no acute pathology, EKG sinus rhythm rate 90, QTc 478. Leading ddx of encephalopathy EtOH and hepatic. Bloody sputum concerning for UGIB with patient's strong history of esophageal bleeds requiring intervention. Admission MELD-Na in ED: 16,6% 3-month mortality and Child-Ham Class C, Life expectancy 1-3 years. Plan: - Continue lactulose 20 grams PO TID titrate to 2-3 BM/day, PO pantoprazole 40 mg, PO carvedilol 3.125 mg PO BID to reduce portal HTN, PO thiamine 100 mg QD, and PO folic acid 1 mg daily - Started octreotide ggt and ceftriaxone 1g for SBP prophylaxis iso possible UGIB - Restarted low sodium diet - Avoid hepatotoxic medications - CTM CBC, CMP #Normocytic anemia, chronic #Leukopenia #Thrombocytopenia Extensive history of normocytic anemia, fluctuating WBC count between wnl and neutropenia, and thrombocytopenia, dropping to as low as 20s in the past. On admission WBC 3.4, Hgb 7.7 MCV 87 and platelets 9 with +FOBT Most likely 2/2 EtOH-induced cirrhosis with combined hx of anemia from frequent GI bleeds. Iron studies show iron high 279, TIBC wnl 33, iron sat high 84, unsat iron binding low 53 and ferritin wnl 119 10/2 s/p 1u pRBC and 1u platelets with with minimal improvement of Hgb and Plt. 10/3 s/p 1u platelets with no improvement of platelet count likely 2/2 splenic sequestration and/or immediate consumption. Currently WBC stable, Hgb stable and platelets stable low Plan: - 1u platelets ready, however will unlikely transfuse another as patient does not have any signs of significant bleeding at this time - GI consulted, recs appreciated: no invasive GI workup at this time and will CTM labs, continue IV pantoprazole 40 mg BID - Transfuse RBC if Hgb <7 - Transfuse platelets if plt <10,000 to prevent spontaneous hemorrhage #Electrolyte abnormalities #Hypokalemia #Hyponatremia #Hypocalcemia #Hypomagnesemia Likely 2/2 cirrhosis and poor PO intake due to intoxication. Plan: - Recheck and replete as needed Hospital management: Lines: PIV Diet: hepatic Bowel: lactulose 20 mg TID GI prophylaxis: IV pantoprazole 40 mg BID DVT prophylaxis: SCDs iso GIB Disposition: tele for CIWA CODE STATUS: FULL CODE Plan of care discussed with attending Dr. Hester, and PGY-3, Dr. Ferrell. Amanda Silva, DO PGY-1 Internal Medicine Attending Provider Attestation/Addendum I have examined the patient, reviewed labs and imaging findings, discussed the case with the resident(s), and reviewed entered orders. I agree with the plan of care as outlined in this note, with these additional summaries/recommendations: Patient seen at bedside. He continues to be have alcohol withdrawal. CIWA elevated this morning and we will continue scheduled Librium and CIWA. Patient was counseled on alcohol cessation and offered resources including pamphlets for alcoholic Anonymous. Patient was also found to have elevated ammonia level and continue lactulose. Continue supplemental support with thiamine and folic acid. Patient was also noted to have severe thrombocytopenia most likely secondary to underlying liver disease. Despite platelet transfusion patient continues to have thrombocytopenia likely secondary to splenomegaly consuming platelets. If platelets drop below 10,000 then we will transfuse further. Leukopenia also present and if worsens we will consult hematology. Gastroenterology consulted for cirrhosis and suspected gastrointestinal bleed. Patient updated on the plan and in agreement. All questions answered to satisfaction. Please see residents note for additional details and management. Dr. Kacie MD
--- NOTE | 2025-08-08 19:26 | PD.IMPROG ---
Documentation for date of: 08/08/25 Subjective Subjective Interval history: Patient evaluated hemoglobin hematocrit 8.3 and 24.8 Very low platelet count of 14,000 Total bilirubin 5.3 AST ALT 79 and 13 and alk phos of 104 No signs of active bleeding Exam Vital Signs Temp Pulse Resp BP Pulse Ox O2 Del Method 98.0 F 104 H 13 110/83 96 Room Air 08/08/25 16:00 08/08/25 17:16 08/08/25 16:00 08/08/25 17:16 08/08/25 16:00 08/08/25 16:00 Objective Labs 08/08/25 04:29 08/08/25 04:29 Labs: Laboratory Results - last 24 hr 08/08/25 04:29 WBC 2.9 L RBC 2.83 L Hgb 8.3 L Hct 24.8 L MCV 88 MCH 29.3 MCHC 33.5 RDW Std Deviation 65.3 H Plt Count 14 L* Neut % (Auto) 66 Lymph % (Auto) 21 [place] % (Auto) 8 Eos % (Auto) 4 Baso % (Auto) 1 Neut # (Auto) 1.9 Lymph # (Auto) 0.6 L [place] # (Auto) 0.2 Eos # (Auto) 0.1 Baso # (Auto) 0.0 Immature Gran # (Auto) 0.01 H Absolute Nucleated RBC 0.02 H Immature Gran % 0 Nucleated RBC % 1 H Sodium 134 L D Potassium 3.3 L D Chloride 102 Carbon Dioxide 24.9 Anion Gap 7 BUN < 5 L Creatinine 0.7 Estim Creat Clear Calc 118.4 eGFR > 60 BUN/Creatinine Ratio 7 L Glucose 90 Calculated Osmolality 265 L Calcium 8.3 Corrected Calcium 8.8 Phosphorus 2.4 Magnesium 1.3 L Total Bilirubin 5.3 H D AST 79 H ALT 13 Alkaline Phosphatase 151 H Total Protein 7.1 Albumin 3.4 L Globulin 3.7 H Albumin/Globulin Ratio 0.9 L Misc Test Result Platelets confirmed Impressions Impression: Chronic liver disease secondary to continued consumption of alcohol Anemia blood loss but no active bleeding no need for an endoscopy at this time Thrombocytopenia due to hypersplenism Coagulopathy Advance diet as tolerated Assessment & Plan Time Spent With Patient Time: Total time spent is greater than 50% in coordination of care (as documented) at patient's floor/unit and/or counseling patient:
[2025-08-09] VITALS (9 sets, daily range): BP systolic 98–117; BP diastolic 60–75; PULSE 82–94; RESP 14–20; TEMP 36.2–36.8; O2SAT 96–99; BMI 26.9
[2025-08-09] MEDS: LACTULOSE SYRUP 20 GM/30 ML UDC PO ×3 (05:29→21:19)
[2025-08-09 05:34] LABS: Basophils # (Auto) 0.0 Thou/mm3 (0.0-0.2); Basophils % (Auto) 1 % (0-2.5); Eosinophils # (Auto) 0.2 Thou/mm3 (0.0-0.5); Eosinophils % (Auto) 6 % (0-10); Hematocrit 25.7 % (41.0-53.0); Immature Granulocytes Auto 0.02 Thou/mm3 (0.00-0.00); Lymphocytes # (Auto) 0.6 Thou/mm3 (1.0-4.8); Lymphocytes % (Auto) 15 % (10-50); Mean Corpuscular HGB Conc 33.1 g/dl (31.0-37.0); Mean Corpuscular Hemoglobin 29.4 pg (25.0-35.0); Mean Corpuscular Volume 89 fL (80-100); Monocytes # (Auto) 0.3 Thou/mm3 (0.0-0.8); Monocytes % (Auto) 8 % (0-12); Neutrophils # (Auto) 2.6 Thou/mm3 (1.8-7.7); Neutrophils % (Auto) 70 % (37-80); Nucleated Red Blood Cell # 0.03 Thou/mm3 (0.00-0.00); Nucleated Red Blood Cell % 1 /100 WBC (0); RDW Standard Deviation 66.2 fL (35.1-43.9); Red Blood Count 2.89 Miln/mm3 (4.50-5.90); White Blood Count 3.8 Thou/mm3 (3.8-10.6)
[2025-08-09 05:35] LABS: Hemoglobin 8.5 g/dL (13.5-16.0)
[2025-08-09 05:36] LABS: Platelet Count 16 Thou/mm3 (140-440); Slide Review Platelets confirmed
[2025-08-09] MEDS: OCTREOTIDE ACET INJ 1,000 MCG in SODIUM CHLORIDE 0.9% 100 ML 5.1 MCG IV (05:40)
[2025-08-09 05:54] LABS: Alanine Aminotransferase 12 U/L (10-49); Albumin, Serum 3.2 gm/dL (3.5-5.0); Albumin/Globulin Ratio 0.8 (1.2-2.2); Alkaline Phosphatase 153 U/L (46-116); Anion Gap 11 (7-16); Aspartate Amino Transferase 64 U/L (0-34); BUN/Creatinine Ratio 7 Ratio (12-20); Bilirubin,Total 4.4 mg/dL (0.3-1.2); Blood Urea Nitrogen < 5 mg/dL (9-23); Calcium 8.2 mg/dL (8.3-10.6); Calcium (Corrected) 8.8 mg/dL (8.5-10.1); Carbon Dioxide 21.4 mMol/L (20.0-31.0); Chloride 100 mMol/L (98-107); Creatinine (Component) 0.7 mg/dL (0.6-1.3); Estimated Creatinine Clearance 124.9 mL/min (>60); Globulin 3.8 gm/dL (2.3-3.5); Glucose 114 mg/dL (74-106); Magnesium 1.2 mg/dL (1.6-2.6); Osmolality,Calculated 262 (275-295); Phosphorous 3.3 mg/dL (2.4-5.1); Potassium 4.1 mMol/L (3.4-5.1); Sodium 132 mMol/L (136-145); Total Protein 7.0 gm/dL (5.7-8.2); eGFR > 60 See Note
[2025-08-09] MEDS: INSULIN LISPRO (AdmeLOG) 1 UNIT/0.01 ML UNIT SC (08:41)
[2025-08-09] MEDS: FOLIC ACID 1 MG TABLET PO (08:42)
[2025-08-09] MEDS: THIAMINE 100 MG TABLET PO (08:42)
[2025-08-09] MEDS: cefTRIAXone/D5w 1gm IV premix 1 GM/50 ML BAG IV (08:42)
[2025-08-09] MEDS: Magnesium Sulfate 4 GM Ivpb 4 GM/50 ML BAG IV (09:56)
--- NOTE | 2025-08-09 13:56 | ESPR_ITS ---
Documentation for date of: 08/09/25 Senior resident attestation: Patient evaluated and examined at the bedside, plan of care discussed with rest of the team including my attending physician, except as noted. The patient is steadily improving on PO librium, CIWA score reported as mild. anticipate discharge in the am . Quresh PGY3 Subjective Subjective Interval history: Overnight, CIWA 3 this a.m. 0. Patient seen and examined at bedside. Patient denies anxiety, diaphoresis or tremors. Requesting to go home. Endorses improvement in black tarry stools, stating that they are brown and black. Denies hematemesis. Vitals and labs reviewed. WBC increased from 2.9-3.8. Hemoglobin stable low 8.5. Platelets stable at 16. Magnesium 1.2, repleted with 4 g IV. T bilirubin downtrending at 4.4 today. De-escalate from Librium 50 mg every 8 hours to 50 mg twice daily. Anticipate for discharge tomorrow. account services coordinator attempted to be contacted for a referral. Continue lactulose, Tubersol, carvedilol and vitamins as well as octreotide and ceftriaxone. Exam Vital Signs Temp Pulse Resp BP Pulse Ox O2 Del Method 97.1 F 86 14 108/75 96 Room Air 08/09/25 12:00 08/09/25 12:00 08/09/25 12:00 08/09/25 12:00 08/09/25 12:00 08/09/25 12:00 Narrative Exam GENERAL: AOx3, no acute distress, fatiuged, malodorous, not diaphoretic or anxious HEENT: NC/AT, mucous membranes dry, bilateral sclera anicteric CARDIOVASCULAR: regular rhythm and rate, S1/S2 present, no murmurs appreciated PULMONARY: clear to auscultation bilaterally, no rales/rhonchi/wheezes ABDOMINAL: soft, non-tender, non-distended, no rebound/guarding, bowel sounds present EXTREMITIES: no peripheral edema, no tremors SKIN: warm and dry, intact, no rashes NEURO: CN II-XII grossly intact, no focal deficits, alert, following commands Objective Labs 08/10/25 05:10 08/10/25 05:10 Labs: Laboratory Results - last 24 hr 08/06/25 08/09/25 17:18 04:45 WBC 3.8 RBC 2.89 L Hgb 8.5 L Hct 25.7 L MCV 89 MCH 29.4 MCHC 33.1 RDW Std Deviation 66.2 H Plt Count 16 L* Neut % (Auto) 70 Lymph % (Auto) 15 [place] % (Auto) 8 Eos % (Auto) 6 Baso % (Auto) 1 Neut # (Auto) 2.6 Lymph # (Auto) 0.6 L [place] # (Auto) 0.3 Eos # (Auto) 0.2 Baso # (Auto) 0.0 Immature Gran # (Auto) 0.02 H Absolute Nucleated RBC 0.03 H Immature Gran % 1 H Nucleated RBC % 1 H Sodium 132 L Potassium 4.1 D Chloride 100 Carbon Dioxide 21.4 Anion Gap 11 BUN < 5 L Creatinine 0.7 Estim Creat Clear Calc 124.9 eGFR > 60 BUN/Creatinine Ratio 7 L Glucose 114 H Calculated Osmolality 262 L Calcium 8.2 L Corrected Calcium 8.8 Phosphorus 3.3 Magnesium 1.2 L Total Bilirubin 4.4 H D AST 64 H ALT 12 Alkaline Phosphatase 153 H Total Protein 7.0 Albumin 3.2 L Globulin 3.8 H Albumin/Globulin Ratio 0.8 L Misc Test Result Platelets confirmed Blood Type O Positive Antibody Screen NEGATIVE Crossmatch See Detail Blood Bank Wristband ID Yes Blood Bank Comment PLATP Ready Quality Measures Quality Measures VTE prophylaxis Assessment & Plan Assessment Current Active Medications: Generic Name Dose Route Start Last Admin Trade Name Freq PRN Reason Stop Dose Admin Carvedilol 3.125 mg 08/08/25 17:30 08/09/25 08:41 Carvedilol 3.125 Mg Tablet PO 09/06/25 17:29 3.125 mg BIDWM BRANDI Administration Chlordiazepoxide HCl 50 mg 08/09/25 09:00 08/09/25 09:58 Chlordiazepoxide Hcl 25 Mg Capsule PO 08/14/25 08:59 50 mg BID BRANDI Administration Dextrose 25 ml 08/08/25 18:54 Dextrose 50%-Water Inj 50 Ml Syringe IV 09/07/25 18:53 Q15MIN PRN BG 50-70 responsive npo pt Dextrose 50 ml 08/08/25 18:54 Dextrose 50%-Water Inj 50 Ml Syringe IV 09/07/25 18:53 Q15MIN PRN BG <50 OR BG <70 & pt unresponsive Folic Acid 1 mg 08/07/25 09:00 08/09/25 08:42 Folic Acid 1 Mg Tablet PO 09/06/25 08:59 1 mg QDAY BRANDI Administration Glucagon 1 mg 08/08/25 18:54 Glucagon Inj 1 Mg Vial IM Q15MIN PRN BG <70, and no IV access Octreotide Acetate 1,000 mcg/ 102 mls @ 5.1 mls/hr 08/08/25 10:49 08/09/25 05:40 Sodium Chloride IV 08/13/25 10:48 50 mcg/hr .Q20H BRANDI 5.1 mls/hr Protocol Administration 50 MCG/HR Ceftriaxone Sodium/Dextrose 1 gm in 50 mls @ 100 mls/hr 08/08/25 10:49 08/09/25 08:42 Rocephin/D5w 1gm Iv Premix IV 08/15/25 10:48 100 mls/hr QDAY BRANDI Administration Insulin Human Lispro 0 unit 08/09/25 07:30 08/09/25 11:16 Insulin Lispro (Admelog) 1 Unit/0.01 Ml Unit SC 09/08/25 07:29 Not Given AC BRANDI Protocol Lactulose 20 gm 08/07/25 06:00 08/09/25 05:29 Lactulose Syrup 20 Gm/30 Ml Udc PO 09/06/25 05:59 20 gm TID BRANDI Administration Protocol Lorazepam 1 mg 08/08/25 06:41 08/08/25 12:08 Lorazepam 0.5 Mg Tablet PO 08/11/25 22:43 1 mg Q4HR PRN Administration CIWA Score 8-15 Lorazepam 4 mg 08/08/25 06:41 Lorazepam 0.5 Mg Tablet PO 08/11/25 22:43 Q4HR PRN CIWA SCORE >20 Lorazepam 2 mg 08/08/25 06:42 Lorazepam 0.5 Mg Tablet PO 08/11/25 22:43 Q4HR PRN CIWA SCORE 16-20 Ondansetron HCl 4 mg 08/06/25 22:34 Ondansetron Inj 2 Mg/Ml Inj 2 Ml IVP 09/05/25 22:33 Q6H PRN NAUSEA OR VOMITING Protocol Pantoprazole Sodium 40 mg 08/08/25 09:00 08/09/25 08:42 Pantoprazole Inj 40 Mg Vial IVP 09/07/25 08:59 40 mg BID BRANDI Administration Thiamine HCl 100 mg 08/07/25 09:00 08/09/25 08:42 Thiamine 100 Mg Tablet PO 09/06/25 08:59 100 mg DAILY BRANDI Administration Plan Jose Wells 44M pmhx significant for EtOH induced cirrhosis with hx of GIB 2/2 esophageal varices, anemia and homelessness who presented to [facility] ED on 08/06 with headache after a mechanical fall while intoxicated, admitted for EtOH withdrawal on CIWA protocol. Notably pt has frequently been hospitalized with current presentations and has in past taken steps to quitting. Discussed with patient at length this admission regarding consequences of continuing to use alcohol. #Acute EtOH withdrawal Extremely extensive history of frequent admissions for alcohol intoxication. Scored 19, 20 in ED s/p IV phenobarbital in ED. Initially appeared tremulous, agitated, anxious and nausea with ativan CIWA protocol on 08/06. CIWA improving. Plan: - Deescalate Librium 50mg PO from q8h to BID - CIWA protocol w/ PRN Ativan #Hepatic encephalopathy, improving #EtOH induced end-stage liver disease #Hematochezia #Hx of multiple grade II-III esophageal varicies bleed s/p banding Has hx of alcoholic cirrhosis with extensive drinking history with multiple admissions at [facility] for frequent intoxications as well as encephalopathy. Has hx of bleeding variceal hemorrhages, decreased synthetic liver dysfunction, elevated total bili (chronic). On presentation, withdrawing from EtOH as well as hepatic encephalopathy. Initially A&Ox2, oriented to name and date, with severe asterixis and abdominal distension. On admission also reported bloody sputum and black stools. 08/06 CT head showed no acute pathology, EKG sinus rhythm rate 90, QTc 478. Leading ddx of encephalopathy EtOH and hepatic. Bloody sputum concerning for UGIB with patient's strong history of esophageal bleeds requiring intervention. Admission MELD-Na in ED: 16,6% 3-month mortality and Child-Ham Class C, Life expectancy 1-3 years. Plan: - Continue lactulose 20 grams PO TID titrate to 2-3 BM/day, PO pantoprazole 40 mg, PO carvedilol 3.125 mg PO BID to reduce portal HTN, PO thiamine 100 mg QD, and PO folic acid 1 mg daily - Continue octreotide ggt and ceftriaxone 1g for SBP prophylaxis - Restarted low sodium diet - Avoid hepatotoxic medications - CTM CBC, CMP - account services coordinator for AA information #Normocytic anemia, chronic #Leukopenia #Thrombocytopenia Extensive history of normocytic anemia, fluctuating WBC count between wnl and neutropenia, and thrombocytopenia, dropping to as low as 20s in the past. On admission WBC 3.4, Hgb 7.7 MCV 87 and platelets 9 with +FOBT Most likely 2/2 EtOH-induced cirrhosis with combined hx of anemia from frequent GI bleeds. Iron studies show iron high 279, TIBC wnl 33, iron sat high 84, unsat iron binding low 53 and ferritin wnl 119 10/2 s/p 1u pRBC and 1u platelets with with minimal improvement of Hgb and Plt. 10/3 s/p 1u platelets with no improvement of platelet count likely 2/2 splenic sequestration and/or immediate consumption. Currently WBC stable, Hgb stable and platelets stable low Plan: - 1u platelets ready, however will unlikely transfuse another as patient does not have any signs of significant bleeding at this time - GI consulted, recs appreciated: no invasive GI workup at this time and will CTM labs, continue IV pantoprazole 40 mg BID - Transfuse RBC if Hgb <7 - Transfuse platelets if plt <10,000 to prevent spontaneous hemorrhage #Electrolyte abnormalities #Hypokalemia #Hyponatremia #Hypocalcemia #Hypomagnesemia Likely 2/2 cirrhosis and poor PO intake due to intoxication. Plan: - Recheck and replete as needed Hospital management: Lines: PIV Diet: hepatic Bowel: lactulose 20 mg TID GI prophylaxis: IV pantoprazole 40 mg BID DVT prophylaxis: SCDs iso GIB Disposition: tele for [facility], plan for dc tomorrow CODE STATUS: FULL CODE Plan of care discussed with attending Dr. Hester, and PGY-3, Dr. Ferrell. Amanda Silva, DO PGY-1 Internal Medicine Attending Provider Attestation/Addendum I have examined the patient, reviewed labs and imaging findings, discussed the case with the resident(s), and reviewed entered orders. I agree with the plan of care as outlined in this note, with these additional summaries/recommendations: Patient seen at bedside. No acute overnight events. He continues to be have alcohol withdrawal although appears to be improving. We will decrease Librium dose today and continue CIWA. Patient was counseled on alcohol cessation and offered resources including pamphlets for alcoholic Anonymous. Patient was also found to have elevated ammonia level and continue lactulose. Continue supplemental support with thiamine and folic acid. Patient was also noted to have severe thrombocytopenia most likely secondary to underlying liver disease. Despite platelet transfusion patient continues to have thrombocytopenia likely secondary to splenomegaly consuming platelets. If platelets drop below 10,000 then we will transfuse further. Leukopenia present and improving. Gastroenterology consulted for cirrhosis and suspected gastrointestinal bleed. Patient updated on the plan and in agreement. All questions answered to satisfaction. Please see residents note for additional details and management. Dr. Kacie MD
--- NOTE | 2025-08-09 15:58 | PC.SS ---
Rounding: Decrease librium, poss DC tomorrow 08/10
--- NOTE | 2025-08-09 19:09 | PD.IMPROG ---
Documentation for date of: 08/09/25 Subjective Subjective Interval history: Hemoglobin hematocrit 8.5 and 25.7 Platelet count 16,000 No active bleeding Exam Vital Signs Temp Pulse Resp BP Pulse Ox O2 Del Method 98.1 F 82 16 104/71 97 Room Air 08/09/25 16:00 08/09/25 16:46 08/09/25 16:00 08/09/25 16:46 08/09/25 16:00 08/09/25 16:00 Objective Labs 08/09/25 04:45 08/09/25 04:45 Labs: Laboratory Results - last 24 hr 08/06/25 08/09/25 17:18 04:45 WBC 3.8 RBC 2.89 L Hgb 8.5 L Hct 25.7 L MCV 89 MCH 29.4 MCHC 33.1 RDW Std Deviation 66.2 H Plt Count 16 L* Neut % (Auto) 70 Lymph % (Auto) 15 [place] % (Auto) 8 Eos % (Auto) 6 Baso % (Auto) 1 Neut # (Auto) 2.6 Lymph # (Auto) 0.6 L [place] # (Auto) 0.3 Eos # (Auto) 0.2 Baso # (Auto) 0.0 Immature Gran # (Auto) 0.02 H Absolute Nucleated RBC 0.03 H Immature Gran % 1 H Nucleated RBC % 1 H Sodium 132 L Potassium 4.1 D Chloride 100 Carbon Dioxide 21.4 Anion Gap 11 BUN < 5 L Creatinine 0.7 Estim Creat Clear Calc 124.9 eGFR > 60 BUN/Creatinine Ratio 7 L Glucose 114 H Calculated Osmolality 262 L Calcium 8.2 L Corrected Calcium 8.8 Phosphorus 3.3 Magnesium 1.2 L Total Bilirubin 4.4 H D AST 64 H ALT 12 Alkaline Phosphatase 153 H Total Protein 7.0 Albumin 3.2 L Globulin 3.8 H Albumin/Globulin Ratio 0.8 L Misc Test Result Platelets confirmed Blood Type O Positive Antibody Screen NEGATIVE Crossmatch See Detail Blood Bank Wristband ID Yes Blood Bank Comment PLATP Ready Impressions Impression: Chronic liver disease secondary to alcohol Improved metabolic/hepatic encephalopathy Continue current management No plans for any upper endoscopy Assessment & Plan Time Spent With Patient Time: Total time spent is greater than 50% in coordination of care (as documented) at patient's floor/unit and/or counseling patient:
[2025-08-10] MEDS: OCTREOTIDE ACET INJ 1,000 MCG in SODIUM CHLORIDE 0.9% 100 ML 5.1 MCG IV (03:47)
[2025-08-10 04:00] VITALS: BP 104/77; PULSE 77; PULSE 85; RESP 12; TEMP 36.7; O2SAT 97
[2025-08-10] MEDS: LACTULOSE SYRUP 20 GM/30 ML UDC PO (05:24)
[2025-08-10 06:00] VITALS: BMI 26.9
[2025-08-10 06:06] LABS: Basophils # (Auto) 0.0 Thou/mm3 (0.0-0.2); Basophils % (Auto) 1 % (0-2.5); Eosinophils # (Auto) 0.2 Thou/mm3 (0.0-0.5); Eosinophils % (Auto) 5 % (0-10); Hematocrit 24.7 % (41.0-53.0); Immature Granulocytes Auto 0.01 Thou/mm3 (0.00-0.00); Lymphocytes # (Auto) 0.6 Thou/mm3 (1.0-4.8); Lymphocytes % (Auto) 19 % (10-50); Mean Corpuscular HGB Conc 33.2 g/dl (31.0-37.0); Mean Corpuscular Hemoglobin 29.6 pg (25.0-35.0); Mean Corpuscular Volume 89 fL (80-100); Monocytes # (Auto) 0.3 Thou/mm3 (0.0-0.8); Monocytes % (Auto) 10 % (0-12); Neutrophils # (Auto) 2.2 Thou/mm3 (1.8-7.7); Neutrophils % (Auto) 65 % (37-80); Nucleated Red Blood Cell # 0.00 Thou/mm3 (0.00-0.00); Nucleated Red Blood Cell % 0 /100 WBC (0); RDW Standard Deviation 66.1 fL (35.1-43.9); Red Blood Count 2.77 Miln/mm3 (4.50-5.90); White Blood Count 3.4 Thou/mm3 (3.8-10.6)
[2025-08-10 06:09] LABS: Hemoglobin 8.2 g/dL (13.5-16.0)
[2025-08-10 06:10] LABS: Platelet Count 19 Thou/mm3 (140-440)
[2025-08-10 06:25] LABS: Slide Review Platelets confirmed
[2025-08-10 06:32] LABS: Alanine Aminotransferase 11 U/L (10-49); Albumin, Serum 3.5 gm/dL (3.5-5.0); Albumin/Globulin Ratio 0.9 (1.2-2.2); Alkaline Phosphatase 162 U/L (46-116); Anion Gap 11 (7-16); Aspartate Amino Transferase 57 U/L (0-34); BUN/Creatinine Ratio 8 Ratio (12-20); Bilirubin,Total 3.3 mg/dL (0.3-1.2); Blood Urea Nitrogen < 5 mg/dL (9-23); Calcium 8.9 mg/dL (8.3-10.6); Calcium (Corrected) 9.3 mg/dL (8.5-10.1); Carbon Dioxide 23.6 mMol/L (20.0-31.0); Chloride 98 mMol/L (98-107); Creatinine (Component) 0.6 mg/dL (0.6-1.3); Estimated Creatinine Clearance 145.8 mL/min (>60); Globulin 3.8 gm/dL (2.3-3.5); Glucose 105 mg/dL (74-106); Magnesium 1.2 mg/dL (1.6-2.6); Osmolality,Calculated 263 (275-295); Phosphorous 4.0 mg/dL (2.4-5.1); Potassium 3.7 mMol/L (3.4-5.1); Sodium 133 mMol/L (136-145); Total Protein 7.3 gm/dL (5.7-8.2); eGFR > 60 See Note
[2025-08-10 08:00] VITALS: BP 110/72; PULSE 85; PULSE 88; RESP 18; TEMP 36.4; O2SAT 98
[2025-08-10] MEDS: cefTRIAXone/D5w 1gm IV premix 1 GM/50 ML BAG IV (08:23)
[2025-08-10] MEDS: FOLIC ACID 1 MG TABLET PO (08:23)
[2025-08-10 08:24] VITALS: BP 110/72; PULSE 88
[2025-08-10] MEDS: INSULIN LISPRO (AdmeLOG) 1 UNIT/0.01 ML UNIT SC (08:24)
[2025-08-10] MEDS: Magnesium Sulfate 4 GM Ivpb 4 GM/50 ML BAG IV (08:28)
[2025-08-10] MEDS: THIAMINE 100 MG TABLET PO (08:31)
--- NOTE | 2025-08-10 09:10 | PD.RESDS ---
Planned Discharge Date 08/10/25 DS: Providers Provider Date of admission: 08/06/25 22:34 Primary care physician: Cezar Adams MD Admitting Provider: Naz Chan MD Attending Provider on Admission: Robin Hester MD Consults: 08/07/25 10:44 Consult to Gastroenterology Routine Comment: Consulting Provider: Supriya Perla Attending Provider on DC: Roya Lin Discharging Provider: Roya Lin Hospital Course Hospital Course Hospital course: Hemoglobin hematocrit 8.5 and 25.7 Platelet count 16,000 No active bleeding Time Spent with Patient Time attestation: Total time spent providing and/or coordinating discharge services: Exam Vital Signs Temp Pulse Resp BP Pulse Ox O2 Del Method 97.6 F 88 18 110/72 98 Room Air 08/10/25 08:00 08/10/25 08:24 08/10/25 08:00 08/10/25 08:24 08/10/25 08:00 08/10/25 08:00 Discharge Plan Prescriptions/Referrals Prescriptions/Med Rec: No Action carvedilol 3.125 mg Tablet 3.125 mg PO BIDWM Qty: 60 1RF folic acid 1 mg Tablet 1 mg PO QDAY Qty: 60 0RF pantoprazole 40 mg tablet,delayed release (DR/EC) 40 mg PO QDAY Qty: 90 0RF thiamine mononitrate (vit B1) 100 mg Tablet 100 mg PO QDAY Qty: 30 0RF gabapentin 400 mg capsule 400 mg PO Q8HR PRN (Reason: shakes) Patient Comments: TOME 1 C PSULA POR V A ORAL CADA OCHO HORAS CUANDO SEA NECESARIO FOR SHAKES FROM ALCOHOL WITHDRAWAL ferrous sulfate 325 mg (65 mg iron) tablet 325 mg PO QDAY Patient Comments: TOME 1 TABLETA POR V A ORAL TODOS LOS D ascorbic acid (vitamin C) 250 mg tablet 250 mg PO QDAY Patient Comments: TOME 1 TABLETA POR V A ORAL TODOS LOS D FOR 30 DAYS acamprosate 333 mg tablet,delayed release (DR/EC) 333 mg PO QDAY Patient Comments: TOME DOS TABLETAS POR V A ORAL DOS VECES AL D A Referrals: Cezar Adams MD [Primary Care Provider, Family Practice] Patient/Caregiver Discharge Instructions Print Language: Serbian
--- NOTE | 2025-08-10 13:19 | ESDS_ITS ---
<Statement entered by Sawyer Cummings MD - 08/10/25 16:35> Patient was seen and evaluated at bedside this morning. No acute overnight events. Patient's CIWA score was 0 and he had no visual auditory hallucinations. Patient at this time was counseled thoroughly about his alcohol consumption and the need to abstain from alcohol use. Also patient's stool improved and were not dark in color. At time of discharge patient was stable enough to be discharged home. I have reviewed the note and agree with the medical student's assessment & plan with exceptions as above. I have personally reviewed labs, imaging, home meds/prior records, examined the patient, formulated and discussed management plan with my attending Sawyer Cummings PGY2 Disclaimer: Even though this this note was dictated by speech recognition and even though it was carefully revised there may still be minor errors in machinist/machine builder due to voice recognition software. General: A/O x3, no acute distress, well-nourished, well-developed Eyes: PERRL, EOMI. Anicteric, vision grossly intact. Ears: No ear pain, no ear discharge, Hearing grossly intact. Nose: No nasal discharge. Mouth/Throat: Moist mucous membranes, no redness, no lesions. Neck: Neck supple, non-tender, no cervical lymphadenopathy. Lungs: Clear DIONNA to auscultation and percussion, No accessory muscle use. Cardio: Normal S1/S2, regular rhythm, no murmurs, no JVD Abdomen: Soft, non-tender, no palpable masses, peristalsis present, no guarding or rebound. Extremities: Symmetrical, no significant deformities, no peripheral edema , non-tender, peripheral pulses presents. Skin: No rashes, no lesions, warm to touch. Neuro: No focal neurological deficits. Psych: Cooperative, appropriate mood and effect. Planned Discharge Date 08/10/25 DS: Providers Provider Date of admission: 08/06/25 22:34 Primary care physician: Cezar Adams MD Admitting Provider: Naz Chan MD Attending Provider on Admission: Robin Hester MD Consults: 08/07/25 10:44 Consult to Gastroenterology Routine Comment: Consulting Provider: Supriya Perla Attending Provider on DC: Robin Hester MD Discharging Provider: Robin Hester MD DS: Diagnosis Problem List Completed Was Problem List Reviewed/Reconciled?: Yes Hospital Course Hospital Course Hospital course: Mr. Jose Wells is a 44 y/o Italian-speaking male with PMHx of EtOH induced cirrhosis c/b varices, anemia, upper GI bleed, and homelessness who presented to the ED on 08/06 with headache after a mechanical fall while intoxicated. He was intoxicated within the ED. CIWA score at this time was 19,20. Reported bloody sputum and melena the day before admit. Labs in ED revealed pancytopenia, EKG and imaging were unremarkable. Physical exam showed abdomen limited shifting dullness, mild distension, asterixis. He was A&Ox2, alert only to name and birthday. He was placed on CIWA protocol w/ PRN Ativan and admitted for management of intoxication and alcohol withdrawal. Notably, this pt has been hospitalized multiple times in the past for similar presentations and has received multiple endoscopies. He has expressed interest in quitting alcohol in the past however is currently drinking at time of admission 2+ beers daily. Pt was started on Librium 50mg TID daily to aid with withdrawal, as well as lactulose, thiamine, carvedilol, folic acid, octreotide, ceftriaxone. Over course of admission symptoms improved consistently, CIWA trended down consi stently. During stay pt reported dark, tarry stools concerning for GI bleed, however per GI workup with Dr. Perla there were no signs of active bleeding and no endoscopy necessary. Upon discharge pt is hemodynamically stable, CIWA score is 0, and he has been educated at length regarding dangers of continuing to drink as well as future options for pursuing abstinence. He has no new medications. DC instructions are as below: #Acute EtOH withdrawal #Hepatic encephalopathy, improving #EtOH induced end-stage liver disease #Hematochezia #Hx of multiple grade II-III esophageal varices bleed s/p banding #Normocytic anemia, chronic #Leukopenia #Thrombocytopenia #Electrolyte abnormalities #Hypokalemia #Hyponatremia #Hypocalcemia #Hypomagnesemia - Follow up with your primary care physician within 2 to 3 days of discharge - Recommend follow-up with a final finisher as an outpatient - We strongly recommend that you refrain from alcohol consumption at this time, as alcohol consumption has been a problem in the past and can lead to liver disease - Continue taking all home medications as prescribed - Return to the emergency department if symptoms persist or worsen ----- Plan discussed with attending physician Dr. Kacie Bell, Medical Student OMTIESHA Status at Discharge Overall status at discharge: patient is progressing back to baseline Time Spent with Patient Time attestation: Total time spent providing and/or coordinating discharge services: Time spent: Greater than 30 minutes Exam Vital Signs Temp Pulse Resp BP Pulse Ox O2 Del Method 97.6 F 88 18 110/72 98 Room Air 08/10/25 08:00 08/10/25 08:24 08/10/25 08:00 08/10/25 08:24 08/10/25 08:00 08/10/25 08:00 Narrative Exam General: A/O x3, no acute distress, well-nourished, well-developed Eyes: PERRL, EOMI. Anicteric, vision grossly intact. Ears: No ear pain, no ear discharge, Hearing grossly intact. Nose: No nasal discharge. Mouth/Throat: Moist mucous membranes, no redness, no lesions. Neck: Neck supple, non-tender, no cervical lymphadenopathy. Lungs: Clear DIONNA to auscultation and percussion, No accessory muscle use. Cardio: Normal S1/S2, regular rhythm, no murmurs, no JVD Abdomen: Soft, non-tender, no palpable masses, peristalsis present, no guarding or rebound. Extremities: Symmetrical, no significant deformities, no peripheral edema , non-tender, peripheral pulses presents. Skin: No rashes, no lesions, warm to touch. Neuro: No focal neurological deficits. Psych: Cooperative, appropriate mood and effect. Discharge Plan Plan Patient Disposition: HOME (Self Care) Care Plan Goals: William un seguimiento con wyatt m?dico de atenci?n primaria dentro de los 2 a 3 d?as posteriores al patricia. Recomendar seguimiento con Gastroenter?logo fausto paciente ambulatorio. Le recomendamos encarecidamente que se abstenga de consumir alcohol en vibha momento, dado que wyatt consumo de alcohol polanco sido un problema en el pasado y puede provocar enfermedades hep?paola. Contin?e tomando todos los medicamentos caseros seg?n lo recetado. Regrese al servicio de urgencias si los s?ntomas persisten o empeoran. Prescriptions/Referrals Prescriptions/Med Rec: Continued carvedilol 3.125 mg Tablet 3.125 mg PO BIDWM Qty: 60 1RF folic acid 1 mg Tablet 1 mg PO QDAY Qty: 60 0RF pantoprazole 40 mg tablet,delayed release (DR/EC) 40 mg PO QDAY Qty: 90 0RF thiamine mononitrate (vit B1) 100 mg Tablet 100 mg PO QDAY Qty: 30 0RF gabapentin 400 mg capsule 400 mg PO Q8HR PRN (Reason: shakes) Patient Comments: TOME 1 C PSULA POR V A ORAL CADA OCHO HORAS CUANDO SEA NECESARIO FOR SHAKES FROM ALCOHOL WITHDRAWAL ferrous sulfate 325 mg (65 mg iron) tablet 325 mg PO QDAY Patient Comments: TOME 1 TABLETA POR V A ORAL TODOS LOS D ascorbic acid (vitamin C) 250 mg tablet 250 mg PO QDAY Patient Comments: TOME 1 TABLETA POR V A ORAL TODOS LOS D FOR 30 DAYS acamprosate 333 mg tablet,delayed release (DR/EC) 333 mg PO QDAY Patient Comments: TOME DOS TABLETAS POR V A ORAL DOS VECES AL D A Referrals: Cezar Adams MD [Primary Care Provider, Family Practice] Patient/Caregiver Discharge Instructions Other Discharge Activity Instructions:: William un seguimiento con wyatt m?dico de atenci?n primaria dentro de los 2 a 3 d?as posteriores al patricia. Recomendar seguimiento con Gastroenter?logo fausto paciente ambulatorio. Le recomendamos encarecidamente que se abstenga de consumir alcohol en vibha momento, dado que wyatt consumo de alcohol polanco sido un problema en el pasado y puede provocar enfermedades hep?paola. Contin?e tomando todos los medicamentos caseros seg?n lo recetado. Regrese al servicio de urgencias si los s?ntomas persisten o empeoran. Education Materials: Social Drinking vs Problem Drinking, Alcohol Withdrawal: What to Expect Print Language: Italian Stand Alone Forms: [employer] Award Info., Patient Portal Info Letter Discharge Order Discharge Orders: Discharge (Routine); Ordered 08/10/25 Ordered By: Sawyer Cummings Quality Discharge Quality Measures none MD Attestestation MD Attestation I have examined the patient, reviewed labs and imaging findings, discussed the case with the resident(s), and reviewed entered orders. I agree with the plan of care as outlined in this note. Time Spent: [address] Kacie MD
[2025-08-14 06:58] LABS: Folate, RBC* >1000 ng/mL RBC (>280)
== END 2025-08-10 11:55 | disposition home or self-care (01) | DRG 775 ==
LOC: SERX 22:02 → SERHOLD 22:52 → S2NX 23:28
PROVIDERS: Nurse Practitioner Family; Student in an Organized Health Care Education/Training Program; Admitting Provider Student in an Organized Health Care Education/Training Program; Emergency Provider Family Medicine; PCP Family Medicine; Visit Provider Student in an Organized Health Care Education/Training Program
DX: F10.939 Alcohol use, unspecified with withdrawal, unspecified (principal); Z59.01 Sheltered homelessness; Y90.8 Blood alcohol level of 240 mg/100 ml or more; W19.XXXA Unspecified fall, initial encounter; R51.9 Headache, unspecified; K70.30 Alcoholic cirrhosis of liver without ascites; K76.82 Hepatic encephalopathy; K72.10 Chronic hepatic failure without coma; D61.818 Other pancytopenia; R44.2 Other hallucinations; R44.1 Visual hallucinations; D50.9 Iron deficiency anemia, unspecified; R19.5 Other fecal abnormalities; D68.9 Coagulation defect, unspecified; E83.42 Hypomagnesemia; E83.51 Hypocalcemia; E87.1 Hypo-osmolality and hyponatremia; E87.6 Hypokalemia; K92.1 Melena; G93.41 Metabolic encephalopathy; K76.6 Portal hypertension; N18.6 End stage renal disease; Z79.899 Other long term (current) drug therapy; Z87.891 Personal history of nicotine dependence
CPT/HCPCS: 36415; 36430; 70450; 71045; 80053; 80307; 80320; 81001; 82270; 82607; 82728; 82747; 83540; 83550; 83735; 83880; 84100; 85025; 85046; 85610; 85730; 86850; 86900; 86901; 86921; 86922; 86965; 87081; 87811; 93005; 96361; 96365; 96375; 99284; A4216; A4649; J0696; J1200; J1815; J2354; J2470; J2560; J3411; J3430; J3475; J3490; J7050; J7120; P9016; P9035; A9270; G0480

== ENCOUNTER 2025-08-16 18:18 | Emergency (ER) | payer MEDICAID, SELFPAY ==
[2025-08-16 18:28] VITALS: PULSE 103; O2SAT 99; BMI 26.9
--- NOTE | 2025-08-16 18:35 | EKG_ITS ---
[facility] Test Date: 2025-08-16 Pat Name: KOLBY RON Department: Room: - Gender: Male Application Development Team Lead: : 1980 Requested By: Surendra Peck Order Number: [id number] Reading MD: Surendra Peck Measurements Intervals [place] Rate: 97 P: 45 ID: [id number] QRS: -11 QRSD: 105 T: 29 QT: 370 QTc: 471 Interpretive Statements SINUS RHYTHM Compared to ECG 08/06/2025 13:36:28 T-wave abnormality no longer present /store/S0/[id number]
[2025-08-16 18:36] VITALS: BP 107/68; PULSE 99; RESP 14; TEMP 36.7; O2SAT 17
--- NOTE | 2025-08-16 18:37 | PD.EDADULT ---
ED General RME/HPI General Chief complaint: Recheck/Abnormal Lab/Rx Stated complaint: HYPOTENSION Time Seen by Provider: 08/16/25 18:22 Arrival date/time: 08/16/25 18:18 CC: Hypotension alcohol abuse and chest pain HPI ongoing for today. The patient is a frequent visitor to the emergency room for alcohol intoxication EMS report pressures of 90/50, patient is awake alert slurred speech stating he has been drinking all day and has left chest pain underneath the left nipple at 8% . Patient denies shortness of breath or difficulty breathing. Related Data Home Medications ?Medication ?Instructions ?Recorded ?Confirmed acamprosate 333 mg tablet,delayed 333 mg PO QDAY 08/07/25 08/07/25 release ascorbic acid (vitamin C) 250 mg 250 mg PO QDAY 08/07/25 08/07/25 tablet ferrous sulfate 325 mg (65 mg 325 mg PO QDAY 08/07/25 08/07/25 iron) tablet gabapentin 400 mg capsule 400 mg PO Q8HR PRN shakes 08/07/25 08/07/25 Previous Rx's ?Medication ?Instructions ?Recorded thiamine mononitrate (vit B1) 100 100 mg PO QDAY #30 tabs 04/02/25 mg tablet carvedilol 3.125 mg tablet 3.125 mg PO BIDWM #60 tabs 06/28/25 folic acid 1 mg tablet 1 mg PO QDAY #60 tabs 06/28/25 pantoprazole 40 mg tablet,delayed 40 mg PO QDAY #90 tabs 06/28/25 release Allergies Allergy/AdvReac Type Severity Reaction Status Date / Time No Known Allergies Allergy Verified 08/16/25 18:33 Review of Systems Review of Systems Narrative Review of Systems: GEN: No fever, no chills, no weight loss EYES: No discharge, no visual changes, no pain HEENT: No ear pain, no congestion, no sore throat PULM: No shortness of breath, no cough, no congestion CV: No chest pain, no dyspnea on exertion, no palpitations GI: No nausea, no vomiting, no diarrhea, no pain, no constipation : No frequency, no urgency, no dysuria MUSC/SKEL: No joint pain, no back pain SKIN: No rash PSYCH: No hallucinations, no depression HEME/LYMPH: No easy bleeding or bruising tendencies NEURO: No weakness, no headache Past Medical History Past Medical History NEUROLOGIC: Negative Neurological Disorders or Seizures CARDIAC: Positive Myocardial Infarction, Angina and Hypertension; Negative Cardiac Disorders, Cardiac Arrhythmia, Atrial Fibrillation, Heart Murmur, Coronary Artery Disease, Atherosclerotic Heart Disease, Peripheral Vascular Disease, Hypercholesterolemia, Aneurysm, Congestive Heart Failure, Congenital Heart Disease, Rheumatic Fever, Cardiomyopathy, Edema, Pericarditis, Cellulitis, Deep Vein Thrombosis, Hypotension or Varicose Veins RESPIRATORY: Negative Chronic Obstructive Pulmonary Disease (COPD) or Asthma GASTROINTESTINAL: Positive Hepatitis, Gastrointestinal Bleed, Esophageal Varices and Gastroesophageal Reflux Disease; Negative Gastrointestinal Disorders, Cirrhosis, Pancreatitis, Celiac Disease, Gall Bladder Disease, Bettencourt's Esophagus, Colitis, Ulcerative Colitis, Diverticulitis, Diverticulosis, Ulcer, Irritable Bowel, Crohn's Disease, Obstructive Bowel, Hiatal Hernia, Hemorrhoids or Obesity GENITOURINARY: Negative Genitourinary Disorders or Renal Disease MUSCULOSKELETAL: Negative Musculoskeletal Disorders ENT: Negative Cataracts, Glaucoma, Blind, Retinal Detachment, Macular Degeneration, Ear Infection, Deafness or Eye Prosthesis ENDOCRINE: Negative Endocrine Disorders, Diabetes Mellitus Type 1, Diabetes Mellitus Type 2, Hypoglycemia, Awais's Syndrome, [place]'s Disease, Hyperthyroidism, Hypothyroidism, Parathyroid Disease, Pituitary Disease, Systemic Lupus Erythematosus, Syndrome of Inappropriate Antidiuretic Hormone (SIADH), Adrenal Disease or Graves' Disease HEMATOLOGIC: Positive Anemia; Negative Blood Disorders or Sickle Cell Disease PSYCHO/SOCIAL: Positive Recreational Drug Use, Depression and Anxiety OTHER HISTORY: Positive Hospitalization, Falls, Blood Transfusions and Chicken Pox; Negative Autoimmune Disease, Down Syndrome, Developmental Delay, Blood Transfusion Reaction, Anesthesia Reactions, Organ Transplant, MRSA, VRSA, Clostridium Difficile or Cancer Family History FAMILY HISTORY: Negative Family Psychiatric Problems, Family Respiratory Disorders, Family Cardiac Disorders, Family Gastrointestinal Problems, Family Cancer, Family Surgery or Family Anesthesia Reaction Surgical History SURGICAL: Negative Cardiac Surgery, Pacemaker, Endocrine Surgery, Ear Surgery, Abdominal Surgery, Nephrectomy, Joint Replacement, Neurologic Surgery, Vasectomy or Organ Transplant Social History SMOKING STATUS: Never smoker SECOND HAND EXPOSURE: No SUBSTANCE USE: methamphetamine ED Exam Narrative Physical exam: [General: Appears not in any acute distress Head normocephalic HEENT: Eyes pupils are PERRLA EOMs are intact. Within acceptable limits Neck is supple nontender Chest equal chest rise nontender to palpation Respiratory: Clear to auscultation no wheezes crackles or rubs CV: Rate rhythm is regular no murmurs rubs or clicks Abdomen soft nontender no masses positive bowel sounds all 4 quadrants Back: No CVA tenderness no spinous process tenderness from cervical spine thoracic and lumbar spine Skin: Intact no petechiae rash induration ulceration or crepitus Extremities: Moving all extremities against resistance cap refill less than 2 seconds neurosensory intact Neuro: Awake alert oriented x3 Glascow coma 15 no focal deficits] Course Course Course Narrative: Will discharge the patient with alcohol intoxication the hypotension is been resolved with a liter of fluid. No other acute finding requires emergent or immediate intervention. Quality Measures none Orders Category Date Time Status EKG (ED ONLY) *Do not use* NOW Care 08/16/25 18:35 Completed EKG (ED Only) Stat Exams 08/16/25 18:35 Draft CBC Stat Lab 08/16/25 18:44 Completed CMP [Comprehensive Metabolic Panel] Stat Lab 08/16/25 18:44 Completed Troponin I Stat Lab 08/16/25 18:44 Completed Acetaminophen Tab [Tylenol Tab] Med 08/16/25 18:37 Discontinued 650 mg PO X1 ONE Vital Signs Vital signs: Vital Signs Temperature 98.1 F 08/16/25 18:36 Pulse Rate 99 08/16/25 18:36 Respiratory Rate 14 08/16/25 18:36 Blood Pressure 107/68 08/16/25 18:36 Pulse Oximetry (%) 17 L 08/16/25 18:36 Discharge Plan Plan Patient Disposition: HOME (Self Care) Patient condition on transfer: Stable Prescriptions/Referrals Prescriptions/Med Rec: No Action carvedilol 3.125 mg Tablet 3.125 mg PO BIDWM Qty: 60 1RF folic acid 1 mg Tablet 1 mg PO QDAY Qty: 60 0RF pantoprazole 40 mg tablet,delayed release (DR/EC) 40 mg PO QDAY Qty: 90 0RF thiamine mononitrate (vit B1) 100 mg Tablet 100 mg PO QDAY Qty: 30 0RF gabapentin 400 mg capsule 400 mg PO Q8HR PRN (Reason: shakes) Patient Comments: TOME 1 C PSULA POR V A ORAL CADA OCHO HORAS CUANDO SEA NECESARIO FOR SHAKES FROM ALCOHOL WITHDRAWAL ferrous sulfate 325 mg (65 mg iron) tablet 325 mg PO QDAY Patient Comments: TOME 1 TABLETA POR V A ORAL TODOS LOS D ascorbic acid (vitamin C) 250 mg tablet 250 mg PO QDAY Patient Comments: ALEJANDRA 1 TABLETA POR V A ORAL TODOS LOS D FOR 30 DAYS acamprosate 333 mg tablet,delayed release (DR/EC) 333 mg PO QDAY Patient Comments: ALEJANDRA DOS TABLETAS POR V A ORAL DOS VECES AL D A Referrals: No Primary/Family,Physician [Primary Care Provider] - In 1 week Problem List Clinical Impression: Alcohol abuse, Alcohol intoxication, Hypotension Patient/Caregiver Discharge Instructions Education Materials: Alcohol Addiction, Addiction: Your Treatment Options Print Language: Hebrew Stand Alone Forms: Kallie Award Info., Patient Portal Info Letter PA/WINDING INSPECTOR Supervising Physician PA/WINDING INSPECTOR Supervising Physician: Surendra Oliveira ENP MDM Clinical Information Provided by: patient and EMS Medical Records reviewed [facility] and EMS Meds/Rx considered, not ordered None Labs/Rad/Tests considered, not ordered None Chronic Illness/Social Conditions which may negatively complicate care or outcome(s)-explain: ETOH/drugs/substance abuse EKG Interpretation EKG #1: EKG Interpretation: EKG performed at 1841 shows a ventricular rate of 97 SC interval 175 QRS of 105 QTc of 425 the sinus rhythm Labs Labs: interpreted by mo Lab(s) Interpretation(s): CBC shows no leukocytosis and H&H of 7.9 and 23.0 with platelets of 54. CMP shows no significant electrolyte imbalances no renal impairment T. bili at 2.8 AST at 67 ALT 15 alk phos at 186 Troponin is unremarkable Imaging Imaging interpretation: none Medication Administration(s) none Medication Administration History Discontinued Medications Acetaminophen (Acetaminophen 325 Mg Tablet) 650 mg PO X1 ONE Stop: 08/16/25 18:38 Last Admin: 08/16/25 18:45 Dose: 650 mg Documented By: AMADOR Diagnosis Differential Diagnosis ED Complaint MDM: Alcohol intoxication electrolyte imbalances dehydration
--- NOTE | 2025-08-16 18:39 | PC.NURSE ---
BIBA FROM SIDE OF ROAD. PER EMS PT WAS PASSED OUT ON SIDE OF ROAD, INTOXICATED FROM DRINKING 3 HURRICANES. BP WAS 90/54 AND 02 WAS 80% ON RA. EMS GAVE 300ML BOLUS OF LR IN ROUTE, AND WE ARE FINISHING THE BOLUS HERE IN THE ED FOR A TOTAL OF 1000ML. BP NOW 107/68 WITH BOLUS STILL INFUSING. PT COMPLAINING OF 8% CHEST PAIN UNDER HIS LEFT NIPPLE . WILL CONT W/POC.
[2025-08-16] MEDS: ACETAMINOPHEN 325 MG TABLET 650 MG PO (18:45)
[2025-08-16 19:00] LABS: Basophils # (Auto) 0.1 Thou/mm3 (0.0-0.2); Basophils % (Auto) 1 % (0-2.5); Eosinophils # (Auto) 0.3 Thou/mm3 (0.0-0.5); Eosinophils % (Auto) 6 % (0-10); Hematocrit 23.0 % (41.0-53.0); Immature Granulocytes Auto 0.03 Thou/mm3 (0.00-0.00); Lymphocytes # (Auto) 0.9 Thou/mm3 (1.0-4.8); Lymphocytes % (Auto) 18 % (10-50); Mean Corpuscular HGB Conc 34.3 g/dl (31.0-37.0); Mean Corpuscular Hemoglobin 30.0 pg (25.0-35.0); Mean Corpuscular Volume 88 fL (80-100); Monocytes # (Auto) 0.7 Thou/mm3 (0.0-0.8); Monocytes % (Auto) 14 % (0-12); Neutrophils # (Auto) 3.1 Thou/mm3 (1.8-7.7); Neutrophils % (Auto) 60 % (37-80); Nucleated Red Blood Cell # 0.00 Thou/mm3 (0.00-0.00); Nucleated Red Blood Cell % 0 /100 WBC (0); RDW Standard Deviation 73.4 fL (35.1-43.9); Red Blood Count 2.63 Miln/mm3 (4.50-5.90); White Blood Count 5.2 Thou/mm3 (3.8-10.6)
[2025-08-16 19:12] LABS: Hemoglobin 7.9 g/dL (13.5-16.0); Platelet Count 54 Thou/mm3 (140-440)
[2025-08-16 19:19] LABS: Alanine Aminotransferase 15 U/L (10-49); Albumin, Serum 3.4 gm/dL (3.5-5.0); Albumin/Globulin Ratio 0.9 (1.2-2.2); Alkaline Phosphatase 186 U/L (46-116); Anion Gap 12 (7-16); Aspartate Amino Transferase 67 U/L (0-34); BUN/Creatinine Ratio 7 Ratio (12-20); Bilirubin,Total 2.8 mg/dL (0.3-1.2); Blood Urea Nitrogen < 5 mg/dL (9-23); Calcium 8.4 mg/dL (8.3-10.6); Calcium (Corrected) 8.9 mg/dL (8.5-10.1); Carbon Dioxide 24.1 mMol/L (20.0-31.0); Chloride 104 mMol/L (98-107); Creatinine (Component) 0.7 mg/dL (0.6-1.3); Estimated Creatinine Clearance 118.4 mL/min (>60); Globulin 3.6 gm/dL (2.3-3.5); Glucose 101 mg/dL (74-106); Osmolality,Calculated 276 (275-295); Potassium 3.6 mMol/L (3.4-5.1); Sodium 140 mMol/L (136-145); Total Protein 7.0 gm/dL (5.7-8.2); Troponin I < 0.020 ng/mL (0.0-0.045); eGFR > 60 See Note
[2025-08-16 20:02] VITALS: BP 96/59; PULSE 90; RESP 19; TEMP 36.6
[2025-08-16 20:05] LABS: Slide Review Platelets confirmed
== END 2025-08-17 05:43 | disposition home or self-care (01) ==
PROVIDERS: Registered Nurse General Practice; Emergency Provider Emergency Medicine
DX: F10.229 Alcohol dependence with intoxication, unspecified (principal); Y90.9 Presence of alcohol in blood, level not specified; I95.9 Hypotension, unspecified; Z95.0 Presence of cardiac pacemaker; Z96.60 Presence of unspecified orthopedic joint implant
CPT/HCPCS: 36415; 80053; 84484; 85025; 93005; 99283; A9270

== ENCOUNTER 2025-08-17 19:14 | Emergency (ER) | payer MEDICAID, SELFPAY ==
--- NOTE | 2025-08-17 19:30 | EDNOTE_ITS ---
ED Alcohol RME/HPI General Chief Complaint: Alcohol Stated Complaint: ETOH Time Seen by Provider: 08/17/25 19:33 Arrival date/time: 08/17/25 19:14 RME / HPI RME / HPI narrative: DR. 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 EMS called due to patient being unable to assume upright position after having sat down. No head strike or LOC reported. Evidence of urinary incontinence which he is unable to verbalize details. No definite fever, chills, vomiting, or diarrhea. C/o of vague chest pain, headache and abdominal pain. PMH: Myocardial Infarction, Angina, Hypertension, Hepatitis, Gastrointestinal Bleed, Esophageal Varices, Gastroesophageal Reflux Disease, Anemia, Former Recreational Drug Use, Depression, and Anxiety PSH: Negative Allergies: None reported Social: Alcohol Dependence, Prior Methamphetaime Use (8 years off), No tobacco use MD complaint: alcohol intoxication Last drink: Just Prior to Arrival Chronic alcohol use: Yes Previous visits for alcohol intoxication: Yes Related Data Home Medications ?Medication ?Instructions ?Recorded ?Confirmed acamprosate 333 mg tablet,delayed 333 mg PO QDAY 08/0708/07/25 release ascorbic acid (vitamin C) 250 mg 250 mg PO QDAY 08/07/25 tablet ferrous sulfate 325 mg (65 mg 325 mg PO QDAY 08/07/25 08/07/25 iron) tablet gabapentin 400 mg capsule 400 mg PO Q8HR PRN shakes 08/07/25 Previous Rx's ?Medication ?Instructions ?Recorded thiamine mononitrate (vit B1) 100 100 mg PO QDAY #30 t abs 04/02/25 mg tablet carvedilol 3.125 mg tablet 3.125 mg PO BIDWM #60 tabs 06/28/25 folic acid 1 mg tablet 1 mg PO QDAY #60 tabs pantoprazole 40 mg tablet,delayed 40 mg PO QDAY #90 ta bs 06/28/25 release Allergies Allergy/AdvReac Type Severity Reaction Status Date / Time No Known Allergies Allergy Verified 08/16/25 18:33 Review of Systems Review of Systems Systems Reviewed: All systems reviewed, normal except as documented Past Medical History Past Medical History CARDIAC: Positive Myocardial Infarction, Angina and Hypertension GASTROINTESTINAL: Positive Hepatitis, Gastrointestinal Bleed, Esophageal Varices and Gastroesophageal Reflux Disease HEMATOLOGIC: Positive Anemia PSYCHO/SOCIAL: Positive Recreational Drug Use, Depression and Anxiety OTHER HISTORY: Positive Hospitalization, Falls and Blood Transfusions Social History SUBSTANCE USE: methamphetamine SUBSTANCE LAST USED: unknown (8 years ago) ALCOHOL: Current ALCOHOL FREQUENCY: 3 or More Drinks per Day ALCOHOL LAST INTAKE: Just Prior to Arrival ED Exam Narrative Physical exam: GEN. APPEARANCE: The patient is alert awake, appears to moderate to severely inebriated with unkempt appearance, lying down comfortably, does not look ill/toxic. Patient has good eye contact. Patient is cooperative. VITALS: All vitals were reviewed and the pulse ox is 95%, which is normal according to my interpretation HEENT: Normocephalic, atraumatic and nontender. Positive nystagmus. Pupils are equal and reactive. Oral mucosa is moist. NECK: Supple, nontender, no meningismus, no JVD. There is no thyromegaly and no lymphadenopathy. CHEST: Nontender on palpation no deformity and no crepitus. CARDIOVASCULAR: Tachycardic, no murmur or gallop rub or extra beats. LUNGS: Clear to auscultation bilaterally with symmetrical chest rise. No laboring tachypnea or wheezing. No intercostal subcostal retraction. No rales and no rhonchi. ABDOMEN: Soft, slightly distended, mildly tender to palpation, no guarding or rebound tenderness. No peritoneal findings. There are no abnormal masses palpated. No pulsatile masses or bruits. Active and normal bowel sounds. EXTREMITIES:.Normal inspection and palpation. No edema. No cyanosis. Patient is able to move all 4 extremities well SKIN: Warm and dry, no rashes noted. MUSCULOSKELETAL: No lumbar or midline bony tenderness. There is no CVA tenderness. No paraspinal muscle spasm or tenderness. NEURO: Cranial nerves II through XII grossly intact. There are no focal neurologic deficits noted. Lateralizing deficits, with evidence of urinary incontinence. PSYCHIATRIC: Patient is in normal mood and affect, cooperative. LYMPHATICS: No major lymphadenopathy noted. Course Quality Measures none Orders Category Date Time Status Bedside Blood Glucose NOW Care 08/17/25 19:33 Active Interactive Media Specialist NOW Care 08/17/25 19:33 Active Continuous Pulse Oximetry NOW Care 08/17/25 19:33 Completed EKG (ED ONLY) *Do not use* NOW Care 08/17/25 19:33 Completed In and Out Catheter X1 Care 08/17/25 19:33 Active Insert IV NOW Care 08/17/25 19:33 Active NPO NOW Care 08/17/25 19:[address] cervical spine wo con Stat Exams 08/17/25 19:[address] head/brain wo con Stat Exams 08/17/25 19:34 Completed EKG (ED Only) Stat Exams 08/17/25 19:33 Draft XR cervical spine 2-3V Stat Exams 08/17/25 19:35 Completed Acetaminophen Stat Lab 08/17/25 20:01 Completed Alcohol, Blood Medical Stat Lab 08/17/25 20:01 Completed Ammonia Stat Lab 08/17/25 20:01 Completed Comprehensive Metabolic Panel AM DRAW Lab 08/18/25 05:00 Ordered Drug Screen,Urine Stat Lab 08/17/25 21:11 Completed Magnesium Stat Lab 08/17/25 20:01 Completed Partial Thromboplastin Time Stat Lab 08/17/25 20:01 Completed Prothrombin Time with INR Stat Lab 08/17/25 20:01 Completed Urinalysis, C/S if Indicated Stat Lab 08/17/25 21:11 Completed Folic Acid Inj Med 08/17/25 21:49 Discontinued 1 mg IVP X1 ONE Magnesium Sulfate 2 GM Ivpb [Magnesium Sulfate Ivpb] Med 08/17/25 21:49 Discontinued 2 gm in 50 ml IV X1 Sodium Chloride 0.9% 1000 ml [Ns] 1,000 ml Med 08/17/25 19:33 Discontinued IV 1,000 mls/hr Thiamine Inj [Vitamin B-1 Inj] Med 08/17/25 21:49 Discontinued 100 mg IVP X1 ONE Oxygen Delivery NOW RT 08/17/25 19:33 Active Vital Signs Vital signs: Vital Signs Temperature 97.8 F 08/17/25 19:46 Pulse Rate 105 H 08/17/25 19:46 Respiratory Rate 20 08/17/25 19:46 Blood Pressure 113/76 08/17/25 19:46 Pulse Oximetry (%) 95 08/17/25 19:46 Oxygen Delivery Method Room Air 08/17/25 19:46 Discharge Plan Prescriptions/Referrals Prescriptions/Med Rec: No Action carvedilol 3.125 mg Tablet 3.125 mg PO BIDWM Qty: 60 1RF folic acid 1 mg Tablet 1 mg PO QDAY Qty: 60 0RF pantoprazole 40 mg tablet,delayed release (DR/EC) 40 mg PO QDAY Qty: 90 0RF thiamine mononitrate (vit B1) 100 mg Tablet 100 mg PO QDAY Qty: 30 0RF gabapentin 400 mg capsule 400 mg PO Q8HR PRN (Reason: shakes) Patient Comments: TOME 1 C PSULA POR V A ORAL CADA OCHO HORAS CUANDO SEA NECESARIO FOR SHAKES FROM ALCOHOL WITHDRAWAL ferrous sulfate 325 mg (65 mg iron) tablet 325 mg PO QDAY Patient Comments: TOME 1 TABLETA POR V A ORAL TODOS LOS D ascorbic acid (vitamin C) 250 mg tablet 250 mg PO QDAY Patient Comments: TOME 1 TABLETA POR V A ORAL TODOS LOS D FOR 30 DAYS acamprosate 333 mg tablet,delayed release (DR/EC) 333 mg PO QDAY Patient Comments: TOME DOS TABLETAS POR V A ORAL DOS VECES AL D A Referrals: No Primary/Family,Physician [Primary Care Provider] - In 1 week Problem List Clinical Impression: Acute alcohol intoxication Patient/Caregiver Discharge Instructions Print Language: [place] Islander Alcohol MDM Narrative MDM Narrative: Scribe Attestation: Kelly Landers, jia scribing for and in the presence of Dr. Ferris. Provider Notation: Although this document has been carefully reviewed, there may still be some phonetic and other typographical errors. These errors are purely grammatical due to imperfections in the software program and should not be construed in any way to compromise the substance of the patient's medical care during this visit. 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 EMS called due to patient being unable to assume upright position after having sat down. Please see PE findings. Laboratory markers, including CBC, demonstrates chronically low WBC of 7.9, thrombocytopenia improved at 54, no left shift or associated bandemia. Coag profile demonstrated elevated INR of 1.4. Serum chemistries notable for elevated bilirubin, transaminase, and alkaline phosphatase. Coag profile demonstrates elevated INR at 1.4. Magnesium low at 1.4, serum ammonia mildly elevated at 34. Toxicology screen positive for Benzodiazepines and ethyl alcohol of 0.402. CT of the brain and cervical spine are unremarkable for acute process. Patient placed on mechanic and welder and treated with combination thiamine/folic acid and multivitamin to correct nutritional deficiencies. Patient was observed for extended period of time. No critical process identifiable and will likely require continued observation throught the AM. AM doctor to follow. Patient data External records reviewed:: [facility] previous records (Reviewed prior ED records from 08/16/25. Patient was seen for Alcohol abuse.) and EMS form Clinical information provided by:: patient and EMS Social determinants that could affect healthcare access:: alcohol use Patient has the following chronic illnesses:: Myocardial Infarction, Angina, Hypertension, Hepatitis, Gastrointestinal Bleed, Esophageal Varices, Gastroesophageal Reflux Disease, Anemia, Former Recreational Drug Use, Depression, and Anxiety How is presenting disease/condition affected by chronic disease/condition?: exacerbated by Evaluation data The following diagnostics were reviewed and interpreted by me:: lab results, radiology exam(s) and EKG tracing(s) Lab and/or radiology exams considered but not ordered:: None Interpretation Summary: RADIOLOGY Head/Brain CT: Findings: No significant ventricular enlargement. Intra-axial or extra-axial hemorrhage density is not seen. No mass effect or midline shift Basal cisterns are not remarkable. Fourth ventricle is midline. Cranial vault intact. Impression: Negative for acute hemorrhage, mass effect or midline shift C-Spine X-Ray: FINDINGS: Satisfactory alignment cervical vertebral bodies There is no diagnostic visualization C7 The odontoid is intact IMPRESSION: Limited study, no acute cervical fracture noted Recommend repeat swimmer's lateral view to diagnostically assess C7 C-Spine CT: Findings: Patient motion severely degrades scan image quality No gross fracture Satisfactory alignment cervical vertebral bodies IMPRESSION: Patient motion severely degrades scan image quality No gross fracture Medications / Prescriptions Medications or Prescriptions considered but not ordered:: None Medication administrations:: Medication Administration History Discontinued Medications Folic Acid (Folic Acid Inj 1 Mg/0.2 Ml) 1 mg IVP X1 ONE Stop: 08/17/25 21:50 Last Admin: 08/17/25 22:51 Dose: 1 mg Documented By: MIKEL Sodium Chloride (Ns) 1,000 mls @ 1,000 mls/hr IV .Q1H ONE Stop: 08/17/25 20:32 Last Infusion: 08/17/25 21:44 Dose: Infused Documented By: Admin: 08/17/25 20:05 Dose: 1,000 mls/hr Documented By: EMILY Magnesium Sulfate (Magnesium Sulfate Ivpb) 2 gm in 50 mls @ 25 mls/hr IV X1 ONE Stop: 08/17/25 23:48 Last Admin: 08/17/25 22:51 Dose: 25 mls/hr Documented By: MIKEL Thiamine HCl (Thiamine Inj 100 Mg/Ml Vial 2 Ml) 100 mg IVP X1 ONE Stop: 08/17/25 21:50 Last Admin: 08/17/25 22:49 Dose: 100 mg Documented By: MIKEL See above if any Consultations Consultation(s) initiated? (list below): No Diagnosis Differential diagnosis alcohol: alcohol withdrawal delirium, hypomagnesemia, alcohol intoxication, alcohol ketoacidosis and alcohol withdrawal syndrome Most likely diagnosis given after review of the tests above:: Acute ethanol intoxication Admission Indicated Admission indicated?: not indicated Explain why admission is indicated or not indicated:: MTF Admission Request Was there a request for admission?: No Disposition Plan Disposition Plan: other (specify) (Sign out to Dr. Caro at 6 AM)
--- NOTE | 2025-08-17 19:33 | XR_ITS ---
Examination: CT cervical spine without contrast 2-D sagittal reconstructions 2-D coronal reconstructions 3-D reconstructions. Exam date and time: August 17, 2025, 1944 hours INDICATIONS: Patient found down unconscious today with neck pain CTDI:vol (mGy) 16.1 DLP: (mGycm) 363 Technique: Multiple 2 mm axial sections of the cervical spine have been obtained. The coronal and sagittal reconstructions have been obtained. 3-D reconstructions have been obtained. Low dose protocols were performed. One or more of the following dose reduction techniques were used; automated exposure control, adjustment of the mA and/or KV according to patient size, use of iterative reconstruction technique. Findings: Patient motion severely degrades scan image quality No gross fracture Satisfactory alignment cervical vertebral bodies IMPRESSION: Patient motion severely degrades scan image quality No gross fracture
--- NOTE | 2025-08-17 19:33 | EKG_ITS ---
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
--- NOTE | 2025-08-17 19:34 | XR_ITS ---
Examination: CT brain head without contrast. 2-D sagittal coronal reconstructions Date and time of exam: August 17, 2025, 1944 hours, comparison August 06, 2025 INDICATIONS: Patient found down unconscious today CTDI: vol (mGy): 51.2 DLP: (mGycm): 1044 Technique: Multiple CT axial sections of the brain have been obtained, 5 mm slice thickness. Contrast has not been administered. 2-D sagittal, coronal reconstructions have been obtained Low dose protocols were performed. One or more of the following dose reduction techniques were used; automated exposure control, adjustment of the mA and/or KV according to patient size, use of iterative reconstruction technique. Findings: No significant ventricular enlargement. Intra-axial or extra-axial hemorrhage density is not seen. No mass effect or midline shift Basal cisterns are not remarkable. Fourth ventricle is midline. Cranial vault intact. Impression: Negative for acute hemorrhage, mass effect or midline shift
--- NOTE | 2025-08-17 19:35 | XR_ITS ---
EXAMINATION: Cervical spine 4 views TECHNIQUE: AP, lateral, swimmer's lateral, AP deltoid cervical spine 4 views Date and time: August 17, 2025, 2003 hours INDICATIONS: Injury to the neck today, neck pain. FINDINGS: Satisfactory alignment cervical vertebral bodies There is no diagnostic visualization C7 The odontoid is intact IMPRESSION: Limited study, no acute cervical fracture noted Recommend repeat swimmer's lateral view to diagnostically assess C7
[2025-08-17 19:46] VITALS: BP 113/76; PULSE 105; RESP 20; TEMP 36.6; O2SAT 95
[2025-08-17] MEDS: SODIUM CHLORIDE 0.9% 1000 ML 1,000 ML IV (20:05)
[2025-08-17 20:29] LABS: INR 1.4 (0.9-1.3); Partial Thromboplastin Time 33.8 Seconds (22.0-36.0); Prothrombin Time 14.6 Seconds (9.0-12.2)
[2025-08-17 20:31] LABS: Ammonia 34 uMol/L (11-32)
[2025-08-17 20:44] LABS: Acetaminophen < 2.0 mcg/mL (10.0-20.0); Magnesium 1.4 mg/dL (1.6-2.6)
[2025-08-17 20:51] LABS: Alcohol, Blood Medical 402.4 mg/dL (0-10.0)
[2025-08-17 21:23] LABS: Collection Type, Urine Clean Catch
[2025-08-17 21:31] VITALS: BMI 28.8
[2025-08-17 21:36] LABS: Amorphous Crystals,Urine Present (Absent); Bilirubin,Urine Negative (Negative); Blood,Urine Negative (Negative); Color,Urine Lt-Yellow (Lt Yel-Yel); Culture Indicated,Urine Not Indicated; Glucose, Urine Negative (Negative); Ketones,Urine Negative (Negative); Leukocyte Esterase,Urine Negative (Negative); Nitrite,Urine Negative (Negative); PH,Urine 6.5 (5.0-7.0); Protein,Urine Negative (Neg - Trace); RBC,Urine 2 /hpf (0-3); Specific Gravity,Urine 1.006 (1.001-1.035); Squamous Epithelial Cell,Urine < 1 /hpf (0-5); Urobilinogen,Urine Negative mg/dL (0.0-1.0); WBC,Urine < 1 /hpf (0-5)
[2025-08-17 21:38] LABS: Clarity,Urine Cloudy (Clear/Hazy)
[2025-08-17 21:39] VITALS: BP 108/70; PULSE 92; RESP 14; TEMP 36.3; O2SAT 96
[2025-08-17 21:42] VITALS: PULSE 92; RESP 14
[2025-08-17 21:44] LABS: Amphetamine/Methamp Scrn,U Negative (Negative); Barbiturate Screen,Urine Negative (Negative); Benzodiazepines Screen,Urine Positive (Negative); Benzoylecgonine Screen, Ur Negative (Negative); Fentanyl Screen,Urine Negative (Negative); Opiate Screen,Urine Negative (Negative); THC Screen,Urine Negative (Negative)
[2025-08-17] MEDS: THIAMINE INJ 100 MG/ML VIAL 2 ML IVP (22:49)
[2025-08-17] MEDS: FOLIC ACID INJ 1 MG/0.2 ML IVP (22:51)
[2025-08-17] MEDS: Magnesium Sulfate 2 GM Ivpb 2 GM/50 ML BAG IV (22:51)
[2025-08-18 01:12] VITALS: BP 118/64; PULSE 94; RESP 16
[2025-08-18 03:25] VITALS: BP 110/68; PULSE 102; RESP 14; O2SAT 96
[2025-08-18 05:43] VITALS: BP 112/68; PULSE 98; RESP 16; O2SAT 97
[2025-08-18 05:49] LABS: Alanine Aminotransferase 12 U/L (10-49); Albumin, Serum 3.1 gm/dL (3.5-5.0); Albumin/Globulin Ratio 0.9 (1.2-2.2); Alkaline Phosphatase 189 U/L (46-116); Anion Gap 12 (7-16); Aspartate Amino Transferase 67 U/L (0-34); BUN/Creatinine Ratio 10 Ratio (12-20); Bilirubin,Total 2.7 mg/dL (0.3-1.2); Blood Urea Nitrogen < 5 mg/dL (9-23); Calcium 7.6 mg/dL (8.3-10.6); Calcium (Corrected) 8.3 mg/dL (8.5-10.1); Carbon Dioxide 28.4 mMol/L (20.0-31.0); Chloride 108 mMol/L (98-107); Creatinine (Component) 0.5 mg/dL (0.6-1.3); Estimated Creatinine Clearance 184.0 mL/min (>60); Globulin 3.3 gm/dL (2.3-3.5); Glucose 91 mg/dL (74-106); Osmolality,Calculated 291 (275-295); Potassium 3.5 mMol/L (3.4-5.1); Sodium 148 mMol/L (136-145); Total Protein 6.4 gm/dL (5.7-8.2); eGFR > 60 See Note
[2025-08-18 09:20] VITALS: BP 138/98; PULSE 98; RESP 18; TEMP 36.8; O2SAT 97
--- NOTE | 2025-08-18 09:25 | PD.EDADDENDU ---
Emergency Room Addendum Addendum Narrative: 0600a: Care assumed from Dr. Bell, the previous shift emergency physician. Past medical, surgical, social and family history reviewed. Vitals and home medications reviewed. I will assume the care of the patient at this time, pending reassessment and final disposition. Please refer to the emergency department record for history and examination from initial visit.?The following addendum documentation note is intended to reflect any pending information, findings, or radiology results not included in the patient?s initial chart. 0845a: On reassessment, the patient is awake, alert, answering questions and able to ambulate without difficulty. Patient is vitally stable, will DC home.
== END 2025-08-18 09:20 | disposition home or self-care (01) ==
PROVIDERS: Emergency Provider Emergency Medicine
DX: F10.229 Alcohol dependence with intoxication, unspecified (principal); Y90.9 Presence of alcohol in blood, level not specified; I10 Essential (primary) hypertension; I25.2 Old myocardial infarction; R32 Unspecified urinary incontinence
CPT/HCPCS: 36415; 70450; 72040; 72125; 80053; 80307; 80320; 80329; 81001; 82140; 83735; 85610; 85730; 93005; 96361; 96374; 96375; 99284; J3411; J3475; J3490; J7030; G0480

== ENCOUNTER 2025-08-21 18:39 | Emergency (ER) | payer MEDICAID, SELFPAY ==
[2025-08-21 18:42] VITALS: BP 123/79; PULSE 89; RESP 18; TEMP 36.8; O2SAT 95
[2025-08-21 18:43] VITALS: PULSE 78; RESP 18; O2SAT 99
--- NOTE | 2025-08-21 18:45 | EKG_ITS ---
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
[2025-08-21 18:55] VITALS: BMI 27.4
--- NOTE | 2025-08-21 18:59 | PD.EDADULT ---
ED General RME/HPI General Chief complaint: Alcohol Stated complaint: ETOH Time Seen by Provider: 08/21/25 18:56 Arrival date/time: 08/21/25 18:39 CC: Alcohol intoxication and shortness of breath HPI patient presents to the ER via EMS with stable vital signs who is now change his story to having chest pain and headache. This patient is well-known to us for high number of visits for acute alcohol intoxication. Patient is awake alert oriented nontoxic-appearing not in any acute distress with slurred speech but able to answer all questions appropriately. Related Data Home Medications ?Medication ?Instructions ?Recorded ?Confirmed lactulose 10 gram/15 mL oral 10 g PO TID liver cirrhosis 08/24/25 08/24/25 solution Previous Rx's ?Medication ?Instructions ?Recorded thiamine mononitrate (vit B1) 100 100 mg PO QDAY #30 tabs 04/02/25 mg tablet pantoprazole 40 mg tablet,delayed 40 mg PO QDAY #90 tabs 06/28/25 release carvedilol 3.125 mg tablet (Coreg) 3.125 mg PO BID 1 month #60 tabs 08/28/25 folic acid 1 mg tablet 1 mg PO QDAY 1 month #30 tabs 08/28/25 Allergies Allergy/AdvReac Type Severity Reaction Status Date / Time No Known Allergies Allergy Verified 08/16/25 18:33 Review of Systems Review of Systems Narrative Review of Systems: GEN: No fever, no chills, no weight loss EYES: No discharge, no visual changes, no pain HEENT: No ear pain, no congestion, no sore throat PULM: No shortness of breath, no cough, no congestion CV: + chest pain, no dyspnea on exertion, no palpitations GI: No nausea, no vomiting, no diarrhea, no pain, no constipation : No frequency, no urgency, no dysuria MUSC/SKEL: No joint pain, no back pain SKIN: No rash PSYCH: No hallucinations, no depression HEME/LYMPH: No easy bleeding or bruising tendencies NEURO: No weakness, no headache Past Medical History Past Medical History NEUROLOGIC: Negative Neurological Disorders or Seizures CARDIAC: Positive Myocardial Infarction, Angina and Hypertension; Negative Cardiac Disorders, Cardiac Arrhythmia, Atrial Fibrillation, Heart Murmur, Coronary Artery Disease, Atherosclerotic Heart Disease, Peripheral Vascular Disease, Hypercholesterolemia, Aneurysm, Congestive Heart Failure, Congenital Heart Disease, Rheumatic Fever, Cardiomyopathy, Edema, Pericarditis, Cellulitis, Deep Vein Thrombosis, Hypotension or Varicose Veins RESPIRATORY: Negative Chronic Obstructive Pulmonary Disease (COPD) or Asthma GASTROINTESTINAL: Positive Hepatitis, Gastrointestinal Bleed, Esophageal Varices and Gastroesophageal Reflux Disease; Negative Gastrointestinal Disorders, Cirrhosis, Pancreatitis, Celiac Disease, Gall Bladder Disease, Bettencourt's Esophagus, Colitis, Ulcerative Colitis, Diverticulitis, Diverticulosis, Ulcer, Irritable Bowel, Crohn's Disease, Obstructive Bowel, Hiatal Hernia, Hemorrhoids or Obesity GENITOURINARY: Negative Genitourinary Disorders or Renal Disease MUSCULOSKELETAL: Negative Musculoskeletal Disorders ENT: Negative Cataracts, Glaucoma, Blind, Retinal Detachment, Macular Degeneration, Ear Infection, Deafness or Eye Prosthesis ENDOCRINE: Negative Endocrine Disorders, Diabetes Mellitus Type 1, Diabetes Mellitus Type 2, Hypoglycemia, Strafford's Syndrome, Tadeo's Disease, Hyperthyroidism, Hypothyroidism, Parathyroid Disease, Pituitary Disease, Systemic Lupus Erythematosus, Syndrome of Inappropriate Antidiuretic Hormone (SIADH), Adrenal Disease or Graves' Disease HEMATOLOGIC: Positive Anemia; Negative Blood Disorders or Sickle Cell Disease PSYCHO/SOCIAL: Positive Recreational Drug Use, Depression and Anxiety OTHER HISTORY: Positive Hospitalization, Falls, Blood Transfusions and Chicken Pox; Negative Autoimmune Disease, Down Syndrome, Developmental Delay, Blood Transfusion Reaction, Anesthesia Reactions, Organ Transplant, MRSA, VRSA, Clostridium Difficile or Cancer Family History FAMILY HISTORY: Negative Family Psychiatric Problems, Family Respiratory Disorders, Family Cardiac Disorders, Family Gastrointestinal Problems, Family Cancer, Family Surgery or Family Anesthesia Reaction Surgical History SURGICAL: Negative Cardiac Surgery, Pacemaker, Endocrine Surgery, Ear Surgery, Abdominal Surgery, Nephrectomy, Joint Replacement, Neurologic Surgery, Vasectomy or Organ Transplant Social History SMOKING STATUS: Never smoker SECOND HAND EXPOSURE: No SUBSTANCE USE: methamphetamine ED Exam Narrative Physical exam: [General: Not in any acute distress Head normocephalic HEENT: Within acceptable limits Neck is supple nontender Chest equal chest rise nontender to palpation Respiratory: Clear to auscultation no wheezes crackles or rubs CV: Rate rhythm is regular no murmurs rubs or clicks Abdomen is distended secondary to body habitus soft nontender no masses positive bowel sounds all 4 quadrants Back: No CVA tenderness no spinous process tenderness from cervical spine thoracic and lumbar spine Skin: Intact no petechiae rash induration ulceration or crepitus Extremities: Moving all extremity against resistance cap refill less than 2 seconds neurosensory intact Neuro: Awake alert oriented x3 Glascow coma 15 no focal deficits] Course Quality Measures none Orders Category Date Time Status EKG (ED ONLY) *Do not use* NOW Care 08/21/25 18:45 Completed Saline [Insert IV] NOW Care 08/21/25 18:57 Completed EKG (ED Only) Stat Exams 08/21/25 18:45 Draft Alcohol, Urine Stat Lab 08/21/25 19:08 Completed CBC Stat Lab 08/21/25 18:50 Completed CMP [Comprehensive Metabolic Panel] Stat Lab 08/21/25 18:50 Completed Drug Screen,Urine Stat Lab 08/21/25 19:08 Completed PT [Prothrombin Time with INR] Stat Lab 08/21/25 18:50 Completed PTT [Partial Thromboplastin Time] Stat Lab 08/21/25 18:50 Completed Troponin I Stat Lab 08/21/25 18:50 Completed Urinalysis Stat Lab 08/21/25 19:08 Completed Ringers Lactated 1000 ml [Lactated Ringers] 1,000 ml Med 08/21/25 23:02 Discontinued IV 1,000 mls/hr Sodium Chloride 0.9% 1000 ml [Ns] 1,000 ml Med 08/21/25 18:57 Discontinued IV 999 mls/hr Vital Signs Vital signs: Vital Signs Temperature 98.3 F 08/21/25 18:42 Pulse Rate 89 08/21/25 18:42 Respiratory Rate 18 08/21/25 18:42 Blood Pressure 123/79 08/21/25 18:42 Pulse Oximetry (%) 95 08/21/25 18:42 Oxygen Delivery Method Room Air 08/21/25 18:42 Discharge Plan Plan Patient Disposition: HOME (Self Care) Patient condition on transfer: Stable Prescriptions/Referrals Prescriptions/Med Rec: No Action pantoprazole 40 mg tablet,delayed release (DR/EC) 40 mg PO QDAY Qty: 90 0RF lactulose 10 gram/15 mL solution 10 g PO TID Patient Comments: TAKE 15 ML NEEDED ORALLY 3 TIMES A DAY folic acid 1 mg Tablet 1 mg PO QDAY 30 Days Qty: 30 0RF carvedilol [Coreg] 3.125 mg tablet 3.125 mg PO BID 30 Days Qty: 60 0RF Rx Instructions: must administer with a meal/food thiamine mononitrate (vit B1) 100 mg Tablet 100 mg PO QDAY Qty: 30 0RF Referrals: No Primary/Family,Physician [Primary Care Provider] - In 1 week Problem List Clinical Impression: Alcohol intoxication, Alcohol addiction Patient/Caregiver Discharge Instructions Education Materials: Alcoholism How to be Part of ..., Addiction: Your Treatment Options Print Language: Citizen Of [place] Stand Alone Forms: Kallie Award Info., Patient Portal Info Letter PA/JABIER Supervising Physician FIFI Supervising Physician: Surendra Oliveira ENP [facility] Clinical Information Provided by: patient and EMS Medical Records reviewed [facility] and EMS Meds/Rx considered, not ordered None Labs/Rad/Tests considered, not ordered None Chronic Illness/Social Conditions which may negatively complicate care or outcome(s)-explain: ETOH/drugs/substance abuse Explain: Alcohol dependency EKG Interpretation EKG #1: EKG Interpretation: EKG performed at 1852 shows a ventricular rate of 86 MD interval 174 QRS of 106 QTc of 422 this normal sinus rhythm. Labs Labs: interpreted by ks Lab(s) Interpretation(s): CBC shows no leukocytosis and H&H of 9.4 and 27.3 respectively platelets at 88. Note these are essentially unchanged from the last several visits. Coags show PT of 13.8 INR PTT within excepted limits CMP shows no significant electrolyte imbalances. T. bili at 4.7 AST 91 ALT 15 alk phos of 261. Troponin is negative. Medication Administration(s) Medication Administration History Discontinued Medications Sodium Chloride (Ns) 1,000 mls @ 999 mls/hr IV .Q1H1M ONE Stop: 08/21/25 19:57 Last Infusion: 08/21/25 20:49 Dose: Infused Documented By: Admin: 08/21/25 19:04 Dose: 999 mls/hr Documented By: TOMMY Lactated Ringer's (Lactated Ringers) 1,000 mls @ 1,000 mls/hr IV .Q1H ONE Stop: 08/22/25 00:01 Last Infusion: 08/22/25 00:30 Dose: Infused Documented By: Admin: 08/21/25 23:13 Dose: 1,000 mls/hr Documented By: TOMMY
[2025-08-21] MEDS: SODIUM CHLORIDE 0.9% 1000 ML 1,000 ML 999 ML IV (19:04)
[2025-08-21 19:23] LABS: Collection Type, Urine Clean Catch; Squamous Epithelial Cell,Urine 0 /hpf (0-5); WBC,Urine 0 /hpf (0-5)
[2025-08-21 19:29] LABS: Basophils # (Auto) 0.1 Thou/mm3 (0.0-0.2); Basophils % (Auto) 2 % (0-2.5); Eosinophils # (Auto) 0.5 Thou/mm3 (0.0-0.5); Eosinophils % (Auto) 6 % (0-10); Hematocrit 27.3 % (41.0-53.0); Hemoglobin 9.4 g/dL (13.5-16.0); Immature Granulocytes Auto 0.05 Thou/mm3 (0.00-0.00); Lymphocytes # (Auto) 1.5 Thou/mm3 (1.0-4.8); Lymphocytes % (Auto) 19 % (10-50); Mean Corpuscular HGB Conc 34.4 g/dl (31.0-37.0); Mean Corpuscular Hemoglobin 29.2 pg (25.0-35.0); Mean Corpuscular Volume 85 fL (80-100); Monocytes # (Auto) 0.4 Thou/mm3 (0.0-0.8); Monocytes % (Auto) 5 % (0-12); Neutrophils # (Auto) 5.3 Thou/mm3 (1.8-7.7); Neutrophils % (Auto) 67 % (37-80); Nucleated Red Blood Cell # 0.00 Thou/mm3 (0.00-0.00); Nucleated Red Blood Cell % 0 /100 WBC (0); Platelet Count 80 Thou/mm3 (140-440); RDW Standard Deviation 73.7 fL (35.1-43.9); Red Blood Count 3.22 Miln/mm3 (4.50-5.90); White Blood Count 7.9 Thou/mm3 (3.8-10.6)
[2025-08-21 19:43] LABS: INR 1.3 (0.9-1.3); Partial Thromboplastin Time 32.3 Seconds (22.0-36.0); Prothrombin Time 13.8 Seconds (9.0-12.2)
[2025-08-21 19:48] LABS: Alanine Aminotransferase 15 U/L (10-49); Albumin, Serum 3.8 gm/dL (3.5-5.0); Albumin/Globulin Ratio 0.9 (1.2-2.2); Alkaline Phosphatase 261 U/L (46-116); Anion Gap 14 (7-16); Aspartate Amino Transferase 91 U/L (0-34); BUN/Creatinine Ratio 7 Ratio (12-20); Bilirubin,Total 4.6 mg/dL (0.3-1.2); Blood Urea Nitrogen 5 mg/dL (9-23); Calcium 8.9 mg/dL (8.3-10.6); Calcium (Corrected) 9.1 mg/dL (8.5-10.1); Carbon Dioxide 24.6 mMol/L (20.0-31.0); Chloride 103 mMol/L (98-107); Creatinine (Component) 0.7 mg/dL (0.6-1.3); Estimated Creatinine Clearance 128.6 mL/min (>60); Globulin 4.3 gm/dL (2.3-3.5); Glucose 95 mg/dL (74-106); Osmolality,Calculated 280 (275-295); Potassium 3.6 mMol/L (3.4-5.1); Sodium 142 mMol/L (136-145); Total Protein 8.1 gm/dL (5.7-8.2); Troponin I 0.020 ng/mL (0.0-0.045); eGFR > 60 See Note
[2025-08-21 19:54] LABS: Amorphous Crystals,Urine Present (Absent); Bacteria,Urine 1+; Bilirubin,Urine Negative (Negative); Blood,Urine Negative (Negative); Clarity,Urine Turbid (Clear/Hazy); Color,Urine Lt-Yellow (Lt Yel-Yel); Glucose, Urine Negative (Negative); Ketones,Urine Negative (Negative); Leukocyte Esterase,Urine Negative (Negative); Nitrite,Urine Negative (Negative); PH,Urine 7.0 (5.0-7.0); Protein,Urine Negative (Neg - Trace); RBC,Urine 2 /hpf (0-3); Specific Gravity,Urine 1.007 (1.001-1.035); Urobilinogen,Urine Negative mg/dL (0.0-1.0)
[2025-08-21 21:00] VITALS: BP 95/70; PULSE 87; RESP 16; TEMP 36.7; O2SAT 92
[2025-08-21 21:07] LABS: Alcohol, Urine Positive (Negative); Amphetamine/Methamp Scrn,U Negative (Negative); Barbiturate Screen,Urine Negative (Negative); Benzodiazepines Screen,Urine Positive (Negative); Benzoylecgonine Screen, Ur Negative (Negative); Fentanyl Screen,Urine Negative (Negative); Opiate Screen,Urine Negative (Negative); THC Screen,Urine Negative (Negative)
[2025-08-21 23:00] VITALS: BP 107/73; PULSE 75; RESP 14; TEMP 36.6; O2SAT 94
[2025-08-21] MEDS: RINGERS LACTATED 1000 ML 1,000 ML IV (23:13)
[2025-08-22 00:56] VITALS: BP 114/74; PULSE 69; RESP 16; TEMP 36.6; O2SAT 94
--- NOTE | 2025-08-29 11:05 | EDNOTE_ITS ---
ED General RME/HPI General Chief complaint: Alcohol Stated complaint: ETOH Time Seen by Provider: 08/21/25 18:56 Arrival date/time: 08/21/25 18:39 Related Data Home Medications ?Medication ?Instructions ?Recorded ?Confirmed lactulose 10 gram/15 mL oral 10 g PO TID liver cirrhos is 08/24/25 08/24/25 solution Previous Rx's ?Medication ?Instructions ?Recorded thiamine mononitrate (vit B1) 100 100 mg PO QDAY #30 t abs 04/02/25 mg tablet pantoprazole 40 mg tablet,delayed 40 mg PO QDAY #90 ta bs 06/28/25 release carvedilol 3.125 mg tablet (Coreg) 3.125 mg PO BID 1 m onth #60 tabs 08/28/25 folic acid 1 mg tablet 1 mg PO QDAY 1 month #30 tab s 08/28/25 Allergies Allergy/AdvReac Type Severity Reaction Status Date / Time No Known Allergies Allergy Verified 08/16/25 18:33 Course Quality Measures none Orders Category Date Time Status EKG (ED ONLY) *Do not use* NOW Care 08/21/25 18:45 Completed Saline [Insert IV] NOW Care 08/21/25 18:57 Completed EKG (ED Only) Stat Exams 08/21/25 18:45 Draft Alcohol, Urine Stat Lab 08/21/25 19:08 Completed CBC Stat Lab 08/21/25 18:50 Completed CMP [Comprehensive Metabolic Panel] Stat Lab 08/21/25 18:50 Completed Drug Screen,Urine Stat Lab 08/21/25 19:08 Completed PT [Prothrombin Time with INR] Stat Lab 08/21/25 18:50 Completed PTT [Partial Thromboplastin Time] Stat Lab 08/21/25 18:50 Completed Troponin I Stat Lab 08/21/25 18:50 Completed Urinalysis Stat Lab 08/21/25 19:08 Completed Ringers Lactated 1000 ml [Lactated Ringers] 1,000 ml Med 08/21/25 23:02 Discontinued IV 1,000 mls/hr Sodium Chloride 0.9% 1000 ml [Ns] 1,000 ml Med 08/21/25 18:57 Discontinued IV 999 mls/hr Vital Signs Vital signs: Vital Signs Temperature 98.3 F 08/21/25 18:42 Pulse Rate 89 08/21/25 18:42 Respiratory Rate 18 08/21/25 18:42 Blood Pressure 123/79 08/21/25 18:42 Pulse Oximetry (%) 95 08/21/25 18:42 Oxygen Delivery Method Room Air 08/21/25 18:42 Discharge Plan Plan Patient Disposition: HOME (Self Care) Patient condition on transfer: Stable Prescriptions/Referrals Prescriptions/Med Rec: No Action pantoprazole 40 mg tablet,delayed release (DR/EC) 40 mg PO QDAY Qty: 90 0RF lactulose 10 gram/15 mL solution 10 g PO TID Patient Comments: TAKE 15 ML NEEDED ORALLY 3 TIMES A DAY folic acid 1 mg Tablet 1 mg PO QDAY 30 Days Qty: 30 0RF carvedilol [Coreg] 3.125 mg tablet 3.125 mg PO BID 30 Days Qty: 60 0RF Rx Instructions: must administer with a meal/food thiamine mononitrate (vit B1) 100 mg Tablet 100 mg PO QDAY Qty: 30 0RF Referrals: No Primary/Family,Physician [Primary Care Provider] - In 1 week Problem List Clinical Impression: Alcohol intoxication, Alcohol addiction Patient/Caregiver Discharge Instructions Education Materials: Alcoholism How to be Part of ..., Addiction: Your Treatment Options Print Language: Marshallese Stand Alone Forms: Kallie Award Info., Patient Portal Info Letter PA/RECYCLER FORKLIFT DRIVER TRUCK DRIVER Supervising Physician PA/RECYCLER FORKLIFT DRIVER TRUCK DRIVER Supervising Physician: Surendra Oliveira ENP MDM Medication Administration(s) Medication Administration History Discontinued Medications Sodium Chloride (Ns) 1,000 mls @ 999 mls/hr IV .Q1H1M ONE Stop: 08/21/25 19:57 Last Infusion: 08/21/25 20:49 Dose: Infused Documented By: Admin: 08/21/25 19:04 Dose: 999 mls/hr Documented By: TOMMY Lactated Ringer's (Lactated Ringers) 1,000 mls @ 1,000 mls/hr IV .Q1H ONE Stop: 08/22/25 00:01 Last Infusion: 08/22/25 00:30 Dose: Infused Documented By: Admin: 08/21/25 23:13 Dose: 1,000 mls/hr Documented By: TOMMY
== END 2025-08-22 01:00 | disposition home or self-care (01) ==
PROVIDERS: Registered Nurse General Practice; Emergency Provider Emergency Medicine
DX: F10.229 Alcohol dependence with intoxication, unspecified (principal); Y90.9 Presence of alcohol in blood, level not specified
CPT/HCPCS: 36415; 80053; 80307; 80320; 81001; 84484; 85025; 85610; 85730; 93005; 99283; J7030; J7120; G0480

== ENCOUNTER 2025-08-23 18:33 | Inpatient (IN) | payer MEDICAID, SELFPAY ==
[2025-08-23 18:34] VITALS: BP 116/69; PULSE 81; RESP 18; TEMP 36.6; O2SAT 94
[2025-08-23 18:37] VITALS: PULSE 78; RESP 20; O2SAT 97
--- NOTE | 2025-08-23 18:51 | PD.EDABDPN ---
ED Abdominal Pain RME/HPI General Chief Complaint: Weakness Stated complaint: HEADACHES Time seen by provider: 08/23/25 18:49 Arrival date/time: 08/23/25 18:33 Source: EMS Limitations: no limitations RME / HPI RME / HPI narrative: Dr. Verma?s Main ED Evaluation: Patient is a 44-year-old male with medical history notable for homelessness, alcohol use disorder, GI bleed, cirrhosis, that is in emergency department with concerns for vomiting blood for 1 day. Denies fevers chills cough runny nose abdominal pain dysuria hematuria melena bloody stools. Denies drugs and smoking. Patient states that he is compliant with his medications. Takes Protonix, propranolol, and lactulose. Related Data Home Medications ?Medication ?Instructions ?Recorded ?Confirmed acamprosate 333 mg tablet,delayed 333 mg PO QDAY 08/07/25 08/07/25 release ascorbic acid (vitamin C) 250 mg 250 mg PO QDAY 08/07/25 08/07/25 tablet ferrous sulfate 325 mg (65 mg 325 mg PO QDAY 08/07/25 08/07/25 iron) tablet gabapentin 400 mg capsule 400 mg PO Q8HR PRN shakes 08/07/25 08/07/25 Previous Rx's ?Medication ?Instructions ?Recorded thiamine mononitrate (vit B1) 100 100 mg PO QDAY #30 tabs 04/02/25 mg tablet carvedilol 3.125 mg tablet 3.125 mg PO BIDWM #60 tabs 06/28/25 folic acid 1 mg tablet 1 mg PO QDAY #60 tabs 06/28/25 pantoprazole 40 mg tablet,delayed 40 mg PO QDAY #90 tabs 06/28/25 release Allergies Allergy/AdvReac Type Severity Reaction Status Date / Time No Known Allergies Allergy Verified 08/16/25 18:33 Review of Systems Review of Systems Systems Reviewed: All systems reviewed, normal except as documented ED Exam General Limitations: Present no limitations General appearance: Present alert, in no apparent distress and other (Chronically ill-appearing, with acute decompensation) Head Head exam: Present atraumatic and normocephalic Eye Eye exam: Present normal appearance and PERRL ENT ENT exam: Present normal exam and normal oropharynx Neck Neck exam: Present normal inspection and full ROM Chest Chest inspection: Present symmetric chest wall rise Respiratory Respiratory exam: Absent respiratory distress Cardiovascular Cardiovascular exam: Present regular rate and normal rhythm Abdominal Exam Abdominal exam: Present soft; Absent distention or tenderness Neurological Exam Neurological exam: Present alert and other (Slow to respond, no focal neurodeficits) Course Quality Measures none Orders Category Date Time Status Endoscopy Consents .On arrival Care 08/23/25 20:58 Active NPO NOW Care 08/23/25 20:58 Active Consult to Gastroenterology Stat Cons 08/23/25 20:44 Ordered Diet NPO (NOW) Diet 08/23/25 20:58 Active Ammonia Stat Lab 08/23/25 09:15 Completed CBC Stat Lab 08/23/25 09:15 Completed CMP [Comprehensive Metabolic Panel] Stat Lab 08/23/25 09:15 Completed Drug Screen,Urine Stat Lab 08/23/25 19:17 Completed INR [Prothrombin Time with INR] Stat Lab 08/23/25 09:15 Completed Type and Screen Stat Lab 08/23/25 09:15 Completed Dextrose 50% Syr [D50w Syringe Abboject] Med 08/23/25 21:08 Discontinued 50 ml .ROUTE .STK-MED ONE Dextrose 50% Syr [D50w Syringe Abboject] Med 08/23/25 21:11 Discontinued 50 ml IVP X1 ONE Folic Acid Inj Med 08/23/25 18:51 Discontinued 1 mg IVP X1 ONE Octreotide Acet Inj [SandoSTATIN Inj] Med 08/23/25 18:49 Discontinued 50 mcg IV X1 ONE Ondansetron Inj [Zofran Inj] Med 08/23/25 18:50 Discontinued 4 mg IVP X1 ONE Pantoprazole/Ns 80Mg IV Premix [Protonix/NS 80mg IV Med 08/23/25 19:05 Active Premix] 80 mg in 100 ml IV Q10H Pantoprazole/Ns 80Mg IV Premix [Protonix/NS 80mg IV Med 08/23/25 18:50 Discontinued Premix] 80 mg in 100 ml IV X1 Sodium Chloride 0.9% [Ns] 100 ml Med 08/23/25 19:00 Active Octreotide Acet Inj [SandoSTATIN Inj] 1,000 mcg IV 50 mcg/hr Sodium Chloride 0.9% [Ns] 100 ml Med 08/24/25 15:00 Pending Octreotide Acet Inj [SandoSTATIN Inj] 1,000 mcg IV 50 mcg/hr Thiamine Inj [Vitamin B-1 Inj] Med 08/23/25 19:00 Discontinued 100 mg IV X1 ONE Thiamine Inj [Vitamin B-1 Inj] 100 mg Med 08/23/25 18:51 Discontinued Sodium Chloride 0.9% [Ns] 100 ml IV X1 Vital Signs Vital signs: Vital Signs Temperature 97.8 F 08/23/25 18:34 Pulse Rate 81 08/23/25 18:34 Respiratory Rate 18 08/23/25 18:34 Blood Pressure 116/69 08/23/25 18:34 Pulse Oximetry (%) 94 L 08/23/25 18:34 Oxygen Delivery Method Room Air 08/23/25 18:34 Abdominal Pain MDM MDM Narrative MDM Narrative:: Patient is a 44-year-old male with medical history notable for alcohol use disorder, homelessness, GI bleed is in the emergency department with concerns for hematemesis. Vital signs and exam as listed. Concern for variceal bleed, esophagitis, gastritis among others. Ordered labs, EKG, Protonix bolus and drip, octreotide bolus and drip as well as medications for nausea relief. Per chart review patient was admitted to the hospital in June, had an endoscopy then that showed banding of his prior esophageal varices and oozing from his gastric mucosa. Labs with evidence of hemoglobin 8.4. This is near patient's baseline. Patient without any significant acute electrolyte or acute metabolic disturbance. Patient does have chronic hyperbilirubinemia, T. bili is 4.5 at patient's baseline. Patient ammonia not significantly elevated. Drug screens positive for benzodiazepines. Patient blood type is a positive. Will discuss admission with hospitalist service. Will also consult material handler loader. 8:46p discussed case with on-call material handler loader Dr. Perla. Request patient be n.p.o., will perform endoscopy tomorrow. Will discuss admission with the hospitalist service.... Currently excepted patient for admission. 9:15p was notified by nursing staff that patient had a blood glucose in the 50s. Ordered an amp of D50. 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, anemia, upper GI bleed, and homelessness How is presenting disease/condition affected by chronic disease/condition?: caused by Evaluation data The following diagnostics were reviewed and interpreted by me:: lab results Lab and/or radiology exams considered but not ordered:: none Interpretation Summary: See MDM Medications / Prescriptions Medications or Prescriptions considered but not ordered:: none Medication administrations:: Medication Administration History Pantoprazole Sodium (Protonix/Ns 80mg Iv Premix) 80 mg in 100 mls @ 10 mls/hr IV Q10H BRANDI Stop: 08/26/25 17:04 Last Admin: 08/23/25 20:06 Dose: 10 mls/hr Documented By: CCT Octreotide Acetate 1,000 mcg/ (Sodium Chloride) 102 mls @ 5.1 mls/hr IV .Q20H BRANDI; Protocol Stop: 08/28/25 18:59 Octreotide Acetate 1,000 mcg/ (Sodium Chloride) 102 mls @ 5.1 mls/hr IV .Q20H BRANDI; Protocol Stop: 08/24/25 14:59 Last Admin: 08/23/25 20:02 Dose: 50 mcg/hr, 5.1 mls/hr Documented By: CCT Discontinued Medications Dextrose (Dextrose 50%-Water Inj 50 Ml Syringe) 50 ml IVP X1 ONE Stop: 08/23/25 21:12 Dextrose (Dextrose 50%-Water Inj 50 Ml Syringe) Confirm Administered Dose 50 ml .ROUTE .STK-MED ONE Stop: 08/23/25 21:09 Folic Acid (Folic Acid Inj 1 Mg/0.2 Ml) 1 mg IVP X1 ONE Stop: 08/23/25 18:52 Last Admin: 08/23/25 19:53 Dose: 1 mg Documented By: CCT Pantoprazole Sodium (Protonix/Ns 80mg Iv Premix) 80 mg in 100 mls @ 400 mls/hr IV X1 ONE Stop: 08/23/25 19:04 Last Infusion: 08/23/25 20:05 Dose: Infused Documented By: Admin: 08/23/25 19:48 Dose: 400 mls/hr Documented By: CCT Thiamine HCl 100 mg/ Sodium (Chloride) 101 mls @ 202 mls/hr IV X1 ONE Stop: 08/23/25 19:20 Octreotide Acetate (Octreotide Acet Inj 50 Mcg/Ml Vial) 50 mcg IV X1 ONE Stop: 08/23/25 18:50 Last Admin: 08/23/25 19:53 Dose: 50 mcg Documented By: CCT Ondansetron HCl (Ondansetron Inj 2 Mg/Ml Inj 2 Ml) 4 mg IVP X1 ONE; Protocol Stop: 08/23/25 18:51 Last Admin: 08/23/25 19:52 Dose: 4 mg Documented By: CCT Thiamine HCl (Thiamine Inj 100 Mg/Ml Vial 2 Ml) 100 mg IV X1 ONE Stop: 08/23/25 19:01 Last Admin: 08/23/25 19:53 Dose: 100 mg Documented By: CCT see above Consultations Consultation(s) initiated? (list below): Yes Consultation #1 (Physician, Specialty, Details): Discussed case with Dr. Perla from GI regarding consultation. Discussed patients ED course, exam findings, labs, and radiology results. Agrees to consult and will scope the patient tomorrow. Time: 20:45 Consultation #2 (Physician, Specialty, Details): Discussed case with the resident physician, attending Dr. Thakkar from Hospitalist service regarding admission. Discussed patients ED course, exam findings, labs, and radiology results. The Hospitalist agrees to accept the patient for admission. Time: 20:47 Diagnosis Differential diagnosis abdominal pain: pancreatitis and other (GI bleed, worsening esophageal varices, alcohol abuse) Most likely diagnosis given after review of the tests above:: GI bleed, alcohol use disorder Admission Indicated Admission indicated?: indicated Admission Request Was there a request for admission?: Yes Admission Attestation Admission request attestation: Discussed case with Hospitalist service regarding admission. Discussed patients ED course, exam findings, labs, and radiology results. The Hospitalist [agrees] to accept the patient for admission. Disposition Plan Disposition Plan: Admit Critical Care Time Critical Care Time Critical Care Time: Yes Total Critical Care Time (min.): 60 Attestation: Due to a high probability of clinically significant, life threatening deterioration, the patient required my highest level of preparedness to intervene emergently and I personally spent this critical care time directly and personally managing the patient. This critical care time included obtaining a history; examining the patient; pulse oximetry; ordering and review of studies; arranging urgent treatment with development of a management plan; evaluation of patient's response to treatment; frequent reassessment; and, discussions with other providers. This critical care time was performed to assess and manage the high probability of imminent, life-threatening deterioration that could result in multi-organ failure. It was exclusive of separately billable procedures and treating other patients and teaching time. Please see MDM section and the rest of the note for further information on patient assessment and treatment. Discharge Plan Plan Patient Disposition: Admit Acute Care w/in Hospital Prescriptions/Referrals Prescriptions/Med Rec: No Action carvedilol 3.125 mg Tablet 3.125 mg PO BIDWM Qty: 60 1RF folic acid 1 mg Tablet 1 mg PO QDAY Qty: 60 0RF pantoprazole 40 mg tablet,delayed release (DR/EC) 40 mg PO QDAY Qty: 90 0RF thiamine mononitrate (vit B1) 100 mg Tablet 100 mg PO QDAY Qty: 30 0RF gabapentin 400 mg capsule 400 mg PO Q8HR PRN (Reason: shakes) Patient Comments: TOME 1 C PSULA POR V A ORAL CADA OCHO H[place]AS CUANDO SEA NECESARIO FOR SHAKES FROM ALCOHOL WITHDRAWAL ferrous sulfate 325 mg (65 mg iron) tablet 325 mg PO QDAY Patient Comments: TOME 1 TABLETA POR V A ORAL TODOS LOS D ascorbic acid (vitamin C) 250 mg tablet 250 mg PO QDAY Patient Comments: TOME 1 TABLETA POR V A ORAL TODOS LOS D FOR 30 DAYS acamprosate 333 mg tablet,delayed release (DR/EC) 333 mg PO QDAY Patient Comments: TOME DOS TABLETAS POR V A ORAL DOS VECES AL D A Referrals: No Primary/Family,Physician [Primary Care Provider] - In 1 week Problem List Clinical Impression: GI bleed, Alcohol use disorder Patient/Caregiver Discharge Instructions Print Language: Vietnamese Stand Alone Forms: [facility] Award Info., Patient Portal Info Letter
[2025-08-23 19:38] LABS: Basophils # (Auto) 0.1 Thou/mm3 (0.0-0.2); Basophils % (Auto) 1 % (0-2.5); Eosinophils # (Auto) 0.5 Thou/mm3 (0.0-0.5); Eosinophils % (Auto) 6 % (0-10); Hematocrit 23.8 % (41.0-53.0); Hemoglobin 8.4 g/dL (13.5-16.0); Immature Granulocytes Auto 0.04 Thou/mm3 (0.00-0.00); Lymphocytes # (Auto) 1.6 Thou/mm3 (1.0-4.8); Lymphocytes % (Auto) 20 % (10-50); Mean Corpuscular HGB Conc 35.3 g/dl (31.0-37.0); Mean Corpuscular Hemoglobin 29.4 pg (25.0-35.0); Mean Corpuscular Volume 83 fL (80-100); Monocytes # (Auto) 0.4 Thou/mm3 (0.0-0.8); Monocytes % (Auto) 6 % (0-12); Neutrophils # (Auto) 5.3 Thou/mm3 (1.8-7.7); Neutrophils % (Auto) 66 % (37-80); Nucleated Red Blood Cell # 0.00 Thou/mm3 (0.00-0.00); Nucleated Red Blood Cell % 0 /100 WBC (0); Platelet Count 57 Thou/mm3 (140-440); RDW Standard Deviation 74.0 fL (35.1-43.9); Red Blood Count 2.86 Miln/mm3 (4.50-5.90); White Blood Count 7.9 Thou/mm3 (3.8-10.6)
[2025-08-23 19:39] LABS: Slide Review Platelets confirmed
[2025-08-23] MEDS: PANTOPRAZOLE/NS 80MG IV PREMIX 80 MG/100 ML BAG 400 MG IV (19:48)
[2025-08-23 19:50] LABS: INR 1.3 (0.9-1.3); Prothrombin Time 14.0 Seconds (9.0-12.2)
[2025-08-23 19:52] LABS: Amphetamine/Methamp Scrn,U Negative (Negative); Barbiturate Screen,Urine Negative (Negative); Benzodiazepines Screen,Urine Positive (Negative); Benzoylecgonine Screen, Ur Negative (Negative); Fentanyl Screen,Urine Negative (Negative); Opiate Screen,Urine Negative (Negative); THC Screen,Urine Negative (Negative)
[2025-08-23] MEDS: ONDANSETRON INJ 2 MG/ML INJ 2 ML 4 MG IVP (19:52)
[2025-08-23 19:53] LABS: Alanine Aminotransferase 15 U/L (10-49); Albumin, Serum 3.4 gm/dL (3.5-5.0); Albumin/Globulin Ratio 0.8 (1.2-2.2); Alkaline Phosphatase 213 U/L (46-116); Ammonia 35 uMol/L (11-32); Anion Gap 13 (7-16); Aspartate Amino Transferase 92 U/L (0-34); BUN/Creatinine Ratio 7 Ratio (12-20); Bilirubin,Total 4.5 mg/dL (0.3-1.2); Blood Urea Nitrogen < 5 mg/dL (9-23); Calcium 8.2 mg/dL (8.3-10.6); Calcium (Corrected) 8.7 mg/dL (8.5-10.1); Carbon Dioxide 21.9 mMol/L (20.0-31.0); Chloride 102 mMol/L (98-107); Creatinine (Component) 0.7 mg/dL (0.6-1.3); Globulin 4.2 gm/dL (2.3-3.5); Glucose 94 mg/dL (74-106); Osmolality,Calculated 271 (275-295); Potassium 3.7 mMol/L (3.4-5.1); Sodium 137 mMol/L (136-145); Total Protein 7.6 gm/dL (5.7-8.2); eGFR > 60 See Note
[2025-08-23] MEDS: THIAMINE INJ 100 MG/ML VIAL 2 ML IV (19:53)
[2025-08-23] MEDS: FOLIC ACID INJ 1 MG/0.2 ML IVP (19:53)
[2025-08-23] MEDS: OCTREOTIDE ACET INJ 50 mCg/ML VIAL IV (19:53)
[2025-08-23] MEDS: OCTREOTIDE ACET INJ 1,000 MCG in SODIUM CHLORIDE 0.9% 100 ML 5.1 MCG IV (20:02)
[2025-08-23] MEDS: PANTOPRAZOLE/NS 80MG IV PREMIX 80 MG/100 ML BAG 10 MG IV (20:06)
--- NOTE | 2025-08-23 20:57 | PD.IMCONS ---
HPI Data of Consult Primary Care Provider: Physician No Primary/Family Consult Narrative Reason for consult: Hematemesis History of present illness: 44 years old male presented the emergency room with history of hematemesis subsequently admitted This patient is well-known to me has a history of alcoholic liver disease continues to drink is homeless and has no follow-up as an outpatient cc:: cc: Review of Systems Review of Systems Systems Reviewed: All systems reviewed, normal except as documented Meds Home Medications and Allergies Home Medications ?Medication ?Instructions ?Recorded ?Confirmed ?Type lactulose 10 gram/15 mL oral 10 g PO TID liver cirrhosis 08/24/25 08/24/25 History solution propranolol 10 mg tablet 20 mg PO Q12H 08/24/25 08/24/25 History Allergies Allergy/AdvReac Type Severity Reaction Status Date / Time No Known Allergies Allergy Verified 08/16/25 18:33 Exam Vital Signs Temp Pulse Resp BP Pulse Ox O2 Del Method 97.8 F 81 18 116/69 94 L Room Air 08/23/25 18:34 08/23/25 18:34 08/23/25 18:34 08/23/25 18:34 08/23/25 18:34 08/23/25 18:34 Constitutional Comments: Alert oriented Routine Respiratory Exam Comments: Normal to auscultation Routine Abdominal Exam Comments: Soft nontender Results Labs 08/24/25 06:32 08/24/25 06:32 Labs: Short CBC 08/23/25 Range/Units 09:15 WBC 7.9 (3.8-10.6) Thou/mm3 Hgb 8.4 L (13.5-16.0) g/dL Hct 23.8 L (41.0-53.0) % Plt Count 57 L D (140-440) Thou/mm3 BMP 08/23/25 09:15 Sodium 137 Potassium 3.7 Chloride 102 Carbon Dioxide 21.9 BUN < 5 L Creatinine 0.7 Glucose 94 Calcium 8.2 L Liver Function 08/23/25 Range/Units 09:15 Total Bilirubin 4.5 H (0.3-1.2) mg/dL AST 92 H (0-34) U/L ALT 15 (10-49) U/L Alkaline Phosphatase 213 H D (46-116) U/L Albumin 3.4 L (3.5-5.0) gm/dL Assessment and Plan Additional Assessment & Plan Additional Plan: # Hematemesis in setting of cirrhotic liver disease due to alcohol Plan Serial CBC IV Protonix IV octreotide at 50 mcg/h Consent obtained for fiberoptic esophagogastroduodenoscopy with possible therapeutic intervention under intravenous moderate sedation Will follow the patient Thank you for the opportunity to participate in the care of this patient
[2025-08-23] MEDS: DEXTROSE 50%-WATER INJ 50 ML SYRINGE IVP ×2 (21:11→23:39)
--- NOTE | 2025-08-23 21:25 | PD.RESHP ---
Documentation for date of: 08/23/25 HPI History of Present Illness Chief complaint: Hematemesis History of present illness: At the time of my evaluation he is not alert and may be intoxicated with alcohol .This is a 44-year-old male with past medical history of chronic alcohol use, cirrhosis complicated by esophageal varices, homelessness presented to the ED with complaints of bloody vomitings. He has been having multiple episodes of bloody vomitings since 1 day but denies any abdominal pain, melena, fever, urinary frequency, urinary urgency, burning micturition, shortness of breath, chest pain, chest tightness. According to the chart he says he has been compliant with his home medication lactulose, propranolol, Protonix. Today ED visit vitals: BP 116/69, pulse rate 78, respiratory 18, temperature 97.8 ?F, saturating 97% AT ROOM AIR. Pertinent labs are hemoglobin 8.4, hematocrit 23.8, WBC - 7.9, platelet 57, PT 14, total bilirubin 4.5, AST 92, ALT 15, ALP 213, urine tox screen positive for benzo. ED course given loading dose of Protonix, started on octreotide drip, consulted gastroenterology. During the course in ED had blood glucose of 56 which they gave dextrose. Past medical history: Alcoholic cirrhosis, splenomegaly, esophageal varices Past surgical history: None Social history: Homeless drinks 2-3 tall beers every day, reports quitting smoking 10 years ago history of crystal meth use 8 years ago Allergic history: NKDA Review of Systems Constitutional Constitutional: Reports system reviewed and no additional complaints, except as documented Exam Vital Signs Temp Pulse Resp BP Pulse Ox O2 Del Method 97.8 F 81 18 116/69 94 L Room Air 08/23/25 18:34 08/23/25 18:34 08/23/25 18:34 08/23/25 18:34 08/23/25 18:34 08/23/25 18:34 Narrative Exam GENERAL: NAD, AAOx2, confused ,diaphoretic HEENT: Moist mucosa. Eyes open, symmetrical, & clear CARDIO: Regular rhythm Noted. No Murmurs. PULM: No noted coughing/dyspnea CTA B/L, no R/W/R GI: Abdomen soft, nondistended, Tenderness on palpation of LUQ. SKIN/MSK/EXT: No wounds/rashes/amputations, no pain on palpation. Pedal pulses present B/L NEURO: AAOx3, no focal neuro deficits, able to move all 4 extremities Results: Labs 08/24/25 06:32 08/24/25 06:32 Labs: Short CBC 08/23/25 Range/Units 09:15 WBC 7.9 (3.8-10.6) Thou/mm3 Hgb 8.4 L (13.5-16.0) g/dL Hct 23.8 L (41.0-53.0) % Plt Count 57 L D (140-440) Thou/mm3 BMP 08/23/25 09:15 Sodium 137 Potassium 3.7 Chloride 102 Carbon Dioxide 21.9 BUN < 5 L Creatinine 0.7 Glucose 94 Calcium 8.2 L Liver Function 08/23/25 Range/Units 09:15 Total Bilirubin 4.5 H (0.3-1.2) mg/dL AST 92 H (0-34) U/L ALT 15 (10-49) U/L Alkaline Phosphatase 213 H D (46-116) U/L Albumin 3.4 L (3.5-5.0) gm/dL Quality Measures Quality Measures none Medications Home Medications and Allergies Home Medications ?Medication ?Instructions ?Recorded ?Confirmed ?Type lactulose 10 gram/15 mL oral 10 g PO TID liver cirrhosis 08/24/25 08/24/25 History solution propranolol 10 mg tablet 20 mg PO Q12H 08/24/25 08/24/25 History Allergies Allergy/AdvReac Type Severity Reaction Status Date / Time No Known Allergies Allergy Verified 08/16/25 18:33 Visit Medications Acetaminophen (Acetaminophen 325 Mg Tablet) 650 mg PO Q6H PRN PRN Reason: Fever >100.4 Stop: 09/22/25 21:14 Acetaminophen (Acetaminophen 325 Mg Tablet) 650 mg PO Q6H PRN PRN Reason: PAIN SCALE 1-3 (mild Stop: 09/22/25 21:14 Pantoprazole Sodium (Protonix/Ns 80mg Iv Premix) 80 mg in 100 mls @ 10 mls/hr IV Q10H BRANDI Stop: 08/26/25 17:04 Last Admin: 08/23/25 20:06 Dose: 10 mls/hr Octreotide Acetate 1,000 mcg/ (Sodium Chloride) 102 mls @ 5.1 mls/hr IV .Q20H BRANDI; Protocol Stop: 08/28/25 18:59 Octreotide Acetate 1,000 mcg/ (Sodium Chloride) 102 mls @ 5.1 mls/hr IV .Q20H BRANDI; Protocol Stop: 08/24/25 14:59 Last Infusion: 08/23/25 21:21 Dose: 0 mcg/hr, 0 mls/hr Ondansetron HCl (Ondansetron Inj 2 Mg/Ml Inj 2 Ml) 4 mg IVP Q6H PRN; Protocol PRN Reason: NAUSEA OR VOMITING Stop: 09/22/25 21:14 Pantoprazole Sodium (Pantoprazole Inj 40 Mg Vial) 40 mg IVP BID BRANDI Stop: 09/23/25 08:59 Sennosides (Senna Tablet) 1 tab PO QDAY PRN; Protocol PRN Reason: constipation Stop: 09/22/25 21:14 Discontinued Medications Dextrose (Dextrose 50%-Water Inj 50 Ml Syringe) 50 ml IVP X1 ONE Stop: 08/23/25 21:12 Last Admin: 08/23/25 21:11 Dose: 50 ml Folic Acid (Folic Acid Inj 1 Mg/0.2 Ml) 1 mg IVP X1 ONE Stop: 08/23/25 18:52 Last Admin: 08/23/25 19:53 Dose: 1 mg Pantoprazole Sodium (Protonix/Ns 80mg Iv Premix) 80 mg in 100 mls @ 400 mls/hr IV X1 ONE Stop: 08/23/25 19:04 Last Infusion: 08/23/25 20:05 Dose: Infused Thiamine HCl 100 mg/ Sodium (Chloride) 101 mls @ 202 mls/hr IV X1 ONE Stop: 08/23/25 19:20 Octreotide Acetate (Octreotide Acet Inj 50 Mcg/Ml Vial) 50 mcg IV X1 ONE Stop: 08/23/25 18:50 Last Admin: 08/23/25 19:53 Dose: 50 mcg Ondansetron HCl (Ondansetron Inj 2 Mg/Ml Inj 2 Ml) 4 mg IVP X1 ONE; Protocol Stop: 08/23/25 18:51 Last Admin: 08/23/25 19:52 Dose: 4 mg Thiamine HCl (Thiamine Inj 100 Mg/Ml Vial 2 Ml) 100 mg IV X1 ONE Stop: 08/23/25 19:01 Last Admin: 08/23/25 19:53 Dose: 100 mg Assessment & Plan Plan This is a 44-year-old male with past medical history of chronic alcohol use, cirrhosis complicated by esophageal varices, homelessness presented to the ED with complaints of bloody vomitings since 1 day. He was admitted for upper GI Bleed. # Upper GI bleed # Normocytic Anemia # Thrombocytopenia. History of hematemesis, alcohol use, alcoholic cirrhosis. Hemoglobin 8.4, hematocrit 23.8, platelets 57. In ED loading dose of Protonix 80 mg, octreotide infusion started. ED consulted gastroenterology ?Putting on n.p.o. and an endoscopy tomorrow. ?Protonix 40 mg twice daily ordered upper GI bleed. ?PRBC ordered and track H&H every 4 hours. - Transfuse Platlets if <20047- to reduce spontaneous hemorrhage. -His Blood pressure is running low in 90/60s- ordered 1 L of NS Bolus -His Blood Glucose keep on dropping - ordered D5W # Alcohol use disorder # Alcohol Induced Cirrhosis # H/o Hepatic Encepholopathy -Starting on CIWA protocol # Transaminitis AST 92, ALT 15, ALP 213, total bilirubin 4.5 His baseline total bilirubin 4.5. Most probably due to alcohol induced cirrhosis ?Trend his liver functions. Code status: Full DVT prophylaxis: SCD Diet: NPO Guerra: None Lines: PIV Supplemental O2: none Disposition: Tele I discussed this case with my senior Dr. Rivera and my attending Dr. Gould. Joshua Paul MD,[id number] Attending Provider Attestation/Addendum 43-year-old male patient with alcohol use disorder, history of esophageal varices, cirrhosis admitted for GI bleed with hematemesis. The patient has a hemoglobin of 8.4. During my evaluation in the ER he is arousable but appears confused. He denies chest pain. Blood pressure is stable. He is not tachycardic. RN said she had to stop octreotide drip. His blood sugar was low. The patient received D50 infusion. Continue monitoring. GI evaluation by Dr. Perla. I discussed with and supervised the resident physician who took care of this patient. I agree with the assessment and plan as above.
[2025-08-23 21:29] VITALS: BP 94/61; PULSE 78; RESP 18; TEMP 36.4; O2SAT 97
[2025-08-23] MEDS: SODIUM CHLORIDE 0.9% 1000 ML 1,000 ML 999 ML IV (22:17)
--- NOTE | 2025-08-23 22:20 | PC.NURSE ---
Called hospitalist spoke to resident Dr. Paul regarding blood glucose of 97 and 30 minutes prior blood glucose was 152 after D50. Made aware Octreotide infusion paused as ordered by Dr. Verma due to low blood glucose. MD also already aware BP in the 90s. Per MD infuse ordered IV bolus, then recheck BS after bolus is complete, and agreed to keep Octreotide paused for now.
--- NOTE | 2025-08-23 22:20 | PC.NURSE ---
Called hospitalist spoke to resident Dr. Paul regarding blood glucose, currently 97 and 30 minutes prior blood glucose was 152 after D50. MD also already aware BP in the 90s. Per MD infuse ordered IV bolus and then recheck BS after bolus is complete.
[2025-08-23 22:47] VITALS: BP 94/54; PULSE 71; RESP 16; TEMP 36.4; O2SAT 98
--- NOTE | 2025-08-23 22:47 | PC.NURSE ---
Spoke to resident Dr. Paul, made aware bedside glucose is now 70 after IV fluid bolus. Per MD will place order for IV dextrose.
[2025-08-23 23:00] LABS: Hematocrit 22.9 % (41.0-53.0)
[2025-08-23 23:01] LABS: Hemoglobin 7.8 g/dL (13.5-16.0)
[2025-08-23] MEDS: DEXTROSE 5%-WATER 1,000 ML 60 ML IV (23:06)
[2025-08-23 23:31] VITALS: BP 95/62; PULSE 63; RESP 16; TEMP 36.4; O2SAT 96
--- NOTE | 2025-08-23 23:36 | PC.NURSE ---
Bedside glucose is 47. Pt is arousable to name. Resident Dr. Cruz made aware, per MD administer 1 amp of D50 IV.
--- NOTE | 2025-08-23 23:57 | PC.NURSE ---
Report given to CHANTELL Gooden
[2025-08-24] VITALS (13 sets, daily range): BP systolic 97–118; BP diastolic 63–79; PULSE 57–95; RESP 12–20; TEMP 36.1–37.2; O2SAT 92–99; BMI 29.1
--- NOTE | 2025-08-24 | PC.NURSE ---
Resident Dr. Rivera at bedside. Made aware BS was 145 after D50 and BP 98/70. Per MD recheck bedside glucose in 1 hour. Aware pt will be in room 358, will let floor nurse know to recheck bedside glucose.
--- NOTE | 2025-08-24 00:20 | PC.NURSE ---
Called hospitalist spoke to Dr. Rivera regarding ordered 1 unit of PRBCs, informed MD no order placed to transfuse blood product, per MD hold blood transfusion for now. CHANTELL Gooden made aware.
[2025-08-24] MEDS: ONDANSETRON INJ 2 MG/ML INJ 2 ML 4 MG IVP ×2 (03:54→19:55)
[2025-08-24] MEDS: PANTOPRAZOLE/NS 80MG IV PREMIX 80 MG/100 ML BAG 10 MG IV (05:52)
[2025-08-24 07:02] LABS: Basophils # (Auto) 0.1 Thou/mm3 (0.0-0.2); Basophils % (Auto) 2 % (0-2.5); Eosinophils # (Auto) 0.2 Thou/mm3 (0.0-0.5); Eosinophils % (Auto) 5 % (0-10); Hematocrit 24.6 % (41.0-53.0); Immature Granulocytes Auto 0.02 Thou/mm3 (0.00-0.00); Lymphocytes # (Auto) 0.7 Thou/mm3 (1.0-4.8); Lymphocytes % (Auto) 16 % (10-50); Mean Corpuscular HGB Conc 34.6 g/dl (31.0-37.0); Mean Corpuscular Hemoglobin 29.7 pg (25.0-35.0); Mean Corpuscular Volume 86 fL (80-100); Monocytes # (Auto) 0.3 Thou/mm3 (0.0-0.8); Monocytes % (Auto) 6 % (0-12); Neutrophils # (Auto) 3.3 Thou/mm3 (1.8-7.7); Neutrophils % (Auto) 72 % (37-80); Nucleated Red Blood Cell # 0.00 Thou/mm3 (0.00-0.00); Nucleated Red Blood Cell % 0 /100 WBC (0); RDW Standard Deviation 78.4 fL (35.1-43.9); Red Blood Count 2.86 Miln/mm3 (4.50-5.90); White Blood Count 4.6 Thou/mm3 (3.8-10.6)
[2025-08-24 07:05] LABS: Hemoglobin 8.5 g/dL (13.5-16.0); Platelet Count 58 Thou/mm3 (140-440)
[2025-08-24 07:22] LABS: INR 1.3 (0.9-1.3); Prothrombin Time 13.6 Seconds (9.0-12.2)
[2025-08-24 07:42] LABS: Alanine Aminotransferase 16 U/L (10-49); Albumin, Serum 3.1 gm/dL (3.5-5.0); Albumin/Globulin Ratio 0.8 (1.2-2.2); Alkaline Phosphatase 178 U/L (46-116); Anion Gap 13 (7-16); Aspartate Amino Transferase 116 U/L (0-34); BUN/Creatinine Ratio 8 Ratio (12-20); Bilirubin,Total 4.1 mg/dL (0.3-1.2); Blood Urea Nitrogen < 5 mg/dL (9-23); Calcium 7.4 mg/dL (8.3-10.6); Calcium (Corrected) 8.1 mg/dL (8.5-10.1); Carbon Dioxide 23.5 mMol/L (20.0-31.0); Cardiac Risk Estimate 12.7 RATIO (4.0-6.7); Chloride 106 mMol/L (98-107); Cholesterol 152 mg/dL (132-200); Creatinine (Component) 0.6 mg/dL (0.6-1.3); Estimated Creatinine Clearance 154.2 mL/min (>60); Globulin 3.7 gm/dL (2.3-3.5); Glucose 126 mg/dL (74-106); HDL Cholesterol 12 mg/dL (40-60); LDL Cholesterol,Calculated 111 mg/dL (0-130); Magnesium 1.2 mg/dL (1.6-2.6); Osmolality,Calculated 282 (275-295); Phosphorous 4.8 mg/dL (2.4-5.1); Potassium 4.7 mMol/L (3.4-5.1); Sodium 142 mMol/L (136-145); Total Protein 6.8 gm/dL (5.7-8.2); Triglycerides 145 mg/dL (30-150); eGFR > 60 See Note
[2025-08-24 08:30] LABS: Slide Review Platelets confirmed
[2025-08-24] MEDS: Magnesium Sulfate 4 GM Ivpb 4 GM/50 ML BAG IV ×2 (09:22→16:04)
[2025-08-24] MEDS: THIAMINE 100 MG TABLET PO (09:24)
[2025-08-24] MEDS: FOLIC ACID 1 MG TABLET PO (09:24)
--- NOTE | 2025-08-24 09:42 | PC.SS ---
Follow up note: Vomiting blood. EGD pending. On IV Octreotide drip. On CWAL Protocol.
[2025-08-24] MEDS: OCTREOTIDE ACET INJ 1,000 MCG in SODIUM CHLORIDE 0.9% 100 ML 5.1 MCG IV (09:49)
--- NOTE | 2025-08-24 10:23 | XR_ITS ---
Examination: Abdomen sonogram, complete Date and time of exam: August 24, 2025, 1409 hours INDICATIONS: Distended abdomen today. Technique: Multiple real-time grayscale transabdominal sonographic images of the abdomen have been obtained. Findings: Negative for gallstones Gallbladder wall is thickened 0.7 cm with edema Common bile duct 0.3 cm Pancreatic head 3.1 cm Aorta not enlarged Liver 15.4 cm lobular contour Normal hepatopetal portal venous flow Patent IVC Right kidney 10.9 cm renal cortex 1.9 cm Left kidney 11.7 cm renal cortex 1.5 cm Moderate renal scar formation Spleen 15.1 cm IMPRESSION: Findings consistent with acute acalculous cholecystitis, consider HIDA scan or MRCP follow-up Primary hepatocellular disease Significant splenomegaly
[2025-08-24] MEDS: cefTRIAXone/D5w 1gm IV premix 1 GM/50 ML BAG IV (10:45)
--- NOTE | 2025-08-24 11:01 | ESPR_ITS ---
<Statement entered by Dwight Edmondson MD - 08/24/25 16:54> Patient seen and assessed in hospital bed states that he has been having hemoptysis but denies having any hematemesis, nausea, melena or hematochezia. Patient continues to drink alcohol on a daily basis and is on CIWA protocol. GI has been consulted and EGD will be completed for suspected variceal bleed. IV octreotide is on and will be continued for 5 days. Ultrasound of the abdomen is suspicious for acute acalculous cholecystitis and if patient is unable to tolerate diet will consider HIDA scan. I have personally seen and examined the patient. I agree with the resident's assessment and plan as documented below. Dwight Edmondson DO PGY-2 Internal Medicine - [facility] Documentation for date of: 08/24/25 Subjective Subjective Interval history: Patient seen at bedside. No acute overnight events. Patient denies any chest pain, shortness of breath, nausea, vomiting, dizziness. Patient is complaining of abdominal plain on the right side. Abdominal ultrasound obtained and it shows acute acalculous cholecystitis. Chest x-ray shows atelectasis in the left lower lobe, no pneumonia. EGD done and it showed grade 1 esophageal varices, erythematous mucosa in the stomach. GI recommended clear liquid diet today, advance to 2 g sodium diet tomorrow, continue octreotide for at least 5 days. Exam Vital Signs Temp Pulse Resp BP Pulse Ox O2 Del Method O2 Flow Rate 98.0 F 82 17 97/67 99 Nasal Cannula 4 08/24/25 08:00 08/24/25 08:00 08/24/25 08:00 08/24/25 08:00 08/24/25 08:00 08/24/25 08:00 08/24/25 08:00 Narrative Exam GENERAL: NAD, AAOx3, in no acute distress, malodorous HEENT: Moist mucosa. Eyes open, symmetrical, & clear CARDIO: Regular rhythm Noted. No Murmurs. PULM: No noted coughing/dyspnea CTA B/L, no R/W/R GI: Abdomen firm, mildly distended, tenderness to the right upper quadrant SKIN/MSK/EXT: Chronic lesions on bilat shins, no pain on palpation. Pedal pulses present B/L NEURO: AAOx3, no focal neuro deficits, able to move all 4 extremities Objective Labs 08/24/25 06:32 08/24/25 06:32 Labs: Laboratory Results - last 24 hr 08/23/25 08/23/25 08/23/25 09:15 19:17 22:46 WBC 7.9 RBC 2.86 L Hgb 8.4 L 7.8 L Hct 23.8 L 22.9 L MCV 83 MCH 29.4 MCHC 35.3 RDW Std Deviation 74.0 H Plt Count 57 L D Neut % (Auto) 66 Lymph % (Auto) 20 [place] % (Auto) 6 Eos % (Auto) 6 Baso % (Auto) 1 Neut # (Auto) 5.3 Lymph # (Auto) 1.6 [place] # (Auto) 0.4 Eos # (Auto) 0.5 Baso # (Auto) 0.1 Immature Gran # (Auto) 0.04 H Absolute Nucleated RBC 0.00 Immature Gran % 1 H Nucleated RBC % 0 PT 14.0 H INR 1.3 Sodium 137 Potassium 3.7 Chloride 102 Carbon Dioxide 21.9 Anion Gap 13 BUN < 5 L Creatinine 0.7 Estim Creat Clear Calc Not Performed. eGFR > 60 BUN/Creatinine Ratio 7 L Glucose 94 Calculated Osmolality 271 L Calcium 8.2 L Corrected Calcium 8.7 Phosphorus Magnesium Total Bilirubin 4.5 H AST 92 H ALT 15 Alkaline Phosphatase 213 H D Ammonia 35 H Total Protein 7.6 Albumin 3.4 L Globulin 4.2 H Albumin/Globulin Ratio 0.8 L Triglycerides Cholesterol LDL Cholesterol, Calc HDL Cholesterol Cholesterol/HDL Ratio Urine Opiates Screen Negative Urine Fentanyl Screen Negative Ur Barbiturates Screen Negative U Amphetamin/Meth Scrn Negative U Benzodiazepines Scrn Positive A U Cocaine Metab Screen Negative U Marijuana (THC) Screen Negative Misc Test Result Platelets confirmed Blood Type O Positive Antibody Screen NEGATIVE Crossmatch See Detail Blood Bank Wristband ID Yes 08/24/25 06:32 WBC 4.6 D RBC 2.86 L Hgb 8.5 L Hct 24.6 L MCV 86 MCH 29.7 MCHC 34.6 RDW Std Deviation 78.4 H Plt Count 58 L Neut % (Auto) 72 Lymph % (Auto) 16 [place] % (Auto) 6 Eos % (Auto) 5 Baso % (Auto) 2 Neut # (Auto) 3.3 Lymph # (Auto) 0.7 L [place] # (Auto) 0.3 Eos # (Auto) 0.2 Baso # (Auto) 0.1 Immature Gran # (Auto) 0.02 H Absolute Nucleated RBC 0.00 Immature Gran % 0 Nucleated RBC % 0 PT 13.6 H INR 1.3 Sodium 142 Potassium 4.7 D Chloride 106 Carbon Dioxide 23.5 Anion Gap 13 BUN < 5 L Creatinine 0.6 Estim Creat Clear Calc 154.2 eGFR > 60 BUN/Creatinine Ratio 8 L Glucose 126 H Calculated Osmolality 282 Calcium 7.4 L Corrected Calcium 8.1 L Phosphorus 4.8 Magnesium 1.2 L Total Bilirubin 4.1 H AST 116 H ALT 16 Alkaline Phosphatase 178 H D Ammonia Total Protein 6.8 Albumin 3.1 L Globulin 3.7 H Albumin/Globulin Ratio 0.8 L Triglycerides 145 Cholesterol 152 LDL Cholesterol, Calc 111 HDL Cholesterol 12 L Cholesterol/HDL Ratio 12.7 H Urine Opiates Screen Urine Fentanyl Screen Ur Barbiturates Screen U Amphetamin/Meth Scrn U Benzodiazepines Scrn U Cocaine Metab Screen U Marijuana (THC) Screen Misc Test Result Platelets confirmed Blood Type Antibody Screen Crossmatch Blood Bank Wristband ID Quality Measures Quality Measures none Assessment & Plan Assessment Current Active Medications: Generic Name Dose Route Start Last Admin Trade Name Freq PRN Reason Stop Dose Admin Acetaminophen 650 mg 08/23/25 21:15 Acetaminophen 325 Mg Tablet PO 09/22/25 21:14 Q6H PRN Fever >100.4 Acetaminophen 650 mg 08/23/25 21:15 Acetaminophen 325 Mg Tablet PO 09/22/25 21:14 Q6H PRN PAIN SCALE 1-3 (mild Folic Acid 1 mg 08/24/25 09:00 08/24/25 09:24 Folic Acid 1 Mg Tablet PO 09/23/25 08:59 1 mg QDAY BRANDI Administration Magnesium Sulfate 4 gm in 50 mls @ 12.5 mls/hr 08/24/25 08:10 08/24/25 09:22 Magnesium Sulfate Ivpb IV 08/24/25 12:09 12.5 mls/hr X1 ONE Administration Octreotide Acetate 1,000 mcg/ 102 mls @ 5.1 mls/hr 08/24/25 09:30 08/24/25 09:49 Sodium Chloride IV 08/28/25 13:29 50 mcg/hr .Q20H BRANDI 5.1 mls/hr Protocol Administration 50 MCG/HR Ceftriaxone Sodium/Dextrose 1 gm in 50 mls @ 100 mls/hr 08/24/25 10:30 08/24/25 10:45 Rocephin/D5w 1gm Iv Premix IV 08/31/25 10:29 100 mls/hr QDAY BRANDI Administration Lorazepam 0.5 mg 08/23/25 23:17 Lorazepam 0.5 Mg Tablet PO 08/28/25 23:16 Q4HR PRN ciwa 2-6 Lorazepam 1 mg 08/23/25 23:17 08/24/25 09:49 Lorazepam 0.5 Mg Tablet PO 08/28/25 23:16 1 mg Q4HR PRN Administration ciwa 7-11 Lorazepam 2 mg 08/23/25 23:17 Lorazepam 0.5 Mg Tablet PO 08/28/25 23:16 Q4HR PRN CIWA 12-15 Ondansetron HCl 4 mg 08/23/25 21:15 08/24/25 03:54 Ondansetron Inj 2 Mg/Ml Inj 2 Ml IVP 09/22/25 21:14 4 mg Q6H PRN Administration NAUSEA OR VOMITING Protocol Pantoprazole Sodium 40 mg 08/24/25 09:00 08/24/25 09:23 Pantoprazole Inj 40 Mg Vial IVP 09/23/25 08:59 40 mg BID BRANDI Administration Sennosides 1 tab 08/23/25 21:15 Senna Tablet PO 09/22/25 21:14 QDAY PRN constipation Protocol Thiamine HCl 100 mg 08/24/25 09:00 08/24/25 09:24 Thiamine 100 Mg Tablet PO 09/23/25 08:59 100 mg QDAY BRANDI Administration Plan 44-year-old male with past medical history of chronic alcohol use, cirrhosis complicated by esophageal varices, homelessness presented to the ED with complaints of bloody vomiting x1 day. He was admitted for upper GI Bleed w/u. #Upper GI bleed #Grade 1 esophageal varices #Erythematous mucosa in stomach History of hematemesis, alcohol use, alcoholic cirrhosis. Hemoglobin 8.4, hematocrit 23.8, platelets 57. EGD 08/24 showed grade 1 esophageal varices, erythematous mucosa in stomach As patient continues to drink prognosis is poor Plan: ?GI consulted, see recs ?Protonix 40 mg twice daily ?Continue octreotide for at least 5 days ?Clear liquid diet today, advance to 2 g sodium diet tomorrow #Cirrhosis 2/ #Alcohol use disorder Last drink 08/23 at 3 PM CIWA ranged from 0-10 today Plan ?Continue CIWA protocol ?Thiamine 100 mg daily ? Folic acid 1 mg daily #Acute acalculous cholecystitis Abdominal ultrasound done 08/24 showed no gallstones Vitals and labs stable Plan ? Monitor to see if patient tolerates diet ?If does not tolerate diet go ahead with HIDA scan #Transaminitis AST 92, ALT 15, ALP 213, total bilirubin 4.5 His baseline total bilirubin 4.5. Most probably due to alcohol induced cirrhosis ?Trend LFTs Health Maintenance: Code status: Full DVT prophylaxis: SCD Diet: CLD, advance to low sodium tomorrow Disposition: Tele Case discussed with my attending Dr. Child, and senior resident, Dr. Debo Guzmán MD PGY-1 Attending Provider Attestation/Addendum I, Anai Child, DO, attest that I was physically present for the pond portions of the service and evaluated the patient with the resident and I reviewed and discussed the case with the resident and agree with the resident's findings and plans of care as documented above Patient is a 44 yo male with Pmhx of chronic alcohol abuse, alcohol withdrawals. Alcoholic liver cirrhosis, esophageal varices, homelessness who was admitted for hematemesis. Patient states that he has been coughing up blood for 2-3 days. He denies any fevers, chills, nausea or vomiting. Patient is noted to have poor hygiene and malodor. He reports some right upper abdominal pain on palpation. However, abdomen is soft and mildly distended. Patient is currently NPO and pending EGD. He continues to drink heavily. He reports mild headache and anxiety. He has some visible tremors. Patient denies any tactile, auditory or visual hallucinations. He also denies nausea. Will monitor closely for withdrawals and f/u with EGD. Patient remains on octreotide and protonix at this time. Will obtain CXR as patient complains of hemoptysis.
[2025-08-24 11:29] LABS: Calcium, Ionized 4.1 mg/dL (4.6-5.6)
--- NOTE | 2025-08-24 15:33 | PC.SS ---
SS met with patient regarding his d/c plan. Pt is alert/oriented. Pt was admitted for Hematemesis. Pt confirmed demographic and contact information is correct on facesheet. Pt is homeless and has been staying at the [facility]. Pt ambulates independently without assistance or DME. Pt is ok with all ADLs. Pt is currently on 2 liters of O2. Pt does not utilize O2 at [facility]. Patient?s pharmacy of choice is [facility] [address]. Pt named his friend (ex ) Amparoelier Louelos medical decision maker if he is unable. Patient?s choice is to return to [facility] upon d/c. Pt states he has an appointment with PCP, [facility] on Aug 30, 2025. Pt states he consumed 3- 25oz can of beer yesterday. Pt states when gathering in a social enviroment with friends he consumes alcohol. Pt states he has attended Alchol[facility]Drug Programs in the past. SS offered community resources and pt declined. Pt states he will return to the [facility] at d/c. D/C plan: Return home Next of Kin: Amparo Pennington, friend, phone# [phone] PCP: [facility] Address: Correct on facesheet
--- NOTE | 2025-08-24 15:35 | SUR.PHASEI ---
1459: pt arrived to PACU via gurney drowsy but arouses to voice, breathing unlabored, report from Ivana ABDUL 1535: pt awake, alert, able to follow commands, breathing unlabored, v/s stable, pt tolerating oral fluids without difficulty swallowing or n/v, report called to to Rach ABDUL, pt transferred to room at this time.
--- NOTE | 2025-08-24 15:41 | XR_ITS ---
EXAMINATION: AP chest single view TECHNIQUE: AP upright portable chest single view Date and time: August 14, 2025, 1552 hours, comparison August 06, 2025 INDICATIONS: Hemoptysis today FINDINGS: Atelectasis in the left lower lung zone No lobar pneumonia Old right-sided rib fractures Mild prominence cardiac contour Old fracture right clavicle IMPRESSION: Atelectasis in the left lower lobe, no pneumonia Please see the CT chest report June 24, 2025
[2025-08-24] MEDS: ACETAMINOPHEN 325 MG TABLET 650 MG PO (20:11)
[2025-08-25] VITALS: BP 111/70; PULSE 81; PULSE 82; RESP 20; TEMP 36.7; O2SAT 95
[2025-08-25 04:00] VITALS: BP 118/73; PULSE 88; PULSE 89; RESP 20; TEMP 36.7; O2SAT 94
[2025-08-25] MEDS: ACETAMINOPHEN 325 MG TABLET 650 MG PO ×2 (04:32→19:47)
[2025-08-25] MEDS: ONDANSETRON INJ 2 MG/ML INJ 2 ML 4 MG IVP (04:33)
[2025-08-25] MEDS: OCTREOTIDE ACET INJ 1,000 MCG in SODIUM CHLORIDE 0.9% 100 ML 5.1 MCG IV (04:58)
[2025-08-25 05:41] LABS: Basophils # (Auto) 0.0 Thou/mm3 (0.0-0.2); Basophils % (Auto) 1 % (0-2.5); Eosinophils # (Auto) 0.2 Thou/mm3 (0.0-0.5); Eosinophils % (Auto) 6 % (0-10); Hematocrit 22.3 % (41.0-53.0); Immature Granulocytes Auto 0.02 Thou/mm3 (0.00-0.00); Lymphocytes # (Auto) 0.4 Thou/mm3 (1.0-4.8); Lymphocytes % (Auto) 9 % (10-50); Mean Corpuscular HGB Conc 34.5 g/dl (31.0-37.0); Mean Corpuscular Hemoglobin 29.8 pg (25.0-35.0); Mean Corpuscular Volume 86 fL (80-100); Monocytes # (Auto) 0.3 Thou/mm3 (0.0-0.8); Monocytes % (Auto) 8 % (0-12); Neutrophils # (Auto) 3.0 Thou/mm3 (1.8-7.7); Neutrophils % (Auto) 75 % (37-80); Nucleated Red Blood Cell # 0.00 Thou/mm3 (0.00-0.00); Nucleated Red Blood Cell % 0 /100 WBC (0); RDW Standard Deviation 78.2 fL (35.1-43.9); Red Blood Count 2.58 Miln/mm3 (4.50-5.90); White Blood Count 4.0 Thou/mm3 (3.8-10.6)
[2025-08-25 05:50] LABS: Hemoglobin 7.7 g/dL (13.5-16.0); Platelet Count 41 Thou/mm3 (140-440)
[2025-08-25 06:33] LABS: Alanine Aminotransferase 16 U/L (10-49); Albumin, Serum 3.2 gm/dL (3.5-5.0); Albumin/Globulin Ratio 0.9 (1.2-2.2); Alkaline Phosphatase 171 U/L (46-116); Anion Gap 10 (7-16); Aspartate Amino Transferase 121 U/L (0-34); BUN/Creatinine Ratio 8 Ratio (12-20); Bilirubin,Total 6.5 mg/dL (0.3-1.2); Blood Urea Nitrogen < 5 mg/dL (9-23); Calcium 8.0 mg/dL (8.3-10.6); Calcium (Corrected) 8.6 mg/dL (8.5-10.1); Carbon Dioxide 27.6 mMol/L (20.0-31.0); Chloride 98 mMol/L (98-107); Creatinine (Component) 0.6 mg/dL (0.6-1.3); Estimated Creatinine Clearance 154.2 mL/min (>60); Globulin 3.7 gm/dL (2.3-3.5); Glucose 118 mg/dL (74-106); Magnesium 1.5 mg/dL (1.6-2.6); Osmolality,Calculated 270 (275-295); Potassium 3.8 mMol/L (3.4-5.1); Sodium 136 mMol/L (136-145); Total Protein 6.9 gm/dL (5.7-8.2); eGFR > 60 See Note
[2025-08-25 08:00] VITALS: BP 135/90; PULSE 82; PULSE 88; RESP 19; TEMP 19.6; O2SAT 98
[2025-08-25] MEDS: FOLIC ACID 1 MG TABLET PO (08:08)
[2025-08-25] MEDS: THIAMINE 100 MG TABLET PO (08:08)
[2025-08-25] MEDS: cefTRIAXone/D5w 1gm IV premix 1 GM/50 ML BAG IV (08:09)
[2025-08-25 08:58] LABS: Misc Send Out* See Sep Rpt
--- NOTE | 2025-08-25 10:12 | PD.SURCONS ---
HPI Consult details Consult date: 08/25/25 Reason for consultation narrative: Possible acalculous cholecystitis History of present illness: 44-year-old homeless man with history of alcohol use disorder and liver cirrhosis was admitted with hematemesis. Patient was evaluated by Dr. Perla who performed an EGD that revealed esophageal varices. He denies postprandial abdominal pain or nausea. An abdominal ultrasound was performed that did not show gallstones however revealed gallbladder wall thickening with ascites. Meds Home Medications and Allergies Home Medications ?Medication ?Instructions ?Recorded ?Confirmed ?Type lactulose 10 gram/15 mL oral 10 g PO TID liver cirrhosis 08/24/25 08/24/25 History solution propranolol 10 mg tablet 20 mg PO Q12H 08/24/25 08/24/25 History Allergies Allergy/AdvReac Type Severity Reaction Status Date / Time No Known Allergies Allergy Verified 08/16/25 18:33 Exam Vital Signs Temp Pulse Resp BP Pulse Ox O2 Del Method O2 Flow Rate 67.2 F L 88 19 135/90 H 98 Room Air 2 08/25/25 08:00 08/25/25 08:00 08/25/25 08:00 08/25/25 08:00 08/25/25 08:00 08/25/25 08:00 08/25/25 00:00 Results Results: Laboratory Laboratory results: results reviewed Results: Imaging US - abdomen: report reviewed and image reviewed Assessment & Plan Additional Assessment Additional comments: Cirrhosis of the liver with portal hypertension, splenomegaly and thrombocytopenia. Gallbladder wall thickening in the presence of ascites cannot be accurately assessed with an ultrasound. Increasing bilirubin is most likely due to intrinsic liver disease rather than cholecystitis Plan Patient is not a candidate for surgical intervention. I recommend HIDA scan rather than MRCP if cholecystitis remains a concern. If there is cystic duct obstruction patient will require cholecystostomy tube, otherwise no intervention is indicated.
[2025-08-25 11:05] LABS: Slide Review Platelets confirmed
--- NOTE | 2025-08-25 11:46 | ESPR_ITS ---
<Statement entered by Elmira Lay MD - 08/28/25 17:19> I reviewed above note and agree with findings and plans. I have also personally examined the patient with medicine team and went over assessment and plan with medical team including grinder set up operator internal and resident physician. Documentation for date of: 08/25/25 Subjective Subjective Interval history: Patient seen and assessed in hospital bed denies having any concerning symptoms at this time. EGD showed grade 1 esophageal varices, erythematous mucosa in the stomach. GI recommends clear liquid diet and advancing as tolerated. Patient will continue octreotide drip for total of 5 days. As per GI patient continues to drink and his prognosis remains very poor. Will monitor patient's bilirubin level and consider obtaining HIDA scan. General surgery does not believe the patient is a surgical candidate at this time and believes elevated liver enzymes and bilirubin is secondary to liver disease. Exam Vital Signs Temp Pulse Resp BP Pulse Ox O2 Del Method O2 Flow Rate 67.2 F L 88 19 135/90 H 98 Room Air 2 08/25/25 08:00 08/25/25 08:00 08/25/25 08:00 08/25/25 08:00 08/25/25 08:00 08/25/25 08:00 08/25/25 00:00 Narrative Exam GENERAL: NAD, AAOx3, in no acute distress, malodorous HEENT: Moist mucosa. Eyes open, symmetrical, & clear CARDIO: Regular rhythm Noted. No Murmurs. PULM: No noted coughing/dyspnea CTA B/L, no R/W/R GI: Abdomen firm, mildly distended, tenderness to the right upper quadrant SKIN/MSK/EXT: Chronic lesions on bilat shins, no pain on palpation. Pedal pulses present B/L NEURO: AAOx3, no focal neuro deficits, able to move all 4 extremities Objective Labs 08/25/25 04:45 08/25/25 04:45 Labs: Laboratory Results - last 24 hr 08/25/25 04:45 WBC 4.0 RBC 2.58 L Hgb 7.7 L Hct 22.3 L MCV 86 MCH 29.8 MCHC 34.5 RDW Std Deviation 78.2 H Plt Count 41 L D Neut % (Auto) 75 Lymph % (Auto) 9 L [place] % (Auto) 8 Eos % (Auto) 6 Baso % (Auto) 1 Neut # (Auto) 3.0 Lymph # (Auto) 0.4 L [place] # (Auto) 0.3 Eos # (Auto) 0.2 Baso # (Auto) 0.0 Immature Gran # (Auto) 0.02 H Absolute Nucleated RBC 0.00 Immature Gran % 1 H Nucleated RBC % 0 Sodium 136 Potassium 3.8 D Chloride 98 Carbon Dioxide 27.6 Anion Gap 10 BUN < 5 L Creatinine 0.6 Estim Creat Clear Calc 154.2 eGFR > 60 BUN/Creatinine Ratio 8 L Glucose [address] Glu mg/dL Cancelled Hemoglobin A1c Cancelled Calculated Osmolality 270 L Calcium 8.0 L Corrected Calcium 8.6 Magnesium 1.5 L Total Bilirubin 6.5 H D AST 121 H ALT 16 Alkaline Phosphatase 171 H Total Protein 6.9 Albumin 3.2 L Globulin 3.7 H Albumin/Globulin Ratio 0.9 L Misc Test Result Platelets confirmed Quality Measures Quality Measures none Assessment & Plan Assessment Current Active Medications: Generic Name Dose Route Start Last Admin Trade Name Freq PRN Reason Stop Dose Admin Acetaminophen 650 mg 08/23/25 21:15 Acetaminophen 325 Mg Tablet PO 09/22/25 21:14 Q6H PRN Fever >100.4 Acetaminophen 650 mg 08/23/25 21:15 08/25/25 04:32 Acetaminophen 325 Mg Tablet PO 09/22/25 21:14 650 mg Q6H PRN Administration PAIN SCALE 1-3 (mild Folic Acid 1 mg 08/24/25 09:00 08/25/25 08:08 Folic Acid 1 Mg Tablet PO 09/23/25 08:59 1 mg QDAY BRANDI Administration Octreotide Acetate 1,000 mcg/ 102 mls @ 5.1 mls/hr 08/24/25 09:30 08/25/25 04:58 Sodium Chloride IV 08/28/25 13:29 50 mcg/hr .Q20H BRANDI 5.1 mls/hr Protocol Administration 50 MCG/HR Ceftriaxone Sodium/Dextrose 1 gm in 50 mls @ 100 mls/hr 08/24/25 10:30 08/25/25 08:09 Rocephin/D5w 1gm Iv Premix IV 08/31/25 10:29 100 mls/hr QDAY BRANDI Administration Lactulose 10 gm 08/25/25 14:00 Lactulose Syrup 20 Gm/30 Ml Udc PO 09/24/25 13:59 TID BRANDI Protocol Lorazepam 0.5 mg 08/23/25 23:17 08/25/25 08:08 Lorazepam 0.5 Mg Tablet PO 08/28/25 23:16 0.5 mg Q4HR PRN Administration ciwa 2-6 Lorazepam 1 mg 08/23/25 23:17 08/25/25 04:31 Lorazepam 0.5 Mg Tablet PO 08/28/25 23:16 1 mg Q4HR PRN Administration ciwa 7-11 Lorazepam 2 mg 08/23/25 23:17 08/24/25 20:09 Lorazepam 0.5 Mg Tablet PO 08/28/25 23:16 2 mg Q4HR PRN Administration CIWA 12-15 Ondansetron HCl 4 mg 08/23/25 21:15 08/25/25 04:33 Ondansetron Inj 2 Mg/Ml Inj 2 Ml IVP 09/22/25 21:14 4 mg Q6H PRN Administration NAUSEA OR VOMITING Protocol Pantoprazole Sodium 40 mg 08/24/25 09:00 08/25/25 08:08 Pantoprazole Inj 40 Mg Vial IVP 09/23/25 08:59 40 mg BID BRANDI Administration Sennosides 1 tab 08/23/25 21:15 Senna Tablet PO 09/22/25 21:14 QDAY PRN constipation Protocol Thiamine HCl 100 mg 08/24/25 09:00 08/25/25 08:08 Thiamine 100 Mg Tablet PO 09/23/25 08:59 100 mg QDAY BRANDI Administration Plan 44-year-old male with past medical history of chronic alcohol use, cirrhosis complicated by esophageal varices, homelessness presented to the ED with complaints of bloody vomiting x1 day. He was admitted for upper GI Bleed w/u. #Acute blood loss anemia #Upper GI bleed #Grade 1 esophageal varices #Erythematous mucosa in stomach History of hematemesis, alcohol use, alcoholic cirrhosis. Hemoglobin 8.4, hematocrit 23.8, platelets 57. EGD 08/24 showed grade 1 esophageal varices, erythematous mucosa in stomach As patient continues to drink prognosis is poor Plan: ?GI consulted, appreciate recommendations ?Protonix 40 mg twice daily ?Continue octreotide for at least 5 days ?Clear liquid diet today, advance to 2 g sodium diet tomorrow #Decompensated liver cirrhosis 2/2 #Thrombocytopenia #Alcohol use disorder 17?points MELD Score (2016)* 6.0% Estimated 3-Month Mortality 8?points Child Class B Indication for transplant evaluation Abdominal surgery juliana-operative mortality: 30% Last drink 08/23 at 3 PM; patient not candidate for transplant at this time, needs to be 6 months sober CIWA ranged from 0-10 today Plan ?Continue CIWA protocol ?Thiamine 100 mg daily ?Folic acid 1 mg daily -Ceftriaxone 1 g for SBP prophylaxis -Lactulose 10 mg 3 times daily, will achieve 2-3 bowel movements per day #Acute acalculous cholecystitis Abdominal ultrasound done 08/24 showed findings consistent with acute acalculous cholecystitis, primary hepatocellular disease, significant splenomegaly T. bili 6.5, AST 121, ALT 116, alk phos 171 General Surgery consulted, does not think patient is surgical candidate at this time as elevated bilirubin likely secondary to underlying liver disease Plan ?If does not tolerate diet go ahead with HIDA scan Health Maintenance: Code status: Full DVT prophylaxis: SCD Diet: CLD, advance to low sodium tomorrow Disposition: Tele Patient seen and assessed with attending Dr. Rosanne Edmondson, DO PGY-2 Internal Medicine - [facility]
[2025-08-25 12:00] VITALS: BP 114/77; PULSE 81; PULSE 82; RESP 18; TEMP 37; O2SAT 98
[2025-08-25] MEDS: LACTULOSE SYRUP 20 GM/30 ML UDC 10 GM PO ×2 (13:09→21:26)
[2025-08-25 16:00] VITALS: BP 122/83; PULSE 85; PULSE 94; RESP 17; TEMP 37.2; O2SAT 95
[2025-08-25 20:00] VITALS: BP 117/82; PULSE 102; PULSE 89; RESP 18; TEMP 37.3; O2SAT 92
--- NOTE | 2025-08-25 20:53 | PD.IMPROG ---
Documentation for date of: 08/25/25 Subjective Subjective Interval history: Hemoglobin hematocrit 7.9 and 22.3 Upper endoscopy showed 1 to esophageal varices gastritis and esophagitis Abdominal ultrasound showed possibility of acute acalculous cholecystitis I do not think patient has that clinical picture No need for surgical intervention Exam Vital Signs Temp Pulse Resp BP Pulse Ox O2 Del Method O2 Flow Rate 99.2 F 102 H 18 117/82 92 L Room Air 2 08/25/25 20:00 08/25/25 20:00 08/25/25 20:00 08/25/25 20:00 08/25/25 20:00 08/25/25 20:00 08/25/25 00:00 Objective Labs 08/25/25 04:45 08/25/25 04:45 Labs: Laboratory Results - last 24 hr 08/25/25 04:45 WBC 4.0 RBC 2.58 L Hgb 7.7 L Hct 22.3 L MCV 86 MCH 29.8 MCHC 34.5 RDW Std Deviation 78.2 H Plt Count 41 L D Neut % (Auto) 75 Lymph % (Auto) 9 L [place] % (Auto) 8 Eos % (Auto) 6 Baso % (Auto) 1 Neut # (Auto) 3.0 Lymph # (Auto) 0.4 L [place] # (Auto) 0.3 Eos # (Auto) 0.2 Baso # (Auto) 0.0 Immature Gran # (Auto) 0.02 H Absolute Nucleated RBC 0.00 Immature Gran % 1 H Nucleated RBC % 0 Sodium 136 Potassium 3.8 D Chloride 98 Carbon Dioxide 27.6 Anion Gap 10 BUN < 5 L Creatinine 0.6 Estim Creat Clear Calc 154.2 eGFR > 60 BUN/Creatinine Ratio 8 L Glucose [address] Glu mg/dL Cancelled Hemoglobin A1c Cancelled Calculated Osmolality 270 L Calcium 8.0 L Corrected Calcium 8.6 Magnesium 1.5 L Total Bilirubin 6.5 H D AST 121 H ALT 16 Alkaline Phosphatase 171 H Total Protein 6.9 Albumin 3.2 L Globulin 3.7 H Albumin/Globulin Ratio 0.9 L Misc Test Result Platelets confirmed Impressions Impression: Gastritis 1+ esophageal varices Continue supportive care Assessment & Plan A&P Narrative # Hematemesis in setting of cirrhotic liver disease due to alcohol Plan Serial CBC IV Protonix IV octreotide at 50 mcg/h Consent obtained for fiberoptic esophagogastroduodenoscopy with possible therapeutic intervention under intravenous moderate sedation Will follow the patient Thank you for the opportunity to participate in the care of this patient Time Spent With Patient Time: Total time spent is greater than 50% in coordination of care (as documented) at patient's floor/unit and/or counseling patient:
[2025-08-26] VITALS: BP 121/78; PULSE 83; PULSE 98; RESP 14; TEMP 37; O2SAT 92
[2025-08-26] MEDS: OCTREOTIDE ACET INJ 1,000 MCG in SODIUM CHLORIDE 0.9% 100 ML 5.1 MCG IV (00:15)
[2025-08-26 04:00] VITALS: BP 113/78; PULSE 90; PULSE 93; RESP 18; TEMP 37.3; O2SAT 96
[2025-08-26] MEDS: LACTULOSE SYRUP 20 GM/30 ML UDC 10 GM PO (05:31)
[2025-08-26 05:59] LABS: Basophils # (Auto) 0.0 Thou/mm3 (0.0-0.2); Basophils % (Auto) 1 % (0-2.5); Eosinophils # (Auto) 0.3 Thou/mm3 (0.0-0.5); Eosinophils % (Auto) 6 % (0-10); Hematocrit 23.2 % (41.0-53.0); Immature Granulocytes Auto 0.02 Thou/mm3 (0.00-0.00); Lymphocytes # (Auto) 0.6 Thou/mm3 (1.0-4.8); Lymphocytes % (Auto) 12 % (10-50); Mean Corpuscular HGB Conc 34.5 g/dl (31.0-37.0); Mean Corpuscular Hemoglobin 30.3 pg (25.0-35.0); Mean Corpuscular Volume 88 fL (80-100); Monocytes # (Auto) 0.3 Thou/mm3 (0.0-0.8); Monocytes % (Auto) 7 % (0-12); Neutrophils # (Auto) 3.7 Thou/mm3 (1.8-7.7); Neutrophils % (Auto) 75 % (37-80); Nucleated Red Blood Cell # 0.02 Thou/mm3 (0.00-0.00); Nucleated Red Blood Cell % 0 /100 WBC (0); RDW Standard Deviation 80.2 fL (35.1-43.9); Red Blood Count 2.64 Miln/mm3 (4.50-5.90); White Blood Count 4.9 Thou/mm3 (3.8-10.6)
[2025-08-26 06:02] LABS: Hemoglobin 8.0 g/dL (13.5-16.0); Platelet Count 33 Thou/mm3 (140-440)
[2025-08-26 06:13] LABS: Alanine Aminotransferase 12 U/L (10-49); Albumin, Serum 3.5 gm/dL (3.5-5.0); Albumin/Globulin Ratio 1.0 (1.2-2.2); Alkaline Phosphatase 163 U/L (46-116); Anion Gap 10 (7-16); Aspartate Amino Transferase 93 U/L (0-34); BUN/Creatinine Ratio 9 Ratio (12-20); Bilirubin,Total 7.0 mg/dL (0.3-1.2); Blood Urea Nitrogen 6 mg/dL (9-23); Calcium 8.2 mg/dL (8.3-10.6); Calcium (Corrected) 8.6 mg/dL (8.5-10.1); Carbon Dioxide 25.8 mMol/L (20.0-31.0); Chloride 100 mMol/L (98-107); Creatinine (Component) 0.7 mg/dL (0.6-1.3); Estimated Creatinine Clearance 132.2 mL/min (>60); Globulin 3.5 gm/dL (2.3-3.5); Glucose 105 mg/dL (74-106); Osmolality,Calculated 269 (275-295); Potassium 3.6 mMol/L (3.4-5.1); Sodium 136 mMol/L (136-145); Total Protein 7.0 gm/dL (5.7-8.2); eGFR > 60 See Note
[2025-08-26 08:00] VITALS: BP 126/85; PULSE 90; RESP 18; TEMP 36.2; O2SAT 96
--- NOTE | 2025-08-26 08:20 | XR_ITS ---
Examination: ADRIAN, hepatobiliary radioisotope scan Date and time of exam: August 26, 2025, 1037 hours. INDICATIONS: Alcohol use disorder, cirrhosis, hematemesis abdominal pain postprandial this week elevated bilirubin and liver function tests Technique: 6.3 mCi of 99M Hepatolite administered. Serial imaging then obtained from immediate through 60 minutes. Findings: Enlarged liver with decreased isotope accumulation in the liver No definite gallbladder activity Common bile duct small bowel activity noted IMPRESSION: Primary bowel cellular disease No gallbladder activity consistent with cystic duct obstruction
[2025-08-26 08:31] LABS: Magnesium 1.3 mg/dL (1.6-2.6)
[2025-08-26] MEDS: cefTRIAXone/D5w 1gm IV premix 1 GM/50 ML BAG IV (09:06)
[2025-08-26] MEDS: Magnesium Sulfate 4 GM Ivpb 4 GM/50 ML BAG IV (09:07)
[2025-08-26] MEDS: THIAMINE 100 MG TABLET PO (09:07)
[2025-08-26] MEDS: FOLIC ACID 1 MG TABLET PO (09:07)
[2025-08-26] MEDS: LACTULOSE SYRUP 20 GM/30 ML UDC PO (09:07)
--- NOTE | 2025-08-26 09:47 | PC.SS ---
Follow up note: On IV Octrotide drip. Pt will return to [facility] upon dc.
--- NOTE | 2025-08-26 11:42 | ESPR_ITS ---
<Statement entered by Elmira Lay MD - 08/31/25 08:34> I reviewed above note and agree with findings and plans. I have also personally examined the patient with medicine team and went over assessment and plan with medical team including music internship and resident physician. <Statement entered by Dwight Edmondson MD - 08/26/25 16:12> Patient seen and assessed in hospital bed denies having any concerning symptoms at this time. Patient continues to be on octreotide drip for esophageal varices. HIDA scan ordered as patient is T. bili continues to uptrend. No surgical intervention necessary at this point per general surgery, will continue monitoring for any acute changes. I have personally seen and examined the patient. I agree with the resident's assessment and plan as documented below. Dwight Edmondson DO PGY-2 Internal Medicine - [facility] Documentation for date of: 08/26/25 Subjective Subjective Interval history: Patient seen at bedside. No acute overnight events. Patient denies any chest pain, shortness of breath, abdominal pain, nausea, vomiting, dizziness. Patient's vitals and labs were reviewed. Total bilirubin rising therefore obtaining HIDA scan today. Lactulose increased from home dose to 30 g 3 times daily. Magnesium replaced today. Exam Vital Signs Temp Pulse Resp BP Pulse Ox O2 Del Method O2 Flow Rate 97.2 F 90 18 126/85 H 96 Room Air 2 08/26/25 08:00 08/26/25 08:00 08/26/25 08:00 08/26/25 08:00 08/26/25 08:00 08/26/25 08:00 08/25/25 00:00 Narrative Exam GENERAL: NAD, AAOx3, in no acute distress, malodorous HEENT: Moist mucosa. Eyes open, symmetrical, & clear CARDIO: Regular rhythm Noted. No Murmurs. PULM: No noted coughing/dyspnea CTA B/L, no R/W/R GI: Abdomen firm but soft, mildly distended, no tenderness to palpation SKIN/MSK/EXT: Chronic lesions on bilat shins, no pain on palpation. Pedal pulses present B/L NEURO: AAOx3, no focal neuro deficits, able to move all 4 extremities Objective Labs 08/26/25 04:44 08/26/25 04:44 Labs: Laboratory Results - last 24 hr 08/23/25 08/26/25 09:15 04:44 WBC 4.9 RBC 2.64 L Hgb 8.0 L Hct 23.2 L MCV 88 MCH 30.3 MCHC 34.5 RDW Std Deviation 80.2 H Plt Count 33 L Neut % (Auto) 75 Lymph % (Auto) 12 [place] % (Auto) 7 Eos % (Auto) 6 Baso % (Auto) 1 Neut # (Auto) 3.7 Lymph # (Auto) 0.6 L [place] # (Auto) 0.3 Eos # (Auto) 0.3 Baso # (Auto) 0.0 Immature Gran # (Auto) 0.02 H Absolute Nucleated RBC 0.02 H Immature Gran % 0 Nucleated RBC % 0 Sodium 136 Potassium 3.6 Chloride 100 Carbon Dioxide 25.8 Anion Gap 10 BUN 6 L Creatinine 0.7 Estim Creat Clear Calc 132.2 eGFR > 60 BUN/Creatinine Ratio 9 L Glucose 105 Calculated Osmolality 269 L Calcium 8.2 L Corrected Calcium 8.6 Magnesium 1.3 L Total Bilirubin 7.0 H D AST 93 H ALT 12 Alkaline Phosphatase 163 H Total Protein 7.0 Albumin 3.5 Globulin 3.5 Albumin/Globulin Ratio 1.0 L Crossmatch See Detail Quality Measures Quality Measures none Assessment & Plan Assessment Current Active Medications: Generic Name Dose Route Start Last Admin Trade Name Emy PRN Reason Stop Dose Admin Acetaminophen 650 mg 08/23/25 21:15 Acetaminophen 325 Mg Tablet PO 09/22/25 21:14 Q6H PRN Fever >100.4 Acetaminophen 650 mg 08/23/25 21:15 08/25/25 19:47 Acetaminophen 325 Mg Tablet PO 09/22/25 21:14 650 mg Q6H PRN Administration PAIN SCALE 1-3 (mild Folic Acid 1 mg 08/24/25 09:00 08/26/25 09:07 Folic Acid 1 Mg Tablet PO 09/23/25 08:59 1 mg QDAY BRANDI Administration Octreotide Acetate 1,000 mcg/ 102 mls @ 5.1 mls/hr 08/24/25 09:30 08/26/25 00:15 Sodium Chloride IV 08/28/25 13:29 50 mcg/hr .Q20H BRANDI 5.1 mls/hr Protocol Administration 50 MCG/HR Magnesium Sulfate 4 gm in 50 mls @ 12.5 mls/hr 08/26/25 08:06 08/26/25 09:07 Magnesium Sulfate Ivpb IV 08/26/25 12:05 12.5 mls/hr X1 ONE Administration Lactulose 30 gm 08/26/25 14:00 Lactulose Syrup 20 Gm/30 Ml Udc PO 09/25/25 13:59 TID BRANDI Protocol Lorazepam 0.5 mg 08/23/25 23:17 08/26/25 00:14 Lorazepam 0.5 Mg Tablet PO 08/28/25 23:16 0.5 mg Q4HR PRN Administration ciwa 2-6 Lorazepam 1 mg 08/23/25 23:17 08/26/25 05:31 Lorazepam 0.5 Mg Tablet PO 08/28/25 23:16 1 mg Q4HR PRN Administration ciwa 7-11 Lorazepam 2 mg 08/23/25 23:17 08/25/25 19:46 Lorazepam 0.5 Mg Tablet PO 08/28/25 23:16 2 mg Q4HR PRN Administration CIWA 12-15 Ondansetron HCl 4 mg 08/23/25 21:15 08/25/25 04:33 Ondansetron Inj 2 Mg/Ml Inj 2 Ml IVP 09/22/25 21:14 4 mg Q6H PRN Administration NAUSEA OR VOMITING Protocol Pantoprazole Sodium 40 mg 08/24/25 09:00 08/26/25 09:07 Pantoprazole Inj 40 Mg Vial IVP 09/23/25 08:59 40 mg BID BRANDI Administration Sennosides 1 tab 08/23/25 21:15 Senna Tablet PO 09/22/25 21:14 QDAY PRN constipation Protocol Thiamine HCl 100 mg 08/24/25 09:00 08/26/25 09:07 Thiamine 100 Mg Tablet PO 09/23/25 08:59 100 mg QDAY BRANDI Administration Plan 44-year-old male with past medical history of chronic alcohol use, cirrhosis complicated by esophageal varices, homelessness presented to the ED with complaints of bloody vomiting x1 day. He was admitted for upper GI Bleed w/u. #Acute blood loss anemia #Upper GI bleed #Grade 1 esophageal varices #Erythematous mucosa in stomach History of hematemesis, alcohol use, alcoholic cirrhosis. Hemoglobin 8.4, hematocrit 23.8, platelets 57. EGD 08/24 showed grade 1 esophageal varices, erythematous mucosa in stomach As patient continues to drink prognosis is poor Plan: ?GI consulted, appreciate recommendations ?Protonix 40 mg twice daily ?Continue octreotide for at least 5 days (until 08/29) ?2 g sodium diet today #Decompensated liver cirrhosis 2/ #Thrombocytopenia #Alcohol use disorder 17?points MELD Score (2016)* 6.0% Estimated 3-Month Mortality 8?points Child Class B Indication for transplant evaluation Abdominal surgery juliana-operative mortality: 30% Last drink 08/23 at 3 PM; patient not candidate for transplant at this time, needs to be 6 months sober CIWA ranged from 0-10 today Plan ?Continue CIWA protocol ?Thiamine 100 mg daily ?Folic acid 1 mg daily -Ceftriaxone 1 g for SBP prophylaxis -Lactulose 30 mg 3 times daily, to achieve 2-3 bowel movements per day #Acute acalculous cholecystitis Abdominal ultrasound done 08/24 showed findings consistent with acute acalculous cholecystitis, primary hepatocellular disease, significant splenomegaly T. bili 6.5, AST 121, ALT 116, alk phos 171 General Surgery consulted, does not think patient is surgical candidate at this time as elevated bilirubin likely secondary to underlying liver disease Plan - HIDA scan today Health Maintenance: Code status: Full DVT prophylaxis: SCD Diet: low sodium diet today Disposition: Tele Case discussed with my attending Dr. Lay, and senior resident, Dr. Debo Guzmán MD PGY-1
[2025-08-26 12:00] VITALS: BP 123/78; PULSE 82; PULSE 94; RESP 18; TEMP 36.2; O2SAT 96
[2025-08-26 12:42] LABS: Slide Review Platelets confirmed
--- NOTE | 2025-08-26 19:45 | PC.NURSE ---
During initial shift assessment, patient was not connected to sandostatin drip, however, it was running.
[2025-08-26] MEDS: ONDANSETRON INJ 2 MG/ML INJ 2 ML 4 MG IVP (19:54)
[2025-08-26] MEDS: ACETAMINOPHEN 325 MG TABLET 650 MG PO (19:55)
[2025-08-26 20:00] VITALS: BP 111/85; PULSE 103; PULSE 105; RESP 21; TEMP 36.9; O2SAT 95
--- NOTE | 2025-08-26 21:32 | ESPR_ITS ---
Documentation for date of: 08/26/25 Subjective Subjective Interval history: Patient evaluated more alert and oriented Exam Vital Signs Temp Pulse Resp BP Pulse Ox O2 Del Method O2 Flow Rate 98.4 F 105 H 21 H 111/85 H 95 Room Air 2 08/26/25 20:00 08/26/25 20:00 08/26/25 20:00 08/26/25 20:00 08/26/25 20:00 08/26/25 20:00 08/25/25 00:00 Objective Labs 08/26/25 04:44 08/26/25 04:44 Labs: Laboratory Results - last 24 hr 08/23/25 08/26/25 09:15 04:44 WBC 4.9 RBC 2.64 L Hgb 8.0 L Hct 23.2 L MCV 88 MCH 30.3 MCHC 34.5 RDW Std Deviation 80.2 H Plt Count 33 L Neut % (Auto) 75 Lymph % (Auto) 12 [place] % (Auto) 7 Eos % (Auto) 6 Baso % (Auto) 1 Neut # (Auto) 3.7 Lymph # (Auto) 0.6 L [place] # (Auto) 0.3 Eos # (Auto) 0.3 Baso # (Auto) 0.0 Immature Gran # (Auto) 0.02 H Absolute Nucleated RBC 0.02 H Immature Gran % 0 Nucleated RBC % 0 Sodium 136 Potassium 3.6 Chloride 100 Carbon Dioxide 25.8 Anion Gap 10 BUN 6 L Creatinine 0.7 Estim Creat Clear Calc 132.2 eGFR > 60 BUN/Creatinine Ratio 9 L Glucose 105 Calculated Osmolality 269 L Calcium 8.2 L Corrected Calcium 8.6 Magnesium 1.3 L Total Bilirubin 7.0 H D AST 93 H ALT 12 Alkaline Phosphatase 163 H Total Protein 7.0 Albumin 3.5 Globulin 3.5 Albumin/Globulin Ratio 1.0 L Misc Test Result Platelets confirmed Crossmatch See Detail Impressions Impression: 1+ esophageal varices Hypertensive portal gastropathy with diffuse gastritis Continue current management Assessment & Plan A&P Narrative # Hematemesis in setting of cirrhotic liver disease due to alcohol Plan Serial CBC IV Protonix IV octreotide at 50 mcg/h Consent obtained for fiberoptic esophagogastroduodenoscopy with possible therapeutic intervention under intravenous moderate sedation Will follow the patient Thank you for the opportunity to participate in the care of this patient Time Spent With Patient Time: Total time spent is greater than 50% in coordination of care (as documented) at patient's floor/unit and/or counseling patient:
[2025-08-26] MEDS: LACTULOSE SYRUP 20 GM/30 ML UDC 30 GM PO (21:52)
[2025-08-27] VITALS (9 sets, daily range): BP systolic 95–118; BP diastolic 67–81; PULSE 71–108; RESP 17–20; TEMP 36.6–37.1; O2SAT 93–97; BMI 29.2
[2025-08-27] MEDS: LACTULOSE SYRUP 20 GM/30 ML UDC 30 GM PO ×3 (05:33→21:15)
[2025-08-27 05:45] LABS: Basophils # (Auto) 0.0 Thou/mm3 (0.0-0.2); Basophils % (Auto) 1 % (0-2.5); Eosinophils # (Auto) 0.3 Thou/mm3 (0.0-0.5); Eosinophils % (Auto) 5 % (0-10); Hematocrit 23.8 % (41.0-53.0); Immature Granulocytes Auto 0.03 Thou/mm3 (0.00-0.00); Lymphocytes # (Auto) 0.6 Thou/mm3 (1.0-4.8); Lymphocytes % (Auto) 12 % (10-50); Mean Corpuscular HGB Conc 33.6 g/dl (31.0-37.0); Mean Corpuscular Hemoglobin 30.1 pg (25.0-35.0); Mean Corpuscular Volume 90 fL (80-100); Monocytes # (Auto) 0.4 Thou/mm3 (0.0-0.8); Monocytes % (Auto) 8 % (0-12); Neutrophils # (Auto) 4.0 Thou/mm3 (1.8-7.7); Neutrophils % (Auto) 74 % (37-80); Nucleated Red Blood Cell # 0.00 Thou/mm3 (0.00-0.00); Nucleated Red Blood Cell % 0 /100 WBC (0); RDW Standard Deviation 84.9 fL (35.1-43.9); Red Blood Count 2.66 Miln/mm3 (4.50-5.90); White Blood Count 5.4 Thou/mm3 (3.8-10.6)
[2025-08-27 05:48] LABS: Hemoglobin 8.0 g/dL (13.5-16.0); Platelet Count 30 Thou/mm3 (140-440)
[2025-08-27] MEDS: OCTREOTIDE ACET INJ 1,000 MCG in SODIUM CHLORIDE 0.9% 100 ML 5.1 MCG IV ×2 (05:59→17:05)
[2025-08-27 06:16] LABS: Alanine Aminotransferase 14 U/L (10-49); Albumin, Serum 3.5 gm/dL (3.5-5.0); Albumin/Globulin Ratio 0.9 (1.2-2.2); Alkaline Phosphatase 162 U/L (46-116); Anion Gap 13 (7-16); Aspartate Amino Transferase 86 U/L (0-34); BUN/Creatinine Ratio 10 Ratio (12-20); Bilirubin,Total 6.2 mg/dL (0.3-1.2); Blood Urea Nitrogen 8 mg/dL (9-23); Calcium 8.4 mg/dL (8.3-10.6); Calcium (Corrected) 8.8 mg/dL (8.5-10.1); Carbon Dioxide 23.4 mMol/L (20.0-31.0); Chloride 100 mMol/L (98-107); Creatinine (Component) 0.8 mg/dL (0.6-1.3); Estimated Creatinine Clearance 115.6 mL/min (>60); Globulin 3.7 gm/dL (2.3-3.5); Glucose 102 mg/dL (74-106); Osmolality,Calculated 270 (275-295); Potassium 3.6 mMol/L (3.4-5.1); Sodium 136 mMol/L (136-145); Total Protein 7.2 gm/dL (5.7-8.2); eGFR > 60 See Note
[2025-08-27 07:07] LABS: Magnesium 1.6 mg/dL (1.6-2.6)
[2025-08-27] MEDS: THIAMINE 100 MG TABLET PO (08:05)
[2025-08-27] MEDS: FOLIC ACID 1 MG TABLET PO (08:05)
[2025-08-27] MEDS: Magnesium Sulfate 4 GM Ivpb 4 GM/50 ML BAG IV (08:05)
[2025-08-27 09:13] LABS: Slide Review Platelets confirmed
--- NOTE | 2025-08-27 15:25 | ESPR_ITS ---
<Statement entered by Elmira Lay MD - 08/31/25 08:36> I reviewed above note and agree with findings and plans. I have also personally examined the patient with medicine team and went over assessment and plan with medical team including internal specialist and resident physician. <Statement entered by Dwight Edmondson MD - 08/27/25 15:59> Patient seen and assessed in hospital bed denies having any concerning symptoms at this time. Patient continues to be on octreotide and Protonix for upper GI bleed. Patient's HIDA scan shows cystic duct obstruction; however, general surgery does not believe patient is a good candidate for surgery at this time secondary to his end-stage liver disease and high risk for intraoperative mortality. IR contacted regarding possible percutaneous cholecystostomy tube; however, similarly patient is high risk and is not a candidate as per IR recommendations. Contacted surgery regarding the following and recommendation is not to proceed with any surgical intervention if the patient is asymptomatic. Patient is asymptomatic and denies having any right upper quadrant tenderness at this time. Will continue monitor and await for completion of octreotide drip to discharge when stable. I have personally seen and examined the patient. I agree with the resident's assessment and plan as documented below. Dwight Edmondson DO PGY-2 Internal Medicine - [facility] Documentation for date of: 08/27/25 Subjective Subjective Interval history: Patient was seen and assessed at bedside and denies any concerning symptoms at this time. He remains on octreotide and Protonix for management of upper GI bleed. HIDA scan demonstrated cystic duct obstruction; however, General Surgery determined the patient is not a suitable surgical candidate due to end-stage liver disease and high intraoperative mortality risk. Interventional Radiology was also consulted for possible percutaneous cholecystostomy, but the patient was deemed high risk and not a candidate per IR recommendations. Surgery was re- contacted and advised against any intervention as long as the patient remains asymptomatic. Currently, the patient denies right upper quadrant pain or tenderness. Plan to continue monitoring and complete octreotide infusion, with discharge planned once clinically stable. Exam Vital Signs Temp Pulse Resp BP Pulse Ox O2 Del Method O2 Flow Rate 97.9 F 108 H 20 112/71 97 Room Air 2 08/27/25 11:49 08/27/25 12:00 08/27/25 11:49 08/27/25 11:49 08/27/25 11:49 08/27/25 11:49 08/25/25 00:00 Narrative Exam GENERAL: NAD, AAOx3, in no acute distress, malodorous HEENT: Moist mucosa. Eyes open, symmetrical, & clear CARDIO: Regular rhythm Noted. No Murmurs. PULM: No noted coughing/dyspnea CTA B/L, no R/W/R GI: Abdomen firm but soft, mildly distended, no tenderness to palpation SKIN/MSK/EXT: Chronic lesions on bilat shins, no pain on palpation. Pedal pulses present B/L NEURO: AAOx3, no focal neuro deficits, able to move all 4 extremities Objective Labs 08/27/25 05:28 08/27/25 05:28 Labs: Laboratory Results - last 24 hr 08/27/25 05:28 WBC 5.4 RBC 2.66 L Hgb 8.0 L Hct 23.8 L MCV 90 MCH 30.1 MCHC 33.6 RDW Std Deviation 84.9 H Plt Count 30 L Neut % (Auto) 74 Lymph % (Auto) 12 [place] % (Auto) 8 Eos % (Auto) 5 Baso % (Auto) 1 Neut # (Auto) 4.0 Lymph # (Auto) 0.6 L [place] # (Auto) 0.4 Eos # (Auto) 0.3 Baso # (Auto) 0.0 Immature Gran # (Auto) 0.03 H Absolute Nucleated RBC 0.00 Immature Gran % 1 H Nucleated RBC % 0 Sodium 136 Potassium 3.6 Chloride 100 Carbon Dioxide 23.4 Anion Gap 13 BUN 8 L Creatinine 0.8 Estim Creat Clear Calc 115.6 eGFR > 60 BUN/Creatinine Ratio 10 L Glucose 102 Calculated Osmolality 270 L Calcium 8.4 Corrected Calcium 8.8 Magnesium 1.6 Total Bilirubin 6.2 H D AST 86 H ALT 14 Alkaline Phosphatase 162 H Total Protein 7.2 Albumin 3.5 Globulin 3.7 H Albumin/Globulin Ratio 0.9 L Misc Test Result Platelets confirmed Quality Measures Quality Measures none Assessment & Plan Assessment Current Active Medications: Generic Name Dose Route Start Last Admin Trade Name Freq PRN Reason Stop Dose Admin Acetaminophen 650 mg 08/23/25 21:15 Acetaminophen 325 Mg Tablet PO 09/22/25 21:14 Q6H PRN Fever >100.4 Acetaminophen 650 mg 08/23/25 21:15 08/26/25 19:55 Acetaminophen 325 Mg Tablet PO 09/22/25 21:14 650 mg Q6H PRN Administration PAIN SCALE 1-3 (mild Folic Acid 1 mg 08/24/25 09:00 08/27/25 08:05 Folic Acid 1 Mg Tablet PO 09/23/25 08:59 1 mg QDAY BRANDI Administration Octreotide Acetate 1,000 mcg/ 102 mls @ 5.1 mls/hr 08/24/25 09:30 08/27/25 05:59 Sodium Chloride IV 08/28/25 13:29 50 mcg/hr .Q20H BRANDI 5.1 mls/hr Protocol Administration 50 MCG/HR Lactulose 30 gm 08/26/25 14:00 08/27/25 13:50 Lactulose Syrup 20 Gm/30 Ml Udc PO 09/25/25 13:59 30 gm TID BRANDI Administration Protocol Lorazepam 0.5 mg 08/23/25 23:17 08/26/25 00:14 Lorazepam 0.5 Mg Tablet PO 08/28/25 23:16 0.5 mg Q4HR PRN Administration ciwa 2-6 Lorazepam 1 mg 08/23/25 23:17 08/26/25 19:55 Lorazepam 0.5 Mg Tablet PO 08/28/25 23:16 1 mg Q4HR PRN Administration ciwa 7-11 Lorazepam 2 mg 08/23/25 23:17 08/25/25 19:46 Lorazepam 0.5 Mg Tablet PO 08/28/25 23:16 2 mg Q4HR PRN Administration CIWA 12-15 Ondansetron HCl 4 mg 08/23/25 21:15 08/26/25 19:54 Ondansetron Inj 2 Mg/Ml Inj 2 Ml IVP 09/22/25 21:14 4 mg Q6H PRN Administration NAUSEA OR VOMITING Protocol Pantoprazole Sodium 40 mg 08/24/25 09:00 08/27/25 08:05 Pantoprazole Inj 40 Mg Vial IVP 09/23/25 08:59 40 mg BID BRANDI Administration Sennosides 1 tab 08/23/25 21:15 Senna Tablet PO 09/22/25 21:14 QDAY PRN constipation Protocol Thiamine HCl 100 mg 08/24/25 09:00 08/27/25 08:05 Thiamine 100 Mg Tablet PO 09/23/25 08:59 100 mg QDAY BRANDI Administration Plan 44-year-old male with past medical history of chronic alcohol use, cirrhosis complicated by esophageal varices, homelessness presented to the ED with complaints of bloody vomiting x1 day. He was admitted for upper GI Bleed w/u. #Acute blood loss anemia #Upper GI bleed #Grade 1 esophageal varices #Erythematous mucosa in stomach History of hematemesis, alcohol use, alcoholic cirrhosis. Hemoglobin 8.4, hematocrit 23.8, platelets 57. EGD 08/24 showed grade 1 esophageal varices, erythematous mucosa in stomach As patient continues to drink prognosis is poor Plan: ?GI consulted, appreciate recommendations ?Protonix 40 mg twice daily ?Continue octreotide for at least 5 days (until 08/29) ?2 g sodium diet today #Decompensated liver cirrhosis 2/ #Thrombocytopenia #Alcohol use disorder 17?points MELD Score (2016)* 6.0% Estimated 3-Month Mortality 8?points Child Class B Indication for transplant evaluation Abdominal surgery juliana-operative mortality: 30% Last drink 08/23 at 3 PM; patient not candidate for transplant at this time, needs to be 6 months sober CIWA ranged from 0-10 today Plan ?Continue CIWA protocol ?Thiamine 100 mg daily ?Folic acid 1 mg daily -Ceftriaxone 1 g for SBP prophylaxis -Lactulose 30 mg 3 times daily, to achieve 2-3 bowel movements per day #Acute acalculous cholecystitis, asymptomatic Abdominal ultrasound done 08/24 showed findings consistent with acute acalculous cholecystitis, primary hepatocellular disease, significant splenomegaly T. bili 6.5, AST 121, ALT 116, alk phos 171 HIDA scan 08/26 shows cystic duct obstruction Plan -General Surgery determined the patient is not a suitable surgical candidate due to end-stage liver disease and high intraoperative mortality risk. - Interventional Radiology was also consulted for possible percutaneous cholecystostomy, but the patient was deemed high risk and not a candidate per IR recommendations. - Surgery was re-contacted and advised against any intervention as long as the patient remains asymptomatic. Health Maintenance: Code status: Full DVT prophylaxis: SCD Diet: low sodium diet Disposition: Tele Case discussed with my attending Dr. Lay, and senior resident, Dr. Debo Guzmán MD PGY-1
--- NOTE | 2025-08-27 20:12 | ESPR_ITS ---
Documentation for date of: 08/27/25 Subjective Subjective Interval history: Patient evaluated on octreotide infusion Surgery that he is a high risk for any surgical intervention and patient has really no right upper quadrant pain at this time I agree with jada interventional radiology andth Exam Vital Signs Temp Pulse Resp BP Pulse Ox O2 Del Method O2 Flow Rate 97.9 F 91 20 109/71 97 Room Air 2 08/27/25 15:35 08/27/25 16:00 08/27/25 15:35 08/27/25 15:35 08/27/25 15:35 08/27/25 15:35 08/25/25 00:00 Objective Labs 08/27/25 05:28 08/27/25 05:28 Labs: Laboratory Results - last 24 hr 08/27/25 05:28 WBC 5.4 RBC 2.66 L Hgb 8.0 L Hct 23.8 L MCV 90 MCH 30.1 MCHC 33.6 RDW Std Deviation 84.9 H Plt Count 30 L Neut % (Auto) 74 Lymph % (Auto) 12 [place] % (Auto) 8 Eos % (Auto) 5 Baso % (Auto) 1 Neut # (Auto) 4.0 Lymph # (Auto) 0.6 L [place] # (Auto) 0.4 Eos # (Auto) 0.3 Baso # (Auto) 0.0 Immature Gran # (Auto) 0.03 H Absolute Nucleated RBC 0.00 Immature Gran % 1 H Nucleated RBC % 0 Sodium 136 Potassium 3.6 Chloride 100 Carbon Dioxide 23.4 Anion Gap 13 BUN 8 L Creatinine 0.8 Estim Creat Clear Calc 115.6 eGFR > 60 BUN/Creatinine Ratio 10 L Glucose 102 Calculated Osmolality 270 L Calcium 8.4 Corrected Calcium 8.8 Magnesium 1.6 Total Bilirubin 6.2 H D AST 86 H ALT 14 Alkaline Phosphatase 162 H Total Protein 7.2 Albumin 3.5 Globulin 3.7 H Albumin/Globulin Ratio 0.9 L Misc Test Result Platelets confirmed Impressions Impression: Upper GI bleed secondary to hypertensive portal gastropathy and esophageal varices Continue octreotide and complete 5 days No right upper quadrant pain I agree with no surgical intervention at this time Assessment & Plan A&P Narrative # Hematemesis in setting of cirrhotic liver disease due to alcohol Plan Serial CBC IV Protonix IV octreotide at 50 mcg/h Consent obtained for fiberoptic esophagogastroduodenoscopy with possible therapeutic intervention under intravenous moderate sedation Will follow the patient Thank you for the opportunity to participate in the care of this patient Time Spent With Patient Time: Total time spent is greater than 50% in coordination of care (as documented) at patient's floor/unit and/or counseling patient:
[2025-08-28] VITALS: BP 115/79; PULSE 76; PULSE 95; RESP 18; TEMP 36.6; O2SAT 96
[2025-08-28 03:13] LABS: Hematocrit 24.2 % (41.0-53.0)
[2025-08-28 03:32] LABS: Hemoglobin 8.1 g/dL (13.5-16.0)
[2025-08-28 04:00] VITALS: BP 115/80; PULSE 71; PULSE 85; RESP 13; TEMP 37; O2SAT 99
[2025-08-28] MEDS: LACTULOSE SYRUP 20 GM/30 ML UDC 30 GM PO (05:21)
[2025-08-28 06:15] LABS: Basophils # (Auto) 0.0 Thou/mm3 (0.0-0.2); Basophils % (Auto) 1 % (0-2.5); Eosinophils # (Auto) 0.4 Thou/mm3 (0.0-0.5); Eosinophils % (Auto) 7 % (0-10); Hematocrit 24.1 % (41.0-53.0); Immature Granulocytes Auto 0.01 Thou/mm3 (0.00-0.00); Lymphocytes # (Auto) 0.7 Thou/mm3 (1.0-4.8); Lymphocytes % (Auto) 13 % (10-50); Mean Corpuscular HGB Conc 34.0 g/dl (31.0-37.0); Mean Corpuscular Hemoglobin 31.1 pg (25.0-35.0); Mean Corpuscular Volume 91 fL (80-100); Monocytes # (Auto) 0.4 Thou/mm3 (0.0-0.8); Monocytes % (Auto) 8 % (0-12); Neutrophils # (Auto) 3.9 Thou/mm3 (1.8-7.7); Neutrophils % (Auto) 72 % (37-80); Nucleated Red Blood Cell # 0.00 Thou/mm3 (0.00-0.00); Nucleated Red Blood Cell % 0 /100 WBC (0); RDW Standard Deviation 84.0 fL (35.1-43.9); Red Blood Count 2.64 Miln/mm3 (4.50-5.90); White Blood Count 5.4 Thou/mm3 (3.8-10.6)
[2025-08-28 06:16] LABS: Hemoglobin 8.2 g/dL (13.5-16.0); Platelet Count 36 Thou/mm3 (140-440)
[2025-08-28 06:36] LABS: Alanine Aminotransferase 17 U/L (10-49); Albumin, Serum 3.6 gm/dL (3.5-5.0); Albumin/Globulin Ratio 1.0 (1.2-2.2); Alkaline Phosphatase 156 U/L (46-116); Anion Gap 13 (7-16); Aspartate Amino Transferase 91 U/L (0-34); BUN/Creatinine Ratio 10 Ratio (12-20); Bilirubin,Total 5.7 mg/dL (0.3-1.2); Blood Urea Nitrogen 7 mg/dL (9-23); Calcium 8.2 mg/dL (8.3-10.6); Calcium (Corrected) 8.5 mg/dL (8.5-10.1); Carbon Dioxide 21.3 mMol/L (20.0-31.0); Chloride 101 mMol/L (98-107); Creatinine (Component) 0.7 mg/dL (0.6-1.3); Estimated Creatinine Clearance 129.5 mL/min (>60); Globulin 3.6 gm/dL (2.3-3.5); Glucose 98 mg/dL (74-106); Magnesium 1.4 mg/dL (1.6-2.6); Osmolality,Calculated 268 (275-295); Phosphorous 4.0 mg/dL (2.4-5.1); Potassium 4.0 mMol/L (3.4-5.1); Sodium 135 mMol/L (136-145); Total Protein 7.2 gm/dL (5.7-8.2); eGFR > 60 See Note
[2025-08-28 07:42] VITALS: BP 134/72; PULSE 96; RESP 17; TEMP 36.3; O2SAT 99
[2025-08-28 08:00] VITALS: PULSE 96
[2025-08-28 08:54] LABS: Slide Review Platelets confirmed
--- NOTE | 2025-08-28 09:07 | PC.SS ---
Addendum entered by Wendy Vanegas 08/28/25 15:33: SS also provided pt with bus pass voucher. Original Note: Follow up note: Pt will return to [facility]. Meeta LAUGHLIN is aware pt will require sack lunch to take with him at d/c. Pt states he has appropriate clothes (shirt, pants,and shoes) but is requiring underwear. Bedside nurse is aware pt will require transportation upon dc. SS has provided pt with underwear and a shirt and community resources.
[2025-08-28] MEDS: THIAMINE 100 MG TABLET PO (09:24)
[2025-08-28] MEDS: FOLIC ACID 1 MG TABLET PO (09:24)
[2025-08-28 12:00] VITALS: BP 118/80; PULSE 86; PULSE 92; RESP 17; TEMP 36.3; O2SAT 99
--- NOTE | 2025-08-28 13:17 | ESDS_ITS ---
<Statement entered by Elmira Lay MD - 08/31/25 15:51> I reviewed above note and agree with findings and plans. I have also personally examined the patient with medicine team and went over assessment and plan with medical team including validation intern and resident physician. Planned Discharge Date 08/28/25 DS: Providers Provider Date of admission: 08/23/25 21:15 Primary care physician: Physician No Primary/Family Admitting Provider: Robert Gould MD Attending Provider on Admission: Elmira Lay MD Consults: 08/23/25 20:44 Consult to Gastroenterology Stat Comment: Consulting Provider: Supriya Perla 08/24/25 00:24 [facility] Referral - Safety Routine Comment: Positive screening for safety needs. 08/25/25 09:18 Consult to General Surgery Routine Comment: Consulting Provider: Cory Bailon Attending Provider on DC: Dwight Edmondson MD Discharging Provider: Dwight Edmondson MD DS: Diagnosis Problem List Completed Was Problem List Reviewed/Reconciled?: Yes Hospital Course Hospital Course Hospital course: 44-year-old male with past medical history of chronic alcohol use disorder, cirrhosis secondary to alcohol use disorder, decompensated liver disease with esophageal varices, houseless presented to the ED on 08/23 with multiple episodes of bloody vomiting. In the ED, patient's blood pressure and heart rate were stable, respiratory rate within normal limits, afebrile satting 97 on room air. Pertinent lab findings included hemoglobin of 8.4, hematocrit 23.8, platelets of 57. Urine tox is positive for benzodiazepines. Patient was started on a loading dose of Protonix, octreotide drip and gastroenterology was consulted. On 08/24 patient had EGD completed with gastroenterology which showed grade 1 varices in the lower third of the esophagus with diffuse severely erythematous mucosa with stigmata of recent bleeding. Patient's diet slowly advanced and octreotide drip was given continued for 5 days. During admission, patient's abdominal ultrasound showed gallbladder wall thickening, as a result a HIDA scan was ordered which showed acalculous cystic duct obstruction for which general surgery and IR recommended against any procedure due to the high risk of mortality. Patient remains asymptomatic and denies having any abdominal or right upper quadrant tenderness on palpation; furthermore, patient's liver functions are downtrending and the patient did not have any fever during hospital stay. Patient understands poor prognosis and end-stage liver disease and will be discharged with the following strict instructions. Please take Coreg 3.125 mg by mouth twice a day with meals to prevent and lower risk of esophageal varices, bloody vomiting from occurring Continue to take folic acid and thiamine vitamins Please continue to use lactulose 10 g by mouth 3 times a day and achieve 2-3 bowel movements a day if you are having more bowel movements you can lower the dose to once or twice a day. Continue taking Protonix 40 mg by mouth daily Please follow-up with your PCP within 1 week of discharge or follow-up at the [facility] [address] [place] [address] Ask your PCP to refer to market news reporter as you have end-stage liver cirrhosis and need close following Stop drinking alcohol completely as this will only worsen your liver cirrhosis If your symptoms worsen or if you develop new chest pain, shortness of breath, severe abdominal pain or bleeding - please come back to the ED immediately Hospital Diagnosis: #Acute blood loss anemia #Upper GI bleed #Grade 1 esophageal varices #Erythematous mucosa in stomach #Decompensated liver cirrhosis 2/2 #Thrombocytopenia #Acalculous cystic duct obstruction #Alcohol use disorder Dwight Edmondson DO PGY-2 Internal Medicine - GME Time Spent with Patient Time attestation: Total time spent providing and/or coordinating discharge services: 45 minutes Time spent: Greater than 30 minutes Exam Vital Signs Temp Pulse Resp BP Pulse Ox O2 Del Method O2 Flow Rate 97.3 F 86 17 118/80 99 Room Air 2 08/28/25 12:00 08/28/25 12:00 08/28/25 12:00 08/28/25 12:00 08/28/25 12:00 08/28/25 12:00 08/25/25 00:00 Narrative Exam GENERAL: NAD, AAOx3, in no acute distress, malodorous HEENT: Moist mucosa. Eyes open, symmetrical, & clear CARDIO: Regular rhythm Noted. No Murmurs. PULM: No noted coughing/dyspnea CTA B/L, no R/W/R GI: Abdomen firm but soft, mildly distended, no tenderness to palpation SKIN/MSK/EXT: Chronic lesions on bilat shins, no pain on palpation. Pedal pulses present B/L NEURO: AAOx3, no focal neuro deficits, able to move all 4 extremities Discharge Plan Plan Patient Disposition: HOME (Self Care) Care Plan Goals: Please take Coreg 3.125 mg by mouth twice a day with meals to prevent and lower risk of esophageal varices, bloody vomiting from occurring Continue to take folic acid and thiamine vitamins Please continue to use lactulose 10 g by mouth 3 times a day and achieve 2-3 bowel movements a day if you are having more bowel movements you can lower the dose to once or twice a day. Continue taking Protonix 40 mg by mouth daily Please follow-up with your PCP within 1 week of discharge or follow-up at the [facility] [address] [place] [address] Ask your PCP to refer to market news reporter as you have end-stage liver cirrhosis and need close following Stop drinking alcohol completely as this will only worsen your liver cirrhosis If your symptoms worsen or if you develop new chest pain, shortness of breath, severe abdominal pain or bleeding - please come back to the ED immediately Jessie Coreg 3.125 mg por v?a oral dos veces al d?a con las comidas para prevenir y reducir el riesgo de v?rices esof?gicas y v?mitos con edgard. Contin?e tomando las vitaminas ?cido f?isabela y tiamina.? Contin?e usando lactulosa 10 g por v?a oral 3 veces al d?a y procure tener de 2 a 3 evacuaciones intestinales al d?a; si tiene m?s evacuaciones intestinales, puede reducir la dosis a monica o dos veces al d?a.? Contin?e tomando Protonix 40 mg por v?a oral todos los d?as.? William un seguimiento con wyatt m?dico de cabecera en el plazo de 1 semana despu?s del patricia hospitalaria o en el [facility], [address], [address] [place] [address], . P?mj a wyatt m?dico de cabecera que lo refiera a un gastroenter?logo, ya que tiene cirrosis hep?angelina en etapa terminal y necesita un seguimiento exhaustivo.? Deje de beber alcohol por completo, ya que esto solo empeorar? wyatt cirrosis hep?angelina. Si fuentes s?ntomas empeoran o si desarrolla un nuevo dolor en el pecho, dificultad para respirar, dolor abdominal intenso o sangrado, regrese a la kati de emergencias de inmediato Prescriptions/Referrals Prescriptions/Med Rec: New folic acid 1 mg Tablet 1 mg PO QDAY 30 Days Qty: 30 0RF carvedilol [Coreg] 3.125 mg tablet 3.125 mg PO BID 30 Days Qty: 60 0RF Rx Instructions: must administer with a meal/food Continued pantoprazole 40 mg tablet,delayed release (DR/EC) 40 mg PO QDAY Qty: 90 0RF lactulose 10 gram/15 mL solution 10 g PO TID Patient Comments: TAKE 15 ML NEEDED ORALLY 3 TIMES A DAY thiamine mononitrate (vit B1) 100 mg Tablet 100 mg PO QDAY Qty: 30 0RF Discontinued propranolol 10 mg tablet 20 mg PO Q12H Patient Comments: TOME 1 TABLETA POR V A ORAL UNRULY VECES AL D A FOR 90 DAYS Referrals: No Primary/Family,Physician [Primary Care Provider] Patient/Caregiver Discharge Instructions Education Materials: Treating Cirrhosis, Understanding Cirrhosis Print Language: St Helenian Stand Alone Forms: Kallie Award Info., Patient Portal Info Letter Discharge Order Discharge Orders: Discharge (Routine); Ordered 08/28/25 Ordered By: Dwight Edmondson Quality Discharge Quality Measures VTE prophylaxis
== END 2025-08-28 13:00 | disposition home or self-care (01) | DRG 280 ==
LOC: SERX 20:55 → SERHOLD 22:17 → S3NX 08-24 00:09
PROVIDERS: Specialist; Student in an Organized Health Care Education/Training Program; Admitting Provider Internal Medicine; Emergency Provider Emergency Medicine; Visit Provider Internal Medicine
PROC: 0DJ08ZZ Inspection of Upper Intestinal Tract, Via Natural or Artificial Opening Endoscopic (ICD-10-PCS; CPT 43239; principal; 2025-08-24 15:00)
DX: K70.31 Alcoholic cirrhosis of liver with ascites (principal); Z59.00 Homelessness unspecified; D64.9 Anemia, unspecified; D69.6 Thrombocytopenia, unspecified; I85.11 Secondary esophageal varices with bleeding; F10.10 Alcohol abuse, uncomplicated; K29.71 Gastritis, unspecified, with bleeding; D62 Acute posthemorrhagic anemia; K20.91 Esophagitis, unspecified with bleeding; F41.9 Anxiety disorder, unspecified; K81.0 Acute cholecystitis; K82.0 Obstruction of gallbladder; K76.6 Portal hypertension; K72.10 Chronic hepatic failure without coma; Z79.899 Other long term (current) drug therapy
CPT/HCPCS: 36415; 71045; 76700; 78227; 80053; 80061; 80307; 82140; 82330; 83036; 83735; 84100; 85014; 85018; 85025; 85610; 86850; 86900; 86901; 86921; 86922; 87081; 96365; 96366; 96375; 96376; 99284; A4649; A9537; J0696; J1200; J2250; J2354; J2405; J2470; J3010; J3411; J3475; J3490; J7030; J7050; J7070; A9270

== ENCOUNTER 2025-09-13 13:25 | Emergency (ER) | payer MEDICAID, SELFPAY ==
--- NOTE | 2025-09-13 13:50 | PD.EDADULT ---
ED General RME/HPI General Chief complaint: Chest Pain Stated complaint: HUYPOTENSION Time Seen by Provider: 09/13/25 13:49 Arrival date/time: 09/13/25 13:25 CC: Headache abdominal pain chest pain HPI unknown onset is patient is highly intoxicated presents to the ER via EMS with hypotension after a good citizen called and sitting up in front of the store and stressed more. Patient is awake oriented to self. No other complaints reviewed the medical record show has been here many times before for the same intoxication issue. Related Data Home Medications ?Medication ?Instructions ?Recorded ?Confirmed lactulose 10 gram/15 mL oral 10 g PO TID liver cirrhosis 08/24/25 08/24/25 solution Previous Rx's ?Medication ?Instructions ?Recorded thiamine mononitrate (vit B1) 100 100 mg PO QDAY #30 tabs 04/02/25 mg tablet pantoprazole 40 mg tablet,delayed 40 mg PO QDAY #90 tabs 06/28/25 release carvedilol 3.125 mg tablet (Coreg) 3.125 mg PO BID 1 month #60 tabs 08/28/25 folic acid 1 mg tablet 1 mg PO QDAY 1 month #30 tabs 08/28/25 Allergies Allergy/AdvReac Type Severity Reaction Status Date / Time No Known Allergies Allergy Verified 08/16/25 18:33 Review of Systems Review of Systems Narrative Review of Systems: GEN: No fever, no chills, no weight loss EYES: No discharge, no visual changes, no pain HEENT: No ear pain, no congestion, no sore throat PULM: No shortness of breath, no cough, no congestion CV: + chest pain, no dyspnea on exertion, no palpitations GI: No nausea, no vomiting, no diarrhea, + pain, no constipation : No frequency, no urgency, no dysuria MUSC/SKEL: No joint pain, no back pain SKIN: No rash PSYCH: No hallucinations, no depression HEME/LYMPH: No easy bleeding or bruising tendencies NEURO: No weakness, + headache Past Medical History Past Medical History NEUROLOGIC: Negative Neurological Disorders or Seizures CARDIAC: Positive Myocardial Infarction, Angina and Hypertension; Negative Cardiac Disorders, Cardiac Arrhythmia, Atrial Fibrillation, Heart Murmur, Coronary Artery Disease, Atherosclerotic Heart Disease, Peripheral Vascular Disease, Hypercholesterolemia, Aneurysm, Congestive Heart Failure, Congenital Heart Disease, Rheumatic Fever, Cardiomyopathy, Edema, Pericarditis, Cellulitis, Deep Vein Thrombosis, Hypotension or Varicose Veins RESPIRATORY: Negative Chronic Obstructive Pulmonary Disease (COPD) or Asthma GASTROINTESTINAL: Positive Hepatitis, Gastrointestinal Bleed, Esophageal Varices and Gastroesophageal Reflux Disease; Negative Gastrointestinal Disorders, Cirrhosis, Pancreatitis, Celiac Disease, Gall Bladder Disease, Bettencourt's Esophagus, Colitis, Ulcerative Colitis, Diverticulitis, Diverticulosis, Ulcer, Irritable Bowel, Crohn's Disease, Obstructive Bowel, Hiatal Hernia, Hemorrhoids or Obesity GENITOURINARY: Negative Genitourinary Disorders or Renal Disease MUSCULOSKELETAL: Negative Musculoskeletal Disorders ENT: Negative Cataracts, Glaucoma, Blind, Retinal Detachment, Macular Degeneration, Ear Infection, Deafness or Eye Prosthesis ENDOCRINE: Negative Endocrine Disorders, Diabetes Mellitus Type 1, Diabetes Mellitus Type 2, Hypoglycemia, Toledo's Syndrome, Pima's Disease, Hyperthyroidism, Hypothyroidism, Parathyroid Disease, Pituitary Disease, Systemic Lupus Erythematosus, Syndrome of Inappropriate Antidiuretic Hormone (SIADH), Adrenal Disease or Graves' Disease HEMATOLOGIC: Positive Anemia; Negative Blood Disorders or Sickle Cell Disease PSYCHO/SOCIAL: Positive Recreational Drug Use, Depression and Anxiety OTHER HISTORY: Positive Hospitalization, Falls, Blood Transfusions and Chicken Pox; Negative Autoimmune Disease, Down Syndrome, Developmental Delay, Blood Transfusion Reaction, Anesthesia Reactions, Organ Transplant, MRSA, VRSA, Clostridium Difficile or Cancer Family History FAMILY HISTORY: Negative Family Psychiatric Problems, Family Respiratory Disorders, Family Cardiac Disorders, Family Gastrointestinal Problems, Family Cancer, Family Surgery or Family Anesthesia Reaction Surgical History SURGICAL: Negative Cardiac Surgery, Pacemaker, Endocrine Surgery, Ear Surgery, Abdominal Surgery, Nephrectomy, Joint Replacement, Neurologic Surgery, Vasectomy or Organ Transplant Social History SMOKING STATUS: Never smoker SECOND HAND EXPOSURE: No SUBSTANCE USE: methamphetamine ED Exam Narrative Physical exam: [General: Disheveled, ill kempt, not in any acute distress Head normocephalic HEENT: Eyes pupils are PERRLA EOMs are intact slurred speech mouth pink dry membranes uvula is midline swallow symmetrical phonation is normal all the subsystems of HEENT are within acceptable limits Neck is supple nontender, no edema JVD Chest equal chest rise nontender to palpation Respiratory: Clear to auscultation no wheezes crackles or rubs CV: Rate rhythm is regular no murmurs rubs or clicks Abdomen is soft nontender no masses positive bowel sounds all 4 quadrants Back: No CVA tenderness no spinous process tenderness from cervical spine thoracic and lumbar spine Skin: Intact no petechiae rash induration ulceration or crepitus Extremities: Moving all extremity against resistance cap refill less than 2 seconds neurosensory intact Neuro: Awake alert oriented x1, self, Glascow coma 15 no focal deficits] Course Course Course Narrative: Patient is awake alert ambulatory verbal Wants to be discharged home I am comfortable with this decision. Quality Measures none Orders Category Date Time Status Saline [Insert IV] NOW Care 09/13/25 13:49 Active CBC Stat Lab 09/13/25 14:04 Completed Comprehensive Metabolic Panel Stat Lab 09/13/25 14:04 Completed Drug Screen,Urine Stat Lab 09/13/25 14:36 Completed Magnesium Stat Lab 09/13/25 14:04 Completed Partial Thromboplastin Time Stat Lab 09/13/25 14:04 Completed Prothrombin Time with INR Stat Lab 09/13/25 14:04 Completed Urinalysis, C/S if Indicated Stat Lab 09/13/25 14:36 Completed Ringers Lactated 1000 ml [Lactated Ringers] 1,000 ml Med 09/13/25 13:50 Discontinued IV 999 mls/hr Ringers Lactated 1000 ml [Lactated Ringers] 1,000 ml Med 09/13/25 13:50 Discontinued IV 999 mls/hr Vital Signs Vital signs: Vital Signs Temperature 98 F 09/13/25 13:57 Pulse Rate 68 09/13/25 13:57 Respiratory Rate 17 09/13/25 13:57 Blood Pressure 94/64 09/13/25 13:57 Pulse Oximetry (%) 99 09/13/25 13:57 Oxygen Delivery Method Nasal Cannula 09/13/25 13:57 Oxygen Flow Rate 2 09/13/25 13:57 Discharge Plan Plan Patient Disposition: HOME (Self Care) Patient condition on transfer: Stable Prescriptions/Referrals Prescriptions/Med Rec: No Action pantoprazole 40 mg tablet,delayed release (DR/EC) 40 mg PO QDAY Qty: 90 0RF lactulose 10 gram/15 mL solution 10 g PO TID Patient Comments: TAKE 15 ML NEEDED ORALLY 3 TIMES A DAY folic acid 1 mg Tablet 1 mg PO QDAY 30 Days Qty: 30 0RF carvedilol [Coreg] 3.125 mg tablet 3.125 mg PO BID 30 Days Qty: 60 0RF Rx Instructions: must administer with a meal/food thiamine mononitrate (vit B1) 100 mg Tablet 100 mg PO QDAY Qty: 30 0RF Referrals: Cezar Adams MD [Primary Care Provider, Family Practice] - In 1 week Problem List Clinical Impression: Alcohol intoxication Patient/Caregiver Discharge Instructions Education Materials: ED Alcohol Intoxication Print Language: Romanian Stand Alone Forms: Kallie Award Info., Patient Portal Info Letter PA/STEAM FITTER SUPERVISOR Supervising Physician PA/STEAM FITTER SUPERVISOR Supervising Physician: Surendra Oliveira ENP [facility] Clinical Information Provided by: patient and EMS Medical Records reviewed [facility] and EMS Meds/Rx considered, not ordered None Labs/Rad/Tests considered, not ordered None Chronic Illness/Social Conditions which may negatively complicate care or outcome(s)-explain: Homeless and ETOH/drugs/substance abuse Labs Labs: interpreted by tx Lab(s) Interpretation(s): EKG performed shows no leukocytosis, chronic stable anemia with thrombocytopenia CMP shows no significant electrolyte imbalances, mag 1.5 T. bili of 2.5 AST of 87 alk phos of 195 Urine is negative UDS is negative Imaging Imaging interpretation: none Medication Administration(s) Medication Administration History Discontinued Medications Lactated Ringer's (Lactated Ringers) 1,000 mls @ 999 mls/hr IV .Q1H1M ONE Stop: 09/13/25 14:50 Last Infusion: 09/13/25 15:34 Dose: Infused Documented By: Admin: 09/13/25 14:04 Dose: 999 mls/hr Documented By: EF Lactated Ringer's (Lactated Ringers) 1,000 mls @ 999 mls/hr IV .Q1H1M ONE Stop: 09/13/25 14:50 Last Infusion: 09/13/25 15:34 Dose: Infused Documented By: Admin: 09/13/25 14:04 Dose: 999 mls/hr Documented By: EF
[2025-09-13 13:54] VITALS: PULSE 77; O2SAT 96
[2025-09-13 13:57] VITALS: BP 94/64; PULSE 68; RESP 17; TEMP 36.6; O2SAT 99
[2025-09-13] MEDS: RINGERS LACTATED 1000 ML 1,000 ML 999 ML IV ×2 (14:04)
[2025-09-13 14:20] LABS: Basophils # (Auto) 0.1 Thou/mm3 (0.0-0.2); Basophils % (Auto) 1 % (0-2.5); Eosinophils # (Auto) 0.3 Thou/mm3 (0.0-0.5); Eosinophils % (Auto) 7 % (0-10); Hematocrit 24.6 % (41.0-53.0); Immature Granulocytes Auto 0.02 Thou/mm3 (0.00-0.00); Lymphocytes # (Auto) 1.1 Thou/mm3 (1.0-4.8); Lymphocytes % (Auto) 23 % (10-50); Mean Corpuscular HGB Conc 32.9 g/dl (31.0-37.0); Mean Corpuscular Hemoglobin 30.7 pg (25.0-35.0); Mean Corpuscular Volume 93 fL (80-100); Monocytes # (Auto) 0.5 Thou/mm3 (0.0-0.8); Monocytes % (Auto) 11 % (0-12); Neutrophils # (Auto) 2.8 Thou/mm3 (1.8-7.7); Neutrophils % (Auto) 58 % (37-80); Nucleated Red Blood Cell # 0.00 Thou/mm3 (0.00-0.00); Nucleated Red Blood Cell % 0 /100 WBC (0); RDW Standard Deviation 78.5 fL (35.1-43.9); Red Blood Count 2.64 Miln/mm3 (4.50-5.90); White Blood Count 4.7 Thou/mm3 (3.8-10.6)
[2025-09-13 14:22] LABS: Hemoglobin 8.1 g/dL (13.5-16.0); Platelet Count 30 Thou/mm3 (140-440)
[2025-09-13 14:26] LABS: INR 1.4 (0.9-1.3); Partial Thromboplastin Time 34.7 Seconds (22.0-36.0); Prothrombin Time 14.7 Seconds (9.0-12.2)
[2025-09-13 14:32] LABS: Alanine Aminotransferase 17 U/L (10-49); Albumin, Serum 3.5 gm/dL (3.5-5.0); Albumin/Globulin Ratio 1.0 (1.2-2.2); Alkaline Phosphatase 195 U/L (46-116); Anion Gap 10 (7-16); Aspartate Amino Transferase 87 U/L (0-34); BUN/Creatinine Ratio 10 Ratio (12-20); Bilirubin,Total 2.5 mg/dL (0.3-1.2); Blood Urea Nitrogen < 5 mg/dL (9-23); Calcium 8.1 mg/dL (8.3-10.6); Calcium (Corrected) 8.5 mg/dL (8.5-10.1); Carbon Dioxide 25.6 mMol/L (20.0-31.0); Chloride 106 mMol/L (98-107); Creatinine (Component) 0.5 mg/dL (0.6-1.3); Globulin 3.5 gm/dL (2.3-3.5); Glucose 99 mg/dL (74-106); Magnesium 1.5 mg/dL (1.6-2.6); Osmolality,Calculated 280 (275-295); Potassium 3.6 mMol/L (3.4-5.1); Sodium 142 mMol/L (136-145); Total Protein 7.0 gm/dL (5.7-8.2); eGFR > 60 See Note
[2025-09-13 14:40] LABS: Collection Type, Urine Clean Catch; RBC,Urine 0 /hpf (0-3); Squamous Epithelial Cell,Urine 0 /hpf (0-5); WBC,Urine 0 /hpf (0-5)
[2025-09-13 14:41] LABS: Slide Review Platelets confirmed
[2025-09-13 14:49] LABS: Bacteria,Urine Rare; Bilirubin,Urine Negative (Negative); Blood,Urine Negative (Negative); Clarity,Urine Clear (Clear/Hazy); Color,Urine Yellow (Lt Yel-Yel); Culture Indicated,Urine Not Indicated; Glucose, Urine Negative (Negative); Ketones,Urine Negative (Negative); Leukocyte Esterase,Urine Negative (Negative); Nitrite,Urine Negative (Negative); PH,Urine 6.5 (5.0-7.0); Protein,Urine Negative (Neg - Trace); Specific Gravity,Urine 1.007 (1.001-1.035); Urobilinogen,Urine Negative mg/dL (0.0-1.0)
[2025-09-13 14:57] LABS: Amphetamine/Methamp Scrn,U Negative (Negative); Barbiturate Screen,Urine Negative (Negative); Benzodiazepines Screen,Urine Negative (Negative); Benzoylecgonine Screen, Ur Negative (Negative); Fentanyl Screen,Urine Negative (Negative); Opiate Screen,Urine Negative (Negative); THC Screen,Urine Negative (Negative)
[2025-09-13 16:05] VITALS: BP 120/77; PULSE 95; RESP 19; TEMP 36.4; O2SAT 100
[2025-09-13 17:48] VITALS: BP 117/77; PULSE 86; RESP 19; TEMP 36.6; O2SAT 100
[2025-09-13 19:18] VITALS: BP 100/64; PULSE 77; RESP 18; TEMP 36.9; O2SAT 100
== END 2025-09-13 19:42 | disposition home or self-care (01) ==
PROVIDERS: Registered Nurse General Practice; Emergency Provider Emergency Medicine; PCP Family Medicine
DX: F10.129 Alcohol abuse with intoxication, unspecified (principal); Y90.9 Presence of alcohol in blood, level not specified
CPT/HCPCS: 36415; 80053; 80307; 81001; 83735; 85025; 85610; 85730; 96360; 99282; J7120

== ENCOUNTER 2025-09-14 17:04 | Emergency (ER) | payer MEDICAID, SELFPAY ==
[2025-09-14 17:12] VITALS: BP 109/76; PULSE 91; RESP 18; TEMP 37.2; O2SAT 93
[2025-09-14 17:18] VITALS: O2SAT 88
[2025-09-14 17:20] VITALS: PULSE 88; RESP 20; O2SAT 100; BMI 28.3
--- NOTE | 2025-09-14 17:25 | EDNOTE_ITS ---
ED General RME/HPI General Chief complaint: Alcohol Stated complaint: ETOH Time Seen by Provider: 09/14/25 17:24 Arrival date/time: 09/14/25 17:04 CC: Alcohol intoxication low oxygen saturations HPI patient presents to the ER via EMS patient is a frequent flyer he was seen here yesterday for alcohol intoxication left on his own accord today he is here complaining same complaints headache abdominal pain chest pain. He has slurred speech saying he had 3 beers . EMS report low oxygen saturations upon initial assessment but by [employer] who found him in front of the store, however patient's oxygen saturations have never been as low as 88% on room air. Related Data Home Medications ?Medication ?Instructions ?Recorded ?Confirmed lactulose 10 gram/15 mL oral 10 g PO TID liver cirrhos is 08/24/25 08/24/25 solution Previous Rx's ?Medication ?Instructions ?Recorded thiamine mononitrate (vit B1) 100 100 mg PO QDAY #30 t abs 04/02/25 mg tablet pantoprazole 40 mg tablet,delayed 40 mg PO QDAY #90 ta bs 06/28/25 release carvedilol 3.125 mg tablet (Coreg) 3.125 mg PO BID 1 m onth #60 tabs 08/28/25 folic acid 1 mg tablet 1 mg PO QDAY 1 month #30 tab s 08/28/25 Allergies Allergy/AdvReac Type Severity Reaction Status Date / Time No Known Allergies Allergy Verified 09/14/25 17:29 Review of Systems Review of Systems Narrative Review of Systems: GEN: No fever, no chills, no weight loss EYES: No discharge, no visual changes, no pain HEENT: No ear pain, no congestion, no sore throat PULM: No shortness of breath, no cough, no congestion CV: + chest pain, no dyspnea on exertion, no palpitations GI: No nausea, no vomiting, no diarrhea, no pain, no constipation : No frequency, no urgency, no dysuria MUSC/SKEL: No joint pain, no back pain SKIN: No rash PSYCH: No hallucinations, no depression HEME/LYMPH: No easy bleeding or bruising tendencies NEURO: No weakness, + headache Past Medical History Past Medical History NEUROLOGIC: Negative Neurological Disorders or Seizures CARDIAC: Positive Myocardial Infarction, Angina and Hypertension; Negative Cardiac Disorders, Cardiac Arrhythmia, Atrial Fibrillation, Heart Murmur, Coronary Artery Disease, Atherosclerotic Heart Disease, Peripheral Vascular Disease, Hypercholesterolemia, Aneurysm, Congestive Heart Failure, Congenital Heart Disease, Rheumatic Fever, Cardiomyopathy, Edema, Pericarditis, Cellulitis, Deep Vein Thrombosis, Hypotension or Varicose Veins RESPIRATORY: Negative Chronic Obstructive Pulmonary Disease (COPD) or Asthma GASTROINTESTINAL: Positive Hepatitis, Gastrointestinal Bleed, Esophageal Varices and Gastroesophageal Reflux Disease; Negative Gastrointestinal Disorders, Cirrhosis, Pancreatitis, Celiac Disease, Gall Bladder Disease, Bettencourt's Esophagus, Colitis, Ulcerative Colitis, Diverticulitis, Diverticulosis, Ulcer, Irritable Bowel, Crohn's Disease, Obstructive Bowel, Hiatal Hernia, Hemorrhoids or Obesity GENITOURINARY: Negative Genitourinary Disorders or Renal Disease MUSCULOSKELETAL: Negative Musculoskeletal Disorders ENT: Negative Cataracts, Glaucoma, Blind, Retinal Detachment, Macular Degeneration, Ear Infection, Deafness or Eye Prosthesis ENDOCRINE: Negative Endocrine Disorders, Diabetes Mellitus Type 1, Diabetes Mellitus Type 2, Hypoglycemia, Awais's Syndrome, Tadeo's Disease, Hyperthyroidism, Hypothyroidism, Parathyroid Disease, Pituitary Disease, Systemic Lupus Erythematosus, Syndrome of Inappropriate Antidiuretic Hormone (SIADH), Adrenal Disease or Graves' Disease HEMATOLOGIC: Positive Anemia; Negative Blood Disorders or Sickle Cell Disease PSYCHO/SOCIAL: Positive Recreational Drug Use, Depression and Anxiety OTHER HISTORY: Positive Hospitalization, Falls, Blood Transfusions and Chicken Pox; Negative Autoimmune Disease, Down Syndrome, Developmental Delay, Blood Transfusi on Reaction, Anesthesia Reactions, Organ Transplant, MRSA, VRSA, Clostridium Difficile or Cancer Family History FAMILY HISTORY: Negative Family Psychiatric Problems, Family Respiratory Disorders, Family Cardiac Disorders, Family Gastrointestinal Problems, Family Cancer, Family Surgery or Family Anesthesia Reaction Surgical History SURGICAL: Negative Cardiac Surgery, Pacemaker, Endocrine Surgery, Ear Surgery, Abdominal Surgery, Nephrectomy, Joint Replacement, Neurologic Surgery, Vasectomy or Organ Transplant Social History SMOKING STATUS: Never smoker SECOND HAND EXPOSURE: No SUBSTANCE USE: methamphetamine ED Exam Narrative Physical exam: [General: 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, 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 not in any acute distress Head normocephalic HEENT: Eyes pupils are PERRLA EOMs intact within acceptable limits Neck is supple nontender Chest equal chest rise nontender to palpation Respiratory: Clear to auscultation no wheezes crackles or rubs CV: Rate rhythm is regular no murmurs rubs or clicks Abdomen is soft nontender no masses positive bowel sounds all 4 quadrants Back: No CVA tenderness no spinous process tenderness from cervical spine thoracic and lumbar spine Skin: Intact no petechiae rash induration ulceration or crepitus Extremities: Moving all extremity against resistance cap refill less than 2 seconds neurosensory intact Neuro: Awake alert oriented x2, person and place, Glascow coma 15 no focal deficits] Course Course Course Narrative: Patient able to ambulate and eat food and converse, this time patient will be discharged home. Quality Measures none Orders Category Date Time Status CBC Stat Lab 09/14/25 17:34 Completed CMP [Comprehensive Metabolic Panel] Stat Lab 09/14/25 17:34 Completed PT [Prothrombin Time with INR] Stat Lab 09/14/25 17:34 Completed PTT [Partial Thromboplastin Time] Stat Lab 09/14/25 17:34 Completed Vital Signs Vital signs: Vital Signs Temperature 98.9 F 09/14/25 17:12 Pulse Rate 91 09/14/25 17:12 Respiratory Rate 18 09/14/25 17:12 Blood Pressure 109/76 09/14/25 17:12 Pulse Oximetry (%) 93 L 09/14/25 17:12 Oxygen Delivery Method Room Air 09/14/25 17:12 Discharge Plan Plan Patient Disposition: HOME (Self Care) Patient condition on transfer: Stable Prescriptions/Referrals Prescriptions/Med Rec: No Action pantoprazole 40 mg tablet,delayed release (DR/EC) 40 mg PO QDAY Qty: 90 0RF lactulose 10 gram/15 mL solution 10 g PO TID Patient Comments: TAKE 15 ML NEEDED ORALLY 3 TIMES A DAY folic acid 1 mg Tablet 1 mg PO QDAY 30 Days Qty: 30 0RF carvedilol [Coreg] 3.125 mg tablet 3.125 mg PO BID 30 Days Qty: 60 0RF Rx Instructions: must administer with a meal/food thiamine mononitrate (vit B1) 100 mg Tablet 100 mg PO QDAY Qty: 30 0RF Referrals: Cezar Adams MD [Primary Care Provider, Family Practice] - In 1 week Problem List Clinical Impression: Alcohol intoxication Patient/Caregiver Discharge Instructions Education Materials: ED Alcohol Intoxication Print Language: Micronesian Stand Alone Forms: Kallie Award Info., Patient Portal Info Letter PA/CODE NUMBER STAMPER Supervising Physician PA/CODE NUMBER STAMPER Supervising Physician: Surendra Oliveira ENP MDM Clinical Information Provided by: patient and EMS Medical Records reviewed [facility] and EMS Meds/Rx considered, not ordered None Labs/Rad/Tests considered, not ordered None Chronic Illness/Social Conditions which may negatively complicate care or outcome(s)-explain: ETOH/drugs/substance abuse
[2025-09-14 17:55] LABS: Basophils # (Auto) 0.1 Thou/mm3 (0.0-0.2); Basophils % (Auto) 1 % (0-2.5); Eosinophils # (Auto) 0.4 Thou/mm3 (0.0-0.5); Eosinophils % (Auto) 6 % (0-10); Hematocrit 25.6 % (41.0-53.0); Immature Granulocytes Auto 0.04 Thou/mm3 (0.00-0.00); Lymphocytes # (Auto) 1.6 Thou/mm3 (1.0-4.8); Lymphocytes % (Auto) 26 % (10-50); Mean Corpuscular HGB Conc 33.2 g/dl (31.0-37.0); Mean Corpuscular Hemoglobin 30.4 pg (25.0-35.0); Mean Corpuscular Volume 91 fL (80-100); Monocytes # (Auto) 0.5 Thou/mm3 (0.0-0.8); Monocytes % (Auto) 8 % (0-12); Neutrophils # (Auto) 3.6 Thou/mm3 (1.8-7.7); Neutrophils % (Auto) 59 % (37-80); Nucleated Red Blood Cell # 0.00 Thou/mm3 (0.00-0.00); Nucleated Red Blood Cell % 0 /100 WBC (0); RDW Standard Deviation 73.7 fL (35.1-43.9); Red Blood Count 2.80 Miln/mm3 (4.50-5.90); White Blood Count 6.2 Thou/mm3 (3.8-10.6)
[2025-09-14 17:58] LABS: Hemoglobin 8.5 g/dL (13.5-16.0); Platelet Count 34 Thou/mm3 (140-440)
[2025-09-14 18:08] LABS: INR 1.4 (0.9-1.3); Partial Thromboplastin Time 34.2 Seconds (22.0-36.0); Prothrombin Time 14.3 Seconds (9.0-12.2)
[2025-09-14 18:14] LABS: Alanine Aminotransferase 19 U/L (10-49); Albumin, Serum 3.6 gm/dL (3.5-5.0); Albumin/Globulin Ratio 1.0 (1.2-2.2); Alkaline Phosphatase 182 U/L (46-116); Anion Gap 11 (7-16); Aspartate Amino Transferase 93 U/L (0-34); BUN/Creatinine Ratio 8 Ratio (12-20); Bilirubin,Total 2.6 mg/dL (0.3-1.2); Blood Urea Nitrogen < 5 mg/dL (9-23); Calcium 8.1 mg/dL (8.3-10.6); Calcium (Corrected) 8.4 mg/dL (8.5-10.1); Carbon Dioxide 26.9 mMol/L (20.0-31.0); Chloride 101 mMol/L (98-107); Creatinine (Component) 0.6 mg/dL (0.6-1.3); Estimated Creatinine Clearance 152.1 mL/min (>60); Globulin 3.7 gm/dL (2.3-3.5); Glucose 101 mg/dL (74-106); Osmolality,Calculated 274 (275-295); Potassium 3.6 mMol/L (3.4-5.1); Sodium 139 mMol/L (136-145); Total Protein 7.3 gm/dL (5.7-8.2); eGFR > 60 See Note
[2025-09-14 18:26] VITALS: BP 99/64; PULSE 84; RESP 13; TEMP 36.9; O2SAT 98
[2025-09-14 18:40] LABS: Slide Review Platelets confirmed
[2025-09-14 19:52] VITALS: BP 99/56; PULSE 91; RESP 14; TEMP 36.9; O2SAT 96
--- NOTE | 2025-09-14 19:59 | PC.NURSE ---
pt awake and alert, laying in gurney. pt reports he drank 3 tall cans today. pt offered food and water, denied at this time.
[2025-09-14 22:16] VITALS: BP 99/67; PULSE 90; RESP 15; TEMP 36.9; O2SAT 97
[2025-09-15 00:30] VITALS: BP 95/70; PULSE 81; RESP 15; O2SAT 96
[2025-09-15 01:46] VITALS: BP 104/61; PULSE 74; RESP 15; TEMP 36.8; O2SAT 96
[2025-09-15 04:26] VITALS: BP 105/68; PULSE 80; RESP 16; TEMP 36.8; O2SAT 98
[2025-09-15 06:09] VITALS: BP 116/77; PULSE 99; RESP 18; TEMP 37; O2SAT 98
== END 2025-09-15 06:12 | disposition home or self-care (01) ==
PROVIDERS: Registered Nurse General Practice; Emergency Provider Emergency Medicine; PCP Family Medicine
DX: F10.129 Alcohol abuse with intoxication, unspecified (principal); Y90.9 Presence of alcohol in blood, level not specified; Z95.0 Presence of cardiac pacemaker; Z96.60 Presence of unspecified orthopedic joint implant
CPT/HCPCS: 36415; 80053; 85025; 85610; 85730; 99282

== ENCOUNTER 2025-09-17 14:58 | Emergency (ER) | payer MEDICAID, SELFPAY ==
[2025-09-17] VITALS (8 sets, daily range): BP systolic 88–115; BP diastolic 55–78; PULSE 69–93; RESP 16–18; TEMP 36.7–36.9; O2SAT 93–98; BMI 29.4
--- NOTE | 2025-09-17 15:07 | XR_ITS ---
Examination: CT brain head without contrast. 2-D sagittal coronal reconstructions Date and time of exam: September 17, 2025, 1650 hours COMPARISON: August 17, 2025 INDICATIONS: Generalized head pain today CTDI: vol (mGy): 47.6 DLP: (mGycm): 938 Technique: Multiple CT axial sections of the brain have been obtained, 5 mm slice thickness. Contrast has not been administered. 2-D sagittal, coronal reconstructions have been obtained Low dose protocols were performed. One or more of the following dose reduction techniques were used; automated exposure control, adjustment of the mA and/or KV according to patient size, use of iterative reconstruction technique. Findings: No significant ventricular enlargement. Intra-axial or extra-axial hemorrhage density is not seen. No mass effect or midline shift Basal cisterns are not remarkable. Fourth ventricle is midline. Cranial vault intact. Impression: Negative for acute hemorrhage, mass effect or midline shift Advise clinical correlation and follow-up accordingly
--- NOTE | 2025-09-17 15:08 | EDNOTE_ITS ---
ED Headache RME/HPI General Chief Complaint: Headache Stated Complaint: HEADACHE, INTOXICATED Time Seen by Provider: 09/17/25 15:06 Arrival date/time: 09/17/25 14:58 44-year-old significant history of homelessness, chronic alcoholism, chronic anemia, was brought in by EMS for evaluation regarding headache. Patient told me that he was drinking today, had a sudden onset of headache, described as pulsating, severity moderate. Patient is moving both upper extremity without any limitation. Patient is ambulatory with help. Denies any trauma or fall recently. Patient admits of drinking alcohol today. No medication was given prior to ER visit. Related Data Home Medications ?Medication ?Instructions ?Recorded ?Confirmed lactulose 10 gram/15 mL oral 10 g PO TID liver cirrhos is 08/24/25 08/24/25 solution Previous Rx's ?Medication ?Instructions ?Recorded thiamine mononitrate (vit B1) 100 100 mg PO QDAY #30 t abs 04/02/25 mg tablet pantoprazole 40 mg tablet,delayed 40 mg PO QDAY #90 ta bs 06/28/25 release carvedilol 3.125 mg tablet (Coreg) 3.125 mg PO BID 1 m onth #60 tabs 08/28/25 folic acid 1 mg tablet 1 mg PO QDAY 1 month #30 tab s 08/28/25 Allergies Allergy/AdvReac Type Severity Reaction Status Date / Time No Known Allergies Allergy Verified 09/17/25 15:07 Review of Systems Review of Systems Narrative Review of Systems: Review of system reviewed and within normal limits except mentioned in HPI ED Exam Narrative Physical exam: VITAL SIGNS: Reviewed. GENERAL APPEARANCE: Alert and interactive, follows commands, no acute distress, intoxicated HEAD AND FACE: Non-traumatic. ENT: PERRL, pink conjunctivitis, eyelid no trauma, Mucous membrane moist. NECK: Supple, nontender, no nuchal rigidity. CHEST: No tenderness, no crepitus, no paradoxical movement, no retractions. LUNGS: Clear, well ventilated, symmetric, no rales, no wheezing, no ronchi, no stridor, good breath sounds bilaterally. HEART: Regular rate, regular rhythm, no murmur, no gallops. ABDOMEN: Soft, positive bowel sounds, nondistended, no guarding, nontender, no rebound, no masses, RECTAL: Deferred. GENITAL: Deferred. NEUROLOGICAL: Gross motor function intact sensory function intact, Appropriate for age. MUSCULOSKELETAL: low back nontender, full range of motion. EXTREMITIES: Nontender, full range of motion. SKIN: Color pink, dry, no rash, no lacerations, no abrasions, no contusions. LYMPHATICS: Deferred. Course Quality Measures none Orders Category Date Time Status CT head/brain wo con Stat Exams 09/17/25 15:07 Completed Alcohol, Blood Medical Stat Lab 09/17/25 15:48 Completed CBC Stat Lab 09/17/25 15:48 Completed Comprehensive Metabolic Panel Stat Lab 09/17/25 15:48 Completed Partial Thromboplastin Time Stat Lab 09/17/25 15:48 Completed Prothrombin Time with INR Stat Lab 09/17/25 15:48 Completed Acetaminophen Tab [Tylenol ES Tab] Med 09/17/25 15:07 Discontinued 1,000 mg PO X1 ONE Vital Signs Vital signs: Vital Signs Temperature 98.1 F 09/17/25 15:04 Pulse Rate 86 09/17/25 15:04 Respiratory Rate 18 09/17/25 15:04 Blood Pressure 106/72 09/17/25 15:04 Pulse Oximetry (%) 95 09/17/25 15:04 Oxygen Delivery Method Room Air 09/17/25 15:04 Headache MDM Narrative MDM Narrative:: 44-year-old male patient with significant history of homelessness, chronic alcoholism, chronic anemia, was brought in by EMS for evaluation regarding headache. Patient told me that he was drinking today, had a sudden onset of headache, described as pulsating, severity moderate. Patient is moving both upper extremity without any limitation. Patient is ambulatory with help. Denies any trauma or fall recently. Admits of drinking alcohol today. No medication was given prior to ER visit. CT scan of the head came back unremarkable. CBC showed hemoglobin 8.5, hematocrit of 25.5. Patient platelet was noted to be 26. Patient is actively not bleeding. Patient was given Tylenol with complete resolution of headache. Patient's alcohol today was noted to be 473. Patient is known to this emergency room coming here all the time with elevated alcohol level patient has been advised to stop alcohol abuse however still drinking. He is stable for discharge home I told him to stop drinking alcohol. Patient verbalized understanding. Patient was noted to be ambulatory with steady gait. Patient data External records reviewed:: None Clinical information provided by:: patient Social determinants that could affect healthcare access:: alcohol use Patient has the following chronic illnesses:: Chronic alcohol abuse How is presenting disease/condition affected by chronic disease/condition?: exacerbated by Evaluation data The following diagnostics were reviewed and interpreted by me:: lab results and radiology exam(s) Lab and/or radiology exams considered but not ordered:: None Interpretation Summary: See MDM Medications / Prescriptions Medications or Prescriptions considered but not ordered:: None Medication administrations:: Medication Administration History Discontinued Medications Acetaminophen (Acetaminophen 500 Mg Tablet) 1,000 mg PO X1 ONE Stop: 09/17/25 15:08 Last Admin: 09/17/25 15:28 Dose: 1,000 mg Documented By: BY Tylenol Consultations Consultation(s) initiated? (list below): No Diagnosis Differential diagnosis headache: headache and other (Homelessness, chronic alcohol abuse, alcohol intoxication) Most likely diagnosis given after review of the tests above:: Homelessness headache alcohol intoxication Admission Indicated Admission indicated?: not indicated Admission Request Was there a request for admission?: No Disposition Plan Disposition Plan: Discharge Discharge Attestation Discharge Attestation: The patient was given an opportunity to ask questions and understood the discharge instructions. Discharge instructions specifically effects, indications for sooner follow up or return to the emergency department, and the expected course of current diagnosis. Patient condition: Stable Discharge Plan Plan Patient Disposition: HOME (Self Care) Discharge Disposition comment: stable Prescriptions/Referrals Prescriptions/Med Rec: No Action pantoprazole 40 mg tablet,delayed release (DR/EC) 40 mg PO QDAY Qty: 90 0RF lactulose 10 gram/15 mL solution 10 g PO TID Patient Comments: TAKE 15 ML NEEDED ORALLY 3 TIMES A DAY folic acid 1 mg Tablet 1 mg PO QDAY 30 Days Qty: 30 0RF carvedilol [Coreg] 3.125 mg tablet 3.125 mg PO BID 30 Days Qty: 60 0RF Rx Instructions: must administer with a meal/food thiamine mononitrate (vit B1) 100 mg Tablet 100 mg PO QDAY Qty: 30 0RF Referrals: Cezar Adams MD [Primary Care Provider, Family Practice] - In 1 week Problem List Clinical Impression: Alcohol abuse, Headache Patient/Caregiver Discharge Instructions Discharge Activity: activity as tolerated Education Materials: Understanding Alcoholism Additional Instructions: Thank you for the opportunity for serving you today. You are stable for discharged . You are advised to: Follow-up with your PCP in 1 to 2 days Return to ED for worsening of symptoms Please stop abusing alcohol Print Language: New Zealander Stand Alone Forms: Kallie Award Info., Patient Portal Info Letter BRIANNE/JABIER Supervising Physician BRIANNE/JABIER Supervising Physician: MD Amanda
[2025-09-17] MEDS: ACETAMINOPHEN 500 MG TABLET 1000 MG PO (15:28)
[2025-09-17 16:04] LABS: Basophils # (Auto) 0.1 Thou/mm3 (0.0-0.2); Basophils % (Auto) 1 % (0-2.5); Eosinophils # (Auto) 0.3 Thou/mm3 (0.0-0.5); Eosinophils % (Auto) 6 % (0-10); Hematocrit 25.5 % (41.0-53.0); Immature Granulocytes Auto 0.02 Thou/mm3 (0.00-0.00); Lymphocytes # (Auto) 1.5 Thou/mm3 (1.0-4.8); Lymphocytes % (Auto) 30 % (10-50); Mean Corpuscular HGB Conc 33.3 g/dl (31.0-37.0); Mean Corpuscular Hemoglobin 30.2 pg (25.0-35.0); Mean Corpuscular Volume 91 fL (80-100); Monocytes # (Auto) 0.4 Thou/mm3 (0.0-0.8); Monocytes % (Auto) 8 % (0-12); Neutrophils # (Auto) 2.8 Thou/mm3 (1.8-7.7); Neutrophils % (Auto) 54 % (37-80); Nucleated Red Blood Cell # 0.00 Thou/mm3 (0.00-0.00); Nucleated Red Blood Cell % 0 /100 WBC (0); RDW Standard Deviation 68.6 fL (35.1-43.9); Red Blood Count 2.81 Miln/mm3 (4.50-5.90); White Blood Count 5.2 Thou/mm3 (3.8-10.6)
[2025-09-17 16:23] LABS: Hemoglobin 8.5 g/dL (13.5-16.0)
[2025-09-17 16:27] LABS: Platelet Count 26 Thou/mm3 (140-440)
[2025-09-17 16:29] LABS: INR 1.4 (0.9-1.3); Partial Thromboplastin Time 36.1 Seconds (22.0-36.0); Prothrombin Time 14.7 Seconds (9.0-12.2)
[2025-09-17 16:32] LABS: Alanine Aminotransferase 20 U/L (10-49); Albumin, Serum 3.7 gm/dL (3.5-5.0); Albumin/Globulin Ratio 1.0 (1.2-2.2); Alkaline Phosphatase 190 U/L (46-116); Anion Gap 11 (7-16); Aspartate Amino Transferase 113 U/L (0-34); BUN/Creatinine Ratio 8 Ratio (12-20); Bilirubin,Total 2.9 mg/dL (0.3-1.2); Blood Urea Nitrogen < 5 mg/dL (9-23); Calcium 8.0 mg/dL (8.3-10.6); Calcium (Corrected) 8.2 mg/dL (8.5-10.1); Carbon Dioxide 28.8 mMol/L (20.0-31.0); Chloride 101 mMol/L (98-107); Creatinine (Component) 0.6 mg/dL (0.6-1.3); Estimated Creatinine Clearance 155.0 mL/min (>60); Globulin 3.8 gm/dL (2.3-3.5); Glucose 97 mg/dL (74-106); Osmolality,Calculated 278 (275-295); Potassium 3.4 mMol/L (3.4-5.1); Sodium 141 mMol/L (136-145); Total Protein 7.5 gm/dL (5.7-8.2); eGFR > 60 See Note
[2025-09-17 16:41] LABS: Alcohol, Blood Medical 473.9 mg/dL (0-10.0)
[2025-09-17 16:44] LABS: Slide Review Platelets confirmed
--- NOTE | 2025-09-17 17:45 | PC.NURSE ---
PT RESTING ON GURNEY IN NO APPARENT DISTRESS. RESPIRATION EVEN AND UNLABORED. AWAITING DR TO REVIEW RESULTS.
[2025-09-18 02:02] VITALS: BP 96/64; PULSE 88; RESP 12; O2SAT 95
== END 2025-09-18 02:41 | disposition home or self-care (01) ==
PROVIDERS: Nurse Practitioner Family; Emergency Provider Family Medicine; PCP Family Medicine
DX: R51.9 Headache, unspecified (principal); F10.20 Alcohol dependence, uncomplicated
CPT/HCPCS: 36415; 70450; 80053; 80320; 85025; 85610; 85730; 99283; A9270; G0480

== ENCOUNTER 2025-09-30 21:29 | Emergency (ER) | payer OTHER, SELFPAY ==
[2025-09-30 21:30] VITALS: BP 139/97; PULSE 88; RESP 18; TEMP 37.1; O2SAT 100
[2025-09-30 21:31] VITALS: BMI 29.1
--- NOTE | 2025-09-30 21:41 | PD.EDMEDCL ---
ED Medical Clearance RME/HPI General Chief complaint: Medical Clearance Stated complaint: medical clearance Time Seen by Provider: 09/30/25 21:39 Arrival date/time: 09/30/25 21:29 44-year-old male patient with significant history of liver cirrhosis, chronic alcoholism, was brought in by law enforcement for evaluation regarding possible bright red blood per rectum. Patient was noted to have a blood in the stool today. Patient told me that has been incarcerated for the last 12 days, last alcohol intake was 12 days ago. Patient denies any abdominal pain denies any dizziness denies any vomiting denies any complaints. There was concern because patient last hemoglobin was noted to be 8.9. Related Information Home Medications ?Medication ?Instructions ?Recorded ?Confirmed lactulose 10 gram/15 mL oral 10 g PO TID liver cirrhosis 08/24/25 08/24/25 solution Previous Rx's ?Medication ?Instructions ?Recorded thiamine mononitrate (vit B1) 100 100 mg PO QDAY #30 tabs 04/02/25 mg tablet pantoprazole 40 mg tablet,delayed 40 mg PO QDAY #90 tabs 06/28/25 release calcium polycarbophil 625 mg 1,250 mg (2 x 625 mg) PO BID #30 09/30/25 tablet (FiberCon) tabs hydrocortisone acetate [address] BID #24 ea 09/30/25 rectal suppository (Anusol-HC) Allergies Allergy/AdvReac Type Severity Reaction Status Date / Time No Known Allergies Allergy Verified 09/30/25 21:33 Review of Systems Review of Systems Narrative Review of Systems: Review of system reviewed and within normal limits except mentioned in HPI ED Exam Narrative Physical exam: VITAL SIGNS: Reviewed. GENERAL APPEARANCE: Alert and interactive, follows commands, no acute distress, HEAD AND FACE: Non-traumatic. ENT: PERRL, pale conjunctiva, slightly sclerotic sclera, eyelid no trauma, Mucous membrane moist. NECK: Supple, nontender, no nuchal rigidity. CHEST: No tenderness, no crepitus, no paradoxical movement, no retractions. LUNGS: Clear, well ventilated, symmetric, no rales, no wheezing, no ronchi, no stridor, good breath sounds bilaterally. HEART: Regular rate, regular rhythm, no murmur, no gallops. ABDOMEN: Soft, positive bowel sounds, nondistended, no guarding, nontender, no rebound, no masses, RECTAL: Rectal exam was done by me, I did not notice any black tarry stool tested negative for occult blood NEUROLOGICAL: Gross motor function intact sensory function intact, Appropriate for age. MUSCULOSKELETAL: low back nontender, full range of motion. EXTREMITIES: Nontender, full range of motion. SKIN: Color pink, dry, no rash, no lacerations, no abrasions, no contusions. LYMPHATICS: Deferred. Course Quality Measures none Orders Category Date Time Status Occult Blood,Stool (Nursing) NOW Care 09/30/25 21:40 Active CBC Stat Lab 09/30/25 21:53 Results Comprehensive Metabolic Panel Stat Lab 09/30/25 21:53 Completed Prothrombin Time with INR Stat Lab 09/30/25 21:53 Completed Type and Screen Stat Lab 09/30/25 21: Received Pantoprazole [Protonix] Med 09/30/25 21:40 Discontinued 40 mg PO X1 ONE Vital Signs Vital signs: Vital Signs Temperature 98.7 F 09/30/25 21:30 Pulse Rate 88 09/30/25 21:30 Respiratory Rate 18 09/30/25 21:30 Blood Pressure 139/97 H 09/30/25 21:30 Pulse Oximetry (%) 100 09/30/25 21:30 Oxygen Delivery Method Room Air 09/30/25 21:30 Medical Clearance MDM Narrative MDM Narrative:: 44-year-old male patient with significant history of liver cirrhosis, chronic alcoholism, was brought in by law enforcement for evaluation regarding possible bright red blood per rectum. Patient was noted to have a blood in the stool today. Patient told me that has been incarcerated for the last 12 days, last alcohol intake was 12 days ago. Patient denies any abdominal pain denies any dizziness denies any vomiting denies any complaints. There was concern because patient last hemoglobin was noted to be 8.9. Rectal exam was done by me and I noticed nonbleeding hemorrhoids at 11 o'clock position. Nonthrombosed Patient's hemoglobin today was noted to be 9.6 hematocrit of 28.9 platelet of [address] is way better than 2 weeks ago. The rest of the labs showed chronic liver problem probably secondary to alcoholic liver cirrhosis. No recurrence of rectal bleeding noted in the emergency room. Patient is medically cleared for incarceration Patient data External records reviewed:: None Clinical information provided by:: patient Social determinants that could affect healthcare access:: alcohol use Patient has the following chronic illnesses:: Liver cirrhosis How is presenting disease/condition affected by chronic disease/condition?: exacerbated by Evaluation data The following diagnostics were reviewed and interpreted by me:: lab results Lab and/or radiology exams considered but not ordered:: None Interpretation Summary: See above Medications / Prescriptions Medications or Prescriptions considered but not ordered:: None Medication administrations:: Medication Administration History Discontinued Medications Pantoprazole Sodium (Pantoprazole 40 Mg Tablet) 40 mg PO X1 ONE Stop: 09/30/25 21:41 Last Admin: 09/30/25 21:49 Dose: 40 mg Documented By: CCT Protonix Consultations Consultation(s) initiated? (list below): No Diagnosis Medical Clearance Differential Diagnosis: other (Bright red blood per rectum, anemia, history of liver cirrhosis, hemorrhoids) Most likely diagnosis given after review of the tests above:: Hemorrhoids, bright red blood per rectum Admission Indicated Admission indicated?: not indicated Admission Request Was there a request for admission?: No Disposition Plan Disposition Plan: Discharge Discharge Attestation Discharge Attestation: Patient condition: Stable Discharge Plan Plan Patient Disposition: Custodial/Court/Law Discharge Disposition comment: Stable Prescriptions/Referrals Prescriptions/Med Rec: New hydrocortisone acetate [Anusol-HC] 25 mg suppository [address] BID Qty: 24 0RF calcium polycarbophil [FiberCon] 625 mg tablet 1,250 mg PO BID Qty: 30 0RF No Action pantoprazole 40 mg tablet,delayed release (DR/EC) 40 mg PO QDAY Qty: 90 0RF lactulose 10 gram/15 mL solution 10 g PO TID Patient Comments: TAKE 15 ML NEEDED ORALLY 3 TIMES A DAY thiamine mononitrate (vit B1) 100 mg Tablet 100 mg PO QDAY Qty: 30 0RF Referrals: No Primary/Family,Physician [Primary Care Provider] - In 1 week Problem List Clinical Impression: BRBPR (bright red blood per rectum), Bleeding hemorrhoids Patient/Caregiver Discharge Instructions Discharge Activity: activity as tolerated Education Materials: ED Hemorrhoids Additional Instructions: Thank you for the opportunity for serving you today. You are stable for discharged . You are advised to: Follow-up with your PCP in 1 to 2 days Return to ED for worsening of symptoms Increase oral fluids Increase fiber in the diet, Anusol HC 1 suppositories twice daily for 14 days FiberCon 2 tablets twice a day as needed Print Language: Malian PA/[employer] Supervising Physician PA/[employer] Supervising Physician: MD Amanda
[2025-09-30] MEDS: PANTOPRAZOLE 40 MG TABLET PO (21:49)
[2025-09-30 22:16] LABS: Basophils # (Auto) 0.1 Thou/mm3 (0.0-0.2); Basophils % (Auto) 1 % (0-2.5); Eosinophils # (Auto) 0.5 Thou/mm3 (0.0-0.5); Eosinophils % (Auto) 7 % (0-10); Hematocrit 28.9 % (41.0-53.0); Hemoglobin 9.6 g/dL (13.5-16.0); Immature Granulocytes Auto 0.03 Thou/mm3 (0.00-0.00); Lymphocytes # (Auto) 1.0 Thou/mm3 (1.0-4.8); Lymphocytes % (Auto) 15 % (10-50); Mean Corpuscular HGB Conc 33.2 g/dl (31.0-37.0); Mean Corpuscular Hemoglobin 30.4 pg (25.0-35.0); Mean Corpuscular Volume 92 fL (80-100); Monocytes # (Auto) 0.8 Thou/mm3 (0.0-0.8); Monocytes % (Auto) 12 % (0-12); Neutrophils # (Auto) 4.0 Thou/mm3 (1.8-7.7); Neutrophils % (Auto) 64 % (37-80); Nucleated Red Blood Cell # 0.00 Thou/mm3 (0.00-0.00); Nucleated Red Blood Cell % 0 /100 WBC (0); RDW Standard Deviation 64.2 fL (35.1-43.9); Red Blood Count 3.16 Miln/mm3 (4.50-5.90); White Blood Count 6.2 Thou/mm3 (3.8-10.6)
[2025-09-30 22:18] LABS: Platelet Count 64 Thou/mm3 (140-440)
[2025-09-30 22:28] LABS: INR 1.6 (0.9-1.3); Prothrombin Time 16.2 Seconds (9.0-12.2)
[2025-09-30 22:33] LABS: Alanine Aminotransferase 18 U/L (10-49); Albumin, Serum 3.6 gm/dL (3.5-5.0); Albumin/Globulin Ratio 0.9 (1.2-2.2); Alkaline Phosphatase 197 U/L (46-116); Anion Gap 11 (7-16); Aspartate Amino Transferase 65 U/L (0-34); BUN/Creatinine Ratio 7 Ratio (12-20); Bilirubin,Total 3.0 mg/dL (0.3-1.2); Blood Urea Nitrogen 5 mg/dL (9-23); Calcium 8.7 mg/dL (8.3-10.6); Calcium (Corrected) 9.0 mg/dL (8.5-10.1); Carbon Dioxide 23.4 mMol/L (20.0-31.0); Chloride 102 mMol/L (98-107); Creatinine (Component) 0.7 mg/dL (0.6-1.3); Estimated Creatinine Clearance 132.1 mL/min (>60); Globulin 4.2 gm/dL (2.3-3.5); Glucose 95 mg/dL (74-106); Osmolality,Calculated 269 (275-295); Potassium 3.8 mMol/L (3.4-5.1); Sodium 136 mMol/L (136-145); Total Protein 7.8 gm/dL (5.7-8.2); eGFR > 60 See Note
[2025-09-30 22:42] LABS: Slide Review Platelets confirmed
[2025-09-30 22:45] VITALS: BP 135/67; PULSE 78; RESP 19; TEMP 36.7; O2SAT 99
== END 2025-09-30 22:50 ==
PROVIDERS: Nurse Practitioner Family; Emergency Provider Emergency Medicine
DX: K92.1 Melena (principal); K64.9 Unspecified hemorrhoids; F10.20 Alcohol dependence, uncomplicated; K74.60 Unspecified cirrhosis of liver
CPT/HCPCS: 36415; 80053; 85025; 85610; 86850; 86900; 86901; 99282; A9270

== ENCOUNTER 2025-10-12 20:38 | Emergency (ER) | payer MEDICAID, SELFPAY ==
[2025-10-12 20:41] VITALS: PULSE 100; O2SAT 98
[2025-10-12 20:49] VITALS: BP 113/66; PULSE 99; RESP 18; TEMP 36.5; O2SAT 97
[2025-10-12 20:50] VITALS: BMI 26.6
--- NOTE | 2025-10-12 21:11 | EKG_ITS ---
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
--- NOTE | 2025-10-12 21:11 | XR_ITS ---
EXAMINATION: PA chest single view TECHNIQUE: Upright PA chest single view Date and time: October 12, 2025, 2124 hours INDICATIONS: Chest pain shortness of breath beginning 2 days ago. FINDINGS: Mild prominence left ventricle No pneumonia or pulmonary edema Old right-sided rib fractures IMPRESSION: No active disease
--- NOTE | 2025-10-12 21:12 | PD.EDRME ---
Rapid Medical Screening Exam RME Arrival date/time: 10/12/25 20:38 This is a case of 44-year-old male with no medical history came in in the emergency room due to chest pain and shortness of breath for 2 days worsening of the symptoms this patient decided to start consult emergency room Chief Complaint: Chest Pain Time Seen by Provider: 10/12/25 20:54 Vital signs: Vital Signs Temperature 97.7 F 10/12/25 20:49 Pulse Rate 99 10/12/25 20:49 Respiratory Rate 18 10/12/25 20:49 Blood Pressure 113/66 10/12/25 20:49 Pulse Oximetry (%) 97 10/12/25 20:49 Oxygen Delivery Method Room Air 10/12/25 20:49 Exam: Normal rate regular rhythm no murmur clear breath Clinical Impression: Chest pain shortness of breath
[2025-10-12 21:31] LABS: Basophils # (Auto) 0.1 Thou/mm3 (0.0-0.2); Basophils % (Auto) 1 % (0-2.5); Eosinophils # (Auto) 0.8 Thou/mm3 (0.0-0.5); Eosinophils % (Auto) 11 % (0-10); Hematocrit 27.7 % (41.0-53.0); Hemoglobin 9.2 g/dL (13.5-16.0); Immature Granulocytes Auto 0.06 Thou/mm3 (0.00-0.00); Lymphocytes # (Auto) 1.3 Thou/mm3 (1.0-4.8); Lymphocytes % (Auto) 17 % (10-50); Mean Corpuscular HGB Conc 33.2 g/dl (31.0-37.0); Mean Corpuscular Hemoglobin 30.6 pg (25.0-35.0); Mean Corpuscular Volume 92 fL (80-100); Monocytes # (Auto) 0.8 Thou/mm3 (0.0-0.8); Monocytes % (Auto) 10 % (0-12); Neutrophils # (Auto) 4.3 Thou/mm3 (1.8-7.7); Neutrophils % (Auto) 59 % (37-80); Nucleated Red Blood Cell # 0.00 Thou/mm3 (0.00-0.00); Nucleated Red Blood Cell % 0 /100 WBC (0); RDW Standard Deviation 66.8 fL (35.1-43.9); Red Blood Count 3.01 Miln/mm3 (4.50-5.90); White Blood Count 7.3 Thou/mm3 (3.8-10.6)
[2025-10-12 21:35] LABS: Platelet Count 58 Thou/mm3 (140-440)
[2025-10-12 21:45] LABS: Collection Type, Urine Voided; Squamous Epithelial Cell,Urine 0 /hpf (0-5); WBC,Urine 0 /hpf (0-5)
[2025-10-12 21:48] LABS: Slide Review Platelets confirmed
[2025-10-12 21:52] LABS: Amorphous Crystals,Urine Present (Absent); Bacteria,Urine Rare; Bilirubin,Urine Negative (Negative); Blood,Urine Negative (Negative); Clarity,Urine Clear (Clear/Hazy); Color,Urine Yellow (Lt Yel-Yel); Glucose, Urine Negative (Negative); Ketones,Urine Negative (Negative); Leukocyte Esterase,Urine Negative (Negative); Nitrite,Urine Negative (Negative); PH,Urine 6.5 (5.0-7.0); Protein,Urine Negative (Neg - Trace); RBC,Urine 1 /hpf (0-3); Specific Gravity,Urine 1.014 (1.001-1.035); Urobilinogen,Urine Negative mg/dL (0.0-1.0)
[2025-10-12 21:56] LABS: B-Type Natriuretic Peptide 64 pg/mL (0-100)
[2025-10-12 21:57] LABS: Alanine Aminotransferase 27 U/L (10-49); Albumin, Serum 3.2 gm/dL (3.5-5.0); Albumin/Globulin Ratio 0.8 (1.2-2.2); Alkaline Phosphatase 286 U/L (46-116); Anion Gap 10 (7-16); Aspartate Amino Transferase 88 U/L (0-34); BUN/Creatinine Ratio 8 Ratio (12-20); Bilirubin,Total 2.3 mg/dL (0.3-1.2); Blood Urea Nitrogen < 5 mg/dL (9-23); Calcium 7.7 mg/dL (8.3-10.6); Calcium (Corrected) 8.3 mg/dL (8.5-10.1); Carbon Dioxide 27.6 mMol/L (20.0-31.0); Chloride 109 mMol/L (98-107); Creatinine (Component) 0.6 mg/dL (0.6-1.3); Estimated Creatinine Clearance 138.1 mL/min (>60); Globulin 4.2 gm/dL (2.3-3.5); Glucose 134 mg/dL (74-106); Osmolality,Calculated 291 (275-295); Potassium 3.4 mMol/L (3.4-5.1); Sodium 147 mMol/L (136-145); Total Protein 7.4 gm/dL (5.7-8.2); Troponin I 0.025 ng/mL (0.0-0.045); eGFR > 60 See Note
--- NOTE | 2025-10-12 23:46 | PD.EDCHEST ---
ED Chest Pain RME/HPI General Chief Complaint: Chest Pain Stated Complaint: CHEST PAIN, SOB Time Seen by Provider: 10/12/25 20:54 Arrival date/time: 10/12/25 20:38 RME / HPI RME / HPI narrative: 10/12/25 20:38 This is a case of 44-year-old male with no medical history came in in the emergency room due to chest pain and shortness of breath for 2 days worsening of the symptoms this patient decided to start consult emergency room Dr. Garcia?[facility] Main ED Evaluation: 44yo male with a history of alcohol dependence presents after having left precordial chest pain described as pressure in nature at 1500 that's lasted throughout the day. Notes having weakness to his BLE, but no reported collapse. Also reports dark stools x 2-3 days. No reported palpitations, but does report shortness of breath. PMH includes cirrhosis. Cardiac Risk Factors: No tobacco use, family history of cardiac disease, DM, or HTN. Related Data Home Medications ?Medication ?Instructions ?Recorded ?Confirmed lactulose 10 gram/15 mL oral 10 g PO TID liver cirrhosis 08/24/25 08/24/25 solution Previous Rx's ?Medication ?Instructions ?Recorded thiamine mononitrate (vit B1) 100 100 mg PO QDAY #30 tabs 04/02/25 mg tablet pantoprazole 40 mg tablet,delayed 40 mg PO QDAY #90 tabs 06/28/25 release calcium polycarbophil 625 mg 1,250 mg (2 x 625 mg) PO BID #30 09/30/25 tablet (FiberCon) tabs hydrocortisone acetate 25 mg 25 mg TN BID #24 ea 09/30/25 rectal suppository (Anusol-HC) Allergies Allergy/AdvReac Type Severity Reaction Status Date / Time No Known Allergies Allergy Verified 09/30/25 21:33 Review of Systems Review of Systems Systems Reviewed: All systems reviewed, normal except as documented ED Exam Narrative Physical exam: GENERAL APPEARANCE: alert and oriented x 4, debilitated, unkempt, complaining of left-sided chest pain, no acute distress VITALS: All vitals were reviewed and the pulse ox is 97% on room air, which is normal according to my interpretation. HEENT: Normocephalic, atraumatic; pupils equal, round, reactive to light; EOMI; mucous membranes pink, moist; oropharynx clear NECK: Supple, + JVD LUNGS: CTABL; no wheezes, no rales, no rhonchi HEART: Mildly tachycardic, regular rhythm; normal S1, S2; no murmurs ABDOMEN: non distended; normal BS; soft, no tenderness, no guarding, no rebound; no masses, no organomegaly, no hernia BACK: no CVA tenderness RECTAL: Health Inspector Food present; nonmelenic stools, ?trace positive stools EXTREMITIES: atraumatic; no edema NEUROLOGIC: awake; alert and oriented x4; cranial nerves II-XII grossly intact; no focal sensory or motor deficits PSYCHIATRIC: appropriate mood and affect SKIN: warm, dry, normal color; no rashes Course Course Course Narrative: CXR is ordered for determining the etiology of chest pain. Quality Measures none Orders Category Date Time Status EKG (ED ONLY) *Do not use* NOW Care 10/12/25 21:11 Completed EKG (ED ONLY) *Do not use* NOW Care 10/13/25 01:06 Completed EKG (ED Only) Stat Exams 10/12/25 21:11 Draft EKG (ED Only) Stat Exams 10/13/25 01:06 Draft XR chest 1V Stat Exams 10/12/25 21:11 Completed Alcohol, Blood Medical Stat Lab 10/12/25 21:20 Completed BNP [B-Type Natriuretic Peptide] Stat Lab 10/12/25 21:20 Completed CBC Stat Lab 10/12/25 21:20 Completed CMP [Comprehensive Metabolic Panel] Stat Lab 10/12/25 21:20 Completed Troponin I Stat Lab 10/12/25 21:20 Completed Troponin I Stat Lab 10/13/25 01:08 Completed Urinalysis Stat Lab 10/12/25 21:39 Completed Acetaminophen Tab [Tylenol Tab] Med 10/13/25 00:00 Discontinued 650 mg PO X1 ONE Folic Acid Inj Med 10/12/25 23:59 Discontinued 1 mg IVP X1 ONE Magnesium Sulfate 2 GM Ivpb [Magnesium Sulfate Ivpb] Med 10/12/25 23:59 Discontinued 2 gm in 50 ml IV X1 Sodium Chloride 0.9% 500 ml [Ns] 500 ml Med 10/13/25 00:00 Discontinued IV 250 mls/hr Thiamine Inj [Vitamin B-1 Inj] Med 10/12/25 23:59 Discontinued 100 mg IVP X1 ONE Vital Signs Vital signs: Vital Signs Temperature 97.7 F 10/12/25 20:49 Pulse Rate 99 10/12/25 20:49 Respiratory Rate 18 10/12/25 20:49 Blood Pressure 113/66 10/12/25 20:49 Pulse Oximetry (%) 97 10/12/25 20:49 Oxygen Delivery Method Room Air 10/12/25 20:49 Chest Pain MDM Narrative MDM Narrative:: Scribe Attestation: 10/12/25 - Ny Landers am scribing for and in the presence of Dr. Garcia. 44yo male with a history of alcohol dependence presents after having left precordial chest pain described as pressure in nature at 1500 that's lasted throughout the day. Notes having weakness to his BLE, but no reported collapse. Please see PE findings. Lab markers demonstrate stable Hgb 9.2, no left shift or bandemia. Patient with stable thrombocytopenia. Chemistries with evidence of dehydration with Na 147, Cl 109. Glucose 134. T bili stable at 2.3. UA unremarkable. Alcohol demonstrates a level of 342.5. Patient placed on clinical research monitor and underwent basic cardiac work-up, which failed to demon ischemia, infarction, or pericarditis. Patient remained hemodynamically stable throughout ED couse. Patient was gently hydrated NS and administered various nutrients including thiamine, folic acid, and magnesium. Patient resting comfortably throughout ED stay. Will obtain serial EKG and troponin, if unremarkable, will discharge on his own accord in the AM. Patient data External records reviewed:: [facility] previous records (Per chart review, patient was seen here on 09/30/25 for bright red blood per rectum.) Clinical information provided by:: patient Social determinants that could affect healthcare access:: alcohol use Patient has the following chronic illnesses:: cirrhosis secondary to alcohol use disorder, decompensated liver disease with esophageal varices How is presenting disease/condition affected by chronic disease/condition?: uneffected by Evaluation data The following diagnostics were reviewed and interpreted by me:: lab results, radiology exam(s) and EKG tracing(s) Lab and/or radiology exams considered but not ordered:: none Interpretation Summary: EKG done at 2116, sinus rhythm, rate of 97, no acute pathological ST segment changes, no ectopy, evidence of RVH, left axis deviation, according to my interpretation. Repeat EKG done at 0136, sinus tachycardia, rate of 109, no acute pathological ST segment changes, no ectopy, evidence of RVH, left axis deviation, according to my interpretation. [facility] Report Signed Patient: KOLBY RON Record#: [id number] Birthdate: 1980 Age/Sex: 44 / M Location: [facility] Attending Dr: Ordering Physician: Geraldine Lee Date of Service: 10/12/25 Procedure(s): XR chest 1V Accession Number(s): [id number] cc: Cezar Adams MD; Zach Masters MD; Geraldine Lee~ EXAMINATION: PA chest single view TECHNIQUE: Upright PA chest single view Date and time: October 12, 2025, 2124 hours INDICATIONS: Chest pain shortness of breath beginning 2 days ago. FINDINGS: Mild prominence left ventricle No pneumonia or pulmonary edema Old right-sided rib fractures IMPRESSION: No active disease Dictated By: Zach Masters MD Signed By: <Electronically signed by Zach Masters MD in OV> 10/12/254 Medications / Prescriptions Medications or Prescriptions considered but not ordered:: none Medication administrations:: Medication Administration History Discontinued Medications Acetaminophen (Acetaminophen 325 Mg Tablet) 650 mg PO X1 ONE Stop: 10/13/25 00:01 Last Admin: 10/13/25 00:29 Dose: Not Given Documented By: CAMDEN Non-Admin Reason: Patient Refused Folic Acid (Folic Acid Inj 1 Mg/0.2 Ml) 1 mg IVP X1 ONE Stop: 10/13/25 00:00 Last Admin: 10/13/25 00:25 Dose: 1 mg Documented By: CAMDEN Magnesium Sulfate (Magnesium Sulfate Ivpb) 2 gm in 50 mls @ 25 mls/hr IV X1 ONE Stop: 10/13/25 01:58 Last Infusion: 10/13/25 02:30 Dose: Infused Documented By: Admin: 10/13/25 00:27 Dose: 25 mls/hr Documented By: CAMDEN Sodium Chloride (Ns) 500 mls @ 250 mls/hr IV .Q2H ONE Stop: 10/13/25 01:59 Last Infusion: 10/13/25 02:30 Dose: Infused Documented By: Admin: 10/13/25 00:28 Dose: 250 mls/hr Documented By: CAMDEN Thiamine HCl (Thiamine Inj 100 Mg/Ml Vial 2 Ml) 100 mg IVP X1 ONE Stop: 10/13/25 00:00 Last Admin: 10/13/25 00:28 Dose: 100 mg Documented By: CAMDEN see above Consultations Consultation(s) initiated? (list below): No Diagnosis Chest Pain Differential Diagnosis: atypical chest pain, st elevation myocardial infarction, costochondritis and other (NSTEMI, dehydration, electrolyte abnormality) Most likely diagnosis given after review of the tests above:: see clinical impression below Admission Indicated Admission indicated?: not indicated Admission Request Was there a request for admission?: No Disposition Plan Disposition Plan: Discharge Discharge Attestation Discharge Attestation: The patient and all family members were given an opportunity to ask questions and understood the discharge instructions. Discharge instructions specifically effects, indications for sooner follow up or return to the emergency department, and the expected course of current diagnosis. Patient condition: Stable Discharge Plan Plan Patient Disposition: HOME (Self Care) Discharge Disposition comment: Stable Prescriptions/Referrals Prescriptions/Med Rec: No Action pantoprazole 40 mg tablet,delayed release (DR/EC) 40 mg PO QDAY Qty: 90 0RF lactulose 10 gram/15 mL solution 10 g PO TID Patient Comments: TAKE 15 ML NEEDED ORALLY 3 TIMES A DAY thiamine mononitrate (vit B1) 100 mg Tablet 100 mg PO QDAY Qty: 30 0RF hydrocortisone acetate [Anusol-HC] 25 mg suppository 25 mg TN BID Qty: 24 0RF calcium polycarbophil [FiberCon] 625 mg tablet 1,250 mg PO BID Qty: 30 0RF Referrals: Cezar Adams MD [Primary Care Provider, Family Practice] - In 1 week Problem List Clinical Impression: Nonspecific chest pain, Alcohol dependence with acute intoxication, continuous Impression comment: Nonspecific chest pain. Alcohol dependence Patient/Caregiver Discharge Instructions Discharge Activity: activity as tolerated Diet Instructions: Avoid hot and spicy foods/high citrus foods. Education Materials: Alcoholism Resources Additional Instructions: Avoid excessive alcohol consumption. Medication as directed. Follow-up with primary care for consideration of outpatient stress testing Print Language: Macedonian Stand Alone Forms: Kallie Award Info., Patient Portal Info Letter
[2025-10-12 23:47] VITALS: BP 130/73; PULSE 105; RESP 19; TEMP 36.6; O2SAT 97
[2025-10-13] MEDS: FOLIC ACID INJ 1 MG/0.2 ML IVP (00:25)
[2025-10-13] MEDS: Magnesium Sulfate 2 GM Ivpb 2 GM/50 ML BAG IV (00:27)
[2025-10-13] MEDS: SODIUM CHLORIDE 0.9% 500 ML 500 ML 250 ML IV (00:28)
[2025-10-13] MEDS: THIAMINE INJ 100 MG/ML VIAL 2 ML IVP (00:28)
[2025-10-13 00:32] LABS: Alcohol, Blood Medical 342.5 mg/dL (0-10.0)
--- NOTE | 2025-10-13 01:06 | EKG_ITS ---
[facility] Test Date: 2025-10-13 Pat Name: KOLBY RON Department: Room: - Gender: Male Station Operator: : 1980 Requested By: Patel Perez Order Number: [id number] Reading MD: Patel Perez Measurements Intervals [place] Rate: 109 P: 39 ND: 165 QRS: -34 QRSD: 108 T: 26 QT: 364 QTc: 492 Interpretive Statements SINUS TACHYCARDIA LEFT AXIS DEVIATION [QRS AXIS < -30] Compared to ECG 10/12/2025 21:16:40 Supraventricular rhythm no longer present Right ventricular hypertrophy no longer present /store/S0/[id number].pdf
[2025-10-13 01:33] LABS: Troponin I 0.024 ng/mL (0.0-0.045)
[2025-10-13 06:17] VITALS: BP 103/63; PULSE 112; RESP 18; TEMP 37.3; O2SAT 99
== END 2025-10-13 06:42 | disposition home or self-care (01) ==
PROVIDERS: Nurse Practitioner Family; Emergency Provider Emergency Medicine; PCP Family Medicine
DX: F10.229 Alcohol dependence with intoxication, unspecified (principal); R07.89 Other chest pain; R06.02 Shortness of breath; R00.0 Tachycardia, unspecified; K70.30 Alcoholic cirrhosis of liver without ascites; Y90.8 Blood alcohol level of 240 mg/100 ml or more
CPT/HCPCS: 36415; 71045; 80053; 80320; 81001; 83880; 84484; 85025; 93005; 96365; 96366; 96375; 99284; J3411; J3475; J3490; J7999; G0480

== ENCOUNTER 2025-10-25 10:55 | Emergency (ER) | payer MEDICAID, SELFPAY ==
[2025-10-25 10:57] VITALS: PULSE 74; RESP 16; O2SAT 96
[2025-10-25 11:44] VITALS: BP 98/60; PULSE 71; RESP 18; TEMP 36.7; O2SAT 95; BMI 29.9
--- NOTE | 2025-10-25 11:55 | XR_ITS ---
EXAMINATION: AP chest single view TECHNIQUE: Sitting AP portable chest single view Date and time: October 25, 2025, 1208 hours, comparison October 12, 2025 INDICATIONS: Chest pain today. FINDINGS: Mild enlargement cardiac contour Mild to moderate vascular congestion. No gilberto pulmonary edema, no lobar pneumonia Old fractures right clavicle and right ribs IMPRESSION: Mild enlargement cardiac contour with mild to moderate vascular congestion
--- NOTE | 2025-10-25 11:59 | EDNOTE_ITS ---
ED General RME/HPI General Chief complaint: General Adult/Misc Complain Stated complaint: FEELS SHAKY Time Seen by Provider: 10/25/25 11:40 Arrival date/time: 10/25/25 10:55 This is a 44-year-old male that comes into the emergency room with multiple complaints. Patient has complaints of runny nose, chest pain, shortness of breath. Patient states that he is homeless. Patient reports that his last drink was earlier today. Patient has had several ER visits for alcohol intoxication. Patient said this morning he just felt really weak and he also complains of a mild headache. Related Data Home Medications ?Medication ?Instructions ?Recorded ?Confirmed lactulose 10 gram/15 mL oral 10 g PO TID liver cirrhos is 08/24/25 08/24/25 solution Previous Rx's ?Medication ?Instructions ?Recorded thiamine mononitrate (vit B1) 100 100 mg PO QDAY #30 t abs 04/02/25 mg tablet pantoprazole 40 mg tablet,delayed 40 mg PO QDAY #90 ta bs 06/28/25 release calcium polycarbophil 625 mg 1,250 mg (2 x 625 mg) PO BID #30 09/30/25 tablet (FiberCon) tabs hydrocortisone acetate 25 mg 25 mg NC BID #24 ea 09/30 rectal suppository (Anusol-HC) Allergies Allergy/AdvReac Type Severity Reaction Status Date / Time No Known Allergies Allergy Verified 11/01/25 08:29 Review of Systems Review of Systems Systems Reviewed: All systems reviewed, normal except as documented Past Medical History Past Medical History NEUROLOGIC: Negative Neurological Disorders or Seizures CARDIAC: Positive Myocardial Infarction, Angina and Hypertension; Negative Cardiac Disorders, Cardiac Arrhythmia, Atrial Fibrillation, Heart Murmur, Coronary Artery Disease, Atherosclerotic Heart Disease, Peripheral Vascular Disease, Hypercholesterolemia, Aneurysm, Congestive Heart Failure, Congenital Heart Disease, Rheumatic Fever, Cardiomyopathy, Edema, Pericarditis, Cellulitis, Deep Vein Thrombosis, Hypotension or Varicose Veins RESPIRATORY: Negative Chronic Obstructive Pulmonary Disease (COPD) or Asthma GASTROINTESTINAL: Positive Hepatitis, Gastrointestinal Bleed, Esophageal Varices and Gastroesophageal Reflux Disease; Negative Gastrointestinal Disorders, Cirrhosis, Pancreatitis, Celiac Disease, Gall Bladder Disease, Bettencourt's Esophagus, Colitis, Ulcerative Colitis, Diverticulitis, Diverticulosis, Ulcer, Irritable Bowel, Crohn's Disease, Obstructive Bowel, Hiatal Hernia, Hemorrhoids or Obesity GENITOURINARY: Negative Genitourinary Disorders or Renal Disease MUSCULOSKELETAL: Negative Musculoskeletal Disorders ENT: Negative Cataracts, Glaucoma, Blind, Retinal Detachment, Macular Degeneration, Ear Infection, Deafness or Eye Prosthesis ENDOCRINE: Negative Endocrine Disorders, Diabetes Mellitus Type 1, Diabetes Mellitus Type 2, Hypoglycemia, [place]'s Syndrome, Tadeo's Disease, Hyperthyroidism, Hypothyroidism, Parathyroid Disease, Pituitary Disease, Systemic Lupus Erythematosus, Syndrome of Inappropriate Antidiuretic Hormone (SIADH), Adrenal Disease or Graves' Disease HEMATOLOGIC: Positive Anemia; Negative Blood Disorders or Sickle Cell Disease PSYCHO/SOCIAL: Positive Recreational Drug Use, Depression and Anxiety OTHER HISTORY: Positive Hospitalization, Falls, Blood Transfusions and Chicken Pox; Negative Autoimmune Disease, Down Syndrome, Developmental Delay, Blood Transfusion Reaction, Anesthesia Reactions, Organ Transplant, MRSA, VRSA, Clostridium Difficile or Cancer Family History FAMILY HISTORY: Negative Family Psychiatric Problems, Family Respiratory Disorders, Family Cardiac Disorders, Family Gastrointestinal Problems, Family Cancer, Family Surgery or Family Anesthesia Reaction Surgical History SURGICAL: Negative Cardiac Surgery, Pacemaker, Endocrine Surgery, Ear Surgery, Abdominal Surgery, Nephrectomy, Joint Replacement, Neurologic Surgery, Vasectomy or Organ Transplant Social History SMOKING STATUS: Never smoker SECOND HAND EXPOSURE: No SUBSTANCE USE: methamphetamine ED Exam Narrative Physical exam: VITAL SIGNS: Reviewed. GENERAL APPEARANCE: Alert and interactive, follows commands, no acute distress, poor hygiene HEAD AND FACE: Non-traumatic. ENT: PERRL, conjuctiva pink and clear, eyelid no trauma, Mucous membrane moist. NECK: Supple, nontender, no nuchal rigidity. CHEST: No tenderness, no crepitus, no paradoxical movement, no retractions. LUNGS: Clear, well ventilated, symmetric, no rales, no wheezing, no rhonchi, no stridor, good breath sounds bilaterally. HEART: Regular rate, regular rhythm, no murmur, no gallops. ABDOMEN: Soft, nondistended NEUROLOGICAL: Gross motor function intact sensory function intact, Appropriate for age. MUSCULOSKELETAL: low back nontender, full range of motion. EXTREMITIES: No redness no swelling no skin breakdown on bilateral foot and leg. Distal neurovascular status intact bilateral foot SKIN: Color pink, dry. Course Quality Measures none Orders Category Date Time Status Bedside COVID-19 Antigen Test NOW Care 10/25/25 11:56 Completed Bedside Influenza A&B Antigen Test NOW Care 10/25/25 11:56 Completed XR chest 1V Stat Exams 10/25/25 11:55 Completed BNP [B-Type Natriuretic Peptide] Stat Lab 10/25/25 12:05 Completed CBC Stat Lab 10/25/25 12:05 Completed Comprehensive Metabolic Panel Stat Lab 10/25/25 12:05 Completed Troponin I Stat Lab 10/25/25 12:05 Completed Acetaminophen Tab [Tylenol ES Tab] Med 10/25/25 11:55 Discontinued 1,000 mg PO X1 ONE Ibuprofen Tab [Motrin Tab] Med 10/25/25 11:55 Discontinued 600 mg PO X1 ONE Vital Signs Vital signs: Vital Signs Temperature 98.0 F 10/25/25 11:44 Pulse Rate 71 10/25/25 11:44 Respiratory Rate 18 10/25/25 11:44 Blood Pressure 98/60 10/25/25 11:44 Pulse Oximetry (%) 95 10/25/25 11:44 Oxygen Delivery Method Room Air 10/25/25 11:44 Discharge Plan Plan Patient Disposition: Elopement Prescriptions/Referrals Prescriptions/Med Rec: No Action pantoprazole 40 mg tablet,delayed release (DR/EC) 40 mg PO QDAY Qty: 90 0RF lactulose 10 gram/15 mL solution 10 g PO TID Patient Comments: TAKE 15 ML NEEDED ORALLY 3 TIMES A DAY thiamine mononitrate (vit B1) 100 mg Tablet 100 mg PO QDAY Qty: 30 0RF hydrocortisone acetate [Anusol-HC] 25 mg suppository 25 mg NC BID Qty: 24 0RF calcium polycarbophil [FiberCon] 625 mg tablet 1,250 mg PO BID Qty: 30 0RF Referrals: Cezar Adams MD [Primary Care Provider, Family Practice] - In 1 week Problem List Clinical Impression: Alcoholism, chronic Patient/Caregiver Discharge Instructions Discharge Activity: activity as tolerated Print Language: Iraqi PA/RECORDS MANAGEMENT ANALYST Supervising Physician PA/RECORDS MANAGEMENT ANALYST Supervising Physician: lauren CERVANTES Narrative MDM hospital course (for use when minimal MDM required): We looked for pt in waiting room and pt not found. Pt eloped. Pt did not wait to have labs reviewed or to see if his symptoms improved. Clinical Information Provided by: patient Medical Records reviewed [facility] Meds/Rx considered, not ordered None Chronic Illness/Social Conditions which may negatively complicate care or outcome(s)-explain: Homeless Medication Administration(s) Medication Administration History Discontinued Medications Acetaminophen (Acetaminophen 500 Mg Tablet) 1,000 mg PO X1 ONE Stop: 10/25/25 11:56 Last Admin: 10/25/25 12:27 Dose: 1,000 mg Documented By: JOHN Ibuprofen (Ibuprofen Tab 600 Mg Tablet) 600 mg PO X1 ONE Stop: 10/25/25 11:56 Last Admin: 10/25/25 12:27 Dose: 600 mg Documented By: JOHN
[2025-10-25 12:14] LABS: Basophils # (Auto) 0.0 Thou/mm3 (0.0-0.2); Basophils % (Auto) 1 % (0-2.5); Eosinophils # (Auto) 0.5 Thou/mm3 (0.0-0.5); Eosinophils % (Auto) 11 % (0-10); Hematocrit 25.6 % (41.0-53.0); Immature Granulocytes Auto 0.01 Thou/mm3 (0.00-0.00); Lymphocytes # (Auto) 1.3 Thou/mm3 (1.0-4.8); Lymphocytes % (Auto) 28 % (10-50); Mean Corpuscular HGB Conc 32.8 g/dl (31.0-37.0); Mean Corpuscular Hemoglobin 30.4 pg (25.0-35.0); Mean Corpuscular Volume 93 fL (80-100); Monocytes # (Auto) 0.7 Thou/mm3 (0.0-0.8); Monocytes % (Auto) 14 % (0-12); Neutrophils # (Auto) 2.2 Thou/mm3 (1.8-7.7); Neutrophils % (Auto) 46 % (37-80); Nucleated Red Blood Cell # 0.00 Thou/mm3 (0.00-0.00); Nucleated Red Blood Cell % 0 /100 WBC (0); RDW Standard Deviation 65.6 fL (35.1-43.9); Red Blood Count 2.76 Miln/mm3 (4.50-5.90); White Blood Count 4.7 Thou/mm3 (3.8-10.6)
[2025-10-25 12:26] LABS: Hemoglobin 8.4 g/dL (13.5-16.0); Platelet Count 34 Thou/mm3 (140-440)
[2025-10-25] MEDS: IBUPROFEN TAB 600 MG TABLET PO (12:27)
[2025-10-25] MEDS: ACETAMINOPHEN 500 MG TABLET 1000 MG PO (12:27)
[2025-10-25 12:36] LABS: B-Type Natriuretic Peptide 307 pg/mL (0-100)
[2025-10-25 12:38] LABS: Alanine Aminotransferase 22 U/L (10-49); Albumin, Serum 3.1 gm/dL (3.5-5.0); Albumin/Globulin Ratio 0.7 (1.2-2.2); Alkaline Phosphatase 194 U/L (46-116); Anion Gap 11 (7-16); Aspartate Amino Transferase 81 U/L (0-34); BUN/Creatinine Ratio 12 Ratio (12-20); Bilirubin,Total 2.3 mg/dL (0.3-1.2); Blood Urea Nitrogen 7 mg/dL (9-23); Calcium 7.8 mg/dL (8.3-10.6); Calcium (Corrected) 8.5 mg/dL (8.5-10.1); Carbon Dioxide 24.5 mMol/L (20.0-31.0); Chloride 107 mMol/L (98-107); Creatinine (Component) 0.6 mg/dL (0.6-1.3); Estimated Creatinine Clearance 156.2 mL/min (>60); Globulin 4.3 gm/dL (2.3-3.5); Glucose 105 mg/dL (74-106); Osmolality,Calculated 281 (275-295); Potassium 4.2 mMol/L (3.4-5.1); Slide Review Platelets confirmed; Sodium 142 mMol/L (136-145); Total Protein 7.4 gm/dL (5.7-8.2); Troponin I 0.033 ng/mL (0.0-0.045); eGFR > 60 See Note
--- NOTE | 2025-10-25 14:01 | PC.NURSE ---
pt called inside and outside ED lobby; no response at this time
--- NOTE | 2025-10-25 14:40 | PC.NURSE ---
pt called inside and outside ED lobby; no response a this time
--- NOTE | 2025-10-25 16:31 | PC.NURSE ---
called for review; no response
== END 2025-10-25 16:31 | disposition left against medical advice (07) ==
LOC: SERX 12:27
PROVIDERS: Nurse Practitioner Family; Emergency Provider Emergency Medicine; PCP Family Medicine
DX: F10.20 Alcohol dependence, uncomplicated (principal); R07.9 Chest pain, unspecified; Z59.00 Homelessness unspecified
CPT/HCPCS: 36415; 71045; 80053; 83880; 84484; 85025; 87502; 87635; 99283; A9270

== ENCOUNTER 2025-11-01 08:26 | Emergency (ER) | payer MEDICAID, SELFPAY ==
[2025-11-01 08:27] VITALS: PULSE 92; RESP 20; O2SAT 98; BMI 26.6
[2025-11-01 08:32] VITALS: BP 109/75; PULSE 76; RESP 20; TEMP 36.6; O2SAT 99
--- NOTE | 2025-11-01 09:52 | XR_ITS ---
EXAMINATION: PA chest single view TECHNIQUE: Upright PA chest single view Date and time: November 01, 2025, 1007 hours, comparison October 25, 2025 INDICATIONS: Chest pain today. FINDINGS: Minor prominence cardiac contour No pneumonia or pulmonary edema. Old right-sided rib fractures. IMPRESSION: No pneumonia or pulmonary edema
--- NOTE | 2025-11-01 09:52 | EKG_ITS ---
[facility] Test Date: 2025-11-01 Pat Name: KOLBY RNO Department: Room: - Gender: Male Scheduler: : 1980 Requested By: Jen Borrero Order Number: [id number] Reading MD: Jen Borrero Measurements Intervals [place] Rate: 84 P: 45 [place]: 157 QRS: -6 QRSD: 98 T: 45 QT: 406 QTc: 482 Interpretive Statements SINUS RHYTHM Compared to ECG 10/13/2025 01:36:20 Sinus tachycardia no longer present Left-axis deviation no longer present /store/S0/[id number]
--- NOTE | 2025-11-01 13:10 | PD.EDCHEST ---
ED Chest Pain RME/HPI General Chief Complaint: Chest Pain Stated Complaint: CHEST WALL PAIN Time Seen by Provider: 11/01/25 08:44 Arrival date/time: 11/01/25 08:26 This is a 44-year-old male that comes into the emergency room with complaints of chest wall pain. Patient comes to the emergency room regularly. Patient states he also has been drinking. Patient also complaints of shortness of breath earlier in the day but no longer having shortness of breath. Patient has a history of chronic alcoholism Related Data Home Medications ?Medication ?Instructions ?Recorded ?Confirmed lactulose 10 gram/15 mL oral 10 g PO TID liver cirrhosis 08/24/25 08/24/25 solution Previous Rx's ?Medication ?Instructions ?Recorded thiamine mononitrate (vit B1) 100 100 mg PO QDAY #30 tabs 04/02/25 mg tablet pantoprazole 40 mg tablet,delayed 40 mg PO QDAY #90 tabs 06/28/25 release calcium polycarbophil 625 mg 1,250 mg (2 x 625 mg) PO BID #30 09/30/25 tablet (FiberCon) tabs hydrocortisone acetate 25 mg 25 mg NC BID #24 ea 09/30/25 rectal suppository (Anusol-HC) Allergies Allergy/AdvReac Type Severity Reaction Status Date / Time No Known Allergies Allergy Verified 11/01/25 08:29 Review of Systems Review of Systems Systems Reviewed: All systems reviewed, normal except as documented Past Medical History Past Medical History NEUROLOGIC: Negative Neurological Disorders or Seizures CARDIAC: Positive Myocardial Infarction, Angina and Hypertension; Negative Cardiac Disorders, Cardiac Arrhythmia, Atrial Fibrillation, Heart Murmur, Coronary Artery Disease, Atherosclerotic Heart Disease, Peripheral Vascular Disease, Hypercholesterolemia, Aneurysm, Congestive Heart Failure, Congenital Heart Disease, Rheumatic Fever, Cardiomyopathy, Edema, Pericarditis, Cellulitis, Deep Vein Thrombosis, Hypotension or Varicose Veins RESPIRATORY: Negative Chronic Obstructive Pulmonary Disease (COPD) or Asthma GASTROINTESTINAL: Positive Hepatitis, Gastrointestinal Bleed, Esophageal Varices and Gastroesophageal Reflux Disease; Negative Gastrointestinal Disorders, Cirrhosis, Pancreatitis, Celiac Disease, Gall Bladder Disease, Bettencourt's Esophagus, Colitis, Ulcerative Colitis, Diverticulitis, Diverticulosis, Ulcer, Irritable Bowel, Crohn's Disease, Obstructive Bowel, Hiatal Hernia, Hemorrhoids or Obesity GENITOURINARY: Negative Genitourinary Disorders or Renal Disease MUSCULOSKELETAL: Negative Musculoskeletal Disorders ENT: Negative Cataracts, Glaucoma, Blind, Retinal Detachment, Macular Degeneration, Ear Infection, Deafness or Eye Prosthesis ENDOCRINE: Negative Endocrine Disorders, Diabetes Mellitus Type 1, Diabetes Mellitus Type 2, Hypoglycemia, Awais's Syndrome, Tadeo's Disease, Hyperthyroidism, Hypothyroidism, Parathyroid Disease, Pituitary Disease, Systemic Lupus Erythematosus, Syndrome of Inappropriate Antidiuretic Hormone (SIADH), Adrenal Disease or Graves' Disease HEMATOLOGIC: Positive Anemia; Negative Blood Disorders or Sickle Cell Disease PSYCHO/SOCIAL: Positive Recreational Drug Use, Depression and Anxiety OTHER HISTORY: Positive Hospitalization, Falls, Blood Transfusions and Chicken Pox; Negative Autoimmune Disease, Down Syndrome, Developmental Delay, Blood Transfusion Reaction, Anesthesia Reactions, Organ Transplant, MRSA, VRSA, Clostridium Difficile or Cancer Family History FAMILY HISTORY: Negative Family Psychiatric Problems, Family Respiratory Disorders, Family Cardiac Disorders, Family Gastrointestinal Problems, Family Cancer, Family Surgery or Family Anesthesia Reaction Surgical History SURGICAL: Negative Cardiac Surgery, Pacemaker, Endocrine Surgery, Ear Surgery, Abdominal Surgery, Nephrectomy, Joint Replacement, Neurologic Surgery, Vasectomy or Organ Transplant Social History SMOKING STATUS: Never smoker SECOND HAND EXPOSURE: No SUBSTANCE USE: methamphetamine ED Exam Narrative Physical exam: VITAL SIGNS: Reviewed. GENERAL APPEARANCE: Alert and interactive, follows commands, no acute distress, HEAD AND FACE: Non-traumatic. ENT: PERRL, conjuctiva pink and clear, eyelid no trauma, Mucous membrane moist. NECK: Supple, nontender, no nuchal rigidity. CHEST: No tenderness, no crepitus, no paradoxical movement, no retractions. LUNGS: Clear, well ventilated, symmetric, no rales, no wheezing, no rhonchi, no stridor, good breath sounds bilaterally. HEART: Regular rate, regular rhythm, no murmur, no gallops. ABDOMEN: Soft, nondistended, soft nontender NEUROLOGICAL: Gross motor function intact sensory function intact, Appropriate for age. MUSCULOSKELETAL: low back nontender, full range of motion. EXTREMITIES: No redness no swelling no skin breakdown on bilateral foot and leg. Distal neurovascular status intact bilateral foot SKIN: Color pink, dry Course Quality Measures none Orders Category Date Time Status Bedside COVID-19 Antigen Test NOW Care 11/01/25 09:52 Completed Bedside Influenza A&B Antigen Test NOW Care 11/01/25 09:52 Completed EKG (ED ONLY) *Do not use* NOW Care 11/01/25 09:52 Completed EKG (ED Only) Stat Exams 11/01/25 09:52 Draft XR chest 1V Stat Exams 11/01/25 09:52 Completed Vital Signs Vital signs: Vital Signs Temperature 97.9 F 11/01/25 08:32 Pulse Rate 76 11/01/25 08:32 Respiratory Rate 20 11/01/25 08:32 Blood Pressure 109/75 11/01/25 08:32 Pulse Oximetry (%) 99 11/01/25 08:32 Oxygen Delivery Method Room Air 11/01/25 08:32 PROCEDURES: EKG Interpretation #1: Date of EK11/01/25 Time of EK:01 Rate: 84 Interpretation: Interpreted by me (Sinus rhythm) EKG Impression: No ectopy, Normal QRS and Normal intervals Chest Pain MDM Narrative MDM Narrative:: EKG shows sinus rhythm.chest x ray: FINDINGS: Minor prominence cardiac contour No pneumonia or pulmonary edema. Old right-sided rib fractures. IMPRESSION: No pneumonia or pulmonary edema EKG shows sinus rhythm. Patient admits to drinking prior to coming to the emergency room. Patient told to follow-up with his primary doctor in 1 to 2 days. [place] to emergency room symptoms change or worsen. Patient verbalized understanding. Dragon dictation: Although this document has been carefully reviewed, there may still be some phonetic and other typographical errors. These errors are purely grammatical due to imperfections in the software program and should not be construed in any way to compromise the substance of the patient's medical care during this visit. Patient data External records reviewed:: [facility] previous records Clinical information provided by:: patient Social determinants that could affect healthcare access:: housing Patient has the following chronic illnesses:: See note How is presenting disease/condition affected by chronic disease/condition?: uneffected by Evaluation data The following diagnostics were reviewed and interpreted by me:: lab results, radiology exam(s) and EKG tracing(s) Lab and/or radiology exams considered but not ordered:: See note Interpretation Summary: See note Medications / Prescriptions Medications or Prescriptions considered but not ordered:: None Medication administrations:: See note Consultations Consultation(s) initiated? (list below): No Diagnosis Chest Pain Differential Diagnosis: pneumothorax, atypical chest pain, st elevation myocardial infarction and chest pain Most likely diagnosis given after review of the tests above:: Chronic alcoholism homeless Admission Indicated Admission indicated?: not indicated Admission Request Was there a request for admission?: No Disposition Plan Disposition Plan: Discharge Discharge Attestation Discharge Attestation: The patient and all family members were given an opportunity to ask questions and understood the discharge instructions. Discharge instructions specifically effects, indications for sooner follow up or return to the emergency department, and the expected course of current diagnosis. Patient condition: Stable Discharge Plan Plan Patient Disposition: HOME (Self Care) Patient condition on transfer: Stable Prescriptions/Referrals Prescriptions/Med Rec: No Action pantoprazole 40 mg tablet,delayed release (DR/EC) 40 mg PO QDAY Qty: 90 0RF lactulose 10 gram/15 mL solution 10 g PO TID Patient Comments: TAKE 15 ML NEEDED ORALLY 3 TIMES A DAY thiamine mononitrate (vit B1) 100 mg Tablet 100 mg PO QDAY Qty: 30 0RF hydrocortisone acetate [Anusol-HC] 25 mg suppository 25 mg NC BID Qty: 24 0RF calcium polycarbophil [FiberCon] 625 mg tablet 1,250 mg PO BID Qty: 30 0RF Referrals: Cezar Adams MD [Primary Care Provider, Family Practice] - In 1 week Problem List Clinical Impression: Alcoholism Patient/Caregiver Discharge Instructions Discharge Activity: activity as tolerated Education Materials: Alcohol Addiction Additional Instructions: William un zamzam con wyatt medico de cabecera en las proximas 24-48 horas. Regrese a la kati de emergencias si hay evidencia de que los signos o sintomas empeoran. Print Language: Somali Stand Alone Forms: Kallie Award Info., Patient Portal Info Letter PA/HALVER MACHINE OPERATOR Supervising Physician PA/HALVER MACHINE OPERATOR Supervising Physician: patrick
== END 2025-11-01 13:34 | disposition home or self-care (01) ==
PROVIDERS: Emergency Provider Nurse Practitioner Family; PCP Family Medicine
DX: F10.20 Alcohol dependence, uncomplicated (principal); R07.89 Other chest pain
CPT/HCPCS: 71045; 87502; 87635; 93005; 99283

== ENCOUNTER 2025-11-02 13:45 | Emergency (ER) | payer MEDICAID, SELFPAY ==
[2025-11-02 13:49] VITALS: PULSE 118; RESP 24; O2SAT 98; BMI 28.3
[2025-11-02 13:54] VITALS: BP 129/82; PULSE 115; RESP 18; TEMP 36.5; O2SAT 95
[2025-11-02 14:29] LABS: Basophils # (Auto) 0.1 Thou/mm3 (0.0-0.2); Basophils % (Auto) 2 % (0-2.5); Eosinophils # (Auto) 0.1 Thou/mm3 (0.0-0.5); Eosinophils % (Auto) 2 % (0-10); Hematocrit 28.9 % (41.0-53.0); Hemoglobin 9.3 g/dL (13.5-16.0); Immature Granulocytes Auto 0.03 Thou/mm3 (0.00-0.00); Lymphocytes # (Auto) 0.6 Thou/mm3 (1.0-4.8); Lymphocytes % (Auto) 15 % (10-50); Mean Corpuscular HGB Conc 32.2 g/dl (31.0-37.0); Mean Corpuscular Hemoglobin 30.4 pg (25.0-35.0); Mean Corpuscular Volume 94 fL (80-100); Monocytes # (Auto) 0.3 Thou/mm3 (0.0-0.8); Monocytes % (Auto) 8 % (0-12); Neutrophils # (Auto) 2.8 Thou/mm3 (1.8-7.7); Neutrophils % (Auto) 72 % (37-80); Nucleated Red Blood Cell # 0.00 Thou/mm3 (0.00-0.00); Nucleated Red Blood Cell % 0 /100 WBC (0); RDW Standard Deviation 63.7 fL (35.1-43.9); Red Blood Count 3.06 Miln/mm3 (4.50-5.90); White Blood Count 3.8 Thou/mm3 (3.8-10.6)
[2025-11-02 14:37] LABS: Platelet Count 32 Thou/mm3 (140-440)
[2025-11-02 14:45] LABS: Slide Review Platelets confirmed
[2025-11-02 15:03] LABS: Amphetamine/Methamp Scrn,U Negative (Negative); Barbiturate Screen,Urine Negative (Negative); Benzodiazepines Screen,Urine Positive (Negative); Benzoylecgonine Screen, Ur Negative (Negative); Fentanyl Screen,Urine Negative (Negative); Opiate Screen,Urine Negative (Negative); THC Screen,Urine Negative (Negative)
[2025-11-02 15:03] LABS: Alanine Aminotransferase 25 U/L (10-49); Albumin, Serum 3.8 gm/dL (3.5-5.0); Albumin/Globulin Ratio 0.8 (1.2-2.2); Alcohol, Blood Medical 345.0 mg/dL (0-10.0); Alkaline Phosphatase 154 U/L (46-116); Anion Gap 17 (7-16); Aspartate Amino Transferase 106 U/L (0-34); BUN/Creatinine Ratio 8 Ratio (12-20); Bilirubin,Total 2.8 mg/dL (0.3-1.2); Blood Urea Nitrogen < 5 mg/dL (9-23); Calcium 8.3 mg/dL (8.3-10.6); Calcium (Corrected) 8.5 mg/dL (8.5-10.1); Carbon Dioxide 23.2 mMol/L (20.0-31.0); Chloride 103 mMol/L (98-107); Creatinine (Component) 0.6 mg/dL (0.6-1.3); Estimated Creatinine Clearance 150.5 mL/min (>60); Globulin 4.8 gm/dL (2.3-3.5); Glucose 120 mg/dL (74-106); Osmolality,Calculated 283 (275-295); Potassium 3.2 mMol/L (3.4-5.1); Sodium 143 mMol/L (136-145); Total Protein 8.6 gm/dL (5.7-8.2); eGFR > 60 See Note
--- NOTE | 2025-11-02 15:09 | PD.EDADULT ---
ED General RME/HPI General Chief complaint: Alcohol Stated complaint: ETOH Time Seen by Provider: 11/02/25 13:55 Arrival date/time: 11/02/25 13:45 CC: Camryn HPI patient was presented to the ER via EMS with stable vital signs, the patient is well-known to us for recurrent visits for intoxication. Today is no different stating he had 1 beer . Patient said the shaking started after he swallowed a packet of powder , that his friend had given him. EMS reports stable vital signs. Patient is awake alert and oriented to self slurred speech which is baseline when he is intoxicated. No fine hand and tremens Related Data Home Medications ?Medication ?Instructions ?Recorded ?Confirmed lactulose 10 gram/15 mL oral 10 g PO TID liver cirrhosis 08/24/25 08/24/25 solution Previous Rx's ?Medication ?Instructions ?Recorded thiamine mononitrate (vit B1) 100 100 mg PO QDAY #30 tabs 04/02/25 mg tablet pantoprazole 40 mg tablet,delayed 40 mg PO QDAY #90 tabs 06/28/25 release calcium polycarbophil 625 mg 1,250 mg (2 x 625 mg) PO BID #30 09/30/25 tablet (FiberCon) tabs hydrocortisone acetate 25 mg 25 mg [place] BID #24 ea 09/30/25 rectal suppository (Anusol-HC) Allergies Allergy/AdvReac Type Severity Reaction Status Date / Time No Known Allergies Allergy Verified 11/01/25 08:29 Review of Systems Review of Systems Narrative Review of Systems: GEN: No fever, no chills, no weight loss EYES: No discharge, no visual changes, no pain HEENT: No ear pain, no congestion, no sore throat PULM: No shortness of breath, no cough, no congestion CV: No chest pain, no dyspnea on exertion, no palpitations GI: No nausea, no vomiting, no diarrhea, no pain, no constipation : No frequency, no urgency, no dysuria MUSC/SKEL: No joint pain, no back pain SKIN: No rash PSYCH: No hallucinations, no depression HEME/LYMPH: No easy bleeding or bruising tendencies NEURO: No weakness, no headache Past Medical History Past Medical History NEUROLOGIC: Negative Neurological Disorders or Seizures CARDIAC: Positive Myocardial Infarction, Angina and Hypertension; Negative Cardiac Disorders, Cardiac Arrhythmia, Atrial Fibrillation, Heart Murmur, Coronary Artery Disease, Atherosclerotic Heart Disease, Peripheral Vascular Disease, Hypercholesterolemia, Aneurysm, Congestive Heart Failure, Congenital Heart Disease, Rheumatic Fever, Cardiomyopathy, Edema, Pericarditis, Cellulitis, Deep Vein Thrombosis, Hypotension or Varicose Veins RESPIRATORY: Negative Chronic Obstructive Pulmonary Disease (COPD) or Asthma GASTROINTESTINAL: Positive Hepatitis, Gastrointestinal Bleed, Esophageal Varices and Gastroesophageal Reflux Disease; Negative Gastrointestinal Disorders, Cirrhosis, Pancreatitis, Celiac Disease, Gall Bladder Disease, Bettencourt's Esophagus, Colitis, Ulcerative Colitis, Diverticulitis, Diverticulosis, Ulcer, Irritable Bowel, Crohn's Disease, Obstructive Bowel, Hiatal Hernia, Hemorrhoids or Obesity GENITOURINARY: Negative Genitourinary Disorders or Renal Disease MUSCULOSKELETAL: Negative Musculoskeletal Disorders ENT: Negative Cataracts, Glaucoma, Blind, Retinal Detachment, Macular Degeneration, Ear Infection, Deafness or Eye Prosthesis ENDOCRINE: Negative Endocrine Disorders, Diabetes Mellitus Type 1, Diabetes Mellitus Type 2, Hypoglycemia, Awais's Syndrome, [place]'s Disease, Hyperthyroidism, Hypothyroidism, Parathyroid Disease, Pituitary Disease, Systemic Lupus Erythematosus, Syndrome of Inappropriate Antidiuretic Hormone (SIADH), Adrenal Disease or Graves' Disease HEMATOLOGIC: Positive Anemia; Negative Blood Disorders or Sickle Cell Disease PSYCHO/SOCIAL: Positive Recreational Drug Use, Depression and Anxiety OTHER HISTORY: Positive Hospitalization, Falls, Blood Transfusions and Chicken Pox; Negative Autoimmune Disease, Down Syndrome, Developmental Delay, Blood Transfusion Reaction, Anesthesia Reactions, Organ Transplant, MRSA, VRSA, Clostridium Difficile or Cancer Family History FAMILY HISTORY: Negative Family Psychiatric Problems, Family Respiratory Disorders, Family Cardiac Disorders, Family Gastrointestinal Problems, Family Cancer, Family Surgery or Family Anesthesia Reaction Surgical History SURGICAL: Negative Cardiac Surgery, Pacemaker, Endocrine Surgery, Ear Surgery, Abdominal Surgery, Nephrectomy, Joint Replacement, Neurologic Surgery, Vasectomy or Organ Transplant Social History SMOKING STATUS: Never smoker SECOND HAND EXPOSURE: No SUBSTANCE USE: methamphetamine ED Exam Narrative Physical exam: [General: Not in any acute distress Head normocephalic HEENT: Eyes pupils are PERRLA EOMs are intact mouth pink moist membranes uvula is midline swallow symmetrical within acceptable limits Neck is supple nontender Chest equal chest rise nontender to palpation Respiratory: Clear to auscultation no wheezes crackles or rubs CV: Rate rhythm is regular no murmurs rubs or clicks Abdomen is soft nontender no masses positive bowel sounds all 4 quadrants Back: No CVA tenderness no spinous process tenderness from cervical spine thoracic and lumbar spine Skin: Intact no petechiae rash induration ulceration or crepitus Extremities: Moving all extremity against resistance cap refill less than 2 seconds neurosensory intact Neuro: Awake alert oriented x2, person and place, Glascow coma 15 no focal deficits] Course Course Course Narrative: Patient's claim of 1 beer is equivalent to an alcohol level of 345. Patient will be observed for signs of withdrawal and then discharged. Patient reassessed at 1600, he is awake alert not even have slurred speech. When addressed the issue that there is nothing in his system other than benzos and the alcohol the patient states that he wants to go home we will discharge him home with alcohol intoxication. Quality Measures none Orders Category Date Time Status Alcohol, Blood Medical Stat Lab 11/02/25 14:13 Completed CBC Stat Lab 11/02/25 14:13 Completed CMP [Comprehensive Metabolic Panel] Stat Lab 11/02/25 14:13 Completed Drug Screen,Urine Stat Lab 11/02/25 14:28 Completed Vital Signs Vital signs: Vital Signs Temperature 97.7 F 11/02/25 13:54 Pulse Rate 115 H 11/02/25 13:54 Respiratory Rate 18 11/02/25 13:54 Blood Pressure 129/82 11/02/25 13:54 Pulse Oximetry (%) 95 11/02/25 13:54 Oxygen Delivery Method Room Air 11/02/25 13:54 Discharge Plan Plan Patient Disposition: HOME (Self Care) Patient condition on transfer: Stable Prescriptions/Referrals Prescriptions/Med Rec: No Action pantoprazole 40 mg tablet,delayed release (DR/EC) 40 mg PO QDAY Qty: 90 0RF lactulose 10 gram/15 mL solution 10 g PO TID Patient Comments: TAKE 15 ML NEEDED ORALLY 3 TIMES A DAY thiamine mononitrate (vit B1) 100 mg Tablet 100 mg PO QDAY Qty: 30 0RF hydrocortisone acetate [Anusol-HC] 25 mg suppository 25 mg [place] BID Qty: 24 0RF calcium polycarbophil [FiberCon] 625 mg tablet 1,250 mg PO BID Qty: 30 0RF Referrals: Cezar Adams MD [Primary Care Provider, Family Practice] - In 1 week Problem List Clinical Impression: Alcohol abuse Patient/Caregiver Discharge Instructions Education Materials: ED Alcohol Abuse Print Language: Danish Stand Alone Forms: Kallie Award Info., Patient Portal Info Letter PA/SECOND BALLER Supervising Physician PA/SECOND BALLER Supervising Physician: Surendra Oliveira ENP MDM Clinical Information Provided by: patient and EMS Medical Records reviewed [facility] and EMS Meds/Rx considered, not ordered None Labs/Rad/Tests considered, not ordered None Chronic Illness/Social Conditions Explain: Alcoholism EKG EKG not done Labs Labs: interpreted by or Lab(s) Interpretation(s): CBC shows no acute leukocytosis stable anemia with a hemoglobin of 9.3 hematocrit of 28.9. Platelets at 32. CMP shows a potassium of 3.2 gap of 17 BUN less than 5 glucose of 120. T. bili of 2.8 AST 106 ALT 25 alk phos of 145. UDS is positive for benzos Alcohol level is 345. Imaging Imaging interpretation: none Diagnosis Differential Diagnosis ED Complaint MDM: Alcohol intoxication polysubstance abuse benzos abuse
== END 2025-11-02 18:14 | disposition home or self-care (01) ==
PROVIDERS: Registered Nurse General Practice; Emergency Provider Family Medicine; PCP Family Medicine
DX: F10.10 Alcohol abuse, uncomplicated (principal); Y90.8 Blood alcohol level of 240 mg/100 ml or more
CPT/HCPCS: 36415; 80053; 80307; 80320; 85025; 99282; G0480